=== PATIENT | female | born 1990 | race Caucasian/White ===

== ENCOUNTER 2016-02-13 19:09 | Emergency (ER) | payer OTHER ==
[2016-02-13 19:13] VITALS: BP 135/81; PULSE 93; RESP 18; TEMP 99.1
[2016-02-13] MEDS ORDERED: DIPH,PERTUS(ACELL)TETVAC-LF 0.5 ML VIAL IM ONE (20:47)
--- NOTE | 2016-02-13 20:55 | ED ---
Animal Bite HPI - General Chief Complaint: Animal Bite Stated Complaint: Animal bite/Hand Time Seen by Provider: 02/13/16 20:12 Source: patient, RN notes reviewed Mode of arrival: ambulatory Limitations: no limitations - History of Present Illness Initial Comments: Patient's 25-year-old female presents to the emergency room for evaluation of animal bite. Patient states a few hours ago she was bit by a 10 week old cat. Patient states she was bit in her left hand. Patient states she has been having increasing pain and swelling at the bite carroll. Patient states a previous senior hadoop developer did take the cat to the vet but they are not sure if the cat received immunizations. Patient states it hurts to move her thumb where the bite ashley is. Patient states she's not sure if she is up-to-date on her tetanus vaccine. Patient denies any other injuries during incident. - Related Data Home Medications Medication Instructions Recorded Confirmed Norgestimate-Ethinyl Estradiol 1 tab PO QAM 12/22/13 02/13/16 [Mononessa 28 Tablet] QUEtiapine FUMARATE [SEROquel] 300 mg PO HS 12/22/13 02/13/16 Sertraline [Zoloft] 100 mg PO HS 10/24/14 02/13/16 Levothyroxine Sodium [Synthroid] 50 mcg PO QAM 03/10/15 02/13/16 traZODone HCL 100 mg PO HS 10/04/15 02/13/16 Albuterol Inhaler [Ventolin Hfa 2 puff INHALATION RT-Q6H PRN 10/24/15 02/13/16 Inhaler] OXcarbazepine 600 mg PO QAM 10/24/15 02/13/16 Previous Rx's Medication Instructions Recorded Amoxicillin/Potassium Clav 1 each PO Q12HR #20 tab 02/13/16 [Augmentin 875-125 Tablet] Allergies Allergy/AdvReac Type Severity Reaction Status Date / Time ceftriaxone sodium Allergy Rash/Hives Verified 02/13/16 20:02 [From Rocephin] latex Allergy Rash/Hives Verified 02/13/16 20:02 bupropion HCl AdvReac Hallucinati Verified 02/13/16 20:02 [From Wellbutrin] ons Review of Systems ROS Statement: Those systems with pertinent positive or pertinent negative responses have been documented in the HPI. ROS Other: All systems not noted in ROS Statement are negative. Past Medical History Past Medical History: Asthma, Thyroid Disorder Additional Past Medical History / Comment(s): INSOMNIA; BODERLINE PERSONALITY DISORDER, back pain hx of syncope, MURMUR CHILD,BRONCHITIS,CARPAL TUNNEL, ARHTIRITS,UTI'S, MIGRAINES. History of Any Multi-Drug Resistant Organisms: MRSA Date of last positivie culture/infection: 10/2013, MDRO Source:: HIP/legs/arm/left breast area/ RT INNER GROIN Past Surgical History: Adenoidectomy, Tonsillectomy Additional Past Surgical History / Comment(s): teeth pulled. SEVERAL AREAS ON BODY HAD i&D FROM AREAS WITH MRSA Additional Past Anesthesia/Blood Transfusion Reaction / Comment(s): CLAUSTERPHOBIA Past Psychological History: Bipolar, PTSD Smoking Status: Current every day smoker Past Alcohol Use History: Rare Past Drug Use History: Marijuana - Past Family History Mother Family Medical History: Myocardial Infarction ([place]) Additional Family Medical History / Comment(s): AT AGE 45 FROM [place] Father Additional Family Medical History / Comment(s): WHEN PT WAS 9 MONTHS OLD FROM A BRAIN ANUERYSM General Exam - General Exam Comments Initial Comments: Sitting in exam room in no acute distress. Limitations: no limitations General appearance: alert, in no apparent distress Head exam: Present: atraumatic, normocephalic, normal inspection Eye exam: Present: normal appearance ENT exam: Present: normal exam Neck exam: Present: normal inspection Respiratory exam: Present: normal lung sounds bilaterally. Absent: respiratory distress Cardiovascular Exam: Present: regular rate, normal rhythm, normal heart sounds Left Hand Wrist exam: Present: full ROM, tenderness. Absent: normal inspection (3 puncture wounds over the thenar eminence of the left hand with surrounding mild edema.) Neuro motor exam: Present: wrist extension intact, thumb opposition intact, thumb IP flexion intact, thumb adduction intact, fingers 2-5 abduction intact Vascular: Present: normal capillary refill (Capillary refill less than 2 seconds ), radial pulse (2+), ulnar pulse (2+) Back exam: Present: normal inspection Neurological exam: Present: alert, oriented X3, CN II-XII intact, normal gait Psychiatric exam: Present: normal affect, normal mood Skin exam: Present: warm, dry, intact, normal color. Absent: rash Course Vital Signs 02/13/16 19:11 Temperature 99.1 F Pulse Rate 93 Respiratory 18 Rate Blood Pressure 135/81 O2 Sat by Pulse 99 Oximetry Medical Decision Making - Medical Decision Making Patient is a 25-year-old female since emergency room for evaluation of cat bite. Patient be placed on prophylactic antibiotics and advised to keep the area clean and dry. Patient was updated on her tetanus vaccine. Patient states that she knows the senior hadoop developer of the cat and will keep in contact if there is any abnormal behavior of the cat. Advised patient to return for any worsening symptoms. Patient states she understands everything that was discussed with her. Case discussed with Dr. Xiong. - Radiology Data Radiology results: report reviewed, image reviewed Disposition Clinical Impression: Cat bite Disposition: HOME SELF-CARE Condition: Good Instructions: Animal Bite (ED) Additional Instructions: Tae antibiotics as directed. Soak hand in warm water and antibacterial soap 15 minutes at a time, 3 times a day. Take Tylenol or Motrin as needed for pain. Please follow up with primary care provider in 24-48 hours for reevaluation. If any new symptom arises, symptoms worsen or fever develops, return to ER as soon as possible. Prescriptions: Amoxicillin/Potassium Clav [Augmentin 875-125 Tablet] 1 each PO Q12HR #20 tab Referrals: Jenelle Sherman MD [Primary Care Provider] - 1-2 days Time of Disposition: 21:40
--- NOTE | 2016-02-13 21:15 | XR ---
EXAMINATION TYPE: XR hand complete LT DATE OF EXAM: 02/13/2016 8:56 PM COMPARISON: NONE HISTORY: CAT bite to the base of the thumb today. Pain and swelling. TECHNIQUE: 3 views FINDINGS: There is evidence of soft tissue swelling, but no soft tissue emphysema and no radiopaque f oreign body. The bones and joints have normal appearance. IMPRESSION: Soft tissue swelling apparent.
== END 2016-02-13 21:57 | disposition home or self-care (01) ==
LOC: EC 19:09
DX: S61.052A Open bite of left thumb without damage to nail, initial encounter (principal); W55.01XA Bitten by cat, initial encounter; Z23 Encounter for immunization; E07.9 Disorder of thyroid, unspecified; Z79.899 Other long term (current) drug therapy; Z88.1 Allergy status to other antibiotic agents; Z91.040 Latex allergy status; Z88.8 Allergy status to other drugs, medicaments and biological substances; Z79.3 Long term (current) use of hormonal contraceptives; F60.9 Personality disorder, unspecified; F43.10 Post-traumatic stress disorder, unspecified; F17.200 Nicotine dependence, unspecified, uncomplicated
CPT/HCPCS: 90471; 90715; 99283

== ENCOUNTER 2016-02-20 14:19 | Emergency (ER) | payer OTHER ==
[2016-02-20 14:38] VITALS: BP 149/70; PULSE 88; RESP 20; TEMP 97.8
[2016-02-20] MEDS ORDERED: KETOROLAC 60 MG/2 ML VIAL IM STA (15:41)
[2016-02-20] MEDS ORDERED: methylPREDNISolone SOD SUCCI 125 MG/2 ML VIAL IM STA (15:41)
[2016-02-20] MEDS ORDERED: ORPHENADRINE 30 MG/ML 2 ML VIAL IM STA (15:41)
--- NOTE | 2016-02-20 15:58 | ED ---
Neck Injury/Pain HPI - General Chief Complaint: Neck Pain/Injury Stated Complaint: neck & back pain Time Seen by Provider: 02/20/16 15:34 Source: RN notes reviewed Mode of arrival: ambulatory Limitations: no limitations - History of Present Illness Initial Comments: 25 yo female presents to the ER with cc of left sided neck pain. Patient has been having this pain for about one week. Patient does have a history of herniated disc in the left side of the neck. Patient states that it radiates down the left arm worsening movement of the shoulder the neck and states she has limited movement. Patient denies any fever chills with this. Patient states that she was concerned due to the continued pain she called her doctor and she was referred here. Patient states that she's refinishing an MRI to figure out what is going on. Patient denies any cough cold runny nose with this. Patient states that she is not currently having any recent. Patient states she was placed on Motrin and muscle relaxers did not seem to help. Patient denies any recent fever, chills, shortness of breath, chest pain, back pain, abdominal pain, nausea vomiting, numbness or tingling, dysuria or hematuria, constipation or diarrhea, headaches or visual changes, or any other current symptoms. - Related Data Home Medications Medication Instructions Recorded Confirmed Norgestimate-Ethinyl Estradiol 1 tab PO QAM 12/22/13 02/20/16 [Mononessa 28 Tablet] QUEtiapine FUMARATE [SEROquel] 300 mg PO HS 12/22/13 02/20/16 Sertraline [Zoloft] 100 mg PO HS 10/24/14 02/20/16 Levothyroxine Sodium [Synthroid] 50 mcg PO QAM 03/10/15 02/20/16 traZODone HCL 100 mg PO HS 10/04/15 02/20/16 Albuterol Inhaler [Ventolin Hfa 2 puff INHALATION RT-Q6H PRN 10/24/15 02/20/16 Inhaler] OXcarbazepine 600 mg PO QAM 10/24/15 02/20/16 Cyclobenzaprine [Flexeril] 5 mg PO TID 02/20/16 02/20/16 Previous Rx's Medication Instructions Recorded predniSONE 50 mg PO DAILY #5 tab 02/20/16 traMADol HCl [Ultram] 50 mg PO Q4H PRN #10 tab 02/20/16 Allergies Allergy/AdvReac Type Severity Reaction Status Date / Time ceftriaxone sodium Allergy Rash/Hives Verified 02/20/16 16:00 [From Rocephin] latex Allergy Rash/Hives Verified 02/20/16 16:00 bupropion HCl AdvReac Hallucinati Verified 02/20/16 16:00 [From Wellbutrin] ons Review of Systems ROS Statement: Those systems with pertinent positive or pertinent negative responses have been documented in the HPI. ROS Other: All systems not noted in ROS Statement are negative. Past Medical History Past Medical History: Asthma, Thyroid Disorder Additional Past Medical History / Comment(s): INSOMNIA; BODERLINE PERSONALITY DISORDER, back pain hx of syncope, MURMUR CHILD,BRONCHITIS,CARPAL TUNNEL, ARHTIRITS,UTI'S, MIGRAINES. History of Any Multi-Drug Resistant Organisms: MRSA Date of last positivie culture/infection: 10/2013, MDRO Source:: HIP/legs/arm/left breast area/ RT INNER GROIN Past Surgical History: Adenoidectomy, Tonsillectomy Additional Past Surgical History / Comment(s): teeth pulled. SEVERAL AREAS ON BODY HAD i&D FROM AREAS WITH MRSA Additional Past Anesthesia/Blood Transfusion Reaction / Comment(s): CLAUSTERPHOBIA Past Psychological History: Bipolar, PTSD Smoking Status: Current every day smoker Past Alcohol Use History: Rare Past Drug Use History: Marijuana - Past Family History Mother Family Medical History: Myocardial Infarction ([place]) Additional Family Medical History / Comment(s): AT AGE 45 FROM [place] Father Additional Family Medical History / Comment(s): WHEN PT WAS 9 MONTHS OLD FROM A BRAIN ANUERYSM General Exam Limitations: no limitations General appearance: alert, in no apparent distress Head exam: Present: atraumatic, normocephalic, normal inspection Eye exam: Present: normal appearance, PERRL, EOMI. Absent: scleral icterus, conjunctival injection, periorbital swelling ENT exam: Present: normal exam, mucous membranes moist Neck exam: Present: normal inspection, tenderness (Diffusely), full ROM ( Limited due to pain). Absent: meningismus, lymphadenopathy, thyromegaly Respiratory exam: Present: normal lung sounds bilaterally. Absent: respiratory distress, wheezes, rales, rhonchi, stridor Cardiovascular Exam: Present: regular rate, normal rhythm, normal heart sounds. Absent: systolic murmur, diastolic murmur, rubs, gallop, clicks Extremities exam: Present: normal inspection, full ROM, tenderness (Over the left shoulder), normal capillary refill. Absent: pedal edema, joint swelling, calf tenderness Back exam: Present: normal inspection Skin exam: Present: warm, dry, intact, normal color. Absent: rash Course Vital Signs 02/20/16 14:36 Temperature 97.8 F Pulse Rate 88 Respiratory 20 Rate Blood Pressure 149/70 O2 Sat by Pulse 99 Oximetry Medical Decision Making - Medical Decision Making 25-year-old female presents emergency Department chief complaint of neck pain. At this time patient did undergo an x-ray does not show an acute process. Patient was given injections and was started on steroids for home. Follow-up with Dr. Godinez. We discussed return parameters. We discussed all the patient' s questions. She stated that she understood and is in agreement the plan. Patient will be discharged. - Radiology Data Radiology results: report reviewed, image reviewed Disposition Clinical Impression: Cervical strain Disposition: HOME SELF-CARE Condition: Stable Instructions: Cervical Strain (ED) Additional Instructions: Please use medication as discussed. Please follow up with family doctor if symptoms have not improved over the next two days. Please return to the emergency room if your symptoms increase or worsen or for any other concerns. Prescriptions: predniSONE 50 mg PO DAILY #5 tab traMADol HCl [Ultram] 50 mg PO Q4H PRN #10 tab PRN Reason: Pain Referrals: Jenelle Sherman MD [Primary Care Provider] - 1-2 days Time of Disposition: 16:31
--- NOTE | 2016-02-20 16:28 | XR ---
EXAMINATION TYPE: XR cervical spine comp DATE OF EXAM: 02/20/2016 4:14 PM TECHNIQUE: Frontal, lateral, oblique, and open mouth view of the cervical spine are obtained. HISTORY: Right-sided neck pain. Popping injury. COMPARISON: Complete spine x-ray November 26, 2014 FINDINGS: The cervical spine is visualized in its entirety from C1 thru the top of T1 level, there i s stable and straightened alignment without evidence of acute fracture or dislocation. The pre-verte bral soft tissue appears within normal limits. The C1-C2 articulation is within normal limits on the open mouth view. Vertebral body heights and disc space heights are maintained The oblique images ar e within normal limits. Overlying soft tissue is unremarkable. IMPRESSION: Stable straightening of cervical spine otherwise unremarkable study. No acute fracture or dislocation is noted.
--- NOTE | 2016-02-20 16:32 | ED ---
Disposition Clinical Impression: Cervical strain Disposition: HOME SELF-CARE Condition: Stable Instructions: Cervical Strain (ED) Additional Instructions: Please use medication as discussed. Please follow up with family doctor if symptoms have not improved over the next two days. Please return to the emergency room if your symptoms increase or worsen or for any other concerns. Prescriptions: predniSONE 50 mg PO DAILY #5 tab traMADol HCl [Ultram] 50 mg PO Q4H PRN #10 tab PRN Reason: Pain Referrals: Jenelle Sherman MD [Primary Care Provider] - 1-2 days Luann Perez DO [Doctor of Osteopathic Medicine] - 1-2 days
== END 2016-02-20 16:44 | disposition home or self-care (01) ==
LOC: EC 14:19
DX: S16.1XXA Strain of muscle, fascia and tendon at neck level, initial encounter (principal); X58.XXXA Exposure to other specified factors, initial encounter; E07.9 Disorder of thyroid, unspecified; J45.909 Unspecified asthma, uncomplicated; F60.3 Borderline personality disorder; F31.9 Bipolar disorder, unspecified; F43.10 Post-traumatic stress disorder, unspecified; F17.200 Nicotine dependence, unspecified, uncomplicated; Z79.3 Long term (current) use of hormonal contraceptives; Z79.899 Other long term (current) drug therapy; Z88.1 Allergy status to other antibiotic agents; Z91.040 Latex allergy status
CPT/HCPCS: 99283; 96372 ×3; 72050; J2360; J2930; J1885

== ENCOUNTER → 2016-03-02 | Outpatient (CLI) | payer OTHER ==
--- NOTE | 2016-03-02 22:19 | MR ---
EXAMINATION TYPE: MR cspine/lspine wo con DATE OF EXAM: 03/02/2016 8:24 PM COMPARISON: 01/23/2014 HISTORY: Pain,Numbness,and Tingling upper and lower back Standard multiplanar, multisequence MRI departmental protocol Multiplanar, multisequence images of the cervical and lumbar spine were acquired. FINDINGS: The cervical vertebra have normal alignment. Disc spaces are fairly normal. There are posterior disc herniations at C5-6 and to a lesser extent C6-7. The spinal canal is narrowed to 7.5 mm at C5-6. Cerv ical spinal cord has normal signal pattern. There is no edema. Brainstem is intact. There is no cervi elida paraspinal mass. The lumbar vertebra have normal alignment. Disc spaces are normal. Neural foramina are widely patent. Posterior elements are intact. There is no compression fracture. Lumbar nerve roots appear normal. T here is no evidence of paraspinal mass. IMPRESSION: Cervical spine There is a new C5-6 moderate posterior cervical disc herniation in this relatively young patient comp ared to last exam. There is mild spinal stenosis. There is a small posterior C6-7 disc bulge without any impingement on the cervical spinal cord. Lumbar spine Normal MRI scan of the lumbar spine.
== END | disposition home or self-care (01) ==
LOC: RADMRIMAIN 19:33
PROVIDERS: ATTEND Internal Medicine
DX: M48.02 Spinal stenosis, cervical region (principal); M50.222 Other cervical disc displacement at C5-C6 level
CPT/HCPCS: 72141; 72148

== ENCOUNTER 2016-03-05 16:39 | Emergency (ER) | payer OTHER ==
[2016-03-05] MEDS ORDERED: ACETAMINOPHEN TAB 500 MG TAB PO STA (20:05)
--- NOTE | 2016-03-05 20:05 | ED ---
General Adult HPI - General Chief complaint: Nausea/Vomiting/Diarrhea Stated complaint: Skin Infection Time Seen by Provider: 03/05/16 19:12 Source: patient, RN notes reviewed Mode of arrival: wheelchair Limitations: no limitations - History of Present Illness Initial comments: 25-year-old female presents emergency Department chief complaint of multiple sores throughout her body as well as dysuria. Patient states she does have history of versus she's noticed possible little sores throughout the body she is concerned that her MRSA may be back. Patient states she's also had some burning and stinging with urination. Patient denies any fever or chills. Patient states that she just feels crampy and tired and weak. Patient states that there is no other symptoms at this time. Patient states she hasn't actually having diarrhea with that she has had some nausea but no vomiting. Patient states she was concerned due to just how often she felt so she thought that she should be evaluated. Patient denies any recent fever, chills, shortness of breath, chest pain, back pain, abdominal pain, vomiting, numbness or tingling, dysuria or hematuria, constipation or diarrhea, headaches or visual changes, or any other current symptoms. - Related Data Home Medications Medication Instructions Recorded Confirmed Norgestimate-Ethinyl Estradiol 1 tab PO QAM 12/22/13 03/05/16 [Mononessa 28 Tablet] QUEtiapine FUMARATE [SEROquel] 300 mg PO HS 12/22/13 03/05/16 Sertraline [Zoloft] 100 mg PO HS 10/24/14 03/05/16 Levothyroxine Sodium [Synthroid] 50 mcg PO QAM 03/10/15 03/05/16 traZODone HCL 100 mg PO HS 10/04/15 03/05/16 Albuterol Inhaler [Ventolin Hfa 2 puff INHALATION RT-Q6H PRN 10/24/15 03/05/16 Inhaler] OXcarbazepine 600 mg PO QAM 10/24/15 03/05/16 Cyclobenzaprine [Flexeril] 5 mg PO TID 02/20/16 03/05/16 Previous Rx's Medication Instructions Recorded Phenazopyridine [Pyridium] 100 mg PO TID #9 tablet 03/05/16 Sulfamethox-Tmp 800-160Mg [Bactrim 2 each PO Q12HR #56 tab 03/05/16 DS 800-160 mg] Allergies Allergy/AdvReac Type Severity Reaction Status Date / Time ceftriaxone sodium Allergy Rash/Hives Verified 03/05/16 19:58 [From Rocephin] latex Allergy Rash/Hives Verified 03/05/16 19:58 bupropion HCl AdvReac Hallucinati Verified 03/05/16 19:58 [From Wellbutrin] ons Review of Systems ROS Statement: Those systems with pertinent positive or pertinent negative responses have been documented in the HPI. ROS Other: All systems not noted in ROS Statement are negative. Past Medical History Past Medical History: Asthma, Thyroid Disorder Additional Past Medical History / Comment(s): INSOMNIA; BODERLINE PERSONALITY DISORDER, back pain hx of syncope, MURMUR CHILD,BRONCHITIS,CARPAL TUNNEL, ARHTIRITS,UTI'S, MIGRAINES. History of Any Multi-Drug Resistant Organisms: MRSA Date of last positivie culture/infection: 10/2013, MDRO Source:: HIP/legs/arm/left breast area/ RT INNER GROIN Past Surgical History: Adenoidectomy, Tonsillectomy Additional Past Surgical History / Comment(s): teeth pulled. SEVERAL AREAS ON BODY HAD i&D FROM AREAS WITH MRSA Additional Past Anesthesia/Blood Transfusion Reaction / Comment(s): CLAUSTERPHOBIA Past Psychological History: Bipolar, PTSD Smoking Status: Current every day smoker Past Alcohol Use History: Rare Past Drug Use History: Marijuana - Past Family History Mother Family Medical History: Myocardial Infarction ([place]) Additional Family Medical History / Comment(s): AT AGE 45 FROM [place] Father Additional Family Medical History / Comment(s): WHEN PT WAS 9 MONTHS OLD FROM A BRAIN ANUERYSM General Exam - General Exam Comments Initial Comments: General: The patient is awake and alert, in no distress, and does not appear acutely ill. Eye: Pupils are equal, round and reactive to light, extra-ocular movements are intact; there is normal conjunctiva bilaterally. No signs of icterus. Ears, nose, mouth and throat: There are moist mucous membranes and no oral lesions. Neck: The neck is supple, there is no tenderness. Cardiovascular: There is a regular rate and rhythm. No murmur, rub or gallop is appreciated. Respiratory: Lungs are clear to auscultation, respirations are non-labored, breath sounds are equal. No wheezes, stridor, rales, or rhonchi. Gastrointestinal: Soft, non-distended, non-tender abdomen without masses or organomegaly noted. There is no rebound or guarding present. No CVA tenderness. Bowel sounds are unremarkable. Back: There is no tenderness to palpation in the midline. There is no obvious deformity. No rashes noted. Musculoskeletal: Normal ROM, no tenderness, There is no pedal edema. There is no calf tenderness or swelling. Sensation intact. Pulses equal bilaterally 2+. Neurological: CN II-XII intact, There are no obvious motor or sensory deficits. Coordination appears grossly intact. Speech is normal. Skin: Skin is warm and dry and no rashes, does appear to have indurated area under the bilateral armpits and to the right knee no sign of fluctuation no sign of drainage no drainable obvious abscess noted. Psychiatric: Cooperative, appropriate mood & affect, normal judgment. Limitations: no limitations Course Vital Signs 03/05/16 17:10 Temperature 98.9 F Pulse Rate 88 Respiratory 16 Rate Blood Pressure 134/60 O2 Sat by Pulse 98 Oximetry Medical Decision Making - Medical Decision Making 25-year-old female presents emergency Department chief complaint of sores with a history of MRSA that do not show any obvious drainable abscesses as well as dysuria. At this time we will send a urinalysis. Patient's urinalysis initially appeared of UTI. We will start patient on Bactrim which should cover disorders as well as her UTI. We discussed return parameters and follow-up. We discussed all the patient's questions. She stated that she understood. She will be discharged home. - Lab Data Lab Results 03/05/16 03/05/16 Range/Units 20:29 20:29 Urine Color Yellow Urine Appearance Cloudy H (Clear) Urine pH 6.0 (5.0-8.0) Ur Specific Wendell 1.018 (1.001-1.035) Urine Protein Trace H (Negative) Urine Glucose (UA) Negative (Negative) Urine Ketones Negative (Negative) Urine Blood Negative (Negative) Urine Nitrate Positive H (Negative) Urine Bilirubin Negative (Negative) Urine Urobilinogen <2.0 (<2.0) mg/dL Ur Leukocyte Esterase Trace H (Negative) Urine WBC 7 H (0-5) /hpf Ur Squamous Epith Cells 25 H (0-4) /hpf Urine Bacteria Occasional H (None) /hpf Urine Mucus Occasional H (None) /hpf Urine HCG, Qual Not Detected (Not Detectd) Disposition Clinical Impression: Urinary tract infection, Abscess of axilla, right Disposition: HOME SELF-CARE Condition: Stable Instructions: Abscess (ED), Urinary Tract Infection in Women (ED) Additional Instructions: Please use medication as discussed. Please follow up with family doctor if symptoms have not improved over the next two days. Please return to the emergency room if your symptoms increase or worsen or for any other concerns. Prescriptions: Phenazopyridine [Pyridium] 100 mg PO TID #9 tablet Sulfamethox-Tmp 800-160Mg [Bactrim DS 800-160 mg] 2 each PO Q12HR #56 tab Referrals: Jenelle Sherman MD [Primary Care Provider] - 1-2 days Time of Disposition: 21:03
[2016-03-05 20:42] LABS: Appearance,Urine Cloudy (Clear); Bacteria,Urine Occasional /hpf; Bilirubin,Urine Negative (Negative); Glucose,Urine (UA) Negative (Negative); Ketones,Urine Negative (Negative); Leukocyte Esterase,Urine Trace (Negative); Mucus,Urine Occasional /hpf; Nitrite,Urine Positive (Negative); Particle Count 116093; Protein,Urine Trace (Negative); Specific Gravity,Urine 1.018 (1.001-1.035); Squamous Epithelial Cell,Urine 25 /hpf (0-4); UA Billing (MACRO vs. MICRO) MICRO; Urobilinogen,Urine <2.0 mg/dL (<2.0); WBC,Urine 7 /hpf (0-5)
[2016-03-05 21:11] VITALS: BP 119/66; PULSE 73; RESP 18; TEMP 98.5
== END 2016-03-05 21:11 | disposition home or self-care (01) ==
LOC: EC 16:39
DX: N39.0 Urinary tract infection, site not specified (principal); L02.411 Cutaneous abscess of right axilla; Z86.14 Personal history of Methicillin resistant Staphylococcus aureus infection; E07.9 Disorder of thyroid, unspecified; F60.3 Borderline personality disorder; F31.9 Bipolar disorder, unspecified; F43.10 Post-traumatic stress disorder, unspecified; F17.200 Nicotine dependence, unspecified, uncomplicated; Z79.3 Long term (current) use of hormonal contraceptives; Z79.899 Other long term (current) drug therapy; Z88.1 Allergy status to other antibiotic agents; Z91.040 Latex allergy status
CPT/HCPCS: 81001; 81025; 99284

== ENCOUNTER 2016-04-28 13:02 | Emergency (ER) | payer OTHER ==
[2016-04-28 13:10] VITALS: BP 122/58; PULSE 96; RESP 16; TEMP 98.8
--- NOTE | 2016-04-28 13:45 | ED ---
Skin/Abscess/FB HPI - General Chief complaint: Skin/Abscess/Foreign Body Stated complaint: eye problem Time Seen by Provider: 04/28/16 13:24 Source: patient, RN notes reviewed Mode of arrival: ambulatory Limitations: no limitations - History of Present Illness Initial comments: 25-year-old female presents to the emergency Department chief complaint of redness and swelling of the left upper lip. Patient states that this started about yesterday today she noticed a white head and she did pop and she did get some fluid out. 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 Patient states it is painful. Patient states she hasn't had any fevers or chills with this. Patient states that for the stye left eye that she is currently putting a cream on as well. Patient does admit to a history of multiple abscesses in the past. Patient states he normally in the axilla area. Patient states that she was concerned due to her continued symptoms in pain so she thought that she should be evaluated. Patient denies any recent fever, chills, shortness of breath, chest pain, back pain, abdominal pain, nausea vomiting, numbness or tingling, dysuria or hematuria, constipation or diarrhea, headaches or visual changes, or any other current symptoms. - Related Data Home Medications Medication Instructions Recorded Confirmed Norgestimate-Ethinyl Estradiol 1 tab PO QAM 12/22/13 04/28/16 [Mononessa 28 Tablet] QUEtiapine FUMARATE [SEROquel] 300 mg PO HS 12/22/13 04/28/16 Sertraline [Zoloft] 400 mg PO HS 10/24/14 04/28/16 Levothyroxine Sodium [Synthroid] 50 mcg PO QAM 03/10/15 04/28/16 traZODone HCL 100 mg PO HS 10/04/15 04/28/16 Albuterol Inhaler [Ventolin Hfa 2 puff INHALATION RT-Q6H PRN 10/24/15 04/28/16 Inhaler] OXcarbazepine 600 mg PO QAM 10/24/15 04/28/16 Cyclobenzaprine [Flexeril] 5 mg PO TID 02/20/16 04/28/16 Gabapentin [Neurontin] 100 mg PO TID 04/28/16 04/28/16 Previous Rx's Medication Instructions Recorded Mupirocin 2% Oint [Bactroban Oint] 1 applic TOPICAL TID #22 gm 04/28/16 Sulfamethox-Tmp 800-160Mg [Bactrim 2 each PO Q12HR #56 tab 04/28/16 DS 800-160 mg] Allergies Allergy/AdvReac Type Severity Reaction Status Date / Time ceftriaxone sodium Allergy Rash/Hives Verified 04/28/16 13:10 [From Rocephin] latex Allergy Rash/Hives Verified 04/28/16 13:10 bupropion HCl AdvReac Hallucinati Verified 04/28/16 13:10 [From Wellbutrin] ons Review of Systems ROS Statement: Those systems with pertinent positive or pertinent negative responses have been documented in the HPI. ROS Other: All systems not noted in ROS Statement are negative. Past Medical History Past Medical History: Asthma, Thyroid Disorder Additional Past Medical History / Comment(s): INSOMNIA; BODERLINE PERSONALITY DISORDER, back pain hx of syncope, MURMUR CHILD,BRONCHITIS,CARPAL TUNNEL, ARHTIRITS,UTI'S, MIGRAINES. History of Any Multi-Drug Resistant Organisms: MRSA Date of last positivie culture/infection: 10/2013, MDRO Source:: HIP/legs/arm/left breast area/ RT INNER GROIN Past Surgical History: Adenoidectomy, Tonsillectomy Additional Past Surgical History / Comment(s): teeth pulled. SEVERAL AREAS ON BODY HAD i&D FROM AREAS WITH MRSA Additional Past Anesthesia/Blood Transfusion Reaction / Comment(s): CLAUSTERPHOBIA Past Psychological History: Bipolar, PTSD Smoking Status: Current every day smoker Past Alcohol Use History: Rare Past Drug Use History: Marijuana - Past Family History Mother Family Medical History: Myocardial Infarction ([place]) Additional Family Medical History / Comment(s): AT AGE 45 FROM [place] Father Additional Family Medical History / Comment(s): WHEN PT WAS 9 MONTHS OLD FROM A BRAIN ANUERYSM General Exam Limitations: no limitations General appearance: alert, in no apparent distress Head exam: Present: other Eye exam: Present: normal appearance (Patient does appear to have a small pimple -like structure to the left upper lip that does have associated swelling of the left upper lip), PERRL, EOMI, other (Patient does appear to have stye to the left inner eye). Absent: scleral icterus, conjunctival injection, periorbital swelling Pupils: Present: normal accommodation ENT exam: Present: normal exam, mucous membranes moist Neck exam: Present: normal inspection. Absent: tenderness, meningismus, lymphadenopathy Respiratory exam: Present: normal lung sounds bilaterally. Absent: respiratory distress, wheezes, rales, rhonchi, stridor Cardiovascular Exam: Present: regular rate, normal rhythm, normal heart sounds. Absent: systolic murmur, diastolic murmur, rubs, gallop, clicks Neurological exam: Present: alert, oriented X3, CN II-XII intact. Absent: motor sensory deficit Psychiatric exam: Present: normal affect, normal mood Skin exam: Present: warm, dry, intact, normal color. Absent: rash Course Vital Signs 04/28/16 13:07 Temperature 98.8 F Pulse Rate 96 Respiratory 16 Rate Blood Pressure 122/58 O2 Sat by Pulse 98 Oximetry Medical Decision Making - Medical Decision Making 24-year-old female presents to the emergency Department chief complaint of facial abscess and stye left eye. This time we will start the patient on Bactroban cream. We will also start the patient antibiotics due to her history of MRSA. We discussed warm compresses .we did discuss return parameters and follow-up. We discussed all the patient's family's questions. He stated they understand patient is tender in plan. She'll be discharged. Disposition Clinical Impression: Hordeolum of left lower eyelid, Facial abscess Disposition: HOME SELF-CARE Condition: Stable Instructions: Abscess (ED), Stye (ED) Additional Instructions: Please use medication as discussed. Please follow up with family doctor if symptoms have not improved over the next two days. Please return to the emergency room if your symptoms increase or worsen or for any other concerns. Prescriptions: Mupirocin 2% Oint [Bactroban Oint] 1 applic TOPICAL TID #22 gm Sulfamethox-Tmp 800-160Mg [Bactrim DS 800-160 mg] 2 each PO Q12HR #56 tab Referrals: Jenelle Sherman MD [Primary Care Provider] - 1-2 days Time of Disposition: 13:45
== END 2016-04-28 13:49 | disposition home or self-care (01) ==
LOC: EC 13:02
DX: H00.015 Hordeolum externum left lower eyelid (principal); L02.01 Cutaneous abscess of face; E07.9 Disorder of thyroid, unspecified; F31.9 Bipolar disorder, unspecified; F43.10 Post-traumatic stress disorder, unspecified; F60.3 Borderline personality disorder; G56.00 Carpal tunnel syndrome, unspecified upper limb; F17.200 Nicotine dependence, unspecified, uncomplicated; Z86.14 Personal history of Methicillin resistant Staphylococcus aureus infection; Z98.890 Other specified postprocedural states; Z88.1 Allergy status to other antibiotic agents; Z91.040 Latex allergy status; Z88.8 Allergy status to other drugs, medicaments and biological substances; Z79.899 Other long term (current) drug therapy
CPT/HCPCS: 99283

== ENCOUNTER 2016-04-28 21:50 | Emergency (ER) | payer OTHER ==
[2016-04-28 22:00] VITALS: BP 149/82; PULSE 100; RESP 20; TEMP 100
[2016-04-28] MEDS ORDERED: IBUPROFEN 600 MG TAB PO STA (22:08)
[2016-04-28] MEDS ORDERED: MUPIROCIN 2% OINT 22 GM TUBE TOPICAL STA (22:08)
[2016-04-28] MEDS ORDERED: CLINDAMYCIN 150 MG CAP PO STA (22:08)
--- NOTE | 2016-04-28 22:12 | ED ---
Skin/Abscess/FB HPI - General Chief complaint: Skin/Abscess/Foreign Body Stated complaint: Revist/poss mrsa Time Seen by Provider: 04/28/16 22:01 Source: patient, RN notes reviewed Mode of arrival: ambulatory Limitations: no limitations - History of Present Illness Initial comments: 25-year-old female presents to the emergency Department chief complaint of left- sided facial swelling. Patient states that this started today. Patient states she was seen here she was prescribed and maxillary should not start mention of some increased swelling that is wondering if she can get her first dose of antibiotics. Patient states she hasn't had any nausea or vomiting with this. Patient states she has noticed increased swelling she has been using warm compresses. Patient denies any drainage from the area. Patient states she was concerned due to the continued swelling so she thought that she should be evaluated. Patient states that she is not currently having any other symptoms at this time.Patient denies any recent fever, chills, shortness of breath, chest pain, back pain, abdominal pain, nausea vomiting, numbness or tingling, dysuria or hematuria, constipation or diarrhea, headaches or visual changes, or any other current symptoms. - Related Data Home Medications Medication Instructions Recorded Confirmed Norgestimate-Ethinyl Estradiol 1 tab PO QAM 12/22/13 04/28/16 [Mononessa 28 Tablet] QUEtiapine FUMARATE [SEROquel] 300 mg PO HS 12/22/13 04/28/16 Sertraline [Zoloft] 400 mg PO HS 10/24/14 04/28/16 Levothyroxine Sodium [Synthroid] 50 mcg PO QAM 03/10/15 04/28/16 traZODone HCL 100 mg PO HS 10/04/15 04/28/16 Albuterol Inhaler [Ventolin Hfa 2 puff INHALATION RT-Q6H PRN 10/24/15 04/28/16 Inhaler] OXcarbazepine 600 mg PO QAM 10/24/15 04/28/16 Cyclobenzaprine [Flexeril] 5 mg PO TID 02/20/16 04/28/16 Gabapentin [Neurontin] 100 mg PO TID 04/28/16 04/28/16 Previous Rx's Medication Instructions Recorded Clindamycin [Cleocin] 450 mg PO Q8HR #90 capsule 04/28/16 Mupirocin 2% Oint [Bactroban Oint] 1 applic TOPICAL TID #22 gm 04/28/16 Sulfamethox-Tmp 800-160Mg [Bactrim 2 each PO Q12HR #56 tab 04/28/16 DS 800-160 mg] Allergies Allergy/AdvReac Type Severity Reaction Status Date / Time ceftriaxone sodium Allergy Rash/Hives Verified 04/28/16 13:10 [From Rocephin] latex Allergy Rash/Hives Verified 04/28/16 13:10 bupropion HCl AdvReac Hallucinati Verified 04/28/16 13:10 [From Wellbutrin] ons Review of Systems ROS Statement: Those systems with pertinent positive or pertinent negative responses have been documented in the HPI. ROS Other: All systems not noted in ROS Statement are negative. Past Medical History Past Medical History: Asthma, Thyroid Disorder Additional Past Medical History / Comment(s): INSOMNIA; BODERLINE PERSONALITY DISORDER, back pain hx of syncope, MURMUR CHILD,BRONCHITIS,CARPAL TUNNEL, ARHTIRITS,UTI'S, MIGRAINES. History of Any Multi-Drug Resistant Organisms: MRSA Date of last positivie culture/infection: 10/2013,-2015 MDRO Source:: HIP/legs/arm/left breast area/ RT INNER GROIN Past Surgical History: Adenoidectomy, Tonsillectomy Additional Past Surgical History / Comment(s): teeth pulled. SEVERAL AREAS ON BODY HAD i&D FROM AREAS WITH MRSA Additional Past Anesthesia/Blood Transfusion Reaction / Comment(s): CLAUSTERPHOBIA Past Psychological History: Bipolar, PTSD Smoking Status: Current every day smoker Past Alcohol Use History: Rare Past Drug Use History: Marijuana - Past Family History Mother Family Medical History: Myocardial Infarction ([place]) Additional Family Medical History / Comment(s): AT AGE 45 FROM [place] Father Additional Family Medical History / Comment(s): WHEN PT WAS 9 MONTHS OLD FROM A BRAIN ANUERYSM General Exam Limitations: no limitations General appearance: alert, in no apparent distress Head exam: Present: other (Patient is Swelling of the upper left lip.) Eye exam: Present: normal appearance, PERRL, EOMI. Absent: scleral icterus, conjunctival injection, periorbital swelling Neck exam: Present: normal inspection. Absent: tenderness, meningismus, lymphadenopathy Respiratory exam: Present: normal lung sounds bilaterally. Absent: respiratory distress, wheezes, rales, rhonchi, stridor Cardiovascular Exam: Present: regular rate, normal rhythm, normal heart sounds. Absent: systolic murmur, diastolic murmur, rubs, gallop, clicks Neurological exam: Present: alert, oriented X3, CN II-XII intact. Absent: motor sensory deficit Psychiatric exam: Present: normal affect, normal mood Skin exam: Present: warm, dry, intact, normal color. Absent: rash Course Vital Signs 04/28/16 21:57 Temperature 100 F H Pulse Rate 100 Respiratory 20 Rate Blood Pressure 149/82 O2 Sat by Pulse 98 Oximetry Medical Decision Making - Medical Decision Making 25-year-old female presents emergency Department with what appears to be a cellulitis of the left upper lip. At this time we will patient on clindamycin due to her history of MRSA. We'll give her first dose here as well as the pain. We discussed return parameters and follow-up. Patient stated that she understood all questions have been answered. She will be discharged. Disposition Clinical Impression: Facial abscess Disposition: HOME SELF-CARE Condition: Stable Instructions: Abscess (ED) Additional Instructions: Please use medication as discussed. Please follow up with family doctor if symptoms have not improved over the next two days. Please return to the emergency room if your symptoms increase or worsen or for any other concerns. Prescriptions: Clindamycin [Cleocin] 450 mg PO Q8HR #90 capsule Referrals: Jenelle Sherman MD [Primary Care Provider] - 1-2 days Time of Disposition: 22:11
== END 2016-04-28 22:26 | disposition home or self-care (01) ==
LOC: EC 21:50
DX: K13.0 Diseases of lips (principal); E07.9 Disorder of thyroid, unspecified; F31.9 Bipolar disorder, unspecified; F43.10 Post-traumatic stress disorder, unspecified; F60.3 Borderline personality disorder; M19.90 Unspecified osteoarthritis, unspecified site; F17.200 Nicotine dependence, unspecified, uncomplicated; Z79.3 Long term (current) use of hormonal contraceptives; Z79.899 Other long term (current) drug therapy; Z88.1 Allergy status to other antibiotic agents; Z88.8 Allergy status to other drugs, medicaments and biological substances; Z91.040 Latex allergy status
CPT/HCPCS: 99283

== ENCOUNTER 2016-04-29 12:16 | Inpatient (IN) | payer OTHER ==
[2016-04-29] MEDS ORDERED: IV VANCOMYCIN PER PHARMACY 1 EACH MISC MISCELLANE PRN (12:27)
[2016-04-29] MEDS ORDERED: KETOROLAC 30 MG/ML 1 ML VIAL IVP STA (12:27)
[2016-04-29] MEDS ORDERED: SODIUM CHLORIDE 0.9% 1,000 ML IV STA (12:27)
--- NOTE | 2016-04-29 12:39 | ED ---
Skin/Abscess/FB HPI <Edmar Restrepo - Last Filed: 04/29/16 13:41> - General Source: patient, RN notes reviewed Mode of arrival: ambulatory Limitations: no limitations <Gabby Salvador - Last Filed: 04/29/16 13:44> - General Chief complaint: Skin/Abscess/Foreign Body Stated complaint: LIP ISSUE Time Seen by Provider: 04/29/16 12:25 - History of Present Illness Initial comments: 24-year-old female presents to the emergency department with a chief complaint of left-sided facial swelling. Patient states that this started over the last 3 or 4 days. Patient states she was seen here yesterday starting antibiotics. Patient states continues to be swollen and tender today. Patient states that she was concerned because increased swelling in the low-grade fever so she thought that she should be evaluated. Patient states he tried Motrin with no improvement. Patient states she has been using the antibiotics. Patient states that she does have a history of MRSA. Patient has been here 2 times in this is her third visit in the last 12 hours. Patient denies any recent shortness of breath, chest pain, back pain, abdominal pain, nausea vomiting, numbness or tingling, dysuria or hematuria, constipation or diarrhea, headaches or visual changes, or any other current symptoms. (Gabby Salvador) - Related Data Home Medications Medication Instructions Recorded Confirmed Norgestimate-Ethinyl Estradiol 1 tab PO QAM 12/22/13 04/29/16 [Mononessa 28 Tablet] Sertraline [Zoloft] 100 mg PO HS 10/24/14 04/29/16 Levothyroxine Sodium [Synthroid] 50 mcg PO QAM 03/10/15 04/29/16 traZODone HCL 100 mg PO HS 10/04/15 04/29/16 Albuterol Inhaler [Ventolin Hfa 2 puff INHALATION RT-Q6H PRN 10/24/15 04/29/16 Inhaler] OXcarbazepine 600 mg PO BID 10/24/15 04/29/16 Cyclobenzaprine [Flexeril] 5 mg PO TID 02/20/16 04/29/16 Gabapentin [Neurontin] 100 mg PO TID 04/28/16 04/29/16 QUEtiapine [SEROquel] 400 mg PO HS 04/29/16 04/29/16 Previous Rx's Medication Instructions Recorded Clindamycin [Cleocin] 450 mg PO Q8HR #90 capsule 04/28/16 Mupirocin 2% Oint [Bactroban Oint] 1 applic TOPICAL TID #22 gm 04/28/16 Allergies Allergy/AdvReac Type Severity Reaction Status Date / Time ceftriaxone sodium Allergy Rash/Hives Verified 04/29/16 12:53 [From Rocephin] latex Allergy Rash/Hives Verified 04/29/16 12:53 bupropion HCl AdvReac Hallucinati Verified 04/29/16 12:53 [From Wellbutrin] ons Review of Systems ROS Other: All systems not noted in ROS Statement are negative. <Edmar Restrepo - Last Filed: 04/29/16 13:41> ROS Other: All systems not noted in ROS Statement are negative. <Gabby Salvador - Last Filed: 04/29/16 13:44> ROS Statement: Those systems with pertinent positive or pertinent negative responses have been documented in the HPI. Past Medical History Past Medical History: Asthma, Thyroid Disorder Additional Past Medical History / Comment(s): INSOMNIA; BODERLINE PERSONALITY DISORDER, back pain hx of syncope, MURMUR CHILD,BRONCHITIS,CARPAL TUNNEL, ARHTIRITS,UTI'S, MIGRAINES. History of Any Multi-Drug Resistant Organisms: MRSA Date of last positivie culture/infection: 10/2013,-2015 MDRO Source:: HIP/legs/arm/left breast area/ RT INNER GROIN Past Surgical History: Adenoidectomy, Tonsillectomy Additional Past Surgical History / Comment(s): teeth pulled. SEVERAL AREAS ON BODY HAD i&D FROM AREAS WITH MRSA Additional Past Anesthesia/Blood Transfusion Reaction / Comment(s): CLAUSTERPHOBIA Past Psychological History: Bipolar, PTSD Smoking Status: Current every day smoker Past Alcohol Use History: Rare Past Drug Use History: Marijuana - Past Family History Mother Family Medical History: Myocardial Infarction ([place]) Additional Family Medical History / Comment(s): AT AGE 45 FROM [place] Father Additional Family Medical History / Comment(s): WHEN PT WAS 9 MONTHS OLD FROM A BRAIN ANUERYSM <Gabby Salvador - Last Filed: 04/29/16 13:44> General Exam <Edmar Restrepo - Last Filed: 04/29/16 13:41> Limitations: no limitations <Gabby Salvador - Last Filed: 04/29/16 13:44> - General Exam Comments Initial Comments: General: The patient is awake and alert, in no distress, and does not appear acutely ill. Eye: Pupils are equal, round and reactive to light, extra-ocular movements are intact; there is normal conjunctiva bilaterally. No signs of icterus. Ears, nose, mouth and throat: There are moist mucous membranes and no oral lesions. Going to left upper lip that extends into the cheek, patient has no obvious abscess on oral exam. Neck: The neck is supple, there is no tenderness Cardiovascular: There is a regular rate and rhythm. No murmur, rub or gallop is appreciated. Respiratory: Lungs are clear to auscultation, respirations are non-labored, breath sounds are equal. No wheezes, stridor, rales, or rhonchi. Back: There is no tenderness to palpation in the midline. There is no obvious deformity. No rashes noted. Musculoskeletal: Normal ROM, no tenderness, There is no pedal edema. There is no calf tenderness or swelling. Sensation intact. Pulses equal bilaterally 2+. Neurological: CN II-XII intact, There are no obvious motor or sensory deficits. Coordination appears grossly intact. Speech is normal. Skin: Skin is warm and dry and no rashes or lesions are noted. Psychiatric: Cooperative, appropriate mood & affect, normal judgment. (Gabby Salvador) Course <Edmar Restrepo - Last Filed: 04/29/16 13:41> <Gabby Salvador - Last Filed: 04/29/16 13:44> Vital Signs 04/29/16 12:19 Temperature 100.0 F H Pulse Rate 109 H Respiratory 22 Rate Blood Pressure 139/84 O2 Sat by Pulse 96 Oximetry - Reevaluation(s) Reevaluation #1: 04/29/16 13:41 Patient does meet sepsis criteria. Unasyn will be started in addition to vancomycin. Case discussed in detail with Dr. Yee, who will admit his patient. Patient updated. Patient reevaluated by myself. (Edmar Restrepo) Medical Decision Making - Lab Data Result diagrams: 04/29/16 12:54 04/29/16 12:54 <Edmar Restrepo - Last Filed: 04/29/16 13:41> - Lab Data Result diagrams: 04/29/16 12:54 04/29/16 12:54 <Gabby Salvador - Last Filed: 04/29/16 13:44> - Medical Decision Making 25-year-old female presents for appears to be a facial cellulitis. At this time unless it patient IV antibiotics. She has been here 3 times last 12 hours will admit for IV antibiotics and had a MRSA coverage due to her history. This was discussed the patient and she is in agreement with plan. All questions have been answered. Levaquin was started for the patient for sepsis protocol. At this time we will admit the patient patient agreed with plan. (Gabby Salvador) - Lab Data Lab Results 04/29/16 04/29/16 04/29/16 Range/Units 12:54 12:54 12:54 WBC 12.2 H (3.8-10.6) k/uL RBC 4.36 (3.80-5.40) m/uL Hgb 13.1 (11.4-16.0) gm/dL Hct 39.3 (34.0-46.0) % MCV 90.0 (80.0-100.0) fL MCH 29.9 (25.0-35.0) pg MCHC 33.3 (31.0-37.0) g/dL RDW 12.2 (11.5-15.5) % Plt Count 196 (150-450) k/uL Neutrophils % 70 % Lymphocytes % 19 % Monocytes % 5 % Eosinophils % 1 % Basophils % 1 % Neutrophils # 8.5 H (1.3-7.7) k/uL Lymphocytes # 2.3 (1.0-4.8) k/uL Monocytes # 0.6 (0-1.0) k/uL Eosinophils # 0.1 (0-0.7) k/uL Basophils # 0.2 (0-0.2) k/uL Sodium 140 (137-145) mmol/L Potassium 4.2 (3.5-5.1) mmol/L Chloride 105 (98-107) mmol/L Carbon Dioxide 24 (22-30) mmol/L Anion Gap 11 mmol/L BUN 10 (7-17) mg/dL Creatinine 0.60 (0.52-1.04) mg/dL Est GFR (MDRD) Af Amer >60 (>60 ml/min/1.73 sqM) Est GFR (MDRD) Non-Af >60 (>60 ml/min/1.73 sqM) Glucose 84 (74-99) mg/dL Plasma Lactic Acid Eliu 1.1 (0.7-2.0) mmol/L Calcium 9.7 (8.4-10.2) mg/dL Total Bilirubin 0.4 (0.2-1.3) mg/dL AST 15 (14-36) U/L ALT 27 (9-52) U/L Alkaline Phosphatase 58 (38-126) U/L Total Protein 7.2 (6.3-8.2) g/dL Albumin 4.5 (3.5-5.0) g/dL Disposition <Edmar Restrepo - Last Filed: 04/29/16 13:41> Time of Disposition: 13:44 <Gabby Salvador - Last Filed: 04/29/16 13:44> Clinical Impression: Facial cellulitis, Failure of outpatient treatment, Sepsis Disposition: ADMITTED IP TO THIS HOSP Condition: Stable Referrals: Jenelle Sherman MD [Primary Care Provider] - 1-2 days
[2016-04-29] MEDS ORDERED: VANCOMYCIN 2,000 MG in SODIUM CHLORIDE 0.9% 500 ML IVPB STA (12:43)
[2016-04-29 13:15] LABS: Basophils # (A) 0.2 k/uL (0-0.2); Basophils % (A) 1 %; CH 30.1; CHCM 33.6; Eosinophils # (A) 0.1 k/uL (0-0.7); Eosinophils % (A) 1 %; HCT 39.3 % (34.0-46.0); HGB 13.1 gm/dL (11.4-16.0); Luc # (Auto) 0.47; Luc % (Auto) 4; Lymphocytes # (A) 2.3 k/uL (1.0-4.8); Lymphocytes % (A) 19 %; MCH 29.9 pg (25.0-35.0); MCHC 33.3 g/dL (31.0-37.0); Mean Platelet Volume 9.5; Monocytes # (A) 0.6 k/uL (0-1.0); Monocytes % (A) 5 %; Neutrophils # (A) 8.5 k/uL (1.3-7.7); Neutrophils % (A) 70 %; RBC 4.36 m/uL (3.80-5.40); RDW 12.2 % (11.5-15.5); WBC 12.2 k/uL (3.8-10.6); WBC (Perox) 12.55
[2016-04-29 13:29] LABS: ALT 27 U/L (9-52); AST 15 U/L (14-36); Alkaline Phosphatase 58 U/L (38-126); Anion Gap 11 mmol/L; Blood Urea Nitrogen 10 mg/dL (7-17); Calcium 9.7 mg/dL (8.4-10.2); Carbon Dioxide 24 mmol/L (22-30); Chloride 105 mmol/L (98-107); Glucose 84 mg/dL (74-99); Non-African American GFR(MDRD) >60 (>60 ml/min/1.73 sqM); Potassium 4.2 mmol/L (3.5-5.1); Sodium 140 mmol/L (137-145); Total Bilirubin 0.4 mg/dL (0.2-1.3); Total Protein 7.2 g/dL (6.3-8.2)
[2016-04-29] MEDS ORDERED: AMPICILLIN-SULBACTAM 3 GM in SODIUM CHLORIDE 0.9% 100 ML IVPB STA (13:42)
[2016-04-29] MEDS ORDERED: LEVOFLOXACIN 750MG-D5W PMX 750 MG in DEXTROSE/WATER 1 150ML.BAG IVPB STA (13:42)
[2016-04-29] MEDS ORDERED: ACETAMINOPHEN TAB 325 MG TAB PO PRN (13:45)
[2016-04-29] MEDS ORDERED: NALOXONE 0.4 MG/ML 1 ML VIAL IV PRN (13:45)
[2016-04-29] MEDS ORDERED: ONDANSETRON 4 MG/2 ML VIAL IVP PRN (13:45)
[2016-04-29] MEDS ORDERED: ALBUTEROL NEBULIZED 2.5 MG/3 ML INHALATION PRN (13:47)
[2016-04-29] MEDS: SODIUM CHLORIDE 0.9% 1,000 ML IV SCH (16:12)
[2016-04-29 17:18] VITALS: BMI 42.8
[2016-04-29] MEDS: GABAPENTIN 100 MG CAP PO SCH ×2 (18:41→21:52)
[2016-04-29] MEDS: CYCLOBENZAPRINE 5 MG TAB PO SCH ×2 (18:41→21:52)
[2016-04-29] MEDS: KETOROLAC 30 MG/ML 1 ML VIAL IVP PRN (18:53)
[2016-04-29] MEDS ORDERED: traZODone HCL 100 MG TAB PO SCH (21:00)
[2016-04-29] MEDS ORDERED: OXcarbazepine 300 MG TAB PO SCH (21:00)
[2016-04-29] MEDS ORDERED: QUEtiapine 400 MG TAB PO SCH (21:00)
[2016-04-29] MEDS ORDERED: SERTRALINE 100 MG TAB PO SCH (21:00)
[2016-04-30] MEDS: SODIUM CHLORIDE 0.9% 1,000 ML IV SCH ×2 (01:14→15:24)
[2016-04-30] MEDS: KETOROLAC 30 MG/ML 1 ML VIAL IVP PRN ×4 (01:14→22:17)
[2016-04-30] MEDS ORDERED: VANCOMYCIN 2,000 MG in SODIUM CHLORIDE 0.9% 500 ML IVPB SCH ×2 (02:00→12:00)
[2016-04-30] MEDS ORDERED: LEVOTHYROXINE 50 MCG TAB PO SCH (06:30)
[2016-04-30] MEDS ORDERED: NICOTINE 14MG/24HR PATCH TRANSDERM SCH (09:00)
[2016-04-30] MEDS ORDERED: ALBUTEROL NEBULIZED 2.5 MG/3 ML INHALATION PRN (09:20)
[2016-04-30 09:46] LABS: Basophils # (A) 0.1 k/uL (0-0.2); Basophils % (A) 1 %; CH 29.5; CHCM 31.9; Eosinophils # (A) 0.2 k/uL (0-0.7); Eosinophils % (A) 2 %; HCT 34.8 % (34.0-46.0); HDW 2.26; HGB 11.2 gm/dL (11.4-16.0); Luc # (Auto) 0.35; Luc % (Auto) 4; Lymphocytes # (A) 2.2 k/uL (1.0-4.8); Lymphocytes % (A) 26 %; MCH 29.8 pg (25.0-35.0); MCHC 32.2 g/dL (31.0-37.0); MCV 92.8 fL (80.0-100.0); Mean Platelet Volume 9.8; Monocytes # (A) 0.5 k/uL (0-1.0); Monocytes % (A) 6 %; Neutrophils # (A) 5.1 k/uL (1.3-7.7); Neutrophils % (A) 61 %; RBC 3.75 m/uL (3.80-5.40); RDW 12.4 % (11.5-15.5); WBC 8.3 k/uL (3.8-10.6); WBC (Perox) 9.17
[2016-04-30 10:09] LABS: ALT 24 U/L (9-52); AST 14 U/L (14-36); Alkaline Phosphatase 41 U/L (38-126); Anion Gap 10 mmol/L; Blood Urea Nitrogen 10 mg/dL (7-17); Calcium 8.5 mg/dL (8.4-10.2); Carbon Dioxide 19 mmol/L (22-30); Chloride 111 mmol/L (98-107); Glucose 85 mg/dL (74-99); Non-African American GFR(MDRD) >60 (>60 ml/min/1.73 sqM); Potassium 4.4 mmol/L (3.5-5.1); Sodium 140 mmol/L (137-145); Total Bilirubin 0.4 mg/dL (0.2-1.3); Total Protein 6.1 g/dL (6.3-8.2)
[2016-04-30] MEDS: GABAPENTIN 100 MG CAP PO SCH ×3 (11:00→22:17)
[2016-04-30] MEDS: LEVOTHYROXINE 50 MCG TAB PO SCH (11:00)
[2016-04-30] MEDS: CYCLOBENZAPRINE 5 MG TAB PO SCH ×3 (11:00→22:18)
[2016-04-30] MEDS: NICOTINE 14MG/24HR PATCH TRANSDERM SCH (11:01)
[2016-04-30] MEDS: OXcarbazepine 300 MG TAB PO SCH ×2 (11:01→22:18)
--- NOTE | 2016-04-30 12:53 | P.HPIM ---
History of Present Illness H&P Date: 04/30/16 Chief Complaint: Swelling of the upper lip This is a 25-year-old female with past medical history noted below who is currently admitted to the hospital with swelling of the upper lip. Patient presented to the emergency room 3 or 4 times within the past 24 hours with concern about swelling of her lip. She was given antibiotic and was discharged home that she keeps coming back. She said that it all started with a '' campoverde'' that she picked and tried to clean it on her own at home and eventually the area around it was getting more red and swollen. She said that is painful. She noted some purulent drainage initially that since then there is no significant drainage. She was evaluated in the emergency room and was admitted to the hospital on IV antibiotic. Patient is known to have a history of MRSA skin infection in the past. There was no documented fevers. Blood cultures are pending. Review of Systems Review of system: 14 points review of systems were obtained and were negative except to what were mentioned in the HPI. Past Medical History Past Medical History: Asthma, Thyroid Disorder Additional Past Medical History / Comment(s): INSOMNIA; BODERLINE PERSONALITY DISORDER, back pain hx of syncope, MURMUR CHILD,BRONCHITIS,CARPAL TUNNEL, ARHTIRITS,UTI'S, MIGRAINES. History of Any Multi-Drug Resistant Organisms: MRSA Date of last positivie culture/infection: 05/2015 (per patient) MDRO Source:: RT INNER GROIN Past Surgical History: Adenoidectomy, Tonsillectomy Additional Past Surgical History / Comment(s): teeth pulled. SEVERAL AREAS ON BODY HAD i&D FROM AREAS WITH MRSA Past Anesthesia/Blood Transfusion Reactions: No Reported Reaction Additional Past Anesthesia/Blood Transfusion Reaction / Comment(s): CLAUSTERPHOBIA Past Psychological History: Bipolar, PTSD Smoking Status: Current every day smoker Past Alcohol Use History: Rare Past Drug Use History: Marijuana - Past Family History Mother Family Medical History: Myocardial Infarction ([place]) Additional Family Medical History / Comment(s): AT AGE 45 FROM [place] Father Additional Family Medical History / Comment(s): WHEN PT WAS 9 MONTHS OLD FROM A BRAIN ANUERYSM Medications and Allergies Home Medications Medication Instructions Recorded Confirmed Type Norgestimate-Ethinyl Estradiol 1 tab PO QAM 12/22/13 04/29/16 History [Mononessa 28 Tablet] Sertraline [Zoloft] 100 mg PO HS 10/24/14 04/29/16 History Levothyroxine Sodium [Synthroid] 50 mcg PO QAM 03/10/15 04/29/16 History traZODone HCL 100 mg PO HS 10/04/15 04/29/16 History Albuterol Inhaler [Ventolin Hfa 2 puff INHALATION RT-Q6H PRN 10/24/15 04/29/16 History Inhaler] OXcarbazepine 600 mg PO BID 10/24/15 04/29/16 History Cyclobenzaprine [Flexeril] 5 mg PO TID 02/20/16 04/29/16 History Gabapentin [Neurontin] 100 mg PO TID 04/28/16 04/29/16 History QUEtiapine [SEROquel] 400 mg PO HS 04/29/16 04/29/16 History Allergies Allergy/AdvReac Type Severity Reaction Status Date / Time ceftriaxone sodium Allergy Rash/Hives Verified 04/29/16 12:53 [From Rocephin] latex Allergy Rash/Hives Verified 04/29/16 12:53 bupropion HCl AdvReac Hallucinati Verified 04/29/16 12:53 [From Wellbutrin] ons Physical Exam Vitals: Vital Signs Temp Pulse Pulse Resp BP BP Pulse Ox 04/30/16 07:00 98.5 F 95 18 130/83 97 04/30/16 00:00 16 04/29/16 23:00 98.8 F 92 16 119/76 97 04/29/16 17:29 99 F 95 20 120/67 94 L 04/29/16 17:00 95 20 04/29/16 15:41 100.5 F H 95 18 126/61 96 Intake and Output 04/29/16 04/30/16 04/30/16 22:59 06:59 14:59 Intake Total 760 Balance 760 Intake: Intake, IV Titration 400 Amount Levofloxacin 750Mg-D5w 150 Pmx 750 mg In Dextrose/ Water 1 150ml.bag @ 100 mls/hr IVPB ONCE STA Rx#: [id number] Sodium Chloride 0.9% 1, 250 000 ml @ 100 mls/hr IV . Q10H MICHAEL Rx#:[id number] Oral 360 Other: # Voids 1 1 Weight 113.171 kg General: The patient is awake and alert, in no distress, she is morbidly obese HEENT: Noted significant swelling of the left side of the upper lip with tenderness and no evidence of abscess formation. Cardiovascular: Normal S1-S2, no S3-S4, no murmurs. Respiratory: Lungs clear to auscultation bilaterally with no wheezes rhonchi or rales. Gastrointestinal: Abdomen is soft, nontender, nondistended, with no organomegaly. . Musculoskeletal: Normal ROM, no tenderness, There is no pedal edema. Neurological: There are no obvious motor or sensory deficits. Speech is normal. Skin: Skin is warm and dry and no rashes or lesions are noted. Results CBC & Chem 7: 04/30/16 08:01 04/30/16 08:01 Labs: Abnormal Lab Results - Last 24 Hours (Table) 04/30/16 04/30/16 Range/Units 08:01 08:01 RBC 3.75 L (3.80-5.40) m/uL Hgb 11.2 L (11.4-16.0) gm/dL Chloride 111 H (98-107) mmol/L Carbon Dioxide 19 L (22-30) mmol/L Total Protein 6.1 L (6.3-8.2) g/dL Albumin 3.4 L (3.5-5.0) g/dL Thrombosis Risk Factor Assmnt - Choose All That Apply Any of the Below Risk Factors Present?: Yes Each Factor Represents 1 point: Obesity (BMI >25), Oral contraceptives or hormone replacement therapy Thrombosis Risk Factor Assessment Total Risk Factor Score: 2 Thrombosis Risk Factor Assessment Level: Low Risk Assessment and Plan Plan: 1. Cellulitis of the left upper lip with significant swelling and pain 2. Major depressive disorder 3. Morbid obesity 4. Tobacco abuse, counseled to quit. Discussed different strategies. Patient would like to use a nicotine patch 5. Underlying bipolar disorder Today, I reviewed her medication list and lab work results. Continue current antibiotic regimen. Consult infectious disease. Patient was counseled extensively to avoid manipulating any skin lesion as he would only help spreading the infection. She verbalized understanding.
[2016-04-30] MEDS: VANCOMYCIN 1,750 MG in SODIUM CHLORIDE 0.9% 250 ML IVPB SCH ×2 (15:16→22:21)
[2016-04-30] MEDS: NORGESTIMATE ETHINYL ESTRADIOL PO SCH (15:24)
[2016-04-30] MEDS: traZODone HCL 100 MG TAB PO SCH (22:18)
[2016-04-30] MEDS: SERTRALINE 100 MG TAB PO SCH (22:18)
[2016-04-30] MEDS: QUEtiapine 400 MG TAB PO SCH (22:18)
[2016-04-30] MEDS: HEPARIN SODIUM,PORCINE 5,000 UNIT/ML 1 ML VIAL SQ SCH (22:19)
[2016-05-01] MEDS: SODIUM CHLORIDE 0.9% 1,000 ML IV SCH ×3 (02:17→18:31)
[2016-05-01] MEDS: KETOROLAC 30 MG/ML 1 ML VIAL IVP PRN ×2 (05:10→21:57)
[2016-05-01] MEDS: VANCOMYCIN 1,750 MG in SODIUM CHLORIDE 0.9% 250 ML IVPB SCH ×3 (05:10→21:53)
[2016-05-01] MEDS: HEPARIN SODIUM,PORCINE 5,000 UNIT/ML 1 ML VIAL SQ SCH ×2 (10:04→21:54)
[2016-05-01] MEDS: OXcarbazepine 300 MG TAB PO SCH ×2 (10:05→21:58)
[2016-05-01] MEDS: CYCLOBENZAPRINE 5 MG TAB PO SCH ×3 (10:05→21:57)
[2016-05-01] MEDS: NORGESTIMATE ETHINYL ESTRADIOL PO SCH (10:05)
[2016-05-01] MEDS: LEVOTHYROXINE 50 MCG TAB PO SCH (10:05)
[2016-05-01] MEDS: NICOTINE 14MG/24HR PATCH TRANSDERM SCH (10:05)
[2016-05-01] MEDS: GABAPENTIN 100 MG CAP PO SCH ×3 (10:05→21:54)
[2016-05-01] MEDS ORDERED: VANCOMYCIN TROUGH DUE 1 EACH MISC MISCELLANE ONE (13:00)
--- NOTE | 2016-05-01 13:30 | P.PN ---
Subjective Patient is doing a lot better today. Swelling of the lip is improving significantly compared to yesterday. No fevers documented. Objective - Vital Signs Vital signs: Vital Signs Temp 98.2 F 05/01/16 07:00 Pulse 78 05/01/16 08:00 Resp 20 05/01/16 08:00 BP 126/71 05/01/16 07:00 Pulse Ox 95 05/01/16 07:00 Intake & Output 04/30/16 05/01/16 05/01/16 18:59 06:59 18:59 Intake Total 1530 Balance 1530 Weight 113.171 kg Intake: Intake, IV Titration 450 Amount Sodium Chloride 0.9% 1, 200 000 ml @ 100 mls/hr IV . Q10H MICHAEL Rx#:[id number] Vancomycin 1,750 mg In 250 Sodium Chloride 0.9% 250 ml @ 125 mls/hr IVPB Q8H MICHAEL Rx#:[id number] Oral 1080 Other: # Voids 3 2 - Exam General: The patient is awake and alert, in no distress Eye: there is normal conjunctiva bilaterally. Neck: The neck is supple, there is no JVD. Cardiovascular: Normal S1-S2, no S3-S4, no murmurs. Respiratory: Lungs clear to auscultation bilaterally Gastrointestinal: Abdomen is soft, nontender Musculoskeletal: There is no pedal edema. Neurological:. Speech is normal. Skin: Skin is warm and dry - Labs CBC & Chem 7: 04/30/16 08:01 04/30/16 08:01 Labs: Microbiology - Last 24 Hours (Table) 04/30/16 17:00 Wound Culture - Preliminary Lip 04/30/16 15:00 Gram Stain - Preliminary Lip Wound Culture - Preliminary Assessment and Plan Plan: 1. Cellulitis of the left upper lip with significant swelling and pain 2. Major depressive disorder 3. Morbid obesity 4. Tobacco abuse, counseled to quit. Discussed different strategies. Patient would like to use a nicotine patch 5. Underlying bipolar disorder Today, I reviewed her medication list and lab work results. Continue current antibiotic regimen. Patient has a history of recurrent MRSA skin infection. Awaiting cultures to finalize. Infectious disease following. Appreciate recommendations. Plan to discharge home tomorrow.
--- NOTE | 2016-05-01 13:48 | CONS ---
DATE OF CONSULTATION: 04/30/2016 REASON FOR CONSULTATION: Upper lip abscess and facial cellulitis. HISTORY OF PRESENT ILLNESS: Patient is a 25-year-old female with past medical history is significant for MRSA infection. Started to develop a pimple around the upper lip area on the left side. The patient's symptoms have been going on for about 3 to 4 days and has been previously seen at the [facility] ER x2. He initially was sent on Bactrim DS; however, the patient was unable to fill her prescriptions. Next time she was sent home on clindamycin. However, the patient presented within 24 hours with worsening swelling, redness and pain of the upper lip area with the redness and swelling spreading to the fascial area. The patient described the pain to be throbbing almost 9 to 10/10. The patient has been complaining of some chills but denies any high grade fever. Subsequently, the patient has been evaluated by the ER physician. She has been given Unasyn and Levaquin. Subsequently, Vancomycin was added and I was asked to see the patient for further recommendation regarding antibiotic therapy. Patient currently denies having any other lesions on her body at this point. REVIEW OF SYSTEMS: CONSTITUTIONAL: Positive for weakness and chills. EYES: No complaint. ENT: As per HPI. RESPIRATORY: No complaint. CARDIOVASCULAR: No complaint. GENITOURINARY: No complaint. GASTROINTESTINAL: No complaint. MUSCULOSKELETAL: No complaint. INTEGUMENTARY: No complaint. NEUROLOGIC: No complaint. PAST MEDICAL HISTORY: Asthma, hypothyroidism and MRSA skin and soft tissue infection previous episodes in the right inguinal area. PAST SURGICAL HISTORY: Tonsillectomy, adenoidectomy and I&D of the right groin abscess from MRSA. SOCIAL HISTORY: The patient is a current every day smoker. Did admit to marijuana use. FAMILY HISTORY: Mother with history of [place], at the age of 45. Father when the patient was 9 months old from a brain aneurysm. ALLERGIES: Rocephin, Latex, and bupropion; however, the patient tolerated Unasyn without any problem. Medications currently include the patient is on Tylenol, Ventolin, Flexeril, Neurontin, heparin, Toradol, Synthroid, vancomycin, Nicotine patch, Zofran, Trileptal, Seroquel, Zoloft and Desyrel. On examination, her blood pressure is 128/65 with a pulse of 83. Temperature 98.6, T-max 100.5. She is room air. General description is an elderly female lying in bed in no distress. No tachypnea or accessory muscle of respiration use. HEENT examination shows no pallor. No scleral icterus. Patient did have a swelling of the upper lip area, which was squeezed and slight amount of purulent material came out, which was cultured. NECK: Trachea central. There is no thyromegaly. LUNGS: Unlabored breathing. Clear to auscultation anteriorly. HEART: S1, S2. Regular rate and rhythm. ABDOMEN: Soft, no tenderness. EXTREMITIES: No edema of feet. SKIN: No rash or mass palpable. NEUROLOGICAL: The patient is awake, alert, oriented x3. Mood and affect normal. LABS: Hemoglobin 11.2, and patient's white count was 12.2 with a BUN of 10, creatinine 0.67. Blood culture obtained, currently pending. DIAGNOSTIC IMPRESSION AND PLAN: Patient admitted to hospital with sepsis and patient did have fever of 100.5 degrees Fahrenheit, did have an elevated white count of 11.2 meeting criteria for systemic inflammatory response syndrome with source is upper lip abscess, more likely secondary to methicillin-resistant Staphylococcus aureus as patient does have previous history of methicillin-resistant Staphylococcus aureus infection, failing outpatient clindamycin therapy. PLAN: 1. Vancomycin, pharmacy to dose with a target trough of 15. 2. We did obtain culture from the upper lip area. However, RN has been advised if the area opens up and drains further to get another culture also. 3. Warm compress to the area. 4. Will follow up on the clinical condition and cultures further adjust the medication if needed. Thank you for this consultation. We will follow this patient along with you. CRISTINA
[2016-05-01] MEDS: QUEtiapine 400 MG TAB PO SCH (21:54)
[2016-05-01] MEDS: traZODone HCL 100 MG TAB PO SCH (21:54)
[2016-05-01] MEDS: SERTRALINE 100 MG TAB PO SCH (21:54)
[2016-05-01 22:32] VITALS: RESP 16
[2016-05-02] MEDS: SODIUM CHLORIDE 0.9% 1,000 ML IV SCH ×2 (00:09→06:03)
[2016-05-02] MEDS: VANCOMYCIN 1,750 MG in SODIUM CHLORIDE 0.9% 250 ML IVPB SCH ×3 (06:00→13:48)
[2016-05-02 07:29] VITALS: BP 120/73; PULSE 78; TEMP 98.7
[2016-05-02] MEDS: NICOTINE 14MG/24HR PATCH TRANSDERM SCH (09:08)
[2016-05-02] MEDS: HEPARIN SODIUM,PORCINE 5,000 UNIT/ML 1 ML VIAL SQ SCH (09:08)
[2016-05-02] MEDS: GABAPENTIN 100 MG CAP PO SCH (09:09)
[2016-05-02] MEDS: NORGESTIMATE ETHINYL ESTRADIOL PO SCH (09:09)
[2016-05-02] MEDS: OXcarbazepine 300 MG TAB PO SCH (09:09)
[2016-05-02] MEDS: CYCLOBENZAPRINE 5 MG TAB PO SCH (09:09)
[2016-05-02] MEDS: LEVOTHYROXINE 50 MCG TAB PO SCH (09:09)
[2016-05-02] MEDS: KETOROLAC 30 MG/ML 1 ML VIAL IVP PRN (09:22)
--- NOTE | 2016-05-02 10:20 | PN ---
DATE OF SERVICE: 05/01/2016 REASON FOR FOLLOWUP: Upper lip abscess. INTERVAL HISTORY: The patient is afebrile, still complaining of pain in the upper lip area, but overall swelling has improved. The patient denies having any chest pain or shortness of breath. No abdominal pain or diarrhea. On examination, blood pressure is 139/75 with a pulse of 88, temperature 98.4. She is 98% on room air. General description is a young female lying in bed in no distress. HEENT: The upper lip swelling has slightly improved. No drainage. LUNGS: Unlabored breathing. Clear to auscultation anteriorly. HEART: S1, S2. Regular rate and rhythm. ABDOMEN: Soft, no tenderness. LABS: Blood cultures negative. The wound cultures with presumptive MRSA. DIAGNOSTIC IMPRESSION AND PLAN: Patient with upper lip abscess, likely secondary to methicillin-resistant Staphylococcus aureus. Patient will continue vancomycin. Pharmacy to dose. Awaiting further sensitivities to determine discharge antibiotics. advise warm compresses. Family present at bedside. Their questions have been answered. CRISTINA
--- NOTE | 2016-05-02 13:21 | P.DS ---
Providers Date of admission: 04/29/16 13:46 Expected date of discharge: 05/02/16 Attending physician: Jenelle Sherman Consults: 04/30/16 12:48 Consult Physician Routine Consulting Provider: Lynne Owens Consult Reason/Comments: Cellulitis of the face Do you want consulting provider notified?: Yes [facility]: 1. Cellulitis of the left upper lip with significant swelling and pain. Culture showing presumptive MRSA. We will follow up on sensitivity in the office. Patient will be discharged on Bactrim DS twice daily for 2 weeks per infectious disease recommendation. 2. Major depressive disorder 3. Morbid obesity 4. Tobacco abuse, counseled to quit. Discussed different strategies. Patient would like to use a nicotine patch 5. Underlying bipolar disorder Patient will be discharged home in a stable condition. Please refer to the electronic chart and my H&P for further details about this hospitalization. Patient Condition at Discharge: Stable Plan - Discharge Summary New Discharge Prescriptions: Nicotine 14Mg/24Hr Patch [Habitrol] 1 patch TRANSDERM DAILY@1000 #30 patch Sulfamethox-Tmp 800-160Mg [Bactrim DS 800-160 mg] 1 tab PO Q12HR #28 tab Discharge Medication List Norgestimate-Ethinyl Estradiol [Mononessa 28 Tablet] 1 tab PO QAM 12/22/13 [ History] Sertraline [Zoloft] 100 mg PO HS 10/24/14 [History] Levothyroxine Sodium [Synthroid] 50 mcg PO QAM 03/10/15 [History] traZODone HCL 100 mg PO HS 10/04/15 [History] Albuterol Inhaler [Ventolin Hfa Inhaler] 2 puff INHALATION RT-Q6H PRN 10/24/15 [ History] OXcarbazepine 600 mg PO BID 10/24/15 [History] Cyclobenzaprine [Flexeril] 5 mg PO TID 02/20/16 [History] Gabapentin [Neurontin] 100 mg PO TID 04/28/16 [History] Mupirocin 2% Oint [Bactroban 2% Oint] 1 applic TOPICAL TID #22 gm 04/28/16 [Rx] QUEtiapine [SEROquel] 400 mg PO HS 04/29/16 [History] Nicotine 14Mg/24Hr Patch [Habitrol] 1 patch TRANSDERM DAILY@1000 #30 patch 05/02 [Rx] Sulfamethox-Tmp 800-160Mg [Bactrim DS 800-160 mg] 1 tab PO Q12HR #28 tab [Rx] Follow up Appointment(s)/Referral(s): Jenelle Sherman MD [Primary Care Provider] - 1 Week Lynne Owens MD [STAFF PHYSICIAN] - 10 Days Discharge Disposition: HOME SELF-CARE
--- NOTE | 2016-05-02 16:43 | PN ---
DATE OF SERVICE: 05/02/2016 Reason for follow-up: Methicillin-resistant Staph aureus upper lip abscess. INTERVAL HISTORY: The patient is afebrile. Pain and swelling to the upper lip has improved. Swelling has slightly decreased. No drainage. The patient denies having any chest pain or shortness of breath or cough. She did have a small area of infection over the abdominal wall that has decreased in size and no drainage from it. On examination, blood pressure is 120/73 with a pulse of 78, temperature 98.7. She is 97% on room air. General description is an elderly female up in the room in no distress. HEENT EXAMINATION: The upper lip swelling currently redness has improved. LUNGS: Unlabored breathing. Clear to auscultation anteriorly. HEART: S1, S2. Regular rate and rhythm. ABDOMEN: Soft, abdominal, area of swelling and redness improved. No drainage. LABS: Vanco trough was 14, Blood culture negative. Wound cultures with presumptive MRSA. The sensitivities are pending. DIAGNOSTIC IMPRESSION AND PLAN: Patient with upper lip abscess likely Methicillin-resistant Staph aureus. We will continue the patient on vancomycin pharmacy to dose. We are waiting for the sensitivity to determine her discharge antibiotics. Continue supportive care. MTDD
--- NOTE | 2016-05-07 08:22 | CDI ---
In responding to this query, please exercise your independent professional judgment. The [facility] Coding Staff and Clinical Documentation Specialists appreciate your assistance in clarifying documentation, maintaining compliance with coding guidelines, accurately documenting patients condition and capturing severity of illness. The fact that a question is asked does not imply that any particular answer is desired or expected. Communication forms are a method of clarifying documentation and are not made part of the Legal Health Record. Thank you in advance for your clarification. Last Revision, December 2014 Erica Martinez [address] [facility] [place] [address] Documentation Clarification Form Date: 05/07/2016 8:12:00 AM From: Mabel Haddad, CCS, CCDS Admit Date: 04/29/2016 1:46:00 PM Patient Name: Kiera Fernandez Visit Number: [id number] Discharge Date: 05/02/2016 Dr. Jenelle Sherman: 25 yo fem, admitted via ER with failed outpatient treatment for cellulitis on her lip & the left side of her face with a history of MRSA infections. History/Risk Factors: MRSA skin infection, UTIs, Asthma Clinical Indicators: Low grade fever, no response to Motrin or antibiotics. T 100.0, P 109, R 22. WBC: 12.2, Neut 8.5 Blood cultures: neg @ 144 hrs. Would Cultures x2: MRSA Treatment: IV Vancomycin, IV Toradol, IV fluid bolus, IV Ampicillin, IV Levaquin Consult: Infectious Disease In your professional opinion, can you please clarify if these findings signify one of the following conditions, whether the condition is Present On Admission, and cause, if known? SIRS, without underlying infectious process Sepsis Severe Sepsis Unable to determine Other, please specify * Identify the (suspected) organism Please document in your progress notes and discharge summary in order to capture severity of illness and risk of mortality. Include clinical findings that support your diagnosis. FYI: Press F11 to launch patient chart. Place X here if this finding has no clinical significance, is not applicable or if you are not able to provide any additional documentation. Thank You. CRISTINA
== END 2016-05-02 15:40 | disposition home or self-care (01) | DRG 872 ==
LOC: EC 12:16 → 5MS5E 13:46
PROVIDERS: ADMIT Internal Medicine; ATTEND Internal Medicine
DX: A41.9 Sepsis, unspecified organism (principal); Z68.41 Body mass index [BMI] 40.0-44.9, adult; L03.211 Cellulitis of face; E66.01 Morbid (severe) obesity due to excess calories; K13.0 Diseases of lips; E03.9 Hypothyroidism, unspecified; F12.90 Cannabis use, unspecified, uncomplicated; F17.200 Nicotine dependence, unspecified, uncomplicated; F31.9 Bipolar disorder, unspecified; F43.10 Post-traumatic stress disorder, unspecified; F60.9 Personality disorder, unspecified; J45.909 Unspecified asthma, uncomplicated; Z79.899 Other long term (current) drug therapy; Z82.49 Family history of ischemic heart disease and other diseases of the circulatory system; Z86.14 Personal history of Methicillin resistant Staphylococcus aureus infection; B95.62 Methicillin resistant Staphylococcus aureus infection as the cause of diseases classified elsewhere; Z71.6 Tobacco abuse counseling; G47.00 Insomnia, unspecified; G56.00 Carpal tunnel syndrome, unspecified upper limb; Z88.6 Allergy status to analgesic agent; Z88.1 Allergy status to other antibiotic agents; Z91.040 Latex allergy status
CPT/HCPCS: 36415; 80053; 80202; 83605; 85025; 87040; 87070; 87077; 87186; 87205; 96365; 96366; 96375; 99284

== ENCOUNTER 2016-05-27 18:26 | Emergency (ER) | payer OTHER ==
[2016-05-27 19:03] VITALS: RESP 18
[2016-05-27] MEDS ORDERED: RX INFO: IV CONTRAST WAS GIVEN 1 EACH MISC MISCELLANE PRN (20:31)
[2016-05-27] MEDS ORDERED: SODIUM CHLORIDE 0.9% 1,000 ML IV ONE (20:32)
[2016-05-27] MEDS ORDERED: MORPHINE SULFATE 4 MG/ML SYRINGE IVP STA (20:32)
[2016-05-27 21:07] LABS: Aty Lym Flag Slight; CH 29.8; CHCM 33.3; HCT 36.5 % (34.0-46.0); HDW 2.22; HGB 12.2 gm/dL (11.4-16.0); MCHC 33.5 g/dL (31.0-37.0); MCV 89.6 fL (80.0-100.0); RBC 4.07 m/uL (3.80-5.40); RDW 12.8 % (11.5-15.5); WBC 7.4 k/uL (3.8-10.6); WBC (Perox) 7.31
[2016-05-27 21:14] LABS: Anion Gap 10 mmol/L; Blood Urea Nitrogen 10 mg/dL (7-17); Calcium 9.4 mg/dL (8.4-10.2); Carbon Dioxide 25 mmol/L (22-30); Chloride 105 mmol/L (98-107); Glucose 103 mg/dL (74-99); Non-African American GFR(MDRD) >60 (>60 ml/min/1.73 sqM); Potassium 4.1 mmol/L (3.5-5.1); Sodium 140 mmol/L (137-145)
--- NOTE | 2016-05-27 21:22 | CT ---
History right eye swelling Comparison none. TECHNIQUE: Multiple axial sections were obtained from the mid maxilla to the top of the frontal sinuses with int ravenous contrast. Contrast was Omnipaque 100 mL. FINDINGS: The globes are symmetric. There is no evidence of retro-orbital mass. There is mild soft tissue swell ing anterior to the right orbit. There is normal aeration of the visualized paranasal sinuses. There is no pathologic enhancement. CONCLUSION: There is mild preseptal soft tissue swelling on the right side consistent with cellulitis.
[2016-05-27 21:23] LABS: Add Differential Manual Differential
[2016-05-27 21:26] LABS: Manual Review Performed; Nucleated Red Blood Cells 0 /100 WBC (0-0); Total Cells Counted 100
--- NOTE | 2016-05-27 21:49 | ED ---
General Adult HPI - General Chief complaint: Headache Stated complaint: pain behind right eye, facial swelling Source: patient Mode of arrival: ambulatory Limitations: no limitations - History of Present Illness Initial comments: 25-year-old female with a past medical history of MRSA infections presenting for evaluation of right facial pain and headache. She states that recently she had a left eye infection and a left upper lip MRSA infection which have both since resolved. She started to develop erythema and swelling to the right periorbital soft tissue and states that she further has pain behind the eye. Eyes also become injected and she is concerned that she has a MRSA infection to the eye. She denies any pain with movement of the eye and states she is still able to open and close the eyelid. She denies fevers, chills, nausea, vomiting but does have headache that she states feels like it is behind the eye. - Related Data Home Medications Medication Instructions Recorded Confirmed Norgestimate-Ethinyl Estradiol 1 tab PO QAM 12/22/13 05/27/16 [Mononessa 28 Tablet] Sertraline [Zoloft] 100 mg PO HS 10/24/14 05/27/16 Levothyroxine Sodium [Synthroid] 50 mcg PO QAM 03/10/15 05/27/16 traZODone HCL 100 mg PO HS 10/04/15 05/27/16 Albuterol Inhaler [Ventolin Hfa 2 puff INHALATION RT-Q6H PRN 10/24/15 05/27/16 Inhaler] OXcarbazepine 600 mg PO DAILY 10/24/15 05/27/16 Cyclobenzaprine [Flexeril] 5 mg PO TID PRN 02/20/16 05/27/16 QUEtiapine [SEROquel] 400 mg PO HS 04/29/16 05/27/16 Erythromycin Ophth Oint [Romycin 1 applic RIGHT EYE TID 05/27/16 05/27/16 Ophth Oint] Gabapentin [Neurontin] 300 mg PO BID 05/27/16 05/27/16 Ibuprofen [Motrin] 800 mg PO Q8H PRN 05/27/16 05/27/16 Tobramycin/Dexamethasone [Tobradex 1 drop RIGHT EYE TID 05/27/16 05/27/16 Ophth Susp] diphenhydrAMINE HCL [Benadryl] 25 - 50 mg PO Q6H PRN 05/27/16 05/27/16 Previous Rx's Medication Instructions Recorded Cephalexin [Keflex] 500 mg PO Q12HR #20 cap 05/27/16 HYDROcodone/APAP 5-325MG [Carteret 1 - 2 tab PO Q6HR PRN #14 tab 05/27/16 5-325] Ibuprofen [Motrin] 800 mg PO Q8HR PRN #20 tab 05/27/16 Sulfamethox-Tmp 800-160Mg [Bactrim 1 tab PO Q12HR #20 tab 05/27/16 DS 800-160 mg] Allergies Allergy/AdvReac Type Severity Reaction Status Date / Time ceftriaxone sodium Allergy Rash/Hives Verified 05/27/16 19:27 [From Rocephin] latex Allergy Rash/Hives Verified 05/27/16 19:27 bupropion HCl AdvReac Hallucinati Verified 05/27/16 19:27 [From Wellbutrin] ons Review of Systems ROS Statement: Those systems with pertinent positive or pertinent negative responses have been documented in the HPI. ROS Other: All systems not noted in ROS Statement are negative. Constitutional: Denies: fever, chills, night sweats Eyes: Reports: eye pain, eye discharge, other (Scleral injection). Denies: vision change ENT: Reports: ear pain. Denies: throat pain, epistaxis Respiratory: Denies: cough, dyspnea Cardiovascular: Denies: chest pain, palpitations Endocrine: Denies: fatigue, polydipsia Gastrointestinal: Denies: abdominal pain, nausea, vomiting Genitourinary: Denies: urgency, dysuria Musculoskeletal: Denies: back pain, arthralgia Skin: Reports: change in color, other (Swelling and erythema to the right periorbital region). Denies: rash, lesions Neurological: Denies: headache, weakness, numbness, paresthesias, confusion Psychiatric: Denies: anxiety, depression Past Medical History Past Medical History: Asthma, Thyroid Disorder Additional Past Medical History / Comment(s): INSOMNIA; BODERLINE PERSONALITY DISORDER, back pain hx of syncope, MURMUR CHILD,BRONCHITIS,CARPAL TUNNEL, ARHTIRITS,UTI'S, MIGRAINES. History of Any Multi-Drug Resistant Organisms: MRSA Date of last positivie culture/infection: 04/30/16 MDRO Source:: LIP Past Surgical History: Adenoidectomy, Tonsillectomy Additional Past Surgical History / Comment(s): teeth pulled. SEVERAL AREAS ON BODY HAD i&D FROM AREAS WITH MRSA Past Anesthesia/Blood Transfusion Reactions: No Reported Reaction Additional Past Anesthesia/Blood Transfusion Reaction / Comment(s): CLAUSTERPHOBIA Past Psychological History: Bipolar, PTSD Smoking Status: Current every day smoker Past Alcohol Use History: Rare Past Drug Use History: Marijuana - Past Family History Mother Family Medical History: Myocardial Infarction ([place]) Additional Family Medical History / Comment(s): AT AGE 45 FROM [place] Father Additional Family Medical History / Comment(s): WHEN PT WAS 9 MONTHS OLD FROM A BRAIN ANUERYSM General Exam Limitations: no limitations General appearance: alert, in no apparent distress Head exam: Present: atraumatic, normocephalic, normal inspection Eye exam: Present: PERRL, EOMI, conjunctival injection. Absent: scleral icterus Pupils: Present: normal accommodation. Absent: irregular, unequal, miosis, mydriatic ENT exam: Present: normal exam, mucous membranes moist Neck exam: Present: normal inspection. Absent: tenderness, meningismus, lymphadenopathy Respiratory exam: Present: normal lung sounds bilaterally. Absent: respiratory distress, wheezes, rales, rhonchi, stridor Cardiovascular Exam: Present: regular rate, normal rhythm, normal heart sounds. Absent: systolic murmur, diastolic murmur, rubs, gallop, clicks GI/Abdominal exam: Present: soft, normal bowel sounds. Absent: distended, tenderness, guarding, rebound, rigid Rectal exam: Present: deferred Extremities exam: Present: normal inspection, full ROM, normal capillary refill. Absent: tenderness, pedal edema, joint swelling, calf tenderness Back exam: Present: normal inspection Neurological exam: Present: alert, oriented X3, CN II-XII intact Psychiatric exam: Present: normal affect, normal mood Skin exam: Present: warm, dry, intact, erythema, other (Swelling). Absent: rash Course Vital Signs 05/27/16 05/27/16 05/27/16 18:59 21:00 22:00 Temperature 99.7 F H 98.2 F Pulse Rate 99 66 61 Respiratory 18 18 18 Rate Blood Pressure 124/69 140/66 139/71 O2 Sat by Pulse 97 99 96 Oximetry Medical Decision Making - Medical Decision Making 25-year-old female with past medical history of MRSA infections presented for evaluation of right periorbital swelling erythema and headache. There is also conjunctival injection. On physical examination this is confirmed and she has pupils that are equal round and reactive to light and accommodation, no pain with extraocular movement which is equal bilaterally, and scleral injection is noted. Cranial nerves II through XII are intact without focal deficits. Patient is afebrile. Labs revealed no significant abnormalities and CT orbits shows no signs of orbital cellulitis but does confirmed periorbital cellulitis. The patient was informed she would be given antibiotics for periorbital cellulitis to include Bactrim and Keppra. She was further advised to follow-up with her primary care physician but to return to this facility if her symptoms should worsen or persist. The patient acknowledged an understanding of this information and agreed with this plan of care. - Lab Data Result diagrams: 05/27/16 20:49 05/27/16 20:49 Lab Results 05/27/16 05/27/16 05/27/16 Range/Units 20:49 20:49 20:49 WBC 7.4 (3.8-10.6) k/uL RBC 4.07 (3.80-5.40) m/uL Hgb 12.2 (11.4-16.0) gm/dL Hct 36.5 (34.0-46.0) % MCV 89.6 (80.0-100.0) fL MCH 30.0 (25.0-35.0) pg MCHC 33.5 (31.0-37.0) g/dL RDW 12.8 (11.5-15.5) % Plt Count 209 (150-450) k/uL Neutrophils % (Manual) 31.0 % Band Neutrophils % 1.0 % Lymphocytes % (Manual) 64.0 % Monocytes % (Manual) 2.0 % Eosinophils % (Manual) 2.0 % Neutrophils # (Manual) 2.4 (1.3-7.7) k/uL Lymphocytes # (Manual) 4.7 (1.0-4.8) k/uL Monocytes # (Manual) 0.1 (0-1.0) k/uL Eosinophils # (Manual) 0.1 (0-0.7) k/uL Nucleated RBCs 0 (0-0) /100 WBC Manual Slide Review Performed Sodium 140 (137-145) mmol/L Potassium 4.1 (3.5-5.1) mmol/L Chloride 105 (98-107) mmol/L Carbon Dioxide 25 (22-30) mmol/L Anion Gap 10 mmol/L BUN 10 (7-17) mg/dL Creatinine 0.63 (0.52-1.04) mg/dL Est GFR (MDRD) Af Amer >60 (>60 ml/min/1.73 sqM) Est GFR (MDRD) Non-Af >60 (>60 ml/min/1.73 sqM) Glucose 103 H (74-99) mg/dL Plasma Lactic Acid Eliu 1.4 (0.7-2.0) mmol/L Calcium 9.4 (8.4-10.2) mg/dL Disposition Clinical Impression: Preseptal cellulitis of right eye Disposition: HOME SELF-CARE Condition: Stable Instructions: Periorbital Cellulitis in Adults (ED), Orbital Cellulitis (ED) Additional Instructions: Please use medication as discussed. Please follow up with family doctor if symptoms have not improved over the next two days. Please return to the emergency room if your symptoms increase or worsen or for any other concerns. Prescriptions: Cephalexin [Keflex] 500 mg PO Q12HR #20 cap HYDROcodone/APAP 5-325MG [Carteret 5-325] 1 - 2 tab PO Q6HR PRN #14 tab PRN Reason: Analgesia Ibuprofen [Motrin] 800 mg PO Q8HR PRN #20 tab PRN Reason: Analgesia Sulfamethox-Tmp 800-160Mg [Bactrim DS 800-160 mg] 1 tab PO Q12HR #20 tab Referrals: Jenelle Sherman MD [Primary Care Provider] - 1-2 days Time of Disposition: 21:48
[2016-05-27 22:16] VITALS: BP 139/71; PULSE 61; TEMP 98.2
== END 2016-05-27 22:00 | disposition home or self-care (01) ==
LOC: EC 18:26
DX: L03.213 Periorbital cellulitis (principal); J45.909 Unspecified asthma, uncomplicated; E07.9 Disorder of thyroid, unspecified; F31.9 Bipolar disorder, unspecified; F17.200 Nicotine dependence, unspecified, uncomplicated; Z79.3 Long term (current) use of hormonal contraceptives; Z79.899 Other long term (current) drug therapy; Z91.040 Latex allergy status; Z88.1 Allergy status to other antibiotic agents; Z88.8 Allergy status to other drugs, medicaments and biological substances
CPT/HCPCS: 36415; 80048; 83605; 85025; 87040; 70481; 99284; 96374; 96361; J2270; Q9967

== ENCOUNTER → 2016-05-30 | Outpatient (CLI) | payer OTHER | END | disposition home or self-care (01) | LOC: LABWHC1 10:30 | PROVIDERS: ATTEND Nurse Practitioner | DX: F31.81 Bipolar II disorder (principal); F43.10 Post-traumatic stress disorder, unspecified | CPT/HCPCS: 36415; 80183 ==

== ENCOUNTER 2016-08-31 18:22 | Emergency (ER) | payer OTHER ==
[2016-08-31 18:42] VITALS: PULSE 113; RESP 18
[2016-08-31] MEDS ORDERED: ACETAMINOPHEN TAB 500 MG TAB PO STA (18:53)
[2016-08-31] MEDS ORDERED: ONDANSETRON ODT 4 MG TAB PO STA (18:53)
[2016-08-31] MEDS ORDERED: IBUPROFEN 600 MG TAB PO STA (18:53)
--- NOTE | 2016-08-31 18:56 | ED ---
General Adult HPI - General Chief complaint: Skin/Abscess/Foreign Body Stated complaint: RASH ALL OVER, NAUSEA, CHILLS Time Seen by Provider: 08/31/16 18:48 Source: patient, RN notes reviewed Mode of arrival: ambulatory Limitations: no limitations - History of Present Illness Initial comments: 25-year-old female presents emergency Department chief complaint of infection surrounding blisters to bilateral feet. Patient states these blisters started about a week ago and she noticed the redness to the area last few days. Patient states that today she noticed that she had a fever so she was concerned. Patient states that her feet are sore to touch. Patient states that she has felt nauseous with this. Patient states she has had a vomiting however. Patient denies any Motrin Tylenol for home. Patient does admit to history of MRSA. Patient states that she just feels there were no over. There were concerned due to the fever so they thought they should be seen. Patient denies any recent shortness of breath, chest pain, back pain, abdominal pain, nausea vomiting, numbness or tingling, dysuria or hematuria, constipation or diarrhea, headaches or visual changes, or any other current symptoms. - Related Data Home Medications Medication Instructions Recorded Confirmed Norgestimate-Ethinyl Estradiol 1 tab PO QAM 12/22/13 08/31/16 [Mononessa 28 Tablet] Sertraline [Zoloft] 100 mg PO HS 10/24/14 08/31/16 Levothyroxine Sodium [Synthroid] 50 mcg PO QAM 03/10/15 08/31/16 traZODone HCL 100 mg PO HS 10/04/15 08/31/16 Albuterol Inhaler [Ventolin Hfa 2 puff INHALATION RT-Q6H PRN 10/24/15 08/31/16 Inhaler] OXcarbazepine 600 mg PO DAILY 10/24/15 08/31/16 Gabapentin [Neurontin] 300 mg PO BID 05/27/16 08/31/16 Ibuprofen [Motrin] 800 mg PO Q8H PRN 05/27/16 08/31/16 QUEtiapine FUMARATE [SEROquel] 300 mg PO HS 08/31/16 08/31/16 Previous Rx's Medication Instructions Recorded Clindamycin [Cleocin] 450 mg PO Q8HR #90 capsule 08/31/16 Allergies Allergy/AdvReac Type Severity Reaction Status Date / Time ceftriaxone sodium Allergy Rash/Hives Verified 08/31/16 19:24 [From Rocephin] latex Allergy Rash/Hives Verified 08/31/16 19:24 bupropion HCl AdvReac Hallucinati Verified 08/31/16 19:24 [From Wellbutrin] ons Review of Systems ROS Statement: Those systems with pertinent positive or pertinent negative responses have been documented in the HPI. ROS Other: All systems not noted in ROS Statement are negative. Past Medical History Past Medical History: Asthma, Thyroid Disorder Additional Past Medical History / Comment(s): INSOMNIA; BODERLINE PERSONALITY DISORDER, back pain hx of syncope, MURMUR CHILD,BRONCHITIS,CARPAL TUNNEL, ARHTIRITS,UTI'S, MIGRAINES. History of Any Multi-Drug Resistant Organisms: MRSA Date of last positivie culture/infection: 04/30/16 MDRO Source:: LIP Past Surgical History: Adenoidectomy, Tonsillectomy Additional Past Surgical History / Comment(s): teeth pulled. SEVERAL AREAS ON BODY HAD i&D FROM AREAS WITH MRSA Past Anesthesia/Blood Transfusion Reactions: No Reported Reaction Additional Past Anesthesia/Blood Transfusion Reaction / Comment(s): CLAUSTERPHOBIA Past Psychological History: Bipolar, PTSD Smoking Status: Current every day smoker Past Alcohol Use History: Occasional Past Drug Use History: Marijuana - Past Family History Mother Family Medical History: Myocardial Infarction ([place]) Additional Family Medical History / Comment(s): AT AGE 45 FROM [place] Father Additional Family Medical History / Comment(s): WHEN PT WAS 9 MONTHS OLD FROM A BRAIN ANUERYSM General Exam Limitations: no limitations General appearance: alert, in no apparent distress Head exam: Present: atraumatic, normocephalic, normal inspection Eye exam: Present: normal appearance, PERRL, EOMI. Absent: scleral icterus, conjunctival injection, periorbital swelling ENT exam: Present: normal exam, mucous membranes moist Neck exam: Present: normal inspection. Absent: tenderness, meningismus Respiratory exam: Present: normal lung sounds bilaterally. Absent: respiratory distress, wheezes, rales, rhonchi, stridor Cardiovascular Exam: Present: regular rate, normal rhythm, normal heart sounds. Absent: systolic murmur, diastolic murmur, rubs, gallop, clicks GI/Abdominal exam: Present: soft, normal bowel sounds. Absent: distended, tenderness, guarding, rebound, rigid Neurological exam: Present: alert, oriented X3 Psychiatric exam: Present: normal affect, normal mood Skin exam: Present: warm, dry, other (Patient does appear to have cellulitis to the left toe as well as to the right toe. There is no streaking up the leg. No fluctuance noted.) Course Vital Signs 08/31/16 08/31/16 18:38 20:09 Temperature 102.5 F H 101.8 F H Pulse Rate 113 H 113 H Respiratory 18 18 Rate Blood Pressure 127/70 131/60 O2 Sat by Pulse 98 96 Oximetry Medical Decision Making - Medical Decision Making 25-year-old female appears to be a cellulitis to bilateral pinky toes at this time. At this time patient is feeling better with the Motrin and Tylenol. This and will start patient on clindamycin for home. We did discuss follow-up with her doctor return parameters all questions. She stated that she understood and she is tender in the plan. Patient will be discharged home at this time. Disposition Clinical Impression: Cellulitis of fifth toe of left foot, Cellulitis of fifth toe of right foot Disposition: HOME SELF-CARE Condition: Stable Instructions: Cellulitis (ED) Additional Instructions: Please use medication as discussed. Please follow up with family doctor if symptoms have not improved over the next two days. Please return to the emergency room if your symptoms increase or worsen or for any other concerns. Prescriptions: Clindamycin [Cleocin] 450 mg PO Q8HR #90 capsule Referrals: Jenelle Sherman MD [Primary Care Provider] - 1-2 days Time of Disposition: 20:18
[2016-08-31 20:10] VITALS: BP 131/60; TEMP 101.8
== END 2016-08-31 20:40 | disposition home or self-care (01) ==
LOC: EC 18:22
DX: L03.031 Cellulitis of right toe (principal); L03.032 Cellulitis of left toe; R11.2 Nausea with vomiting, unspecified; E07.9 Disorder of thyroid, unspecified; F31.9 Bipolar disorder, unspecified; F43.10 Post-traumatic stress disorder, unspecified; F17.200 Nicotine dependence, unspecified, uncomplicated; Z79.3 Long term (current) use of hormonal contraceptives; Z79.899 Other long term (current) drug therapy; Z88.1 Allergy status to other antibiotic agents; Z88.8 Allergy status to other drugs, medicaments and biological substances; Z86.14 Personal history of Methicillin resistant Staphylococcus aureus infection
CPT/HCPCS: 99283

== ENCOUNTER 2016-09-01 17:49 | Inpatient (IN) | payer OTHER ==
[2016-09-01] MEDS ORDERED: SODIUM CHLORIDE 0.9% 1,000 ML IV STA (18:30)
[2016-09-01] MEDS ORDERED: LEVOFLOXACIN 750MG-D5W PMX 750 MG in DEXTROSE/WATER 1 150ML.BAG IVPB STA (18:30)
[2016-09-01] MEDS ORDERED: IBUPROFEN 600 MG TAB PO STA (18:31)
[2016-09-01] MEDS ORDERED: IV VANCOMYCIN PER PHARMACY 1 EACH MISC MISCELLANE PRN (18:31)
[2016-09-01] MEDS ORDERED: ACETAMINOPHEN TAB 500 MG TAB PO STA (18:31)
--- NOTE | 2016-09-01 18:34 | ED ---
Extremity Problem HPI - General Chief complaint: Extremity Problem,Nontraumatic Stated complaint: ANKLE INFECTION RT SIDE Time Seen by Provider: 09/01/16 18:24 Source: patient, RN notes reviewed Mode of arrival: wheelchair Limitations: no limitations - History of Present Illness Initial comments: 25-year-old female presents to the emergency department with a chief complaint of fever and right ankle swelling. Patient states that she was seen here yesterday and they were concerned for cellulitis. Patient states she was sent home on clindamycin and she started with clindamycin this morning. Patient states that now her ankle is double in size which was not yesterday she's noticed some increased redness as well she has have an abrasion to the lateral aspect of the right side of the ankle. Patient states this Happened about 5 days ago. Patient states she's continued to have fevers as high as 102 so she was concerned. Patient states just seems to worsen it seems to be 10 times worse than it was yesterday. Patient states she's been having a lot of pain with putting weight onto the right ankle. Patient states she is not currently at this time.Patient denies any recent shortness of breath, chest pain, back pain, abdominal pain, nausea vomiting, numbness or tingling, dysuria or hematuria, constipation or diarrhea, headaches or visual changes, or any other current symptoms. - Related Data Home Medications Medication Instructions Recorded Confirmed Norgestimate-Ethinyl Estradiol 1 tab PO QAM 12/22/13 09/01/16 [Mononessa 28 Tablet] Sertraline [Zoloft] 100 mg PO HS 10/24/14 09/01/16 Levothyroxine Sodium [Synthroid] 50 mcg PO QAM 03/10/15 09/01/16 traZODone HCL 100 mg PO HS 10/04/15 09/01/16 Albuterol Inhaler [Ventolin Hfa 2 puff INHALATION RT-Q6H PRN 10/24/15 09/01/16 Inhaler] OXcarbazepine 600 mg PO DAILY 10/24/15 09/01/16 Gabapentin [Neurontin] 300 mg PO BID 05/27/16 09/01/16 Ibuprofen [Motrin] 800 mg PO Q8H PRN 05/27/16 09/01/16 QUEtiapine FUMARATE [SEROquel] 300 mg PO HS 08/31/16 09/01/16 Acetaminophen [Tylenol] 325 mg PO Q4H PRN 09/01/16 09/01/16 Ibuprofen [Motrin] 200 mg PO Q6HR PRN 09/01/16 09/01/16 Previous Rx's Medication Instructions Recorded Clindamycin [Cleocin] 450 mg PO Q8HR #90 capsule 08/31/16 Allergies Allergy/AdvReac Type Severity Reaction Status Date / Time ceftriaxone sodium Allergy Rash/Hives Verified 09/01/16 18:56 [From Rocephin] latex Allergy Rash/Hives Verified 09/01/16 18:56 bupropion HCl AdvReac Hallucinati Verified 09/01/16 18:56 [From Wellbutrin] ons Review of Systems ROS Statement: Those systems with pertinent positive or pertinent negative responses have been documented in the HPI. ROS Other: All systems not noted in ROS Statement are negative. Past Medical History Past Medical History: Asthma, Thyroid Disorder Additional Past Medical History / Comment(s): INSOMNIA; BODERLINE PERSONALITY DISORDER, back pain hx of syncope, MURMUR CHILD,BRONCHITIS,CARPAL TUNNEL, ARHTIRITS,UTI'S, MIGRAINES. History of Any Multi-Drug Resistant Organisms: MRSA Date of last positivie culture/infection: 04/30/16 MDRO Source:: LIP Past Surgical History: Adenoidectomy, Tonsillectomy Additional Past Surgical History / Comment(s): teeth pulled. SEVERAL AREAS ON BODY HAD i&D FROM AREAS WITH MRSA Past Anesthesia/Blood Transfusion Reactions: No Reported Reaction Additional Past Anesthesia/Blood Transfusion Reaction / Comment(s): CLAUSTERPHOBIA Past Psychological History: Bipolar, PTSD Smoking Status: Current every day smoker Past Alcohol Use History: Occasional Past Drug Use History: Marijuana - Past Family History Mother Family Medical History: Myocardial Infarction ([place]) Additional Family Medical History / Comment(s): AT AGE 45 FROM [place] Father Additional Family Medical History / Comment(s): WHEN PT WAS 9 MONTHS OLD FROM A BRAIN ANUERYSM General Exam - General Exam Comments Initial Comments: General: The patient is awake and alert, in no distress, and does not appear acutely ill. Neck: The neck is supple, there is no tenderness. Cardiovascular: There is a regular rate and rhythm. No murmur, rub or gallop is appreciated. Respiratory: Lungs are clear to auscultation, respirations are non-labored, breath sounds are equal. No wheezes, stridor, rales, or rhonchi. Musculoskeletal: Sensation intact with 2+ pulses. Pressure. Range of motion of right knee. Patient has pain with range of motion of the right ankle this appears swelling and an abrasion noted. Patient does appear to have erythematous tender to touch. Neurological: CN II-XII intact, There are no obvious motor or sensory deficits. Coordination appears grossly intact. Speech is normal. Skin: Skin is warm and dry and no rashes or lesions are noted. Psychiatric: Normal mood and affect. Limitations: no limitations Course Vital Signs 09/01/16 09/01/16 18:18 20:00 Temperature 102.7 F H Pulse Rate 102 H 94 Respiratory 16 18 Rate Blood Pressure 139/68 145/69 O2 Sat by Pulse 96 96 Oximetry Medical Decision Making - Medical Decision Making 25-year-old female presents for appears to be a right ankle cellulitis. This time she has been on outpatient antibiotics she continues to have high fever of 102 and she continues to have worsening redness and swelling to the right ankle. Patient does have a history of MRSA. This time Levaquin was started due to the fact that the patient does meet sepsis criteria as well as we will month ago after this. Patient is in agreement plan all questions have been answered. Laboratory does appear to be stable but due to the patient's continued fever and worsening swelling we will admit the patient at this time. - Lab Data Result diagrams: 09/01/16 19:00 09/01/16 19:00 Lab Results 09/01/16 09/01/16 09/01/16 Range/Units 19:00 19:00 19:00 WBC 7.8 (3.8-10.6) k/uL RBC 4.02 (3.80-5.40) m/uL Hgb 12.5 (11.4-16.0) gm/dL Hct 35.4 (34.0-46.0) % MCV 88.2 (80.0-100.0) fL MCH 31.0 (25.0-35.0) pg MCHC 35.1 (31.0-37.0) g/dL RDW 14.0 (11.5-15.5) % Plt Count 147 L (150-450) k/uL Neutrophils % 75 % Lymphocytes % 17 % Monocytes % 5 % Eosinophils % 0 % Basophils % 0 % Neutrophils # 5.8 (1.3-7.7) k/uL Lymphocytes # 1.3 (1.0-4.8) k/uL Monocytes # 0.4 (0-1.0) k/uL Eosinophils # 0.0 (0-0.7) k/uL Basophils # 0.0 (0-0.2) k/uL Sodium 136 L (137-145) mmol/L Potassium 3.7 (3.5-5.1) mmol/L Chloride 106 (98-107) mmol/L Carbon Dioxide 19 L (22-30) mmol/L Anion Gap 11 mmol/L BUN 7 (7-17) mg/dL Creatinine 0.70 (0.52-1.04) mg/dL Est GFR (MDRD) Af Amer >60 (>60 ml/min/1.73 sqM) Est GFR (MDRD) Non-Af >60 (>60 ml/min/1.73 sqM) Glucose 98 (74-99) mg/dL Plasma Lactic Acid Eliu 1.1 (0.7-2.0) mmol/L Calcium 8.7 (8.4-10.2) mg/dL Total Bilirubin 0.3 (0.2-1.3) mg/dL AST 33 (14-36) U/L ALT 48 (9-52) U/L Alkaline Phosphatase 48 (38-126) U/L Total Protein 6.3 (6.3-8.2) g/dL Albumin 3.9 (3.5-5.0) g/dL Disposition Clinical Impression: Failure of outpatient treatment, Sepsis, Cellulitis of right ankle Disposition: ADMITTED IP TO THIS [facility] Condition: Stable Referrals: Jenelle Sherman MD [Primary Care Provider] - 1-2 days Time of Disposition: 19:58 Decision Date: 09/01/16 Decision Time: 19:58
[2016-09-01 19:21] LABS: Basophils % (A) 0 %; CH 30.4; CHCM 34.6; Eosinophils % (A) 0 %; HCT 35.4 % (34.0-46.0); HDW 2.31; HGB 12.5 gm/dL (11.4-16.0); Luc # (Auto) 0.22; Luc % (Auto) 3; Lymphocytes # (A) 1.3 k/uL (1.0-4.8); Lymphocytes % (A) 17 %; MCHC 35.1 g/dL (31.0-37.0); MCV 88.2 fL (80.0-100.0); Mean Platelet Volume 9.5; Monocytes # (A) 0.4 k/uL (0-1.0); Monocytes % (A) 5 %; Neutrophils # (A) 5.8 k/uL (1.3-7.7); Neutrophils % (A) 75 %; RBC 4.02 m/uL (3.80-5.40); WBC 7.8 k/uL (3.8-10.6)
[2016-09-01 19:32] LABS: ALT 48 U/L (9-52); AST 33 U/L (14-36); Alkaline Phosphatase 48 U/L (38-126); Anion Gap 11 mmol/L; Blood Urea Nitrogen 7 mg/dL (7-17); Calcium 8.7 mg/dL (8.4-10.2); Carbon Dioxide 19 mmol/L (22-30); Chloride 106 mmol/L (98-107); Glucose 98 mg/dL (74-99); Non-African American GFR(MDRD) >60 (>60 ml/min/1.73 sqM); Potassium 3.7 mmol/L (3.5-5.1); Sodium 136 mmol/L (137-145); Total Bilirubin 0.3 mg/dL (0.2-1.3); Total Protein 6.3 g/dL (6.3-8.2)
[2016-09-01] MEDS ORDERED: VANCOMYCIN 2,250 MG in SODIUM CHLORIDE 0.9% 500 ML IVPB STA (19:42)
--- NOTE | 2016-09-01 19:56 | XR ---
EXAMINATION TYPE: XR ankle complete RT DATE OF EXAM: 09/01/2016 COMPARISON: NONE HISTORY: Ankle pain TECHNIQUE: 3 views FINDINGS: There is soft tissue swelling over the lateral malleolus. I see no fracture nor dislocation . There is soft tissue swelling in the forefoot. IMPRESSION: Soft tissue swelling. No fracture. No sign of osteomyelitis.
[2016-09-01] MEDS ORDERED: NALOXONE 0.4 MG/ML 1 ML VIAL IV PRN (20:00)
[2016-09-01] MEDS ORDERED: ALBUTEROL NEBULIZED 2.5 MG/3 ML INHALATION PRN (20:01)
[2016-09-01] MEDS: SODIUM CHLORIDE 0.9% 1,000 ML IV SCH (22:16)
[2016-09-01 23:16] VITALS: BMI 50.7
[2016-09-02] MEDS: traZODone HCL 100 MG TAB PO SCH ×2 (00:01→21:11)
[2016-09-02] MEDS: ONDANSETRON 4 MG/2 ML VIAL IVP PRN (00:01)
[2016-09-02] MEDS: HYDROcodone/APAP 5-325MG 1 EACH TAB PO PRN ×3 (00:01→21:10)
[2016-09-02] MEDS: LEVOTHYROXINE 50 MCG TAB PO SCH (05:20)
[2016-09-02] MEDS: SODIUM CHLORIDE 0.9% 1,000 ML IV SCH ×3 (05:23→17:23)
[2016-09-02] MEDS: IBUPROFEN 400 MG TAB PO PRN ×3 (07:38→21:10)
[2016-09-02] MEDS: NORGESTIMATE-ETHINYL ESTRADIOL 1 EACH TABLET PO SCH (07:43)
[2016-09-02] MEDS: GABAPENTIN 300 MG CAP PO SCH ×3 (07:44→21:10)
[2016-09-02] MEDS: OXcarbazepine 300 MG TAB PO SCH (07:44)
[2016-09-02 07:47] LABS: Basophils % (A) 0 %; CH 29.9; CHCM 33.6; Eosinophils % (A) 0 %; HCT 31.6 % (34.0-46.0); HDW 2.35; HGB 10.9 gm/dL (11.4-16.0); Luc # (Auto) 0.15; Luc % (Auto) 2; Lymphocytes # (A) 0.8 k/uL (1.0-4.8); Lymphocytes % (A) 10 %; MCH 30.8 pg (25.0-35.0); MCHC 34.4 g/dL (31.0-37.0); MCV 89.5 fL (80.0-100.0); Mean Platelet Volume 9.8; Monocytes # (A) 0.3 k/uL (0-1.0); Monocytes % (A) 4 %; Neutrophils % (A) 84 %; RBC 3.53 m/uL (3.80-5.40); RDW 13.5 % (11.5-15.5); WBC 8.3 k/uL (3.8-10.6); WBC (Perox) 8.79
[2016-09-02 07:59] LABS: ALT 38 U/L (9-52); AST 23 U/L (14-36); Alkaline Phosphatase 40 U/L (38-126); Anion Gap 8 mmol/L; Blood Urea Nitrogen 5 mg/dL (7-17); Carbon Dioxide 19 mmol/L (22-30); Chloride 109 mmol/L (98-107); Glucose 126 mg/dL (74-99); Non-African American GFR(MDRD) >60 (>60 ml/min/1.73 sqM); Potassium 3.6 mmol/L (3.5-5.1); Sodium 136 mmol/L (137-145); Total Bilirubin 0.1 mg/dL (0.2-1.3); Total Protein 5.2 g/dL (6.3-8.2)
[2016-09-02] MEDS: ACETAMINOPHEN TAB 325 MG TAB PO PRN ×2 (09:02→15:35)
[2016-09-02] MEDS: VANCOMYCIN 2,000 MG in SODIUM CHLORIDE 0.9% 500 ML IVPB SCH ×2 (10:43→21:11)
--- NOTE | 2016-09-02 15:46 | P.HPIM ---
History of Present Illness H&P Date: 09/02/16 Chief Complaint: Redness and swelling of the right ankle This is a 25-year-old female with past medical history noted below who presented to the emergency room with worsening redness and swelling of the right ankle. Her symptoms started couple of days ago and she presented originally to the emergency room yesterday and was evaluated and discharged on clindamycin. Few hours later patient return to the emergency room claiming that her ankle is double in size and is very painful. She was having high- grade fevers with T-max of 102.0. She was evaluated and C given 1 dose of IV Levaquin and IV vancomycin. She is currently maintained on IV vancomycin. Blood cultures pending. Patient remained hemodynamically stable. She said that her symptoms started all of a sudden overnight. Last week she was swimming in the river and noted a small scab on her right ankle that was not bothersome to her. Few days later she noted the swelling acutely overnight. She is known to have history of MRSA skin infection in the past. Review of Systems Review of system: 14 points review of systems were obtained and were negative except to what were mentioned in the HPI. Past Medical History Past Medical History: Asthma, Thyroid Disorder Additional Past Medical History / Comment(s): INSOMNIA; BODERLINE PERSONALITY DISORDER, back pain hx of syncope, MURMUR CHILD,BRONCHITIS,CARPAL TUNNEL, ARHTIRITS,UTI'S, MIGRAINES. History of Any Multi-Drug Resistant Organisms: MRSA Date of last positivie culture/infection: 04/30/16 MDRO Source:: LIP Past Surgical History: Adenoidectomy, Tonsillectomy Additional Past Surgical History / Comment(s): teeth pulled. SEVERAL AREAS ON BODY HAD i&D FROM AREAS WITH MRSA Past Anesthesia/Blood Transfusion Reactions: No Reported Reaction Additional Past Anesthesia/Blood Transfusion Reaction / Comment(s): CLAUSTERPHOBIA Past Psychological History: Bipolar, PTSD Smoking Status: Current every day smoker Past Alcohol Use History: Occasional Past Drug Use History: Marijuana - Past Family History Mother Family Medical History: Myocardial Infarction ([place]) Additional Family Medical History / Comment(s): AT AGE 45 FROM [place] Father Additional Family Medical History / Comment(s): WHEN PT WAS 9 MONTHS OLD FROM A BRAIN ANUERYSM Medications and Allergies Home Medications Medication Instructions Recorded Confirmed Type Norgestimate-Ethinyl Estradiol 1 tab PO QAM 12/22/13 09/01/16 History [Mononessa 28 Tablet] Sertraline [Zoloft] 100 mg PO HS 10/24/14 09/01/16 History Levothyroxine Sodium [Synthroid] 50 mcg PO QAM 03/10/15 09/01/16 History traZODone HCL 100 mg PO HS 10/04/15 09/01/16 History Albuterol Inhaler [Ventolin Hfa 2 puff INHALATION RT-Q6H PRN 10/24/15 09/01/16 History Inhaler] OXcarbazepine 600 mg PO DAILY 10/24/15 09/01/16 History Gabapentin [Neurontin] 300 mg PO BID 05/27/16 09/01/16 History Ibuprofen [Motrin] 800 mg PO Q8H PRN 05/27/16 09/01/16 History QUEtiapine FUMARATE [SEROquel] 300 mg PO HS 08/31/16 09/01/16 History Acetaminophen [Tylenol] 325 mg PO Q4H PRN 09/01/16 09/01/16 History Ibuprofen [Motrin] 200 mg PO Q6HR PRN 09/01/16 09/01/16 History Allergies Allergy/AdvReac Type Severity Reaction Status Date / Time ceftriaxone sodium Allergy Rash/Hives Verified 09/01/16 18:56 [From Rocephin] latex Allergy Rash/Hives Verified 09/01/16 18:56 bupropion HCl AdvReac Hallucinati Verified 09/01/16 18:56 [From Wellbutrin] ons Physical Exam Vitals: Vital Signs Temp Pulse Pulse Pulse Resp BP BP 09/02/16 15:00 99.4 F 97 20 107/63 09/02/16 08:50 101 F H 09/02/16 08:00 78 09/02/16 07:00 102.4 F H 113 H 20 112/56 09/01/16 23:13 98.3 F 89 18 114/68 09/01/16 22:54 98.7 F 78 16 09/01/16 22:21 99.7 F H 92 18 145/67 09/01/16 20:00 94 18 145/69 09/01/16 18:18 102.7 F H 102 H 16 139/68 BP Pulse Ox 09/02/16 15:00 96 09/02/16 08:50 09/02/16 08:00 09/02/16 07:00 96 09/01/16 23:13 98 09/01/16 22:54 99/66 92 L 09/01/16 22:21 98 09/01/16 20:00 96 09/01/16 18:18 96 Intake and Output 09/02/16 09/02/16 09/02/16 06:59 14:59 22:59 Intake Total 300 1100 Balance 300 1100 Intake: IV 1100 Sodium Chloride 0.9% 1, 600 000 ml @ 120 mls/hr IV . Q8H20M MICHAEL Rx#:[id number] Vancomycin 2,000 mg In 500 Sodium Chloride 0.9% 500 ml @ 167 mls/hr IVPB Q12H MICHAEL Rx#:[id number] Oral 300 Other: Voiding Method Toilet General: The patient is awake and alert, in no distress Eye: there is normal conjunctiva bilaterally. Neck: The neck is supple, there is no JVD. Cardiovascular: Normal S1-S2, no S3-S4, no murmurs. Respiratory: Lungs clear to auscultation bilaterally Gastrointestinal: Abdomen is soft, nontender Musculoskeletal: Right foot and ankle appeared significantly swollen and very tender to touch. There is warmth to touch as well. There is mild redness extending above the ankle. It's hard to assess for possible abscess formation given significant tenderness and pain Neurological:. Speech is normal. Skin: Skin is warm and dry Results CBC & Chem 7: 09/02/16 07:19 09/02/16 07:19 Labs: Abnormal Lab Results - Last 24 Hours (Table) 09/01/16 09/01/16 09/02/16 Range/Units 19:00 19:00 07:19 RBC 3.53 L (3.80-5.40) m/uL Hgb 10.9 L (11.4-16.0) gm/dL Hct 31.6 L (34.0-46.0) % Plt Count 147 L 112 L (150-450) k/uL Lymphocytes # 0.8 L (1.0-4.8) k/uL Sodium 136 L (137-145) mmol/L Chloride (98-107) mmol/L Carbon Dioxide 19 L (22-30) mmol/L BUN (7-17) mg/dL Glucose (74-99) mg/dL Calcium (8.4-10.2) mg/dL Total Bilirubin (0.2-1.3) mg/dL Total Protein (6.3-8.2) g/dL Albumin (3.5-5.0) g/dL 09/02/16 Range/Units 07:19 RBC (3.80-5.40) m/uL Hgb (11.4-16.0) gm/dL Hct (34.0-46.0) % Plt Count (150-450) k/uL Lymphocytes # (1.0-4.8) k/uL Sodium 136 L (137-145) mmol/L Chloride 109 H (98-107) mmol/L Carbon Dioxide 19 L (22-30) mmol/L BUN 5 L (7-17) mg/dL Glucose 126 H (74-99) mg/dL Calcium 8.0 L (8.4-10.2) mg/dL Total Bilirubin 0.1 L (0.2-1.3) mg/dL Total Protein 5.2 L (6.3-8.2) g/dL Albumin 2.9 L (3.5-5.0) g/dL Assessment and Plan Plan: 1. Right ankle cellulitis: With no evidence of osteomyelitis on the x-ray. Hard assess for abscess formation. Soft tissue swelling noted on x-ray. Currently on IV vancomycin. Patient has a history of MRSA skin infection. I will consult infectious disease for further evaluation. If not improving may consider orthopedic consultation. 2. Sepsis on presentation secondary to above 3. Major depressive disorder 4. Tobacco abuse 5. Underlying bipolar disorder Today, I reviewed her medication list" resolved. Continue current regimen. Awaiting blood culture. We will continue to follow closely. Repeat In the morning.
[2016-09-02] MEDS: AMPICILLIN-SULBACTAM 3 GM in SODIUM CHLORIDE 0.9% 100 ML IVPB SCH (18:27)
[2016-09-02] MEDS: QUEtiapine 100 MG TAB PO SCH ×2 (21:11)
[2016-09-02] MEDS: SERTRALINE 100 MG TAB PO SCH ×2 (21:11)
[2016-09-02] MEDS: HEPARIN SODIUM,PORCINE 5,000 UNIT/ML 1 ML VIAL SQ SCH (21:19)
[2016-09-03] MEDS: AMPICILLIN-SULBACTAM 3 GM in SODIUM CHLORIDE 0.9% 100 ML IVPB SCH ×4 (00:12→19:38)
[2016-09-03] MEDS: IBUPROFEN 400 MG TAB PO PRN ×2 (04:53→12:57)
[2016-09-03] MEDS: HYDROcodone/APAP 5-325MG 1 EACH TAB PO PRN ×2 (04:53→09:33)
[2016-09-03] MEDS: SODIUM CHLORIDE 0.9% 1,000 ML IV SCH ×2 (06:04→17:57)
[2016-09-03] MEDS: LEVOTHYROXINE 50 MCG TAB PO SCH (06:05)
[2016-09-03] MEDS ORDERED: VANCOMYCIN TROUGH DUE 1 EACH MISC MISCELLANE ONE (09:00)
[2016-09-03 09:08] LABS: Basophils % (A) 0 %; CH 29.2; CHCM 33.3; Eosinophils # (A) 0.1 k/uL (0-0.7); Eosinophils % (A) 2 %; HCT 30.9 % (34.0-46.0); HDW 2.55; HGB 10.4 gm/dL (11.4-16.0); Luc # (Auto) 0.22; Luc % (Auto) 4; Lymphocytes % (A) 16 %; MCH 29.8 pg (25.0-35.0); MCHC 33.8 g/dL (31.0-37.0); MCV 88.1 fL (80.0-100.0); Mean Platelet Volume 9.1; Monocytes # (A) 0.3 k/uL (0-1.0); Monocytes % (A) 4 %; Neutrophils # (A) 4.7 k/uL (1.3-7.7); Neutrophils % (A) 75 %; RBC 3.51 m/uL (3.80-5.40); WBC 6.4 k/uL (3.8-10.6); WBC (Perox) 6.91
[2016-09-03 09:21] LABS: Anion Gap 6 mmol/L; Blood Urea Nitrogen 4 mg/dL (7-17); Calcium 7.7 mg/dL (8.4-10.2); Carbon Dioxide 21 mmol/L (22-30); Chloride 112 mmol/L (98-107); Glucose 77 mg/dL (74-99); Non-African American GFR(MDRD) >60 (>60 ml/min/1.73 sqM); Potassium 3.3 mmol/L (3.5-5.1); Sodium 139 mmol/L (137-145)
[2016-09-03] MEDS: NORGESTIMATE-ETHINYL ESTRADIOL 1 EACH TABLET PO SCH (09:32)
[2016-09-03] MEDS: HEPARIN SODIUM,PORCINE 5,000 UNIT/ML 1 ML VIAL SQ SCH ×2 (09:32→21:56)
[2016-09-03] MEDS: VANCOMYCIN 2,000 MG in SODIUM CHLORIDE 0.9% 500 ML IVPB SCH ×2 (09:32→15:25)
[2016-09-03] MEDS: OXcarbazepine 300 MG TAB PO SCH (09:32)
[2016-09-03] MEDS: GABAPENTIN 300 MG CAP PO SCH ×2 (09:32→21:56)
--- NOTE | 2016-09-03 10:51 | CONS ---
DATE OF SERVICE: 09/02/2016 Reason for consultation is right ankle and leg cellulitis. HISTORY OF PRESENT ILLNESS: The patient is a 25-year-old female who apparently he was swimming in the river last week and the patient says she may bumped her ankle area with a stone. Patient has a small area of ulceration. Over the next few days, her whole ankle and leg started getting swollen and red and painful. It started throbbing almost 10/10. For the same reason, the patient was evaluated at [facility] yesterday where the patient was treated with diagnosis of cellulitis and discharged home on p.o. clindamycin. The patient noticed her ankle doubled in size in less than 24 hours with increased redness for which the patient came back to the [facility]. The patient apparently did have slight blood stain and drainage from the lacerated area. She did have x-rays of the ankle that showed some soft tissue swelling, but no fracture, no signs of osteomyelitis. Patient had been started on vancomycin; however, the patient did have persistent fever. She did have fever of 101 on arrival, another fever of 102.4 this morning. I was asked to the see the patient for further recommendation regarding antibiotic therapy as the patient did have a history of an MRSA skin and soft tissue infection. REVIEW OF SYSTEM: CONSTITUTIONAL: Positive for weakness along with a fever. EYES: No complaint. ENT: No complaint. RESPIRATORY: No complaint. CARDIOVASCULAR: No complaint. GENITOURINARY: No complaint. GASTROINTESTINAL: No complaint. MUSCULOSKELETAL: As per HPI. INTEGUMENT: As per HPI. PSYCHOLOGICAL: No complaint. ENDOCRINE: No complaint. NEUROLOGIC: No complaint. PAST MEDICAL HISTORY: Significant for hypothyroidism, asthma, insomnia, borderline personality disorder, ( ) syndrome and history of MRSA infection. PAST SURGICAL HISTORY: Adenoidectomy and tonsillectomy. SOCIAL HISTORY: Current every day smoker and occasional alcohol intake and did have history of marijuana use. FAMILY HISTORY: Mother had history of CT, at of [address] Father from a brain aneurysm. Allergy to CEFTRIAXONE with hives; however the patient she has taken amoxicillin , Augmentin afterwards without any problems. Also allergic to LATEX AND BUPROPION. Medications include patient is currently on Tylenol, [place], Ventolin, Neurontin , heparin, Motrin, Synthroid, vancomycin pharmacy to dose, Zofran, Trileptal, Seroquel, Zoloft, Desyrel. On examination, blood pressure is 107/63 with a pulse of 97, respirations 14, temperature 102.4. She is 96% on room air. General description is a middle-aged female, lying in bed, in no distress. No tachypnea or accessory muscle for respiration use. HEENT examination shows pallor, no scleral icterus, oral mucosa is dry. NECK: Trachea central, no thyromegaly. LUNGS: Unlabored breathing, clear to auscultation. No wheeze or crackle. HEART: S1, S2, regular rate and rhythm. ABDOMEN: Soft, no tenderness, no guarding, no rigidity. EXTREMITIES: No edema of the feet. Examination of the right ankle and foot area appears to be swollen and red, tender to touch. No fluctuation, induration and drainage noticed. Neurologically, patient is awake, alert and oriented x3. Mood and affect normal. LABS: Hemoglobin is 10.9, white count of 8.3 with a BUN of 5, creatinine 0.60. Blood cultures obtained which are currently pending. DIAGNOSTIC IMPRESSION AND PLAN: 1. Patient with sepsis in a patient who did have acute swelling and redness of the right ankle and leg area, started after the patient sustained abrasion to the ankle area while swimming in the river. The patient has a history of MRSA infection. Will need to go for the MRSA to be the likely pathogen; however, underlying gram-negative of the ( ) origin could not be entirely excluded. 2. Patient did have a history of ROCEPHIN allergy; however, has taken amoxicillin afterwards. PLAN: 1. Will continue the patient on vancomycin, pharmacy to dose. 2. Add Unasyn 3 gm q.6 hourly. 3. Marked area of the redness. 4. Will follow up on the clinical condition and culture to further adjust medication if needed. Thank you for this consultation. Will follow this patient along with you. CRISTINA
[2016-09-03] MEDS ORDERED: Potassium Replacement Protocol 1 EACH MISC MISCELLANE PRN (12:26)
[2016-09-03] MEDS: POTASSIUM CHLORIDE ER 20 MEQ TAB.ER PO SCH ×2 (12:58→14:59)
--- NOTE | 2016-09-03 13:17 | P.PN ---
Subjective Patient is complaining that her right ankle is not improving since admission. Actually the redness is extending beyond the marker. She started having significant tenderness and swelling. Exam is very limited secondary to pain. Objective - Vital Signs Vital signs: Vital Signs Temp 99.1 F 09/03/16 07:00 Pulse 98 09/03/16 07:00 Resp 18 09/03/16 07:00 BP 111/54 09/03/16 07:00 Pulse Ox 96 09/03/16 07:00 Intake & Output 09/02/16 09/03/16 09/03/16 18:59 06:59 18:59 Intake Total 1100 2020 Balance 1100 2020 Weight 134 kg Intake: IV 1100 1100 Sodium Chloride 0.9% 1, 600 600 000 ml @ 120 mls/hr IV . Q8H20M MICHAEL Rx#:[id number] Vancomycin 2,000 mg In 500 500 Sodium Chloride 0.9% 500 ml @ 167 mls/hr IVPB Q12H MICHAEL Rx#:[id number] Intake, IV Titration 200 Amount Ampicillin-Sulbactam 3 gm 200 In Sodium Chloride 0.9% 100 ml @ 100 mls/hr IVPB Q6HR MICHAEL Rx#:[id number] Oral 720 Other: Voiding Method Toilet Toilet Toilet # Voids 2 - Exam General: The patient is awake and alert, in no distress Eye: there is normal conjunctiva bilaterally. Neck: The neck is supple, there is no JVD. Cardiovascular: Normal S1-S2, no S3-S4, no murmurs. Respiratory: Lungs clear to auscultation bilaterally Gastrointestinal: Abdomen is soft, nontender Neurological:. Speech is normal. Skin: Skin is warm and dry - Labs CBC & Chem 7: 09/03/16 08:35 09/03/16 08:35 Labs: Abnormal Lab Results - Last 24 Hours (Table) 09/03/16 09/03/16 Range/Units 08:35 08:35 RBC 3.51 L (3.80-5.40) m/uL Hgb 10.4 L (11.4-16.0) gm/dL Hct 30.9 L (34.0-46.0) % Plt Count 129 L (150-450) k/uL Potassium 3.3 L (3.5-5.1) mmol/L Chloride 112 H (98-107) mmol/L Carbon Dioxide 21 L (22-30) mmol/L BUN 4 L (7-17) mg/dL Calcium 7.7 L (8.4-10.2) mg/dL Microbiology - Last 24 Hours (Table) 09/02/16 07:19 Blood Culture - Preliminary Blood No Growth after 24 hours 09/01/16 19:00 Blood Culture - Preliminary Blood No Growth after 24 hours Assessment and Plan Plan: 1. Right ankle cellulitis: With no evidence of osteomyelitis on the x-ray. Hard assess for abscess formation. Soft tissue swelling noted on x-ray. Currently on IV vancomycin. Unasyn added by infectious disease. Patient has a history of MRSA skin infection. Given worsening clinical condition I will consult orthopedic to evaluate if IND is needed. 2. Sepsis on presentation secondary to above 3. Major depressive disorder 4. Tobacco abuse 5. Underlying bipolar disorder Today, I reviewed her medication list. Continue current regimen. blood culture negative to date. We will continue to follow closely. Repeat In the morning.
--- NOTE | 2016-09-03 14:49 | P.CNOR ---
History of Present Illness - [facility] Consult date: 09/03/16 Requesting physician: Derrick Hood Consult reason: other (Right ankle cellulitis) History of present illness: Patient is a 25-year-old female seen at bedside this afternoon. Orthopedics was consulted for right ankle pain, swelling and cellulitis that has progressed. Patient states she [place]. She presented to the emergency department on 09/01/2016 after increased redness and pain as well as swelling. She's been on IV vancomycin and has also been put on IV Unasyn. The erythema swelling and pain is not improved much. She has pain with range of motion and is hypersensitive to touch or anyone manipulating her feet. She has no numbness or tingling. She is currently denying fever or chills, calf pain, chest pain, shortness of breath, nausea, vomiting, dizziness, headaches, slurred speech or other. Review of Systems All systems: negative Constitutional: Denies chills, Denies fever Eyes: denies blurred vision, denies pain Ears, nose, mouth and throat: Denies headache, Denies sore throat Cardiovascular: Denies chest pain, Denies shortness of breath Respiratory: Denies cough Gastrointestinal: Denies abdominal pain, Denies diarrhea, Denies nausea, Denies vomiting Genitourinary: Denies dysuria, Denies hematuria Musculoskeletal: Denies myalgias Integumentary: Denies pruritus, Denies rash Neurological: Denies numbness, Denies weakness Psychiatric: Denies anxiety, Denies depression Endocrine: Denies fatigue, Denies weight change Past Medical History Past Medical History: Asthma, Thyroid Disorder Additional Past Medical History / Comment(s): INSOMNIA; BODERLINE PERSONALITY DISORDER, back pain hx of syncope, MURMUR CHILD,BRONCHITIS,CARPAL TUNNEL, ARHTIRITS,UTI'S, MIGRAINES. History of Any Multi-Drug Resistant Organisms: MRSA Year Discovered:: 04/30/16 MDRO Source:: LIP Past Surgical History: Adenoidectomy, Tonsillectomy Additional Past Surgical History / Comment(s): teeth pulled. SEVERAL AREAS ON BODY HAD i&D FROM AREAS WITH MRSA Past Anesthesia/Blood Transfusion Reactions: No Reported Reaction Additional Past Anesthesia/Blood Transfusion Reaction / Comm: CLAUSTERPHOBIA Past Psychological History: Bipolar, PTSD Smoking Status: Current every day smoker Past Alcohol Use History: Occasional Past Drug Use History: Marijuana - Past Family History Mother Family Medical History: Myocardial Infarction ([place]) Additional Family Medical History / Comment(s): AT AGE 45 FROM [place] Father Additional Family Medical History / Comment(s): WHEN PT WAS 9 MONTHS OLD FROM A BRAIN ANUERYSM Medications and Allergies Home Medications Medication Instructions Recorded Confirmed Type Norgestimate-Ethinyl Estradiol 1 tab PO QAM 12/22/13 09/01/16 History [Mononessa 28 Tablet] Sertraline [Zoloft] 100 mg PO HS 10/24/14 09/01/16 History Levothyroxine Sodium [Synthroid] 50 mcg PO QAM 03/10/15 09/01/16 History traZODone HCL 100 mg PO HS 10/04/15 09/01/16 History Albuterol Inhaler [Ventolin Hfa 2 puff INHALATION RT-Q6H PRN 10/24/15 09/01/16 History Inhaler] OXcarbazepine 600 mg PO DAILY 10/24/15 09/01/16 History Gabapentin [Neurontin] 300 mg PO BID 05/27/16 09/01/16 History Ibuprofen [Motrin] 800 mg PO Q8H PRN 05/27/16 09/01/16 History QUEtiapine FUMARATE [SEROquel] 300 mg PO HS 08/31/16 09/01/16 History Acetaminophen [Tylenol] 325 mg PO Q4H PRN 09/01/16 09/01/16 History Ibuprofen [Motrin] 200 mg PO Q6HR PRN 09/01/16 09/01/16 History Allergies Allergy/AdvReac Type Severity Reaction Status Date / Time ceftriaxone sodium Allergy Rash/Hives Verified 09/01/16 18:56 [From Rocephin] latex Allergy Rash/Hives Verified 09/01/16 18:56 bupropion HCl AdvReac Hallucinati Verified 09/01/16 18:56 [From Wellbutrin] ons Physical Examination Inspection of the right lower extremity shows diffuse erythema and edema extending from the distal third of the tibia through the foot and toes. There is a small superficial abscess or wound at the lateral aspect of the right ankle. There is no active bleeding or drainage. There is no evidence of fluctuance or purulent discharge. She is tender to palpation about the foot and ankle. She has pain with dorsiflexion and plantarflexion of the ankle which is generalized and nonspecific. There is no bony abnormality. The ankle is ligamentously stable. There is less than 2 second cap refill. The calf is soft and nontender. Neurovascular status intact throughout the right lower extremity. No fluid collection is appreciated nor any able to be expressed through the lateral ankle wound. Results - Labs Labs: Abnormal Lab Results - Last 24 Hours (Table) 09/03/16 09/03/16 Range/Units 08:35 08:35 RBC 3.51 L (3.80-5.40) m/uL Hgb 10.4 L (11.4-16.0) gm/dL Hct 30.9 L (34.0-46.0) % Plt Count 129 L (150-450) k/uL Potassium 3.3 L (3.5-5.1) mmol/L Chloride 112 H (98-107) mmol/L Carbon Dioxide 21 L (22-30) mmol/L BUN 4 L (7-17) mg/dL Calcium 7.7 L (8.4-10.2) mg/dL Microbiology - Last 24 Hours (Table) 09/02/16 07:19 Blood Culture - Preliminary Blood No Growth after 24 hours 09/01/16 19:00 Blood Culture - Preliminary Blood No Growth after 24 hours H & H 09/01/16 09/02/16 09/03/16 Range/Units 19:00 07:19 08:35 Hgb 12.5 10.9 L 10.4 L (11.4-16.0) gm/dL Hct 35.4 31.6 L 30.9 L (34.0-46.0) % Result Diagrams: 09/03/16 08:35 09/03/16 08:35 - Diagnostic results Ankle/Foot x-ray: report reviewed, image reviewed Assessment and Plan (1) Cellulitis of right ankle Narrative/Plan: Currently I do not believe she is a surgical candidate. I recommended that she maintain elevation of the right lower extremity above her heart. She'll continue with IV antibiotics per infectious disease and primary care team including IV vancomycin and Unasyn. We'll monitor closely and recheck in the a.m. If she does not improve soon we'll consider obtaining MRI versus possible more invasive intervention such as local wound culture and I&D Status: Acute Time with Patient: Less than 30
[2016-09-03] MEDS: CYCLOBENZAPRINE 5 MG TAB PO PRN (14:59)
[2016-09-03] MEDS: ONDANSETRON 4 MG/2 ML VIAL IVP PRN (15:22)
[2016-09-03] MEDS: QUEtiapine 100 MG TAB PO SCH (21:56)
[2016-09-03] MEDS: SERTRALINE 100 MG TAB PO SCH (21:56)
[2016-09-03] MEDS: traZODone HCL 100 MG TAB PO SCH (21:56)
[2016-09-04] MEDS: CYCLOBENZAPRINE 5 MG TAB PO PRN (00:48)
[2016-09-04] MEDS: AMPICILLIN-SULBACTAM 3 GM in SODIUM CHLORIDE 0.9% 100 ML IVPB SCH ×5 (00:48→23:48)
[2016-09-04] MEDS: VANCOMYCIN 2,000 MG in SODIUM CHLORIDE 0.9% 500 ML IVPB SCH ×4 (02:20→23:49)
[2016-09-04] MEDS: ACETAMINOPHEN TAB 325 MG TAB PO PRN (02:31)
[2016-09-04] MEDS: POTASSIUM CHLORIDE ER 20 MEQ TAB.ER PO SCH ×2 (02:41→03:40)
[2016-09-04] MEDS: LEVOTHYROXINE 50 MCG TAB PO SCH (05:44)
[2016-09-04] MEDS: ONDANSETRON 4 MG/2 ML VIAL IVP PRN (05:59)
--- NOTE | 2016-09-04 08:43 | PN ---
DATE OF SERVICE: 09/03/16 REASON FOR FOLLOW UP: Right ankle and leg cellulitis. INTERVAL HISTORY: The patient overall feels better and has improved. Pain to the ankle and the foot is slightly decreased. No skin breakdown. No drainage. Denies significant chest pain, shortness of breath, cough. No nausea or vomiting. No abdominal pain. No diarrhea. On examination, blood pressure 111/54, pulse 98, temperature 99.1, she is 96% on room air. General description revealed a middle age female, lying in the bed , in no distress. Respiratory: Unlabored breathing. Clear to auscultation anteriorly. Heart: S1, S2 regular rate and rhythm. Abdomen soft, no tenderness. Right foot swelling has improved and redness has slightly improved. No skin breakdown. No drainage. Labs: Hemoglobin 10.4, white count 6.4. BUN 4, creatinine 0.54. DIAGNOSTIC IMPRESSION AND PLAN: Patient with right foot ( ) cellulitis in a patient who did sustain an injury while ( ) with question of possible MRSA, ( ) pathogen. Currently covered with Vancomycin and ( ). Continue ( ). Continue supportive care. MTDD
[2016-09-04 08:44] LABS: Basophils % (A) 1 %; CH 29.6; CHCM 32.9; Eosinophils # (A) 0.2 k/uL (0-0.7); Eosinophils % (A) 3 %; HCT 28.8 % (34.0-46.0); HDW 2.57; HGB 9.6 gm/dL (11.4-16.0); Luc # (Auto) 0.25; Luc % (Auto) 4; Lymphocytes # (A) 1.8 k/uL (1.0-4.8); Lymphocytes % (A) 30 %; MCHC 33.2 g/dL (31.0-37.0); MCV 90.5 fL (80.0-100.0); Mean Platelet Volume 9.3; Monocytes # (A) 0.3 k/uL (0-1.0); Monocytes % (A) 4 %; Neutrophils # (A) 3.5 k/uL (1.3-7.7); Neutrophils % (A) 58 %; RBC 3.18 m/uL (3.80-5.40); RDW 13.4 % (11.5-15.5); WBC (Perox) 5.67
[2016-09-04 08:48] LABS: Anion Gap 8 mmol/L; Blood Urea Nitrogen 3 mg/dL (7-17); Calcium 7.8 mg/dL (8.4-10.2); Carbon Dioxide 20 mmol/L (22-30); Chloride 113 mmol/L (98-107); Glucose 72 mg/dL (74-99); Non-African American GFR(MDRD) >60 (>60 ml/min/1.73 sqM); Sodium 141 mmol/L (137-145)
[2016-09-04] MEDS: SODIUM CHLORIDE 0.9% 1,000 ML IV SCH (09:12)
--- NOTE | 2016-09-04 09:14 | P.PN ---
Subjective Principal diagnosis: Right lower extremity cellulitis Patient is 25-year-old female seen at bedside this morning. We were consulted for evaluation and recommendations regarding her cellulitis and possible abscess at the right ankle. She's been on IV Unasyn and vancomycin. She's not improved a great deal. She continues to have pain and swelling along with erythema at the right distal lower extremity. She has no new complaints today. She denies fever, calf pain, chest pain, shortness of breath, chills or other. Objective - Vital Signs Vital signs: Vital Signs Temp 98.4 F 09/04/16 07:00 Pulse 81 09/04/16 07:00 Resp 16 09/04/16 07:00 BP 115/58 09/04/16 07:00 Pulse Ox 96 09/04/16 07:00 Intake & Output 09/03/16 09/04/16 09/04/16 18:59 06:59 18:59 Intake Total 480 Balance 480 Intake: Oral 480 Other: Voiding Method Toilet Bedside Commode # Voids 2 1 - Exam Inspection of the right lower extremity shows diffuse [id number] erythema from the distal third of the lower extremity through the foot. There is mild to moderate edema. She is tender to touch at the ankle and foot. There is a non-draining superficial wound at the lateral ankle. Neurovascular status intact with motor and sensation throughout the lower extremity. 1+ dorsalis pedis pulse and less than 2 second cap refill is present. Calf is soft and nontender. - Constitutional General appearance: Present: no acute distress - Psychiatric Psychiatric: Present: A&O x's 3, appropriate affect, intact judgment & insight - Labs CBC & Chem 7: 09/04/16 08:01 09/04/16 08:01 Labs: Abnormal Lab Results - Last 24 Hours (Table) 09/03/16 09/03/16 09/04/16 Range/Units 08:35 08:35 08:01 RBC 3.51 L (3.80-5.40) m/uL Hgb 10.4 L (11.4-16.0) gm/dL Hct 30.9 L (34.0-46.0) % Plt Count 129 L (150-450) k/uL Potassium 3.3 L (3.5-5.1) mmol/L Chloride 112 H 113 H (98-107) mmol/L Carbon Dioxide 21 L 20 L (22-30) mmol/L BUN 4 L 3 L (7-17) mg/dL Glucose 72 L (74-99) mg/dL Calcium 7.7 L 7.8 L (8.4-10.2) mg/dL 09/04/16 Range/Units 08:01 RBC 3.18 L (3.80-5.40) m/uL Hgb 9.6 L (11.4-16.0) gm/dL Hct 28.8 L (34.0-46.0) % Plt Count (150-450) k/uL Potassium (3.5-5.1) mmol/L Chloride (98-107) mmol/L Carbon Dioxide (22-30) mmol/L BUN (7-17) mg/dL Glucose (74-99) mg/dL Calcium (8.4-10.2) mg/dL Microbiology - Last 24 Hours (Table) 09/01/16 19:00 Blood Culture - Preliminary Blood No Growth after 48 hours 09/02/16 07:19 Blood Culture - Preliminary Blood No Growth after 24 hours Assessment and Plan (1) Cellulitis of right ankle Narrative/Plan: She has not improved much this morning however her white blood cell count has remained normal and she is afebrile. I am going to request Dr. Hood examine and make his recommendations regarding I&D versus continue monitoring or testing. I encouraged to maintain elevation of the right lower extremity above her heart. She'll continue with IV antibiotics per infectious disease and primary care team including IV vancomycin and Unasyn. We'll monitor closely and make further recommendations as appropriate. Status: Acute Time with Patient: Less than 30
[2016-09-04] MEDS: NORGESTIMATE-ETHINYL ESTRADIOL 1 EACH TABLET PO SCH (09:15)
[2016-09-04] MEDS: HEPARIN SODIUM,PORCINE 5,000 UNIT/ML 1 ML VIAL SQ SCH ×2 (09:15→20:04)
[2016-09-04] MEDS: GABAPENTIN 300 MG CAP PO SCH ×2 (09:16→20:05)
[2016-09-04] MEDS: OXcarbazepine 300 MG TAB PO SCH (09:16)
[2016-09-04] MEDS: IBUPROFEN 400 MG TAB PO PRN ×2 (09:30→20:10)
--- NOTE | 2016-09-04 12:10 | P.PN ---
Subjective Patient is still complaining of pain and discomfort in her foot. She does not feel that her foot is improving and her ankle is actually getting worse. She started having high-grade fevers though blood cultures are negative to date. She is on broad-spectrum antibiotic. Objective - Vital Signs Vital signs: Vital Signs Temp 98.4 F 09/04/16 07:00 Pulse 81 09/04/16 07:00 Resp 16 09/04/16 07:00 BP 115/58 09/04/16 07:00 Pulse Ox 96 09/04/16 07:00 Intake & Output 09/03/16 09/04/16 09/04/16 18:59 06:59 18:59 Intake Total 480 Output Total 400 Balance 480 -400 Intake: Oral 480 Output: Urine 400 Other: Voiding Method Toilet Bedside Commode Bedside Commode # Voids 2 1 1 - Exam General: The patient is awake and alert, in no distress Eye: there is normal conjunctiva bilaterally. Neck: The neck is supple, there is no JVD. Cardiovascular: Normal S1-S2, no S3-S4, no murmurs. Respiratory: Lungs clear to auscultation bilaterally Gastrointestinal: Abdomen is soft, nontender Neurological:. Speech is normal. Skin: Skin is warm and dry - Labs CBC & Chem 7: 09/04/16 08:01 09/04/16 08:01 Labs: Abnormal Lab Results - Last 24 Hours (Table) 09/04/16 09/04/16 Range/Units 08:01 08:01 RBC 3.18 L (3.80-5.40) m/uL Hgb 9.6 L (11.4-16.0) gm/dL Hct 28.8 L (34.0-46.0) % Chloride 113 H (98-107) mmol/L Carbon Dioxide 20 L (22-30) mmol/L BUN 3 L (7-17) mg/dL Glucose 72 L (74-99) mg/dL Calcium 7.8 L (8.4-10.2) mg/dL Microbiology - Last 24 Hours (Table) 09/02/16 07:19 Blood Culture - Preliminary Blood No Growth after 48 hours 09/01/16 19:00 Blood Culture - Preliminary Blood No Growth after 48 hours Assessment and Plan Plan: 1. Right ankle cellulitis: With no evidence of osteomyelitis on the x-ray. Soft tissue swelling noted on x-ray. Currently on IV vancomycin and Unasyn managed by infectious disease. Patient has a history of MRSA skin infection. She was also seen and evaluated by orthopedic and MRI of the foot and ankle ordered for today. 2. Sepsis on presentation secondary to above 3. Major depressive disorder 4. Tobacco abuse 5. Underlying bipolar disorder Today, I reviewed her medication list. Continue current regimen. blood culture negative to date. repeat blood culture ordered today. We will continue to follow closely. Repeat In the morning.
[2016-09-04] MEDS: SUMAtriptan SUCCINATE 50 MG TAB PO PRN (12:54)
--- NOTE | 2016-09-04 16:10 | MR ---
EXAMINATION TYPE: MR foot RT wo/w con DATE OF EXAM: 09/04/2016 COMPARISON: NONE HISTORY: Rt foot--Pt has open wound near 5th toe and lateral malleolus CONTRAST: Standard multiplanar, multisequence MRI departmental protocol utilizing 20 mL intravenous MultiHance gadolinium contrast. FINDINGS: Exam is noted suboptimal due to motion on images as patient continued to fall asleep. There is loss of normal subcutaneous fat along plantar surface at level of fifth metatarsal head. Bone mar row signal intensity however is maintained in the fifth toe without suspicious edema or enhancement. Remainder visualized osseous structures show no suspicious edema or enhancement. Flexion in the toes is present. Exam is noted suboptimal due to incomplete fat saturation. There is abnormal skin thickening along do rsal surface. There is moderate to severe diffuse subcutaneous edema along the dorsal surface. There is suggestion of subcutaneous enhancement along dorsal surface could reflect a large area of cellulit is or infection at site of edema. No well-formed fluid collection or drainable abscess is present. No suspicious cortical destruction or periosteal reaction is seen. IMPRESSION: No convincing evidence for acute osteomyelitis with particular attention to the fifth toe at area of clinical concern.
[2016-09-04] MEDS: FAMOTIDINE 20 MG TAB PO SCH (17:55)
--- NOTE | 2016-09-04 18:28 | PN ---
DATE OF SERVICE: 09/04/2016 REASON FOR FOLLOW UP: Right ankle and foot cellulitis. INTERVAL HISTORY: The patient did spike another fever of 101 degrees Fahrenheit last night. The patient is afebrile this morning. She is complaining of feeling nauseous and may throw up. No significant abdominal pain or diarrhea. The right ankle swelling and redness is has improved. Pain is about the same with no worsening. On examination: Blood pressure 115/58 with pulse 81. Temperature 98.4. She is 96% on room air. General description is a young female lying in bed in no distress. RESPIRATORY: Unlabored breathing. Clear to auscultation anteriorly. HEART: S1, S2 regular rate and rhythm. ABDOMEN: Soft, no tenderness. EXTREMITIES: Right foot swelling persists. The redness has improved. No drainage was noticed. LABS: Hemoglobin 10.6, white count 6.0, BUN 30, creatinine 0.56. Blood culture 08/31 and 09/02 negative. DIAGNOSTIC IMPRESSION AND PLAN: Patient with right foot and ankle area cellulitis with question of underlying abscess. The patient did have persistent fever despite being on two antibiotic therapies. MRI has been ordered. Will follow the results and possible drainage and deep cultures to cover antibiotic therapy. continue with the vancomycin and Unasyn at this point. Continue supportive care. REZAD
[2016-09-04] MEDS: traZODone HCL 100 MG TAB PO SCH (20:04)
[2016-09-04] MEDS: QUEtiapine 100 MG TAB PO SCH (20:05)
[2016-09-04] MEDS: SERTRALINE 100 MG TAB PO SCH (20:05)
[2016-09-05] MEDS: AMPICILLIN-SULBACTAM 3 GM in SODIUM CHLORIDE 0.9% 100 ML IVPB SCH ×4 (05:13→23:28)
[2016-09-05] MEDS: IBUPROFEN 400 MG TAB PO PRN ×2 (05:20→21:34)
[2016-09-05] MEDS: LEVOTHYROXINE 50 MCG TAB PO SCH (05:22)
[2016-09-05] MEDS ORDERED: VANCOMYCIN TROUGH DUE 1 EACH MISC MISCELLANE ONE (07:00)
[2016-09-05 07:32] LABS: Basophils % (A) 1 %; CH 29.3; CHCM 33.2; Eosinophils # (A) 0.2 k/uL (0-0.7); Eosinophils % (A) 4 %; HCT 28.6 % (34.0-46.0); HGB 9.6 gm/dL (11.4-16.0); Luc # (Auto) 0.23; Luc % (Auto) 4; Lymphocytes # (A) 2.2 k/uL (1.0-4.8); Lymphocytes % (A) 37 %; MCH 29.8 pg (25.0-35.0); MCHC 33.5 g/dL (31.0-37.0); MCV 88.8 fL (80.0-100.0); Monocytes # (A) 0.3 k/uL (0-1.0); Monocytes % (A) 5 %; Neutrophils # (A) 2.9 k/uL (1.3-7.7); Neutrophils % (A) 50 %; RBC 3.22 m/uL (3.80-5.40); RDW 13.2 % (11.5-15.5); WBC 5.8 k/uL (3.8-10.6); WBC (Perox) 6.14
[2016-09-05 08:10] LABS: Anion Gap 7 mmol/L; Blood Urea Nitrogen 5 mg/dL (7-17); Carbon Dioxide 23 mmol/L (22-30); Chloride 112 mmol/L (98-107); Glucose 76 mg/dL (74-99); Non-African American GFR(MDRD) >60 (>60 ml/min/1.73 sqM); Sodium 142 mmol/L (137-145)
[2016-09-05] MEDS: NORGESTIMATE-ETHINYL ESTRADIOL 1 EACH TABLET PO SCH (08:37)
[2016-09-05] MEDS: HEPARIN SODIUM,PORCINE 5,000 UNIT/ML 1 ML VIAL SQ SCH ×2 (08:37→21:36)
[2016-09-05] MEDS: VANCOMYCIN 2,000 MG in SODIUM CHLORIDE 0.9% 500 ML IVPB SCH (08:38)
[2016-09-05] MEDS: OXcarbazepine 300 MG TAB PO SCH (08:38)
[2016-09-05] MEDS: GABAPENTIN 300 MG CAP PO SCH ×2 (08:38→21:35)
[2016-09-05] MEDS: FAMOTIDINE 20 MG TAB PO SCH ×2 (08:39→21:35)
--- NOTE | 2016-09-05 13:04 | P.PN ---
Subjective Principal diagnosis: Right lower extremity cellulitis Patient is 25-year-old female seen at bedside this afternoon. She had her MRI yesterday for cellulitis and possible abcess at the right ankle. She is much improved today. She's been on IV Unasyn and vancomycin. She has no new complaints today. She denies fever, calf pain, chest pain, shortness of breath , chills or other. Objective - Vital Signs Vital signs: Vital Signs Temp 98.3 F 09/05/16 07:00 Pulse 67 09/05/16 07:00 Resp 16 09/05/16 07:00 BP 133/78 09/05/16 07:00 Pulse Ox 94 L 09/05/16 07:00 Intake & Output 09/04/16 09/05/16 09/05/16 18:59 06:59 18:59 Intake Total 1000 1460 Output Total 400 Balance 600 1460 Intake: Intake, IV Titration 1000 1220 Amount Ampicillin-Sulbactam 3 gm 100 200 In Sodium Chloride 0.9% 100 ml @ 100 mls/hr IVPB Q6HR MICHAEL Rx#:[id number] Sodium Chloride 0.9% 1, 400 520 000 ml @ 75 mls/hr IV . [id number] MICHAEL Rx#:[id number] Vancomycin 2,000 mg In 500 500 Sodium Chloride 0.9% 500 ml @ 167 mls/hr IVPB Q8HR MICHAEL Rx#:[id number] Oral 240 Output: Urine 400 Other: Voiding Method Bedside Commode Bedside Commode Bedside Commode # Voids 3 3 - Exam Inspection of the right lower extremity shows minimal erythema at the right foot. Marked recession from yesterday's exam. There is mild edema. There is improved tenderness to touch at the ankle and foot. There is a non-draining superficial wound at the lateral ankle. Neurovascular status intact with motor and sensation throughout the lower extremity. 1+ dorsalis pedis pulse and less than 2 second cap refill is present. Calf is soft and nontender. - Constitutional General appearance: Present: no acute distress, obese - Psychiatric Psychiatric: Present: A&O x's 3, appropriate affect, intact judgment & insight - Labs CBC & Chem 7: 09/05/16 07:16 09/05/16 07:16 Labs: Abnormal Lab Results - Last 24 Hours (Table) 09/05/16 09/05/16 Range/Units 07:16 07:16 RBC 3.22 L (3.80-5.40) m/uL Hgb 9.6 L (11.4-16.0) gm/dL Hct 28.6 L (34.0-46.0) % Chloride 112 H (98-107) mmol/L BUN 5 L (7-17) mg/dL Calcium 8.0 L (8.4-10.2) mg/dL Microbiology - Last 24 Hours (Table) 09/02/16 07:19 Blood Culture - Preliminary Blood No Growth after 72 hours 09/01/16 19:00 Blood Culture - Preliminary Blood No Growth after 72 hours - Imaging and Cardiology MRI of the right ankle and foot shows no evidence of fluid collection or osteomyelitis Assessment and Plan (1) Cellulitis of right ankle Narrative/Plan: She is much improved clinically. MRI is negative. No plan for orthopedic surgical intervention. She may follow up as an outpatient prn. Thank you Status: Acute Time with Patient: Less than 30
--- NOTE | 2016-09-05 15:56 | P.PN ---
Subjective Patient is doing a lot better today. This has improved significantly. The swelling is coming down as well. Objective - Vital Signs Vital signs: Vital Signs Temp 98.3 F 09/05/16 07:00 Pulse 67 09/05/16 07:00 Resp 16 09/05/16 07:00 BP 133/78 09/05/16 07:00 Pulse Ox 94 L 09/05/16 07:00 Intake & Output 09/04/16 09/05/16 09/05/16 18:59 06:59 18:59 Intake Total 1000 1460 Output Total 400 Balance 600 1460 Intake: Intake, IV Titration 1000 1220 Amount Ampicillin-Sulbactam 3 gm 100 200 In Sodium Chloride 0.9% 100 ml @ 100 mls/hr IVPB Q6HR MICHAEL Rx#:[id number] Sodium Chloride 0.9% 1, 400 520 000 ml @ 75 mls/hr IV . [id number] MICHAEL Rx#:[id number] Vancomycin 2,000 mg In 500 500 Sodium Chloride 0.9% 500 ml @ 167 mls/hr IVPB Q8HR MICHAEL Rx#:[id number] Oral 240 Output: Urine 400 Other: Voiding Method Bedside Commode Bedside Commode Bedside Commode # Voids 3 3 - Exam General: The patient is awake and alert, in no distress Eye: there is normal conjunctiva bilaterally. Neck: The neck is supple, there is no JVD. Cardiovascular: Normal S1-S2, no S3-S4, no murmurs. Respiratory: Lungs clear to auscultation bilaterally Gastrointestinal: Abdomen is soft, nontender Neurological:. Speech is normal. Skin: Skin is warm and dry - Labs CBC & Chem 7: 09/05/16 07:16 09/05/16 07:16 Labs: Abnormal Lab Results - Last 24 Hours (Table) 09/05/16 09/05/16 Range/Units 07:16 07:16 RBC 3.22 L (3.80-5.40) m/uL Hgb 9.6 L (11.4-16.0) gm/dL Hct 28.6 L (34.0-46.0) % Chloride 112 H (98-107) mmol/L BUN 5 L (7-17) mg/dL Calcium 8.0 L (8.4-10.2) mg/dL Microbiology - Last 24 Hours (Table) 09/04/16 12:57 Blood Culture - Preliminary Blood No Growth after 24 hours 09/02/16 07:19 Blood Culture - Preliminary Blood No Growth after 72 hours 09/01/16 19:00 Blood Culture - Preliminary Blood No Growth after 72 hours Assessment and Plan Plan: 1. Right ankle cellulitis: With no evidence of osteomyelitis on the x-ray or MRI of the foot.. Soft tissue swelling noted on x-ray. Currently on IV vancomycin and Unasyn managed by infectious disease. Patient has a history of MRSA skin infection. She was also seen and evaluated by orthopedic. No intervention needed. 2. Sepsis on presentation secondary to above 3. Major depressive disorder 4. Tobacco abuse 5. Underlying bipolar disorder Today, I reviewed her medication list. Patient is improving significantly. May switch antibiotic to oral discharged home tomorrow. Continue current regimen. blood culture negative to date. repeat blood culture ordered today. We will continue to follow closely. Repeat In the morning.
[2016-09-05] MEDS: SUMAtriptan SUCCINATE 50 MG TAB PO PRN (19:15)
--- NOTE | 2016-09-05 19:44 | PN ---
DATE OF SERVICE: 09/05/2016 REASON FOR FOLLOWUP: Right ankle and foot cellulitis. INTERVAL HISTORY: The patient is afebrile. She is feeling better overall. Pain and swelling have improved. There is no drainage. The patient denies significant chest pain, shortness of breath or cough. No abdominal pain or any diarrhea. On examination, blood pressure is 133/78 with a pulse of 67, temperature 98.3. She is 94% on room air. General description is a 25-year-old young female lying in bed in no distress. RESPIRATORY SYSTEM: Unlabored breathing. Clear to auscultation anteriorly. HEART: S1, S2. Regular rate and rhythm. ABDOMEN: Soft. No tenderness. RIGHT ANKLE AND FOOT: Swelling and redness have improved. No drainage. LABS: Hemoglobin 9.6, white count 5.8 with a BUN of 5, creatinine 0.55. Blood culture has been negative. MRI was negative for any abscess. DIAGNOSTIC IMPRESSION AND PLAN: Patient with right ankle foot cellulitis after sustaining a small injury to the lateral ankle area. So far blood cultures are negative. No local cultures were obtained or obtainable. Patient showing overall improvement on vancomycin; plan to finish therapy with p.o. Bactrim DS ( ) for another 10 days with outpatient followup. CRISTINA
[2016-09-05] MEDS: SERTRALINE 100 MG TAB PO SCH (21:35)
[2016-09-05] MEDS: QUEtiapine 100 MG TAB PO SCH (21:35)
[2016-09-05] MEDS: traZODone HCL 100 MG TAB PO SCH (21:35)
[2016-09-05] MEDS: ONDANSETRON 4 MG/2 ML VIAL IVP PRN (22:14)
[2016-09-05] MEDS: CYCLOBENZAPRINE 5 MG TAB PO PRN (22:15)
--- NOTE | 2016-09-05 22:30 | MR ---
MR right ankle HISTORY: Infection, swelling Multiplanar multisequence and postcontrast images obtained through the right ankle following 20 cc Mu ltiHance IV Correlation to plain film 09/01/2016, MR right foot 09/04/2016 Extensive subcutaneous edema changes are present. Bone marrow signal is maintained. Flexor and extens or tendons, peroneal longus and brevis tendons are intact. Achilles tendon, plantar aponeurosis intac t. No sizable ankle joint effusion. There is some enhancement of the skin and subcutaneous fat. No evident abscess. IMPRESSION: Findings suggest cellulitis. No evident osteomyelitis.
[2016-09-06] MEDS: VANCOMYCIN 2,000 MG in SODIUM CHLORIDE 0.9% 500 ML IVPB SCH ×2 (01:12→13:12)
[2016-09-06] MEDS: AMPICILLIN-SULBACTAM 3 GM in SODIUM CHLORIDE 0.9% 100 ML IVPB SCH ×2 (06:28→11:09)
[2016-09-06] MEDS: LEVOTHYROXINE 50 MCG TAB PO SCH (06:28)
[2016-09-06 07:55] VITALS: BP 128/68; PULSE 61; RESP 16; TEMP 98.1
[2016-09-06 08:12] LABS: Anion Gap 8 mmol/L; Blood Urea Nitrogen 5 mg/dL (7-17); Calcium 8.2 mg/dL (8.4-10.2); Carbon Dioxide 23 mmol/L (22-30); Chloride 111 mmol/L (98-107); Glucose 72 mg/dL (74-99); Non-African American GFR(MDRD) >60 (>60 ml/min/1.73 sqM); Potassium 3.9 mmol/L (3.5-5.1); Sodium 142 mmol/L (137-145)
[2016-09-06 08:31] LABS: Basophils # (A) 0.1 k/uL (0-0.2); Basophils % (A) 1 %; CH 29.6; CHCM 33.3; Eosinophils # (A) 0.2 k/uL (0-0.7); Eosinophils % (A) 3 %; HCT 28.2 % (34.0-46.0); HDW 2.64; HGB 9.3 gm/dL (11.4-16.0); Luc # (Auto) 0.18; Luc % (Auto) 4; Lymphocytes # (A) 2.5 k/uL (1.0-4.8); Lymphocytes % (A) 47 %; MCH 29.5 pg (25.0-35.0); MCHC 33.1 g/dL (31.0-37.0); MCV 89.2 fL (80.0-100.0); Mean Platelet Volume 8.6; Monocytes # (A) 0.4 k/uL (0-1.0); Monocytes % (A) 7 %; Neutrophils % (A) 38 %; RBC 3.16 m/uL (3.80-5.40); RDW 13.5 % (11.5-15.5); WBC 5.2 k/uL (3.8-10.6); WBC (Perox) 5.24
[2016-09-06] MEDS: NORGESTIMATE-ETHINYL ESTRADIOL 1 EACH TABLET PO SCH (09:39)
[2016-09-06] MEDS: OXcarbazepine 300 MG TAB PO SCH (09:39)
[2016-09-06] MEDS: FAMOTIDINE 20 MG TAB PO SCH (09:39)
[2016-09-06] MEDS: GABAPENTIN 300 MG CAP PO SCH (09:40)
[2016-09-06] MEDS: HEPARIN SODIUM,PORCINE 5,000 UNIT/ML 1 ML VIAL SQ SCH (09:40)
[2016-09-06] MEDS: IBUPROFEN 400 MG TAB PO PRN (09:45)
[2016-09-06] MEDS ORDERED: POTASSIUM CHLORIDE ER 20 MEQ TAB.ER PO SCH (10:00)
[2016-09-06] MEDS ORDERED: VANCOMYCIN TROUGH DUE 1 EACH MISC MISCELLANE ONE (11:00)
[2016-09-06] MEDS: SUMAtriptan SUCCINATE 50 MG TAB PO PRN (11:14)
--- NOTE | 2016-09-06 12:20 | P.DS ---
Providers Date of admission: 09/01/16 21:12 Expected date of discharge: 09/06/16 Attending physician: Jenelle Sherman Consults: 09/02/16 15:40 Consult Physician Routine Consulting Provider: Lynne Owens Consult Reason/Comments: Cellulitis of the right ankle Do you want consulting provider notified?: Yes 09/03/16 13:15 Consult Physician Routine Consulting Provider: Kj Cardoso Consult Reason/Comments: Right ankle abscess? Do you want consulting provider notified?: Yes Primary care physician: [facility] Course: 1. Right ankle cellulitis: With no evidence of osteomyelitis on the x-ray or MRI of the foot.. Soft tissue swelling noted on x-ray. started on IV vancomycin and Unasyn. Patient has a history of MRSA skin infection. She was seen and evaluated by infectious disease. No culture obtained during this admission. To finish antibiotic course with Bactrim for 10 days. She was also seen and evaluated by orthopedic. No intervention needed. 2. Sepsis on presentation secondary to above 3. Major depressive disorder 4. Tobacco abuse 5. Underlying bipolar disorder Patient Condition at Discharge: Stable Plan - Discharge Summary New Discharge Prescriptions: New Sulfamethox-Tmp 800-160Mg [Bactrim DS 800-160 mg] 1 tab PO Q12HR #14 tab Continue Norgestimate-Ethinyl Estradiol [Mononessa 28 Tablet] 1 tab PO QAM Sertraline [Zoloft] 100 mg PO HS Levothyroxine Sodium [Synthroid] 50 mcg PO QAM traZODone HCL 100 mg PO HS OXcarbazepine 600 mg PO DAILY Albuterol Inhaler [Ventolin Hfa Inhaler] 2 puff INHALATION RT-Q6H PRN PRN Reason: Shortness Of Breath Gabapentin [Neurontin] 300 mg PO BID QUEtiapine FUMARATE [SEROquel] 300 mg PO HS Ibuprofen [Motrin] 200 mg PO Q6HR PRN PRN Reason: Pain Acetaminophen [Tylenol] 325 mg PO Q4H PRN PRN Reason: Pain Discontinued Ibuprofen [Motrin] 800 mg PO Q8H PRN PRN Reason: Pain Clindamycin [Cleocin] 450 mg PO Q8HR #90 capsule Discharge Medication List Norgestimate-Ethinyl Estradiol [Mononessa 28 Tablet] 1 tab PO QAM 12/22/13 [ History] Sertraline [Zoloft] 100 mg PO HS 10/24/14 [History] Levothyroxine Sodium [Synthroid] 50 mcg PO QAM 03/10/15 [History] traZODone HCL 100 mg PO HS 10/04/15 [History] Albuterol Inhaler [Ventolin Hfa Inhaler] 2 puff INHALATION RT-Q6H PRN 10/24/15 [ History] OXcarbazepine 600 mg PO DAILY 10/24/15 [History] Gabapentin [Neurontin] 300 mg PO BID 05/27/16 [History] QUEtiapine FUMARATE [SEROquel] 300 mg PO HS 08/31/16 [History] Acetaminophen [Tylenol] 325 mg PO Q4H PRN 09/01/16 [History] Ibuprofen [Motrin] 200 mg PO Q6HR PRN 09/01/16 [History] Sulfamethox-Tmp 800-160Mg [Bactrim DS 800-160 mg] 1 tab PO Q12HR #14 tab [Rx] Follow up Appointment(s)/Referral(s): Jenelle Sherman MD [Primary Care Provider] - 1-2 days Discharge Disposition: HOME SELF-CARE
--- NOTE | 2016-09-06 15:29 | PN ---
DATE OF SERVICE: 09/06/16 REASON FOR FOLLOW UP: Right ankle cellulitis. INTERVAL HISTORY: The patient is afebrile. She is feeling better. Breathing comfortably today. Denies significant chest pain. No shortness of breath or cough. No abdominal pain. The right ankle swelling and redness has improved. No skin breakdown. No drainage. No diarrhea with antibiotic therapy. On examination, blood pressure 128/60, pulse 61, temperature 98.1, she is 95% on room air. General description is an elderly female up in the bed, in no distress. Respiratory: Unlabored breathing. Clear to auscultation anteriorly. Heart: S1, S2 regular rate and rhythm. Abdomen soft, no tenderness. Right ankle swelling and redness has improved. Labs: Hemoglobin 9.3, white count 5.2. Blood culture negative. DIAGNOSTIC IMPRESSION AND PLAN: Patient acute right ankle and lower leg cellulitis with a small wound to the lateral ankle area. The patient did have previous history of MRSA infection including more likely MRSA cellulitis with an MRA negative for any osteomyelitis or any abscess. Plan at this time is to finish therapy with oral Bactrim DS for another 10 days with close outpatient follow-up. Continue supportive care. MTDD
== END 2016-09-06 15:55 | disposition home or self-care (01) | DRG 872 ==
LOC: EC 17:49 → 5MS5E 21:12
PROVIDERS: ADMIT Internal Medicine; ATTEND Internal Medicine
DX: A41.9 Sepsis, unspecified organism (principal); L03.115 Cellulitis of right lower limb; E03.9 Hypothyroidism, unspecified; F17.200 Nicotine dependence, unspecified, uncomplicated; F31.9 Bipolar disorder, unspecified; F43.10 Post-traumatic stress disorder, unspecified; F60.9 Personality disorder, unspecified; J45.909 Unspecified asthma, uncomplicated; S90.51 Abrasion of ankle; W22.09XS Striking against other stationary object, sequela; Z79.899 Other long term (current) drug therapy; Z82.49 Family history of ischemic heart disease and other diseases of the circulatory system; Z86.14 Personal history of Methicillin resistant Staphylococcus aureus infection; G47.00 Insomnia, unspecified; Z88.8 Allergy status to other drugs, medicaments and biological substances; Z88.1 Allergy status to other antibiotic agents; Z91.040 Latex allergy status; Z79.2 Long term (current) use of antibiotics; M54.9 Dorsalgia, unspecified
CPT/HCPCS: 36415; 80048; 80053; 80202; 83605; 84132; 85025; 87040; 96365; 96366; 96367; 99284

== ENCOUNTER 2016-09-09 21:58 | Emergency (ER) | payer OTHER ==
[2016-09-09 22:18] VITALS: RESP 18
[2016-09-10] MEDS ORDERED: SODIUM CHLORIDE 0.9% 1,000 ML IV ONE (00:13)
[2016-09-10] MEDS ORDERED: MORPHINE SULFATE 4 MG/ML SYRINGE IVP STA (00:13)
--- NOTE | 2016-09-10 00:19 | ED ---
Abdominal Pain HPI - General Chief Complaint: Abdominal Pain Stated Complaint: blood in stool/abdominal pain Time Seen by Provider: 09/09/16 23:06 Source: patient, RN notes reviewed Mode of arrival: wheelchair Limitations: no limitations - History of Present Illness Initial Comments: Patient is a 25-year-old female presents emergency room for evaluation of abdominal pain. Patient states she began having abdominal cramping this morning. She states after dinner she noticed bright red blood in her stools. Patient states having loose stools/diarrhea throughout the day today. Patient states been very nauseous. Patient states she has had blood in her stools in the past. Patient does state she has a history of hemorrhoids. Patient states she has intermittent diffuse cramping/severe pain in her abdomen that comes before she has a bowel movement. Patient denies chest pain or shortness of breath. Patient denies headache or dizziness. Patient denies recent travel outside the country. She does state that she was recently admitted here for right ankle cellulitis. Patient states she was on IV Vanco in the hospital and discharged with oral Bactrim. Patient states been taking Bactrim for the past 2 days. Patient denies history of abdominal surgeries. Patient denies pain or burning during urination, trouble urinating or blood in urine. - Related Data Home Medications Medication Instructions Recorded Confirmed Norgestimate-Ethinyl Estradiol 1 tab PO QAM 12/22/13 09/01/16 [Mononessa 28 Tablet] Sertraline [Zoloft] 100 mg PO HS 10/24/14 09/01/16 Levothyroxine Sodium [Synthroid] 50 mcg PO QAM 03/10/15 09/01/16 traZODone HCL 100 mg PO HS 10/04/15 09/01/16 Albuterol Inhaler [Ventolin Hfa 2 puff INHALATION RT-Q6H PRN 10/24/15 09/01/16 Inhaler] OXcarbazepine 600 mg PO DAILY 10/24/15 09/01/16 Gabapentin [Neurontin] 300 mg PO BID 05/27/16 09/01/16 QUEtiapine FUMARATE [SEROquel] 300 mg PO HS 08/31/16 09/01/16 Acetaminophen [Tylenol] 325 mg PO Q4H PRN 09/01/16 09/01/16 Ibuprofen [Motrin] 200 mg PO Q6HR PRN 09/01/16 09/01/16 Previous Rx's Medication Instructions Recorded Sulfamethox-Tmp 800-160Mg [Bactrim 1 tab PO Q12HR #14 tab 09/06/16 DS 800-160 mg] Ciprofloxacin HCl [Cipro] 500 mg PO Q12HR 10 Days 09/10/16 Dicyclomine [Bentyl] 10 mg PO TID PRN #15 capsule 09/10/16 Ondansetron Odt [Zofran Odt] 4 mg PO Q8HR PRN #12 tab 09/10/16 metroNIDAZOLE [Flagyl] 500 mg PO Q8HR 10 Days 09/10/16 Allergies Allergy/AdvReac Type Severity Reaction Status Date / Time ceftriaxone sodium Allergy Rash/Hives Verified 09/09/16 22:18 [From Rocephin] latex Allergy Rash/Hives Verified 09/09/16 22:18 bupropion HCl AdvReac Hallucinati Verified 09/09/16 22:18 [From Wellbutrin] ons Review of Systems ROS Statement: Those systems with pertinent positive or pertinent negative responses have been documented in the HPI. ROS Other: All systems not noted in ROS Statement are negative. Past Medical History Past Medical History: Asthma, Thyroid Disorder Additional Past Medical History / Comment(s): INSOMNIA; BODERLINE PERSONALITY DISORDER, back pain hx of syncope, MURMUR CHILD,BRONCHITIS,CARPAL TUNNEL, ARHTIRITS,UTI'S, MIGRAINES. History of Any Multi-Drug Resistant Organisms: MRSA Date of last positivie culture/infection: 04/30/16 MDRO Source:: LIP Past Surgical History: Adenoidectomy, Tonsillectomy Additional Past Surgical History / Comment(s): teeth pulled. SEVERAL AREAS ON BODY HAD i&D FROM AREAS WITH MRSA Past Anesthesia/Blood Transfusion Reactions: No Reported Reaction Additional Past Anesthesia/Blood Transfusion Reaction / Comment(s): CLAUSTERPHOBIA Past Psychological History: Bipolar, PTSD Smoking Status: Current every day smoker Past Alcohol Use History: Occasional Past Drug Use History: Marijuana - Past Family History Mother Family Medical History: Myocardial Infarction ([place]) Additional Family Medical History / Comment(s): AT AGE 45 FROM [place] Father Additional Family Medical History / Comment(s): WHEN PT WAS 9 MONTHS OLD FROM A BRAIN ANUERYSM General Exam - General Exam Comments Initial Comments: Sitting in exam room, no acute distress. Limitations: no limitations General appearance: alert, in no apparent distress Head exam: Present: atraumatic, normocephalic, normal inspection Eye exam: Present: normal appearance ENT exam: Present: normal exam Neck exam: Present: normal inspection Respiratory exam: Present: normal lung sounds bilaterally. Absent: respiratory distress Cardiovascular Exam: Present: regular rate, normal rhythm, normal heart sounds GI/Abdominal exam: Present: soft, tenderness (upper midepigastric), normal bowel sounds. Absent: distended, guarding Rectal exam: Present: normal inspection, normal rectal tone Extremities exam: Present: normal inspection Back exam: Present: normal inspection Neurological exam: Present: alert, oriented X3, CN II-XII intact Psychiatric exam: Present: normal affect, normal mood Skin exam: Present: warm, dry, intact, normal color. Absent: rash Course Vital Signs 09/09/16 09/10/16 09/10/16 22:15 02:55 04:09 Temperature 98.4 F 98.0 F Pulse Rate 82 70 70 Respiratory 18 18 18 Rate Blood Pressure 137/78 116/70 117/68 O2 Sat by Pulse 97 96 Oximetry Medical Decision Making - Medical Decision Making patient is a 24-year-old female presents emergency room for evaluation of abdominal pain and diarrhea. Fecal occult positive. Abdominal CT significant for colitis. Will treat patient for colitis and have her return for worsening symptoms. Patient states she understands everything that was discussed. Return parameters discussed. Case discussed with Dr. Ace. - Lab Data Result diagrams: 09/10/16 00:48 09/10/16 00:48 Lab Results 09/10/16 09/10/16 09/10/16 Range/Units 00:40 00:40 00:48 WBC (3.8-10.6) k/uL RBC (3.80-5.40) m/uL Hgb (11.4-16.0) gm/dL Hct (34.0-46.0) % MCV (80.0-100.0) fL MCH (25.0-35.0) pg MCHC (31.0-37.0) g/dL RDW (11.5-15.5) % Plt Count (150-450) k/uL Neutrophils % % Lymphocytes % % Monocytes % % Eosinophils % % Basophils % % Neutrophils # (1.3-7.7) k/uL Lymphocytes # (1.0-4.8) k/uL Monocytes # (0-1.0) k/uL Eosinophils # (0-0.7) k/uL Basophils # (0-0.2) k/uL PT (9.0-12.0) sec INR (<1.2) APTT (22.0-30.0) sec Sodium 138 (137-145) mmol/L Potassium 5.1 (3.5-5.1) mmol/L Chloride 103 (98-107) mmol/L Carbon Dioxide 23 (22-30) mmol/L Anion Gap 12 mmol/L BUN 11 (7-17) mg/dL Creatinine 0.90 (0.52-1.04) mg/dL Est GFR (MDRD) Af Amer >60 (>60 ml/min/1.73 sqM) Est GFR (MDRD) Non-Af >60 (>60 ml/min/1.73 sqM) Glucose 102 H (74-99) mg/dL Calcium 9.6 (8.4-10.2) mg/dL Total Bilirubin 0.4 (0.2-1.3) mg/dL AST 29 (14-36) U/L ALT 55 H (9-52) U/L Alkaline Phosphatase 72 (38-126) U/L Total Protein 7.6 (6.3-8.2) g/dL Albumin 4.3 (3.5-5.0) g/dL Amylase 54 (30-110) U/L Lipase 158 (23-300) U/L Urine Color Urine Appearance (Clear) Urine pH (5.0-8.0) Ur Specific [place] (1.001-1.035) Urine Protein (Negative) Urine Glucose (UA) (Negative) Urine Ketones (Negative) Urine Blood (Negative) Urine Nitrite (Negative) Urine Bilirubin (Negative) Urine Urobilinogen (<2.0) mg/dL Ur Leukocyte Esterase (Negative) Urine HCG, Qual (Not Detectd) Stool Occult Blood Positive H (Negative) C. difficile (EIA) Intrp Negative (Negative) 09/10/16 09/10/16 09/10/16 Range/Units 00:48 00:48 01:26 WBC 13.4 H (3.8-10.6) k/uL RBC 4.29 (3.80-5.40) m/uL Hgb 12.5 D (11.4-16.0) gm/dL Hct 38.0 (34.0-46.0) % MCV 88.5 (80.0-100.0) fL MCH 29.1 (25.0-35.0) pg MCHC 32.9 (31.0-37.0) g/dL RDW 13.9 (11.5-15.5) % Plt Count 431 (150-450) k/uL Neutrophils % 73 % Lymphocytes % 20 % Monocytes % 4 % Eosinophils % 1 % Basophils % 1 % Neutrophils # 9.8 H (1.3-7.7) k/uL Lymphocytes # 2.7 (1.0-4.8) k/uL Monocytes # 0.6 (0-1.0) k/uL Eosinophils # 0.1 (0-0.7) k/uL Basophils # 0.1 (0-0.2) k/uL PT 10.4 (9.0-12.0) sec INR 1.0 (<1.2) APTT 23.0 (22.0-30.0) sec Sodium (137-145) mmol/L Potassium (3.5-5.1) mmol/L Chloride (98-107) mmol/L Carbon Dioxide (22-30) mmol/L Anion Gap mmol/L BUN (7-17) mg/dL Creatinine (0.52-1.04) mg/dL Est GFR (MDRD) Af Amer (>60 ml/min/1.73 sqM) Est GFR (MDRD) Non-Af (>60 ml/min/1.73 sqM) Glucose (74-99) mg/dL Calcium (8.4-10.2) mg/dL Total Bilirubin (0.2-1.3) mg/dL AST (14-36) U/L ALT (9-52) U/L Alkaline Phosphatase (38-126) U/L Total Protein (6.3-8.2) g/dL Albumin (3.5-5.0) g/dL Amylase (30-110) U/L Lipase (23-300) U/L Urine Color Urine Appearance (Clear) Urine pH (5.0-8.0) Ur Specific [place] (1.001-1.035) Urine Protein (Negative) Urine Glucose (UA) (Negative) Urine Ketones (Negative) Urine Blood (Negative) Urine Nitrite (Negative) Urine Bilirubin (Negative) Urine Urobilinogen (<2.0) mg/dL Ur Leukocyte Esterase (Negative) Urine HCG, Qual Not Detected (Not Detectd) Stool Occult Blood (Negative) C. difficile (EIA) Intrp (Negative) 09/10/16 Range/Units 01:26 WBC (3.8-10.6) k/uL RBC (3.80-5.40) m/uL Hgb (11.4-16.0) gm/dL Hct (34.0-46.0) % MCV (80.0-100.0) fL MCH (25.0-35.0) pg MCHC (31.0-37.0) g/dL RDW (11.5-15.5) % Plt Count (150-450) k/uL Neutrophils % % Lymphocytes % % Monocytes % % Eosinophils % % Basophils % % Neutrophils # (1.3-7.7) k/uL Lymphocytes # (1.0-4.8) k/uL Monocytes # (0-1.0) k/uL Eosinophils # (0-0.7) k/uL Basophils # (0-0.2) k/uL PT (9.0-12.0) sec INR (<1.2) APTT (22.0-30.0) sec Sodium (137-145) mmol/L Potassium (3.5-5.1) mmol/L Chloride (98-107) mmol/L Carbon Dioxide (22-30) mmol/L Anion Gap mmol/L BUN (7-17) mg/dL Creatinine (0.52-1.04) mg/dL Est GFR (MDRD) Af Amer (>60 ml/min/1.73 sqM) Est GFR (MDRD) Non-Af (>60 ml/min/1.73 sqM) Glucose (74-99) mg/dL Calcium (8.4-10.2) mg/dL Total Bilirubin (0.2-1.3) mg/dL AST (14-36) U/L ALT (9-52) U/L Alkaline Phosphatase (38-126) U/L Total Protein (6.3-8.2) g/dL Albumin (3.5-5.0) g/dL Amylase (30-110) U/L Lipase (23-300) U/L Urine Color Yellow Urine Appearance Clear (Clear) Urine pH 6.5 (5.0-8.0) Ur Specific [place] 1.013 (1.001-1.035) Urine Protein Negative (Negative) Urine Glucose (UA) Negative (Negative) Urine Ketones Negative (Negative) Urine Blood Negative (Negative) Urine Nitrite Negative (Negative) Urine Bilirubin Negative (Negative) Urine Urobilinogen <2.0 (<2.0) mg/dL Ur Leukocyte Esterase Negative (Negative) Urine HCG, Qual (Not Detectd) Stool Occult Blood (Negative) C. difficile (EIA) Intrp (Negative) - Radiology Data Radiology results: report reviewed, image reviewed Disposition Clinical Impression: Colitis Disposition: HOME SELF-CARE Condition: Good Instructions: Colitis (ED) Additional Instructions: Discontinue Bactrim. Take antibiotics as directed. Clear liquid diet for the next 2-3 days. Please follow up with primary care provider in 1-2 days. If any new symptom arises or symptoms worsen, return to ER as soon as possible. Prescriptions: metroNIDAZOLE [Flagyl] 500 mg PO Q8HR 10 Days Ondansetron Odt [Zofran Odt] 4 mg PO Q8HR PRN #12 tab PRN Reason: Nausea Ciprofloxacin HCl [Cipro] 500 mg PO Q12HR 10 Days Dicyclomine [Bentyl] 10 mg PO TID PRN #15 capsule PRN Reason: Pain Referrals: Jenelle Sherman MD [Primary Care Provider] - 1-2 days Time of Disposition: 03:46
[2016-09-10 01:25] LABS: Basophils # (A) 0.1 k/uL (0-0.2); Basophils % (A) 1 %; CH 30.1; CHCM 34.1; Eosinophils # (A) 0.1 k/uL (0-0.7); Eosinophils % (A) 1 %; HDW 2.65; Luc # (Auto) 0.26; Luc % (Auto) 2; Lymphocytes # (A) 2.7 k/uL (1.0-4.8); Lymphocytes % (A) 20 %; MCH 29.1 pg (25.0-35.0); MCHC 32.9 g/dL (31.0-37.0); MCV 88.5 fL (80.0-100.0); Mean Platelet Volume 8.3; Monocytes # (A) 0.6 k/uL (0-1.0); Monocytes % (A) 4 %; Neutrophils # (A) 9.8 k/uL (1.3-7.7); Neutrophils % (A) 73 %; RBC 4.29 m/uL (3.80-5.40); RDW 13.9 % (11.5-15.5); WBC 13.4 k/uL (3.8-10.6); WBC (Perox) 13.43
[2016-09-10 01:27] LABS: HGB 12.5 gm/dL (11.4-16.0)
[2016-09-10] MEDS ORDERED: ONDANSETRON 4 MG/2 ML VIAL IVP STA (01:31)
[2016-09-10 01:34] LABS: Prothrombin Time 10.4 sec (9.0-12.0)
[2016-09-10 01:37] LABS: Appearance,Urine Clear (Clear); Bilirubin,Urine Negative (Negative); Glucose,Urine (UA) Negative (Negative); Ketones,Urine Negative (Negative); Leukocyte Esterase,Urine Negative (Negative); Nitrite,Urine Negative (Negative); PH, Urine 6.5 (5.0-8.0); Protein,Urine Negative (Negative); Specific Gravity,Urine 1.013 (1.001-1.035); UA Billing (MACRO vs. MICRO) CHEM; Urobilinogen,Urine <2.0 mg/dL (<2.0)
[2016-09-10 01:40] LABS: Amylase 54 U/L (30-110); Anion Gap 12 mmol/L; Calcium 9.6 mg/dL (8.4-10.2); Carbon Dioxide 23 mmol/L (22-30); Chloride 103 mmol/L (98-107); Glucose 102 mg/dL (74-99); Non-African American GFR(MDRD) >60 (>60 ml/min/1.73 sqM); Sodium 138 mmol/L (137-145); Total Bilirubin 0.4 mg/dL (0.2-1.3); Total Protein 7.6 g/dL (6.3-8.2)
[2016-09-10 01:42] LABS: ALT 55 U/L (9-52); AST 29 U/L (14-36); Blood Urea Nitrogen 11 mg/dL (7-17); Potassium 5.1 mmol/L (3.5-5.1)
[2016-09-10 01:43] LABS: Alkaline Phosphatase 72 U/L (38-126)
[2016-09-10] MEDS ORDERED: RX INFO: IV CONTRAST WAS GIVEN 1 EACH MISC MISCELLANE PRN (02:17)
[2016-09-10 02:59] VITALS: PULSE 70
--- NOTE | 2016-09-10 03:29 | CT ---
EXAM: CT Abdomen and Pelvis With Intravenous Contrast CLINICAL HISTORY: Reason: Pain TECHNIQUE: Axial computed tomography images of the abdomen and pelvis with intravenous contrast. CTDI is 34.2 mGy and DLP is 1780.7 mGy-cm. Axial delayed images were obtained. CTDI is 40.1 mGy and DLP is 1273 mGy-cm. This CT exam was performed using one or more of the following dose reduction techniques: automated exposure control, adjustment of the mA and/or kV according to patient size, and/or use of iterative reconstruction technique. Coronal and sagittal reformatted images were created and reviewed. COMPARISON: CT dated 10/04/15 FINDINGS: Lower thorax: No acute findings. ABDOMEN: Liver: Fatty liver. Gallbladder and bile ducts: Unremarkable. No calcified stones. No ductal dilation. Pancreas: Unremarkable. No mass. No ductal dilation. Spleen: Unremarkable. No splenomegaly. Adrenals: Unremarkable. No mass. Kidneys and ureters: Unremarkable. No solid mass. No hydronephrosis. Stomach and bowel: Diffuse thickening of the colon concerning for colitis. Appendix: No findings to suggest acute appendicitis. PELVIS: Bladder: Unremarkable. No mass. Reproductive: Unremarkable as visualized. ABDOMEN and PELVIS: Intraperitoneal space: Unremarkable. No free air. No significant fluid collection. Bones/joints: No acute fracture. No dislocation. Soft tissues: Unremarkable. Vasculature: Unremarkable. No abdominal aortic aneurysm. Lymph nodes: Unremarkable. No enlarged lymph nodes. IMPRESSION: 1. Diffuse thickening of the colon concerning for colitis. 2. Fatty liver.
[2016-09-10] MEDS ORDERED: metroNIDAZOLE 500 MG TAB PO STA (03:53)
[2016-09-10] MEDS ORDERED: CIPROFLOXACIN HCL 500 MG TAB PO STA (03:53)
[2016-09-10 04:15] VITALS: BP 117/68; TEMP 98
== END 2016-09-10 04:16 | disposition home or self-care (01) ==
LOC: EC 21:58
DX: K52.9 Noninfective gastroenteritis and colitis, unspecified (principal); F31.9 Bipolar disorder, unspecified; G47.00 Insomnia, unspecified; F43.10 Post-traumatic stress disorder, unspecified; E07.9 Disorder of thyroid, unspecified; F17.200 Nicotine dependence, unspecified, uncomplicated; Z88.1 Allergy status to other antibiotic agents; Z88.8 Allergy status to other drugs, medicaments and biological substances; Z91.040 Latex allergy status; Z79.899 Other long term (current) drug therapy
CPT/HCPCS: 36415; 80053; 82150; 83690; 85025; 85610; 85730; 82272; 81003; 81025; 87324; 89055; 74177; 99284; 96374; 96375; 96361; J2270; J2405; Q9967

== ENCOUNTER 2016-09-10 12:43 | Inpatient (IN) | payer OTHER ==
[2016-09-10] MEDS ORDERED: ONDANSETRON 4 MG/2 ML VIAL IVP STA (13:34)
[2016-09-10] MEDS ORDERED: SODIUM CHLORIDE 0.9% 1,000 ML IV STA (13:34)
[2016-09-10] MEDS ORDERED: PIPERACILLIN-TAZOBACTAM 3.375 GM in DEXTROSE/WATER 1 50ML.BAG IVPB STA (13:34)
[2016-09-10] MEDS ORDERED: HYDROmorphone 1 MG/ML 1 ML SYRINGE IVP STA (13:34)
[2016-09-10] MEDS ORDERED: metroNIDAZOLE-NS PMX 500 MG in SALINE 1 100ML.BAG IVPB STA (13:38)
[2016-09-10] MEDS: SODIUM CHLORIDE 0.9% 1,000 ML IV STA ×3 (14:06→18:50)
[2016-09-10 14:27] LABS: Basophils % (A) 0 %; CH 29.2; CHCM 33.7; Eosinophils # (A) 0.1 k/uL (0-0.7); Eosinophils % (A) 1 %; HCT 37.1 % (34.0-46.0); HDW 2.66; HGB 12.6 gm/dL (11.4-16.0); Luc # (Auto) 0.23; Luc % (Auto) 2; Lymphocytes # (A) 1.8 k/uL (1.0-4.8); Lymphocytes % (A) 16 %; MCH 29.6 pg (25.0-35.0); Mean Platelet Volume 7.6; Monocytes # (A) 0.5 k/uL (0-1.0); Monocytes % (A) 4 %; Neutrophils # (A) 8.7 k/uL (1.3-7.7); Neutrophils % (A) 77 %; RBC 4.26 m/uL (3.80-5.40); RDW 13.1 % (11.5-15.5); WBC 11.3 k/uL (3.8-10.6); WBC (Perox) 11.51
--- NOTE | 2016-09-10 14:37 | ED ---
Abdominal Pain HPI - General Chief Complaint: Abdominal Pain Stated Complaint: Vomiting, rectal bleeding Time Seen by Provider: 09/10/16 13:08 Source: patient Mode of arrival: ambulatory Limitations: no limitations - History of Present Illness Initial Comments: 25 years old female was seen in ER last night she had quite extensive workup done including CBC, compressive metabolic panel and she gets the CT of the abdomen and pelvis, abdominal CT confirmed colitis. She was given Cipro Flagyl. She comes back pain is worse she hasn't even filled the prescription. She is afebrile blood pressure is bit elevated and she stating pain is 10 over 10. She denies any headaches no migraines no chest pain abdominal pain is diffused no frequency urgency dysuria no sinus symptoms of TIA or CVA - Related Data Home Medications Medication Instructions Recorded Confirmed Norgestimate-Ethinyl Estradiol 1 tab PO QAM 12/22/13 09/10/16 [Mononessa 28 Tablet] Sertraline [Zoloft] 100 mg PO HS 10/24/14 09/10/16 Levothyroxine Sodium [Synthroid] 50 mcg PO QAM 03/10/15 09/10/16 traZODone HCL 100 mg PO HS 10/04/15 09/10/16 Albuterol Inhaler [Ventolin Hfa 2 puff INHALATION RT-Q6H PRN 10/24/15 09/10/16 Inhaler] OXcarbazepine 600 mg PO DAILY 10/24/15 09/10/16 Gabapentin [Neurontin] 300 mg PO BID 05/27/16 09/10/16 QUEtiapine FUMARATE [SEROquel] 300 mg PO HS 08/31/16 09/10/16 Acetaminophen [Tylenol] 325 mg PO Q4H PRN 09/01/16 09/10/16 Ibuprofen [Motrin] 200 mg PO Q6HR PRN 09/01/16 09/10/16 Previous Rx's Medication Instructions Recorded Sulfamethox-Tmp 800-160Mg [Bactrim 1 tab PO Q12HR #14 tab 09/06/16 DS 800-160 mg] Ciprofloxacin HCl [Cipro] 500 mg PO Q12HR 10 Days 09/10/16 Dicyclomine [Bentyl] 10 mg PO TID PRN #15 capsule 09/10/16 Ondansetron Odt [Zofran Odt] 4 mg PO Q8HR PRN #12 tab 09/10/16 metroNIDAZOLE [Flagyl] 500 mg PO Q8HR 10 Days 09/10/16 Allergies Allergy/AdvReac Type Severity Reaction Status Date / Time ceftriaxone sodium Allergy Rash/Hives Verified 09/10/16 15:03 [From Rocephin] latex Allergy Rash/Hives Verified 09/10/16 15:03 bupropion HCl AdvReac Hallucinati Verified 09/10/16 15:03 [From Wellbutrin] ons Review of Systems ROS Statement: Those systems with pertinent positive or pertinent negative responses have been documented in the HPI. ROS Other: All systems not noted in ROS Statement are negative. Past Medical History Past Medical History: Asthma, Thyroid Disorder Additional Past Medical History / Comment(s): INSOMNIA; BODERLINE PERSONALITY DISORDER, back pain hx of syncope, MURMUR CHILD,BRONCHITIS,CARPAL TUNNEL, ARHTIRITS,UTI'S, MIGRAINES. colitis History of Any Multi-Drug Resistant Organisms: MRSA Date of last positivie culture/infection: 04/30/16 MDRO Source:: LIP Past Surgical History: Adenoidectomy, Tonsillectomy Additional Past Surgical History / Comment(s): teeth pulled. SEVERAL AREAS ON BODY HAD i&D FROM AREAS WITH MRSA Past Anesthesia/Blood Transfusion Reactions: No Reported Reaction Additional Past Anesthesia/Blood Transfusion Reaction / Comment(s): CLAUSTERPHOBIA Past Psychological History: Bipolar, PTSD Smoking Status: Current every day smoker Past Alcohol Use History: Occasional Past Drug Use History: Marijuana - Past Family History Mother Family Medical History: Myocardial Infarction ([place]) Additional Family Medical History / Comment(s): AT AGE 45 FROM [place] Father Additional Family Medical History / Comment(s): WHEN PT WAS 9 MONTHS OLD FROM A BRAIN ANUERYSM General Exam - General Exam Comments Initial Comments: General: The patient is awake and alert, in severe distress abdominal pain is 10 over 10 Skin: Skin is warm and dry and no rashes or lesions are noted. Eye: Pupils are equal, round and reactive to light, extra-ocular movements are intact; there is normal conjunctiva bilaterally. Ears, nose, mouth and throat: There are moist mucous membranes and no oral lesions. Neck: The neck is supple, there is no tenderness or JVD. Cardiovascular: There is a regular rate and rhythm. No murmur, rub or gallop is appreciated. Respiratory: To auscultation bilateral, no wheezing no rhonchi no distress respiratory elizabeth noticed Gastrointestinal: Abdomen is diffusely tender, positive bowel sounds no guarding no rebound Back: There is no tenderness to palpation in the midline. There is no obvious deformity. Musculoskeletal: Normal ROM, no tenderness, There is no pedal edema. There is no calf tenderness or swelling. No cords were appreciated. Neurological: CN II-XII intact, Cranial nerves III through XII are intact. There are no obvious motor or sensory deficits. Coordination appears grossly intact. Speech is normal. Psychiatric: Cooperative, appropriate mood & affect, normal judgment. Limitations: no limitations Course Vital Signs 09/10/16 12:49 Temperature 98.3 F Pulse Rate 68 Respiratory 18 Rate Blood Pressure 157/82 O2 Sat by Pulse 98 Oximetry [facility] had a CAT scan of the abdomen yesterday, CBC, CMP. We repeated the hemoglobin hemoglobin yesterday was 12.5 today's record 0.6 considering her pain I discussed with Dr. Sherman he agreed with the admission for the IV antibiotics and pain control considering she was in excruciating pain when she came in - Reevaluation(s) Reevaluation #1: 09/10/16 14:58 she failed the outpatient therapy 09/10/16 15:15 Her labs showed today was unremarkable including CBC, compressive metabolic panel, urinalysis Medical Decision Making - Lab Data Result diagrams: 09/10/16 14:00 09/10/16 14:00 Lab Results 09/10/16 09/10/16 Range/Units 14:00 14:00 WBC 11.3 H (3.8-10.6) k/uL RBC 4.26 (3.80-5.40) m/uL Hgb 12.6 (11.4-16.0) gm/dL Hct 37.1 (34.0-46.0) % MCV 87.0 (80.0-100.0) fL MCH 29.6 (25.0-35.0) pg MCHC 34.0 (31.0-37.0) g/dL RDW 13.1 (11.5-15.5) % Plt Count 378 (150-450) k/uL Neutrophils % 77 % Lymphocytes % 16 % Monocytes % 4 % Eosinophils % 1 % Basophils % 0 % Neutrophils # 8.7 H (1.3-7.7) k/uL Lymphocytes # 1.8 (1.0-4.8) k/uL Monocytes # 0.5 (0-1.0) k/uL Eosinophils # 0.1 (0-0.7) k/uL Basophils # 0.0 (0-0.2) k/uL Sodium 138 (137-145) mmol/L Potassium 4.8 (3.5-5.1) mmol/L Chloride 104 (98-107) mmol/L Carbon Dioxide 23 (22-30) mmol/L Anion Gap 11 mmol/L BUN 9 (7-17) mg/dL Creatinine 0.70 (0.52-1.04) mg/dL Est GFR (MDRD) Af Amer >60 (>60 ml/min/1.73 sqM) Est GFR (MDRD) Non-Af >60 (>60 ml/min/1.73 sqM) Glucose 96 (74-99) mg/dL Calcium 8.8 (8.4-10.2) mg/dL Total Bilirubin 0.4 (0.2-1.3) mg/dL AST 28 (14-36) U/L ALT 49 (9-52) U/L Alkaline Phosphatase 65 (38-126) U/L C-Reactive Protein 21.2 H (<10.0) mg/L Total Protein 7.0 (6.3-8.2) g/dL Albumin 3.9 (3.5-5.0) g/dL Amylase 57 (30-110) U/L Lipase 90 (23-300) U/L Disposition Clinical Impression: Abdominal pain, Colitis Disposition: ADMITTED IP TO THIS HOSP Condition: Good
[2016-09-10 14:43] LABS: ALT 49 U/L (9-52); AST 28 U/L (14-36); Alkaline Phosphatase 65 U/L (38-126); Amylase 57 U/L (30-110); Anion Gap 11 mmol/L; Blood Urea Nitrogen 9 mg/dL (7-17); C Reactive Protein 21.2 mg/L (<10.0); Calcium 8.8 mg/dL (8.4-10.2); Carbon Dioxide 23 mmol/L (22-30); Chloride 104 mmol/L (98-107); Glucose 96 mg/dL (74-99); Non-African American GFR(MDRD) >60 (>60 ml/min/1.73 sqM); Potassium 4.8 mmol/L (3.5-5.1); Sodium 138 mmol/L (137-145); Total Bilirubin 0.4 mg/dL (0.2-1.3)
[2016-09-10] MEDS ORDERED: SODIUM CHLORIDE 0.9% 1,000 ML IV ONE (14:46)
--- NOTE | 2016-09-10 15:01 | XR ---
EXAMINATION TYPE: XR chest 1V portable DATE OF EXAM: 09/10/2016 COMPARISON: Chest x-ray March 24, 2013 HISTORY: Chest and right-sided rib pain after fall injury today TECHNIQUE: Single frontal view of the chest is obtained. FINDINGS: Entire right lower lateral ribs are not included. There is no focal air space opacity, pleu ral effusion, or pneumothorax seen. The cardiac silhouette size is within normal limits. The visua lized osseous structures are intact. IMPRESSION: No acute process.
--- NOTE | 2016-09-10 15:03 | XR ---
EXAMINATION TYPE: XR KUB DATE OF EXAM: 09/10/2016 2:57 PM CLINICAL HISTORY: Lower abdominal and right flank pain TECHNIQUE: Single supine KUB image of the abdomen is obtained. COMPARISON: CT abdomen and pelvis earlier today. FINDINGS: There is some paucity of bowel gas. Visualized gas is noted in nondistended small and large bowel loops. Spleen is upper limits of normal in size. No suspicious calcifications are seen. No pne umoperitoneum is noted. The lung bases are clear and the osseous structures are intact. IMPRESSION: Overall nonspecific but strongly favor nonobstructive bowel gas pattern. A colitis is suspected on re cent CT.
[2016-09-10 15:12] LABS: Appearance,Urine Clear (Clear); Bilirubin,Urine Negative (Negative); Glucose,Urine (UA) Negative (Negative); Ketones,Urine 2+ (Negative); Leukocyte Esterase,Urine Negative (Negative); Nitrite,Urine Negative (Negative); PH, Urine 6.5 (5.0-8.0); Protein,Urine Trace (Negative); Specific Gravity,Urine 1.021 (1.001-1.035); UA Billing (MACRO vs. MICRO) CHEM; Urobilinogen,Urine <2.0 mg/dL (<2.0)
[2016-09-10] MEDS ORDERED: ONDANSETRON 8 MG in SODIUM CHLORIDE 0.9% 50 ML IVPB ONE (15:17)
[2016-09-10] MEDS ORDERED: ACETAMINOPHEN TAB 325 MG TAB PO PRN (15:17)
[2016-09-10] MEDS ORDERED: ALBUTEROL NEBULIZED 2.5 MG/3 ML INHALATION PRN (15:17)
[2016-09-10] MEDS ORDERED: ONDANSETRON 4 MG/2 ML VIAL IVP ONE (15:30)
[2016-09-10] MEDS: DICYCLOMINE 10 MG CAP PO PRN (17:17)
[2016-09-10] MEDS ORDERED: CIPROFLOXACIN/DEXTROSE PMX 400 MG in DEXTROSE/WATER 1 200ML.BAG IVPB SCH (18:00)
[2016-09-10] MEDS: HYDROmorphone 1 MG/ML 1 ML SYRINGE IVP PRN ×2 (18:56→23:00)
[2016-09-10] MEDS: QUEtiapine 100 MG TAB PO SCH (21:11)
[2016-09-10] MEDS: SULFAMETHOX-TMP 800-160MG 1 EACH TAB PO SCH (21:11)
[2016-09-10] MEDS: traZODone HCL 100 MG TAB PO SCH (21:11)
[2016-09-10] MEDS: GABAPENTIN 300 MG CAP PO SCH (21:12)
[2016-09-10] MEDS: SERTRALINE 100 MG TAB PO SCH (21:12)
[2016-09-11] MEDS: metroNIDAZOLE-NS PMX 500 MG in SALINE 1 100ML.BAG IVPB SCH ×3 (00:05→15:37)
[2016-09-11] MEDS: HYDROmorphone 1 MG/ML 1 ML SYRINGE IVP PRN ×5 (02:52→20:11)
[2016-09-11] MEDS: LEVOTHYROXINE 50 MCG TAB PO SCH (06:34)
[2016-09-11] MEDS: SULFAMETHOX-TMP 800-160MG 1 EACH TAB PO SCH ×2 (07:52→20:22)
[2016-09-11] MEDS: GABAPENTIN 300 MG CAP PO SCH ×2 (07:52→20:21)
[2016-09-11] MEDS: OXcarbazepine 300 MG TAB PO SCH (07:53)
[2016-09-11] MEDS: ONDANSETRON 4 MG/2 ML VIAL IVP PRN ×2 (11:00→20:07)
[2016-09-11] MEDS: DICYCLOMINE 10 MG CAP PO PRN (11:32)
[2016-09-11] MEDS ORDERED: Magnesium Replacement Protocol 1 EACH MISC MISCELLANE PRN (13:37)
[2016-09-11] MEDS ORDERED: Potassium Replacement Protocol 1 EACH MISC MISCELLANE PRN (13:37)
--- NOTE | 2016-09-11 13:40 | P.HPIM ---
History of Present Illness H&P Date: 09/11/16 Chief Complaint: Diarrhea This is a 25-year-old female with past medical history noted below who presented to the hospital with worsening abdominal pain and diarrhea. Patient was recently discharged from the hospital after being treated for right ankle cellulitis. She was evaluated in the emergency room and computed tomography scan of the abdomen showed evidence of acute colitis. Patient was started on IV antibiotic and was admitted to the hospital for further evaluation. C. diff screen was positive this morning. Review of Systems Review of system: 14 points review of systems were obtained and were negative except to what were mentioned in the HPI. Past Medical History Past Medical History: Asthma, Thyroid Disorder Additional Past Medical History / Comment(s): INSOMNIA; BODERLINE PERSONALITY DISORDER, back pain hx of syncope, MURMUR CHILD,BRONCHITIS,CARPAL TUNNEL, ARHTIRITS,UTI'S, MIGRAINES."herniated disc neck/back" colitis History of Any Multi-Drug Resistant Organisms: MRSA Date of last positivie culture/infection: 04/30/16 MDRO Source:: LIP Past Surgical History: Adenoidectomy, Tonsillectomy Additional Past Surgical History / Comment(s): teeth pulled. SEVERAL AREAS ON BODY HAD i&D FROM AREAS WITH MRSA Past Anesthesia/Blood Transfusion Reactions: No Reported Reaction Additional Past Anesthesia/Blood Transfusion Reaction / Comment(s): CLAUSTERPHOBIA Smoking Status: Current every day smoker - Past Family History Mother Family Medical History: Myocardial Infarction ([place]) Additional Family Medical History / Comment(s): AT AGE 45 FROM [place] Father Additional Family Medical History / Comment(s): WHEN PT WAS 9 MONTHS OLD FROM A BRAIN ANUERYSM Medications and Allergies Home Medications Medication Instructions Recorded Confirmed Type Norgestimate-Ethinyl Estradiol 1 tab PO QAM 12/22/13 09/10/16 History [Mononessa 28 Tablet] Sertraline [Zoloft] 100 mg PO HS 10/24/14 09/10/16 History Levothyroxine Sodium [Synthroid] 50 mcg PO QAM 03/10/15 09/10/16 History traZODone HCL 100 mg PO HS 10/04/15 09/10/16 History Albuterol Inhaler [Ventolin Hfa 2 puff INHALATION RT-Q6H PRN 10/24/15 09/10/16 History Inhaler] OXcarbazepine 600 mg PO DAILY 10/24/15 09/10/16 History Gabapentin [Neurontin] 300 mg PO BID 05/27/16 09/10/16 History QUEtiapine FUMARATE [SEROquel] 300 mg PO HS 08/31/16 09/10/16 History Acetaminophen [Tylenol] 325 mg PO Q4H PRN 09/01/16 09/10/16 History Ibuprofen [Motrin] 200 mg PO Q6HR PRN 09/01/16 09/10/16 History Allergies Allergy/AdvReac Type Severity Reaction Status Date / Time ceftriaxone sodium Allergy Rash/Hives Verified 09/10/16 17:35 [From Rocephin] latex Allergy Rash/Hives Verified 09/10/16 17:35 bupropion HCl AdvReac Hallucinati Verified 09/10/16 17:35 [From Wellbutrin] ons Physical Exam Vitals: Vital Signs Temp Pulse Pulse Pulse Resp BP BP 09/11/16 11:09 97.6 F 73 24 113/68 09/11/16 08:00 97.7 F 77 16 125/69 09/11/16 00:05 97.7 F 66 16 129/72 09/10/16 17:09 98.0 F 68 16 134/69 09/10/16 17:00 68 09/10/16 15:31 97.9 F 78 16 114/55 Pulse Ox 09/11/16 11:09 97 09/11/16 08:00 95 09/11/16 00:05 98 09/10/16 17:09 98 09/10/16 17:00 09/10/16 15:31 95 Intake and Output 09/10/16 09/11/16 09/11/16 22:59 06:59 14:59 Intake Total 180 960 Output Total 100 Balance 80 960 Intake: Intake, IV Titration 960 Amount Sodium Chloride 0.9% 1, 960 000 ml @ 100 mls/hr IV . Q10H ONE Rx#:[id number] Oral 180 Output: Urine 100 Other: # Voids 2 1 # Bowel Movements 1 3 1 General: The patient is awake and alert, in no distress Eye: there is normal conjunctiva bilaterally. Neck: The neck is supple, there is no JVD. Cardiovascular: Normal S1-S2, no S3-S4, no murmurs. Respiratory: Lungs clear to auscultation bilaterally Gastrointestinal: Abdomen is soft, nontender Musculoskeletal: There is no pedal edema. Neurological:. Speech is normal. Skin: Skin is warm and dry Results CBC & Chem 7: 09/10/16 14:00 09/10/16 14:00 Labs: Abnormal Lab Results - Last 24 Hours (Table) 09/10/16 09/10/16 09/10/16 Range/Units 14:00 14:00 15:06 WBC 11.3 H (3.8-10.6) k/uL Neutrophils # 8.7 H (1.3-7.7) k/uL C-Reactive Protein 21.2 H (<10.0) mg/L Urine Protein Trace H (Negative) Urine Ketones 2+ H (Negative) C. difficile (EIA) Intrp (Negative) 09/10/16 Range/Units 17:45 WBC (3.8-10.6) k/uL Neutrophils # (1.3-7.7) k/uL C-Reactive Protein (<10.0) mg/L Urine Protein (Negative) Urine Ketones (Negative) C. difficile (EIA) Intrp Positive A (Negative) Assessment and Plan Plan: 1. Acute C. diff colitis: Continue IV Flagyl for now. Continue IV fluid hydration. Monitor clinical response closely. 2. Major depressive disorder 3. Underlying bipolar disorder 4. Tobacco abuse: Counseled to quit. Patient is not ready 5. Hypothyroidism Today, I reviewed her medication list and lab work results. Continue IV Flagyl 500 mg 3 times a day for now. If no clinical improvement today May switch antibiotic to oral vancomycin tomorrow. We will continue to count bowel movement for 24 hours. Patient was updated about her current clinical condition.
[2016-09-11 14:23] VITALS: BMI 47.2
[2016-09-11] MEDS: SODIUM CHLORIDE 0.9% 1,000 ML IV SCH (15:37)
[2016-09-11] MEDS: HEPARIN SODIUM,PORCINE 5,000 UNIT/ML 1 ML VIAL SQ SCH (20:21)
[2016-09-11] MEDS: QUEtiapine 100 MG TAB PO SCH (20:21)
[2016-09-11] MEDS: traZODone HCL 100 MG TAB PO SCH (20:22)
[2016-09-11] MEDS: SERTRALINE 100 MG TAB PO SCH (20:22)
[2016-09-12] MEDS: HYDROmorphone 1 MG/ML 1 ML SYRINGE IVP PRN ×3 (00:04→10:43)
[2016-09-12] MEDS: metroNIDAZOLE-NS PMX 500 MG in SALINE 1 100ML.BAG IVPB SCH ×2 (00:04→08:32)
[2016-09-12] MEDS: SODIUM CHLORIDE 0.9% 1,000 ML IV SCH ×2 (03:00→08:15)
[2016-09-12] MEDS: LEVOTHYROXINE 50 MCG TAB PO SCH (06:43)
[2016-09-12 07:50] LABS: Anion Gap 7 mmol/L; Blood Urea Nitrogen 6 mg/dL (7-17); Calcium 8.4 mg/dL (8.4-10.2); Carbon Dioxide 23 mmol/L (22-30); Chloride 109 mmol/L (98-107); Glucose 82 mg/dL (74-99); Magnesium 2.1 mg/dL (1.6-2.3); Non-African American GFR(MDRD) >60 (>60 ml/min/1.73 sqM); Potassium 4.1 mmol/L (3.5-5.1); Sodium 139 mmol/L (137-145)
[2016-09-12] MEDS: GABAPENTIN 300 MG CAP PO SCH (08:34)
[2016-09-12] MEDS: OXcarbazepine 300 MG TAB PO SCH (08:34)
[2016-09-12] MEDS: HEPARIN SODIUM,PORCINE 5,000 UNIT/ML 1 ML VIAL SQ SCH (08:34)
[2016-09-12] MEDS: SULFAMETHOX-TMP 800-160MG 1 EACH TAB PO SCH ×2 (08:35→08:37)
[2016-09-12 09:47] VITALS: BP 122/58; PULSE 72; RESP 16; TEMP 97.6
--- NOTE | 2016-09-12 11:13 | P.DS ---
Providers Date of admission: 09/10/16 14:46 Expected date of discharge: 09/12/16 Attending physician: Jenelle Sherman Primary care physician: Jenelle Sherman [facility] Course: 25-year-old female who presented to the hospital with abdominal pain, diarrhea, and bright red blood with her stool. She was found to have evidence of acute colitis on computed tomography scan. C. diff screen was positive. Patient's overall condition is improved significantly. She had 1 bowel movement over the last 24 hours. No blood noted in stool. She'll be discharged home in a stable condition. 1. Acute C. diff colitis: Continue Flagyl for 10 days. Encouraged oral hydration. 2. Major depressive disorder 3. Underlying bipolar disorder 4. Tobacco abuse: Counseled to quit. Patient is not ready 5. Hypothyroidism Patient Condition at Discharge: Good Plan - Discharge Summary New Discharge Prescriptions: No Action Norgestimate-Ethinyl Estradiol [Mononessa 28 Tablet] 1 tab PO QAM Sertraline [Zoloft] 100 mg PO HS Levothyroxine Sodium [Synthroid] 50 mcg PO QAM traZODone HCL 100 mg PO HS OXcarbazepine 600 mg PO DAILY Albuterol Inhaler [Ventolin Hfa Inhaler] 2 puff INHALATION RT-Q6H PRN PRN Reason: Shortness Of Breath Gabapentin [Neurontin] 300 mg PO BID QUEtiapine FUMARATE [SEROquel] 300 mg PO HS Ibuprofen [Motrin] 200 mg PO Q6HR PRN PRN Reason: Pain Acetaminophen [Tylenol] 325 mg PO Q4H PRN PRN Reason: Pain Sulfamethox-Tmp 800-160Mg [Bactrim DS 800-160 mg] 1 tab PO Q12HR #14 tab metroNIDAZOLE [Flagyl] 500 mg PO Q8HR 10 Days Ciprofloxacin HCl [Cipro] 500 mg PO Q12HR 10 Days Ondansetron Odt [Zofran Odt] 4 mg PO Q8HR PRN #12 tab PRN Reason: Nausea Dicyclomine [Bentyl] 10 mg PO TID PRN #15 capsule PRN Reason: Pain Discharge Medication List Norgestimate-Ethinyl Estradiol [Mononessa 28 Tablet] 1 tab PO QAM 12/22/13 [ History] Sertraline [Zoloft] 100 mg PO HS 10/24/14 [History] Levothyroxine Sodium [Synthroid] 50 mcg PO QAM 03/10/15 [History] traZODone HCL 100 mg PO HS 10/04/15 [History] Albuterol Inhaler [Ventolin Hfa Inhaler] 2 puff INHALATION RT-Q6H PRN 10/24/15 [ History] OXcarbazepine 600 mg PO DAILY 10/24/15 [History] Gabapentin [Neurontin] 300 mg PO BID 05/27/16 [History] QUEtiapine FUMARATE [SEROquel] 300 mg PO HS 08/31/16 [History] Acetaminophen [Tylenol] 325 mg PO Q4H PRN 09/01/16 [History] Ibuprofen [Motrin] 200 mg PO Q6HR PRN 09/01/16 [History] Sulfamethox-Tmp 800-160Mg [Bactrim DS 800-160 mg] 1 tab PO Q12HR #14 tab [Rx] Ciprofloxacin HCl [Cipro] 500 mg PO Q12HR 10 Days 09/10/16 [Rx] Dicyclomine [Bentyl] 10 mg PO TID PRN #15 capsule 09/10/16 [Rx] Ondansetron Odt [Zofran Odt] 4 mg PO Q8HR PRN #12 tab 09/10/16 [Rx] metroNIDAZOLE [Flagyl] 500 mg PO Q8HR 10 Days 09/10/16 [Rx] Follow up Appointment(s)/Referral(s): Jenelle Sherman MD [Primary Care Provider] - 1-2 days
== END 2016-09-12 12:08 | disposition home or self-care (01) | DRG 373 ==
LOC: EC 12:43 → 6PED 14:46
PROVIDERS: ADMIT Internal Medicine; ATTEND Internal Medicine
DX: A04.7 Enterocolitis due to Clostridium difficile (principal); E03.9 Hypothyroidism, unspecified; F31.9 Bipolar disorder, unspecified; J45.909 Unspecified asthma, uncomplicated; G47.00 Insomnia, unspecified; F60.3 Borderline personality disorder; M54.9 Dorsalgia, unspecified; G43.909 Migraine, unspecified, not intractable, without status migrainosus; M19.90 Unspecified osteoarthritis, unspecified site; F43.10 Post-traumatic stress disorder, unspecified; F17.200 Nicotine dependence, unspecified, uncomplicated; Z71.6 Tobacco abuse counseling; Z71.3 Dietary counseling and surveillance; Z86.79 Personal history of other diseases of the circulatory system; Z88.8 Allergy status to other drugs, medicaments and biological substances; Z86.19 Personal history of other infectious and parasitic diseases; Z87.19 Personal history of other diseases of the digestive system; Z86.14 Personal history of Methicillin resistant Staphylococcus aureus infection; Z82.49 Family history of ischemic heart disease and other diseases of the circulatory system; Z79.899 Other long term (current) drug therapy; Z87.440 Personal history of urinary (tract) infections; Z88.1 Allergy status to other antibiotic agents; Z91.040 Latex allergy status; Z82.0 Family history of epilepsy and other diseases of the nervous system; Z87.09 Personal history of other diseases of the respiratory system; Z87.39 Personal history of other diseases of the musculoskeletal system and connective tissue
CPT/HCPCS: 36415; 71010; 74000; 80048; 80053; 81003; 82150; 83690; 83735; 85025; 86140; 87324; 96361; 96365; 96375; 99285

== ENCOUNTER 2016-09-14 16:27 | Emergency (ER) | payer OTHER ==
[2016-09-14] MEDS ORDERED: ONDANSETRON 4 MG/2 ML VIAL IVP STA (18:04)
[2016-09-14] MEDS ORDERED: SODIUM CHLORIDE 0.9% 1,000 ML IV STA (18:04)
[2016-09-14] MEDS ORDERED: HYDROmorphone 1 MG/ML 1 ML SYRINGE IVP STA ×2 (18:05→19:22)
--- NOTE | 2016-09-14 18:14 | ED ---
Nausea/Vomiting/Diarrhea HPI - General Chief complaint: Nausea/Vomiting/Diarrhea Stated complaint: Fever, Nauseated Time Seen by Provider: 09/14/16 17:57 Source: patient Mode of arrival: ambulatory Limitations: no limitations - History of Present Illness Initial comments: 25-year-old female patient presents to emergency department today for complaints of lower abdominal cramping, diarrhea, and worsening cellulitis to her right ankle. Patient states she was discharged on Saturday after being admitted for colitis and testing positive for C. diff on 09/10/2016. Patient states that since Saturday she had been having normal more solid bowel movements, however this morning she started again having liquid stools, and did notice some blood streaking in the stool. Patient states she is also been feeling nauseated and did vomit one time today. Patient states that she is taking Cipro and Flagyl for the C. diff, and is taking Bactrim for treatment of the cellulitis. Patient states that prior to this last admission she was inpatient on 09/01/2016 for cellulitis to the right ankle failed outpatient treatment him a she states she had been taking antibiotics. states that when she was discharged from the hospital the redness to the ankle had resolved and seemed to be getting better. Patient states that today the area is more inflamed, the redness seems to be spreading. She states also that she has had fevers at home highest being 101.3. Patient has taken ibuprofen for this. Patient denies any hematemesis, head, neck, or back pain and she denies any chest pain, cough, shortness of breath, weakness, dizziness, urinary urgency, dysuria, hematuria, or urinary frequency. - Related Data Home Medications Medication Instructions Recorded Confirmed Norgestimate-Ethinyl Estradiol 1 tab PO QA 12/22/13 09/14/16 [Mononessa 28 Tablet] Sertraline [Zoloft] 100 mg PO HS 10/24/14 09/14/16 Levothyroxine Sodium [Synthroid] 50 mcg PO QAM 03/10/15 09/14/16 traZODone HCL 100 mg PO HS 10/04/15 09/14/16 OXcarbazepine 600 mg PO DAILY 10/24/15 09/14/16 Gabapentin [Neurontin] 300 mg PO BID 05/27/16 09/14/16 QUEtiapine FUMARATE [SEROquel] 300 mg PO HS 08/31/16 09/14/16 Acetaminophen [Tylenol] 325 mg PO Q4H PRN 09/01/16 09/14/16 Ibuprofen [Motrin] 200 mg PO Q6HR PRN 09/01/16 09/14/16 Sulfamethox-Tmp 800-160Mg [Bactrim 1 tab PO Q12HR 09/14/16 09/14/16 DS 800-160 mg] Previous Rx's Medication Instructions Recorded Ondansetron Odt [Zofran ODT] 4 mg PO Q8HR PRN #12 tab 09/10/16 metroNIDAZOLE [Flagyl] 500 mg PO TID #30 tab 09/12/16 Metoclopramide [Reglan] 10 mg PO Q8HR PRN #20 tab 09/14/16 Allergies Allergy/AdvReac Type Severity Reaction Status Date / Time ceftriaxone sodium Allergy Rash/Hives Verified 09/14/16 18:59 [From Rocephin] latex Allergy Rash/Hives Verified 09/14/16 18:59 bupropion HCl AdvReac Hallucinati Verified 09/14/16 18:59 [From Wellbutrin] ons Review of Systems ROS Statement: Those systems with pertinent positive or pertinent negative responses have been documented in the HPI. ROS Other: All systems not noted in ROS Statement are negative. Past Medical History Past Medical History: Asthma, Thyroid Disorder Additional Past Medical History / Comment(s): INSOMNIA; BODERLINE PERSONALITY DISORDER, back pain hx of syncope, MURMUR CHILD,BRONCHITIS,CARPAL TUNNEL, ARHTIRITS,UTI'S, MIGRAINES."herniated disc neck/back" colitis History of Any Multi-Drug Resistant Organisms: MRSA Date of last positivie culture/infection: 04/30/16 MDRO Source:: LIP Past Surgical History: Adenoidectomy, Tonsillectomy Additional Past Surgical History / Comment(s): teeth pulled. SEVERAL AREAS ON BODY HAD i&D FROM AREAS WITH MRSA Past Anesthesia/Blood Transfusion Reactions: No Reported Reaction Additional Past Anesthesia/Blood Transfusion Reaction / Comment(s): CLAUSTERPHOBIA Past Psychological History: Bipolar, PTSD Smoking Status: Current every day smoker Past Alcohol Use History: None Reported Past Drug Use History: None Reported - Past Family History Mother Family Medical History: Myocardial Infarction ([place]) Additional Family Medical History / Comment(s): AT AGE 45 FROM [place] Father Additional Family Medical History / Comment(s): WHEN PT WAS 9 MONTHS OLD FROM A BRAIN ANUERYSM General Exam Limitations: no limitations General appearance: alert, in no apparent distress, in distress (Mild distress) Eye exam: Present: normal appearance, PERRL, EOMI. Absent: scleral icterus, conjunctival injection, periorbital swelling ENT exam: Present: normal exam, mucous membranes moist Neck exam: Present: normal inspection. Absent: tenderness, meningismus, lymphadenopathy Respiratory exam: Present: normal lung sounds bilaterally. Absent: respiratory distress, wheezes, rales, rhonchi, stridor Cardiovascular Exam: Present: regular rate, normal rhythm, normal heart sounds. Absent: systolic murmur, diastolic murmur, rubs, gallop, clicks GI/Abdominal exam: Present: soft, tenderness (Lower abdominal tenderness), normal bowel sounds. Absent: distended, guarding, rebound, rigid Extremities exam: Present: normal inspection, full ROM, normal capillary refill. Absent: tenderness, pedal edema, joint swelling, calf tenderness Back exam: Present: normal inspection Neurological exam: Present: alert, oriented X3, CN II-XII intact Psychiatric exam: Present: normal affect, normal mood Skin exam: Present: warm, dry, intact, normal color. Absent: rash Course Vital Signs 09/14/16 09/14/16 09/14/16 16:58 19:02 20:10 Temperature 98.4 F 98.5 F Pulse Rate 83 79 66 Respiratory 16 20 18 Rate Blood Pressure 122/59 136/75 130/58 O2 Sat by Pulse 99 98 100 Oximetry Medical Decision Making - Medical Decision Making 25-year-old female patient presented to emergency department today for evaluation of diarrhea and cellulitis to the right ankle. Patient recently had been admitted and placed on treatment for C. diff colitis and cellulitis of the right ankle. Lab work was performed and was within normal limits. Patient was feeling markedly better after receiving IV fluids and pain medication here in emergency department patient does have Flagyl, Cipro, and Bactrim home for treatment of cellulitis and the C. diff. Patient feels comfortable being discharged home at this time to continue with outpatient care. Discussed the case with Dr. Mcallister who also agreed to this plan. Patient instructed to follow up with her primary care physician as well as infectious disease the next 1-2 days for recheck. Patient instructed to return for any new, worsening , or concerning symptoms. - Lab Data Result diagrams: 09/14/16 18:10 09/14/16 18:10 Lab Results 09/14/16 09/14/16 09/14/16 Range/Units 18:10 18:10 18:10 WBC 8.4 (3.8-10.6) k/uL RBC 4.26 (3.80-5.40) m/uL Hgb 12.6 (11.4-16.0) gm/dL Hct 38.0 (34.0-46.0) % MCV 89.1 (80.0-100.0) fL MCH 29.6 (25.0-35.0) pg MCHC 33.2 (31.0-37.0) g/dL RDW 14.3 (11.5-15.5) % Plt Count 325 (150-450) k/uL Neutrophils % 36 % Lymphocytes % 49 % Monocytes % 6 % Eosinophils % 3 % Basophils % 1 % Neutrophils # 3.0 (1.3-7.7) k/uL Lymphocytes # 4.1 (1.0-4.8) k/uL Monocytes # 0.5 (0-1.0) k/uL Eosinophils # 0.2 (0-0.7) k/uL Basophils # 0.1 (0-0.2) k/uL Manual Slide Review Performed Reactive Lymphocytes Present Large Platelets Present RBC Morphology Normal Sodium 140 (137-145) mmol/L Potassium 4.3 (3.5-5.1) mmol/L Chloride 107 (98-107) mmol/L Carbon Dioxide 21 L (22-30) mmol/L Anion Gap 12 mmol/L BUN 7 (7-17) mg/dL Creatinine 0.69 (0.52-1.04) mg/dL Est GFR (MDRD) Af Amer >60 (>60 ml/min/1.73 sqM) Est GFR (MDRD) Non-Af >60 (>60 ml/min/1.73 sqM) Glucose 75 (74-99) mg/dL Calcium 9.0 (8.4-10.2) mg/dL Total Bilirubin 0.2 (0.2-1.3) mg/dL AST 43 H (14-36) U/L ALT 95 H (9-52) U/L Alkaline Phosphatase 56 (38-126) U/L Total Protein 7.1 (6.3-8.2) g/dL Albumin 4.1 (3.5-5.0) g/dL Amylase 55 (30-110) U/L Lipase 205 (23-300) U/L Urine Color Yellow Urine Appearance Clear (Clear) Urine pH 6.5 (5.0-8.0) Ur Specific [place] 1.015 (1.001-1.035) Urine Protein Negative (Negative) Urine Glucose (UA) Negative (Negative) Urine Ketones Negative (Negative) Urine Blood Small H (Negative) Urine Nitrite Negative (Negative) Urine Bilirubin Negative (Negative) Urine Urobilinogen <2.0 (<2.0) mg/dL Ur Leukocyte Esterase Negative (Negative) Urine RBC 1 (0-5) /hpf Urine WBC 1 (0-5) /hpf Ur Squamous Epith Cells 1 (0-4) /hpf Urine Mucus Rare H (None) /hpf - Radiology Data Radiology results: report reviewed, image reviewed Two-view x-ray of the abdomen reveals normal bowel gas pattern. There is no sign of intestinal obstruction pneumoperitoneum. Fecal pattern is normal. There is no sign of a mass. Impression by Dr. Nuñez reveals non-acute abdomen. No change. Disposition Clinical Impression: Clostridium difficile colitis, Nausea & vomiting, Cellulitis Disposition: HOME SELF-CARE Condition: Good Instructions: Cellulitis (ED), Acute Nausea and Vomiting (ED), Colitis (ED) Additional Instructions: Complete antibiotic prescriptions. Increase fluid intake. Follow up with primary care physician and infectious disease in 1-2 days for recheck. Return for any new, worsening, or concerning symptoms. Prescriptions: Metoclopramide [Reglan] 10 mg PO Q8HR PRN #20 tab PRN Reason: nausea/vomiting Referrals: Jenelle Sherman MD [Primary Care Provider] - 1-2 days Time of Disposition: 20:28
[2016-09-14 18:40] LABS: Aty Lym Flag Slight; Basophils # (A) 0.1 k/uL (0-0.2); Basophils % (A) 1 %; CH 29.8; CHCM 33.6; Eosinophils # (A) 0.2 k/uL (0-0.7); Eosinophils % (A) 3 %; HDW 2.71; HGB 12.6 gm/dL (11.4-16.0); Luc # (Auto) 0.43; Luc % (Auto) 5; Lymphocytes # (A) 4.1 k/uL (1.0-4.8); Lymphocytes % (A) 49 %; MCH 29.6 pg (25.0-35.0); MCHC 33.2 g/dL (31.0-37.0); MCV 89.1 fL (80.0-100.0); Mean Platelet Volume 8.9; Monocytes # (A) 0.5 k/uL (0-1.0); Monocytes % (A) 6 %; Neutrophils % (A) 36 %; RBC 4.26 m/uL (3.80-5.40); RDW 14.3 % (11.5-15.5); WBC 8.4 k/uL (3.8-10.6)
[2016-09-14 18:45] LABS: ALT 95 U/L (9-52); AST 43 U/L (14-36); Alkaline Phosphatase 56 U/L (38-126); Amylase 55 U/L (30-110); Anion Gap 12 mmol/L; Blood Urea Nitrogen 7 mg/dL (7-17); Carbon Dioxide 21 mmol/L (22-30); Chloride 107 mmol/L (98-107); Glucose 75 mg/dL (74-99); Non-African American GFR(MDRD) >60 (>60 ml/min/1.73 sqM); Potassium 4.3 mmol/L (3.5-5.1); Sodium 140 mmol/L (137-145); Total Bilirubin 0.2 mg/dL (0.2-1.3); Total Protein 7.1 g/dL (6.3-8.2)
[2016-09-14 18:51] LABS: Appearance,Urine Clear (Clear); Bilirubin,Urine Negative (Negative); Glucose,Urine (UA) Negative (Negative); Ketones,Urine Negative (Negative); Leukocyte Esterase,Urine Negative (Negative); Mucus,Urine Rare /hpf; Nitrite,Urine Negative (Negative); PH, Urine 6.5 (5.0-8.0); Particle Count 1399; Protein,Urine Negative (Negative); RBC,Urine 1 /hpf (0-5); Specific Gravity,Urine 1.015 (1.001-1.035); Squamous Epithelial Cell,Urine 1 /hpf (0-4); UA Billing (MACRO vs. MICRO) MICRO; Urobilinogen,Urine <2.0 mg/dL (<2.0); WBC,Urine 1 /hpf (0-5)
--- NOTE | 2016-09-14 19:02 | XR ---
EXAMINATION TYPE: XR KUB DATE OF EXAM: 09/14/2016 COMPARISON: 09/10/2016 HISTORY: Fever and nausea TECHNIQUE: 2 views FINDINGS: Bowel gas pattern is normal. There is no sign of intestinal obstruction or pneumoperitoneum . Fecal pattern is normal. There is no sign of a mass. IMPRESSION: Nonacute abdomen. No change.
[2016-09-14 19:18] LABS: Large Platelets Present; Manual Review Performed; Reactive Lymphocytes Present
[2016-09-14 19:19] LABS: RBC Morphology Normal
[2016-09-14 20:11] VITALS: BP 130/58; PULSE 66; RESP 18; TEMP 98.5
== END 2016-09-14 20:42 | disposition home or self-care (01) ==
LOC: EC 16:27
DX: A04.7 Enterocolitis due to Clostridium difficile (principal); R11.2 Nausea with vomiting, unspecified; L03.115 Cellulitis of right lower limb; J45.909 Unspecified asthma, uncomplicated; E07.9 Disorder of thyroid, unspecified; G47.00 Insomnia, unspecified; F31.9 Bipolar disorder, unspecified; F43.10 Post-traumatic stress disorder, unspecified; F60.3 Borderline personality disorder; F17.200 Nicotine dependence, unspecified, uncomplicated; Z79.3 Long term (current) use of hormonal contraceptives; Z79.899 Other long term (current) drug therapy; Z91.040 Latex allergy status; Z88.8 Allergy status to other drugs, medicaments and biological substances; Z88.1 Allergy status to other antibiotic agents
CPT/HCPCS: 99284; 96374; 96375; 96376; 96361; 36415; 80053; 82150; 83690; 85025; 81001; 87040; 74000; J2405; J1170

== ENCOUNTER 2016-09-26 16:19 | Emergency (ER) | payer OTHER ==
[2016-09-26 16:55] VITALS: RESP 18
[2016-09-26] MEDS ORDERED: SODIUM CHLORIDE 0.9% 1,000 ML IV STA (17:07)
[2016-09-26] MEDS ORDERED: diphenhydrAMINE 50 MG/ML 1 ML VIAL IVP STA (17:07)
[2016-09-26] MEDS ORDERED: ONDANSETRON 4 MG/2 ML VIAL IVP STA (17:07)
[2016-09-26] MEDS ORDERED: FAMOTIDINE 20 MG/2 ML VIAL IV STA (17:09)
--- NOTE | 2016-09-26 17:15 | ED ---
Nausea/Vomiting/Diarrhea HPI - General Chief complaint: Nausea/Vomiting/Diarrhea Stated complaint: Infection on Foot/Abd Pain Time Seen by Provider: 09/26/16 17:06 Source: patient, RN notes reviewed Mode of arrival: wheelchair Limitations: no limitations - History of Present Illness Initial comments: Is a 25-year-old female presents emergency Department chief complaint nausea and diarrhea. Patient states her symptoms started yesterday. Patient has had multiple ER visits for similar issues. Patient was diagnosed with colitis and states that she went to a course of treatment for C. diff. Patient states that had resolved. Patient states that she's had no fever no chills she complains of some mild abdominal discomfort denies any hematemesis, coffee-ground emesis, melena or hematochezia. Patient denies fever, chills, chest pain or shortness of breath. Patient states she saw her physician 2 days ago. - Related Data Home Medications Medication Instructions Recorded Confirmed Norgestimate-Ethinyl Estradiol 1 tab PO QAM 12/22/13 09/26/16 [Mononessa 28 Tablet] Sertraline [Zoloft] 100 mg PO HS 10/24/14 09/26/16 Levothyroxine Sodium [Synthroid] 50 mcg PO QAM 03/10/15 09/26/16 traZODone HCL 100 mg PO HS 10/04/15 09/26/16 OXcarbazepine 600 mg PO DAILY 10/24/15 09/26/16 Gabapentin [Neurontin] 300 mg PO BID 05/27/16 09/26/16 QUEtiapine FUMARATE [SEROquel] 300 mg PO HS 08/31/16 09/26/16 Acetaminophen [Tylenol] 325 mg PO Q4H PRN 09/01/16 09/26/16 Ibuprofen [Motrin] 200 mg PO Q6HR PRN 09/01/16 09/26/16 Previous Rx's Medication Instructions Recorded Metoclopramide [Reglan] 10 mg PO Q8HR PRN #20 tab 09/14/16 Dicyclomine [Bentyl] 20 mg PO TID #30 tablet 09/26/16 Ondansetron Odt [Zofran Odt] 4 mg PO Q8HR PRN #10 tab 09/26/16 Ranitidine HCl [Zantac] 150 mg PO BID #28 tab 09/26/16 Allergies Allergy/AdvReac Type Severity Reaction Status Date / Time ceftriaxone sodium Allergy Rash/Hives Verified 09/26/16 17:46 [From Rocephin] latex Allergy Rash/Hives Verified 09/26/16 17:46 bupropion HCl AdvReac Hallucinati Verified 09/26/16 17:46 [From Wellbutrin] ons Review of Systems ROS Statement: Those systems with pertinent positive or pertinent negative responses have been documented in the HPI. ROS Other: All systems not noted in ROS Statement are negative. Past Medical History Past Medical History: Asthma, Thyroid Disorder Additional Past Medical History / Comment(s): INSOMNIA; BODERLINE PERSONALITY DISORDER, back pain hx of syncope, MURMUR CHILD,BRONCHITIS,CARPAL TUNNEL, ARHTIRITS,UTI'S, MIGRAINES."herniated disc neck/back" colitis History of Any Multi-Drug Resistant Organisms: C-DIFF, MRSA Date of last positivie culture/infection: 09/14/2016 MDRO Source:: LIP Past Surgical History: Adenoidectomy, Tonsillectomy Additional Past Surgical History / Comment(s): teeth pulled. SEVERAL AREAS ON BODY HAD i&D FROM AREAS WITH MRSA Past Anesthesia/Blood Transfusion Reactions: No Reported Reaction Additional Past Anesthesia/Blood Transfusion Reaction / Comment(s): CLAUSTERPHOBIA Past Psychological History: Bipolar, PTSD Smoking Status: Current every day smoker Past Alcohol Use History: None Reported Past Drug Use History: None Reported - Past Family History Mother Family Medical History: Myocardial Infarction ([place]) Additional Family Medical History / Comment(s): AT AGE 45 FROM [place] Father Additional Family Medical History / Comment(s): WHEN PT WAS 9 MONTHS OLD FROM A BRAIN ANUERYSM General Exam Limitations: no limitations General appearance: alert, in no apparent distress, obese Head exam: Present: atraumatic, normocephalic, normal inspection Neck exam: Present: normal inspection. Absent: tenderness, meningismus, lymphadenopathy Respiratory exam: Present: normal lung sounds bilaterally. Absent: respiratory distress, wheezes, rales, rhonchi, stridor Cardiovascular Exam: Present: regular rate, normal rhythm, normal heart sounds. Absent: systolic murmur, diastolic murmur, rubs, gallop, clicks GI/Abdominal exam: Present: soft, tenderness (Mild diffuse), normal bowel sounds. Absent: distended, guarding, rebound, rigid Back exam: Absent: CVA tenderness (R), CVA tenderness (L) Skin exam: Present: warm, dry Course Vital Signs 09/26/16 16:52 Temperature 98.4 F Pulse Rate 76 Respiratory 18 Rate Blood Pressure 146/85 O2 Sat by Pulse 96 Oximetry Medical Decision Making - Medical Decision Making 25-year-old female presents emergency department for nausea vomiting in an episode of diarrhea. Patient's lab work within normal limits. Patient has tolerated fluids here. Patient be discharged on Bentyl, Zofran and follow-up with GI. - Lab Data Result diagrams: 09/26/16 17:43 09/26/16 17:43 Lab Results 09/26/16 09/26/16 09/26/16 Range/Units 17:43 17:43 17:43 WBC 6.7 (3.8-10.6) k/uL RBC 4.30 (3.80-5.40) m/uL Hgb 12.5 (11.4-16.0) gm/dL Hct 38.9 (34.0-46.0) % MCV 90.4 (80.0-100.0) fL MCH 29.1 (25.0-35.0) pg MCHC 32.2 (31.0-37.0) g/dL RDW 14.4 (11.5-15.5) % Plt Count 236 (150-450) k/uL Neutrophils % 32 % Lymphocytes % 53 % Monocytes % 6 % Eosinophils % 4 % Basophils % 1 % Neutrophils # 2.2 (1.3-7.7) k/uL Lymphocytes # 3.5 (1.0-4.8) k/uL Monocytes # 0.4 (0-1.0) k/uL Eosinophils # 0.3 (0-0.7) k/uL Basophils # 0.1 (0-0.2) k/uL Sodium 139 (137-145) mmol/L Potassium 4.1 (3.5-5.1) mmol/L Chloride 106 (98-107) mmol/L Carbon Dioxide 24 (22-30) mmol/L Anion Gap 9 mmol/L BUN 10 (7-17) mg/dL Creatinine 0.67 (0.52-1.04) mg/dL Est GFR (MDRD) Af Amer >60 (>60 ml/min/1.73 sqM) Est GFR (MDRD) Non-Af >60 (>60 ml/min/1.73 sqM) Glucose 71 L (74-99) mg/dL Calcium 9.5 (8.4-10.2) mg/dL Total Bilirubin 0.2 (0.2-1.3) mg/dL AST 18 (14-36) U/L ALT 35 (9-52) U/L Alkaline Phosphatase 52 (38-126) U/L Total Protein 7.2 (6.3-8.2) g/dL Albumin 4.2 (3.5-5.0) g/dL Amylase 41 (30-110) U/L Lipase 119 (23-300) U/L Urine Color Yellow Urine Appearance Clear (Clear) Urine pH 5.0 (5.0-8.0) Ur Specific Bazine 1.019 (1.001-1.035) Urine Protein Negative (Negative) Urine Glucose (UA) Negative (Negative) Urine Ketones Negative (Negative) Urine Blood Moderate H (Negative) Urine Nitrite Negative (Negative) Urine Bilirubin Negative (Negative) Urine Urobilinogen <2.0 (<2.0) mg/dL Ur Leukocyte Esterase Negative (Negative) Urine RBC 5 (0-5) /hpf Urine WBC 2 (0-5) /hpf Ur Squamous Epith Cells 2 (0-4) /hpf Amorphous Sediment Rare H (None) /hpf Urine Mucus Rare H (None) /hpf Urine HCG, Qual (Not Detectd) 09/26/16 Range/Units 17:43 WBC (3.8-10.6) k/uL RBC (3.80-5.40) m/uL Hgb (11.4-16.0) gm/dL Hct (34.0-46.0) % MCV (80.0-100.0) fL MCH (25.0-35.0) pg MCHC (31.0-37.0) g/dL RDW (11.5-15.5) % Plt Count (150-450) k/uL Neutrophils % % Lymphocytes % % Monocytes % % Eosinophils % % Basophils % % Neutrophils # (1.3-7.7) k/uL Lymphocytes # (1.0-4.8) k/uL Monocytes # (0-1.0) k/uL Eosinophils # (0-0.7) k/uL Basophils # (0-0.2) k/uL Sodium (137-145) mmol/L Potassium (3.5-5.1) mmol/L Chloride (98-107) mmol/L Carbon Dioxide (22-30) mmol/L Anion Gap mmol/L BUN (7-17) mg/dL Creatinine (0.52-1.04) mg/dL Est GFR (MDRD) Af Amer (>60 ml/min/1.73 sqM) Est GFR (MDRD) Non-Af (>60 ml/min/1.73 sqM) Glucose (74-99) mg/dL Calcium (8.4-10.2) mg/dL Total Bilirubin (0.2-1.3) mg/dL AST (14-36) U/L ALT (9-52) U/L Alkaline Phosphatase (38-126) U/L Total Protein (6.3-8.2) g/dL Albumin (3.5-5.0) g/dL Amylase (30-110) U/L Lipase (23-300) U/L Urine Color Urine Appearance (Clear) Urine pH (5.0-8.0) Ur Specific Bazine (1.001-1.035) Urine Protein (Negative) Urine Glucose (UA) (Negative) Urine Ketones (Negative) Urine Blood (Negative) Urine Nitrite (Negative) Urine Bilirubin (Negative) Urine Urobilinogen (<2.0) mg/dL Ur Leukocyte Esterase (Negative) Urine RBC (0-5) /hpf Urine WBC (0-5) /hpf Ur Squamous Epith Cells (0-4) /hpf Amorphous Sediment (None) /hpf Urine Mucus (None) /hpf Urine HCG, Qual Not Detected (Not Detectd) Disposition Clinical Impression: Nausea & vomiting, Abdominal pain Disposition: HOME SELF-CARE Condition: Stable Instructions: Acute Nausea and Vomiting (ED), Abdominal Pain (ED) Additional Instructions: Please return to the Emergency Department if symptoms worsen or any other concerns. Prescriptions: Dicyclomine [Bentyl] 20 mg PO TID #30 tablet Ondansetron Odt [Zofran Odt] 4 mg PO Q8HR PRN #10 tab PRN Reason: Nausea Ranitidine HCl [Zantac] 150 mg PO BID #28 tab Referrals: Alsayegh,Roofan, MD [Primary Care Provider] - 1-2 days Yocasta Nicole MD [STAFF PHYSICIAN] - 1-2 days Time of Disposition: 18:39
[2016-09-26 18:02] LABS: Amorphous Sediment,Urine Rare /hpf; Appearance,Urine Clear (Clear); Bilirubin,Urine Negative (Negative); Glucose,Urine (UA) Negative (Negative); Ketones,Urine Negative (Negative); Leukocyte Esterase,Urine Negative (Negative); Mucus,Urine Rare /hpf; Nitrite,Urine Negative (Negative); Particle Count 3963; Protein,Urine Negative (Negative); RBC,Urine 5 /hpf (0-5); Specific Gravity,Urine 1.019 (1.001-1.035); Squamous Epithelial Cell,Urine 2 /hpf (0-4); UA Billing (MACRO vs. MICRO) MICRO; Urobilinogen,Urine <2.0 mg/dL (<2.0); WBC,Urine 2 /hpf (0-5)
[2016-09-26 18:08] LABS: ALT 35 U/L (9-52); AST 18 U/L (14-36); Alkaline Phosphatase 52 U/L (38-126); Amylase 41 U/L (30-110); Anion Gap 9 mmol/L; Blood Urea Nitrogen 10 mg/dL (7-17); Calcium 9.5 mg/dL (8.4-10.2); Carbon Dioxide 24 mmol/L (22-30); Chloride 106 mmol/L (98-107); Glucose 71 mg/dL (74-99); Non-African American GFR(MDRD) >60 (>60 ml/min/1.73 sqM); Potassium 4.1 mmol/L (3.5-5.1); Sodium 139 mmol/L (137-145); Total Bilirubin 0.2 mg/dL (0.2-1.3); Total Protein 7.2 g/dL (6.3-8.2)
[2016-09-26 18:17] LABS: Basophils # (A) 0.1 k/uL (0-0.2); Basophils % (A) 1 %; CH 30.2; CHCM 33.6; Eosinophils # (A) 0.3 k/uL (0-0.7); Eosinophils % (A) 4 %; HCT 38.9 % (34.0-46.0); HDW 2.51; HGB 12.5 gm/dL (11.4-16.0); Luc # (Auto) 0.28; Luc % (Auto) 4; Lymphocytes # (A) 3.5 k/uL (1.0-4.8); Lymphocytes % (A) 53 %; MCH 29.1 pg (25.0-35.0); MCHC 32.2 g/dL (31.0-37.0); MCV 90.4 fL (80.0-100.0); Mean Platelet Volume 8.8; Monocytes # (A) 0.4 k/uL (0-1.0); Monocytes % (A) 6 %; Neutrophils # (A) 2.2 k/uL (1.3-7.7); Neutrophils % (A) 32 %; RDW 14.4 % (11.5-15.5); WBC 6.7 k/uL (3.8-10.6); WBC (Perox) 6.71
[2016-09-26] MEDS ORDERED: METOCLOPRAMIDE 5 MG/ML 2 ML VIAL IVP STA (18:34)
[2016-09-26] MEDS ORDERED: KETOROLAC 30 MG/ML 1 ML VIAL IVP STA (18:34)
[2016-09-26] MEDS ORDERED: DICYCLOMINE 20 MG TAB PO STA (18:42)
[2016-09-26 19:22] VITALS: BP 110/61; PULSE 84; TEMP 98.3
== END 2016-09-26 19:22 | disposition home or self-care (01) ==
LOC: EC 16:19
DX: R11.2 Nausea with vomiting, unspecified (principal); R19.7 Diarrhea, unspecified; R10.84 Generalized abdominal pain; F31.9 Bipolar disorder, unspecified; F43.10 Post-traumatic stress disorder, unspecified; E07.9 Disorder of thyroid, unspecified; F17.200 Nicotine dependence, unspecified, uncomplicated; Z88.1 Allergy status to other antibiotic agents; Z88.8 Allergy status to other drugs, medicaments and biological substances; Z91.040 Latex allergy status; Z79.899 Other long term (current) drug therapy
CPT/HCPCS: 99284; 96374; 96375 ×4; 96361; 36415; 80053; 82150; 83690; 85025; 81001; 81025; J1200; J2765; J2405; J1885

== ENCOUNTER 2016-10-17 20:38 | Emergency (ER) | payer OTHER ==
[2016-10-17 20:43] VITALS: BP 140/59; PULSE 119; RESP 18; TEMP 99.5
--- NOTE | 2016-10-17 21:19 | ED ---
General Adult HPI - General Chief complaint: Skin/Abscess/Foreign Body Stated complaint: Abcess Axilla/Leg Time Seen by Provider: 10/17/16 20:58 Source: patient, RN notes reviewed Mode of arrival: ambulatory Limitations: no limitations - History of Present Illness Initial comments: 25-year-old female presents to the emergency department with a chief complaint of abscesses. Patient has a history of MRSA. She states she started to pop up with the small bumps again. Patient states she's had one in her leg but that has drained. Patient denies any fever chills with this. Patient states she does not know if she is or not. Patient denies any nausea vomiting with this. Patient was concerned due to the red raised bumps and her history of abscesses in the past so she thought that she should be seen.Patient denies any recent fever, chills, shortness of breath, chest pain, back pain, abdominal pain, nausea vomiting, numbness or tingling, dysuria or hematuria, constipation or diarrhea, headaches or visual changes, or any other current symptoms. - Related Data Home Medications Medication Instructions Recorded Confirmed Norgestimate-Ethinyl Estradiol 1 tab PO DAILY 12/22/13 10/17/16 [Mononessa 28 Tablet] Sertraline [Zoloft] 100 mg PO HS 10/24/14 10/17/16 Levothyroxine Sodium [Synthroid] 50 mcg PO DAILY 03/10/15 10/17/16 traZODone HCL 100 mg PO HS 10/04/15 10/17/16 OXcarbazepine 600 mg PO DAILY 10/24/15 10/17/16 Gabapentin [Neurontin] 300 mg PO BID 05/27/16 10/17/16 QUEtiapine FUMARATE [SEROquel] 300 mg PO HS 08/31/16 10/17/16 Ibuprofen [Motrin] 200 mg PO Q6HR PRN 09/01/16 10/17/16 Previous Rx's Medication Instructions Recorded Sulfamethox-Tmp 800-160Mg [Bactrim 2 each PO Q12HR #56 tab 10/17/16 DS 800-160 mg] Allergies Allergy/AdvReac Type Severity Reaction Status Date / Time adhesive Allergy Unknown Verified 10/17/16 20:55 ceftriaxone sodium Allergy Rash/Hives Verified 10/17/16 20:55 [From Rocephin] latex Allergy Rash/Hives Verified 10/17/16 20:55 bupropion HCl AdvReac Hallucinati Verified 10/17/16 20:55 [From Wellbutrin] ons Review of Systems ROS Statement: Those systems with pertinent positive or pertinent negative responses have been documented in the HPI. ROS Other: All systems not noted in ROS Statement are negative. Past Medical History Past Medical History: Asthma, Thyroid Disorder Additional Past Medical History / Comment(s): INSOMNIA; BODERLINE PERSONALITY DISORDER, back pain hx of syncope, MURMUR CHILD,BRONCHITIS,CARPAL TUNNEL, ARHTIRITS,UTI'S, MIGRAINES."herniated disc neck/back" colitis History of Any Multi-Drug Resistant Organisms: C-DIFF, MRSA Date of last positivie culture/infection: 09/14/2016 MDRO Source:: LIP Past Surgical History: Adenoidectomy, Tonsillectomy Additional Past Surgical History / Comment(s): teeth pulled. SEVERAL AREAS ON BODY HAD i&D FROM AREAS WITH MRSA Past Anesthesia/Blood Transfusion Reactions: No Reported Reaction Additional Past Anesthesia/Blood Transfusion Reaction / Comment(s): CLAUSTERPHOBIA Past Psychological History: Bipolar, PTSD Smoking Status: Current every day smoker Past Alcohol Use History: Rare Past Drug Use History: Marijuana - Past Family History Mother Family Medical History: Myocardial Infarction ([place]) Additional Family Medical History / Comment(s): AT AGE 45 FROM [place] Father Additional Family Medical History / Comment(s): WHEN PT WAS 9 MONTHS OLD FROM A BRAIN ANUERYSM General Exam Limitations: no limitations General appearance: alert, in no apparent distress Neck exam: Present: normal inspection. Absent: tenderness, meningismus, lymphadenopathy Respiratory exam: Present: normal lung sounds bilaterally. Absent: respiratory distress, wheezes, rales, rhonchi, stridor Cardiovascular Exam: Present: regular rate, normal rhythm, normal heart sounds. Absent: systolic murmur, diastolic murmur, rubs, gallop, clicks Neurological exam: Present: alert, oriented X3 Psychiatric exam: Present: normal affect, normal mood Skin exam: Present: warm, dry, other (Patient appears to have multiple small red inflamed areas to the anderson with one larger one to the front of the anderson that is draining. Patient has 3 to the right upper back area.) Course Vital Signs 10/17/16 20:40 Temperature 99.5 F Pulse Rate 119 H Respiratory 18 Rate Blood Pressure 140/59 O2 Sat by Pulse 99 Oximetry Medical Decision Making - Medical Decision Making 25-year-old female with a history of MRSA presents for abscess is. This time we will start the patient on antibiotics. We did discuss follow-up with . we discussed appropriate. This tenderness the abscess as are drainable. Patient family on agreement plan all questions have been answered. They will be discharged home. - Lab Data Lab Results 10/17/16 Range/Units 21:07 Urine HCG, Qual Not Detected (Not Detectd) Disposition Clinical Impression: Abscess of lower leg, Abscess of right axilla Disposition: HOME SELF-CARE Condition: Stable Instructions: Abscess (ED) Additional Instructions: Please use medication as discussed. Please follow up with family doctor if symptoms have not improved over the next two days. Please return to the emergency room if your symptoms increase or worsen or for any other concerns. Prescriptions: Sulfamethox-Tmp 800-160Mg [Bactrim DS 800-160 mg] 2 each PO Q12HR #56 tab Referrals: Jenelle Sherman MD [Primary Care Provider] - 1-2 days Time of Disposition: 21:23
== END 2016-10-17 21:30 | disposition home or self-care (01) ==
LOC: EC 20:38
DX: L02.411 Cutaneous abscess of right axilla (principal); L02.415 Cutaneous abscess of right lower limb; J45.909 Unspecified asthma, uncomplicated; E07.9 Disorder of thyroid, unspecified; G47.00 Insomnia, unspecified; F31.9 Bipolar disorder, unspecified; F60.3 Borderline personality disorder; F17.200 Nicotine dependence, unspecified, uncomplicated; Z79.3 Long term (current) use of hormonal contraceptives; Z79.899 Other long term (current) drug therapy; Z88.1 Allergy status to other antibiotic agents; Z91.040 Latex allergy status; Z88.8 Allergy status to other drugs, medicaments and biological substances; Z91.048 Other nonmedicinal substance allergy status
CPT/HCPCS: 81025; 99283

== ENCOUNTER 2016-11-10 18:48 | Emergency (ER) | payer MEDICAID, OTHER ==
[2016-11-10 18:53] VITALS: RESP 18
--- NOTE | 2016-11-10 19:15 | ED ---
General Adult HPI - General Source: patient, family, RN notes reviewed Mode of arrival: ambulatory Limitations: no limitations <Lan Xiong - Last Filed: 11/10/16 19:50> <Waldemar Ace - Last Filed: 11/10/16 22:55> - General Chief complaint: Psychiatric Symptoms Stated complaint: SUICIDAL Time Seen by Provider: 11/10/16 18:55 - History of Present Illness Initial comments: Chief complaint history of present illness a 26-year-old female with a history of bipolar disorder and borderline personality. States been hearing voices that tell her pillar self she's useless no good to the family the family better off if she were to kill herself jump into traffic. She denies medications. She did cut her left forearm. This needs to be cleaned and sutured. That happened approximately 3 hours ago. Patient states she was on 3 W. for a week. Was discharged on 2 medications Ativan and Minipress which she was not able to fill because her written by someone who is not on her plan. (Lan Xiong) - Related Data Home Medications Medication Instructions Recorded Confirmed Norgestimate-Ethinyl Estradiol 1 tab PO DAILY 12/22/13 11/10/16 [Mononessa 28 Tablet] QUEtiapine FUMARATE [SEROquel] 300 mg PO HS 08/31/16 11/10/16 Ibuprofen [Motrin] 200 mg PO Q6HR PRN 09/01/16 11/10/16 LORazepam [Ativan] 1 mg PO TID PRN 11/10/16 11/10/16 Levothyroxine Sodium [Synthroid] 50 mcg PO QAM 11/10/16 11/10/16 Previous Rx's Medication Instructions Recorded Gabapentin [Neurontin] 300 mg PO BID #28 11/05/16 OXcarbazepine [Trileptal] 600 mg PO BID #28 tab 11/05/16 Prazosin [Minipress] 1 mg PO HS #14 cap 11/05/16 Sertraline [Zoloft] 100 mg PO HS #14 tab 11/05/16 hydrOXYzine HCL [Atarax] 50 mg PO TID PRN #60 tab 11/05/16 traZODone HCL [Desyrel] 200 mg PO HS #28 tab 11/05/16 Allergies Allergy/AdvReac Type Severity Reaction Status Date / Time adhesive tape Allergy Rash/Hives Verified 11/10/16 19:57 ceftriaxone sodium Allergy Rash/Hives Verified 11/10/16 19:57 [From Rocephin] latex Allergy Rash/Hives Verified 11/10/16 19:57 bupropion HCl AdvReac Hallucinati Verified 11/10/16 19:57 [From Wellbutrin] ons butalbital AdvReac Hallucinati Verified 11/10/16 19:57 ons Review of Systems ROS Other: All systems not noted in ROS Statement are negative. <Lan Xiong - Last Filed: 11/10/16 19:50> ROS Other: All systems not noted in ROS Statement are negative. <Waldemar Ace - Last Filed: 11/10/16 22:55> ROS Statement: Those systems with pertinent positive or pertinent negative responses have been documented in the HPI. Review of systems. Patient denies any pain anywhere. Emotionally she states that she feels worthless and the voices he is hearing are telling her she is worthless and she she would be better off in there were also be better off if she just kill herself. I told her to jump into traffic. Patient's denying any chest pain shortness breath GI/ problems. All systems reviewed. Past medical problems significant for asthma, hypothyroidism. Also insomnia and mental illnesses including bipolar and borderline personality. Surgeries tonsils and adenoids and all teeth were pulled plus surgery on her toe. Patient's ALLERGIES include adhesive, ceftriaxone, latex, appropriate on, be told all. She does smoke strongly encouraged stop drinks alcohol socially. Family history noncontributory. (Lan Xiong) Past Medical History Past Medical History: Asthma, Thyroid Disorder Additional Past Medical History / Comment(s): INSOMNIA; BODERLINE PERSONALITY DISORDER, back pain hx of syncope, MURMUR CHILD,BRONCHITIS,CARPAL TUNNEL, ARHTIRITS,UTI'S, MIGRAINES."herniated disc neck/back" colitis History of Any Multi-Drug Resistant Organisms: C-DIFF, MRSA Date of last positivie culture/infection: 09/14/2016 MDRO Source:: LIP Past Surgical History: Adenoidectomy, Tonsillectomy Additional Past Surgical History / Comment(s): teeth pulled. SEVERAL AREAS ON BODY HAD i&D FROM AREAS WITH MRSA Past Anesthesia/Blood Transfusion Reactions: No Reported Reaction Additional Past Anesthesia/Blood Transfusion Reaction / Comment(s): CLAUSTERPHOBIA Past Psychological History: Bipolar, PTSD Smoking Status: Current every day smoker Past Alcohol Use History: Rare Past Drug Use History: Marijuana - Past Family History Mother Family Medical History: Myocardial Infarction ([place]) Additional Family Medical History / Comment(s): AT AGE 45 FROM [place] Father Additional Family Medical History / Comment(s): WHEN PT WAS 9 MONTHS OLD FROM A BRAIN ANUERYSM <Lan Xiong - Last Filed: 11/10/16 19:50> General Exam Limitations: no limitations <Lan Xiong - Last Filed: 11/10/16 19:50> <Waldemar Ace - Last Filed: 11/10/16 22:55> - General Exam Comments Initial Comments: General: The patient is awake and alert, distressed, depressed states she's hearing voices that tell her to hurt herself. She did cause a significant superficial wound that needs to be sutured on the left forearm 3 hours ago. Vital signs shows temperature 100.2 pulse 101 respiratory rate 18 pulse ox 90% room air blood pressure 134/57 Eye: Pupils are equal, round and reactive to light, extra-ocular movements are intact ; there is normal conjunctiva bilaterally. No signs of icterus. Ears, nose, mouth and throat: There are moist mucous membranes and no oral lesions. Patient has had all her teeth pulled. Neck: The neck is supple, there is no tenderness Cardiovascular: There is a regular rate and rhythm. No murmur, rub or gallop is appreciated. Respiratory: Lungs are clear to auscultation, respirations are non-labored, breath sounds are equal. No wheezes, stridor, rales, or rhonchi. Gastrointestinal: Soft, non-distended, non-tender abdomen without masses or organomegaly noted. There is no rebound or guarding present. No CVA tenderness. Bowel sounds are unremarkable. Back: There is no tenderness to palpation in the midline. There is no obvious deformity. No rashes noted. Musculoskeletal: Self-inflicted long wound left forearm. Full range of motion to the hand and wrist. Neurological: No neuro deficits. Skin: Skin is warm and dry and no rashes or lesions are noted. Psychiatric: Cooperative, flat affect. Suicidal thoughts. Hearing voices. Past history of borderline personality, bipolar disorder. (Lan Xiong) Procedures <Lan Xiong - Last Filed: 11/10/16 19:50> <Waldemar Ace - Last Filed: 11/10/16 22:55> - Procedures Initial comment: Procedure; uses sterile technique. A self-inflicted wound on the left forearm volar surface was prepped anesthetized and draped. This was a wound that is been sutured previously and healed. The patient reopen the same wound this evening. This will be treated as a primary closure. Patient states that the wound she opened was not infected. 1% cares used to numb the area. Sutures and placed in a running mattress style suture pattern approximately 20 sutures placed with good closure, hemostasis obtained. Wound was dressed with a small amount of bacitracin one 4 x 4 and paper tape. The sutures removed will be removed in [address] Xiong (Lan Xiong) Disposition <Lan Xiong - Last Filed: 11/10/16 19:50> <Waldemar Ace - Last Filed: 11/10/16 22:55> Clinical Impression: Mood disorder Disposition: HOME SELF-CARE Condition: Good Instructions: Mood Disorders (ED) Referrals: Jenelle Sherman MD [Primary Care Provider] - 1-2 days
[2016-11-10 19:53] LABS: Acetaminophen <10.0 ug/mL; Salicylate <1.0 mg/dL
[2016-11-10] MEDS ORDERED: ZIPRASIDONE 20 MG VIAL IM STA (20:18)
[2016-11-10] MEDS ORDERED: LORazepam 1 MG TAB PO STA (20:20)
[2016-11-10] MEDS ORDERED: IBUPROFEN 600 MG TAB PO STA (21:27)
[2016-11-10 23:12] VITALS: BP 110/58; PULSE 63; TEMP 97.2
--- NOTE | 2016-12-06 00:34 | CDI ---
Dear Lan Xiong MD: Please do addendum length of the left forearm wound. Thank you, Ravinder Kidd, Extension Service Supervisor. If you have any questions, please contact [employer] at [phone]. [facility]
== END 2016-11-10 23:13 | disposition home or self-care (01) ==
LOC: EC 18:48
DX: F31.9 Bipolar disorder, unspecified (principal); S50.912A Unspecified superficial injury of left forearm, initial encounter; R45.851 Suicidal ideations; R44.0 Auditory hallucinations; E07.9 Disorder of thyroid, unspecified; F17.200 Nicotine dependence, unspecified, uncomplicated; Z79.3 Long term (current) use of hormonal contraceptives; Z79.899 Other long term (current) drug therapy; Z88.1 Allergy status to other antibiotic agents; Z88.8 Allergy status to other drugs, medicaments and biological substances; Z91.040 Latex allergy status; Z91.09 Other allergy status, other than to drugs and biological substances; X78.9XXA Intentional self-harm by unspecified sharp object, initial encounter
CPT/HCPCS: 99284; 12004; 96372; 82075; 36415; 81025; 80306; 83520 ×2; J3486

== ENCOUNTER 2016-12-29 21:04 | Emergency (ER) | payer OTHER ==
[2016-12-29] MEDS ORDERED: diphenhydrAMINE 50 MG CAP PO STA (21:21)
[2016-12-29] MEDS ORDERED: KETOROLAC 60 MG/2 ML VIAL IM STA (21:21)
[2016-12-29] MEDS ORDERED: DIAZEPAM 5 MG TAB PO STA (21:21)
[2016-12-29] MEDS ORDERED: methylPREDNISolone SOD SUCCI 125 MG/2 ML VIAL IM ONE (21:21)
--- NOTE | 2016-12-29 21:31 | ED ---
General Adult HPI - General Chief complaint: Headache Stated complaint: neck pain/blurred vision Time Seen by Provider: 12/29/16 21:10 Source: patient, RN notes reviewed Mode of arrival: ambulatory Limitations: no limitations - History of Present Illness Initial comments: 26-year-old female presents emergency department with chief complaint of right- sided neck muscle spasm. Patient states that she went to turn and all of a sudden she felt this snap and since she's had pain to the neck and causing a headache that wraps around her head. She states movement of the neck and certain directions does cause increased pain. She states that it does extend into the right shoulder as well. The patient was concerned due to the discomfort so she thought that she should be evaluated.Patient denies any recent fever, chills, shortness of breath, chest pain, back pain, abdominal pain , nausea vomiting, numbness or tingling, dysuria or hematuria, constipation or diarrhea, headaches or visual changes, or any other current symptoms. - Related Data Home Medications Medication Instructions Recorded Confirmed Norgestimate-Ethinyl Estradiol 1 tab PO DAILY 12/22/13 11/10/16 [Mononessa 28 Tablet] QUEtiapine FUMARATE [SEROquel] 300 mg PO HS 08/31/16 11/10/16 Ibuprofen [Motrin] 200 mg PO Q6HR PRN 09/01/16 11/10/16 LORazepam [Ativan] 1 mg PO TID PRN 11/10/16 11/10/16 Levothyroxine Sodium [Synthroid] 50 mcg PO QAM 11/10/16 11/10/16 Previous Rx's Medication Instructions Recorded Gabapentin [Neurontin] 300 mg PO BID #28 11/05/16 OXcarbazepine [Trileptal] 600 mg PO BID #28 tab 11/05/16 Prazosin [Minipress] 1 mg PO HS #14 cap 11/05/16 Sertraline [Zoloft] 100 mg PO HS #14 tab 11/05/16 hydrOXYzine HCL [Atarax] 50 mg PO TID PRN #60 tab 11/05/16 traZODone HCL [Desyrel] 200 mg PO HS #28 tab 11/05/16 Orphenadrine [Norflex] 100 mg PO Q12H #10 tablet.er 12/29/16 Allergies Allergy/AdvReac Type Severity Reaction Status Date / Time adhesive tape Allergy Rash/Hives Verified 12/29/16 21:09 ceftriaxone sodium Allergy Rash/Hives Verified 12/29/16 21:09 [From Rocephin] latex Allergy Rash/Hives Verified 12/29/16 21:09 bupropion HCl AdvReac Hallucinati Verified 12/29/16 21:09 [From Wellbutrin] ons butalbital AdvReac Hallucinati Verified 12/29/16 21:09 ons Review of Systems ROS Statement: Those systems with pertinent positive or pertinent negative responses have been documented in the HPI. ROS Other: All systems not noted in ROS Statement are negative. Past Medical History Past Medical History: Asthma, Thyroid Disorder Additional Past Medical History / Comment(s): INSOMNIA; BODERLINE PERSONALITY DISORDER, back pain hx of syncope, MURMUR CHILD,BRONCHITIS,CARPAL TUNNEL, ARHTIRITS,UTI'S, MIGRAINES."herniated disc neck/back" colitis History of Any Multi-Drug Resistant Organisms: C-DIFF, MRSA Date of last positivie culture/infection: 09/14/2016 MDRO Source:: LIP Past Surgical History: Adenoidectomy, Tonsillectomy Additional Past Surgical History / Comment(s): teeth pulled. SEVERAL AREAS ON BODY HAD i&D FROM AREAS WITH MRSA Past Anesthesia/Blood Transfusion Reactions: No Reported Reaction Additional Past Anesthesia/Blood Transfusion Reaction / Comment(s): CLAUSTERPHOBIA Past Psychological History: Bipolar, PTSD Smoking Status: Current every day smoker Past Alcohol Use History: Rare Past Drug Use History: Marijuana - Past Family History Mother Family Medical History: Myocardial Infarction ([place]) Additional Family Medical History / Comment(s): AT AGE 45 FROM [place] Father Additional Family Medical History / Comment(s): WHEN PT WAS 9 MONTHS OLD FROM A BRAIN ANUERYSM General Exam Limitations: no limitations General appearance: alert, in no apparent distress Head exam: Present: atraumatic, normocephalic, normal inspection Eye exam: Present: normal appearance, PERRL, EOMI. Absent: scleral icterus, conjunctival injection, periorbital swelling ENT exam: Present: normal exam, mucous membranes moist Neck exam: Present: normal inspection, tenderness (Right lateral aspect of the neck), full ROM (With pain at extremes). Absent: meningismus, lymphadenopathy Respiratory exam: Present: normal lung sounds bilaterally. Absent: respiratory distress, wheezes, rales, rhonchi, stridor Cardiovascular Exam: Present: regular rate, normal rhythm, normal heart sounds. Absent: systolic murmur, diastolic murmur, rubs, gallop, clicks Course Vital Signs 12/29/16 21:06 Temperature 98.3 F Pulse Rate 94 Respiratory 20 Rate Blood Pressure 141/76 O2 Sat by Pulse 96 Oximetry Medical Decision Making - Medical Decision Making 26-year-old female presents with appears to be cervical spasm. At this time patient was reassessed and is feeling much better. Patient at this time states she is ready go home. We discussed most likely cervical muscle spasm. We discussed return parameters follow-up and all questions. Patient stated she understood she is given plan. She'll be discharged. Disposition Clinical Impression: Cervical paraspinal muscle spasm Disposition: HOME SELF-CARE Condition: Stable Instructions: Cervical Strain (ED) Additional Instructions: Please use medication as discussed. Please follow up with family doctor if symptoms have not improved over the next two days. Please return to the emergency room if your symptoms increase or worsen or for any other concerns. Prescriptions: Orphenadrine [Norflex] 100 mg PO Q12H #10 tablet.er Referrals: Natty Finnegan MD [Primary Care Provider] - 1-2 days Time of Disposition: 22:32
[2016-12-29 22:40] VITALS: BP 118/58; PULSE 78; RESP 18; TEMP 98.1
== END 2016-12-29 22:40 | disposition home or self-care (01) ==
LOC: EC 21:04
DX: M62.838 Other muscle spasm (principal); F31.9 Bipolar disorder, unspecified; E07.9 Disorder of thyroid, unspecified; F17.200 Nicotine dependence, unspecified, uncomplicated; Z86.14 Personal history of Methicillin resistant Staphylococcus aureus infection; Z91.048 Other nonmedicinal substance allergy status; Z88.1 Allergy status to other antibiotic agents; Z91.040 Latex allergy status; Z88.8 Allergy status to other drugs, medicaments and biological substances; Z79.3 Long term (current) use of hormonal contraceptives; Z79.899 Other long term (current) drug therapy
CPT/HCPCS: 99283; 96372 ×2; J2930; J1885

== ENCOUNTER 2017-03-12 15:56 | Emergency (ER) | payer OTHER ==
--- NOTE | 2017-03-12 18:01 | ED ---
Burn/Smoke HPI - General Chief complaint: Burn/Smoke Inhalation Stated complaint: burn on arm Time Seen by Provider: 03/12/17 17:11 Source: patient Mode of arrival: ambulatory Limitations: no limitations - History of Present Illness Initial comments: This is a 26-year-old female who presents to the ED with a chief complaint of a burn located on the right wrist. The patient was cooking and accidentally spilled grease on her arm today. The patient also complains of a bug bite near the site of the burn which has been present for 4 days. The area is non-pruritic , but is becoming increasingly erythematous. While being evaluated for the burn , the patient also mentions several, nonspecific G.I. symptoms that have been ongoing and are not acutely related to the burn. She has presented to the ED several times in the past with these symptoms. - Related Data Home Medications Medication Instructions Recorded Confirmed Norgestimate-Ethinyl Estradiol 1 tab PO DAILY 12/22/13 03/12/17 [Mononessa 28 Tablet] QUEtiapine FUMARATE [SEROquel] 300 mg PO HS 08/31/16 03/12/17 Ibuprofen [Motrin] 200 mg PO Q6HR PRN 09/01/16 03/12/17 LORazepam [Ativan] 1 mg PO TID PRN 11/10/16 03/12/17 Levothyroxine Sodium [Synthroid] 50 mcg PO QAM 11/10/16 03/12/17 Sertraline [Zoloft] 150 mg PO HS 03/12/17 03/12/17 Previous Rx's Medication Instructions Recorded Gabapentin [Neurontin] 300 mg PO BID #28 11/05/16 OXcarbazepine [Trileptal] 600 mg PO BID #28 tab 11/05/16 traZODone HCL [Desyrel] 200 mg PO HS #28 tab 11/05/16 Dicyclomine [Bentyl] 20 mg PO TID #30 tablet 03/12/17 SILVER sulfADIAZINE Cream 1 applic TOPICAL DAILY #1 tube 03/12/17 [Silvadene 1% Cream] Sulfamethox-Tmp 800-160Mg [Bactrim 1 tab PO Q12HR 7 Days #14 tab 03/12/17 DS 800-160 mg] Allergies Allergy/AdvReac Type Severity Reaction Status Date / Time adhesive tape Allergy Rash/Hives Verified 03/12/17 18:19 ceftriaxone sodium Allergy Rash/Hives Verified 03/12/17 18:19 [From Rocephin] latex Allergy Rash/Hives Verified 03/12/17 18:19 bupropion HCl AdvReac Hallucinati Verified 03/12/17 18:19 [From Wellbutrin] ons butalbital AdvReac Hallucinati Verified 03/12/17 18:19 ons Review of Systems ROS Statement: Those systems with pertinent positive or pertinent negative responses have been documented in the HPI. ROS Other: All systems not noted in ROS Statement are negative. Past Medical History Past Medical History: Asthma, Thyroid Disorder Additional Past Medical History / Comment(s): INSOMNIA; BODERLINE PERSONALITY DISORDER, back pain hx of syncope, MURMUR CHILD,BRONCHITIS,CARPAL TUNNEL, ARHTIRITS,UTI'S, MIGRAINES."herniated disc neck/back" colitis History of Any Multi-Drug Resistant Organisms: C-DIFF, MRSA Date of last positivie culture/infection: 09/14/2016 MDRO Source:: LIP Past Surgical History: Adenoidectomy, Tonsillectomy Additional Past Surgical History / Comment(s): teeth pulled. SEVERAL AREAS ON BODY HAD i&D FROM AREAS WITH MRSA Past Anesthesia/Blood Transfusion Reactions: No Reported Reaction Additional Past Anesthesia/Blood Transfusion Reaction / Comment(s): CLAUSTERPHOBIA Past Psychological History: Bipolar, PTSD Smoking Status: Current every day smoker Past Alcohol Use History: Rare Past Drug Use History: Marijuana - Past Family History Mother Family Medical History: Myocardial Infarction ([place]) Additional Family Medical History / Comment(s): AT AGE 45 FROM [place] Father Additional Family Medical History / Comment(s): WHEN PT WAS 9 MONTHS OLD FROM A BRAIN ANUERYSM General Exam Limitations: no limitations Head exam: Present: atraumatic, normocephalic, normal inspection Respiratory exam: Present: normal lung sounds bilaterally. Absent: respiratory distress, wheezes, rales, rhonchi, stridor Cardiovascular Exam: Present: regular rate, normal rhythm, normal heart sounds. Absent: systolic murmur, diastolic murmur, rubs, gallop, clicks GI/Abdominal exam: Present: soft, normal bowel sounds. Absent: distended, tenderness, guarding, rebound, rigid, organomegaly Neurological exam: Present: alert, oriented X3, CN II-XII intact Psychiatric exam: Present: normal affect, normal mood Skin exam: Present: warm, dry, intact, normal color, other (An erythematous, macular eruption is visible on the right wrist where the patient was burned with grease. There is no evidence of vesicle or bullae formation. There is a well circumscribed, erythematous nodule with central scarring located proximally to the burn. Neurovascular remains grossly intact.). Absent: rash Course Vital Signs 03/12/17 16:39 Temperature 99.3 F Pulse Rate 86 Respiratory 18 Rate O2 Sat by Pulse 98 Oximetry Medical Decision Making - Medical Decision Making 26-year-old female presented for multiple complaints. Primarily she is under for burn to her right arm along with an insect bite which isn't infected. Patient was started antibiotics for infected wound, given Silvadene cream for her burn. Patient's tetanus is up-to-date. Patient did complain of multiple GI symptoms which are not consistent with anything concerns today. Abdomen soft nontender. She most likely has underlying IBS will be given Bentyl. - Lab Data Lab Results 03/12/17 03/12/17 Range/Units 18:00 18:00 Urine Color Yellow Urine Appearance Clear (Clear) Urine pH 6.0 (5.0-8.0) Ur Specific [place] 1.022 (1.001-1.035) Urine Protein Trace H (Negative) Urine Glucose (UA) Negative (Negative) Urine Ketones Negative (Negative) Urine Blood Negative (Negative) Urine Nitrite Negative (Negative) Urine Bilirubin Negative (Negative) Urine Urobilinogen <2.0 (<2.0) mg/dL Ur Leukocyte Esterase Negative (Negative) Urine HCG, Qual Not Detected (Not Detectd) Disposition Clinical Impression: First degree burn, Irritable bowel syndrome (IBS), Infected insect bite Disposition: HOME SELF-CARE Condition: Stable Instructions: Superficial Burn (ED) Additional Instructions: Please return to the Emergency Department if symptoms worsen or any other concerns. Prescriptions: Dicyclomine [Bentyl] 20 mg PO TID #30 tablet SILVER sulfADIAZINE Cream [Silvadene 1% Cream] 1 applic TOPICAL DAILY #1 tube Sulfamethox-Tmp 800-160Mg [Bactrim DS 800-160 mg] 1 tab PO Q12HR 7 Days #14 tab Referrals: Natty Finnegan MD [Primary Care Provider] - 1-2 days Time of Disposition: 18:32
[2017-03-12 18:16] LABS: Appearance,Urine Clear (Clear); Bilirubin,Urine Negative (Negative); Blood,Urine Negative (Negative); Color,Urine Yellow; Glucose,Urine (UA) Negative (Negative); Ketones,Urine Negative (Negative); Leukocyte Esterase,Urine Negative (Negative); Nitrite,Urine Negative (Negative); Protein,Urine Trace (Negative); Specific Gravity,Urine 1.022 (1.001-1.035); Urobilinogen,Urine <2.0 mg/dL (<2.0)
[2017-03-12 18:51] VITALS: BP 132/86; PULSE 89; RESP 16; TEMP 98
== END 2017-03-12 18:50 | disposition home or self-care (01) ==
LOC: EC 15:56
DX: T23.171A Burn of first degree of right wrist, initial encounter (principal); S60.861A Insect bite (nonvenomous) of right wrist, initial encounter; L03.113 Cellulitis of right upper limb; K58.9 Irritable bowel syndrome, unspecified; E07.9 Disorder of thyroid, unspecified; F60.3 Borderline personality disorder; G47.00 Insomnia, unspecified; F31.9 Bipolar disorder, unspecified; F43.10 Post-traumatic stress disorder, unspecified; F17.200 Nicotine dependence, unspecified, uncomplicated; Z86.14 Personal history of Methicillin resistant Staphylococcus aureus infection; Z79.3 Long term (current) use of hormonal contraceptives; Z79.899 Other long term (current) drug therapy; Z88.1 Allergy status to other antibiotic agents; Z91.040 Latex allergy status; Z88.8 Allergy status to other drugs, medicaments and biological substances; Z91.048 Other nonmedicinal substance allergy status; X19.XXXA Contact with other heat and hot substances, initial encounter; Y93.G3 Activity, cooking and baking; W57.XXXA Bitten or stung by nonvenomous insect and other nonvenomous arthropods, initial encounter
CPT/HCPCS: 81003; 81025; 99283

== ENCOUNTER → 2017-03-14 | Outpatient (CLI) | payer OTHER ==
--- NOTE | 2017-03-14 22:09 | MR ---
EXAMINATION TYPE: MR cspine/lspine wo con DATE OF EXAM: 03/14/2017 COMPARISON: Prior MRI cervical and lumbar spine March 02, 2016 HISTORY: Cervical and lumbar radiculopathy per order. Headache with neck spasm, pain, numbness and ti ngling since 2013 causing pain or weakness into both arms and fingers per patient. Low back pain and weakness with pain into both lower extremities since 2012 per patient. TECHNIQUE: Multiplanar, multisequence imaging of the cervical and lumbar spine are performed without IV contrast. FINDINGS: C-SPINE: Current exam is suboptimal as is degraded by patient motion artifact. FINDINGS: Coronal images redemonstrate slight levoconvex scoliotic curvature centered in the upper th oracic spine. Sagittal images of the cervical spine show the craniocervical junction to remain within normal limits. The cervical and upper thoracic spinal cord is normal in course, caliber, and signal . Vertebral alignment is stable and straightened. The vertebral body and intravertebral disk height s remain normal. There are persistent small posterior disc herniation C5-C6 and C6-C7 level on sagitt al image 7. The bone marrow signal intensity is within normal limits. No significant spurring is see n. Axial images show the C2-C3, C3-C4, and C4-C5 levels all to remain within normal limits. Axial images at C5-C6 level shows broad-based right paracentral disc protrusion effacing the anterola teral thecal sac, bilateral neural foramina are patent. Axial images at C6-C7 level shows small central disc protrusion mildly effacing anterior thecal sac o n axial image 15, bilateral neural foramina remain patent. Axial images at C7-T1 level are within normal limits. IMPRESSION: Overall stable findings, straightening of cervical spine with stable disc herniations C5- C6 and to lesser degree C6-C7 level redemonstrated. L-SPINE: Sagittal images of the lumbar spine show vertebral body heights and alignment to appear satisfactory. There is mild disc desiccation L5-S1 level redemonstrated otherwise the intervertebral discs demonst rate normal heights and hydration. No suspicious posterior disc herniations are seen on sagittal bridgett ges The conus medullaris is stable in position somewhat high ending mid to inferior T12 level. No ab normal signal is seen. No suspicious clumping of lumbosacral nerve roots is noted. The bone marrow si gnal intensity is within normal limits. No significant spurring is present. Tiny posterior disc herni ation T11-T12 level mildly effaces anterior thecal sac sagittal image 8 not significantly changed fro m prior. Axial images show no focal disc disease, or facet degenerative change at any lumbar level. There is no spinal canal stenosis, neural foraminal narrowing, or evidence of nerve root compromise. No suspic ious retroperitoneal findings are seen. IMPRESSION: No significant change from prior study. No significant new findings seen to account for p atient's symptoms.
== END | disposition home or self-care (01) ==
LOC: RADMRIMAIN 20:05
PROVIDERS: ATTEND Neurological Surgery
DX: M50.122 Cervical disc disorder at C5-C6 level with radiculopathy (principal); M54.16 Radiculopathy, lumbar region
CPT/HCPCS: 72141; 72148

== ENCOUNTER 2017-05-27 17:21 | Emergency (ER) | payer OTHER ==
[2017-05-27 18:46] VITALS: TEMP 99.3
[2017-05-27] MEDS ORDERED: SULFAMETH-TMP DS STARTER PACK 2 TAB BTL PO STA (20:03)
[2017-05-27] MEDS ORDERED: ONDANSETRON 4 MG ODT STARTER PACK 2 TAB BTL PO STA (20:04)
--- NOTE | 2017-05-27 20:06 | ED ---
Skin/Abscess/FB HPI - General Chief complaint: Skin/Abscess/Foreign Body Stated complaint: MRSA on side Time Seen by Provider: 05/27/17 18:52 Source: patient, RN notes reviewed, old records reviewed Mode of arrival: wheelchair Limitations: no limitations - History of Present Illness Initial comments: Patient is a 26 One day of erythema over the right side of her back. She reports that she has a history of abscesses in MRSA. She reports that she started to notice this redness last night into today. Today. She denies any changes in urine or bowel habits. She did vomit once today. Denies any fever chills. No recent antibiotic use. - Related Data Home Medications Medication Instructions Recorded Confirmed Norgestimate-Ethinyl Estradiol 1 tab PO DAILY 12/22/13 05/27/17 [Mononessa 28 Tablet] QUEtiapine FUMARATE [SEROquel] 300 mg PO HS 08/31/16 05/27/17 Ibuprofen [Motrin] 200 mg PO Q6HR PRN 09/01/16 05/27/17 LORazepam [Ativan] 1 mg PO TID PRN 11/10/16 05/27/17 Levothyroxine Sodium [Synthroid] 50 mcg PO QAM 11/10/16 05/27/17 Sertraline [Zoloft] 150 mg PO HS 03/12/17 05/27/17 Previous Rx's Medication Instructions Recorded Gabapentin [Neurontin] 300 mg PO BID #28 11/05/16 OXcarbazepine [Trileptal] 600 mg PO BID #28 tab 11/05/16 traZODone HCL [Desyrel] 200 mg PO HS #28 tab 11/05/16 Ibuprofen [Motrin] 600 mg PO Q8HR PRN #20 tab 05/27/17 Ondansetron Odt [Zofran Odt] 4 mg PO Q8HR PRN #20 tab 05/27/17 Sulfamethox-Tmp 800-160Mg [Bactrim 2 tab PO Q12HR #40 tab 05/27/17 DS 800-160 mg] Allergies Allergy/AdvReac Type Severity Reaction Status Date / Time adhesive tape Allergy Rash/Hives Verified 05/27/17 19:38 ceftriaxone sodium Allergy Rash/Hives Verified 05/27/17 19:38 [From Rocephin] latex Allergy Rash/Hives Verified 05/27/17 19:38 bupropion HCl AdvReac Hallucinati Verified 05/27/17 19:38 [From Wellbutrin] ons butalbital AdvReac Hallucinati Verified 05/27/17 19:38 ons Review of Systems ROS Statement: Those systems with pertinent positive or pertinent negative responses have been documented in the HPI. ROS Other: All systems not noted in ROS Statement are negative. Constitutional: Denies: fever, chills Eyes: Denies: eye pain ENT: Denies: ear pain Respiratory: Denies: cough, dyspnea Cardiovascular: Denies: chest pain Endocrine: Denies: fatigue Gastrointestinal: Reports: vomiting. Denies: abdominal pain, nausea Genitourinary: Denies: urgency, dysuria Musculoskeletal: Denies: back pain Skin: Reports: lesions. Denies: rash Neurological: Denies: weakness Psychiatric: Denies: depression Past Medical History Past Medical History: Asthma, Thyroid Disorder Additional Past Medical History / Comment(s): INSOMNIA; BODERLINE PERSONALITY DISORDER, back pain hx of syncope, MURMUR CHILD,BRONCHITIS,CARPAL TUNNEL, ARHTIRITS,UTI'S, MIGRAINES."herniated disc neck/back" colitis History of Any Multi-Drug Resistant Organisms: C-DIFF, MRSA Date of last positivie culture/infection: 09/14/2016 MDRO Source:: LIP Past Surgical History: Adenoidectomy, Tonsillectomy Additional Past Surgical History / Comment(s): teeth pulled. SEVERAL AREAS ON BODY HAD i&D FROM AREAS WITH MRSA Past Anesthesia/Blood Transfusion Reactions: No Reported Reaction Additional Past Anesthesia/Blood Transfusion Reaction / Comment(s): CLAUSTERPHOBIA Past Psychological History: Bipolar, PTSD Smoking Status: Current every day smoker Past Alcohol Use History: Rare Past Drug Use History: Marijuana - Past Family History Mother Family Medical History: Myocardial Infarction ([place]) Additional Family Medical History / Comment(s): AT AGE 45 FROM [place] Father Additional Family Medical History / Comment(s): WHEN PT WAS 9 MONTHS OLD FROM A BRAIN ANUERYSM General Exam - General Exam Comments Initial Comments: Morbidly obses 26 year old female. Limitations: no limitations General appearance: alert, in no apparent distress Head exam: Present: atraumatic, normocephalic, normal inspection Eye exam: Present: normal appearance, PERRL, EOMI. Absent: scleral icterus, conjunctival injection, periorbital swelling ENT exam: Present: normal exam, mucous membranes moist Neck exam: Present: normal inspection. Absent: tenderness, meningismus, lymphadenopathy Respiratory exam: Present: normal lung sounds bilaterally. Absent: respiratory distress, wheezes, rales, rhonchi, stridor Cardiovascular Exam: Present: regular rate, normal rhythm, normal heart sounds. Absent: systolic murmur, diastolic murmur, rubs, gallop, clicks GI/Abdominal exam: Present: soft, normal bowel sounds. Absent: distended, tenderness, guarding, rebound, rigid Back exam: Present: normal inspection, other (area of cellulitis on right flank and small abscess noted measuring 4cm by 6cm) Neurological exam: Present: alert, oriented X3, CN II-XII intact Psychiatric exam: Present: normal affect, normal mood Skin exam: Present: warm, dry, intact, normal color, erythema. Absent: rash Course Vital Signs 05/27/17 05/27/17 18:42 20:14 Temperature 99.3 F Pulse Rate 99 90 Respiratory 18 20 Rate Blood Pressure 123/57 143/78 O2 Sat by Pulse 99 98 Oximetry Procedures - Incision & Drainage Consent Obtained: verbal consent Indication: abscess and cellulitis Site: back (R flank) Size (cm): 4 Anesthetic Used: lidocaine 1% Amount (mLs): 5 I&D Cleaning Method: Iodine Sterile Field Used?: Yes Scalpel Used: #11 I&D Drainage Obtained: Pus, Blood Culture Obtained?: Yes Patient Tolerated Procedure: well, no complications Medical Decision Making - Medical Decision Making Patient is a 26 year old female with CC of back abscess and cellulitis for one day. Hx of MRSA. Patient recieved Incision and drainage, approximately 3 cc of purulent fluid drained. Started patient on bactrim, and return parameters discussed. Disposition Clinical Impression: Cellulitis of mid back region, Abscess of back, Nausea Disposition: HOME SELF-CARE Condition: Good Instructions: Abscess Incision and Drainage (ED) Additional Instructions: Patient advised to complete the antibiotic prescription. Follow-up with primary care provider. Monitor for areas redness is getting worse return to emergency department. Prescriptions: Ibuprofen [Motrin] 600 mg PO Q8HR PRN #20 tab PRN Reason: Pain Ondansetron Odt [Zofran Odt] 4 mg PO Q8HR PRN #20 tab PRN Reason: Nausea Sulfamethox-Tmp 800-160Mg [Bactrim DS 800-160 mg] 2 tab PO Q12HR #40 tab Is patient prescribed a controlled substance at discharge?: No If prescribed controlled substance>3 days was MAPS reviewed?: No When asked, does pt state using other controlled substances?: No Referrals: Natty Finnegan MD [Primary Care Provider] - 1-2 days Time of Disposition: 20:03
[2017-05-27 20:15] VITALS: BP 143/78; PULSE 90; RESP 20
== END 2017-05-27 20:15 | disposition home or self-care (01) ==
LOC: EC 17:21
DX: L02.212 Cutaneous abscess of back [any part, except buttock and flank] (principal); L03.312 Cellulitis of back [any part except buttock and flank]; R11.0 Nausea; E07.9 Disorder of thyroid, unspecified; F43.10 Post-traumatic stress disorder, unspecified; E66.01 Morbid (severe) obesity due to excess calories; F17.200 Nicotine dependence, unspecified, uncomplicated; Z79.3 Long term (current) use of hormonal contraceptives; Z79.899 Other long term (current) drug therapy; Z88.1 Allergy status to other antibiotic agents; Z88.8 Allergy status to other drugs, medicaments and biological substances; Z91.040 Latex allergy status; Z91.048 Other nonmedicinal substance allergy status; Z86.14 Personal history of Methicillin resistant Staphylococcus aureus infection; Z68.42 Body mass index [BMI] 45.0-49.9, adult
CPT/HCPCS: 87070; 87205; 87077; 87186; 99283; 10060; S0119

== ENCOUNTER 2017-05-29 15:55 | Emergency (ER) | payer OTHER ==
[2017-05-29] MEDS ORDERED: SODIUM CHLORIDE 0.9% 1,000 ML IV ONE (17:42)
[2017-05-29] MEDS ORDERED: KETOROLAC 30 MG/ML 1 ML VIAL IVP STA (17:42)
--- NOTE | 2017-05-29 18:07 | ED ---
Skin/Abscess/FB HPI - General Chief complaint: Skin/Abscess/Foreign Body Stated complaint: poss mrsa Time Seen by Provider: 05/29/17 17:29 Source: patient Mode of arrival: ambulatory Limitations: no limitations - History of Present Illness Initial comments: 26-year-old female patient presents to the emergency department today for evaluation of the abscess to her right flank. Patient states that she noticed the abscess on Saturday. States that she has had frequent abscesses similar to this in the past and has been diagnosed with MRSA. Patient was seen and evaluated here on Saturday and was started on antibiotics after an incision and drainage. Patient states that the area has become more painful, the redness is worsening, and she has had low-grade fevers. She denies any nausea, vomiting, chills, or sweats. Patient states that she is unable to handle the pain. She denies any alcohol or drug use. States that she has been taking her medications as directed. States she's been taking ibuprofen for the pain. States that she has been applying warm compresses. Patient denies any recent rash, shortness breath, chest pain, abdominal pain, nausea, vomiting, diarrhea, constipation, back pain, numbness, tingling, dizziness, weakness, hematuria, dysuria, urinary urgency, urinary frequency, headache, visual changes, or any other complaints. - Related Data Home Medications Medication Instructions Recorded Confirmed Norgestimate-Ethinyl Estradiol 1 tab PO DAILY 12/22/13 05/27/17 [Mononessa 28 Tablet] QUEtiapine FUMARATE [SEROquel] 300 mg PO HS 08/31/16 05/27/17 Ibuprofen [Motrin] 200 mg PO Q6HR PRN 09/01/16 05/27/17 LORazepam [Ativan] 1 mg PO TID PRN 11/10/16 05/27/17 Levothyroxine Sodium [Synthroid] 50 mcg PO QAM 11/10/16 05/27/17 Sertraline [Zoloft] 150 mg PO HS 03/12/17 05/27/17 Previous Rx's Medication Instructions Recorded Gabapentin [Neurontin] 300 mg PO BID #28 11/05/16 OXcarbazepine [Trileptal] 600 mg PO BID #28 tab 11/05/16 traZODone HCL [Desyrel] 200 mg PO HS #28 tab 11/05/16 Ibuprofen [Motrin] 600 mg PO Q8HR PRN #20 tab 05/27/17 Ondansetron Odt [Zofran Odt] 4 mg PO Q8HR PRN #20 tab 05/27/17 Sulfamethox-Tmp 800-160Mg [Bactrim 2 tab PO Q12HR #40 tab 05/27/17 DS 800-160 mg] Acetaminophen-Codeine 300-30mg 1 tab PO Q6H PRN #12 tablet 05/29/17 [Tylenol #3] Allergies Allergy/AdvReac Type Severity Reaction Status Date / Time adhesive tape Allergy Rash/Hives Verified 05/29/17 16:26 ceftriaxone sodium Allergy Rash/Hives Verified 05/29/17 16:26 [From Rocephin] latex Allergy Rash/Hives Verified 05/29/17 16:26 bupropion HCl AdvReac Hallucinati Verified 05/29/17 16:26 [From Wellbutrin] ons butalbital AdvReac Hallucinati Verified 05/29/17 16:26 ons Review of Systems ROS Statement: Those systems with pertinent positive or pertinent negative responses have been documented in the HPI. ROS Other: All systems not noted in ROS Statement are negative. Past Medical History Past Medical History: Asthma, Thyroid Disorder Additional Past Medical History / Comment(s): INSOMNIA; BODERLINE PERSONALITY DISORDER, back pain hx of syncope, MURMUR CHILD,BRONCHITIS,CARPAL TUNNEL, ARHTIRITS,UTI'S, MIGRAINES."herniated disc neck/back" colitis History of Any Multi-Drug Resistant Organisms: MRSA Date of last positivie culture/infection: 05/27/17 MDRO Source:: ABDOMEN Past Surgical History: Adenoidectomy, Tonsillectomy Additional Past Surgical History / Comment(s): teeth pulled. SEVERAL AREAS ON BODY HAD i&D FROM AREAS WITH MRSA Past Anesthesia/Blood Transfusion Reactions: No Reported Reaction Additional Past Anesthesia/Blood Transfusion Reaction / Comment(s): CLAUSTERPHOBIA Past Psychological History: Bipolar, PTSD Smoking Status: Current every day smoker Past Alcohol Use History: Rare Past Drug Use History: Marijuana - Past Family History Mother Family Medical History: Myocardial Infarction ([place]) Additional Family Medical History / Comment(s): AT AGE 45 FROM [place] Father Additional Family Medical History / Comment(s): WHEN PT WAS 9 MONTHS OLD FROM A BRAIN ANUERYSM General Exam Limitations: no limitations General appearance: alert, in no apparent distress, other (This is a well- developed, well-nourished adult female patient in no acute distress. Vital signs upon presentation are temperature 99.9F, pulse 76, respirations 20, blood pressure 168/82, pulse ox 96% on room air.) Eye exam: Present: normal appearance, PERRL, EOMI. Absent: scleral icterus, conjunctival injection, periorbital swelling ENT exam: Present: normal exam, normal oropharynx, mucous membranes moist Respiratory exam: Present: normal lung sounds bilaterally. Absent: respiratory distress, wheezes, rales, rhonchi, stridor Cardiovascular Exam: Present: regular rate, normal rhythm, normal heart sounds. Absent: systolic murmur, diastolic murmur, rubs, gallop, clicks Back exam: Present: other (Right flank exhibits a 4 cm x 1 cm area of induration with surrounding erythema. There was a line drawn in the emergency department on 05/27/2017, the erythema extends approximately 3 centimeters beyond the spine.) Neurological exam: Present: alert, oriented X3, CN II-XII intact Psychiatric exam: Present: normal affect, normal mood Skin exam: Present: warm, dry, intact, normal color. Absent: rash Course Vital Signs 05/29/17 05/29/17 16:23 19:35 Temperature 99.9 F H 98.3 F Pulse Rate 76 70 Respiratory 20 18 Rate Blood Pressure 168/82 135/57 O2 Sat by Pulse 96 98 Oximetry Medical Decision Making - Medical Decision Making 26-year-old male patient presented to the emergency department today for evaluation of abscess to the right flank. Physical examination did reveal a 4 x 1 cm area of induration with surrounding erythema. There is no evidence of fluctuance or drainable abscess at this point. Patient is currently taking Bactrim 2 tablets twice daily. Labs reviewed and showed no elevated white blood cell count or other abnormalities. Patient is afebrile. I did review culture results from couple of days ago which showed presumptive MRSA, Bactrim will cover this. She is instructed to continue taking her antibiotics. Return parameters discussed in detail. She is instructed follow up with her primary care physician for recheck in 1-2 days. She verbalizes understanding and agrees with this plan. - Lab Data Result diagrams: 05/29/17 18:30 05/29/17 18:30 Lab Results 05/29/17 05/29/17 Range/Units 18:30 18:30 WBC 7.9 (3.8-10.6) k/uL RBC 4.08 (3.80-5.40) m/uL Hgb 11.7 (11.4-16.0) gm/dL Hct 35.9 (34.0-46.0) % MCV 88.0 (80.0-100.0) fL MCH 28.7 (25.0-35.0) pg MCHC 32.6 (31.0-37.0) g/dL RDW 13.0 (11.5-15.5) % Plt Count 198 (150-450) k/uL Neutrophils % 52 % Lymphocytes % 37 % Monocytes % 5 % Eosinophils % 3 % Basophils % 1 % Neutrophils # 4.1 (1.3-7.7) k/uL Lymphocytes # 2.9 (1.0-4.8) k/uL Monocytes # 0.4 (0-1.0) k/uL Eosinophils # 0.2 (0-0.7) k/uL Basophils # 0.0 (0-0.2) k/uL Sodium 144 (137-145) mmol/L Potassium 4.2 (3.5-5.1) mmol/L Chloride 110 H (98-107) mmol/L Carbon Dioxide 23 (22-30) mmol/L Anion Gap 11 mmol/L BUN 10 (7-17) mg/dL Creatinine 0.80 (0.52-1.04) mg/dL Est GFR (CKD-EPI)AfAm >90 (>60 ml/min/1.73 sqM) Est GFR (CKD-EPI)NonAf >90 (>60 ml/min/1.73 sqM) Glucose 77 (74-99) mg/dL Calcium 9.1 (8.4-10.2) mg/dL Total Bilirubin <0.1 L (0.2-1.3) mg/dL AST 9 L (14-36) U/L ALT 15 (9-52) U/L Alkaline Phosphatase 43 (38-126) U/L Total Protein 6.2 L (6.3-8.2) g/dL Albumin 3.9 (3.5-5.0) g/dL Disposition Clinical Impression: Abscess Disposition: HOME SELF-CARE Condition: Good Instructions: Abscess (ED) Additional Instructions: Apply warm compresses to the site at least 3 times daily. Take medications as directed. Follow-up with your primary care physician for recheck as soon as possible. Return here immediately for any new, worsening, or concerning symptoms. Prescriptions: Acetaminophen-Codeine 300-30mg [Tylenol #3] 1 tab PO Q6H PRN #12 tablet PRN Reason: Pain Is patient prescribed a controlled substance at discharge?: Yes Referrals: Natty Finnegan MD [Primary Care Provider] - 1-2 days Time of Disposition: 19:24
[2017-05-29 18:46] LABS: Basophils % (A) 1 %; Eosinophils # (A) 0.2 k/uL (0-0.7); Eosinophils % (A) 3 %; HCT 35.9 % (34.0-46.0); HGB 11.7 gm/dL (11.4-16.0); Lymphocytes # (A) 2.9 k/uL (1.0-4.8); Lymphocytes % (A) 37 %; MCH 28.7 pg (25.0-35.0); MCHC 32.6 g/dL (31.0-37.0); Mean Platelet Volume 8.8; Monocytes # (A) 0.4 k/uL (0-1.0); Monocytes % (A) 5 %; Neutrophils # (A) 4.1 k/uL (1.3-7.7); Neutrophils % (A) 52 %; Platelet Count 198 k/uL (150-450); RBC 4.08 m/uL (3.80-5.40); WBC 7.9 k/uL (3.8-10.6)
[2017-05-29 18:50] LABS: ALT 15 U/L (9-52); AST 9 U/L (14-36); Albumin 3.9 g/dL (3.5-5.0); Alkaline Phosphatase 43 U/L (38-126); Anion Gap 11 mmol/L; Blood Urea Nitrogen 10 mg/dL (7-17); Calcium 9.1 mg/dL (8.4-10.2); Carbon Dioxide 23 mmol/L (22-30); Chloride 110 mmol/L (98-107); Glucose 77 mg/dL (74-99); Potassium 4.2 mmol/L (3.5-5.1); Sodium 144 mmol/L (137-145); Total Bilirubin <0.1 mg/dL (0.2-1.3); Total Protein 6.2 g/dL (6.3-8.2)
[2017-05-29 19:36] VITALS: BP 135/57; PULSE 70; RESP 18; TEMP 98.3
== END 2017-05-29 19:35 | disposition home or self-care (01) ==
LOC: EC 15:55
DX: L02.211 Cutaneous abscess of abdominal wall (principal); E07.9 Disorder of thyroid, unspecified; F31.9 Bipolar disorder, unspecified; F43.10 Post-traumatic stress disorder, unspecified; F17.200 Nicotine dependence, unspecified, uncomplicated; Z86.14 Personal history of Methicillin resistant Staphylococcus aureus infection; Z79.3 Long term (current) use of hormonal contraceptives; Z79.899 Other long term (current) drug therapy; Z91.048 Other nonmedicinal substance allergy status; Z88.1 Allergy status to other antibiotic agents; Z91.040 Latex allergy status; Z88.8 Allergy status to other drugs, medicaments and biological substances
CPT/HCPCS: 36415; 80053; 85025; 87040; 99284; 96374; 96361; J1885

== ENCOUNTER → 2017-06-24 | Outpatient (CLI) | payer OTHER ==
[2017-06-24 12:53] LABS: HCT 37.7 % (34.0-46.0); HGB 12.4 gm/dL (11.4-16.0); MCH 29.1 pg (25.0-35.0); MCHC 32.8 g/dL (31.0-37.0); Platelet Count 212 k/uL (150-450); RBC 4.24 m/uL (3.80-5.40); WBC 5.2 k/uL (3.8-10.6)
[2017-06-24 13:16] LABS: ALT 23 U/L (9-52); AST 14 U/L (14-36); Albumin 4.4 g/dL (3.5-5.0); Alkaline Phosphatase 44 U/L (38-126); Anion Gap 12 mmol/L; Blood Urea Nitrogen 9 mg/dL (7-17); Calcium 9.4 mg/dL (8.4-10.2); Carbon Dioxide 26 mmol/L (22-30); Chloride 104 mmol/L (98-107); Creatine Kinase 91 U/L (30-135); Glucose 101 mg/dL (74-99); Potassium 4.4 mmol/L (3.5-5.1); Sodium 142 mmol/L (137-145); Total Bilirubin 0.2 mg/dL (0.2-1.3)
[2017-06-24 13:33] LABS: T4, Free (Free Thyroxine) 0.74 ng/dL (0.78-2.19)
[2017-06-24 19:03] LABS: Iron Saturation 15.47 (12.00-45.00)
[2017-06-24 22:12] LABS: Hemoglobin A1C 5.2 % (4.0-6.0)
== END ==
LOC: LABWHC1 12:15
PROVIDERS: ATTEND Psychiatry & Neurology Pain Medicine
DX: Z01.818 Encounter for other preprocedural examination (principal); R53.83 Other fatigue
CPT/HCPCS: 36415; 80053; 82550; 82728; 83036; 83540; 83550; 84439; 84443; 84466; 84481; 85027; 93005

== ENCOUNTER 2017-07-27 18:13 | Emergency (ER) | payer OTHER ==
[2017-07-27 18:24] VITALS: RESP 16
--- NOTE | 2017-07-27 18:47 | ED ---
General Adult HPI - General Chief complaint: Skin/Abscess/Foreign Body Stated complaint: POSS MRSA RT LEG Time Seen by Provider: 07/27/17 18:32 Source: patient, RN notes reviewed Mode of arrival: ambulatory Limitations: no limitations - History of Present Illness Initial comments: 26-year-old female presents to the emergency department for a chief complaint of infection behind the right upper leg 2 days. Patient noticing yesterday and states the redness started to spread today. Patient states it is painful to touch. Patient denies fevers or chills at home. Patient states she has a history of MRSA. Patient has no other complaints at this time including shortness of breath, chest pain, abdominal pain, nausea or vomiting, headache, or visual changes. - Related Data Home Medications Medication Instructions Recorded Confirmed Norgestimate-Ethinyl Estradiol 1 tab PO DAILY 12/22/13 05/27/17 [Mononessa 28 Tablet] QUEtiapine FUMARATE [SEROquel] 300 mg PO HS 08/31/16 05/27/17 Ibuprofen [Motrin] 200 mg PO Q6HR PRN 09/01/16 05/27/17 LORazepam [Ativan] 1 mg PO TID PRN 11/10/16 05/27/17 Levothyroxine Sodium [Synthroid] 50 mcg PO QAM 11/10/16 05/27/17 Sertraline [Zoloft] 150 mg PO HS 03/12/17 05/27/17 Previous Rx's Medication Instructions Recorded Gabapentin [Neurontin] 300 mg PO BID #28 11/05/16 OXcarbazepine [Trileptal] 600 mg PO BID #28 tab 11/05/16 traZODone HCL [Desyrel] 200 mg PO HS #28 tab 11/05/16 Ibuprofen [Motrin] 600 mg PO Q8HR PRN #20 tab 05/27/17 Ondansetron Odt [Zofran Odt] 4 mg PO Q8HR PRN #20 tab 05/27/17 Sulfamethox-Tmp 800-160Mg [Bactrim 2 tab PO Q12HR #40 tab 05/27/17 DS 800-160 mg] Acetaminophen-Codeine 300-30mg 1 tab PO Q6H PRN #12 tablet 05/29/17 [Tylenol #3] Sulfamethox-Tmp 800-160Mg [Bactrim 2 tab PO Q12HR 10 Days #40 tab 07/27/17 DS 800-160 mg] Allergies Allergy/AdvReac Type Severity Reaction Status Date / Time adhesive tape Allergy Rash/Hives Verified 07/27/17 18:21 ceftriaxone sodium Allergy Rash/Hives Verified 07/27/17 18:21 [From Rocephin] latex Allergy Rash/Hives Verified 07/27/17 18:21 bupropion HCl AdvReac Hallucinati Verified 07/27/17 18:21 [From Wellbutrin] ons butalbital AdvReac Hallucinati Verified 07/27/17 18:21 ons Review of Systems ROS Statement: Those systems with pertinent positive or pertinent negative responses have been documented in the HPI. ROS Other: All systems not noted in ROS Statement are negative. Past Medical History Past Medical History: Asthma, Thyroid Disorder Additional Past Medical History / Comment(s): INSOMNIA; BODERLINE PERSONALITY DISORDER, back pain hx of syncope, MURMUR CHILD,BRONCHITIS,CARPAL TUNNEL, ARHTIRITS,UTI'S, MIGRAINES."herniated disc neck/back" colitis History of Any Multi-Drug Resistant Organisms: MRSA Date of last positivie culture/infection: 05/27/17 MDRO Source:: ABDOMEN Past Surgical History: Adenoidectomy, Tonsillectomy Additional Past Surgical History / Comment(s): teeth pulled. SEVERAL AREAS ON BODY HAD i&D FROM AREAS WITH MRSA Past Anesthesia/Blood Transfusion Reactions: No Reported Reaction Additional Past Anesthesia/Blood Transfusion Reaction / Comment(s): CLAUSTERPHOBIA Past Psychological History: Bipolar, PTSD Smoking Status: Current every day smoker Past Alcohol Use History: Rare Past Drug Use History: Marijuana - Past Family History Mother Family Medical History: Myocardial Infarction ([place]) Additional Family Medical History / Comment(s): AT AGE 45 FROM [place] Father Additional Family Medical History / Comment(s): WHEN PT WAS 9 MONTHS OLD FROM A BRAIN ANUERYSM General Exam Limitations: no limitations General appearance: alert, in no apparent distress Head exam: Present: atraumatic, normocephalic, normal inspection Eye exam: Present: normal appearance ENT exam: Present: normal exam, mucous membranes moist Neck exam: Present: normal inspection. Absent: tenderness, meningismus, lymphadenopathy Respiratory exam: Present: normal lung sounds bilaterally. Absent: respiratory distress, wheezes, rales, rhonchi, stridor Cardiovascular Exam: Present: regular rate, normal rhythm, normal heart sounds. Absent: systolic murmur, diastolic murmur, rubs, gallop, clicks Extremities exam: Present: full ROM (Full range of motion of the right knee including flexion and extension), tenderness (Tenderness to the redness posterior superior to the right knee.), normal capillary refill (Refill less than 2 seconds and pedal pulse 2+ and lower extremities bilaterally.), other ( There is an area of redness posterior superior to the right knee that measures about 9 cm x 4 cm in size. There is a small area of drainage.). Absent: joint swelling (No swelling in the right knee.) Course Vital Signs 07/27/17 07/27/17 18:21 19:32 Temperature 99.2 F 96.5 F L Pulse Rate 100 85 Respiratory 16 16 Rate Blood Pressure 103/62 116/55 O2 Sat by Pulse 97 98 Oximetry Procedures - Procedures Initial comment: Consent: Verbal consent obtained. Risks and benefits: risks, benefits and alternatives were discussed Type: abscess Location details: superior to the posterior right knee Anesthesia: local infiltration Local anesthetic: lidocaine 1% Anesthetic total: 1.5 ml Scalpel size: 11 blade using sterile technique Incision type: single straight Complexity: simple Drainage: none Patient tolerance: Patient tolerated the procedure well with no immediate complications Medical Decision Making - Medical Decision Making 26-year-old female presents to the emergency department for a chief complaint of infection posterior superior to the right knee. Patient states she noticed this 2 days ago and it has gone sightly bigger since then. Patient states she has a history of MRSA. Patient denies fevers. She is afebrile in the emergency department. On exam there is an area of redness superior posterior to the right knee measuring about 9 cm x 4 cm in width which appears to be cellulitis. There is a small area of drainage. Patient states she would still like to try to drain it more because she does not feel like it is draining completely. Wound was I&D. No purulent material was expelled to culture. Patient was given a dose of Bactrim here. She will be given a prescription of Bactrim. She will monitor for spreading redness and return if this occurs or pain in the knee or fever. She will follow up with primary care in 1-2 days. Disposition Clinical Impression: Abscess, Cellulitis Disposition: HOME SELF-CARE Condition: Good Instructions: Cellulitis (ED), Abscess Incision and Drainage (ED), Warm Compress or Soak (ED) Additional Instructions: Take antibiotic as directed. Do warm compresses as often as possible. Follow-up with primary care in 1-2 days. Please monitor for spreading redness, pain in the knee joint, or fever and return if these or any other worsening symptoms occur. Prescriptions: Sulfamethox-Tmp 800-160Mg [Bactrim DS 800-160 mg] 2 tab PO Q12HR 10 Days #40 tab Is patient prescribed a controlled substance at d/c from ED?: No Referrals: Natty Finnegan MD [Primary Care Provider] - 1-2 days Time of Disposition: 19:29
[2017-07-27] MEDS ORDERED: LIDOCAINE 1% INJ 10MG/ML (20 ML MDV) SQ ONE (18:58)
[2017-07-27] MEDS ORDERED: SULFAMETHOX-TMP 800-160MG 1 EACH TAB PO STA (19:17)
[2017-07-27 19:33] VITALS: BP 116/55; PULSE 85; TEMP 96.5
== END 2017-07-27 20:00 | disposition home or self-care (01) ==
LOC: EC 18:13
DX: L02.415 Cutaneous abscess of right lower limb (principal); L03.115 Cellulitis of right lower limb; E07.9 Disorder of thyroid, unspecified; F31.9 Bipolar disorder, unspecified; F43.10 Post-traumatic stress disorder, unspecified; F17.200 Nicotine dependence, unspecified, uncomplicated; Z86.14 Personal history of Methicillin resistant Staphylococcus aureus infection; Z79.3 Long term (current) use of hormonal contraceptives; Z79.899 Other long term (current) drug therapy; Z91.048 Other nonmedicinal substance allergy status; Z88.1 Allergy status to other antibiotic agents; Z91.040 Latex allergy status; Z88.8 Allergy status to other drugs, medicaments and biological substances; Z88.5 Allergy status to narcotic agent
CPT/HCPCS: 99283; 10060; J2001

== ENCOUNTER 2017-07-30 14:39 | Emergency (ER) | payer OTHER ==
[2017-07-30] MEDS ORDERED: diphenhydrAMINE 50 MG/ML 1 ML VIAL IVP STA (15:22)
[2017-07-30] MEDS ORDERED: SODIUM CHLORIDE 0.9% 1,000 ML IV STA ×2 (15:22)
[2017-07-30] MEDS ORDERED: METOCLOPRAMIDE 5 MG/ML 2 ML VIAL IVP STA (15:22)
[2017-07-30] MEDS ORDERED: KETOROLAC 30 MG/ML 1 ML VIAL IVP STA (15:22)
[2017-07-30] MEDS ORDERED: PANTOPRAZOLE 40 MG/10 ML VIAL IVP STA (15:22)
--- NOTE | 2017-07-30 15:27 | ED ---
Abdominal Pain HPI - General Chief Complaint: Abdominal Pain Stated Complaint: Abd Pain Time Seen by Provider: 07/30/17 14:47 Source: patient, EMS, RN notes reviewed, old records reviewed Mode of arrival: EMS Limitations: no limitations - History of Present Illness Initial Comments: 26-year-old female presents today to complain of left upper quadrant abdominal pain, nausea vomiting. She reports the symptoms started today. She is currently on her menstrual cycle. She denies any fever or chills. No diarrhea. Normal urination bowel habits. Denies any concern for STDs or vaginal discharge. Patient relates the pain seems mainly in her abdomen no pain radiating towards her back. - Related Data Home Medications Medication Instructions Recorded Confirmed Levothyroxine Sodium [Synthroid] 50 mcg PO QAM 11/10/16 07/30/17 Sertraline [Zoloft] 150 mg PO HS 03/12/17 07/30/17 Gabapentin [Neurontin] 300 mg PO BID 07/30/17 07/30/17 Norgestimate-Ethinyl Estradiol 1 tab PO DAILY 07/30/17 07/30/17 [Sprintec 28 Day Tablet] OXcarbazepine [Trileptal] 150 mg PO BID 07/30/17 07/30/17 OXcarbazepine [Trileptal] 600 mg PO BID 07/30/17 07/30/17 Phentermine HCl [Adipex-P] 18.75 mg PO BID@0800,1300 07/30/17 07/30/17 QUEtiapine FUMARATE [SEROquel] 400 mg PO HS 07/30/17 07/30/17 Previous Rx's Medication Instructions Recorded traZODone HCL [Desyrel] 200 mg PO HS #28 tab 11/05/16 Sulfamethox-Tmp 800-160Mg [Bactrim 2 tab PO Q12HR 10 Days #40 tab 07/27/17 DS 800-160 mg] Omeprazole 40 mg PO DAILY #20 capsule. 07/30/17 Ondansetron Odt [Zofran Odt] 4 mg PO Q8HR PRN #12 tab 07/30/17 Allergies Allergy/AdvReac Type Severity Reaction Status Date / Time adhesive tape Allergy Rash/Hives Verified 07/30/17 15:04 ceftriaxone sodium Allergy Rash/Hives Verified 07/30/17 15:04 [From Rocephin] latex Allergy Rash/Hives Verified 07/30/17 15:04 bupropion HCl AdvReac Hallucinati Verified 07/30/17 15:04 [From Wellbutrin] ons butalbital AdvReac Hallucinati Verified 07/30/17 15:04 ons Review of Systems ROS Statement: Those systems with pertinent positive or pertinent negative responses have been documented in the HPI. ROS Other: All systems not noted in ROS Statement are negative. Past Medical History Past Medical History: Asthma, Thyroid Disorder Additional Past Medical History / Comment(s): INSOMNIA; BODERLINE PERSONALITY DISORDER, back pain hx of syncope, MURMUR CHILD,BRONCHITIS,CARPAL TUNNEL, ARHTIRITS,UTI'S, MIGRAINES."herniated disc neck/back" colitis History of Any Multi-Drug Resistant Organisms: MRSA Date of last positivie culture/infection: 05/27/17 MDRO Source:: ABDOMEN Past Surgical History: Adenoidectomy, Tonsillectomy Additional Past Surgical History / Comment(s): teeth pulled. SEVERAL AREAS ON BODY HAD i&D FROM AREAS WITH MRSA Past Anesthesia/Blood Transfusion Reactions: No Reported Reaction Additional Past Anesthesia/Blood Transfusion Reaction / Comment(s): CLAUSTERPHOBIA Past Psychological History: Bipolar, PTSD Smoking Status: Current every day smoker Past Alcohol Use History: Rare Past Drug Use History: Marijuana - Past Family History Mother Family Medical History: Myocardial Infarction ([place]) Additional Family Medical History / Comment(s): AT AGE 45 FROM [place] Father Additional Family Medical History / Comment(s): WHEN PT WAS 9 MONTHS OLD FROM A BRAIN ANUERYSM General Exam - General Exam Comments Initial Comments: 26 year old . Female. Alert and oriented. Does appear in moderate discomfort. General: Well appearing, well nourished, in no distress. Oriented x 3, normal mood and affect . Ambulating without difficulty. Skin: Good turgor, no rash, unusual bruising or prominent lesions Hair: Normal texture and distribution. HEENT: Head: Normocephalic, atraumatic, no visible or palpable masses, depressions, or scaring. Neck: Supple, without lesions, bruits, or adenopathy, thyroid non-enlarged and non-tender Heart: No cardiomegaly or thrills; regular rate and rhythm, no murmur or gallop Lungs: Clear to auscultation and percussion Abdomen: Bowel sounds normal, no tenderness, organomegaly, masses, or hernia Back: Spine normal without deformity or tenderness, no CVA tenderness Rectal: Normal sphincter tone, no hemorrhoids or masses palpable Extremities: No amputations or deformities, cyanosis, edema or varicosities, peripheral pulses intact Musculoskeletal: Normal gait and station. No misalignment, asymmetry, crepitation, defects, tenderness, masses, effusions, decreased range of motion, instability, atrophy or abnormal strength or tone in the head, neck, spine, ribs , pelvis or extremities. Neurologic: CN 2-12 normal. Sensation to pain, touch, and proprioception normal. DTRs normal in upper and lower extremities. No pathologic reflexes. Psychiatric: Oriented X3, intact recent and remote memory, judgment and insight , normal mood and affect. Limitations: no limitations Course Vital Signs 07/30/17 07/30/17 14:42 17:11 Temperature 99.4 F 98.8 F Pulse Rate 91 74 Respiratory 22 16 Rate Blood Pressure 137/66 122/57 O2 Sat by Pulse 99 98 Oximetry Medical Decision Making - Medical Decision Making 26 year old female with Left upper quadrant pain, vomiting for one day. She has minimal tenderness on exam. She has normal labs, and was given pepcid, reglan and benadryl. She reports improvement of her symptoms and resting comfortably in bed. Patient likely has gastrtis or peptic ulcer. Discussed starting on protonix and clear liquid diet. Discussed PCP and GI follow up. UA does show blood, however patietn is on menstrual cycle. Culture obtained. - Lab Data Result diagrams: 07/30/17 15:02 07/30/17 15:02 Lab Results 07/30/17 07/30/17 07/30/17 Range/Units 15:02 15:02 15:02 WBC 8.1 (3.8-10.6) k/uL RBC 4.31 (3.80-5.40) m/uL Hgb 12.6 (11.4-16.0) gm/dL Hct 37.3 (34.0-46.0) % MCV 86.5 (80.0-100.0) fL MCH 29.3 (25.0-35.0) pg MCHC 33.8 (31.0-37.0) g/dL RDW 13.1 (11.5-15.5) % Plt Count 211 (150-450) k/uL Neutrophils % 57 % Lymphocytes % 32 % Monocytes % 5 % Eosinophils % 2 % Basophils % 0 % Neutrophils # 4.6 (1.3-7.7) k/uL Lymphocytes # 2.6 (1.0-4.8) k/uL Monocytes # 0.4 (0-1.0) k/uL Eosinophils # 0.2 (0-0.7) k/uL Basophils # 0.0 (0-0.2) k/uL PT 9.5 (9.0-12.0) sec INR 1.0 (<1.2) APTT 20.4 L (22.0-30.0) sec Sodium 139 (137-145) mmol/L Potassium 4.6 (3.5-5.1) mmol/L Chloride 108 H (98-107) mmol/L Carbon Dioxide 19 L (22-30) mmol/L Anion Gap 12 mmol/L BUN 9 (7-17) mg/dL Creatinine 0.78 (0.52-1.04) mg/dL Est GFR (CKD-EPI)AfAm >90 (>60 ml/min/1.73 sqM) Est GFR (CKD-EPI)NonAf >90 (>60 ml/min/1.73 sqM) Glucose 82 (74-99) mg/dL Calcium 9.0 (8.4-10.2) mg/dL Total Bilirubin 0.3 (0.2-1.3) mg/dL AST 22 (14-36) U/L ALT 31 (9-52) U/L Alkaline Phosphatase 49 (38-126) U/L Total Protein 6.9 (6.3-8.2) g/dL Albumin 4.4 (3.5-5.0) g/dL Amylase 45 (30-110) U/L Lipase 106 (23-300) U/L Urine Color Urine Appearance (Clear) Urine pH (5.0-8.0) Ur Specific [place] (1.001-1.035) Urine Protein (Negative) Urine Glucose (UA) (Negative) Urine Ketones (Negative) Urine Blood (Negative) Urine Nitrite (Negative) Urine Bilirubin (Negative) Urine Urobilinogen (<2.0) mg/dL Ur Leukocyte Esterase (Negative) Urine RBC (0-5) /hpf Urine WBC (0-5) /hpf Ur Squamous Epith Cells (0-4) /hpf Urine Bacteria (None) /hpf Urine Mucus (None) /hpf 07/30/17 Range/Units 15:02 WBC (3.8-10.6) k/uL RBC (3.80-5.40) m/uL Hgb (11.4-16.0) gm/dL Hct (34.0-46.0) % MCV (80.0-100.0) fL MCH (25.0-35.0) pg MCHC (31.0-37.0) g/dL RDW (11.5-15.5) % Plt Count (150-450) k/uL Neutrophils % % Lymphocytes % % Monocytes % % Eosinophils % % Basophils % % Neutrophils # (1.3-7.7) k/uL Lymphocytes # (1.0-4.8) k/uL Monocytes # (0-1.0) k/uL Eosinophils # (0-0.7) k/uL Basophils # (0-0.2) k/uL PT (9.0-12.0) sec INR (<1.2) APTT (22.0-30.0) sec Sodium (137-145) mmol/L Potassium (3.5-5.1) mmol/L Chloride (98-107) mmol/L Carbon Dioxide (22-30) mmol/L Anion Gap mmol/L BUN (7-17) mg/dL Creatinine (0.52-1.04) mg/dL Est GFR (CKD-EPI)AfAm (>60 ml/min/1.73 sqM) Est GFR (CKD-EPI)NonAf (>60 ml/min/1.73 sqM) Glucose (74-99) mg/dL Calcium (8.4-10.2) mg/dL Total Bilirubin (0.2-1.3) mg/dL AST (14-36) U/L ALT (9-52) U/L Alkaline Phosphatase (38-126) U/L Total Protein (6.3-8.2) g/dL Albumin (3.5-5.0) g/dL Amylase (30-110) U/L Lipase (23-300) U/L Urine Color Light Red Urine Appearance Clear (Clear) Urine pH 6.0 (5.0-8.0) Ur Specific [place] 1.018 (1.001-1.035) Urine Protein 1+ H (Negative) Urine Glucose (UA) Negative (Negative) Urine Ketones Negative (Negative) Urine Blood Large H (Negative) Urine Nitrite Positive H (Negative) Urine Bilirubin Negative (Negative) Urine Urobilinogen <2.0 (<2.0) mg/dL Ur Leukocyte Esterase Trace H (Negative) Urine RBC >182 H (0-5) /hpf Urine WBC 40 H (0-5) /hpf Ur Squamous Epith Cells 2 (0-4) /hpf Urine Bacteria Moderate H (None) /hpf Urine Mucus Rare H (None) /hpf Disposition Clinical Impression: Gastritis Disposition: HOME SELF-CARE Condition: Good Instructions: Gastritis (ED) Additional Instructions: Patient advised to follow-up with primary care provider. Take the medication as prescribed. Clear liquid diet for the next 1-2 days. Prescriptions: Omeprazole 40 mg PO DAILY #20 capsule. Ondansetron Odt [Zofran Odt] 4 mg PO Q8HR PRN #12 tab PRN Reason: Nausea Is patient prescribed a controlled substance at d/c from ED?: No When asked, does pt state using other controlled substances?: No If prescribed controlled substance>3 days was MAPS reviewed?: No If opioid is for acute pain is fill amount 7 days or less?: No If Rx opioid, was Start Talking consent form obtained?: No Referrals: Natty Finnegan MD [Primary Care Provider] - 1-2 days Time of Disposition: 16:30
[2017-07-30 15:38] LABS: Basophils % (A) 0 %; Eosinophils # (A) 0.2 k/uL (0-0.7); Eosinophils % (A) 2 %; HCT 37.3 % (34.0-46.0); HGB 12.6 gm/dL (11.4-16.0); Lymphocytes # (A) 2.6 k/uL (1.0-4.8); Lymphocytes % (A) 32 %; MCH 29.3 pg (25.0-35.0); MCHC 33.8 g/dL (31.0-37.0); MCV 86.5 fL (80.0-100.0); Mean Platelet Volume 10.1; Monocytes # (A) 0.4 k/uL (0-1.0); Monocytes % (A) 5 %; Neutrophils # (A) 4.6 k/uL (1.3-7.7); Neutrophils % (A) 57 %; Platelet Count 211 k/uL (150-450); RBC 4.31 m/uL (3.80-5.40); RDW 13.1 % (11.5-15.5); WBC 8.1 k/uL (3.8-10.6)
[2017-07-30 15:46] LABS: ALT 31 U/L (9-52); AST 22 U/L (14-36); Albumin 4.4 g/dL (3.5-5.0); Alkaline Phosphatase 49 U/L (38-126); Amylase 45 U/L (30-110); Anion Gap 12 mmol/L; Blood Urea Nitrogen 9 mg/dL (7-17); Carbon Dioxide 19 mmol/L (22-30); Chloride 108 mmol/L (98-107); Glucose 82 mg/dL (74-99); Lipase 106 U/L (23-300); Potassium 4.6 mmol/L (3.5-5.1); Sodium 139 mmol/L (137-145); Total Bilirubin 0.3 mg/dL (0.2-1.3); Total Protein 6.9 g/dL (6.3-8.2)
[2017-07-30 15:49] LABS: Appearance,Urine Clear (Clear); Bacteria,Urine Moderate /hpf; Bilirubin,Urine Negative (Negative); Blood,Urine Large (Negative); Color,Urine Light Red; Glucose,Urine (UA) Negative (Negative); Ketones,Urine Negative (Negative); Leukocyte Esterase,Urine Trace (Negative); Mucus,Urine Rare /hpf; Nitrite,Urine Positive (Negative); Protein,Urine 1+ (Negative); RBC,Urine >182 /hpf (0-5); Specific Gravity,Urine 1.018 (1.001-1.035); Squamous Epithelial Cell,Urine 2 /hpf (0-4); Urobilinogen,Urine <2.0 mg/dL (<2.0); WBC,Urine 40 /hpf (0-5)
--- NOTE | 2017-07-30 15:53 | XR ---
EXAMINATION TYPE: XR chest 2V DATE OF EXAM: 07/30/2017 COMPARISON: 09/10/2016 HISTORY: Left upper quadrant pain for 3 days. History of asthma. TECHNIQUE: Frontal and lateral views of the chest are obtained. FINDINGS: There is no focal air space opacity, pleural effusion, or pneumothorax seen. The cardiac silhouette size is within normal limits. The osseous structures are intact. IMPRESSION: No acute cardiopulmonary process.
--- NOTE | 2017-07-30 15:53 | XR ---
EXAMINATION TYPE: XR KUB DATE OF EXAM: 07/30/2017 3:49 PM CLINICAL HISTORY: Left upper quadrant pain for 3 days worse in severity today. TECHNIQUE: Two Upright KUB images of the abdomen are obtained. COMPARISON: Abdominal x-ray September 14, 2016. FINDINGS: Scattered gas is seen in non-distended small bowel loops. Gas and fecal material is seen in non-distended colon. There is no visceromegaly, pneumoperitoneum, or abnormal calcification apprecia umberto. The lung bases are clear and the osseous structures are intact. IMPRESSION: Overall nonobstructive bowel gas pattern. No significant change from prior.
[2017-07-30 16:04] LABS: Prothrombin Time 9.5 sec (9.0-12.0)
[2017-07-30 16:06] LABS: Partial Thromboplastin Time 20.4 sec (22.0-30.0)
[2017-07-30 17:12] VITALS: BP 122/57; PULSE 74; RESP 16; TEMP 98.8
== END 2017-07-30 17:12 | disposition home or self-care (01) ==
LOC: EC 14:39
DX: K29.70 Gastritis, unspecified, without bleeding (principal); E07.9 Disorder of thyroid, unspecified; F31.9 Bipolar disorder, unspecified; F17.200 Nicotine dependence, unspecified, uncomplicated; Z86.14 Personal history of Methicillin resistant Staphylococcus aureus infection; Z88.1 Allergy status to other antibiotic agents; Z88.8 Allergy status to other drugs, medicaments and biological substances; Z91.040 Latex allergy status; Z91.048 Other nonmedicinal substance allergy status; Z79.3 Long term (current) use of hormonal contraceptives; Z79.899 Other long term (current) drug therapy
CPT/HCPCS: 99285; 96374; 96375 ×3; 96361 ×2; 36415; 80053; 82150; 83690; 85025; 85610; 85730; 81001; 71046; 74018; J1200; J2765; J1885; C9113

== ENCOUNTER 2017-11-17 19:44 | Emergency (ER) | payer OTHER ==
[2017-11-17 19:53] VITALS: RESP 18
--- NOTE | 2017-11-17 20:34 | ED ---
Fall HPI - General Chief Complaint: Fall Stated Complaint: fall of about 6 feet Time Seen by Provider: 11/17/17 19:59 Source: patient, RN notes reviewed Mode of arrival: ambulatory Limitations: no limitations - History of Present Illness Initial Comments: This is a 27-year-old female presents to the emergency department with chief complaint of fall injury. Patient states she was sitting on a scaffolding approximately 5-6 feet up in the air this afternoon. She states that she swung her left leg onto the metal bar in an attempt to get down when the scaffolding began to fall over. Patient states that she fell and landed on her right side. Patient states this incident happened at approximately 1-3 PM this afternoon. Patient complains of right thigh pain, right elbow pain, right shoulder pain and right-sided neck pain. She denies hitting her head. Denies loss of consciousness. Denies nausea or vomiting, fevers or chills, chest pain or shortness of breath, abdominal pain. Denies back pain. - Related Data Home Medications Medication Instructions Recorded Confirmed Levothyroxine Sodium [Synthroid] 50 mcg PO QAM 11/10/16 07/30/17 Sertraline [Zoloft] 150 mg PO HS 03/12/17 07/30/17 Gabapentin [Neurontin] 300 mg PO BID 07/30/17 07/30/17 Norgestimate-Ethinyl Estradiol 1 tab PO DAILY 07/30/17 07/30/17 [Sprintec 28 Day Tablet] OXcarbazepine [Trileptal] 150 mg PO BID 07/30/17 07/30/17 OXcarbazepine [Trileptal] 600 mg PO BID 07/30/17 07/30/17 Phentermine HCl [Adipex-P] 18.75 mg PO BID@0800,1300 07/30/17 07/30/17 QUEtiapine FUMARATE [SEROquel] 400 mg PO HS 07/30/17 07/30/17 Previous Rx's Medication Instructions Recorded traZODone HCL [Desyrel] 200 mg PO HS #28 tab 11/05/16 Sulfamethox-Tmp 800-160Mg [Bactrim 2 tab PO Q12HR 10 Days #40 tab 07/27/17 DS 800-160 mg] Omeprazole 40 mg PO DAILY #20 capsule. 07/30/17 Ondansetron Odt [Zofran Odt] 4 mg PO Q8HR PRN #12 tab 07/30/17 Allergies Allergy/AdvReac Type Severity Reaction Status Date / Time adhesive tape Allergy Rash/Hives Verified 11/17/17 19:53 ceftriaxone sodium Allergy Rash/Hives Verified 11/17/17 19:53 [From Rocephin] latex Allergy Rash/Hives Verified 11/17/17 19:53 bupropion HCl AdvReac Hallucinati Verified 11/17/17 19:53 [From Wellbutrin] ons butalbital AdvReac Hallucinati Verified 11/17/17 19:53 ons Review of Systems ROS Statement: Those systems with pertinent positive or pertinent negative responses have been documented in the HPI. ROS Other: All systems not noted in ROS Statement are negative. Past Medical History Past Medical History: Asthma, Thyroid Disorder Additional Past Medical History / Comment(s): INSOMNIA; BODERLINE PERSONALITY DISORDER, back pain hx of syncope, MURMUR CHILD,BRONCHITIS,CARPAL TUNNEL, ARHTIRITS,UTI'S, MIGRAINES."herniated disc neck/back" colitis History of Any Multi-Drug Resistant Organisms: MRSA Date of last positivie culture/infection: 05/27/17 MDRO Source:: ABDOMEN Past Surgical History: Adenoidectomy, Tonsillectomy Additional Past Surgical History / Comment(s): teeth pulled. SEVERAL AREAS ON BODY HAD i&D FROM AREAS WITH MRSA Past Anesthesia/Blood Transfusion Reactions: No Reported Reaction Additional Past Anesthesia/Blood Transfusion Reaction / Comment(s): CLAUSTERPHOBIA Past Psychological History: Anxiety, Bipolar, Depression, PTSD Smoking Status: Current every day smoker Past Alcohol Use History: Daily Past Drug Use History: Marijuana - Past Family History Mother Family Medical History: Myocardial Infarction ([place]) Additional Family Medical History / Comment(s): AT AGE 45 FROM [place] Father Additional Family Medical History / Comment(s): WHEN PT WAS 9 MONTHS OLD FROM A BRAIN ANUERYSM General Exam - General Exam Comments Initial Comments: General: Awake and alert, well-developed; in no apparent distress. Patient walking about the ED room drinking a large pop from [employer]. HEENT: Head atraumatic, normocephalic. Pupils are equal, round and reactive to light. Extraocular movements intact. Oropharynx moist without erythema or exudate. Neck: Supple. Normal ROM. Tenderness on palpation of right cervical musculature. No bony point tenderness. Cardiovascular: Regular rate and rhythm. No murmurs, rubs or gallops. Chest symmetrical. Respiratory: Lungs clear to auscultation bilaterally. No wheezes, rales or rhonchi. Normal respiratory effort with no use of accessory muscles. Musculoskeletal: Normal range of motion bilateral upper and lower extremities. There is a linear abrasion to the right posterior thigh. Abrasion and contusion proximal to the right elbow. Sensation is intact. Pulses are 2+ equal and palpable bilaterally. Skin: [place], warm and dry without rashes. Neurological: Alert and oriented x3. CN II-XII grossly intact. Speech is fluent and answers are appropriate. No focal neuro deficits. Psychiatric: Normal mood and affect. No overt signs of depression or anxiety noted. Limitations: no limitations Course Vital Signs 11/17/17 19:48 Temperature 98.3 F Pulse Rate 101 H Respiratory 18 Rate Blood Pressure 135/65 O2 Sat by Pulse 98 Oximetry Medical Decision Making - Medical Decision Making This is a 27-year-old female who presents to the emergency department chief complaint of fall injury. Patient reports neck pain, right shoulder pain, right elbow pain and right thigh pain. No loss of consciousness, no head or back pain. No abdominal pain, chest pain or shortness of breath, nausea or vomiting. Patient is bearing weight and ambulating well. She has normal range of motion of all extremities. She is neurovascularly intact. Patient sustained a superficial abrasion to the posterior right thigh, superficial abrasion and contusion to the right elbow. X-ray of the right shoulder was obtained which revealed no abnormalities. Patient does have tenderness on palpation of the right cervical musculature without bony point tenderness. X- ray of the cervical spine reveals no acute abnormalities. Patient will be discharged home at this time. Instructed the patient to use ice, rest and Tylenol or ibuprofen as needed. Instructed patient to follow-up with her primary care provider. She is in agreement with plan and voices understanding. Vital signs are stable and patient is in no acute distress. All questions answered. - Radiology Data Radiology results: report reviewed, image reviewed X-ray right shoulder impression: Negative right shoulder exam. X-ray cervical spine impression: Negative cervical spine exam. Disposition Clinical Impression: Fall, Abrasion, Arm contusion, Neck pain, Shoulder pain Disposition: HOME SELF-CARE Condition: Good Instructions: Abrasion (ED), Acute Neck Pain (ED), Shoulder Pain (ED), Contusion in Adults (ED) Additional Instructions: Please follow up with primary care provider within 1-2 days. Return to emergency department if symptoms should worsen or any concerns arise. Is patient prescribed a controlled substance at d/c from ED?: No Referrals: Natty Finnegan MD [Primary Care Provider] - 1-2 days Time of Disposition: 20:52
--- NOTE | 2017-11-17 20:37 | XR ---
EXAMINATION TYPE: XR cervical spine comp DATE OF EXAM: 11/17/2017 COMPARISON: NONE HISTORY: Pain TECHNIQUE: 5 views FINDINGS: Vertebra have normal spacing and alignment. Posterior elements are intact. Atlantoaxial fac et joint is normal. There are no cervical ribs. Neural foramina appear widely patent. IMPRESSION: Negative cervical spine exam.
--- NOTE | 2017-11-17 20:38 | XR ---
EXAMINATION TYPE: XR shoulder complete RT DATE OF EXAM: 11/17/2017 COMPARISON: NONE HISTORY: Shoulder pain TECHNIQUE: 3 views FINDINGS: I see no fracture nor dislocation. Joint spaces are normal. There are no pathologic calcifi cations. IMPRESSION: Negative right shoulder exam.
[2017-11-17 21:24] VITALS: BP 124/66; PULSE 84; TEMP 97.9
== END 2017-11-17 21:22 | disposition home or self-care (01) ==
LOC: EC 19:44
DX: S50.01XA Contusion of right elbow, initial encounter (principal); S70.311A Abrasion, right thigh, initial encounter; M54.2 Cervicalgia; M25.511 Pain in right shoulder; E07.9 Disorder of thyroid, unspecified; F31.9 Bipolar disorder, unspecified; F41.9 Anxiety disorder, unspecified; F17.200 Nicotine dependence, unspecified, uncomplicated; Z86.14 Personal history of Methicillin resistant Staphylococcus aureus infection; Z88.1 Allergy status to other antibiotic agents; Z88.8 Allergy status to other drugs, medicaments and biological substances; Z91.040 Latex allergy status; Z91.048 Other nonmedicinal substance allergy status; Z79.3 Long term (current) use of hormonal contraceptives; Z79.899 Other long term (current) drug therapy; W17.89XA Other fall from one level to another, initial encounter
CPT/HCPCS: 72050; 99283

== ENCOUNTER → 2017-12-16 | Outpatient (CLI) | payer OTHER | END | disposition home or self-care (01) | LOC: LABWHC1 14:54 | PROVIDERS: ATTEND Nurse Practitioner | DX: F31.81 Bipolar II disorder (principal) | CPT/HCPCS: 36415; 80183 ==

== ENCOUNTER 2018-01-12 17:54 | Emergency (ER) | payer OTHER ==
[2018-01-12 18:10] VITALS: TEMP 99
[2018-01-12 18:56] LABS: Basophils % (A) 0 %; Eosinophils # (A) 0.2 k/uL (0-0.7); Eosinophils % (A) 2 %; HGB 12.8 gm/dL (11.4-16.0); Lymphocytes # (A) 2.5 k/uL (1.0-4.8); Lymphocytes % (A) 31 %; MCHC 33.7 g/dL (31.0-37.0); MCV 88.9 fL (80.0-100.0); Mean Platelet Volume 8.3; Monocytes # (A) 0.4 k/uL (0-1.0); Monocytes % (A) 5 %; Neutrophils # (A) 4.8 k/uL (1.3-7.7); Neutrophils % (A) 59 %; Platelet Count 221 k/uL (150-450); RBC 4.27 m/uL (3.80-5.40); RDW 13.1 % (11.5-15.5); WBC 8.1 k/uL (3.8-10.6)
[2018-01-12 19:16] LABS: ALT 14 U/L (9-52); AST 36 U/L (14-36); Albumin 4.2 g/dL (3.5-5.0); Alkaline Phosphatase 43 U/L (38-126); Anion Gap 9 mmol/L; Blood Urea Nitrogen 10 mg/dL (7-17); Calcium 9.1 mg/dL (8.4-10.2); Carbon Dioxide 22 mmol/L (22-30); Chloride 107 mmol/L (98-107); Glucose 85 mg/dL (74-99); Potassium 3.8 mmol/L (3.5-5.1); Sodium 138 mmol/L (137-145); Total Bilirubin 0.3 mg/dL (0.2-1.3); Total Protein 7.1 g/dL (6.3-8.2)
[2018-01-12 20:02] LABS: HCG,Quantitative Serum 13979.8 mIU/mL
--- NOTE | 2018-01-12 20:11 | ED ---
Abdominal Pain HPI - General Chief Complaint: Abdominal Pain Stated Complaint: ABDOMINAL PAIN, Time Seen by Provider: 01/12/18 18:10 Source: patient Mode of arrival: ambulatory Limitations: no limitations - History of Present Illness Initial Comments: 27 yo female A1 with no significant past ill history presenting today for chief complaint of cramping x few hours. Pt stats she is what she thinks around 5-6 weeks . Pt not certain of LMP, thinks 1st or 2nd week in November. Pt states she has had a positive test, no OBGYN appointment scheduled at this time. Pt states that a few hours ago she began to have pelvic cramping no vaginal bleeding-states feels like period cramping. Pt denies vaginal discharge, abdominal pain. Pt does admit to some nausea and vomiting for to the past 2 weeks, denies fever, chills, diarrhea. She states she experienced these symptoms with last . Remainder of ROS (-), patient denies any recent shortness of breath, chest pain, back pain, abdominal pain, numbness or tingling , dysuria or hematuria, constipation or diarrhea, headaches or visual changes, or any other complaints. Upon arrival pt appears well no acute distress. VS within acceptable limits. - Related Data Home Medications Medication Instructions Recorded Confirmed Levothyroxine Sodium [Synthroid] 50 mcg PO QAM 11/10/16 11/17/17 Sertraline [Zoloft] 150 mg PO HS 03/12/17 11/17/17 Gabapentin [Neurontin] 300 mg PO BID 07/30/17 11/17/17 Norgestimate-Ethinyl Estradiol 1 tab PO DAILY 07/30/17 11/17/17 [Sprintec 28 Day Tablet] OXcarbazepine [Trileptal] 150 mg PO BID 07/30/17 11/17/17 OXcarbazepine [Trileptal] 600 mg PO BID 07/30/17 11/17/17 Phentermine HCl [Adipex-P] 18.75 mg PO BID@0800,1300 07/30/17 11/17/17 QUEtiapine FUMARATE [SEROquel] 400 mg PO HS 07/30/17 11/17/17 Previous Rx's Medication Instructions Recorded traZODone HCL [Desyrel] 200 mg PO HS #28 tab 11/05/16 Sulfamethox-Tmp 800-160Mg [Bactrim 2 tab PO Q12HR 10 Days #40 tab 07/27/17 DS 800-160 mg] Omeprazole 40 mg PO DAILY #20 capsule. 07/30/17 Ondansetron Odt [Zofran Odt] 4 mg PO Q8HR PRN #12 tab 07/30/17 Allergies Allergy/AdvReac Type Severity Reaction Status Date / Time adhesive tape Allergy Rash/Hives Verified 01/12/18 18:10 ceftriaxone sodium Allergy Rash/Hives Verified 01/12/18 18:10 [From Rocephin] latex Allergy Rash/Hives Verified 01/12/18 18:10 bupropion HCl AdvReac Hallucinati Verified 01/12/18 18:10 [From Wellbutrin] ons butalbital AdvReac Hallucinati Verified 01/12/18 18:10 ons Review of Systems ROS Statement: Those systems with pertinent positive or pertinent negative responses have been documented in the HPI. ROS Other: All systems not noted in ROS Statement are negative. Constitutional: Denies: fever, chills ENT: Denies: ear pain, throat pain Respiratory: Denies: cough, dyspnea, wheezes, hemoptysis, stridor Cardiovascular: Denies: chest pain, palpitations Gastrointestinal: Reports: abdominal pain (lower pelvic cramping), nausea, vomiting Genitourinary: Denies: urgency, dysuria, frequency, hematuria Musculoskeletal: Denies: back pain Skin: Denies: rash, lesions Neurological: Denies: headache, weakness, numbness, paresthesias, confusion Past Medical History Past Medical History: Asthma, Thyroid Disorder Additional Past Medical History / Comment(s): INSOMNIA; BODERLINE PERSONALITY DISORDER, back pain hx of syncope, MURMUR CHILD,BRONCHITIS,CARPAL TUNNEL, ARHTIRITS,UTI'S, MIGRAINES."herniated disc neck/back" colitis History of Any Multi-Drug Resistant Organisms: MRSA Date of last positivie culture/infection: 05/27/17 MDRO Source:: ABDOMEN Past Surgical History: Adenoidectomy, Tonsillectomy Additional Past Surgical History / Comment(s): teeth pulled. SEVERAL AREAS ON BODY HAD i&D FROM AREAS WITH MRSA Past Anesthesia/Blood Transfusion Reactions: No Reported Reaction Additional Past Anesthesia/Blood Transfusion Reaction / Comment(s): CLAUSTERPHOBIA Past Psychological History: Anxiety, Bipolar, Depression, PTSD Smoking Status: Current every day smoker Past Alcohol Use History: Daily Past Drug Use History: Marijuana - Past Family History Mother Family Medical History: Myocardial Infarction ([place]) Additional Family Medical History / Comment(s): AT AGE 45 FROM [place] Father Additional Family Medical History / Comment(s): WHEN PT WAS 9 MONTHS OLD FROM A BRAIN ANUERYSM General Exam - General Exam Comments Initial Comments: General: The patient is awake and alert, in no distress, and does not appear acutely ill. Eye: Pupils are equal, round and reactive to light, extra-ocular movements are intact. No nystagmus. There is normal conjunctiva bilaterally. No signs of icterus. Ears, nose, mouth and throat: There are moist mucous membranes and no oral lesions. Neck: The neck is supple, there is no tenderness or JVD. Cardiovascular: There is a regular rate and rhythm. No murmur, rub or gallop is appreciated. Respiratory: Lungs are clear to auscultation, respirations are non-labored, breath sounds are equal. No wheezes, stridor, rales, or rhonchi. Gastrointestinal: No noted diaphoresis, jaundice, pallor, protecting postures or squirming. Symmetrical pigmentation of abdomen without signs of inflammation. Striae noted. Umbilicus mildline, inverted without swelling. No dilated veins. Abdomen contour obese, no noted abdominal distention. No visible masses. No peristalsis , aortic pulsations, or ventral hernia. Bowel sounds audible in all 4 quadrants , unremarkable. No friction rubs or venous hums. No epigastic, hepatic or abdominal bruits. No tenderness to light or deep palpation of abdomen. Liver edge, not palpable. Spleen edge, right and left kidney not palpable. Superior bladder margin non-tender. Mild pelvic tenderness to palpation, no rigidity or guarding, tenderness is midline. Special Testing: Negative [place], [place], [place], Jose F, cutaneous hyperesthesia. Iliopsoas and obturator tests negative bilaterally. Negative Heel Jar test/ son sign. No CVA tenderness. Digital rectal exam deferred. Negative leal turners or cullens sign Musculoskeletal: Normal ROM, no tenderness. Strength 5/5. Sensation intact. Pulses equal bilaterally 2+. Neurological: A&O x 3. CN II-XII intact, There are no obvious motor or sensory deficits. Coordination appears grossly intact. Speech is normal. Skin: Skin is warm and dry and no rashes or lesions are noted. Psychiatric: Cooperative, appropriate mood & affect, normal judgment. : Normal external exam-no lesions, pink moist mucosa, thin clear d/c no vaginal odor. Cervix pink 3x3cm os closed. No d/c from os, no evidence of vaginal bleeding. No blood in vault. No adnexal tenderness. No uterine tenderness. Limitations: no limitations Course Vital Signs 01/12/18 01/12/18 18:07 21:30 Temperature 99.0 F Pulse Rate 92 81 Respiratory 20 16 Rate Blood Pressure 108/71 122/68 O2 Sat by Pulse 98 98 Oximetry Medical Decision Making - Medical Decision Making Lab unremarkable. Pt cramping is explained as mild,abdominal exam minimal tenderness. exam as noted above. No vaginal bleeding. HCG of ~13,900 correlates with early as does US revealing sac and pole intrauterine, no adnexal masses, no free fluid no torsion. Culture pending. UA ( -). Trichomonas (-). At this time i feel cramping is threatened . Pt is stable for discharge with primary care f/u and return for worsening symptoms or vaginal bleeding. Pt agreeable with plan and discharge. Case discussed with Dr. Toro who agreed with impression and plan. Pt discharged in stable condition. Patient verbalized understanding return primary. Denies questions at this time. - Lab Data Result diagrams: 01/12/18 18:38 01/12/18 18:38 Lab Results 01/12/18 01/12/18 01/12/18 Range/Units 18:38 18:38 20:45 WBC 8.1 (3.8-10.6) k/uL RBC 4.27 (3.80-5.40) m/uL Hgb 12.8 (11.4-16.0) gm/dL Hct 38.0 (34.0-46.0) % MCV 88.9 (80.0-100.0) fL MCH 30.0 (25.0-35.0) pg MCHC 33.7 (31.0-37.0) g/dL RDW 13.1 (11.5-15.5) % Plt Count 221 (150-450) k/uL Neutrophils % 59 % Lymphocytes % 31 % Monocytes % 5 % Eosinophils % 2 % Basophils % 0 % Neutrophils # 4.8 (1.3-7.7) k/uL Lymphocytes # 2.5 (1.0-4.8) k/uL Monocytes # 0.4 (0-1.0) k/uL Eosinophils # 0.2 (0-0.7) k/uL Basophils # 0.0 (0-0.2) k/uL Sodium 138 (137-145) mmol/L Potassium 3.8 (3.5-5.1) mmol/L Chloride 107 (98-107) mmol/L Carbon Dioxide 22 (22-30) mmol/L Anion Gap 9 mmol/L BUN 10 (7-17) mg/dL Creatinine 0.59 (0.52-1.04) mg/dL Est GFR (CKD-EPI)AfAm >90 (>60 ml/min/1.73 sqM) Est GFR (CKD-EPI)NonAf >90 (>60 ml/min/1.73 sqM) Glucose 85 (74-99) mg/dL Calcium 9.1 (8.4-10.2) mg/dL Total Bilirubin 0.3 (0.2-1.3) mg/dL AST 36 (14-36) U/L ALT 14 (9-52) U/L Alkaline Phosphatase 43 (38-126) U/L Total Protein 7.1 (6.3-8.2) g/dL Albumin 4.2 (3.5-5.0) g/dL HCG, Quant 85329.8 mIU/mL Urine Color Urine Appearance (Clear) Urine pH (5.0-8.0) Ur Specific [place] (1.001-1.035) Urine Protein (Negative) Urine Glucose (UA) (Negative) Urine Ketones (Negative) Urine Blood (Negative) Urine Nitrite (Negative) Urine Bilirubin (Negative) Urine Urobilinogen (<2.0) mg/dL Ur Leukocyte Esterase (Negative) Urine WBC (0-5) /hpf Ur Squamous Epith Cells (0-4) /hpf Amorphous Sediment (None) /hpf Urine Bacteria (None) /hpf Urine Mucus (None) /hpf Trichomonas Ag (Rapid) Negative (Negative) 01/12/18 Range/Units 21:00 WBC (3.8-10.6) k/uL RBC (3.80-5.40) m/uL Hgb (11.4-16.0) gm/dL Hct (34.0-46.0) % MCV (80.0-100.0) fL MCH (25.0-35.0) pg MCHC (31.0-37.0) g/dL RDW (11.5-15.5) % Plt Count (150-450) k/uL Neutrophils % % Lymphocytes % % Monocytes % % Eosinophils % % Basophils % % Neutrophils # (1.3-7.7) k/uL Lymphocytes # (1.0-4.8) k/uL Monocytes # (0-1.0) k/uL Eosinophils # (0-0.7) k/uL Basophils # (0-0.2) k/uL Sodium (137-145) mmol/L Potassium (3.5-5.1) mmol/L Chloride (98-107) mmol/L Carbon Dioxide (22-30) mmol/L Anion Gap mmol/L BUN (7-17) mg/dL Creatinine (0.52-1.04) mg/dL Est GFR (CKD-EPI)AfAm (>60 ml/min/1.73 sqM) Est GFR (CKD-EPI)NonAf (>60 ml/min/1.73 sqM) Glucose (74-99) mg/dL Calcium (8.4-10.2) mg/dL Total Bilirubin (0.2-1.3) mg/dL AST (14-36) U/L ALT (9-52) U/L Alkaline Phosphatase (38-126) U/L Total Protein (6.3-8.2) g/dL Albumin (3.5-5.0) g/dL HCG, Quant mIU/mL Urine Color Yellow Urine Appearance Cloudy H (Clear) Urine pH 7.0 (5.0-8.0) Ur Specific [place] 1.014 (1.001-1.035) Urine Protein Negative (Negative) Urine Glucose (UA) Negative (Negative) Urine Ketones Negative (Negative) Urine Blood Negative (Negative) Urine Nitrite Negative (Negative) Urine Bilirubin Negative (Negative) Urine Urobilinogen <2.0 (<2.0) mg/dL Ur Leukocyte Esterase Negative (Negative) Urine WBC <1 (0-5) /hpf Ur Squamous Epith Cells 2 (0-4) /hpf Amorphous Sediment Rare H (None) /hpf Urine Bacteria Rare H (None) /hpf Urine Mucus Rare H (None) /hpf Trichomonas Ag (Rapid) (Negative) Disposition Clinical Impression: Pelvic cramping, , Threatened Disposition: HOME SELF-CARE Condition: Good Instructions: Threatened Miscarriage (ED) Additional Instructions: Please use medication as discussed. Please follow-up with OBGYN in the next 7- 10 days. Please return to emergency room if the symptoms increase or worsen or for any other concerns, as discussed. Is patient prescribed a controlled substance at d/c from ED?: No Referrals: Natty Finnegan MD [Primary Care Provider] - 1-2 days Layla Garnett MD [STAFF PHYSICIAN] - 1-2 days Time of Disposition: 21:12
--- NOTE | 2018-01-12 20:28 | US ---
EXAMINATION TYPE: Transabdominal DATE OF EXAM: 05/14/17 COMPARISON: NONE CLINICAL HISTORY: pain. Unsure lmp, cramping EXAM PERFORMED: Transvaginal (TV) and Transabdominal (TA) EXAM MEASUREMENTS: GESTATIONAL AGE / DATING Dates by LMP: ( 7 weeks/4 days) EDC: 08/27/2018 Dates by Current Scan for: Unable to date by today's study MATERNAL ANATOMY Uterus: 9.2 x 4.7 x 4.2 Right Ovary: 2.5 x 1.7 x 1.8 cm Left Ovary: 3.7 x 2.4 x 2.6 cm Post CDS / Adnexa: free fluid Presence of free fluid: no Presence of corpus luteal cyst: left ovarian lesion - 2.2 x 2.0 x 2.1 cm Presence of subchorionic bleed: no GESTATION / SURVEY MSD: seen, unable to determine dates Yolk Sac (normal less than 6mm): Heart Rate: bpm Rhythm: IUP: Nuchal Translucency 10-14wks (normal less than 3mm): 2.3 mm Date of LMP: 11/20/2017. Beta HcG (if available): Not available at this time GS and YS seen. No CRL visualized. IMPRESSION: Intrauterine gestational sac with yolk sac. Follow-up exam is recommended in 14 days to confirm a uli ing fetus. 1.5 cm cyst on the left ovary.
[2018-01-12 21:28] LABS: Amorphous Sediment,Urine Rare /hpf; Appearance,Urine Cloudy (Clear); Bacteria,Urine Rare /hpf; Bilirubin,Urine Negative (Negative); Blood,Urine Negative (Negative); Color,Urine Yellow; Glucose,Urine (UA) Negative (Negative); Ketones,Urine Negative (Negative); Leukocyte Esterase,Urine Negative (Negative); Mucus,Urine Rare /hpf; Nitrite,Urine Negative (Negative); Protein,Urine Negative (Negative); Specific Gravity,Urine 1.014 (1.001-1.035); Squamous Epithelial Cell,Urine 2 /hpf (0-4); Urobilinogen,Urine <2.0 mg/dL (<2.0)
[2018-01-12 21:32] VITALS: BP 122/68; PULSE 81; RESP 16
[2018-01-14 15:55] LABS: C. trachomatis,PCR Negative (Neg,Equiv); Chlamydia trachomatis Source Vagina
[2018-01-14 16:08] LABS: N. gonorrhoeae,PCR Negative (Neg,Equiv); Neisseria Source Vagina
== END 2018-01-12 21:30 | disposition home or self-care (01) ==
LOC: EC 17:54
DX: O20.0 Threatened abortion (principal); E07.9 Disorder of thyroid, unspecified; F41.9 Anxiety disorder, unspecified; F32.9 Major depressive disorder, single episode, unspecified; F43.10 Post-traumatic stress disorder, unspecified; F17.200 Nicotine dependence, unspecified, uncomplicated; Z86.14 Personal history of Methicillin resistant Staphylococcus aureus infection; Z79.3 Long term (current) use of hormonal contraceptives; Z79.899 Other long term (current) drug therapy; Z91.048 Other nonmedicinal substance allergy status; Z88.1 Allergy status to other antibiotic agents; Z91.040 Latex allergy status; Z88.8 Allergy status to other drugs, medicaments and biological substances; Z3A.01 Less than 8 weeks gestation of pregnancy
CPT/HCPCS: 36415; 76801; 76817; 80053; 81001; 84702; 85025; 87491; 87591; 87808; 99284

== ENCOUNTER 2018-01-17 05:41 | Emergency (ER) | payer OTHER ==
[2018-01-17] MEDS ORDERED: ONDANSETRON 4 MG/2 ML VIAL IVP STA (06:01)
[2018-01-17] MEDS ORDERED: SODIUM CHLORIDE 0.9% 1,000 ML IV ONE (06:12)
[2018-01-17 06:15] LABS: Basophils # (A) 0.1 k/uL (0-0.2); Basophils % (A) 1 %; Eosinophils # (A) 0.1 k/uL (0-0.7); Eosinophils % (A) 1 %; HCT 41.3 % (34.0-46.0); HGB 13.7 gm/dL (11.4-16.0); Lymphocytes # (A) 3.1 k/uL (1.0-4.8); Lymphocytes % (A) 32 %; MCH 29.7 pg (25.0-35.0); MCHC 33.1 g/dL (31.0-37.0); MCV 89.7 fL (80.0-100.0); Mean Platelet Volume 8.5; Monocytes # (A) 0.6 k/uL (0-1.0); Monocytes % (A) 6 %; Neutrophils # (A) 5.4 k/uL (1.3-7.7); Neutrophils % (A) 56 %; Platelet Count 224 k/uL (150-450); RDW 12.7 % (11.5-15.5); WBC 9.5 k/uL (3.8-10.6)
[2018-01-17 06:25] LABS: ALT 37 U/L (9-52); AST 22 U/L (14-36); Albumin 4.1 g/dL (3.5-5.0); Alkaline Phosphatase 44 U/L (38-126); Amylase 38 U/L (30-110); Anion Gap 9 mmol/L; Blood Urea Nitrogen 6 mg/dL (7-17); Calcium 9.2 mg/dL (8.4-10.2); Carbon Dioxide 23 mmol/L (22-30); Chloride 107 mmol/L (98-107); Glucose 93 mg/dL (74-99); Lipase 58 U/L (23-300); Potassium 3.4 mmol/L (3.5-5.1); Sodium 139 mmol/L (137-145); Total Bilirubin 0.5 mg/dL (0.2-1.3); Total Protein 6.9 g/dL (6.3-8.2)
--- NOTE | 2018-01-17 06:33 | ED ---
Nausea/Vomiting/Diarrhea HPI - General Chief complaint: Nausea/Vomiting/Diarrhea Stated complaint: NVD Time Seen by Provider: 01/17/18 06:01 Source: patient Mode of arrival: ambulatory Limitations: no limitations - History of Present Illness MD complaint: nausea, vomiting, diarrhea Onset/Timin -: days(s) Description of Vomiting: watery Description of Diarrhea: water Associated Abdominal Pain: Yes Location: diffuse Severity: moderate Quality: cramping Improves with: none Worsens with: none Context: possible food poisoning Associated Symptoms: denies other symptoms - Related Data Home Medications Medication Instructions Recorded Confirmed Levothyroxine Sodium [Synthroid] 50 mcg PO QAM 11/10/16 11/17/17 Allergies Allergy/AdvReac Type Severity Reaction Status Date / Time adhesive tape Allergy Rash/Hives Verified 01/17/18 05:45 ceftriaxone sodium Allergy Rash/Hives Verified 01/17/18 05:45 [From Rocephin] latex Allergy Rash/Hives Verified 01/17/18 05:45 bupropion HCl AdvReac Hallucinati Verified 01/17/18 05:45 [From Wellbutrin] ons butalbital AdvReac Hallucinati Verified 01/17/18 05:45 ons Review of Systems ROS Statement: Those systems with pertinent positive or pertinent negative responses have been documented in the HPI. ROS Other: All systems not noted in ROS Statement are negative. Constitutional: Reports: weakness. Denies: fever, chills Respiratory: Denies: cough, dyspnea Cardiovascular: Denies: chest pain, palpitations, syncope Gastrointestinal: Reports: abdominal pain, nausea, vomiting, diarrhea. Denies: hematemesis, melena, hematochezia Genitourinary: Denies: dysuria, hematuria, abnormal menses Musculoskeletal: Denies: back pain Skin: Denies: rash Neurological: Denies: headache, weakness Past Medical History Past Medical History: Asthma, Thyroid Disorder Additional Past Medical History / Comment(s): INSOMNIA; BODERLINE PERSONALITY DISORDER, back pain hx of syncope, MURMUR CHILD,BRONCHITIS,CARPAL TUNNEL, ARHTIRITS,UTI'S, MIGRAINES."herniated disc neck/back" colitis History of Any Multi-Drug Resistant Organisms: MRSA Date of last positivie culture/infection: 05/27/17 MDRO Source:: ABDOMEN Past Surgical History: Adenoidectomy, Tonsillectomy Additional Past Surgical History / Comment(s): teeth pulled. SEVERAL AREAS ON BODY HAD i&D FROM AREAS WITH MRSA Past Anesthesia/Blood Transfusion Reactions: No Reported Reaction Additional Past Anesthesia/Blood Transfusion Reaction / Comment(s): CLAUSTERPHOBIA Past Psychological History: Anxiety, Bipolar, Depression, PTSD Smoking Status: Current every day smoker Past Alcohol Use History: Daily Past Drug Use History: Marijuana - Past Family History Mother Family Medical History: Myocardial Infarction ([place]) Additional Family Medical History / Comment(s): AT AGE 45 FROM [place] Father Additional Family Medical History / Comment(s): WHEN PT WAS 9 MONTHS OLD FROM A BRAIN ANUERYSM General Exam Limitations: no limitations General appearance: alert, in no apparent distress, obese Head exam: Present: atraumatic, normocephalic Eye exam: Present: normal appearance. Absent: scleral icterus, conjunctival injection ENT exam: Present: mucous membranes dry Respiratory exam: Present: normal lung sounds bilaterally. Absent: respiratory distress, wheezes, rales, rhonchi, stridor Cardiovascular Exam: Present: regular rate, normal rhythm, normal heart sounds. Absent: systolic murmur, diastolic murmur, rubs, gallop GI/Abdominal exam: Present: soft, hypoactive bowel sounds. Absent: distended, tenderness, guarding, rebound Extremities exam: Present: normal inspection, normal capillary refill. Absent: pedal edema, calf tenderness Back exam: Absent: CVA tenderness (R), CVA tenderness (L) Neurological exam: Present: alert Skin exam: Present: warm, dry, intact, normal color. Absent: rash Course Vital Signs 01/17/18 05:42 Temperature 98.9 F Pulse Rate 74 Respiratory 20 Rate Blood Pressure 140/89 O2 Sat by Pulse 100 Oximetry Medical Decision Making - Lab Data Result diagrams: 01/17/18 05:50 01/17/18 05:50 Lab Results 01/17/18 01/17/18 Range/Units 05:50 05:50 WBC 9.5 (3.8-10.6) k/uL RBC 4.60 (3.80-5.40) m/uL Hgb 13.7 (11.4-16.0) gm/dL Hct 41.3 (34.0-46.0) % MCV 89.7 (80.0-100.0) fL MCH 29.7 (25.0-35.0) pg MCHC 33.1 (31.0-37.0) g/dL RDW 12.7 (11.5-15.5) % Plt Count 224 (150-450) k/uL Neutrophils % 56 % Lymphocytes % 32 % Monocytes % 6 % Eosinophils % 1 % Basophils % 1 % Neutrophils # 5.4 (1.3-7.7) k/uL Lymphocytes # 3.1 (1.0-4.8) k/uL Monocytes # 0.6 (0-1.0) k/uL Eosinophils # 0.1 (0-0.7) k/uL Basophils # 0.1 (0-0.2) k/uL Sodium 139 (137-145) mmol/L Potassium 3.4 L (3.5-5.1) mmol/L Chloride 107 (98-107) mmol/L Carbon Dioxide 23 (22-30) mmol/L Anion Gap 9 mmol/L BUN 6 L (7-17) mg/dL Creatinine 0.49 L (0.52-1.04) mg/dL Est GFR (CKD-EPI)AfAm >90 (>60 ml/min/1.73 sqM) Est GFR (CKD-EPI)NonAf >90 (>60 ml/min/1.73 sqM) Glucose 93 (74-99) mg/dL Calcium 9.2 (8.4-10.2) mg/dL Total Bilirubin 0.5 (0.2-1.3) mg/dL AST 22 (14-36) U/L ALT 37 (9-52) U/L Alkaline Phosphatase 44 (38-126) U/L Total Protein 6.9 (6.3-8.2) g/dL Albumin 4.1 (3.5-5.0) g/dL Amylase 38 (30-110) U/L Lipase 58 (23-300) U/L Disposition Referrals: Natty Finnegan MD [Primary Care Provider] - 1-2 days
[2018-01-17 07:20] LABS: Appearance,Urine Cloudy (Clear); Bacteria,Urine Many /hpf; Bilirubin,Urine Negative (Negative); Blood,Urine Negative (Negative); Color,Urine Yellow; Glucose,Urine (UA) Negative (Negative); Ketones,Urine 1+ (Negative); Leukocyte Esterase,Urine Small (Negative); Mucus,Urine Many /hpf; Nitrite,Urine Positive (Negative); PH, Urine 6.5 (5.0-8.0); Protein,Urine 1+ (Negative); Specific Gravity,Urine 1.018 (1.001-1.035); Squamous Epithelial Cell,Urine 1 /hpf (0-4); WBC,Urine 10 /hpf (0-5)
--- NOTE | 2018-01-17 08:11 | ED ---
Medical Decision Making - Medical Decision Making Patient was signed out to me by Dr. Tineo at 7 AM. Patient was no longer nauseated and was willing to be discharged home. - Lab Data Result diagrams: 01/17/18 05:50 01/17/18 05:50 Lab Results 01/17/18 01/17/18 01/17/18 Range/Units 05:50 05:50 07:00 WBC 9.5 (3.8-10.6) k/uL RBC 4.60 (3.80-5.40) m/uL Hgb 13.7 (11.4-16.0) gm/dL Hct 41.3 (34.0-46.0) % MCV 89.7 (80.0-100.0) fL MCH 29.7 (25.0-35.0) pg MCHC 33.1 (31.0-37.0) g/dL RDW 12.7 (11.5-15.5) % Plt Count 224 (150-450) k/uL Neutrophils % 56 % Lymphocytes % 32 % Monocytes % 6 % Eosinophils % 1 % Basophils % 1 % Neutrophils # 5.4 (1.3-7.7) k/uL Lymphocytes # 3.1 (1.0-4.8) k/uL Monocytes # 0.6 (0-1.0) k/uL Eosinophils # 0.1 (0-0.7) k/uL Basophils # 0.1 (0-0.2) k/uL Sodium 139 (137-145) mmol/L Potassium 3.4 L (3.5-5.1) mmol/L Chloride 107 (98-107) mmol/L Carbon Dioxide 23 (22-30) mmol/L Anion Gap 9 mmol/L BUN 6 L (7-17) mg/dL Creatinine 0.49 L (0.52-1.04) mg/dL Est GFR (CKD-EPI)AfAm >90 (>60 ml/min/1.73 sqM) Est GFR (CKD-EPI)NonAf >90 (>60 ml/min/1.73 sqM) Glucose 93 (74-99) mg/dL Calcium 9.2 (8.4-10.2) mg/dL Total Bilirubin 0.5 (0.2-1.3) mg/dL AST 22 (14-36) U/L ALT 37 (9-52) U/L Alkaline Phosphatase 44 (38-126) U/L Total Protein 6.9 (6.3-8.2) g/dL Albumin 4.1 (3.5-5.0) g/dL Amylase 38 (30-110) U/L Lipase 58 (23-300) U/L Urine Color Yellow Urine Appearance Cloudy H (Clear) Urine pH 6.5 (5.0-8.0) Ur Specific [place] 1.018 (1.001-1.035) Urine Protein 1+ H (Negative) Urine Glucose (UA) Negative (Negative) Urine Ketones 1+ H (Negative) Urine Blood Negative (Negative) Urine Nitrite Positive H (Negative) Urine Bilirubin Negative (Negative) Urine Urobilinogen 2.0 (<2.0) mg/dL Ur Leukocyte Esterase Small H (Negative) Urine WBC 10 H (0-5) /hpf Ur Squamous Epith Cells 1 (0-4) /hpf Urine Bacteria Many H (None) /hpf Urine Mucus Many H (None) /hpf Urine HCG, Qual (Not Detectd) 01/17/18 Range/Units 07:00 WBC (3.8-10.6) k/uL RBC (3.80-5.40) m/uL Hgb (11.4-16.0) gm/dL Hct (34.0-46.0) % MCV (80.0-100.0) fL MCH (25.0-35.0) pg MCHC (31.0-37.0) g/dL RDW (11.5-15.5) % Plt Count (150-450) k/uL Neutrophils % % Lymphocytes % % Monocytes % % Eosinophils % % Basophils % % Neutrophils # (1.3-7.7) k/uL Lymphocytes # (1.0-4.8) k/uL Monocytes # (0-1.0) k/uL Eosinophils # (0-0.7) k/uL Basophils # (0-0.2) k/uL Sodium (137-145) mmol/L Potassium (3.5-5.1) mmol/L Chloride (98-107) mmol/L Carbon Dioxide (22-30) mmol/L Anion Gap mmol/L BUN (7-17) mg/dL Creatinine (0.52-1.04) mg/dL Est GFR (CKD-EPI)AfAm (>60 ml/min/1.73 sqM) Est GFR (CKD-EPI)NonAf (>60 ml/min/1.73 sqM) Glucose (74-99) mg/dL Calcium (8.4-10.2) mg/dL Total Bilirubin (0.2-1.3) mg/dL AST (14-36) U/L ALT (9-52) U/L Alkaline Phosphatase (38-126) U/L Total Protein (6.3-8.2) g/dL Albumin (3.5-5.0) g/dL Amylase (30-110) U/L Lipase (23-300) U/L Urine Color Urine Appearance (Clear) Urine pH (5.0-8.0) Ur Specific [place] (1.001-1.035) Urine Protein (Negative) Urine Glucose (UA) (Negative) Urine Ketones (Negative) Urine Blood (Negative) Urine Nitrite (Negative) Urine Bilirubin (Negative) Urine Urobilinogen (<2.0) mg/dL Ur Leukocyte Esterase (Negative) Urine WBC (0-5) /hpf Ur Squamous Epith Cells (0-4) /hpf Urine Bacteria (None) /hpf Urine Mucus (None) /hpf Urine HCG, Qual Detected (Not Detectd) Disposition Clinical Impression: Hyperemesis gravidarum Disposition: HOME SELF-CARE Condition: Good Instructions: Hyperemesis Gravidarum (ED) Additional Instructions: 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
[2018-01-17 08:22] VITALS: BP 124/70; PULSE 70; RESP 18; TEMP 98
== END 2018-01-17 08:30 | disposition home or self-care (01) ==
LOC: EC 05:41
DX: O21.0 Mild hyperemesis gravidarum (principal); O99.211 Obesity complicating pregnancy, first trimester; E07.9 Disorder of thyroid, unspecified; O99.331 Smoking (tobacco) complicating pregnancy, first trimester; F17.200 Nicotine dependence, unspecified, uncomplicated; Z3A.08 8 weeks gestation of pregnancy; Z79.899 Other long term (current) drug therapy; Z88.1 Allergy status to other antibiotic agents; Z91.040 Latex allergy status; Z88.8 Allergy status to other drugs, medicaments and biological substances; Z91.048 Other nonmedicinal substance allergy status
CPT/HCPCS: 36415; 80053; 82150; 83690; 85025; 81001; 81025; 87086; 99284; 96374; 96361; J2405

== ENCOUNTER 2018-02-21 22:19 | Emergency (ER) | payer OTHER ==
[2018-02-21] MEDS ORDERED: diphenhydrAMINE 50 MG/ML 1 ML VIAL IVP STA (22:57)
[2018-02-21] MEDS ORDERED: SODIUM CHLORIDE 0.9% 1,000 ML IV STA (22:57)
[2018-02-21] MEDS ORDERED: METOCLOPRAMIDE 5 MG/ML 2 ML VIAL IVP STA (22:57)
[2018-02-21 23:30] VITALS: TEMP 98.7
[2018-02-21 23:51] LABS: Basophils % (A) 0 %; Eosinophils # (A) 0.2 k/uL (0-0.7); Eosinophils % (A) 2 %; HCT 36.7 % (34.0-46.0); HGB 12.7 gm/dL (11.4-16.0); Lymphocytes # (A) 2.9 k/uL (1.0-4.8); Lymphocytes % (A) 26 %; MCH 30.5 pg (25.0-35.0); MCHC 34.6 g/dL (31.0-37.0); MCV 88.3 fL (80.0-100.0); Mean Platelet Volume 9.4; Monocytes # (A) 0.4 k/uL (0-1.0); Monocytes % (A) 4 %; Neutrophils # (A) 7.2 k/uL (1.3-7.7); Neutrophils % (A) 66 %; Platelet Count 210 k/uL (150-450); RBC 4.16 m/uL (3.80-5.40); RDW 12.7 % (11.5-15.5); WBC 10.9 k/uL (3.8-10.6)
[2018-02-22 00:08] LABS: ALT 31 U/L (9-52); AST 20 U/L (14-36); Albumin 3.9 g/dL (3.5-5.0); Alkaline Phosphatase 38 U/L (38-126); Amylase 49 U/L (30-110); Anion Gap 8 mmol/L; Blood Urea Nitrogen 5 mg/dL (7-17); Calcium 9.5 mg/dL (8.4-10.2); Carbon Dioxide 22 mmol/L (22-30); Chloride 108 mmol/L (98-107); Glucose 80 mg/dL (74-99); Lipase 67 U/L (23-300); Potassium 3.6 mmol/L (3.5-5.1); Sodium 138 mmol/L (137-145); Total Bilirubin 0.3 mg/dL (0.2-1.3); Total Protein 6.4 g/dL (6.3-8.2)
[2018-02-22 00:13] VITALS: RESP 18
[2018-02-22 00:58] LABS: Appearance,Urine Cloudy (Clear); Bacteria,Urine Moderate /hpf; Bilirubin,Urine Negative (Negative); Blood,Urine Negative (Negative); Color,Urine Yellow; Glucose,Urine (UA) Negative (Negative); Ketones,Urine 1+ (Negative); Leukocyte Esterase,Urine Small (Negative); Mucus,Urine Many /hpf; Nitrite,Urine Positive (Negative); PH, Urine 6.5 (5.0-8.0); Protein,Urine 1+ (Negative); Specific Gravity,Urine 1.013 (1.001-1.035); Squamous Epithelial Cell,Urine 12 /hpf (0-4); Urobilinogen,Urine <2.0 mg/dL (<2.0); WBC,Urine 7 /hpf (0-5)
[2018-02-22] MEDS ORDERED: AMOXICILLIN 500MG STARTER PACK 3 CAP BTL PO STA (01:30)
--- NOTE | 2018-02-22 01:33 | ED ---
Nausea/Vomiting/Diarrhea HPI - General Chief complaint: Nausea/Vomiting/Diarrhea Stated complaint: Dehydrated, 12 weeks preg Time Seen by Provider: 02/21/18 22:42 Source: patient Mode of arrival: ambulatory Limitations: no limitations - History of Present Illness Initial comments: 27-year-old female patient presents to the emergency department today for evaluation of nausea and vomiting. Patient states that she has been vomiting since early this morning. Patient denies any constipation or diarrhea with this. States that she is having some mild upper abdominal discomfort but denies any pelvic discomfort. She denies any abnormal vaginal bleeding or discharge. States that she is having some mild low back pain. She denies any fevers or chills with this. Denies any sick contacts or recent travel. She does report being 12 weeks . She has . She has been receiving care. Patient denies any recent rash, shortness breath, chest pain, diarrhea, constipation, back pain, numbness, tingling, dizziness, weakness, hematuria, dysuria, urinary urgency, urinary frequency, headache, visual changes , or any other complaints. - Related Data Home Medications Medication Instructions Recorded Confirmed Levothyroxine Sodium [Synthroid] 50 mcg PO DAILY@1000 11/10/16 02/21/18 Dmk-Ldrd-Nrtwl Acid 1 cap PO DAILY 02/21/18 02/21/18 [-U Capsule (formulary)] Previous Rx's Medication Instructions Recorded Amoxicillin 500 mg PO Q8H #30 capsule 02/22/18 Allergies Allergy/AdvReac Type Severity Reaction Status Date / Time adhesive tape Allergy Rash/Hives Verified 02/21/18 23:14 ceftriaxone sodium Allergy Rash/Hives Verified 02/21/18 23:14 [From Rocephin] latex Allergy Rash/Hives Verified 02/21/18 23:14 bupropion HCl AdvReac Hallucinati Verified 02/21/18 23:14 [From Wellbutrin] ons butalbital AdvReac Hallucinati Verified 02/21/18 23:14 ons Review of Systems ROS Statement: Those systems with pertinent positive or pertinent negative responses have been documented in the HPI. ROS Other: All systems not noted in ROS Statement are negative. Past Medical History Past Medical History: Asthma, Thyroid Disorder Additional Past Medical History / Comment(s): INSOMNIA; BODERLINE PERSONALITY DISORDER, back pain hx of syncope, MURMUR CHILD,BRONCHITIS,CARPAL TUNNEL, ARHTIRITS,UTI'S, MIGRAINES."herniated disc neck/back" colitis History of Any Multi-Drug Resistant Organisms: MRSA Date of last positivie culture/infection: 02/18/18 MDRO Source:: BREAST Past Surgical History: Adenoidectomy, Tonsillectomy Additional Past Surgical History / Comment(s): teeth pulled. SEVERAL AREAS ON BODY HAD i&D FROM AREAS WITH MRSA Past Anesthesia/Blood Transfusion Reactions: No Reported Reaction Additional Past Anesthesia/Blood Transfusion Reaction / Comment(s): CLAUSTERPHOBIA Past Psychological History: Anxiety, Bipolar, Depression, PTSD Smoking Status: Light tobacco smoker Past Alcohol Use History: None Reported Past Drug Use History: Marijuana - Past Family History Mother Family Medical History: Myocardial Infarction ([place]) Additional Family Medical History / Comment(s): AT AGE 45 FROM [place] Father Additional Family Medical History / Comment(s): WHEN PT WAS 9 MONTHS OLD FROM A BRAIN ANUERYSM General Exam Limitations: no limitations General appearance: alert, in no apparent distress, other (Physical well- developed, well-nourished adult female patient in no acute distress. Vital signs upon presentation are temperature 98.6F, pulse 85, respirations 18, blood pressure 136/84, pulse ox 98% on room air.) Eye exam: Present: normal appearance, PERRL, EOMI. Absent: scleral icterus, conjunctival injection, periorbital swelling ENT exam: Present: normal exam, normal oropharynx, mucous membranes moist Respiratory exam: Present: normal lung sounds bilaterally. Absent: respiratory distress, wheezes, rales, rhonchi, stridor Cardiovascular Exam: Present: regular rate, normal rhythm, normal heart sounds. Absent: systolic murmur, diastolic murmur, rubs, gallop, clicks GI/Abdominal exam: Present: soft, normal bowel sounds. Absent: distended, tenderness, guarding, rebound, rigid Back exam: Present: normal inspection. Absent: CVA tenderness (R), CVA tenderness (L) Neurological exam: Present: alert, oriented X3, CN II-XII intact Psychiatric exam: Present: normal affect, normal mood Skin exam: Present: warm, dry, intact, normal color. Absent: rash Course Vital Signs 02/21/18 02/21/18 02/21/18 22:30 23:28 23:29 Temperature 98.6 F 98.7 F Pulse Rate 85 100 Respiratory 18 16 Rate Blood Pressure 136/84 114/61 O2 Sat by Pulse 98 98 97 Oximetry 02/22/18 02/22/18 00:00 01:58 Temperature 98.7 F Pulse Rate 82 85 Respiratory 18 18 Rate Blood Pressure 98/77 108/72 O2 Sat by Pulse 98 98 Oximetry Medical Decision Making - Medical Decision Making 27-year-old female patient presented to the emergency department today for evaluation of nausea and vomiting. Patient is 12 weeks . Physical examination reveals soft nontender abdomen. No CVA tenderness. Labs reviewed and are relatively unremarkable however urine did show a cloudy appearance with 1+ protein, 1+ ketones, positive nitrite, small leukocyte esterase, 7 white blood cells, 12 squamous epithelial cells, moderate bacteria, and many mucus. We will treat patient with amoxicillin for urine results. We'll send this for culture. Upon reevaluation patient is feeling better. We will discharge home at this time to follow-up with her MANAGER OF INFORMATION and primary care physician for recheck. Return parameters were discussed in detail. She verbalizes understanding and agrees with this plan. - Lab Data Result diagrams: 02/21/18 22:49 02/21/18 22:49 Lab Results 02/21/18 02/21/18 02/22/18 Range/Units 22:49 22:49 00:36 WBC 10.9 H (3.8-10.6) k/uL RBC 4.16 (3.80-5.40) m/uL Hgb 12.7 (11.4-16.0) gm/dL Hct 36.7 (34.0-46.0) % MCV 88.3 (80.0-100.0) fL MCH 30.5 (25.0-35.0) pg MCHC 34.6 (31.0-37.0) g/dL RDW 12.7 (11.5-15.5) % Plt Count 210 (150-450) k/uL Neutrophils % 66 % Lymphocytes % 26 % Monocytes % 4 % Eosinophils % 2 % Basophils % 0 % Neutrophils # 7.2 (1.3-7.7) k/uL Lymphocytes # 2.9 (1.0-4.8) k/uL Monocytes # 0.4 (0-1.0) k/uL Eosinophils # 0.2 (0-0.7) k/uL Basophils # 0.0 (0-0.2) k/uL Sodium 138 (137-145) mmol/L Potassium 3.6 (3.5-5.1) mmol/L Chloride 108 H (98-107) mmol/L Carbon Dioxide 22 (22-30) mmol/L Anion Gap 8 mmol/L BUN 5 L (7-17) mg/dL Creatinine 0.49 L (0.52-1.04) mg/dL Est GFR (CKD-EPI)AfAm >90 (>60 ml/min/1.73 sqM) Est GFR (CKD-EPI)NonAf >90 (>60 ml/min/1.73 sqM) Glucose 80 (74-99) mg/dL Calcium 9.5 (8.4-10.2) mg/dL Total Bilirubin 0.3 (0.2-1.3) mg/dL AST 20 (14-36) U/L ALT 31 (9-52) U/L Alkaline Phosphatase 38 (38-126) U/L Total Protein 6.4 (6.3-8.2) g/dL Albumin 3.9 (3.5-5.0) g/dL Amylase 49 (30-110) U/L Lipase 67 (23-300) U/L Urine Color Yellow Urine Appearance Cloudy H (Clear) Urine pH 6.5 (5.0-8.0) Ur Specific [place] 1.013 (1.001-1.035) Urine Protein 1+ H (Negative) Urine Glucose (UA) Negative (Negative) Urine Ketones 1+ H (Negative) Urine Blood Negative (Negative) Urine Nitrite Positive H (Negative) Urine Bilirubin Negative (Negative) Urine Urobilinogen <2.0 (<2.0) mg/dL Ur Leukocyte Esterase Small H (Negative) Urine WBC 7 H (0-5) /hpf Ur Squamous Epith Cells 12 H (0-4) /hpf Urine Bacteria Moderate H (None) /hpf Urine Mucus Many H (None) /hpf Disposition Clinical Impression: Nausea and vomiting during Disposition: HOME SELF-CARE Condition: Good Instructions: Acute Nausea and Vomiting (ED) Additional Instructions: Start with clear liquid diet and advance as tolerated. Complete antibiotic prescription in full. Follow-up with your MANAGER OF INFORMATION for recheck as soon as possible, have repeat urinalysis performed once antibiotics are complete to ensure clearance of infection. Return to the emergency department immediately for any new, worsening, or concerning symptoms. Prescriptions: Amoxicillin 500 mg PO Q8H #30 capsule Is patient prescribed a controlled substance at d/c from ED?: No Referrals: Natty Finnegan MD [Primary Care Provider] - 1-2 days Time of Disposition: 01:33
[2018-02-22 02:00] VITALS: BP 108/72; PULSE 85
== END 2018-02-22 01:58 | disposition home or self-care (01) ==
LOC: EC 22:19
DX: O21.9 Vomiting of pregnancy, unspecified (principal); O99.89 Other specified diseases and conditions complicating pregnancy, childbirth and the puerperium; R19.7 Diarrhea, unspecified; O99.281 Endocrine, nutritional and metabolic diseases complicating pregnancy, first trimester; E86.0 Dehydration; M54.5 Low back pain; O99.331 Smoking (tobacco) complicating pregnancy, first trimester; F17.200 Nicotine dependence, unspecified, uncomplicated; E07.9 Disorder of thyroid, unspecified; Z87.19 Personal history of other diseases of the digestive system; Z86.14 Personal history of Methicillin resistant Staphylococcus aureus infection; Z79.899 Other long term (current) drug therapy; Z91.048 Other nonmedicinal substance allergy status; Z88.1 Allergy status to other antibiotic agents; Z91.040 Latex allergy status; Z88.8 Allergy status to other drugs, medicaments and biological substances; Z79.890 Hormone replacement therapy; Z3A.12 12 weeks gestation of pregnancy
CPT/HCPCS: 99284 ×2; 96374 ×2; 96375 ×2; 96361 ×3; 36415; 80053; 82150; 83690; 85025; 81001; J1200; J2765

== ENCOUNTER → 2018-02-27 | Outpatient (CLI) | payer OTHER ==
--- NOTE | 2018-02-27 11:45 | US ---
EXAMINATION TYPE: Transabdominal DATE OF EXAM: 05/14/17 COMPARISON: 01/12/2018 CLINICAL HISTORY: O46.91 BLEEDING/SPOTTING. spotting EXAM PERFORMED: Transabdominal (TA) EXAM MEASUREMENTS: GESTATIONAL AGE / DATING Dates by LMP: (14 weeks/1 days) EDC: 08/27/2018 Dates by Current Scan for: (12 weeks/4 days) EDC: 09/07/2018 MATERNAL ANATOMY Uterus: 12.7 x 7.9 x 6.9 cm Right Ovary: 2.5 x 1.7 x 1.4 cm Left Ovary: 3.5 x 2.4 x 2.9 cm Post CDS / Adnexa: no free fluid Presence of free fluid: no Presence of corpus luteal cyst: no Presence of subchorionic bleed: no GESTATION / SURVEY CRL: 6.1 cm (12 weeks/4 days) MSD: seen, not measured Yolk Sac (normal less than 6mm): 4.8 mm Heart Rate: 155 bpm Rhythm: Normal IUP: Live IUP Date of LMP: 11/20/2017, Beta HcG (if available): Not available at this time Single live IUP measuring 12 weeks 4 days. Left ovarian possible dominant follicle - 2.2 cm. IMPRESSION: Single live IUP with sonographic age of 12 weeks 4 days and estimated date of delivery of 09/07/2018, discordant with menstrual age.
== END | disposition home or self-care (01) ==
LOC: RADUSWWP 11:05
PROVIDERS: ATTEND Obstetrics & Gynecology
DX: O46.91 Antepartum hemorrhage, unspecified, first trimester (principal); Z3A.12 12 weeks gestation of pregnancy
CPT/HCPCS: 76801

== ENCOUNTER 2018-03-05 21:50 | Emergency (ER) | payer OTHER ==
[2018-03-05 22:15] VITALS: RESP 16; TEMP 98.6
[2018-03-05] MEDS ORDERED: ACETAMINOPHEN TAB 500 MG TAB PO STA (22:55)
[2018-03-05 23:20] LABS: Amorphous Sediment,Urine Rare /hpf; Appearance,Urine Cloudy (Clear); Bacteria,Urine Few /hpf; Bilirubin,Urine Negative (Negative); Blood,Urine Negative (Negative); Color,Urine Yellow; Glucose,Urine (UA) Negative (Negative); Ketones,Urine Negative (Negative); Leukocyte Esterase,Urine Trace (Negative); Mucus,Urine Rare /hpf; Nitrite,Urine Negative (Negative); Protein,Urine Negative (Negative); RBC,Urine 1 /hpf (0-5); Specific Gravity,Urine 1.015 (1.001-1.035); Squamous Epithelial Cell,Urine 15 /hpf (0-4); Urobilinogen,Urine <2.0 mg/dL (<2.0); WBC,Urine 6 /hpf (0-5)
[2018-03-05] MEDS ORDERED: MUPIROCIN 2% OINT 22 GM TUBE TOPICAL STA (23:28)
--- NOTE | 2018-03-05 23:28 | ED ---
Skin/Abscess/FB HPI - General Source: patient Mode of arrival: ambulatory Limitations: no limitations <Vivien Rachel - Last Filed: 03/06/18 03:34> <Pat Toro - Last Filed: 03/06/18 04:30> - General Chief complaint: Skin/Abscess/Foreign Body Stated complaint: poss MRSA Time Seen by Provider: 03/05/18 22:33 - History of Present Illness Initial comments: 27-year-old female patient presents to the emergency department today for evaluation of swelling and tenderness above the left eye. Patient states that she did have a MRSA infection to the left breast that a few weeks ago. States that she developed this earlier today and 5 hours became more painful and swollen so she presented here for further evaluation. Patient denies any fevers or chills this. States that she was unable to get any fluid to come out of the area with squeezing it. States that she is 13 weeks and is currently being treated for urinary tract infection with amoxicillin. She is not currently experiencing any urinary symptoms. Denies any abdominal pain, vaginal bleeding, or vaginal discharge. Patient denies any recent shortness breath, chest pain, abdominal pain, nausea, vomiting, diarrhea, constipation, back pain, numbness, tingling, dizziness, weakness, hematuria, dysuria, urinary urgency, urinary frequency, headache, visual changes, or any other complaints. ( Vivien Rachel) - Related Data Home Medications Medication Instructions Recorded Confirmed Levothyroxine Sodium [Synthroid] 50 mcg PO DAILY@1000 11/10/16 03/05/18 Qqa-Zyez-Eirnw Acid 1 cap PO DAILY 02/21/18 03/05/18 [-U Capsule (formulary)] Acetaminophen Tab [Tylenol] 325 mg PO DAILY 03/05/18 03/05/18 guaiFENesin SYRUP 100MG/5ML 200 mg PO Q12HR 03/05/18 03/05/18 [Robitussin] Previous Rx's Medication Instructions Recorded Amoxicillin 500 mg PO Q8H #30 capsule 02/22/18 Allergies Allergy/AdvReac Type Severity Reaction Status Date / Time adhesive tape Allergy Rash/Hives Verified 03/05/18 22:43 ceftriaxone sodium Allergy Rash/Hives Verified 03/05/18 22:43 [From Rocephin] latex Allergy Rash/Hives Verified 03/05/18 22:43 bupropion HCl AdvReac Hallucinati Verified 03/05/18 22:43 [From Wellbutrin] ons butalbital AdvReac Hallucinati Verified 03/05/18 22:43 ons Review of Systems ROS Other: All systems not noted in ROS Statement are negative. <Vivien Rachel M - Last Filed: 03/06/18 03:34> ROS Other: All systems not noted in ROS Statement are negative. <Pat Toro P - Last Filed: 03/06/18 04:30> ROS Statement: Those systems with pertinent positive or pertinent negative responses have been documented in the HPI. Past Medical History Past Medical History: Asthma, Thyroid Disorder Additional Past Medical History / Comment(s): INSOMNIA; BODERLINE PERSONALITY DISORDER, back pain hx of syncope, MURMUR CHILD,BRONCHITIS,CARPAL TUNNEL, ARHTIRITS,UTI'S, MIGRAINES."herniated disc neck/back" colitis History of Any Multi-Drug Resistant Organisms: MRSA Date of last positivie culture/infection: 02/18/18 MDRO Source:: BREAST Past Surgical History: Adenoidectomy, Tonsillectomy Additional Past Surgical History / Comment(s): teeth pulled. SEVERAL AREAS ON BODY HAD i&D FROM AREAS WITH MRSA Past Anesthesia/Blood Transfusion Reactions: No Reported Reaction Additional Past Anesthesia/Blood Transfusion Reaction / Comment(s): CLAUSTERPHOBIA Past Psychological History: Anxiety, Bipolar, Depression, PTSD Smoking Status: Light tobacco smoker Past Alcohol Use History: None Reported Past Drug Use History: Marijuana - Past Family History Mother Family Medical History: Myocardial Infarction ([place]) Additional Family Medical History / Comment(s): AT AGE 45 FROM [place] Father Additional Family Medical History / Comment(s): WHEN PT WAS 9 MONTHS OLD FROM A BRAIN ANUERYSM <Vivien Rachel - Last Filed: 03/06/18 03:34> General Exam Limitations: no limitations General appearance: alert, in no apparent distress, other (This is a well- developed, well-nourished adult female patient in no acute distress. Vital signs upon presentation are temperature 98.6F, pulse 103, respirations 16, blood pressure 132/74, pulse ox 98% on room air.) Respiratory exam: Present: normal lung sounds bilaterally. Absent: respiratory distress, wheezes, rales, rhonchi, stridor Cardiovascular Exam: Present: regular rate, normal rhythm, normal heart sounds. Absent: systolic murmur, diastolic murmur, rubs, gallop, clicks Neurological exam: Present: alert, oriented X3, CN II-XII intact Psychiatric exam: Present: normal affect, normal mood Skin exam: Present: warm, dry, intact, normal color, other (Patient has tiny 0.5 cm x 0.5 cm abscess to the left forehead. There is surrounding tenderness. No erythema.). Absent: rash <Vivien Rachel - Last Filed: 03/06/18 03:34> Vital Signs 03/05/18 03/05/18 22:09 23:45 Temperature 98.6 F Pulse Rate 103 H 89 Respiratory 16 16 Rate Blood Pressure 132/74 128/83 O2 Sat by Pulse 98 100 Oximetry Medical Decision Making <Vivien Rachel - Last Filed: 03/06/18 03:34> <Pat Toro - Last Filed: 03/06/18 04:30> - Medical Decision Making 27-year-old female patient percents emergency department today for evaluation of swelling and tenderness to the left forehead. Physical examination reveals a tiny abscess consistent with a pimple. Patient did have cloudy urine so we did check this, does appear to be improving, she is currently taking amoxicillin for UTI. Patient is instructed to apply warm compresses to the area. She'll be given Bactroban ointment to apply 3 times a day. She is instructed to purchase Hibiclens [id number] to wash with. She is instructed follow up with her primary care physician for recheck in 1-2 days. Return parameters discussed in detail. She verbalizes understanding and agrees with this plan (Vivien Rachel) I was available for consultation in the emergency department. The history and physical exam were done by the midlevel provider. I was consulted for this patient's care. I reviewed the case with the midlevel provider and based on their presentation of the patient, I agree with the assessment, medical decision making and plan of care as documented. (Pat Toro) - Lab Data Lab Results 03/05/18 Range/Units 23:02 Urine Color Yellow Urine Appearance Cloudy H (Clear) Urine pH 6.0 (5.0-8.0) Ur Specific [place] 1.015 (1.001-1.035) Urine Protein Negative (Negative) Urine Glucose (UA) Negative (Negative) Urine Ketones Negative (Negative) Urine Blood Negative (Negative) Urine Nitrite Negative (Negative) Urine Bilirubin Negative (Negative) Urine Urobilinogen <2.0 (<2.0) mg/dL Ur Leukocyte Esterase Trace H (Negative) Urine RBC 1 (0-5) /hpf Urine WBC 6 H (0-5) /hpf Ur Squamous Epith Cells 15 H (0-4) /hpf Amorphous Sediment Rare H (None) /hpf Urine Bacteria Few H (None) /hpf Urine Mucus Rare H (None) /hpf Disposition Is patient prescribed a controlled substance at d/c from ED?: No Time of Disposition: 23:28 <Vivien Rachel - Last Filed: 03/06/18 03:34> <Pat Toro - Last Filed: 03/06/18 04:30> Clinical Impression: Abscess Disposition: HOME SELF-CARE Condition: Good Instructions (If sedation given, give patient instructions): Mupirocin (On the skin), Abscess (ED) Additional Instructions: Apply warm compresses to the area 20 minutes at a time four times daily. Apply ointment three times daily. Follow up with your primary care physician for recheck in 1-2 days. Return immediately for any new, worsening, or concerning symptoms. Referrals: Natty Finnegan MD [Primary Care Provider] - 1-2 days
[2018-03-05 23:47] VITALS: BP 128/83; PULSE 89
[2018-03-06] MEDS ORDERED: MUPIROCIN 2% OINT 22 GM TUBE TOPICAL SCH (09:00)
== END 2018-03-05 23:48 | disposition home or self-care (01) ==
LOC: EC 21:50
DX: O99.711 Diseases of the skin and subcutaneous tissue complicating pregnancy, first trimester (principal); L02.01 Cutaneous abscess of face; O23.41 Unspecified infection of urinary tract in pregnancy, first trimester; O99.281 Endocrine, nutritional and metabolic diseases complicating pregnancy, first trimester; E07.9 Disorder of thyroid, unspecified; F17.200 Nicotine dependence, unspecified, uncomplicated; Z88.1 Allergy status to other antibiotic agents; Z88.8 Allergy status to other drugs, medicaments and biological substances; Z91.040 Latex allergy status; Z91.09 Other allergy status, other than to drugs and biological substances; Z79.891 Long term (current) use of opiate analgesic; Z79.899 Other long term (current) drug therapy; Z86.14 Personal history of Methicillin resistant Staphylococcus aureus infection; Z87.39 Personal history of other diseases of the musculoskeletal system and connective tissue; Z3A.13 13 weeks gestation of pregnancy
CPT/HCPCS: 81001; 99283

== ENCOUNTER 2018-03-11 19:40 | Emergency (ER) | payer OTHER ==
[2018-03-11 19:51] VITALS: RESP 18
[2018-03-11] MEDS ORDERED: SODIUM CHLORIDE 0.9% 500 ML 500 ML IV STA (20:18)
--- NOTE | 2018-03-11 20:28 | ED ---
General Adult HPI <Waldemar Ace - Last Filed: 03/12/18 02:08> - General Source: patient, RN notes reviewed, old records reviewed Mode of arrival: ambulatory Limitations: no limitations <Gabriel Ann - Last Filed: 03/15/18 11:58> - General Chief complaint: Skin/Abscess/Foreign Body Stated complaint: Abscess under arm Time Seen by Provider: 03/11/18 19:54 - History of Present Illness Initial comments: 27-year-old patient currently 14 weeks and 4 days dated by LMP and ultrasound presents to ED with abscess in the right axilla. Patient reports that she has had this abscess for approximately 3 days and follows up with infectious disease doctor Roman, at this time patient is not on antibiotics. Patient product demonstrator is Dr. Layla Garnett. Patient reports that within the last 24 hours per abscess under her right arm has grown larger and more painful. She has noticed a small amount of purulent drainage from it. Patient states that she has had some chills but no fevers at home. Patient denies any abdominal pain or vaginal bleeding. Patient denies any chest pain or shortness of breath. Patient states that she has had some nausea without emesis. Patient denies all other complaints. Systemic: Pt denies fatigue, myalgia, fever, rash. Pt denies weakness, night sweats, weight loss. Neuro: Pt denies headache, visual disturbances, syncope or pre-syncope. HEENT: Pt denies ocular discharge or irritation, otalgia, rhinorrhea, pharyngitis or notable lymphadenopathy. Cardiopulmonary: Pt denies chest pain, SOB, heart palpitations, dyspnea on exertion. Abdominal/GI: Pt denies abdominal pain, v/d. : Pt denies dysuria, burning w/ urination, frequency/urgency. Denies new onset urinary or bowel incontinence. MSK: Pt denies myalgia, loss of strength or function in extremities. Neuro: Pt denies new onset weakness, paresthesias. Gu: Pt denies vaginal bleeding or discharge. (Gabriel Ann) - Related Data Home Medications Medication Instructions Recorded Confirmed Levothyroxine Sodium [Synthroid] 50 mcg PO DAILY 11/10/16 03/11/18 Zlp-Rovn-Mnjog Acid 1 cap PO DAILY 02/21/18 03/11/18 [-U Capsule (formulary)] Allergies Allergy/AdvReac Type Severity Reaction Status Date / Time adhesive tape Allergy Rash/Hives Verified 03/11/18 23:25 ceftriaxone sodium Allergy Rash/Hives Verified 03/11/18 23:25 [From Rocephin] latex Allergy Rash/Hives Verified 03/11/18 23:25 bupropion HCl AdvReac Hallucinati Verified 03/11/18 23:25 [From Wellbutrin] ons butalbital AdvReac Hallucinati Verified 03/11/18 23:25 ons Review of Systems ROS Other: All systems not noted in ROS Statement are negative. <Waldemar Ace - Last Filed: 03/12/18 02:08> ROS Other: All systems not noted in ROS Statement are negative. <Gabriel Ann - Last Filed: 03/15/18 11:58> ROS Statement: Those systems with pertinent positive or pertinent negative responses have been documented in the HPI. Past Medical History Past Medical History: Asthma, Thyroid Disorder Additional Past Medical History / Comment(s): INSOMNIA; BODERLINE PERSONALITY DISORDER, back pain hx of syncope, MURMUR CHILD,BRONCHITIS,CARPAL TUNNEL, ARHTIRITS,UTI'S, MIGRAINES."herniated disc neck/back" colitis History of Any Multi-Drug Resistant Organisms: MRSA Date of last positivie culture/infection: 02/18/18 MDRO Source:: BREAST Past Surgical History: Adenoidectomy, Tonsillectomy Additional Past Surgical History / Comment(s): teeth pulled. SEVERAL AREAS ON BODY HAD i&D FROM AREAS WITH MRSA Past Anesthesia/Blood Transfusion Reactions: No Reported Reaction Additional Past Anesthesia/Blood Transfusion Reaction / Comment(s): CLAUSTERPHOBIA Past Psychological History: Anxiety, Bipolar, Depression, PTSD Smoking Status: Light tobacco smoker Past Alcohol Use History: None Reported Past Drug Use History: Marijuana - Past Family History Mother Family Medical History: Myocardial Infarction ([place]) Additional Family Medical History / Comment(s): AT AGE 45 FROM [place] Father Additional Family Medical History / Comment(s): WHEN PT WAS 9 MONTHS OLD FROM A BRAIN ANUERYSM <Gabriel Ann - Last Filed: 03/15/18 11:58> General Exam <Waldemar Ace - Last Filed: 03/12/18 02:08> Limitations: no limitations <Gabriel Ann - Last Filed: 03/15/18 11:58> - General Exam Comments Initial Comments: Constitutional: NAD, AOX3, Pt has pleasant affect. HEENT: NC/AT, trachea midline, neck supple, no lymphadenopathy. Posterior pharynx non erythematous, without exudates. External ears appear normal, without discharge. Mucous membranes moist. Eyes PERRLA, EOM intact. There is no scleral icterus. No pallor noted. Cardiopulmonary: RRR, no murmurs, rubs or gallops, no JVD noted. Lungs CTAB in anterior and posterior davison. No peripheral edema. Abdominal exam: Abdomen soft and non-distended. Abdomen non-tender to palpation in all 4 quadrants. Bowel sounds active in LLQ. No hepatosplenomegaly. No ecchymosis Neuro: CN II-XII grossly intact. No nuchal rigidity. MSK: approximately 2cm abscess noted in R axillae. Small amount of purulent drainage noted. No posterior calf tenderness bilaterally, homans sign negative bilaterally. Posterior tibialis and radial pulse +2 bilaterally. Sensation intact in upper and lower extremities. Full active ROM in upper and lower extremities, 5/5 stregnth. (Gabriel Ann) Vital Signs 03/11/18 03/11/18 03/12/18 19:47 22:05 02:03 Temperature 100.3 F H 99 F 98.5 F Pulse Rate 98 89 84 Respiratory 18 18 18 Rate Blood Pressure 137/71 134/59 118/68 O2 Sat by Pulse 99 99 97 Oximetry Procedures - Incision & Drainage Consent Obtained: verbal consent Indication: abscess Site: other (R axilae) Anesthetic Used: lidocaine 1% I&D Cleaning Method: Alcohol Wipe, Betadine Scalpel Used: #11 Irrigation Performed?: Yes I&D Drainage Obtained: Pus Culture Obtained?: Yes Patient Tolerated Procedure: well, no complications <Gabriel Ann - Last Filed: 03/15/18 11:58> Medical Decision Making - Lab Data Result diagrams: 03/11/18 20:31 03/11/18 20:31 <Wlademar Ace - Last Filed: 03/12/18 02:08> - Lab Data Result diagrams: 03/11/18 20:31 03/11/18 20:31 <Gabriel Ann - Last Filed: 03/15/18 11:58> - Medical Decision Making 27-year-old patient currently 14 weeks and 4 days dated by LMP and ultrasound presents to ED with abscess in the right axilla. Patient reports that she has had this abscess for approximately 3 days and follows up with infectious disease Dr Owens, at this time patient is not on antibiotics. Patient product demonstrator is Dr. Layla Garnett. Patient reports that within the last 24 hours per abscess under her right arm has grown larger and more painful. She has noticed a small amount of purulent drainage from it. Patient states that she has had some chills but no fevers at home. Patient denies any abdominal pain or vaginal bleeding. Denies all other complaints. Pt VSS displayed 100.3F, otherwise stable. Physical exam displayed: approximately 2cm abscess noted in R axillae. Small amount of purulent drainage noted. Laboratory investigations revealed 10.9 white blood cell count, CMP noncompressive. HCG Quant 68282, hcg urine positive. UA negative. ultrasound displayed a heart rate of 160. Satisfactory growth compared last exam. Pt was discussed in depth and seen by attending physician Dr. Cruz, Dr. Owens was contacted. Per Dr. Owens reccomendations, administer one dose of IV vanco and I&D the abscess for culture. Pt to f/u with Dr. Owens and volleyball assembler Dr. Garnett tomorrow. Pt to return to ED if new s/sx develop or if condition worsens in anyway. (Gabriel Ann) - Lab Data Lab Results 03/11/18 03/11/18 03/11/18 Range/Units 20:31 20:31 20:31 WBC 10.9 H (3.8-10.6) k/uL RBC 3.80 (3.80-5.40) m/uL Hgb 11.6 (11.4-16.0) gm/dL Hct 33.4 L (34.0-46.0) % MCV 87.9 (80.0-100.0) fL MCH 30.5 (25.0-35.0) pg MCHC 34.7 (31.0-37.0) g/dL RDW 12.9 (11.5-15.5) % Plt Count 202 (150-450) k/uL Neutrophils % 58 % Lymphocytes % 32 % Monocytes % 5 % Eosinophils % 2 % Basophils % 0 % Neutrophils # 6.3 (1.3-7.7) k/uL Lymphocytes # 3.4 (1.0-4.8) k/uL Monocytes # 0.5 (0-1.0) k/uL Eosinophils # 0.3 (0-0.7) k/uL Basophils # 0.0 (0-0.2) k/uL Sodium 137 (137-145) mmol/L Potassium 3.5 (3.5-5.1) mmol/L Chloride 108 H (98-107) mmol/L Carbon Dioxide 23 (22-30) mmol/L Anion Gap 6 mmol/L BUN 6 L (7-17) mg/dL Creatinine 0.46 L (0.52-1.04) mg/dL Est GFR (CKD-EPI)AfAm >90 (>60 ml/min/1.73 sqM) Est GFR (CKD-EPI)NonAf >90 (>60 ml/min/1.73 sqM) Glucose 82 (74-99) mg/dL Plasma Lactic Acid Eliu (0.7-2.0) mmol/L Calcium 9.2 (8.4-10.2) mg/dL Total Bilirubin 0.3 (0.2-1.3) mg/dL AST 16 (14-36) U/L ALT 31 (9-52) U/L Alkaline Phosphatase 28 L (38-126) U/L Total Protein 6.1 L (6.3-8.2) g/dL Albumin 3.6 (3.5-5.0) g/dL HCG, Quant 23835.8 mIU/mL Urine Color Urine Appearance (Clear) Urine pH (5.0-8.0) Ur Specific [place] (1.001-1.035) Urine Protein (Negative) Urine Glucose (UA) (Negative) Urine Ketones (Negative) Urine Blood (Negative) Urine Nitrite (Negative) Urine Bilirubin (Negative) Urine Urobilinogen (<2.0) mg/dL Ur Leukocyte Esterase (Negative) Urine HCG, Qual Detected (Not Detectd) 03/11/18 03/11/18 Range/Units 20:31 20:31 WBC (3.8-10.6) k/uL RBC (3.80-5.40) m/uL Hgb (11.4-16.0) gm/dL Hct (34.0-46.0) % MCV (80.0-100.0) fL MCH (25.0-35.0) pg MCHC (31.0-37.0) g/dL RDW (11.5-15.5) % Plt Count (150-450) k/uL Neutrophils % % Lymphocytes % % Monocytes % % Eosinophils % % Basophils % % Neutrophils # (1.3-7.7) k/uL Lymphocytes # (1.0-4.8) k/uL Monocytes # (0-1.0) k/uL Eosinophils # (0-0.7) k/uL Basophils # (0-0.2) k/uL Sodium (137-145) mmol/L Potassium (3.5-5.1) mmol/L Chloride (98-107) mmol/L Carbon Dioxide (22-30) mmol/L Anion Gap mmol/L BUN (7-17) mg/dL Creatinine (0.52-1.04) mg/dL Est GFR (CKD-EPI)AfAm (>60 ml/min/1.73 sqM) Est GFR (CKD-EPI)NonAf (>60 ml/min/1.73 sqM) Glucose (74-99) mg/dL Plasma Lactic Acid Eliu 1.4 (0.7-2.0) mmol/L Calcium (8.4-10.2) mg/dL Total Bilirubin (0.2-1.3) mg/dL AST (14-36) U/L ALT (9-52) U/L Alkaline Phosphatase (38-126) U/L Total Protein (6.3-8.2) g/dL Albumin (3.5-5.0) g/dL HCG, Quant mIU/mL Urine Color Light Yellow Urine Appearance Clear (Clear) Urine pH 6.0 (5.0-8.0) Ur Specific [place] 1.006 (1.001-1.035) Urine Protein Negative (Negative) Urine Glucose (UA) Negative (Negative) Urine Ketones Negative (Negative) Urine Blood Negative (Negative) Urine Nitrite Negative (Negative) Urine Bilirubin Negative (Negative) Urine Urobilinogen <2.0 (<2.0) mg/dL Ur Leukocyte Esterase Negative (Negative) Urine HCG, Qual (Not Detectd) Disposition Is patient prescribed a controlled substance at d/c from ED?: No <Waldemar Ace - Last Filed: 03/12/18 02:08> <Gabriel Ann - Last Filed: 03/15/18 11:58> Clinical Impression: Abscess Disposition: HOME SELF-CARE Condition: Fair Instructions (If sedation given, give patient instructions): Abscess (ED) Referrals: Natty Finnegan MD [Primary Care Provider] - 1-2 days
[2018-03-11 20:47] LABS: Appearance,Urine Clear (Clear); Basophils % (A) 0 %; Bilirubin,Urine Negative (Negative); Blood,Urine Negative (Negative); Color,Urine Light Yellow; Eosinophils # (A) 0.3 k/uL (0-0.7); Eosinophils % (A) 2 %; Glucose,Urine (UA) Negative (Negative); HCT 33.4 % (34.0-46.0); HGB 11.6 gm/dL (11.4-16.0); Ketones,Urine Negative (Negative); Leukocyte Esterase,Urine Negative (Negative); Lymphocytes # (A) 3.4 k/uL (1.0-4.8); Lymphocytes % (A) 32 %; MCH 30.5 pg (25.0-35.0); MCHC 34.7 g/dL (31.0-37.0); MCV 87.9 fL (80.0-100.0); Mean Platelet Volume 8.7; Monocytes # (A) 0.5 k/uL (0-1.0); Monocytes % (A) 5 %; Neutrophils # (A) 6.3 k/uL (1.3-7.7); Neutrophils % (A) 58 %; Nitrite,Urine Negative (Negative); Platelet Count 202 k/uL (150-450); Protein,Urine Negative (Negative); RDW 12.9 % (11.5-15.5); Specific Gravity,Urine 1.006 (1.001-1.035); Urobilinogen,Urine <2.0 mg/dL (<2.0); WBC 10.9 k/uL (3.8-10.6)
[2018-03-11 20:59] LABS: ALT 31 U/L (9-52); AST 16 U/L (14-36); Albumin 3.6 g/dL (3.5-5.0); Alkaline Phosphatase 28 U/L (38-126); Anion Gap 6 mmol/L; Blood Urea Nitrogen 6 mg/dL (7-17); Calcium 9.2 mg/dL (8.4-10.2); Carbon Dioxide 23 mmol/L (22-30); Chloride 108 mmol/L (98-107); Glucose 82 mg/dL (74-99); Potassium 3.5 mmol/L (3.5-5.1); Sodium 137 mmol/L (137-145); Total Bilirubin 0.3 mg/dL (0.2-1.3); Total Protein 6.1 g/dL (6.3-8.2)
[2018-03-11 21:40] LABS: HCG,Quantitative Serum 39171.8 mIU/mL
[2018-03-11] MEDS ORDERED: VANCOMYCIN IV PER PHARMACY 1 EACH MISC MISCELLANE PRN (21:53)
[2018-03-11] MEDS ORDERED: VANCOMYCIN 2,000 MG in SODIUM CHLORIDE 0.9% 500 ML 500 ML IVPB ONE (22:15)
[2018-03-11] MEDS ORDERED: LIDOCAINE 1% INJ 10MG/ML (20 ML MDV) SQ STA (22:19)
--- NOTE | 2018-03-11 23:37 | US ---
EXAMINATION TYPE: Transabdominal DATE OF EXAM: 05/14/17 COMPARISON: 02/27/2018 CLINICAL HISTORY: Pain. Pain EXAM PERFORMED: Transabdominal (TA) EXAM MEASUREMENTS: GESTATIONAL AGE / DATING Physician Established: (14 weeks/2 days) EDC: 09/07/2018 Dates by LMP: (14 weeks/2 days) EDC: 09/07/2018 Dates by First Scan: (12 weeks/4 days) EDC: 09/07/2018 Dates by Current Scan for: (13 weeks/4 days) EDC: 09/12/2018 MATERNAL ANATOMY Uterus: 13.5 x 8.6 x 9.3cm Post CDS / Adnexa: wnl Presence of free fluid: wnl Presence of corpus luteal cyst: no Presence of subchorionic bleed: no GESTATION / SURVEY CRL: 7.54cm (13 weeks/4 days) Heart Rate: 168 bpm Rhythm: Normal IUP: Viable IUP Beta HcG (if available): Not available at this time IMPRESSION: There is satisfactory growth compared to last exam.
[2018-03-12 02:04] VITALS: BP 118/68; PULSE 84; TEMP 98.5
--- NOTE | 2018-03-12 06:47 | CDI ---
Dear Gabriel CM, PAC Please do addendum to ED report for I&D procedure documentaion. Thank you, Kush Fulton Justowriter Operator If you have any question, Please contact encoding machine operator at [phone] [facility]
[2018-03-12] MEDS ORDERED: VANCOMYCIN 1,500 MG in SODIUM CHLORIDE 0.9% 250 ML IVPB SCH (07:00)
== END 2018-03-12 02:38 | disposition home or self-care (01) ==
LOC: EC 19:40
DX: O99.712 Diseases of the skin and subcutaneous tissue complicating pregnancy, second trimester (principal); L02.411 Cutaneous abscess of right axilla; O99.282 Endocrine, nutritional and metabolic diseases complicating pregnancy, second trimester; E07.9 Disorder of thyroid, unspecified; O99.332 Smoking (tobacco) complicating pregnancy, second trimester; F17.200 Nicotine dependence, unspecified, uncomplicated; Z3A.14 14 weeks gestation of pregnancy; Z79.890 Hormone replacement therapy; Z88.1 Allergy status to other antibiotic agents; Z91.040 Latex allergy status; Z91.048 Other nonmedicinal substance allergy status; Z88.8 Allergy status to other drugs, medicaments and biological substances
CPT/HCPCS: 99284; 10060; 96365; 96366 ×2; 36415; 80053; 83605; 85025; 81003; 81025; 84702; 87040; 87070; 87205; 87077; 87186; 76801; J3370; J2001

== ENCOUNTER 2018-04-09 13:53 | Emergency (ER) | payer OTHER ==
[2018-04-09] MEDS ORDERED: SODIUM CHLORIDE 0.9% 1,000 ML IV STA ×2 (14:02)
--- NOTE | 2018-04-09 14:13 | ED ---
Syncope HPI - General Chief Complaint: Syncope Stated Complaint: 18 weeks preg, syncope Time Seen by Provider: 04/09/18 14:02 Source: patient, RN notes reviewed, old records reviewed Mode of arrival: wheelchair Limitations: no limitations - History of Present Illness Initial Comments: This is a 27-year-old female the ER for evaluation. Patient coming in for evaluation near syncopal versus syncopal event. Patient is positive about 18 weeks . Been going fine she is a . Patient has no abdominal pain, no chest pain. Patient states she felt lightheaded and dizzy experienced some vision went down to one knee does not believe that she completed passed out, she has multiple instances of this. Prior . And had multiple episodes of nausea vomiting earlier with dehydration. Denies dysuria no fevers MD Complaint: felt faint, almost passed out -: minutes(s) Prodromal Symptoms: palpitations -: second(s) Witnessed: no Injuries Sustained Associated with Event: None Current Symptoms: back to baseline, lightheaded History: other () Context: standing up Treatments Prior to Arrival: none - Related Data On Hormonal Control: Yes Home Medications Medication Instructions Recorded Confirmed Levothyroxine Sodium [Synthroid] 50 mcg PO DAILY 11/10/16 04/09/18 Fqa-Endz-Pktyb Acid 1 cap PO DAILY 02/21/18 04/09/18 [-U Capsule (formulary)] QUEtiapine FUMARATE [SEROquel] 400 mg PO HS 04/09/18 04/09/18 Sertraline HCl [Zoloft] 100 mg PO HS 04/09/18 04/09/18 Allergies Allergy/AdvReac Type Severity Reaction Status Date / Time adhesive tape Allergy Rash/Hives Verified 04/09/18 14:25 ceftriaxone sodium Allergy Rash/Hives Verified 04/09/18 14:25 [From Rocephin] latex Allergy Rash/Hives Verified 04/09/18 14:25 bupropion HCl AdvReac Hallucinati Verified 04/09/18 14:25 [From Wellbutrin] ons butalbital AdvReac Hallucinati Verified 04/09/18 14:25 ons Review of Systems ROS Statement: Those systems with pertinent positive or pertinent negative responses have been documented in the HPI. ROS Other: All systems not noted in ROS Statement are negative. Past Medical History Past Medical History: Asthma, Thyroid Disorder Additional Past Medical History / Comment(s): INSOMNIA; BODERLINE PERSONALITY DISORDER, back pain hx of syncope, MURMUR CHILD,BRONCHITIS,CARPAL TUNNEL, ARHTIRITS,UTI'S, MIGRAINES."herniated disc neck/back" colitis History of Any Multi-Drug Resistant Organisms: MRSA Date of last positivie culture/infection: 03/11/18 MDRO Source:: Right Axilla Past Surgical History: Adenoidectomy, Tonsillectomy Additional Past Surgical History / Comment(s): teeth pulled. SEVERAL AREAS ON BODY HAD i&D FROM AREAS WITH MRSA Past Anesthesia/Blood Transfusion Reactions: No Reported Reaction Additional Past Anesthesia/Blood Transfusion Reaction / Comment(s): CLAUSTERPHOBIA Past Psychological History: Anxiety, Bipolar, Depression, PTSD Smoking Status: Light tobacco smoker Past Alcohol Use History: None Reported Past Drug Use History: Marijuana - Past Family History Mother Family Medical History: Myocardial Infarction ([place]) Additional Family Medical History / Comment(s): AT AGE 45 FROM [place] Father Additional Family Medical History / Comment(s): WHEN PT WAS 9 MONTHS OLD FROM A BRAIN ANUERYSM General Exam Limitations: no limitations General appearance: alert, in no apparent distress Head exam: Present: atraumatic, normocephalic, normal inspection Eye exam: Present: normal appearance, PERRL, EOMI. Absent: scleral icterus, conjunctival injection, periorbital swelling ENT exam: Present: normal exam, mucous membranes moist Neck exam: Present: normal inspection. Absent: tenderness, meningismus, lymphadenopathy Respiratory exam: Present: normal lung sounds bilaterally. Absent: respiratory distress, wheezes, rales, rhonchi, stridor Cardiovascular Exam: Present: regular rate, normal rhythm, normal heart sounds. Absent: systolic murmur, diastolic murmur, rubs, gallop, clicks GI/Abdominal exam: Present: soft, normal bowel sounds. Absent: distended, tenderness, guarding, rebound, rigid Extremities exam: Present: normal inspection, full ROM, normal capillary refill. Absent: tenderness, pedal edema, joint swelling, calf tenderness Back exam: Present: normal inspection Neurological exam: Present: alert, oriented X3, CN II-XII intact Psychiatric exam: Present: normal affect, normal mood Skin exam: Present: warm, dry, intact, normal color. Absent: rash Course Vital Signs 04/09/18 04/09/18 13:56 15:23 Temperature 99.1 F Pulse Rate 102 H 93 Respiratory 16 18 Rate Blood Pressure 137/74 127/81 O2 Sat by Pulse 98 98 Oximetry - Reevaluation(s) Reevaluation #1: 04/09/18 15:00 Medical record is reviewed Reevaluation #2: 04/09/18 16:38 No syncope here in the ER EKG Findings - EKG Comments: EKG Findings:: EKG shows sinus rhythm rate of 80, UT 20, QRS 86, QTc 452 Medical Decision Making - Medical Decision Making 27 female the ER status post syncopal event. Near syncopal event. Patient improved with hydration in the ultrasound negative, patient can be discharged home - Lab Data Result diagrams: 04/09/18 14:17 04/09/18 14:17 Lab Results 04/09/18 04/09/18 04/09/18 Range/Units 14:17 14:17 14:17 WBC 9.8 (3.8-10.6) k/uL RBC 3.83 (3.80-5.40) m/uL Hgb 11.6 (11.4-16.0) gm/dL Hct 34.1 (34.0-46.0) % MCV 88.8 (80.0-100.0) fL MCH 30.4 (25.0-35.0) pg MCHC 34.2 (31.0-37.0) g/dL RDW 13.0 (11.5-15.5) % Plt Count 199 (150-450) k/uL Neutrophils % 61 % Lymphocytes % 31 % Monocytes % 4 % Eosinophils % 2 % Basophils % 1 % Neutrophils # 6.0 (1.3-7.7) k/uL Lymphocytes # 3.0 (1.0-4.8) k/uL Monocytes # 0.4 (0-1.0) k/uL Eosinophils # 0.2 (0-0.7) k/uL Basophils # 0.0 (0-0.2) k/uL PT 9.5 (9.0-12.0) sec INR 0.9 (<1.2) APTT 22.7 (22.0-30.0) sec Sodium 137 (137-145) mmol/L Potassium 3.8 (3.5-5.1) mmol/L Chloride 106 (98-107) mmol/L Carbon Dioxide 22 (22-30) mmol/L Anion Gap 9 mmol/L BUN 8 (7-17) mg/dL Creatinine 0.53 (0.52-1.04) mg/dL Est GFR (CKD-EPI)AfAm >90 (>60 ml/min/1.73 sqM) Est GFR (CKD-EPI)NonAf >90 (>60 ml/min/1.73 sqM) Glucose 93 (74-99) mg/dL Calcium 9.3 (8.4-10.2) mg/dL Magnesium 1.5 L (1.6-2.3) mg/dL Total Bilirubin 0.2 (0.2-1.3) mg/dL AST 25 (14-36) U/L ALT 33 (9-52) U/L Alkaline Phosphatase 49 (38-126) U/L Troponin I (0.000-0.034) ng/mL Total Protein 6.4 (6.3-8.2) g/dL Albumin 3.7 (3.5-5.0) g/dL Urine Color Urine Appearance (Clear) Urine pH (5.0-8.0) Ur Specific [place] (1.001-1.035) Urine Protein (Negative) Urine Glucose (UA) (Negative) Urine Ketones (Negative) Urine Blood (Negative) Urine Nitrite (Negative) Urine Bilirubin (Negative) Urine Urobilinogen (<2.0) mg/dL Ur Leukocyte Esterase (Negative) Urine RBC (0-5) /hpf Urine WBC (0-5) /hpf Ur Squamous Epith Cells (0-4) /hpf Urine Bacteria (None) /hpf Urine Mucus (None) /hpf 04/09/18 04/09/18 Range/Units 14:17 14:17 WBC (3.8-10.6) k/uL RBC (3.80-5.40) m/uL Hgb (11.4-16.0) gm/dL Hct (34.0-46.0) % MCV (80.0-100.0) fL MCH (25.0-35.0) pg MCHC (31.0-37.0) g/dL RDW (11.5-15.5) % Plt Count (150-450) k/uL Neutrophils % % Lymphocytes % % Monocytes % % Eosinophils % % Basophils % % Neutrophils # (1.3-7.7) k/uL Lymphocytes # (1.0-4.8) k/uL Monocytes # (0-1.0) k/uL Eosinophils # (0-0.7) k/uL Basophils # (0-0.2) k/uL PT (9.0-12.0) sec INR (<1.2) APTT (22.0-30.0) sec Sodium (137-145) mmol/L Potassium (3.5-5.1) mmol/L Chloride (98-107) mmol/L Carbon Dioxide (22-30) mmol/L Anion Gap mmol/L BUN (7-17) mg/dL Creatinine (0.52-1.04) mg/dL Est GFR (CKD-EPI)AfAm (>60 ml/min/1.73 sqM) Est GFR (CKD-EPI)NonAf (>60 ml/min/1.73 sqM) Glucose (74-99) mg/dL Calcium (8.4-10.2) mg/dL Magnesium (1.6-2.3) mg/dL Total Bilirubin (0.2-1.3) mg/dL AST (14-36) U/L ALT (9-52) U/L Alkaline Phosphatase (38-126) U/L Troponin I <0.012 (0.000-0.034) ng/mL Total Protein (6.3-8.2) g/dL Albumin (3.5-5.0) g/dL Urine Color Yellow Urine Appearance Cloudy H (Clear) Urine pH 6.0 (5.0-8.0) Ur Specific [place] 1.014 (1.001-1.035) Urine Protein Negative (Negative) Urine Glucose (UA) Negative (Negative) Urine Ketones Negative (Negative) Urine Blood Negative (Negative) Urine Nitrite Negative (Negative) Urine Bilirubin Negative (Negative) Urine Urobilinogen <2.0 (<2.0) mg/dL Ur Leukocyte Esterase Trace H (Negative) Urine RBC 1 (0-5) /hpf Urine WBC 3 (0-5) /hpf Ur Squamous Epith Cells 3 (0-4) /hpf Urine Bacteria Few H (None) /hpf Urine Mucus Rare H (None) /hpf - Radiology Data Radiology results: report reviewed (Ultrasound OB positive for IUP), image reviewed Disposition Clinical Impression: Vasovagal syncope Disposition: HOME SELF-CARE Condition: Good Instructions (If sedation given, give patient instructions): Syncope (ED) Is patient prescribed a controlled substance at d/c from ED?: No Referrals: Natty Finnegan MD [Primary Care Provider] - 1-2 days
[2018-04-09 14:44] LABS: Basophils % (A) 1 %; Eosinophils # (A) 0.2 k/uL (0-0.7); Eosinophils % (A) 2 %; HCT 34.1 % (34.0-46.0); HGB 11.6 gm/dL (11.4-16.0); Lymphocytes % (A) 31 %; MCH 30.4 pg (25.0-35.0); MCHC 34.2 g/dL (31.0-37.0); MCV 88.8 fL (80.0-100.0); Mean Platelet Volume 8.7; Monocytes # (A) 0.4 k/uL (0-1.0); Monocytes % (A) 4 %; Neutrophils % (A) 61 %; Platelet Count 199 k/uL (150-450); RBC 3.83 m/uL (3.80-5.40); WBC 9.8 k/uL (3.8-10.6)
[2018-04-09 14:52] LABS: INR 0.9 (<1.2); Partial Thromboplastin Time 22.7 sec (22.0-30.0); Prothrombin Time 9.5 sec (9.0-12.0)
[2018-04-09 14:53] LABS: ALT 33 U/L (9-52); AST 25 U/L (14-36); Albumin 3.7 g/dL (3.5-5.0); Alkaline Phosphatase 49 U/L (38-126); Anion Gap 9 mmol/L; Blood Urea Nitrogen 8 mg/dL (7-17); Calcium 9.3 mg/dL (8.4-10.2); Carbon Dioxide 22 mmol/L (22-30); Chloride 106 mmol/L (98-107); Glucose 93 mg/dL (74-99); Magnesium 1.5 mg/dL (1.6-2.3); Potassium 3.8 mmol/L (3.5-5.1); Sodium 137 mmol/L (137-145); Total Bilirubin 0.2 mg/dL (0.2-1.3); Total Protein 6.4 g/dL (6.3-8.2)
[2018-04-09 14:56] LABS: Appearance,Urine Cloudy (Clear); Bacteria,Urine Few /hpf; Bilirubin,Urine Negative (Negative); Blood,Urine Negative (Negative); Color,Urine Yellow; Glucose,Urine (UA) Negative (Negative); Ketones,Urine Negative (Negative); Leukocyte Esterase,Urine Trace (Negative); Mucus,Urine Rare /hpf; Nitrite,Urine Negative (Negative); Protein,Urine Negative (Negative); RBC,Urine 1 /hpf (0-5); Specific Gravity,Urine 1.014 (1.001-1.035); Squamous Epithelial Cell,Urine 3 /hpf (0-4); Urobilinogen,Urine <2.0 mg/dL (<2.0)
[2018-04-09 15:24] VITALS: RESP 18
[2018-04-09 17:17] VITALS: BP 133/74; PULSE 84; TEMP 99.3
--- NOTE | 2018-04-09 17:31 | US ---
EXAMINATION TYPE: US OB >= 14 wk fetus DATE OF EXAM: 04/09/2018 COMPARISON: US CLINICAL HISTORY: Pain Pt states recent episodes of syncope TECHNIQUE: Transabdominal (TA) GESTATIONAL AGE / DATING Physician Established: (18 weeks/3 days) EDC: 09/07/2018 Dates by LMP: (18 weeks/3 days) EDC: 09/07/2018 Dates by First Scan: (18 weeks/3 days) EDC: 09/07/2018 Dates by Current Scan: (18 weeks/1 days) EDC: 09/09/2018 SURVEY IUP: Single PLACENTA: Posterior PREVIA: No Previa TYRELL: 13.2 cm Normal CERVICAL LENGTH (transabdominal: norm > 3.0cm): 4.1 cm BIOMETRY PRESENTATION: Vertex BPD: 4.0 cm 18 weeks / 2 days HC: 15.2 cm 18 weeks / 2 days AC: 12.8 cm 18 weeks / 2 days FL: 2.7 cm 18 weeks / 2 days ESTIMATED WEIGHT IN GRAMS: 232.7 grams ESTIMATED WEIGHT IN LBS/OZ: 0 lbs. 8 oz. WEIGHT PERCENTAGE BASED ON ESTABLISHED DATES: 36.6% HC/AC: 1.19 Normal FL/AC: 21 Normal HEART RATE: 144 bpm RHYTHM: Normal Single, viable IUP/ No abnormality visualized at time IMPRESSION: No complicating process seen.
== END 2018-04-09 17:16 | disposition home or self-care (01) ==
LOC: EC 13:53
DX: O26.892 Other specified pregnancy related conditions, second trimester (principal); R55 Syncope and collapse; R42 Dizziness and giddiness; R00.2 Palpitations; O99.342 Other mental disorders complicating pregnancy, second trimester; F41.9 Anxiety disorder, unspecified; F31.9 Bipolar disorder, unspecified; F43.10 Post-traumatic stress disorder, unspecified; O99.282 Endocrine, nutritional and metabolic diseases complicating pregnancy, second trimester; E07.9 Disorder of thyroid, unspecified; O99.332 Smoking (tobacco) complicating pregnancy, second trimester; F17.200 Nicotine dependence, unspecified, uncomplicated; Z3A.18 18 weeks gestation of pregnancy; Z79.890 Hormone replacement therapy; Z79.899 Other long term (current) drug therapy; Z91.048 Other nonmedicinal substance allergy status; Z88.1 Allergy status to other antibiotic agents; Z91.040 Latex allergy status; Z88.8 Allergy status to other drugs, medicaments and biological substances
CPT/HCPCS: 36415; 76805; 80053; 81001; 83735; 84484; 85025; 85610; 85730; 93005; 96360; 96361; 99285

== ENCOUNTER 2018-06-21 17:00 | Outpatient (CLI) | payer OTHER ==
[2018-06-21 17:44] VITALS: PULSE 96; RESP 17; TEMP 97.3
[2018-06-21] MEDS ORDERED: ACETAMINOPHEN TAB 325 MG TAB PO STA (17:44)
[2018-06-21 18:05] LABS: Appearance,Urine Clear (Clear); Bacteria,Urine Many /hpf; Bilirubin,Urine Negative (Negative); Blood,Urine Negative (Negative); Color,Urine Light Yellow; Glucose,Urine (UA) Negative (Negative); Ketones,Urine Negative (Negative); Leukocyte Esterase,Urine Trace (Negative); Nitrite,Urine Negative (Negative); Protein,Urine Negative (Negative); Specific Gravity,Urine 1.005 (1.001-1.035); Squamous Epithelial Cell,Urine 1 /hpf (0-4); Urobilinogen,Urine <2.0 mg/dL (<2.0); WBC,Urine 4 /hpf (0-5)
[2018-06-21 18:37] VITALS: BP 132/63
--- NOTE | 2018-08-07 08:04 | P.MSEPDOC ---
Presenting Problems - Arrival Data Date of Arrival on Unit: 06/21/18 Time of Arrival on Unit: 17:00 Mode of Transport: Wheelchair - Complaint OB-Reason for Admission/Chief Complaint: Headache, Visual Disturbances Comment: pt here with c/o fajardo and tunnel vision that occured around 1630 today, pt reports possible issue with increased blood pressures during , pt denies having blood work ups done, reports + fm, denies contractions/lof/vb, reflexes +2, denies r upper quad pain, pt reports not eating since early this morning Medical History - Information : 2 Para: 0 Term: 0 : 0 Abortions: Spontaneous or Elective: 1 Number of Living Children: 0 - Gestational Age Gestational Age by VIKI (wks/days): 29 Weeks and 0 Days Review of Systems - Review of Systems Constitutional: No problems Breast: No problems ENT: No problems Cardiovascular: No problems Respiratory: No problems Gastrointestinal: No problems Genitourinary: No problems Musculoskeletal: No problems Neurological: No problems Skin: No problems Vital Signs - Temperature Temperature: 97.3 F Temperature Source: Temporal Artery Scan - Pulse Right Brachial Pulse Rate: 96 Pulse Assessment Method: Automatic Cuff - Respirations Respiratory Rate: 17 Oxygen Delivery Method: Room Air O2 Sat by Pulse Oximetry: 97 - Blood Pressure Right Arm Blood Pressure: 132/63 Blood Pressure Mean: 86 Blood Pressure Source: Automatic Cuff Medical Screen Scoring (Pre) - Cervical Exam Dilation: Exam Deferred Effacement: Exam Deferred Membranes: Intact - Uterine Contractions Frequency: N/A Duration: N/A Intensity: N/A - Maternal Vital Signs Maternal Temperature: N/A Maternal Blood Pressure: N/A Signs of Preeclampsia: N/A Maternal Respirations: N/A - Total Score - Baby A Total Score - Baby A: 0 - Level of Risk - Baby A Level of Risk - Baby A: Low (0-5) - Pain Assessment Pain Location and Character: Head Pain Scale Used: Numeric (1 - 10) Pain Intensity: 5 Pain Management Goal: 4 Pain Description: *Acute, Aching Pain Radiation Location: none Pain Frequency: Frequent Pain Duration: 30 Pain Duration Units: Minutes Pain Behavior: Decreased Activity, Vocalization Pain Aggravating Factors: None Physician Notification (Pre) - Physician Notified Physician Notified Date: 06/21/18 Physician Notified Time: 17:20 Physician/Practitioner Notifed:: Dr Bailon Spoke With: Dr Bailon New Order Received: Yes (u/a, oral hydrate, give pt snack) Medical Screen Scoring (Post) - Cervical Exam Dilation: Exam Deferred Effacement: Exam Deferred Membranes: Intact - Uterine Contractions Frequency: N/A Duration: N/A Intensity: N/A - Maternal Vital Signs Maternal Temperature: N/A Maternal Blood Pressure: N/A Signs of Preeclampsia: N/A Maternal Respirations: N/A - Total Score Total Score - Baby A: 0 - Post Treatment Level of Risk Post Treatment Level of Risk - Baby A: Low (0-5) Physician Notification (Post) - Physician Notified Physician Notified Date: 06/21/18 Physician Notified Time: 18:28 Physician/Practitioner Notified:: Dr Bailon Spoke With: Dr Bailon New Order Received: Yes (dc home) - Notification Comment Comment: pt ok to dc home at this time and is to follow up at office with dr henry on friday 06/23 for possible blood pressure check, pt verbalizes understanding of instructions Disposition - Disposition OB Disposition: Discharge to home, Written follow up instructions reviewed Discharge Date: 06/21/18 Discharge Time: 18:37 I agree with the RN Medical Screening Exam: No Physician's MSE Comment: Inadequate documentation Risk & Benefit of care provided described in d/c instruction: No Diagnosis: HEADACHE
== END 2018-06-21 18:37 | disposition home or self-care (01) ==
LOC: FBPOP 17:00
PROVIDERS: ATTEND Obstetrics & Gynecology
DX: O99.89 Other specified diseases and conditions complicating pregnancy, childbirth and the puerperium (principal); R51 Headache; Z3A.29 29 weeks gestation of pregnancy
CPT/HCPCS: 59025; 81001; G0463; 99215

== ENCOUNTER 2018-07-29 10:04 | Emergency (ER) | payer OTHER ==
[2018-07-29 10:15] VITALS: RESP 18
--- NOTE | 2018-07-29 11:02 | ED ---
Skin/Abscess/FB HPI - General Chief complaint: Skin/Abscess/Foreign Body Stated complaint: abscess lower abdomen Time Seen by Provider: 07/29/18 10:42 Source: patient Mode of arrival: ambulatory - History of Present Illness Initial comments: Patient is a 27-year-old female since the emergency Department with complaints of an abscess on her lower left abdomen x 2 days. Patient is 33 weeks . Patient denies fever, chills, increasing redness. Patient does admit to a history of MRSA. Patient denies any drainage from the area. Patient came in to the ER yesterday for similar complaint but had to leave to go mushroom picker her boyfriend. No other concerns at this time. Patient denies any complications with . - Related Data Home Medications Medication Instructions Recorded Confirmed Levothyroxine Sodium [Synthroid] 50 mcg PO HS 11/10/16 07/29/18 Vid-Audu-Bnlbs Acid 1 cap PO HS 02/21/18 07/29/18 [-U Capsule (formulary)] QUEtiapine FUMARATE [SEROquel] 400 mg PO HS 04/09/18 07/29/18 Sertraline HCl [Zoloft] 100 mg PO HS 04/09/18 07/29/18 Previous Rx's Medication Instructions Recorded Cephalexin [Keflex] 500 mg PO Q6HR 5 Days #20 cap 07/29/18 Allergies Allergy/AdvReac Type Severity Reaction Status Date / Time adhesive tape Allergy Rash/Hives Verified 07/29/18 10:50 ceftriaxone sodium Allergy Rash/Hives Verified 07/29/18 10:50 [From Rocephin] latex Allergy Rash/Hives Verified 07/29/18 10:50 bupropion HCl AdvReac Hallucinati Verified 07/29/18 10:50 [From Wellbutrin] ons butalbital AdvReac Hallucinati Verified 07/29/18 10:50 ons Review of Systems ROS Statement: Those systems with pertinent positive or pertinent negative responses have been documented in the HPI. ROS Other: All systems not noted in ROS Statement are negative. Past Medical History Past Medical History: Asthma, Thyroid Disorder Additional Past Medical History / Comment(s): INSOMNIA; BODERLINE PERSONALITY DISORDER, back pain hx of syncope, MURMUR CHILD,BRONCHITIS,CARPAL TUNNEL,ARHTIRITS,UTI'S, MIGRAINES."herniated disc neck/back" colitis History of Any Multi-Drug Resistant Organisms: MRSA Date of last positivie culture/infection: 03/11/18 MDRO Source:: Right Axilla Past Surgical History: Adenoidectomy, Tonsillectomy Additional Past Surgical History / Comment(s): teeth pulled. SEVERAL AREAS ON BODY HAD i&D FROM AREAS WITH MRSA Past Anesthesia/Blood Transfusion Reactions: No Reported Reaction Additional Past Anesthesia/Blood Transfusion Reaction / Comment(s): CLAUSTERPHOBIA Past Psychological History: Anxiety, Bipolar, Depression, PTSD Smoking Status: Current every day smoker Past Alcohol Use History: None Reported Past Drug Use History: Marijuana - Past Family History Mother Family Medical History: Myocardial Infarction ([place]) Additional Family Medical History / Comment(s): AT AGE 45 FROM [place] Father Additional Family Medical History / Comment(s): WHEN PT WAS 9 MONTHS OLD FROM A BRAIN ANUERYSM General Exam - General Exam Comments Initial Comments: GENERAL: Well-appearing, well-nourished and in no acute distress. HEAD: Atraumatic, normocephalic. EYES: Pupils equal round and reactive to light, extraocular movements intact, sclera anicteric, conjunctiva are normal. ENT: TMs normal, nares patent, oropharynx clear without exudates. Moist mucous membranes. NECK: Normal range of motion, supple without lymphadenopathy or JVD. LUNGS: Breath sounds clear to auscultation bilaterally and equal. No wheezes rales or rhonchi. HEART: Regular rate and rhythm without murmurs, rubs or gallops. ABDOMEN: Soft, nontender, normoactive bowel sounds. No guarding, no rebound. No masses appreciated. 33 weeks . : Deferred EXTREMITIES: Normal range of motion, no pitting or edema. No clubbing or cyanosis. NEUROLOGICAL: Cranial nerves II through XII grossly intact. Normal speech, n ormal gait. PSYCH: Normal mood, normal affect. SKIN: Small area of induration on the lower left abdomen. Mild erythema. Painful to the touch. No surrounding/spreading erythema. No drainage from the area. Course Vital Signs 07/29/18 10:12 Temperature 98.4 F Pulse Rate 109 H Respiratory 18 Rate Blood Pressure 116/77 O2 Sat by Pulse 99 Oximetry Medical Decision Making - Medical Decision Making Patient is a 27-year-old female presenting to the ER with complaints of abscess on the lower left abdomen area. Patient is currently 33 weeks with no complications. On exam the area is tender to the touch, mild erythema, no drainage from the area. There is small area of induration. Patient will be started on course of Keflex to prevent infection. Patient was counseled on using warm compresses. Patient will be discharged home with follow-up with OB as needed. Disposition Clinical Impression: Abscess of skin or subcutaneous tissue Disposition: HOME SELF-CARE Condition: Stable Instructions (If sedation given, give patient instructions): Abscess (ED) Additional Instructions: Please return to the Emergency Department if symptoms worsen or any other concerns. Use warm compresses throughout the day. Watch for signs of infection. Prescriptions: Cephalexin [Keflex] 500 mg PO Q6HR 5 Days #20 cap Is patient prescribed a controlled substance at d/c from ED?: No Referrals: Natty Finnegan MD [Primary Care Provider] - 1-2 days
[2018-07-29 11:26] VITALS: BP 147/87; PULSE 87; TEMP 97.8
== END 2018-07-29 11:23 | disposition home or self-care (01) ==
LOC: EC 10:04
DX: O99.713 Diseases of the skin and subcutaneous tissue complicating pregnancy, third trimester (principal); L02.211 Cutaneous abscess of abdominal wall; O99.283 Endocrine, nutritional and metabolic diseases complicating pregnancy, third trimester; E07.9 Disorder of thyroid, unspecified; O99.343 Other mental disorders complicating pregnancy, third trimester; F41.9 Anxiety disorder, unspecified; F32.9 Major depressive disorder, single episode, unspecified; F43.10 Post-traumatic stress disorder, unspecified; O99.333 Smoking (tobacco) complicating pregnancy, third trimester; F17.200 Nicotine dependence, unspecified, uncomplicated; Z86.14 Personal history of Methicillin resistant Staphylococcus aureus infection; Z79.890 Hormone replacement therapy; Z79.899 Other long term (current) drug therapy; Z91.048 Other nonmedicinal substance allergy status; Z88.1 Allergy status to other antibiotic agents; Z91.040 Latex allergy status; Z88.8 Allergy status to other drugs, medicaments and biological substances; Z3A.33 33 weeks gestation of pregnancy
CPT/HCPCS: 99282

== ENCOUNTER 2018-07-31 20:57 | Emergency (ER) | payer OTHER ==
[2018-07-31 21:38] VITALS: PULSE 100
[2018-07-31] MEDS ORDERED: LIDOCAINE 1% INJ 10MG/ML (20 ML MDV) SQ ONE (21:56)
[2018-07-31] MEDS ORDERED: ACETAMINOPHEN TAB 500 MG TAB PO STA (21:56)
[2018-07-31] MEDS ORDERED: CEPHALEXIN 500MG STARTER PACK 4 CAP BTL PO STA (22:43)
--- NOTE | 2018-07-31 22:49 | ED ---
General Adult HPI - General Chief complaint: Skin/Abscess/Foreign Body Stated complaint: lower abd abcess, draining/ spreading Time Seen by Provider: 07/31/18 21:51 Source: patient Mode of arrival: wheelchair Limitations: no limitations - History of Present Illness Initial comments: 27-year-old female patient who is 33 weeks presents to the emergency department today for evaluation of a left lower abdominal abscess. Patient states she was seen here a few days ago had this evaluated and was started on Keflex. Patient states she is unable to get her prescription filled due to a recent knee change due to marriage. Patient denies any fevers or chills with this. States that she was able to get a small amount of drainage out. He states the area seems to be more swollen and painful. States that she does have a history of MRSA. She denies any abdominal pain, cramping, vaginal bleeding, or vaginal discharge. States she feels normal movement. Patient denies any recent rash, shortness breath, chest pain, nausea, vomiting, diarrhea, constipation, back pain, numbness, tingling, dizziness, weakness, hematuria, dysuria, urinary urgency, urinary frequency, headache, visual changes, or any other complaints. - Related Data Home Medications Medication Instructions Recorded Confirmed Levothyroxine Sodium [Synthroid] 50 mcg PO HS 11/10/16 07/31/18 [id number]-Ucnm-Otdpm Acid 1 cap PO HS 02/21/18 07/31/18 [-U Capsule (formulary)] QUEtiapine FUMARATE [SEROquel] 400 mg PO HS 04/09/18 07/31/18 Sertraline HCl [Zoloft] 100 mg PO HS 04/09/18 07/31/18 Previous Rx's Medication Instructions Recorded Cephalexin [Keflex] 500 mg PO Q6HR 5 Days #20 cap 07/29/18 Allergies Allergy/AdvReac Type Severity Reaction Status Date / Time adhesive tape Allergy Rash/Hives Verified 07/31/18 22:17 ceftriaxone sodium Allergy Rash/Hives Verified 07/31/18 22:17 [From Rocephin] latex Allergy Rash/Hives Verified 07/31/18 22:17 bupropion HCl AdvReac Hallucinati Verified 07/31/18 22:17 [From Wellbutrin] ons butalbital AdvReac Hallucinati Verified 07/31/18 22:17 ons Review of Systems ROS Statement: Those systems with pertinent positive or pertinent negative responses have been documented in the HPI. ROS Other: All systems not noted in ROS Statement are negative. Past Medical History Past Medical History: Asthma, Thyroid Disorder Additional Past Medical History / Comment(s): INSOMNIA; BODERLINE PERSONALITY DISORDER, back pain hx of syncope, MURMUR CHILD,BRONCHITIS,CARPAL TUNNEL,ARHTIRITS,UTI'S, MIGRAINES."herniated disc neck/back" colitis History of Any Multi-Drug Resistant Organisms: MRSA Date of last positivie culture/infection: 03/11/18 MDRO Source:: Right Axilla Past Surgical History: Adenoidectomy, Tonsillectomy Additional Past Surgical History / Comment(s): teeth pulled. SEVERAL AREAS ON BODY HAD i&D FROM AREAS WITH MRSA Past Anesthesia/Blood Transfusion Reactions: No Reported Reaction Additional Past Anesthesia/Blood Transfusion Reaction / Comment(s): CLAUSTERPHOBIA Past Psychological History: Anxiety, Bipolar, Depression, PTSD Smoking Status: Current every day smoker Past Alcohol Use History: None Reported Past Drug Use History: Marijuana - Past Family History Mother Family Medical History: Myocardial Infarction ([place]) Additional Family Medical History / Comment(s): AT AGE 45 FROM [place] Father Additional Family Medical History / Comment(s): WHEN PT WAS 9 MONTHS OLD FROM A BRAIN ANUERYSM General Exam Limitations: no limitations General appearance: alert, in no apparent distress, other (Physical well- developed, well-nourished adult female patient in no acute distress. Vital signs upon presentation are temperature 98.7F, pulse 100, respirations 19, blood pressure 167/94, pulse ox 98% on room air.) Eye exam: Present: normal appearance, PERRL, EOMI. Absent: scleral icterus, conjunctival injection, periorbital swelling ENT exam: Present: normal exam, normal oropharynx, mucous membranes moist Respiratory exam: Present: normal lung sounds bilaterally. Absent: respiratory distress, wheezes, rales, rhonchi, stridor Cardiovascular Exam: Present: regular rate, normal rhythm, normal heart sounds. Absent: systolic murmur, diastolic murmur, rubs, gallop, clicks GI/Abdominal exam: Present: soft, normal bowel sounds, other (Gravid abdomen. There is a 1 cm x 2 cm fluctuant abscess noted to the left lower abdomen. No surrounding erythema. Area is tender to touch.). Absent: distended, tenderness, guarding, rebound, rigid Neurological exam: Present: alert, oriented X3, CN II-XII intact Psychiatric exam: Present: normal affect, normal mood Skin exam: Present: warm, dry, intact, normal color. Absent: rash Course Vital Signs 07/31/18 07/31/18 21:34 22:57 Temperature 98.7 F 98.9 F Pulse Rate 100 100 Respiratory 19 18 Rate Blood Pressure 167/94 157/88 O2 Sat by Pulse 98 99 Oximetry Procedures - Incision & Drainage Consent Obtained: verbal consent Indication: Abscess Site: abdomen Size (cm): 2 Anesthetic Used: lidocaine 1% Amount (mLs): 2 I&D Cleaning Method: Betadine Scalpel Used: #11 I&D Drainage Obtained: Pus, Blood Culture Obtained?: Yes Patient Tolerated Procedure: well, no complications Medical Decision Making - Medical Decision Making 27-year-old female patient presented to the emergency department today for evaluation of abscess to the left lower abdomen. Physical examination did reveal a 1 cm x 2 cm abscess with fluctuance to the left lower abdomen. No surrounding cellulitis was noted. Area was incised and drained. Culture was obtained. Patient is given prescription for Keflex that she is 33 weeks . She is instructed to follow-up with her primary care physician. She is instructed to apply warm compresses to the site 2-3 times daily. Return parameters were discussed in detail. She verbalizes understanding and agrees with this plan. Disposition Clinical Impression: Cutaneous abscess of abdominal wall Disposition: HOME SELF-CARE Condition: Good Instructions (If sedation given, give patient instructions): Abscess (ED) Additional Instructions: Apply warm compresses to the abscess site 2-3 times daily. Complete antibiotic prescription in full. Follow-up with your primary care physician for recheck as soon as possible. Return to the emergency department immediately for any new, worsening, or concerning symptoms. Is patient prescribed a controlled substance at d/c from ED?: No Referrals: Natty Finnegan MD [Primary Care Provider] - 1-2 days Time of Disposition: 22:49
[2018-07-31 22:59] VITALS: BP 157/88; RESP 18; TEMP 98.9
== END 2018-07-31 22:59 | disposition home or self-care (01) ==
LOC: EC 20:57
DX: O99.713 Diseases of the skin and subcutaneous tissue complicating pregnancy, third trimester (principal); L02.211 Cutaneous abscess of abdominal wall; O99.283 Endocrine, nutritional and metabolic diseases complicating pregnancy, third trimester; E07.9 Disorder of thyroid, unspecified; O99.343 Other mental disorders complicating pregnancy, third trimester; F41.9 Anxiety disorder, unspecified; F31.9 Bipolar disorder, unspecified; O99.333 Smoking (tobacco) complicating pregnancy, third trimester; F17.200 Nicotine dependence, unspecified, uncomplicated; Z3A.33 33 weeks gestation of pregnancy; Z79.890 Hormone replacement therapy; Z79.899 Other long term (current) drug therapy; Z91.048 Other nonmedicinal substance allergy status; Z91.040 Latex allergy status; Z88.1 Allergy status to other antibiotic agents; Z88.8 Allergy status to other drugs, medicaments and biological substances
CPT/HCPCS: 87070; 87205; 99283; 10060; J2001; 87077; 87186

== ENCOUNTER 2018-08-27 17:23 | Outpatient (CLI) | payer OTHER ==
[2018-08-27 18:21] VITALS: BP 116/62; PULSE 104; RESP 20; TEMP 99.5
[2018-08-27] MEDS ORDERED: LACTATED RINGERS 1,000 ML IV SCH (18:30)
[2018-08-27 18:56] LABS: Appearance,Urine Cloudy (Clear); Bacteria,Urine Moderate /hpf; Bilirubin,Urine Negative (Negative); Blood,Urine Negative (Negative); Color,Urine Yellow; Glucose,Urine (UA) Negative (Negative); Ketones,Urine Negative (Negative); Leukocyte Esterase,Urine Small (Negative); Mucus,Urine Occasional /hpf; Nitrite,Urine Positive (Negative); PH, Urine 6.5 (5.0-8.0); Protein,Urine Trace (Negative); RBC,Urine 1 /hpf (0-5); Specific Gravity,Urine 1.018 (1.001-1.035); Squamous Epithelial Cell,Urine <1 /hpf (0-4); Urobilinogen,Urine <2.0 mg/dL (<2.0); WBC,Urine 10 /hpf (0-5)
[2018-08-27] MEDS ORDERED: NITROFURANTOIN MONOHYD/M-CRYST 100 MG CAP PO STA (19:08)
--- NOTE | 2018-09-15 08:30 | P.MSEPDOC ---
Presenting Problems - Arrival Data Date of Arrival on Unit: 08/27/18 Time of Arrival on Unit: 17:23 Mode of Transport: Ambulatory - Complaint OB-Reason for Admission/Chief Complaint: Other Comment: pt here complaining of throwing up all day today, is weak, tired and has no energy Medical History - Information : 1 Para: 0 Term: 0 : 0 Abortions: Spontaneous or Elective: 0 Number of Living Children: 0 - Gestational Age Gestational Age by VIKI (wks/days): 38 Weeks and 4 Days - History Complications: GBS+, Smoker Comment: hx of MRSA groin in july 2018, hx of bipolar disorder, hx marijuana use, hx cutter Review of Systems - Review of Systems Constitutional: Fatigue Breast: No problems ENT: No problems Cardiovascular: No problems Respiratory: No problems Gastrointestinal: No problems Genitourinary: No problems Musculoskeletal: Muscle weakness Neurological: Dizziness Skin: Rash Comment: acid issues the last couple days, muscle weakness brought her in, fell like gravity has changed and everything is heavier, hx of MRSA in her groin in July Vital Signs - Temperature Temperature: 99.5 F Temperature Source: Oral - Pulse Pulse Oximetery Pulse Rate: 104 Pulse Assessment Method: Automatic Cuff - Respirations Respiratory Rate: 20 Oxygen Delivery Method: Room Air O2 Sat by Pulse Oximetry: 97 - Blood Pressure Right Arm Blood Pressure: 116/62 Blood Pressure Mean: 80 Blood Pressure Source: Automatic Cuff Medical Screen Scoring (Pre) - Cervical Exam Dilation: Exam Deferred Effacement: Exam Deferred Membranes: Intact - Uterine Contractions Frequency: N/A - Maternal Vital Signs Maternal Temperature: N/A Maternal Blood Pressure: N/A Signs of Preeclampsia: N/A Maternal Respirations: N/A - Maternal Trauma Maternal Trauma: N/A - Assessment - Baby A Baseline FHR: 140 Heart Rate - NICHD Category: Category I (Normal) = 0 NST: Reactive Position: N/A Station: N/A - Total Score - Baby A Total Score - Baby A: 0 - Total Score - Baby B Total Score - Baby B: 0 - Total Score - Baby C Total Score - Baby C: 0 - Level of Risk - Baby A Level of Risk - Baby A: Low (0-5) - Level of Risk - Baby B Level of Risk - Baby B: Low (0-5) - Level of Risk - Baby C Level of Risk - Baby C: Low (0-5) - Pain Assessment Pain Location and Character: Abdomen Pain Scale Used: Numeric (1 - 10) Pain Intensity: 6 Pain Description: *Acute Pain Radiation Location: none Pain Frequency: Intermittent Pain Duration: 5 Pain Duration Units: Minutes Pain Behavior: Facial Grimacing, Vocalization Pain Aggravating Factors: None Physician Notification (Pre) - Physician Notified Physician Notified Date: 08/27/18 Physician Notified Time: 18:22 Physician/Practitioner Notifed:: Dr Brooke - Notification Comment Comment: orders to give a liter of fluid and get a urinalysis Medical Screen Scoring (Post) - Cervical Exam Dilation: Exam Deferred Effacement: Exam Deferred - Uterine Contractions Frequency: N/A, > 5 minutes apart = 1 Duration: > 40 seconds = 2 Intensity: N/A - Maternal Vital Signs Maternal Temperature: N/A Maternal Blood Pressure: N/A Signs of Preeclampsia: N/A Maternal Respirations: N/A - Maternal Trauma Maternal Trauma: N/A - Assessment - Baby A Heart Rate: 130 Heart Rate - NICHD Category: Category I (Normal) = 0 NST: Reactive Position: N/A - Total Score Total Score - Baby A: 3 Total Score - Baby B: 3 Total Score - Baby C: 3 - Post Treatment Level of Risk Post Treatment Level of Risk - Baby A: Low (0-5) Physician Notification (Post) - Physician Notified Physician Notified Date: 08/27/18 Physician Notified Time: 19:15 Physician/Practitioner Notified:: Dr Brooke - Notification Comment Comment: Reported on VS, fhts, cntrx pattern, UA results. Orders for macrobid po x1 now, and written rx for home. keep scheduled appt in office next week. d/c home with instructions Disposition - Disposition OB Disposition: Discharge to home Discharge Date: 08/27/18 Discharge Time: 19:45 I agree with the RN Medical Screening Exam: Yes Risk & Benefit of care provided described in d/c instruction: Yes Diagnosis: VOMITING OF , UNSPECIFIED
== END 2018-08-27 19:45 | disposition home or self-care (01) ==
LOC: FBPOP 17:23
PROVIDERS: ATTEND Obstetrics & Gynecology Obstetrics
DX: O21.2 Late vomiting of pregnancy (principal); Z3A.38 38 weeks gestation of pregnancy
CPT/HCPCS: 59025; 96360; 81001; 87086; 87077; 87186; G0463; 99214

== ENCOUNTER 2018-09-02 13:28 | Outpatient (CLI) | payer OTHER ==
[2018-09-02 14:51] VITALS: PULSE 100; RESP 16; TEMP 98.9
[2018-09-02 15:41] VITALS: BP 135/83
--- NOTE | 2018-09-16 15:35 | P.MSEPDOC ---
Presenting Problems - Arrival Data Date of Arrival on Unit: 09/02/18 Time of Arrival on Unit: 13:30 Mode of Transport: Stretcher - Complaint OB-Reason for Admission/Chief Complaint: Possible Onset of Labor Medical History - Information : 2 Para: 0 Term: 0 : 0 Abortions: Spontaneous or Elective: 1 Number of Living Children: 0 - Gestational Age Gestational Age by VIKI (wks/days): 39 Weeks and 3 Days - History Complications: GBS+, Smoker Review of Systems - Review of Systems Constitutional: No problems Breast: No problems ENT: No problems Cardiovascular: No problems Respiratory: No problems Gastrointestinal: No problems Genitourinary: No problems Musculoskeletal: No problems Neurological: No problems Skin: Rash Vital Signs - Temperature Temperature: 98.9 F Temperature Source: Oral - Pulse Right Pulse Rate: 100 Pulse Assessment Method: Pulse Oximetry - Respirations Respiratory Rate: 16 Oxygen Delivery Method: Room Air O2 Sat by Pulse Oximetry: 97 - Blood Pressure Right Arm Blood Pressure: 135/83 Blood Pressure Mean: 100 Blood Pressure Source: Automatic Cuff Medical Screen Scoring (Pre) - Cervical Exam Dilation: 1-3 cm = 1 Membranes: Intact - Uterine Contractions Frequency: > or = 36 weeks =2 Duration: > 40 seconds = 2 - Maternal Vital Signs Maternal Temperature: N/A Maternal Blood Pressure: N/A Signs of Preeclampsia: N/A Maternal Respirations: N/A - Maternal Trauma Maternal Trauma: N/A - Assessment - Baby A Baseline FHR: 135 Heart Rate - NICHD Category: Category I (Normal) = 0 NST: Reactive Position: N/A Station: N/A - Total Score - Baby A Total Score - Baby A: 5 - Total Score - Baby B Total Score - Baby B: 5 - Total Score - Baby C Total Score - Baby C: 5 - Level of Risk - Baby A Level of Risk - Baby A: Low (0-5) - Level of Risk - Baby B Level of Risk - Baby B: Low (0-5) - Level of Risk - Baby C Level of Risk - Baby C: Low (0-5) Physician Notification (Pre) - Physician Notified Physician Notified Date: 09/02/18 Physician Notified Time: 14:11 Physician/Practitioner Notifed:: Mariola Spoke With: Dr. Garnett New Order Received: Yes - Notification Comment Comment: Observe pt for 1 hour, complete SVE, and call with results Medical Screen Scoring (Post) - Uterine Contractions Frequency: > 5 minutes apart = 1 Duration: N/A Intensity: N/A - Maternal Vital Signs Maternal Temperature: N/A Maternal Blood Pressure: N/A Signs of Preeclampsia: N/A Maternal Respirations: N/A - Pain Assessment Pain Location and Character: Abdomen, Perineal Pain Scale Used: Numeric (1 - 10) Pain Intensity: 6 Pain Management Goal: 5 Pain Description: Cramping, Pressure Pain Frequency: Intermittent Pain Duration: 3 Pain Duration Units: Hours Pain Behavior: Facial Grimacing, Vocalization Pain Aggravating Factors: Position Non-Pharmacological Interventions: Environmental Control, Position/Reposition - Maternal Trauma Maternal Trauma: N/A - Assessment - Baby A Heart Rate: 135 Heart Rate - NICHD Category: Category I (Normal) = 0 NST: Reactive Position: N/A Station: N/A - Total Score Total Score - Baby A: 1 Total Score - Baby B: 1 Total Score - Baby C: 1 - Post Treatment Level of Risk Post Treatment Level of Risk - Baby A: Low (0-5) Post Treatment Level of Risk - Baby B: N/A Post Treatment Level of Risk - Baby C: N/A Physician Notification (Post) - Physician Notified Physician Notified Date: 09/02/18 Physician Notified Time: 15:10 Physician/Practitioner Notified:: Mariola Spoke With: Dr. Garnett New Order Received: Yes - Notification Comment Comment: PT to discharge home. Prescription of Augmentin 875mg sent to [facility] Disposition - Disposition OB Disposition: Discharge to home, Written follow up instructions reviewed Discharge Date: 09/02/18 Discharge Time: 15:15 I agree with the RN Medical Screening Exam: Yes Risk & Benefit of care provided described in d/c instruction: Yes Diagnosis: FALSE LABOR AT OR AFTER 37 COMPLETED WEEKS OF GESTATION
== END 2018-09-02 15:20 | disposition home or self-care (01) ==
LOC: FBPOP 13:28
PROVIDERS: ATTEND Obstetrics & Gynecology
DX: O47.1 False labor at or after 37 completed weeks of gestation (principal); O99.333 Smoking (tobacco) complicating pregnancy, third trimester; F17.200 Nicotine dependence, unspecified, uncomplicated; Z3A.39 39 weeks gestation of pregnancy
CPT/HCPCS: 59025; G0463; 99213

== ENCOUNTER 2018-09-03 15:01 | Inpatient (IN) | payer OTHER ==
[2018-09-03] MEDS ORDERED: CLINDAMYCIN 900 MG in DEXTROSE 5% IN WATER 50 ML IVPB STA ×2 (15:48)
[2018-09-03] MEDS ORDERED: CARBOPROST TROMETHAMINE 250 MCG/ML 1 ML AMP IM PRN (15:48)
[2018-09-03] MEDS ORDERED: TERBUTALINE 1 MG/ML VIAL SQ PRN (15:48)
[2018-09-03] MEDS ORDERED: OXYTOCIN 10 UNIT/ML 1 ML VIAL IM PRN (15:48)
[2018-09-03] MEDS ORDERED: LIDOCAINE 0.5% (PF) 5 MG/ML (50 ML SDV) SQ PRN (15:48)
[2018-09-03] MEDS ORDERED: METHYLERGONOVINE 0.2 MG/ML 1 ML AMP IM PRN (15:48)
[2018-09-03] MEDS ORDERED: PENICILLIN G POTASSIUM 5,000,000 UNIT in DEXTROSE 5% IN WATER 100 ML IVPB STA ×2 (15:56)
--- NOTE | 2018-09-03 15:59 | P.HPOB ---
History of Present Illness H&P Date: 09/03/18 Chief Complaint: Strong regular uterine contractions This is a 27-year-old white female 2 para 0010 EDC 09/07/2018 at 39-3/7 weeks' gestation. Patient presents with strong regular uterine contraction. Fetus is been active throughout the . She denies fluid leakage or vaginal bleeding. Past medical history is significant for chronic MRSA infection, with active lesion in the left lower anterior abdominal wall. She is on Augmentin at home for this issue, along with an active UTI. She also has a history of asthma, bipolar disorder, borderline personality disorder, bulging disks, hypothyroidism. Past surgical history significant for full extraction of third dentition, bilateral extraction of ingrown toenails, tonsillectomy. Current medications Augmentin 875 mg twice daily, vitamin daily, levothyroxine 50 MCG's daily. ALLERGIES include Rocephin to which reports a full body rash, Wellbutrin to which she reports worsening of her psychiatric symptoms, and latex ALLERGY. Family history significant for heart attack, mental illness, and hypertension. Social history patient smokes marijuana daily, one quarter pack tobacco daily. She is unemployed. She is single, father of the baby is present and involved. She denies alcohol use. history is significant for positive group B strep cultures, positive blood type A positive, rubella status nonimmune. Hepatitis B surface antigen, HIV testing, gonorrhea and chlamydia cultures negative. Pap smear normal. On exam this is a white female who is 5 foot 4 inches, 295 pounds, blood pressure 124/62, 98% O2 saturation. Patient is edentulous. She has a lesion in the left lower abdominal wall consistent with active MRSA infection. Extremities reveal trace edema. Cervix is 4 cm dilated, 80% effaced, -1 station, vertex presentation. Artificial amniorrhexis reveals moderately stained meconium fluid. heart rate is consistent with reactive NST. Uterine contractions are occurring approximately every 2-4 minutes apart spontaneously. Fashion: 39-3/7 weeks intrauterine , active spontaneous labor. Meconium-stained fluid. Active MRSA infection. Positive group B strep cultures. Positive UTI. Plan: Close maternal and surveillance. Penicillin G prophylaxis. Penicillin non-ALLERGY is confirmed with the patient at the bedside. shared services manager consult. Close maternal and surveillance. Anticipate normal spontaneous vaginal delivery. Review of Systems Constitutional: Reports as per HPI Past Medical History Past Medical History: Asthma, Thyroid Disorder Additional Past Medical History / Comment(s): INSOMNIA; BODERLINE PERSONALITY DISORDER, back pain hx of syncope, MURMUR CHILD,BRONCHITIS,CARPAL TUNNEL,ARHTIRITS,UTI'S, MIGRAINES."herniated disc neck/back" colitis History of Any Multi-Drug Resistant Organisms: MRSA Date of last positivie culture/infection: 07/31/18 MDRO Source:: GROIN, abdomen Past Surgical History: Adenoidectomy, Tonsillectomy Additional Past Surgical History / Comment(s): teeth pulled. SEVERAL AREAS ON BODY HAD i&D FROM AREAS WITH MRSA Past Anesthesia/Blood Transfusion Reactions: No Reported Reaction Additional Past Anesthesia/Blood Transfusion Reaction / Comment(s): CLAUSTERPHOBIA Smoking Status: Current every day smoker - Past Family History Mother Family Medical History: Myocardial Infarction ([place]) Additional Family Medical History / Comment(s): AT AGE 45 FROM [place] Father Additional Family Medical History / Comment(s): WHEN PT WAS 9 MONTHS OLD FROM A BRAIN ANUERYSM Medications and Allergies Home Medications Medication Instructions Recorded Confirmed Type Levothyroxine Sodium [Synthroid] 50 mcg PO HS 11/10/16 09/02/18 History Esg-Qikn-Sekpq Acid 1 cap PO HS 02/21/18 09/02/18 History [-U Capsule (formulary)] QUEtiapine FUMARATE [SEROquel] 400 mg PO HS 04/09/18 09/02/18 History Sertraline HCl [Zoloft] 100 mg PO HS 04/09/18 09/02/18 History Nitrofurantoin Monohyd/M-Cryst 09/02/18 History [Macrobid] Allergies Allergy/AdvReac Type Severity Reaction Status Date / Time adhesive tape Allergy Rash/Hives Verified 08/27/18 17:42 ceftriaxone sodium Allergy Rash/Hives Verified 08/27/18 17:42 [From Rocephin] latex Allergy Rash/Hives Verified 08/27/18 17:42 bupropion HCl AdvReac Hallucinati Verified 08/27/18 17:42 [From Wellbutrin] ons butalbital AdvReac Hallucinati Verified 08/27/18 17:42 ons Exam Intake and Output 09/03/18 09/03/18 09/03/18 06:59 14:59 22:59 Other: Weight 131.542 kg See dictation under HPI please Assessment and Plan Assessment: 39-3/7 weeks intrauterine , active labor, bipolar disorder, meconium- stained fluid, active MRSA infection, positive group B strep cultures. Plan: Penicillin G prophylaxis per protocol. Close maternal and surveillance. Band-Aid dressing over the active MRSA sore on the left lower abdominal wall. shared services manager consult. Oxytocin if clinically indicated. Anticipate normal spontaneous vaginal delivery. Time with Patient: Greater than 30
[2018-09-03] MEDS ORDERED: OXYTOCIN 30 UNITS/500 ML NS 30 UNIT in SALINE 1 500ML.BAG IV SCH (16:00)
[2018-09-03] MEDS: LACTATED RINGERS 1,000 ML IV SCH ×3 (16:32→21:36)
[2018-09-03 16:48] VITALS: BMI 49.8
[2018-09-03 17:03] LABS: Anisocytosis Slight; HCT 34.9 % (34.0-46.0); HGB 11.5 gm/dL (11.4-16.0); MCH 28.5 pg (25.0-35.0); MCHC 32.9 g/dL (31.0-37.0); MCV 86.6 fL (80.0-100.0); Mean Platelet Volume 11.7; Platelet Count 157 k/uL (150-450); RBC 4.03 m/uL (3.80-5.40); RDW 16.6 % (11.5-15.5); WBC 9.4 k/uL (3.8-10.6)
[2018-09-03 17:08] LABS: Amphetamine Screen,Urine Not Detected (NotDetected); Barbiturate Screen,Urine Not Detected (NotDetected); Benzodiazepines Screen,Urine Not Detected (NotDetected); Cocaine Screen,Urine Not Detected (NotDetected); Methadone Screen, Urine Not Detected (NotDetected); Opiate Screen,Urine Not Detected (NotDetected); Oxycodone Screen, Urine Not Detected (NotDetected); Phencyclidine Screen,Urine Not Detected (NotDetected); Tricyclic Antidepressant,Urine Not Detected (NotDetected); Urn Cannabinoid Scrn Detected (NotDetected)
[2018-09-03 17:26] LABS: Eosinophils # (M) 0.19 k/uL (0-0.7); Large Platelets Present; Lymphocytes # (M) 2.16 k/uL (1.0-4.8); Monocytes # (M) 0.28 k/uL (0-1.0); Neutrophils % (M) 72 %; Nucleated Red Blood Cells 0 /100 WBC (0-0); Total Cells Counted 100
[2018-09-03] MEDS ORDERED: ROPIVACAINE 100 MG, fentaNYL (PF) 200 MCG in SODIUM CHLORIDE 0.9% 76 ML EPIDURAL ONE (18:06)
[2018-09-03] MEDS: PENICILLIN G POTASSIUM 2,500,000 UNIT in DEXTROSE 5% IN WATER 100 ML IVPB SCH ×4 (19:59→23:46)
[2018-09-04] MEDS ORDERED: CLINDAMYCIN 900 MG in DEXTROSE 5% IN WATER 50 ML IVPB SCH ×2
[2018-09-04] MEDS ORDERED: SIMETHICONE 80 MG CHEWABLE PO PRN (02:44)
[2018-09-04] MEDS ORDERED: ACETAMINOPHEN TAB 325 MG TAB PO PRN (02:44)
[2018-09-04] MEDS ORDERED: ZOLPIDEM 5 MG TAB PO PRN (02:44)
[2018-09-04] MEDS ORDERED: HYDROCORTISONE 2.5% RECTAL CREAM 30 GM TUBE RECTAL PRN (02:44)
[2018-09-04] MEDS ORDERED: WITCH HAZEL 1 EACH MED..PAD TOPICAL PRN (02:44)
[2018-09-04] MEDS ORDERED: diphenhydrAMINE 50 MG/ML 1 ML VIAL IVP PRN ×2 (02:44)
[2018-09-04] MEDS ORDERED: BENZOCAINE/MENTHOL SPRAY 1 GM/SPRAY AEROSOL TOPICAL PRN (02:44)
[2018-09-04] MEDS ORDERED: diphenhydrAMINE 50 MG CAP PO PRN (02:44)
[2018-09-04] MEDS ORDERED: diphenhydrAMINE 25 MG CAP PO PRN (02:44)
[2018-09-04] MEDS ORDERED: HYDROcodone/APAP 7.5-325MG 1 EACH TAB PO PRN (02:44)
[2018-09-04] MEDS ORDERED: LANOLIN CREAM 5 GM TUBE TOPICAL PRN (02:44)
[2018-09-04] MEDS ORDERED: OXYTOCIN 20 UNITS/1000 ML NS 1,000 ML IV SCH (02:45)
--- NOTE | 2018-09-04 02:49 | P.PROBDLV ---
Vaginal Delivery Note - . Vaginal Delivery Note: The patient is a 27-year-old 2 para 0010 admitted at 39-4/7 weeks as established by good dating parameters. She is admitted in early active labor with her cervix dilated to 4 cm. Her has been complicated primarily by multiple recurrent skin infections with MRSA with subsequent antibiotic therapy. There have been no specific complications. She is known to be rubella nonimmune and additionally was found to be group B strep positive. On labor and delivery, all signs reassuring. She underwent artificial rupture of membranes demonstrating moderately meconium-stained fluid. She had antibiotic prophylaxis started for group B strep. She later had an epidural catheter placed for analgesia which worked well until approximately 7-8 cm of dilation at which time it no longer was working in normal fashion and was replaced. The second placement relieved much of her discomfort in that she progressed fairly quickly to complete where after she pushed for approximately 15-20 minutes to a normal spontaneous vaginal delivery of a viable 6 lbs. 14 oz. baby girl with Apgars of 8 at 1 minute and 8 at 5 minutes. The nose and mouth were thoroughly suctioned on the perineum and then again immediately following delivery at which time the infant was immediately pink and vigorous and the certified nurse rn radiation was dismissed without performing direct laryngoscopy. The placenta was delivered spontaneously, intact, and grossly normal although there was a large accessory cotyledon present. There was a grossly normal three-vessel cord inserted approximately 4-5 cm from the margin of the placental disc. There was a small midline second-degree perineal laceration which was repaired in standard fashion using 3-0 chromic catgut without difficulty. Estimated blood loss for the case was approximately 200 mL. There were no complications. All sponge, instrument, and needle counts were correct. Both mother and are resting comfortably in recovery.
[2018-09-04] MEDS ORDERED: MEASLES-MUMPS-RUBELLA VACC/PF 12,500 UNIT/0.5 ML VIAL SQ ONE (02:50)
[2018-09-04] MEDS: IBUPROFEN 600 MG TAB PO PRN ×2 (03:30→14:11)
[2018-09-04] MEDS: PENICILLIN G POTASSIUM 2,500,000 UNIT in DEXTROSE 5% IN WATER 100 ML IVPB SCH ×2 (05:22)
[2018-09-04] MEDS: SENNOSIDES-DOCUSATE SODIUM 1 EACH TAB PO SCH ×2 (08:15→23:51)
[2018-09-04] MEDS: LEVOTHYROXINE 50 MCG TAB PO SCH (08:43)
[2018-09-04] MEDS: HYDROcodone/APAP 5-325MG 1 EACH TAB PO PRN (19:04)
[2018-09-05] MEDS: HYDROcodone/APAP 5-325MG 1 EACH TAB PO PRN (05:44)
[2018-09-05 07:58] VITALS: BP 134/78; PULSE 82; RESP 16; TEMP 98.9
[2018-09-05] MEDS: SENNOSIDES-DOCUSATE SODIUM 1 EACH TAB PO SCH (08:00)
--- NOTE | 2018-09-05 08:00 | P.DS ---
Providers Date of admission: 09/03/18 15:45 Expected date of discharge: 09/05/18 Attending physician: Layla Garnett Primary care physician: Stated None Hospital Course: This is a 27-year-old white female 2 para 0010 EDC 09/06/2018 at 39-4/7 weeks' gestation. Patient presented in active labor. is remarkable for positive group B strep cultures, chronic MRSA infection, positive UTI. Rubella status nonimmune. Please see dictated history and physical for details. Artificial amniorrhexis revealed meconium-stained fluid. Penicillin was started and titrated per hospital protocol. Epidural placed per patient request. She ultimately went on to deliver a liveborn female with scores of 8 and 8 at one and 5 minutes respectively. There was a small second-degree perineal laceration easily repaired, and estimated blood loss of 200 mL's. Penicillin G prophylaxis was instituted upon admission. Please see dictated delivery note for details, 6 lbs. 14 oz. infant, 3120 g. This morning the patient is doing well. She is receiving instruction for breast-feeding, and a breast pump prescription is provided. She is instructed to continue her Augmentin as previously written for the urinary tract infection. She is reminded no intercourse, tampons or douching. She will use [id number] Advil or Aleve, or Motrin products as needed for pain. She will call me with any fevers shakes or chills, foul smelling or copious lochia, with the passage of large blood clots, with any pain not alleviated by [id number] products, or indeed with any concerns. She has an appointment with her psychologist this week, and an appointment with her psychiatrist on September 18, both of which she will keep. I believe her to be in good condition for discharge home. We have reviewed options for contraception, I have stressed to her to not be sexually active at this time, we will discuss contraception further in the office. I've also advised her to not swim in her local pond. Patient Condition at Discharge: Good Plan - Discharge Summary Discharge Rx Participant: No New Discharge Prescriptions: No Action Levothyroxine Sodium [Synthroid] 50 mcg PO HS Mhn-Hxet-Bdlzn Acid [-U Capsule (formulary)] 1 cap PO HS Sertraline HCl [Zoloft] 100 mg PO HS QUEtiapine FUMARATE [SEROquel] 400 mg PO HS Nitrofurantoin Monohyd/M-Cryst [Macrobid] Discharge Medication List Levothyroxine Sodium [Synthroid] 50 mcg PO HS 11/10/16 [History] Mpn-Suwv-Edqry Acid [-U Capsule (formulary)] 1 cap PO HS 02/21/18 [History] QUEtiapine FUMARATE [SEROquel] 400 mg PO HS 04/09/18 [History] Sertraline HCl [Zoloft] 100 mg PO HS 04/09/18 [History] Nitrofurantoin Monohyd/M-Cryst [Macrobid] 09/02/18 [History] Follow up Appointment(s)/Referral(s): Layla Garnett MD [STAFF PHYSICIAN] - 6 Weeks
[2018-09-05] MEDS: LEVOTHYROXINE 50 MCG TAB PO SCH (11:08)
== END 2018-09-05 11:20 | disposition home or self-care (01) | DRG 806 ==
LOC: FBPOP 15:01 → 4FBP 15:45
PROVIDERS: ADMIT Obstetrics & Gynecology; ATTEND Obstetrics & Gynecology
PROC: 10E0XZZ Delivery of Products of Conception, External Approach (ICD-10-PCS; principal; 2018-09-04)
PROC: 0KQM0ZZ Repair Perineum Muscle, Open Approach (ICD-10-PCS; 2018-09-04)
PROC: 00HU33Z Insertion of Infusion Device into Spinal Canal, Percutaneous Approach (ICD-10-PCS; 2018-09-04)
PROC: 3E0R3BZ Introduction of Anesthetic Agent into Spinal Canal, Percutaneous Approach (ICD-10-PCS; 2018-09-04)
DX: O77.0 Labor and delivery complicated by meconium in amniotic fluid (principal); O23.43 Unspecified infection of urinary tract in pregnancy, third trimester; Z37.0 Single live birth; O99.834 Other infection carrier state complicating childbirth; O99.344 Other mental disorders complicating childbirth; O99.334 Smoking (tobacco) complicating childbirth; F17.200 Nicotine dependence, unspecified, uncomplicated; O70.1 Second degree perineal laceration during delivery; O99.284 Endocrine, nutritional and metabolic diseases complicating childbirth; E03.9 Hypothyroidism, unspecified; O99.52 Diseases of the respiratory system complicating childbirth; J45.909 Unspecified asthma, uncomplicated; O99.824 Streptococcus B carrier state complicating childbirth; F60.3 Borderline personality disorder; F31.9 Bipolar disorder, unspecified; B95.62 Methicillin resistant Staphylococcus aureus infection as the cause of diseases classified elsewhere; O99.62 Diseases of the digestive system complicating childbirth; K21.9 Gastro-esophageal reflux disease without esophagitis; O99.72 Diseases of the skin and subcutaneous tissue complicating childbirth; L08.89 Other specified local infections of the skin and subcutaneous tissue; Z3A.39 39 weeks gestation of pregnancy; Z79.890 Hormone replacement therapy; Z79.899 Other long term (current) drug therapy; Z88.1 Allergy status to other antibiotic agents; Z91.040 Latex allergy status; Z88.8 Allergy status to other drugs, medicaments and biological substances; Z82.49 Family history of ischemic heart disease and other diseases of the circulatory system; Z81.8 Family history of other mental and behavioral disorders
CPT/HCPCS: 59025; 80306; 84112; 85025; 86850; 86900; 86901; 90707; 99213

== ENCOUNTER 2018-10-09 21:21 | Emergency (ER) | payer OTHER ==
[2018-10-09 21:39] VITALS: BP 136/71; PULSE 72; RESP 18; TEMP 98.4
[2018-10-09] MEDS ORDERED: KETOROLAC 30 MG/ML 1 ML VIAL IM STA (22:26)
--- NOTE | 2018-10-09 22:55 | XR ---
EXAM: XR Left Hip With Pelvis When Performed, 2 or 3 Views CLINICAL HISTORY: Hip pain. Reason: Pain TECHNIQUE: Two or three views of the left hip, with pelvis when performed. COMPARISON: 10/22/2017. FINDINGS: Bones/joints: No hip fracture or dislocation is noted. Bony pelvis is unremarkable. Sacroiliac joints and lower lumbar spine are unremarkable. Soft tissues: Soft tissues are unremarkable. IMPRESSION: No left hip fracture or dislocation.
--- NOTE | 2018-10-09 23:15 | ED ---
Lower Extremity Injury HPI - General Chief Complaint: Extremity Injury, Lower Stated Complaint: hip pain left Time Seen by Provider: 10/09/18 21:37 Source: patient Mode of arrival: ambulatory Limitations: no limitations - History of Present Illness Initial Comments: 27-year-old female patient presents to the emergency department today for evaluation of left hip pain and discomfort. Patient states this started last night around 0300 when she was attempting to climb into and out of a dumpster. She states when she was going to get and she lifted her leg up high to climb in and she felt a tearing sensation in the left hip. Patient states that the pain has persisted. She is reporting pain to the anterior and left lateral hip. Denies any radiation of the pain down the leg. Denies numbness or tingling to the leg. She is able to ambulate. States she did take Tylenol without relief of symptoms. Denies any falls or other injuries with this. Patient denies any headache, neck pain, back pain, chest pain, shortness of breath, dizziness, weakness, abdominal pain, nausea, vomiting, or difficulties with bowel movements or urination. - Related Data Home Medications Medication Instructions Recorded Confirmed Levothyroxine Sodium [Synthroid] 50 mcg PO HS 11/10/16 09/02/18 Vjh-Akzi-Xkryk Acid 1 cap PO HS 02/21/18 09/02/18 [-U Capsule (formulary)] QUEtiapine FUMARATE [SEROquel] 400 mg PO HS 04/09/18 09/02/18 Sertraline HCl [Zoloft] 100 mg PO HS 04/09/18 09/02/18 Nitrofurantoin Monohyd/M-Cryst 09/02/18 [Macrobid] Previous Rx's Medication Instructions Recorded Ibuprofen [Motrin] 600 mg PO Q8HR PRN #30 tab 10/09/18 Allergies Allergy/AdvReac Type Severity Reaction Status Date / Time adhesive tape Allergy Rash/Hives Verified 10/09/18 21:37 ceftriaxone sodium Allergy Rash/Hives Verified 10/09/18 21:37 [From Rocephin] latex Allergy Rash/Hives Verified 10/09/18 21:37 bupropion HCl AdvReac Hallucinati Verified 10/09/18 21:37 [From Wellbutrin] ons butalbital AdvReac Hallucinati Verified 10/09/18 21:37 ons Review of Systems ROS Statement: Those systems with pertinent positive or pertinent negative responses have been documented in the HPI. ROS Other: All systems not noted in ROS Statement are negative. Past Medical History Past Medical History: Asthma, Thyroid Disorder Additional Past Medical History / Comment(s): INSOMNIA; BODERLINE PERSONALITY DISORDER, back pain hx of syncope, MURMUR CHILD,BRONCHITIS,CARPAL TUNNEL,ARHTIRITS,UTI'S, MIGRAINES."herniated disc neck/back" colitis History of Any Multi-Drug Resistant Organisms: C-DIFF, MRSA Date of last positivie culture/infection: 07/31/182015 MDRO Source:: GROIN, abdomen, cdiff Past Surgical History: Adenoidectomy, Tonsillectomy Additional Past Surgical History / Comment(s): teeth pulled. SEVERAL AREAS ON BODY HAD i&D FROM AREAS WITH MRSA Past Anesthesia/Blood Transfusion Reactions: No Reported Reaction Additional Past Anesthesia/Blood Transfusion Reaction / Comment(s): CLAUSTERPHOBIA Past Psychological History: Anxiety, Bipolar, Depression, PTSD Smoking Status: Current every day smoker Past Alcohol Use History: Rare Past Drug Use History: Marijuana - Past Family History Mother Family Medical History: Myocardial Infarction (MD) Additional Family Medical History / Comment(s): AT AGE 45 FROM [place] Father Additional Family Medical History / Comment(s): WHEN PT WAS 9 MONTHS OLD FROM A BRAIN ANUERYSM General Exam Limitations: no limitations General appearance: alert, in no apparent distress, other (This is a well- developed, well-nourished adult female patient in no acute distress. Vital signs upon presentation are temperature 98.4F, pulse 72, respirations 18, blood pressure 136/71, pulse ox 100% on room air.) Eye exam: Present: normal appearance, PERRL, EOMI. Absent: scleral icterus, conjunctival injection, periorbital swelling ENT exam: Present: normal exam, normal oropharynx, mucous membranes moist Respiratory exam: Present: normal lung sounds bilaterally. Absent: respiratory distress, wheezes, rales, rhonchi, stridor Cardiovascular Exam: Present: regular rate, normal rhythm, normal heart sounds. Absent: systolic murmur, diastolic murmur, rubs, gallop, clicks GI/Abdominal exam: Present: soft, normal bowel sounds. Absent: distended, tenderness, guarding, rebound, rigid Extremities exam: Present: normal inspection, full ROM, normal capillary refill, other (Inspection of the left hip and scan of the left lower trauma he is unre markable. Is warm, pink, dry. Cap refills less than 3 seconds. Pedal and posttibial pulses are 2+ and equal bilaterally. Full range of Motion is intact.). Absent: tenderness, pedal edema, joint swelling, calf tenderness Neurological exam: Present: alert, oriented X3, CN II-XII intact Psychiatric exam: Present: normal affect, normal mood Skin exam: Present: warm, dry, intact, normal color. Absent: rash Course Vital Signs 10/09/18 21:35 Temperature 98.4 F Pulse Rate 72 Respiratory 18 Rate Blood Pressure 136/71 O2 Sat by Pulse 100 Oximetry Medical Decision Making - Medical Decision Making 27-year-old female patient presents to the emergency department today for evaluation of left hip pain after straining yesterday while climbing into a dumpster. Physical examination is unremarkable. She has full range of motion. Neurovascular status is intact. X-ray of the hip is unremarkable. She'll be discharged home with anti-inflammatory medication. Symptoms are likely related to hip strain. She is instructed to follow-up with her primary care physician for recheck in 1-2 days. Return parameters are discussed in detail. She verbalizes understanding and agrees with this plan. Disposition Clinical Impression: Strain of left hip Disposition: HOME SELF-CARE Condition: Good Instructions (If sedation given, give patient instructions): Hip Pain (ED) Additional Instructions: Rest, apply ice to the left hip. Take medication as needed for pain control. Follow-up with your primary care physician for recheck in 1-2 days. Return to the emergency department immediately for any new, worsening, or concerning symptoms. Prescriptions: Ibuprofen [Motrin] 600 mg PO Q8HR PRN #30 tab PRN Reason: Pain Is patient prescribed a controlled substance at d/c from ED?: No Referrals: Natty Finnegan MD [Primary Care Provider] - 1-2 days Time of Disposition: 23:15
== END 2018-10-09 23:35 | disposition home or self-care (01) ==
LOC: EC 21:21
DX: O9A.23 Injury, poisoning and certain other consequences of external causes complicating the puerperium (principal); S76.012A Strain of muscle, fascia and tendon of left hip, initial encounter; O99.285 Endocrine, nutritional and metabolic diseases complicating the puerperium; E07.9 Disorder of thyroid, unspecified; O99.345 Other mental disorders complicating the puerperium; F31.9 Bipolar disorder, unspecified; F43.10 Post-traumatic stress disorder, unspecified; F41.9 Anxiety disorder, unspecified; O99.335 Smoking (tobacco) complicating the puerperium; F17.200 Nicotine dependence, unspecified, uncomplicated; Z86.14 Personal history of Methicillin resistant Staphylococcus aureus infection; Z79.890 Hormone replacement therapy; Z79.899 Other long term (current) drug therapy; Z88.1 Allergy status to other antibiotic agents; Z88.8 Allergy status to other drugs, medicaments and biological substances; Z91.040 Latex allergy status; Z91.048 Other nonmedicinal substance allergy status; X50.9XXA Other and unspecified overexertion or strenuous movements or postures, initial encounter
CPT/HCPCS: 73502; 99283; 96372; J1885

== ENCOUNTER 2018-11-11 10:30 | Emergency (ER) | payer OTHER ==
[2018-11-11 10:41] VITALS: BP 133/82; PULSE 84; RESP 16; TEMP 98.2
--- NOTE | 2018-11-11 11:02 | ED ---
General Adult HPI - General Chief complaint: Skin/Abscess/Foreign Body Stated complaint: Infection Time Seen by Provider: 11/11/18 10:44 Source: patient, RN notes reviewed Mode of arrival: ambulatory Limitations: no limitations - History of Present Illness Initial comments: 28 year old female presents to the emergency department for chief complaint of a bscesses in the armpits. Patient states this has been ongoing for quite some time. States she had bronchitis so her doctor gave her azithromycin to cover both the abscesses and the bronchitis. However patient states she has a history of MRSA and the azithromycin did not help. States she has not seen a surgeon for this. States she has abscesses that chronically tracked through Pro her armpits. Denies any fevers or chills. States she is not here for bronchitis as this has improved.Patient has no other complaints at this time including shortness of breath, chest pain, abdominal pain, nausea or vomiting, headache, or visual changes. - Related Data Home Medications Medication Instructions Recorded Confirmed Cqa-Tthd-Xejyy Acid 1 cap PO HS 02/21/18 09/02/18 [-U Capsule (formulary)] Sertraline HCl [Zoloft] 100 mg PO HS 04/09/18 09/02/18 Norgestimate-Ethinyl Estradiol 1 tab PO DAILY 11/11/18 11/11/18 [Mononessa 28 Tablet] OXcarbazepine [Trileptal] 600 mg PO BID 11/11/18 11/11/18 QUEtiapine [SEROquel] 100 mg PO HS 11/11/18 11/11/18 Allergies Allergy/AdvReac Type Severity Reaction Status Date / Time adhesive tape Allergy Rash/Hives Verified 11/11/18 11:01 ceftriaxone sodium Allergy Rash/Hives Verified 11/11/18 11:01 [From Rocephin] latex Allergy Rash/Hives Verified 11/11/18 11:01 bupropion HCl AdvReac Hallucinati Verified 11/11/18 11:01 [From Wellbutrin] ons butalbital AdvReac Hallucinati Verified 11/11/18 11:01 ons Review of Systems ROS Statement: Those systems with pertinent positive or pertinent negative responses have been documented in the HPI. ROS Other: All systems not noted in ROS Statement are negative. Past Medical History Past Medical History: Asthma, Thyroid Disorder Additional Past Medical History / Comment(s): INSOMNIA; BODERLINE PERSONALITY DISORDER, back pain hx of syncope, MURMUR CHILD,BRONCHITIS,CARPAL TUNNEL,ARHTIRITS,UTI'S, MIGRAINES."herniated disc neck/back" colitis History of Any Multi-Drug Resistant Organisms: C-DIFF, MRSA Date of last positivie culture/infection: 07/31/182015 MDRO Source:: GROIN, abdomen, cdiff Past Surgical History: Adenoidectomy, Tonsillectomy Additional Past Surgical History / Comment(s): teeth pulled. SEVERAL AREAS ON BODY HAD i&D FROM AREAS WITH MRSA Past Anesthesia/Blood Transfusion Reactions: No Reported Reaction Additional Past Anesthesia/Blood Transfusion Reaction / Comment(s): CLAUSTERPHOBIA Past Psychological History: Anxiety, Bipolar, Depression, PTSD Smoking Status: Current every day smoker Past Alcohol Use History: Rare Past Drug Use History: Marijuana - Past Family History Mother Family Medical History: Myocardial Infarction (OR) Additional Family Medical History / Comment(s): AT AGE 45 FROM OR Father Additional Family Medical History / Comment(s): WHEN PT WAS 9 MONTHS OLD FROM A BRAIN ANUERYSM General Exam Limitations: no limitations General appearance: alert, in no apparent distress Head exam: Present: atraumatic, normocephalic, normal inspection Eye exam: Present: normal appearance, PERRL, EOMI. Absent: scleral icterus, conjunctival injection, periorbital swelling ENT exam: Present: normal exam, mucous membranes moist Neck exam: Present: normal inspection, full ROM. Absent: tenderness, meningismus, lymphadenopathy Respiratory exam: Present: normal lung sounds bilaterally. Absent: respiratory distress, wheezes, rales, rhonchi, stridor Cardiovascular Exam: Present: regular rate, normal rhythm, normal heart sounds. Absent: systolic murmur, diastolic murmur, rubs, gallop, clicks Skin exam: Present: other (Patient has indurated small abscesses noted throughout the bilateral armpits. These are not fluctuant and would not benefit from incision and drainage at this time. There is no overlying cellulitis or erythema.) Course Vital Signs 11/11/18 10:39 Temperature 98.2 F Pulse Rate 84 Respiratory 16 Rate Blood Pressure 133/82 O2 Sat by Pulse 95 Oximetry Medical Decision Making - Medical Decision Making 28-year-old presents for bilateral armpit abscesses that have been ongoing for quite some time. States either chronic. States that her doctor gave her a Z- Jose Alberto because she also had bronchitis but it did not help. States they do track. On exam patient has indurated abscesses noted however these will not benefit from incision and drainage at this time as there is no fluctuance whatsoever. Patient states she has a history of MRSA and is concerned she needs an antibiotic that covers this. She denies any fevers at home. Vitals are stable. Patient was given prescription for Bactrim. I recommended patient follow-up with the surgeon as well as this is likely hidradenitis. He does agree with this. She agrees to continue applying warm compresses and take the antibiotic given. She will return if she has any worsening symptoms or develops fevers. I discussed this case with attending Dr. Leblanc who agrees with this assessment and treatment plan. Disposition Clinical Impression: Hidradenitis suppurativa Disposition: HOME SELF-CARE Condition: Good Instructions (If sedation given, give patient instructions): Hidradenitis Suppurativa (ED) Additional Instructions: Take antibiotic as directed. Please follow up with primary care and surgery in 1-2 days. Please return here to the emergency department if you have any worsening symptoms. Is patient prescribed a controlled substance at d/c from ED?: No Referrals: Natty Finnegan MD [Primary Care Provider] - 1-2 days Adrián Clemens MD [STAFF PHYSICIAN] - 1-2 days Time of Disposition: 11:01
== END 2018-11-11 11:07 | disposition home or self-care (01) ==
LOC: EC 10:30
DX: L73.2 Hidradenitis suppurativa (principal); F41.9 Anxiety disorder, unspecified; F43.10 Post-traumatic stress disorder, unspecified; F31.9 Bipolar disorder, unspecified; F17.200 Nicotine dependence, unspecified, uncomplicated; Z79.899 Other long term (current) drug therapy; Z79.3 Long term (current) use of hormonal contraceptives; Z88.1 Allergy status to other antibiotic agents; Z88.8 Allergy status to other drugs, medicaments and biological substances; Z91.040 Latex allergy status; Z91.048 Other nonmedicinal substance allergy status
CPT/HCPCS: 99283

== ENCOUNTER 2019-02-18 00:02 | Emergency (ER) | payer OTHER ==
[2019-02-18 00:09] VITALS: BP 116/73; PULSE 85; RESP 18; TEMP 98.1
[2019-02-18] MEDS ORDERED: KETOROLAC 30 MG/ML 1 ML VIAL IM STA (01:53)
[2019-02-18] MEDS ORDERED: HYDROcodone/APAP 5-325MG 1 EACH TAB PO STA (01:53)
[2019-02-18] MEDS ORDERED: SULFAMETH-TMP DS STARTER PACK 2 TAB BTL PO STA (01:53)
[2019-02-18] MEDS ORDERED: LIDOCAINE 1% INJ 10MG/ML (20 ML MDV) SQ ONE (01:54)
[2019-02-18] MEDS ORDERED: ACET/COD 300 MG/30 MG STARTER PACK 6 TAB BTL PO STA (02:34)
--- NOTE | 2019-02-18 02:34 | ED ---
Skin/Abscess/FB HPI - General Chief complaint: Skin/Abscess/Foreign Body Stated complaint: Abscess under arm Time Seen by Provider: 02/18/19 01:35 Source: patient Mode of arrival: ambulatory Limitations: no limitations - History of Present Illness Initial comments: 28 year-old female patient presents to the emergency department today for evaluation of left axillary abscess. Patient states over the last couple of days she has had increasing pain and swelling to the area. States over the last day the area has doubled in size. States she was getting clear fluid drainage from the area. She denies any fevers but states she has been chilled. States that she has had abscesses in the past which were positive for MRSA. She denies any alcohol or drug use. Denies history of IV drug use. Denies any recent antibiotic use. Patient denies any recent rash, shortness breath, chest pain, abdominal pain, nausea, vomiting, diarrhea, constipation, back pain, numbness, tingling, dizziness, weakness, hematuria, dysuria, urinary urgency, urinary frequency, headache, visual changes, or any other complaints. - Related Data Home Medications Medication Instructions Recorded Confirmed Uxh-Aaxl-Ocxxg Acid 1 cap PO DAILY 02/21/18 11/11/18 [-U Capsule (formulary)] Sertraline HCl [Zoloft] 100 mg PO HS 04/09/18 11/11/18 Norgestimate-Ethinyl Estradiol 1 tab PO DAILY 11/11/18 11/11/18 [Mononessa 28 Tablet] OXcarbazepine [Trileptal] 600 mg PO BID 11/11/18 11/11/18 QUEtiapine [SEROquel] 100 mg PO HS 11/11/18 11/11/18 Allergies Allergy/AdvReac Type Severity Reaction Status Date / Time adhesive tape Allergy Rash/Hives Verified 02/18/19 00:09 ceftriaxone sodium Allergy Rash/Hives Verified 02/18/19 00:09 [From Rocephin] latex Allergy Rash/Hives Verified 02/18/19 00:09 bupropion HCl AdvReac Hallucinati Verified 02/18/19 00:09 [From Wellbutrin] ons butalbital AdvReac Hallucinati Verified 02/18/19 00:09 ons Review of Systems ROS Statement: Those systems with pertinent positive or pertinent negative responses have been documented in the HPI. ROS Other: All systems not noted in ROS Statement are negative. Past Medical History Past Medical History: Asthma, Thyroid Disorder Additional Past Medical History / Comment(s): INSOMNIA; BODERLINE PERSONALITY DISORDER, back pain hx of syncope, MURMUR CHILD,BRONCHITIS,CARPAL TUNNEL,ARHTIRITS,UTI'S, MIGRAINES."herniated disc neck/back" colitis History of Any Multi-Drug Resistant Organisms: C-DIFF, MRSA Date of last positivie culture/infection: 07/31/182015 MDRO Source:: GROIN, abdomen, cdiff Past Surgical History: Adenoidectomy, Tonsillectomy Additional Past Surgical History / Comment(s): teeth pulled. SEVERAL AREAS ON BODY HAD i&D FROM AREAS WITH MRSA Past Anesthesia/Blood Transfusion Reactions: No Reported Reaction Additional Past Anesthesia/Blood Transfusion Reaction / Comment(s): CLAUSTERPHOBIA Past Psychological History: Anxiety, Bipolar, Depression, PTSD Smoking Status: Current every day smoker Past Alcohol Use History: Rare Past Drug Use History: Marijuana - Past Family History Mother Family Medical History: Myocardial Infarction ([place]) Additional Family Medical History / Comment(s): AT AGE 45 FROM [place] Father Additional Family Medical History / Comment(s): WHEN PT WAS 9 MONTHS OLD FROM A BRAIN ANUERYSM General Exam Limitations: no limitations General appearance: alert, in no apparent distress, other (This is a well- developed, well-nourished adult female patient in no acute distress. Vital signs upon presentation are temperature 98.1F, pulse 85, respirations 18, blood pressure 116/73, pulse ox 99% on room air.) Respiratory exam: Present: normal lung sounds bilaterally. Absent: respiratory distress, wheezes, rales, rhonchi, stridor Cardiovascular Exam: Present: regular rate, normal rhythm, normal heart sounds. Absent: systolic murmur, diastolic murmur, rubs, gallop, clicks Extremities exam: Present: full ROM, normal capillary refill, other (There is a 2 cm abscess with surrounding erythema noted to the left axillary region. There is some induration but essential area of fluctuance. Skin is otherwise pink, warm, dry. Cap refills less than 3 seconds. Radial pulses 2+ and equal bilaterally.). Absent: normal inspection, tenderness, pedal edema, joint swelling, calf tenderness Neurological exam: Present: alert, oriented X3, CN II-XII intact Psychiatric exam: Present: normal affect, normal mood Skin exam: Present: warm, dry, intact, normal color. Absent: rash Course Vital Signs 02/18/19 00:06 Temperature 98.1 F Pulse Rate 85 Respiratory 18 Rate Blood Pressure 116/73 O2 Sat by Pulse 99 Oximetry Procedures - Incision & Drainage Consent Obtained: verbal consent Indication: abscess Site: upper extremity (Left axilla) Size (cm): 2 Anesthetic Used: lidocaine 1% Amount (mLs): 5 I&D Cleaning Method: Betadine Sterile Field Used?: Yes Scalpel Used: #11 I&D Drainage Obtained: Pus, Blood Packing: Plain Culture Obtained?: Yes Patient Tolerated Procedure: well, no complications Medical Decision Making - Medical Decision Making 28 year-old female patient presented to the emergency department today for evaluation of left axillary abscess. Physical examination did reveal 2 cm abscess with surrounding erythema. Did perform incision and drainage, culture was obtained. Did pack the wound with plain gauze. She'll be discharged to follow up with her primary care physician for recheck in 1-2 days. She is given a prescription for Bactrim. Return parameters discussed in detail. They verbalize understanding and agrees with this plan. Disposition Clinical Impression: Abscess of left axilla Disposition: HOME SELF-CARE Condition: Good Instructions (If sedation given, give patient instructions): Abscess Incision and Drainage (ED), Abscess (ED) Additional Instructions: Apply warm compresses 20 minutes at a time at least 4-5 times daily. Complete a ntibiotic prescription and full. Take pain medication as directed. Follow-up with your primary care physician for recheck of the area and removal of packing in 3 days. Return to the emergency department immediately for any new, worsening, or concerning symptoms. Is patient prescribed a controlled substance at d/c from ED?: No Referrals: None,Stated [Primary Care Provider] - 1-2 days Time of Disposition: 02:34
== END 2019-02-18 03:10 | disposition home or self-care (01) ==
LOC: EC 00:02
DX: L02.412 Cutaneous abscess of left axilla (principal); F41.9 Anxiety disorder, unspecified; F31.9 Bipolar disorder, unspecified; F17.200 Nicotine dependence, unspecified, uncomplicated; Z79.899 Other long term (current) drug therapy; Z91.048 Other nonmedicinal substance allergy status; Z91.040 Latex allergy status; Z88.1 Allergy status to other antibiotic agents; Z88.8 Allergy status to other drugs, medicaments and biological substances
CPT/HCPCS: 87070; 87205; 87077; 87186; 99283; 10060; 96372; J2001; J1885

== ENCOUNTER 2019-02-20 11:45 | Emergency (ER) | payer OTHER ==
[2019-02-20] MEDS ORDERED: LIDOCAINE 5% PATCH TOPICAL STA (12:23)
[2019-02-20] MEDS ORDERED: KETOROLAC 30 MG/ML 1 ML VIAL IVP STA (12:24)
[2019-02-20] MEDS ORDERED: CYCLOBENZAPRINE 10 MG TAB PO STA (12:24)
--- NOTE | 2019-02-20 13:09 | ED ---
Back Pain HPI - General Chief Complaint: Back Pain/Injury Stated Complaint: Back injury Time Seen by Provider: 02/20/19 12:08 Source: patient, EMS Limitations: no limitations - History of Present Illness Initial Comments: Patient is a 28-year-old female with history of chronic back pain, degenerative disc disease and disc herniation presenting to emergency Department with a chief complaint of back pain. Patient states she was attempting to change the diapers on her baby when she bent over and felt a sudden pop in the lower thoracic upper lumbar region causing a sudden onset of pain. She reports the pain is localized to that region with some radiation to the left side. She reports the pain is exacerbated with left and right rotation. Denies any chest pain. She states she cannot take a full breath because the pain is so high. Denies any focal neural deficits. Denies taking any medication to alleviate the symptoms. She reports smoking marijuana to alleviate her symptoms. Denies saddle anesthesia, urinary or bowel incontinence. Denies any abdominal pain. - Related Data Home Medications Medication Instructions Recorded Confirmed Sertraline HCl [Zoloft] 100 mg PO HS 04/09/18 02/20/19 Norgestimate-Ethinyl Estradiol 1 tab PO DAILY 11/11/18 02/20/19 [Mononessa 28 Tablet] OXcarbazepine [Trileptal] 600 mg PO BID 11/11/18 02/20/19 QUEtiapine [SEROquel] 100 mg PO HS 11/11/18 02/20/19 Previous Rx's Medication Instructions Recorded Cyclobenzaprine [Flexeril] 10 mg PO TID PRN #15 tab 02/20/19 Allergies Allergy/AdvReac Type Severity Reaction Status Date / Time adhesive tape Allergy Rash/Hives Verified 02/20/19 14:39 ceftriaxone sodium Allergy Rash/Hives Verified 02/20/19 14:39 [From Rocephin] latex Allergy Rash/Hives Verified 02/20/19 14:39 bupropion HCl AdvReac Hallucinati Verified 02/20/19 14:39 [From Wellbutrin] ons butalbital AdvReac Hallucinati Verified 02/20/19 14:39 ons Review of Systems ROS Statement: Those systems with pertinent positive or pertinent negative responses have been documented in the HPI. ROS Other: All systems not noted in ROS Statement are negative. Past Medical History Past Medical History: Asthma, Thyroid Disorder Additional Past Medical History / Comment(s): INSOMNIA; BODERLINE PERSONALITY DISORDER, back pain hx of syncope, MURMUR CHILD,BRONCHITIS,CARPAL TUNNEL,ARHTIRITS,UTI'S, MIGRAINES."herniated disc neck/back" colitis History of Any Multi-Drug Resistant Organisms: C-DIFF, MRSA Date of last positivie culture/infection: 07/31/182015 MDRO Source:: GROIN, abdomen, cdiff Past Surgical History: Adenoidectomy, Tonsillectomy Additional Past Surgical History / Comment(s): teeth pulled. SEVERAL AREAS ON BODY HAD i&D FROM AREAS WITH MRSA Past Anesthesia/Blood Transfusion Reactions: No Reported Reaction Additional Past Anesthesia/Blood Transfusion Reaction / Comment(s): CLAUSTERPHOBIA Past Psychological History: Anxiety, Bipolar, Depression, PTSD Smoking Status: Current every day smoker Past Alcohol Use History: Rare Past Drug Use History: Marijuana - Past Family History Mother Family Medical History: Myocardial Infarction ([place]) Additional Family Medical History / Comment(s): AT AGE 45 FROM [place] Father Additional Family Medical History / Comment(s): WHEN PT WAS 9 MONTHS OLD FROM A BRAIN ANUERYSM General Exam Limitations: no limitations General appearance: alert, in no apparent distress, obese Head exam: Present: atraumatic, normocephalic, normal inspection Eye exam: Present: normal appearance, PERRL, EOMI Pupils: Present: normal accommodation ENT exam: Present: normal exam Neck exam: Present: normal inspection, full ROM. Absent: tenderness (No cervical tenderness) Respiratory exam: Present: normal lung sounds bilaterally. Absent: respiratory distress, wheezes, rales Cardiovascular Exam: Present: regular rate, normal rhythm, normal heart sounds GI/Abdominal exam: Present: soft. Absent: distended, tenderness, guarding Extremities exam: Present: normal inspection, full ROM, normal capillary refill, other (+2 ulnar and radial pulses bilaterally. +2 dorsalis pedis and posterior tibialis bilaterally.) Back exam: Present: normal inspection, full ROM, tenderness, paraspinal tenderness (Left paraspinal tenderness in the lower thoracic upper lumbar region.), vertebral tenderness (Tenderness in the lower thoracic and upper lumbar region. ) Neurological exam: Present: alert, oriented X3, CN II-XII intact Psychiatric exam: Present: normal affect, normal mood Skin exam: Present: warm, dry, intact, normal color Course Vital Signs 02/20/19 02/20/19 11:47 14:58 Temperature 98 F Pulse Rate 67 65 Respiratory 20 18 Rate Blood Pressure 136/77 134/80 O2 Sat by Pulse 100 98 Oximetry Medical Decision Making - Medical Decision Making Patient is 28-year-old male fever history of chronic back pain, degenerative disc disease and herniated disks presenting to the emergency department with a chief complaint of back pain. This was a sudden onset of pain that she attempted to bend over to change a diaper. The physical examination she does have some left paraspinal tenderness and vertebral tenderness in the upper lumbar lower thoracic region. No cauda equina. No red flags. No focal deficits. Strength is 5/5 in upper and lower extremities. I have low suspicion for an aortic dissection. No abdominal pain or chest pain. Patient was given Flexeril, Toradol and a Lidoderm patch. Reevaluation patient reports improvement in symptoms although the pain is still persistent. She reports there is some spasming at this moment. Patient was given 3 mg of Valium. Reevaluation patient reports the pain has almost completely resolved. She is able to rotate without much difficulty. Patient advised to follow-up with an finish specialist. Patient will be discharged with Flexeril advised about the possible side effects of medication. Patient advised not to drive or operate heavy machinery when taking the medication. Strict return parameters were thoroughly discussed with patient was understanding and agreeable. Case discussed with physician. Disposition Clinical Impression: Mechanical back pain Disposition: HOME SELF-CARE Instructions (If sedation given, give patient instructions): Acute Low Back Pain (ED) Additional Instructions: Please follow up with an finish specialist. Alternate between Tylenol and ibuprofen for pain control. Take prescribed medication as directed. Return to emergency department if symptoms worsen. Prescriptions: Cyclobenzaprine [Flexeril] 10 mg PO TID PRN #15 tab PRN Reason: Muscle Spasm Is patient prescribed a controlled substance at d/c from ED?: No Referrals: Reinaldo Donaldson MD [Primary Care Provider] - 1-2 days Luann Perez DO [Doctor of Osteopathic Medicine] - 1-2 days Time of Disposition: 15:29
[2019-02-20] MEDS ORDERED: DIAZEPAM 5 MG/ML 2 ML INJ IVP STA (14:20)
[2019-02-20 14:59] VITALS: RESP 18
[2019-02-20 15:55] VITALS: BP 135/77; PULSE 70; TEMP 98.8
== END 2019-02-20 16:03 | disposition home or self-care (01) ==
LOC: EC 11:45
DX: M54.9 Dorsalgia, unspecified (principal); F41.9 Anxiety disorder, unspecified; F31.9 Bipolar disorder, unspecified; F43.10 Post-traumatic stress disorder, unspecified; F17.200 Nicotine dependence, unspecified, uncomplicated; Z79.899 Other long term (current) drug therapy; Z91.048 Other nonmedicinal substance allergy status; Z88.1 Allergy status to other antibiotic agents; Z91.040 Latex allergy status; Z88.8 Allergy status to other drugs, medicaments and biological substances
CPT/HCPCS: 93005; 99284; 96374; 96375; J3360; J1885

== ENCOUNTER 2019-03-17 19:23 | Emergency (ER) | payer OTHER ==
[2019-03-17] MEDS ORDERED: CYCLOBENZAPRINE 10 MG TAB PO STA (19:35)
[2019-03-17] MEDS ORDERED: LIDOCAINE 5% PATCH TOPICAL STA (19:35)
[2019-03-17] MEDS ORDERED: KETOROLAC 30 MG/ML 1 ML VIAL IM STA (19:35)
[2019-03-17] MEDS ORDERED: CYCLOBENZAPRINE 10MG STARTER 3 TAB BTL PO STA (19:44)
--- NOTE | 2019-03-17 19:46 | ED ---
Back Pain HPI - General Chief Complaint: Back Pain/Injury Stated Complaint: back pain Time Seen by Provider: 03/17/19 19:33 Source: patient Limitations: no limitations - History of Present Illness Initial Comments: Patient is a 28-year-old female with history of chronic back pain presenting to emergency Department with a chief complaint of back pain. Patient reports that she bent over to vegetable picker her daughter and she pulled a muscle in the right thoracic back region without any radiation of the pain. States she is had similar pain like this and this feels same. States she tried taking Aleve at home with minimal improvement. Denies any chest pain, nausea vomiting diarrhea. Denies any saddle anesthesia, urinary bowel incontinence. No focal neuro deficits - Related Data Home Medications Medication Instructions Recorded Confirmed Sertraline HCl [Zoloft] 100 mg PO HS 04/09/18 02/20/19 Norgestimate-Ethinyl Estradiol 1 tab PO DAILY 11/11/18 02/20/19 [Mononessa 28 Tablet] OXcarbazepine [Trileptal] 600 mg PO BID 11/11/18 02/20/19 QUEtiapine [SEROquel] 100 mg PO HS 11/11/18 02/20/19 Previous Rx's Medication Instructions Recorded Cyclobenzaprine [Flexeril] 10 mg PO TID PRN #15 tab 02/20/19 Cyclobenzaprine [Flexeril] 10 mg PO TID PRN #15 tab 03/17/19 Allergies Allergy/AdvReac Type Severity Reaction Status Date / Time adhesive tape Allergy Rash/Hives Verified 03/17/19 19:30 ceftriaxone sodium Allergy Rash/Hives Verified 03/17/19 19:30 [From Rocephin] latex Allergy Rash/Hives Verified 03/17/19 19:30 bupropion HCl AdvReac Hallucinati Verified 03/17/19 19:30 [From Wellbutrin] ons butalbital AdvReac Hallucinati Verified 03/17/19 19:30 ons Review of Systems ROS Statement: Those systems with pertinent positive or pertinent negative responses have been documented in the HPI. ROS Other: All systems not noted in ROS Statement are negative. Past Medical History Past Medical History: Asthma, Thyroid Disorder Additional Past Medical History / Comment(s): INSOMNIA; BODERLINE PERSONALITY DISORDER, back pain hx of syncope, MURMUR CHILD,BRONCHITIS,CARPAL TUNNEL,ARHTIRITS,UTI'S, MIGRAINES."herniated disc neck/back" colitis History of Any Multi-Drug Resistant Organisms: MRSA Date of last positivie culture/infection: 02/18/19 MDRO Source:: Axilla Past Surgical History: Adenoidectomy, Tonsillectomy Additional Past Surgical History / Comment(s): teeth pulled. SEVERAL AREAS ON BODY HAD i&D FROM AREAS WITH MRSA Past Anesthesia/Blood Transfusion Reactions: No Reported Reaction Additional Past Anesthesia/Blood Transfusion Reaction / Comment(s): CLAUSTERPHOBIA Past Psychological History: Anxiety, Bipolar, Depression, PTSD Smoking Status: Current every day smoker Past Alcohol Use History: Rare Past Drug Use History: Marijuana - Past Family History Mother Family Medical History: Myocardial Infarction ([place]) Additional Family Medical History / Comment(s): AT AGE 45 FROM [place] Father Additional Family Medical History / Comment(s): WHEN PT WAS 9 MONTHS OLD FROM A BRAIN ANUERYSM General Exam Limitations: no limitations General appearance: alert, in no apparent distress Head exam: Present: atraumatic, normocephalic, normal inspection Eye exam: Present: normal appearance Pupils: Present: normal accommodation ENT exam: Present: normal exam, mucous membranes moist Neck exam: Present: normal inspection, full ROM Respiratory exam: Present: normal lung sounds bilaterally Cardiovascular Exam: Present: regular rate, normal rhythm, normal heart sounds Extremities exam: Present: normal inspection, full ROM, normal capillary refill Back exam: Present: normal inspection, full ROM, tenderness, paraspinal tenderness (Paraspinal tenderness in the right thoracic region). Absent: vertebral tenderness Neurological exam: Present: alert, oriented X3 Psychiatric exam: Present: normal affect, normal mood Skin exam: Present: warm, dry, intact, normal color Course Vital Signs 03/17/19 03/17/19 19:25 20:08 Temperature 97.9 F 98.0 F Pulse Rate 80 76 Respiratory 18 16 Rate Blood Pressure 116/78 118/76 O2 Sat by Pulse 100 98 Oximetry Medical Decision Making - Medical Decision Making Patient is a 28-year-old female with chronic back pain presenting to emergency department with a chief complaint of back pain. States she's had back pain like this and this will feels very much the same. States this one was initiated after she bent over to vegetable picker her daughter. States she was in the ED last time with similar type pain and was given Toradol and a muscle relaxer. Physical examination patient does have tenderness in the right paraspinal thoracic region. No radiation the pain appears to be exacerbated with right rotation. Patient was given Toradol, Lidoderm patch and Flexeril starter pack. She was advised not to drive or operate heavy machinery when taking the medication. Patient will also get a prescription of Flexeril. No cauda equina. Return parameters were thoroughly discussed the patient was understanding and agreeable. Case discussed with physician. Disposition Clinical Impression: Strain of thoracic back region, Thoracic back pain, Mid back pain Disposition: HOME SELF-CARE Condition: Stable Instructions (If sedation given, give patient instructions): Acute Low Back Pain (ED) Additional Instructions: Take prescribed medication as directed. Do not drive or operate heavy machinery when taking the medication. Follow-up with primary care return to emergency department if symptoms worsen. Prescriptions: Cyclobenzaprine [Flexeril] 10 mg PO TID PRN #15 tab PRN Reason: Muscle Spasm Is patient prescribed a controlled substance at d/c from ED?: No Referrals: None,Stated [Primary Care Provider] - 1-2 days Time of Disposition: 19:46
[2019-03-17 20:09] VITALS: BP 118/76; PULSE 76; RESP 16; TEMP 98
== END 2019-03-17 20:08 | disposition home or self-care (01) ==
LOC: EC 19:23
DX: S29.012A Strain of muscle and tendon of back wall of thorax, initial encounter (principal); F31.9 Bipolar disorder, unspecified; F41.9 Anxiety disorder, unspecified; F43.10 Post-traumatic stress disorder, unspecified; F17.200 Nicotine dependence, unspecified, uncomplicated; Z88.1 Allergy status to other antibiotic agents; Z88.8 Allergy status to other drugs, medicaments and biological substances; Z91.040 Latex allergy status; Z91.048 Other nonmedicinal substance allergy status; Z79.3 Long term (current) use of hormonal contraceptives; Z79.899 Other long term (current) drug therapy; Z86.14 Personal history of Methicillin resistant Staphylococcus aureus infection; Z87.39 Personal history of other diseases of the musculoskeletal system and connective tissue; X50.1XXA Overexertion from prolonged static or awkward postures, initial encounter; Y93.89 Activity, other specified; Y92.009 Unspecified place in unspecified non-institutional (private) residence as the place of occurrence of the external cause
CPT/HCPCS: 99283; 96372; J1885

== ENCOUNTER 2019-03-23 15:10 | Emergency (ER) | payer OTHER ==
[2019-03-23 15:24] VITALS: BP 137/78; TEMP 98.1
--- NOTE | 2019-03-23 17:00 | ED ---
General Adult HPI - General Chief complaint: Nausea/Vomiting/Diarrhea Stated complaint: fever, vomitting Time Seen by Provider: 03/23/19 16:29 Source: patient, RN notes reviewed Mode of arrival: ambulatory Limitations: no limitations - History of Present Illness Initial comments: 28-year-old female with a past medical or history of asthma, back pain, evelyn rderline personality disorder, herniated disks in back presents to the emergency department for a chief complaint of back pain. Patient states her chronic pain is usually in her upper back. Patient states that 2 days ago she started to have pain in her lower back. patient states she wouldnt have thought anything of it and thought it was related to her normal back pain but she went to her chiropractor and was told since it is lower back it could be a urinary tract infection and sent her to the emergency department. Denies any bladder or bowel changes. Denies any dysuria. Denies any numbness or tingling in the lower extremities. Denies fevers chills. Denies difficulty walking. Denies history of IV drug abuse. Patient has no other complaints at this time including shortness of breath, chest pain, abdominal pain, nausea or vomiting, headache, or visual changes. - Related Data Home Medications Medication Instructions Recorded Confirmed Sertraline HCl [Zoloft] 100 mg PO HS 04/09/18 03/23/19 Norgestimate-Ethinyl Estradiol 1 tab PO DAILY 11/11/18 03/23/19 [Mononessa 28 Tablet] OXcarbazepine [Trileptal] 600 mg PO BID 11/11/18 03/23/19 QUEtiapine [SEROquel] 100 mg PO HS 11/11/18 03/23/19 Albuterol Inhaler [Ventolin Hfa 2 puff INHALATION RT-Q8H PRN 03/23/19 03/23/19 Inhaler] Cyclobenzaprine [Flexeril] 5 - 10 mg PO BID PRN 03/23/19 03/23/19 Allergies Allergy/AdvReac Type Severity Reaction Status Date / Time adhesive tape Allergy Rash/Hives Verified 03/23/19 15:21 ceftriaxone sodium Allergy Rash/Hives Verified 03/23/19 15:21 [From Rocephin] latex Allergy Rash/Hives Verified 03/23/19 15:21 bupropion HCl AdvReac Hallucinati Verified 03/23/19 15:21 [From Wellbutrin] ons butalbital AdvReac Hallucinati Verified 03/23/19 15:21 ons Review of Systems ROS Statement: Those systems with pertinent positive or pertinent negative responses have been documented in the HPI. ROS Other: All systems not noted in ROS Statement are negative. Past Medical History Past Medical History: Asthma, Thyroid Disorder Additional Past Medical History / Comment(s): INSOMNIA; BODERLINE PERSONALITY DISORDER, back pain hx of syncope, MURMUR CHILD,BRONCHITIS,CARPAL TUNNEL,ARHTIRITS,UTI'S, MIGRAINES."herniated disc neck/back" colitis History of Any Multi-Drug Resistant Organisms: MRSA Date of last positivie culture/infection: 02/18/19 MDRO Source:: Ax[place] Past Surgical History: Adenoidectomy, Tonsillectomy Additional Past Surgical History / Comment(s): teeth pulled. SEVERAL AREAS ON BODY HAD i&D FROM AREAS WITH MRSA Past Anesthesia/Blood Transfusion Reactions: No Reported Reaction Additional Past Anesthesia/Blood Transfusion Reaction / Comment(s): CLAUSTERPHOBIA Past Psychological History: Anxiety, Bipolar, Depression, PTSD Smoking Status: Current every day smoker Past Alcohol Use History: Rare Past Drug Use History: Marijuana - Past Family History Mother Family Medical History: Myocardial Infarction ([place]) Additional Family Medical History / Comment(s): AT AGE 45 FROM [place] Father Additional Family Medical History / Comment(s): WHEN PT WAS 9 MONTHS OLD FROM A BRAIN ANUERYSM General Exam Limitations: no limitations General appearance: alert, in no apparent distress Head exam: Present: atraumatic, normocephalic, normal inspection Eye exam: Present: normal appearance, PERRL, EOMI. Absent: scleral icterus, conjunctival injection, periorbital swelling ENT exam: Present: normal exam, mucous membranes moist Neck exam: Present: normal inspection, full ROM. Absent: tenderness, meningismus, lymphadenopathy Respiratory exam: Present: normal lung sounds bilaterally. Absent: respiratory distress, wheezes, rales, rhonchi, stridor Cardiovascular Exam: Present: regular rate, normal rhythm, normal heart sounds. Absent: systolic murmur, diastolic murmur, rubs, gallop, clicks GI/Abdominal exam: Present: soft, normal bowel sounds. Absent: distended, tenderness, guarding, rebound, rigid Back exam: Present: paraspinal tenderness (paraspinal lumbar tenderness). Absent: CVA tenderness (R), CVA tenderness (L) Neurological exam: Present: alert Course Vital Signs 03/23/19 03/23/19 15:21 17:46 Temperature 98.1 F Pulse Rate 82 72 Respiratory 18 16 Rate Blood Pressure 137/78 O2 Sat by Pulse 96 Oximetry Medical Decision Making - Medical Decision Making Vitals are stable. Patient is afebrile. Patient is ambulatory. No vomiting or nausea here in the ER. Abdominal exam is unremarkable. Urinalysis does not show any evidence of infection. Pain is likely related to patient's chronic back pain. I did recommend she monitor for any fevers and return if these do occur. This would be greater than 100.4. Patient will also return if she has any bladder or bowel changes or numbness or tingling of the lower extremities. Victor Manuel mckay eevaluated, feeling much better after Toradol. I discussed this case with attending Dr. Langley who agrees with this assessment and treatment plan. - Lab Data Lab Results 03/23/19 03/23/19 Range/Units 16:51 16:51 Urine Color Yellow Urine Appearance Cloudy H (Clear) Urine pH 6.0 (5.0-8.0) Ur Specific [place] 1.014 (1.001-1.035) Urine Protein Negative (Negative) Urine Glucose (UA) Negative (Negative) Urine Ketones Negative (Negative) Urine Blood Negative (Negative) Urine Nitrite Negative (Negative) Urine Bilirubin Negative (Negative) Urine Urobilinogen <2.0 (<2.0) mg/dL Ur Leukocyte Esterase Negative (Negative) Urine RBC <1 (0-5) /hpf Urine WBC 3 (0-5) /hpf Ur Squamous Epith Cells 20 H (0-4) /hpf Urine Bacteria Rare H (None) /hpf Urine Mucus Occasional H (None) /hpf Urine HCG, Qual Not Detected (Not Detectd) Disposition Clinical Impression: Back pain Disposition: HOME SELF-CARE Condition: Good Instructions (If sedation given, give patient instructions): Acute Low Back Pain (ED) Additional Instructions: Please do gentle stretching. Follow up with primary care in 1-2 days. If you have any worsening symptoms such as fevers, bladder or bowel changes, numbness/tingling/weakness of lower extremities return immediately to the emergency department. Is patient prescribed a controlled substance at d/c from ED?: No Referrals: Natty Finnegan MD [Primary Care Provider] - 1-2 days Time of Disposition: 17:58
[2019-03-23 17:11] LABS: Appearance,Urine Cloudy (Clear); Bacteria,Urine Rare /hpf; Bilirubin,Urine Negative (Negative); Blood,Urine Negative (Negative); Color,Urine Yellow; Glucose,Urine (UA) Negative (Negative); Ketones,Urine Negative (Negative); Leukocyte Esterase,Urine Negative (Negative); Mucus,Urine Occasional /hpf; Nitrite,Urine Negative (Negative); Protein,Urine Negative (Negative); RBC,Urine <1 /hpf (0-5); Specific Gravity,Urine 1.014 (1.001-1.035); Squamous Epithelial Cell,Urine 20 /hpf (0-4); Urobilinogen,Urine <2.0 mg/dL (<2.0); WBC,Urine 3 /hpf (0-5)
[2019-03-23] MEDS ORDERED: KETOROLAC 30 MG/ML 1 ML VIAL IM STA (17:26)
[2019-03-23 17:48] VITALS: PULSE 72; RESP 16
== END 2019-03-23 18:18 | disposition home or self-care (01) ==
LOC: EC 15:10
DX: G89.29 Other chronic pain (principal); M54.5 Low back pain; R50.9 Fever, unspecified; F31.9 Bipolar disorder, unspecified; F43.10 Post-traumatic stress disorder, unspecified; F41.9 Anxiety disorder, unspecified; F60.3 Borderline personality disorder; G47.00 Insomnia, unspecified; J45.909 Unspecified asthma, uncomplicated; F17.200 Nicotine dependence, unspecified, uncomplicated; Z79.899 Other long term (current) drug therapy; Z91.048 Other nonmedicinal substance allergy status; Z88.1 Allergy status to other antibiotic agents; Z91.040 Latex allergy status; Z88.8 Allergy status to other drugs, medicaments and biological substances; Z86.14 Personal history of Methicillin resistant Staphylococcus aureus infection
CPT/HCPCS: 81001; 81025; 99284; 96372; J1885

== ENCOUNTER 2019-04-02 16:03 | Emergency (ER) | payer OTHER ==
[2019-04-02] MEDS ORDERED: KETOROLAC 30 MG/ML 1 ML VIAL IM STA (16:48)
[2019-04-02] MEDS ORDERED: LIDOCAINE 5% PATCH TOPICAL STA (16:48)
[2019-04-02] MEDS ORDERED: CYCLOBENZAPRINE 10 MG TAB PO STA (16:49)
--- NOTE | 2019-04-02 16:53 | ED ---
Back Pain HPI - General Chief Complaint: Back Pain/Injury Stated Complaint: Painful to breath Time Seen by Provider: 04/02/19 16:41 Source: patient Limitations: no limitations - History of Present Illness Initial Comments: Patient is a 28-year-old female with history of chronic back pain presenting to emergency Department with chief complaint back pain. States her symptoms began earlier today and she was attempting to nut picker her daughter. States pain is located in the same region as always which is near the inferior angle of the left scapula. States the pain is exacerbated whenever she has left and right rotation and with abduction above 90. Denies any shoulder pain or shoulder injury. Denies any previous injuries to her back. 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 Does report taking Flexeril on the morning with minimal improvement. Denies any radiation of the pain. Denies any numbness or tingling. Denies urinary or bowel incontinence. Denies abdominal pain, chest pain, shortness of breath. - Related Data Home Medications Medication Instructions Recorded Confirmed Sertraline HCl [Zoloft] 100 mg PO HS 04/09/18 03/23/19 Norgestimate-Ethinyl Estradiol 1 tab PO DAILY 11/11/18 03/23/19 [Mononessa 28 Tablet] OXcarbazepine [Trileptal] 600 mg PO BID 11/11/18 03/23/19 QUEtiapine [SEROquel] 100 mg PO HS 11/11/18 03/23/19 Albuterol Inhaler [Ventolin Hfa 2 puff INHALATION RT-Q8H PRN 03/23/19 03/23/19 Inhaler] Cyclobenzaprine [Flexeril] 5 - 10 mg PO BID PRN 03/23/19 03/23/19 Previous Rx's Medication Instructions Recorded Lidocaine 5% Patch [Lidoderm] 1 patch TOPICAL DAILY #6 patch 04/02/19 Allergies Allergy/AdvReac Type Severity Reaction Status Date / Time adhesive tape Allergy Rash/Hives Verified 03/23/19 15:21 ceftriaxone sodium Allergy Rash/Hives Verified 03/23/19 15:21 [From Rocephin] latex Allergy Rash/Hives Verified 03/23/19 15:21 bupropion HCl AdvReac Hallucinati Verified 03/23/19 15:21 [From Wellbutrin] ons butalbital AdvReac Hallucinati Verified 03/23/19 15:21 ons Review of Systems ROS Statement: Those systems with pertinent positive or pertinent negative responses have been documented in the HPI. ROS Other: All systems not noted in ROS Statement are negative. Past Medical History Past Medical History: Asthma, Thyroid Disorder Additional Past Medical History / Comment(s): INSOMNIA; BODERLINE PERSONALITY DISORDER, back pain hx of syncope, MURMUR CHILD,BRONCHITIS,CARPAL TUNNEL,ARHTIRITS,UTI'S, MIGRAINES."herniated disc neck/back" colitis History of Any Multi-Drug Resistant Organisms: MRSA Date of last positivie culture/infection: 02/18/19 MDRO Source:: Axilla Past Surgical History: Adenoidectomy, Tonsillectomy Additional Past Surgical History / Comment(s): teeth pulled. SEVERAL AREAS ON BODY HAD i&D FROM AREAS WITH MRSA Past Anesthesia/Blood Transfusion Reactions: No Reported Reaction Additional Past Anesthesia/Blood Transfusion Reaction / Comment(s): CLAUSTERPHOBIA Past Psychological History: Anxiety, Bipolar, Depression, PTSD Smoking Status: Current every day smoker Past Alcohol Use History: Occasional, Rare Past Drug Use History: Marijuana - Past Family History Mother Family Medical History: Myocardial Infarction ([place]) Additional Family Medical History / Comment(s): AT AGE 45 FROM [place] Father Additional Family Medical History / Comment(s): WHEN PT WAS 9 MONTHS OLD FROM A BRAIN ANUERYSM General Exam Limitations: no limitations General appearance: alert, in no apparent distress, obese Head exam: Present: atraumatic, normocephalic, normal inspection Eye exam: Present: normal appearance Pupils: Present: normal accommodation ENT exam: Present: normal oropharynx Neck exam: Present: normal inspection, full ROM Respiratory exam: Present: normal lung sounds bilaterally Cardiovascular Exam: Present: regular rate, normal rhythm, normal heart sounds Extremities exam: Present: normal inspection, full ROM Back exam: Present: normal inspection, full ROM, tenderness (Tenderness near the inferior angle of the left scapula.), paraspinal tenderness. Absent: CVA tenderness (R), CVA tenderness (L) Neurological exam: Present: alert, oriented X3 Psychiatric exam: Present: normal affect, normal mood Skin exam: Present: warm, dry, intact, normal color Course Vital Signs 04/02/19 04/02/19 16:21 18:02 Temperature 98.3 F 98.0 F Pulse Rate 80 79 Respiratory 18 19 Rate Blood Pressure 114/66 118/79 O2 Sat by Pulse 100 98 Oximetry Medical Decision Making - Medical Decision Making Patient is a 28-year-old female with history of chronic back pain presenting to the emergency Department with a chief complaint of back pain. Pain started after she was time to nut picker her daughter. She has had pain in that region previously. 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 On exam patient does have tenderness at the inferior angle of the left scapula. Pain is exacerbated with palpation in the region. No numbness or tingling or any radiation the pain. No cauda equina. No chest or shortness of breath or abdominal pain. Patient was given Flexeril and Lidoderm patch and Toradol. On reevaluation patient reports improvement in symptoms and feels comfortable to go home. Patient was advised to follow-up with center specialists. Patient already has Flexeril at home. She was discharged with a Lidoderm patch. Return parameters were thoroughly discussed the patient was understanding and agreeable. Case discussed with physician. Disposition Clinical Impression: Mechanical back pain Disposition: HOME SELF-CARE Condition: Stable Instructions (If sedation given, give patient instructions): Acute Low Back Pain (ED) Additional Instructions: Take prescribed medication as directed. Please follow-up primary care. Return to emergency department if symptoms worsen. Prescriptions: Lidocaine 5% Patch [Lidoderm] 1 patch TOPICAL DAILY #6 patch Is patient prescribed a controlled substance at d/c from ED?: No Referrals: None,Stated [Primary Care Provider] - 1-2 days Time of Disposition: 17:40
[2019-04-02 18:03] VITALS: BP 118/79; PULSE 79; RESP 19; TEMP 98
== END 2019-04-02 18:03 | disposition home or self-care (01) ==
LOC: EC 16:03
DX: M54.9 Dorsalgia, unspecified (principal); J45.909 Unspecified asthma, uncomplicated; F31.9 Bipolar disorder, unspecified; F41.9 Anxiety disorder, unspecified; F43.10 Post-traumatic stress disorder, unspecified; F17.200 Nicotine dependence, unspecified, uncomplicated; Z88.1 Allergy status to other antibiotic agents; Z88.8 Allergy status to other drugs, medicaments and biological substances; Z91.040 Latex allergy status; Z91.048 Other nonmedicinal substance allergy status; Z79.3 Long term (current) use of hormonal contraceptives; Z79.899 Other long term (current) drug therapy; Z86.14 Personal history of Methicillin resistant Staphylococcus aureus infection
CPT/HCPCS: 99283; 96372; J1885

== ENCOUNTER 2019-04-13 16:43 | Emergency (ER) | payer OTHER ==
[2019-04-13 17:19] VITALS: RESP 18; TEMP 99.1
[2019-04-13] MEDS ORDERED: MORPHINE SULFATE 4 MG/ML SYRINGE IM STA (17:22)
[2019-04-13] MEDS ORDERED: LIDOCAINE 1% INJ 10MG/ML (20 ML MDV) SQ ONE (17:22)
--- NOTE | 2019-04-13 19:00 | ED ---
Skin/Abscess/FB HPI - General Chief complaint: Skin/Abscess/Foreign Body Stated complaint: abcess groin Time Seen by Provider: 04/13/19 17:03 Source: patient Mode of arrival: ambulatory Limitations: no limitations - History of Present Illness Initial comments: 28-year-old female presenting today for chief complaint of left-sided labial pain. Patient states that she recently shaved then developed left labial pain today she states it feels swollen. Patient's concerned she is an abscess. Patient denies fever or malaise constitutional symptoms. Patient denies any chills nausea vomiting, vaginal discharge dysuria urgency frequency hematuria. Patient denies any other complaints upon arrival patient appears well signs of acute distress - Related Data Home Medications Medication Instructions Recorded Confirmed Sertraline HCl [Zoloft] 100 mg PO HS 04/09/18 03/23/19 Norgestimate-Ethinyl Estradiol 1 tab PO DAILY 11/11/18 03/23/19 [Mononessa 28 Tablet] OXcarbazepine [Trileptal] 600 mg PO BID 11/11/18 03/23/19 QUEtiapine [SEROquel] 100 mg PO HS 11/11/18 03/23/19 Albuterol Inhaler [Ventolin Hfa 2 puff INHALATION RT-Q8H PRN 03/23/19 03/23/19 Inhaler] Cyclobenzaprine [Flexeril] 5 - 10 mg PO BID PRN 03/23/19 03/23/19 Previous Rx's Medication Instructions Recorded Lidocaine 5% Patch [Lidoderm] 1 patch TOPICAL DAILY #6 patch 04/02/19 Clindamycin [Cleocin] 450 mg PO Q8H 7 Days #63 capsule 04/13/19 Allergies Allergy/AdvReac Type Severity Reaction Status Date / Time adhesive tape Allergy Rash/Hives Verified 03/23/19 15:21 ceftriaxone sodium Allergy Rash/Hives Verified 03/23/19 15:21 [From Rocephin] latex Allergy Rash/Hives Verified 03/23/19 15:21 bupropion HCl AdvReac Hallucinati Verified 03/23/19 15:21 [From Wellbutrin] ons butalbital AdvReac Hallucinati Verified 03/23/19 15:21 ons Review of Systems ROS Statement: Those systems with pertinent positive or pertinent negative responses have been documented in the HPI. ROS Other: All systems not noted in ROS Statement are negative. Past Medical History Past Medical History: Asthma, Thyroid Disorder Additional Past Medical History / Comment(s): INSOMNIA; BODERLINE PERSONALITY DISORDER, back pain hx of syncope, MURMUR CHILD,BRONCHITIS,CARPAL TUNNEL,ARHTIRITS,UTI'S, MIGRAINES."herniated disc neck/back" colitis History of Any Multi-Drug Resistant Organisms: MRSA Date of last positivie culture/infection: 02/18/19 MDRO Source:: [place] Past Surgical History: Adenoidectomy, Tonsillectomy Additional Past Surgical History / Comment(s): teeth pulled. SEVERAL AREAS ON BODY HAD i&D FROM AREAS WITH MRSA Past Anesthesia/Blood Transfusion Reactions: No Reported Reaction Additional Past Anesthesia/Blood Transfusion Reaction / Comment(s): CLAUSTERPHOBIA Past Psychological History: Anxiety, Bipolar, Depression, PTSD Smoking Status: Current every day smoker Past Alcohol Use History: Occasional, Rare Past Drug Use History: Marijuana - Past Family History Mother Family Medical History: Myocardial Infarction ([place]) Additional Family Medical History / Comment(s): AT AGE 45 FROM [place] Father Additional Family Medical History / Comment(s): WHEN PT WAS 9 MONTHS OLD FROM A BRAIN ANUERYSM General Exam - General Exam Comments Initial Comments: General: The patient is awake and alert, in no distress, and does not appear acutely ill. Eye: +3 mm pupils are equal, round and reactive to light, extra-ocular movements are intact. No nystagmus. There is normal conjunctiva bilaterally. No signs of icterus. Cardiovascular: There is a regular rate and rhythm. No murmur, rub or gallop is appreciated. Respiratory: Lungs are clear to auscultation, respirations are non-labored, breath sounds are equal. No wheezes, stridor, rales, or rhonchi. Gastrointestinal: Soft, non-distended, non-tender abdomen without masses or organomegaly noted. There is no rebound or guarding present. Pelvic: no obvious internal evidence in the introitus of Bartholin gland enlargement, there is no vaginal discharge. No external obvious lesions. However there is an area of palpable induration at the 5 o'clock position of the labia major. Musculoskeletal: Normal ROM, no tenderness. Strength 5/5. Sensation intact. Radial pulses equal bilaterally 2+. Neurological: A&O x 3. CN II-XII intact grossly, There are no obvious motor or sensory deficits. Coordination appears grossly intact. Speech is normal. Skin: Skin is warm and dry and no rashes or lesions are noted. Psychiatric: Cooperative, appropriate mood & affect, normal judgment. Limitations: no limitations Course Vital Signs 04/13/19 04/13/19 17:16 19:12 Temperature 99.1 F Pulse Rate 110 H 73 Respiratory 18 18 Rate Blood Pressure 118/74 149/70 O2 Sat by Pulse 98 97 Oximetry Procedures - Incision & Drainage Consent Obtained: verbal consent Indication: abscess Site: vulva/vagina Size (cm): 2 Anesthetic Used: lidocaine 1% Amount (mLs): 2 I&D Cleaning Method: Iodine Scalpel Used: #11 Needle Aspiration Performed?: Yes Irrigation Performed?: No I&D Drainage Obtained: Pus (very small amount), Blood (mostly) Culture Obtained?: No Patient Tolerated Procedure: well, no complications Medical Decision Making - Medical Decision Making 28yo female presenting to the ER today for cc of abscess. significant induration, but no significant cellulitis. Patient has no obvious bartholin abscess from vaginal abscess. Attempted incision and drainage however there is minimal purulent drainage. More induration. My colleague Derrick attempted drainage however this was unsuccessful. At this time place patient on antibiotics have her follow up with [facility] if symptoms are increasing worsening patient develops fever or flulike symptoms she is immediately to return to the emergency department. Patient verbalizes understanding was discharged appearing well to discuss the case by attending provider Dr. Langley Disposition Clinical Impression: Abscess Disposition: HOME SELF-CARE Condition: Good Instructions (If sedation given, give patient instructions): Abscess Incision and Drainage (ED), Bartholin Cyst (ED) Additional Instructions: Please use medication as discussed. Please follow-up with family doctor in the next 2 days. Please return to emergency room if the symptoms increase or worsen or for any other concerns. Prescriptions: Clindamycin [Cleocin] 450 mg PO Q8H 7 Days #63 capsule Is patient prescribed a controlled substance at d/c from ED?: No Referrals: None,Stated [Primary Care Provider] - 1-[address] [facility]2 days Time of Disposition: 19:00
[2019-04-13 19:13] VITALS: BP 149/70; PULSE 73
== END 2019-04-13 19:12 | disposition home or self-care (01) ==
LOC: EC 16:43
DX: N76.4 Abscess of vulva (principal); J45.909 Unspecified asthma, uncomplicated; F41.9 Anxiety disorder, unspecified; F32.9 Major depressive disorder, single episode, unspecified; F43.10 Post-traumatic stress disorder, unspecified; F17.200 Nicotine dependence, unspecified, uncomplicated; Z86.14 Personal history of Methicillin resistant Staphylococcus aureus infection; Z79.3 Long term (current) use of hormonal contraceptives; Z79.899 Other long term (current) drug therapy; Z91.048 Other nonmedicinal substance allergy status; Z88.1 Allergy status to other antibiotic agents; Z91.040 Latex allergy status; Z88.8 Allergy status to other drugs, medicaments and biological substances
CPT/HCPCS: 99283; 10160; 96372; J2270; J2001

== ENCOUNTER 2019-09-21 | Emergency (ER) | payer OTHER ==
--- NOTE | 2019-09-21 19:30 | ED ---
Skin/Abscess/FB HPI - General Chief complaint: Skin/Abscess/Foreign Body Stated complaint: multiple abscesses Time Seen by Provider: 09/21/19 19:18 Source: patient, RN notes reviewed Mode of arrival: ambulatory Limitations: no limitations - History of Present Illness Initial comments: This a 28-year-old female presents emergency Department chief complaint of abscesses. Patient has recurrent infections or skin. Patient has been diagnosed with MRSA in the past. Patient denies any. Chills. Patient states someone healing at this point. Patient denies any significant drainage. Patient states her on her chin, right leg, left axilla region - Related Data Home Medications Medication Instructions Recorded Confirmed Sertraline HCl [Zoloft] 100 mg PO HS 04/09/18 03/23/19 Norgestimate-Ethinyl Estradiol 1 tab PO DAILY 11/11/18 03/23/19 [Mononessa 28 Tablet] OXcarbazepine [Trileptal] 600 mg PO BID 11/11/18 03/23/19 QUEtiapine [SEROquel] 100 mg PO HS 11/11/18 03/23/19 Albuterol Inhaler (Mhu) [Ventolin 2 puff INHALATION RT-Q8H PRN 03/23/19 03/23/19 Hfa Inhaler] Cyclobenzaprine [Flexeril] 5 - 10 mg PO BID PRN 03/23/19 03/23/19 Previous Rx's Medication Instructions Recorded Lidocaine 5% Patch [Lidoderm] 1 patch TOPICAL DAILY #6 patch 04/02/19 Clindamycin [Cleocin] 450 mg PO Q8H 7 Days #63 capsule 04/13/19 Clindamycin HCl 300 mg PO Q6HR #40 cap 09/21/19 Allergies Allergy/AdvReac Type Severity Reaction Status Date / Time adhesive tape Allergy Rash/Hives Verified 09/21/19 19:13 ceftriaxone sodium Allergy Rash/Hives Verified 09/21/19 19:13 [From Rocephin] latex Allergy Rash/Hives Verified 09/21/19 19:13 bupropion HCl AdvReac Hallucinati Verified 09/21/19 19:13 [From Wellbutrin] ons butalbital AdvReac Hallucinati Verified 09/21/19 19:13 ons Review of Systems ROS Statement: Those systems with pertinent positive or pertinent negative responses have been documented in the HPI. ROS Other: All systems not noted in ROS Statement are negative. Past Medical History Past Medical History: Asthma, Thyroid Disorder Additional Past Medical History / Comment(s): INSOMNIA; BODERLINE PERSONALITY DISORDER, back pain hx of syncope, MURMUR CHILD,BRONCHITIS,CARPAL TUNNEL,ARHTIRITS,UTI'S, MIGRAINES."herniated disc neck/back" colitis History of Any Multi-Drug Resistant Organisms: MRSA Date of last positivie culture/infection: 02/18/19 MDRO Source:: Axilla Past Surgical History: Adenoidectomy, Tonsillectomy Additional Past Surgical History / Comment(s): teeth pulled. SEVERAL AREAS ON BODY HAD i&D FROM AREAS WITH MRSA Past Anesthesia/Blood Transfusion Reactions: No Reported Reaction Additional Past Anesthesia/Blood Transfusion Reaction / Comment(s): CLAUSTERPHOBIA Past Psychological History: Anxiety, Bipolar, Depression, PTSD Smoking Status: Current every day smoker Past Alcohol Use History: Occasional, Rare Past Drug Use History: Marijuana - Past Family History Mother Family Medical History: Myocardial Infarction ([place]) Additional Family Medical History / Comment(s): AT AGE 45 FROM [place] Father Additional Family Medical History / Comment(s): WHEN PT WAS 9 MONTHS OLD FROM A BRAIN ANUERYSM General Exam Limitations: no limitations General appearance: alert, in no apparent distress Head exam: Present: atraumatic, normocephalic, normal inspection Eye exam: Present: normal appearance, PERRL, EOMI. Absent: scleral icterus, conjunctival injection, periorbital swelling ENT exam: Present: normal exam, normal oropharynx, mucous membranes moist Neck exam: Present: normal inspection, full ROM. Absent: tenderness, meningismus, lymphadenopathy Respiratory exam: Present: normal lung sounds bilaterally. Absent: respiratory distress, wheezes, rales, rhonchi, stridor Cardiovascular Exam: Present: regular rate, normal rhythm, normal heart sounds. Absent: systolic murmur, diastolic murmur, rubs, gallop, clicks Skin exam: Present: warm, dry, other (Erythematous nonfluctuant sores noted on the left side of the chin, right lower extremity and left axilla) Course Vital Signs 09/21/19 19:08 Temperature 98.3 F Pulse Rate 86 Respiratory 20 Rate Blood Pressure 135/78 O2 Sat by Pulse 98 Oximetry Medical Decision Making - Medical Decision Making Patient has multiple areas of infection concern for possible MRSA infection patient has a history. Patient has no function abscess needing I&D at this point. Patient was started on clindamycin as she states that she does not tolerate Bactrim well. Patient advised to follow-up in 2 days for recheck return for any worsening symptoms. Disposition Clinical Impression: Folliculitis, Facial cellulitis Disposition: HOME SELF-CARE Condition: Stable Instructions (If sedation given, give patient instructions): Abscess (ED) Additional Instructions: Please return to the Emergency Department if symptoms worsen or any other concerns. Prescriptions: Clindamycin HCl 300 mg PO Q6HR #40 cap Is patient prescribed a controlled substance at d/c from ED?: No Referrals: Reinaldo Donaldson MD [Primary Care Provider] - 1-2 days Time of Disposition: 19:30
== END 2019-09-21 19:50 | disposition home or self-care (01) ==
CPT/HCPCS: 99283

== ENCOUNTER 2020-06-14 12:56 | Emergency (ER) | payer OTHER ==
[2020-06-14 13:03] VITALS: PULSE 87; RESP 20; TEMP 98.3
[2020-06-14] MEDS ORDERED: LIDOCAINE 1% INJ 10MG/ML (20 ML MDV) SQ ONE (13:10)
[2020-06-14] MEDS ORDERED: CLINDAMYCIN 150 MG CAP PO STA (14:09)
--- NOTE | 2020-06-14 14:18 | ED ---
General Adult HPI - General Chief complaint: Skin/Abscess/Foreign Body Stated complaint: abscess under arm, Covid exposure Time Seen by Provider: 06/14/20 13:10 Source: patient Mode of arrival: ambulatory Limitations: no limitations - History of Present Illness Initial comments: 29-year-old female with a past history of asthma, MRSA presents to the emergency room for a chief complaint of abscess in the left axilla. Patient states she notices a couple days ago. States she has been applying warm compresses. Patient states she believes it is an abscess. States she has had MRSA in the past in a similar area. Patient denies any constitutional symptoms. Denies fevers. Denies any other complaints.Patient has no other complaints at this time including shortness of breath, chest pain, abdominal pain, nausea or vomiting, headache, or visual changes. - Related Data Home Medications Medication Instructions Recorded Confirmed Sertraline HCl [Zoloft] 100 mg PO HS 04/09/18 03/23/19 OXcarbazepine [Trileptal] 600 mg PO BID 11/11/18 03/23/19 QUEtiapine [SEROquel] 100 mg PO HS 11/11/18 03/23/19 traZODone HCL 50 mg PO HS 06/14/20 06/14/20 Previous Rx's Medication Instructions Recorded Clindamycin [Cleocin] 450 mg PO Q8H 7 Days #90 cap 06/14/20 Allergies Allergy/AdvReac Type Severity Reaction Status Date / Time adhesive tape Allergy Rash/Hives Verified 06/14/20 14:08 ceftriaxone sodium Allergy Rash/Hives Verified 06/14/20 14:08 [From Rocephin] latex Allergy Rash/Hives Verified 06/14/20 14:08 bupropion HCl AdvReac Hallucinati Verified 06/14/20 14:08 [From Wellbutrin] ons butalbital AdvReac Hallucinati Verified 06/14/20 14:08 ons Review of Systems ROS Statement: Those systems with pertinent positive or pertinent negative responses have been documented in the HPI. ROS Other: All systems not noted in ROS Statement are negative. Past Medical History Past Medical History: Asthma, Thyroid Disorder Additional Past Medical History / Comment(s): INSOMNIA; BODERLINE PERSONALITY DISORDER, back pain hx of syncope, MURMUR CHILD,BRONCHITIS,CARPAL TUNNEL,ARHTIRITS,UTI'S, MIGRAINES."herniated disc neck/back" colitis History of Any Multi-Drug Resistant Organisms: MRSA Date of last positivie culture/infection: 02/18/19 MDRO Source:: Axilla Past Surgical History: Adenoidectomy, Tonsillectomy Additional Past Surgical History / Comment(s): teeth pulled. SEVERAL AREAS ON BODY HAD i&D FROM AREAS WITH MRSA Past Anesthesia/Blood Transfusion Reactions: No Reported Reaction Additional Past Anesthesia/Blood Transfusion Reaction / Comment(s): CLAUSTERPHOBIA Past Psychological History: Anxiety, Bipolar, Depression, PTSD Smoking Status: Current every day smoker Past Alcohol Use History: Occasional, Rare Past Drug Use History: Marijuana - Past Family History Mother Family Medical History: Myocardial Infarction ([place]) Additional Family Medical History / Comment(s): AT AGE 45 FROM [place] Father Additional Family Medical History / Comment(s): WHEN PT WAS 9 MONTHS OLD FROM A BRAIN ANUERYSM General Exam Limitations: no limitations General appearance: alert, in no apparent distress Head exam: Present: atraumatic, normocephalic, normal inspection Eye exam: Present: normal appearance, PERRL, EOMI. Absent: scleral icterus, conjunctival injection, periorbital swelling ENT exam: Present: normal exam, mucous membranes moist Neck exam: Present: normal inspection. Absent: tenderness, meningismus, lymphadenopathy Respiratory exam: Present: normal lung sounds bilaterally. Absent: respiratory distress, wheezes, rales, rhonchi, stridor Cardiovascular Exam: Present: regular rate, normal rhythm, normal heart sounds. Absent: systolic murmur, diastolic murmur, rubs, gallop, clicks GI/Abdominal exam: Present: soft, normal bowel sounds. Absent: distended, tenderness, guarding, rebound, rigid Extremities exam: Present: other (Patient has a 1 x 2 cm area of induration noted to the left axilla. There is no spreading or streaking redness.) Course Vital Signs 06/14/20 12:59 Temperature 98.3 F Pulse Rate 87 Respiratory 20 Rate Blood Pressure 161/74 O2 Sat by Pulse 99 Oximetry Procedures - Incision & Drainage Consent Obtained: verbal consent Site: upper extremity Anesthetic Used: lidocaine 1% Amount (mLs): 2 I&D Cleaning Method: Alcohol Wipe Sterile Field Used?: Yes Scalpel Used: #11 I&D Drainage Obtained: Blood Patient Tolerated Procedure: well, no complications Medical Decision Making - Medical Decision Making I did attempt incision and drainage, no purulent material expelled. We will start patient on clindamycin as this will cover for MRSA as well as for a possible early cellulitis given her cephalosporin ALLERGY. Discussed continuing warm compresses. She will follow up with primary care. If symptoms worsen she will return here to the emergency room. Patient also requesting coronavirus testing given recent exposure, no symptoms, we will call her with results. Disposition Clinical Impression: Abscess Disposition: HOME SELF-CARE Condition: Good Instructions (If sedation given, give patient instructions): Abscess Incision and Drainage (ED) Additional Instructions: Please take antibiotic as directed. Apply warm compresses. Follow-up with your doctor in one to 2 days. Return to the emergency room for any worsening symptoms. Prescriptions: Clindamycin [Cleocin] 450 mg PO Q8H 7 Days #90 cap Is patient prescribed a controlled substance at d/c from ED?: No Referrals: Reinaldo Donaldson MD [Primary Care Provider] - 1-2 days Time of Disposition: 14:16
[2020-06-14 14:31] VITALS: BP 160/87
== END 2020-06-14 14:31 | disposition home or self-care (01) ==
LOC: EC 12:56
DX: L02.412 Cutaneous abscess of left axilla (principal); J45.909 Unspecified asthma, uncomplicated; Z90.09 Acquired absence of other part of head and neck; F17.200 Nicotine dependence, unspecified, uncomplicated; F12.90 Cannabis use, unspecified, uncomplicated; Z86.14 Personal history of Methicillin resistant Staphylococcus aureus infection; Z20.822 Contact with and (suspected) exposure to COVID-19; F41.9 Anxiety disorder, unspecified; F32.9 Major depressive disorder, single episode, unspecified
CPT/HCPCS: 87636; 99283; 10060; 96372; J2001

== ENCOUNTER 2020-06-30 16:44 | Emergency (ER) | payer OTHER ==
[2020-06-30 20:01] VITALS: BP 114/50; PULSE 70; RESP 22; TEMP 97.6
--- NOTE | 2020-06-30 20:04 | ED ---
General Adult HPI - General Chief complaint: Upper Respiratory Infection Stated complaint: Flu Symptoms Time Seen by Provider: 06/30/20 18:43 Source: patient Mode of arrival: ambulatory Limitations: no limitations - History of Present Illness Initial comments: 29-year-old female presents to the emergency room for a chief complaint of cough. Patient reports that she hasn't felt well for the past 2 days. States she has a cough that is productive. States she is somewhat nauseous as well, no vomiting. She has had a few episodes of diarrhea. Patient also has a sore throat and runny nose. Denies chest pain or shortness of breath. Denies abdominal pain.Patient has no other complaints at this time including shortness of breath, chest pain, abdominal pain, nausea or vomiting, headache, or visual changes. - Related Data Home Medications Medication Instructions Recorded Confirmed Sertraline HCl [Zoloft] 100 mg PO HS 04/09/18 06/14/20 OXcarbazepine [Trileptal] 600 mg PO BID 11/11/18 06/14/20 QUEtiapine [SEROquel] 100 mg PO HS 11/11/18 06/14/20 traZODone HCL 50 mg PO HS 06/14/20 06/14/20 Previous Rx's Medication Instructions Recorded Clindamycin [Cleocin] 450 mg PO Q8H 7 Days #90 cap 06/14/20 Allergies Allergy/AdvReac Type Severity Reaction Status Date / Time adhesive tape Allergy Rash/Hives Verified 06/30/20 16:51 ceftriaxone sodium Allergy Rash/Hives Verified 06/30/20 16:51 [From Rocephin] latex Allergy Rash/Hives Verified 06/30/20 16:51 bupropion HCl AdvReac Hallucinati Verified 06/30/20 16:51 [From Wellbutrin] ons butalbital AdvReac Hallucinati Verified 06/30/20 16:51 ons Review of Systems ROS Statement: Those systems with pertinent positive or pertinent negative responses have been documented in the HPI. ROS Other: All systems not noted in ROS Statement are negative. Past Medical History Past Medical History: Asthma, Thyroid Disorder Additional Past Medical History / Comment(s): INSOMNIA; BODERLINE PERSONALITY DISORDER, back pain hx of syncope, MURMUR CHILD,BRONCHITIS,CARPAL TUNNEL,ARHTIRITS,UTI'S, MIGRAINES."herniated disc neck/back" colitis History of Any Multi-Drug Resistant Organisms: MRSA Date of last positivie culture/infection: 02/18/19 MDRO Source:: Axilla Past Surgical History: Adenoidectomy, Tonsillectomy Additional Past Surgical History / Comment(s): teeth pulled. SEVERAL AREAS ON BODY HAD i&D FROM AREAS WITH MRSA Past Anesthesia/Blood Transfusion Reactions: No Reported Reaction Additional Past Anesthesia/Blood Transfusion Reaction / Comment(s): C LAUSTERPHOBIA Past Psychological History: Anxiety, Bipolar, Depression, PTSD Smoking Status: Current every day smoker Past Alcohol Use History: Occasional, Rare Past Drug Use History: Marijuana - Past Family History Mother Family Medical History: Myocardial Infarction ([place]) Additional Family Medical History / Comment(s): AT AGE 45 FROM [place] Father Additional Family Medical History / Comment(s): WHEN PT WAS 9 MONTHS OLD FROM A BRAIN ANUERYSM General Exam Limitations: no limitations General appearance: alert, in no apparent distress Head exam: Present: atraumatic, normocephalic, normal inspection Eye exam: Present: normal appearance, PERRL, EOMI. Absent: scleral icterus, conjunctival injection, periorbital swelling ENT exam: Present: normal exam, normal oropharynx (Uvula midline, no tonsillar exudates.), mucous membranes moist, TM's normal bilaterally, normal external ear exam Neck exam: Present: normal inspection, full ROM. Absent: tenderness, meningismus, lymphadenopathy Respiratory exam: Present: normal lung sounds bilaterally. Absent: respiratory distress, wheezes, rales, rhonchi, stridor Cardiovascular Exam: Present: regular rate, normal rhythm, normal heart sounds. Absent: systolic murmur, diastolic murmur, rubs, gallop, clicks GI/Abdominal exam: Present: soft, normal bowel sounds. Absent: distended, tenderness, guarding, rebound, rigid Course Vital Signs 06/30/20 06/30/20 16:52 19:56 Temperature 98.2 F 97.6 F Pulse Rate 88 70 Respiratory 18 22 Rate Blood Pressure 122/72 114/50 O2 Sat by Pulse 98 100 Oximetry Medical Decision Making - Medical Decision Making vitals are stable. Patient is well appearing. Coronavirus is negative. Chest x-ray shows no acute cardiopulmonary process. She likely has a viral upper respiratory infection. She will take [id number] cold and flu medications. She will follow-up with her doctor. She will return for any worsening symptoms. - Lab Data Lab Results 06/30/20 Range/Units 16:57 Coronavirus (PCR) Not Detected (Not Detectd) Disposition Clinical Impression: Upper respiratory infection Disposition: HOME SELF-CARE Condition: Good Instructions (If sedation given, give patient instructions): Upper Respiratory Infection (ED) Additional Instructions: please follow-up with your doctor in one to 2 days. Take [id number] cold and flu medications. Return to the emergency room for any worsening symptoms. Is patient prescribed a controlled substance at d/c from ED?: No Referrals: Reinaldo Donaldson MD [Primary Care Provider] - 1-2 days Time of Disposition: 20:43
--- NOTE | 2020-06-30 20:33 | XR ---
EXAMINATION TYPE: XR chest 2V DATE OF EXAM: 06/30/2020 COMPARISON: 07/30/2017 HISTORY: Chest pain TECHNIQUE: Frontal and lateral views of the chest are obtained. FINDINGS: There is no focal air space opacity. No evidence for pneumothorax. No pleural effusion. The cardiac silhouette size is within normal limits. The osseous structures are grossly intact. IMPRESSION: 1. No acute cardiopulmonary process.
== END 2020-06-30 20:53 | disposition home or self-care (01) ==
LOC: EC 16:44
DX: J06.9 Acute upper respiratory infection, unspecified (principal); R19.7 Diarrhea, unspecified; R11.0 Nausea; B97.89 Other viral agents as the cause of diseases classified elsewhere; J45.909 Unspecified asthma, uncomplicated; G43.909 Migraine, unspecified, not intractable, without status migrainosus; F41.9 Anxiety disorder, unspecified; F32.9 Major depressive disorder, single episode, unspecified; F17.200 Nicotine dependence, unspecified, uncomplicated; F12.90 Cannabis use, unspecified, uncomplicated; Z20.822 Contact with and (suspected) exposure to COVID-19
CPT/HCPCS: 71046; 87635; 99284

== ENCOUNTER 2020-07-24 13:32 | Emergency (ER) | payer OTHER ==
--- NOTE | 2020-07-24 14:26 | ED ---
Skin/Abscess/FB HPI - General Chief complaint: Skin/Abscess/Foreign Body Stated complaint: dizziness,weakness Time Seen by Provider: 07/24/20 14:12 Source: patient, RN notes reviewed, old records reviewed Mode of arrival: ambulatory Limitations: no limitations - History of Present Illness Initial comments: 29-year-old female patient, alert and oriented 4, presents to the emergency room with multiple small lesions in a history of MRSA. Patient states that she has had multiple abscesses in the past and had Bactrim and mupirocin provided however is out of medications at this time. Patient states that she developed an abscess on the right gluteal fold and her attempted to drain it with significant relief. Patient also has another abscess forming in her left axilla which is tender but no redness or drainage. Patient denies any fevers, nausea vomiting or diarrhea. Patient does state she smokes pack a day and also uses marijuana. Denies alcohol history. MD complaint: abscess/boil Onset/Timin -: days(s) Location: LUE (Axilla), buttocks (Gluteal fold right side) Severity scale (1-10): 7 Consistency: constant Improves with: other (Drainage) Worsens with: palpation Context: other (MRSA) Associated symptoms: denies other symptoms Treatments Prior to Arrival: attempted to drain pus at home - Related Data Home Medications Medication Instructions Recorded Confirmed Sertraline HCl [Zoloft] 100 mg PO HS 04/09/18 06/14/20 OXcarbazepine [Trileptal] 600 mg PO BID 11/11/18 06/14/20 QUEtiapine [SEROquel] 100 mg PO HS 11/11/18 06/14/20 traZODone HCL 50 mg PO HS 06/14/20 06/14/20 Previous Rx's Medication Instructions Recorded Clindamycin [Cleocin] 450 mg PO Q8H 7 Days #90 cap 06/14/20 Mupirocin Calcium [Bactroban 2% 1 applic NASAL BID 5 Days #1 gm 07/24/20 Nasal Ointment] Sulfamethox-Tmp 800-160Mg [Bactrim 1 each PO Q12HR 7 Days #14 tab 07/24/20 Ds] Allergies Allergy/AdvReac Type Severity Reaction Status Date / Time adhesive tape Allergy Rash/Hives Verified 07/24/20 13:50 ceftriaxone sodium Allergy Rash/Hives Verified 07/24/20 13:50 [From Rocephin] latex Allergy Rash/Hives Verified 07/24/20 13:50 bupropion HCl AdvReac Hallucinati Verified 07/24/20 13:50 [From Wellbutrin] ons butalbital AdvReac Hallucinati Verified 07/24/20 13:50 ons Review of Systems ROS Statement: Those systems with pertinent positive or pertinent negative responses have been documented in the HPI. ROS Other: All systems not noted in ROS Statement are negative. Past Medical History Past Medical History: Asthma, Thyroid Disorder Additional Past Medical History / Comment(s): INSOMNIA; BODERLINE PERSONALITY DISORDER, back pain hx of syncope, MURMUR CHILD,BRONCHITIS,CARPAL TUNNEL,ARHTIRITS,UTI'S, MIGRAINES."herniated disc neck/back" colitis History of Any Multi-Drug Resistant Organisms: MRSA Date of last positivie culture/infection: 02/18/19 MDRO Source:: Axilla Past Surgical History: Adenoidectomy, Tonsillectomy Additional Past Surgical History / Comment(s): teeth pulled. SEVERAL AREAS ON BODY HAD i&D FROM AREAS WITH MRSA Past Anesthesia/Blood Transfusion Reactions: No Reported Reaction Additional Past Anesthesia/Blood Transfusion Reaction / Comment(s): CLAUSTERPHOBIA Past Psychological History: Anxiety, Bipolar, Depression, PTSD Smoking Status: Current every day smoker Past Alcohol Use History: Occasional, Rare Past Drug Use History: Marijuana - Past Family History Mother Family Medical History: Myocardial Infarction ([place]) Additional Family Medical History / Comment(s): AT AGE 45 FROM [place] Father Additional Family Medical History / Comment(s): WHEN PT WAS 9 MONTHS OLD FR OM A BRAIN ANUERYSM General Exam Limitations: no limitations General appearance: alert, in no apparent distress Head exam: Present: atraumatic, normocephalic, normal inspection Eye exam: Present: normal appearance, PERRL, EOMI. Absent: scleral icterus, conjunctival injection, periorbital swelling ENT exam: Present: normal exam, normal oropharynx, mucous membranes moist Neck exam: Present: normal inspection, full ROM. Absent: tenderness, meningismus, lymphadenopathy Respiratory exam: Present: normal lung sounds bilaterally. Absent: respiratory distress, wheezes, rales, rhonchi, stridor, chest wall tenderness, accessory muscle use, decreased breath sounds Cardiovascular Exam: Present: regular rate, normal rhythm, normal heart sounds. Absent: systolic murmur, diastolic murmur, rubs, gallop, clicks GI/Abdominal exam: Present: soft, normal bowel sounds. Absent: distended, tenderness, guarding, rebound, rigid, mass, pulsatile mass, hernia Extremities exam: Present: full ROM, normal capillary refill Back exam: Present: normal inspection, full ROM. Absent: tenderness, CVA tenderness (R), CVA tenderness (L), muscle spasm, paraspinal tenderness, vertebral tenderness, rash noted Neurological exam: Present: alert, oriented X3, CN II-XII intact Psychiatric exam: Present: normal affect, normal mood Skin exam: Present: warm, dry, intact, normal color. Absent: rash Course Vital Signs 07/24/20 13:47 Temperature 98 F Pulse Rate 92 Respiratory 18 Rate Blood Pressure 108/75 O2 Sat by Pulse 96 Oximetry Medical Decision Making - Medical Decision Making Patient has been seen multiple times for abscesses and was told she had MRSA. Patient has been treated with Bactrim with success in the past. 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 Patient is afebrile denies any systemic signs of infection. The abscess noted to the right gluteal fold has been draining and there is no induration or fluctuance noted. Left axillary with a 1 cm nonfluctuant abscess that is tender to touch and not erythematous. Patient will be treated with Bactrim twice a day for 7 days and also prescribed Bactroban nasally for 5 days. Case discussed with Dr. Pérez who is agreeable Disposition Clinical Impression: Axillary abscess Disposition: HOME SELF-CARE Condition: Good Instructions (If sedation given, give patient instructions): Abscess (ED) Additional Instructions: Warm soaks to the abscess areas, take medication as prescribed. Follow-up with primary care doctor or dermatology this week. Prescriptions: Sulfamethox-Tmp 800-160Mg [Bactrim Ds] 1 each PO Q12HR 7 Days #14 tab Mupirocin Calcium [Bactroban 2% Nasal Ointment] 1 applic NASAL BID 5 Days #1 gm Is patient prescribed a controlled substance at d/c from ED?: No Referrals: Reinaldo Donaldson MD [Primary Care Provider] - 1-2 days Time of Disposition: 14:36
[2020-07-24 14:49] VITALS: BP 106/78; PULSE 18; RESP 20; TEMP 98.1
== END 2020-07-24 14:48 | disposition home or self-care (01) ==
LOC: EC 13:32
DX: L02.411 Cutaneous abscess of right axilla (principal); J45.909 Unspecified asthma, uncomplicated; F17.200 Nicotine dependence, unspecified, uncomplicated; Z91.040 Latex allergy status; Z91.09 Other allergy status, other than to drugs and biological substances; Z88.8 Allergy status to other drugs, medicaments and biological substances; Z88.1 Allergy status to other antibiotic agents; Z86.14 Personal history of Methicillin resistant Staphylococcus aureus infection
CPT/HCPCS: 99283

== ENCOUNTER 2021-01-03 16:01 | Emergency (ER) | payer OTHER ==
[2021-01-03 17:06] VITALS: BP 134/80; PULSE 87; RESP 19; TEMP 98.5
[2021-01-03] MEDS ORDERED: LIDOCAINE 1% INJ 10MG/ML (20 ML MDV) SQ ONE (20:12)
--- NOTE | 2021-01-03 22:30 | ED ---
Skin/Abscess/FB HPI - General Chief complaint: Skin/Abscess/Foreign Body Stated complaint: L leg sore Source: patient, RN notes reviewed Mode of arrival: ambulatory Limitations: no limitations - History of Present Illness Initial comments: Patient is a 30-year-old female that presents to the emergency room with a left posterior thigh abscess patient notes she does have a history of MRSA and is prone to these abscesses. She notes that it is mildly uncomfortable. She was otherwise well-appearing in no apparent distress. She notes she has tried to keep the area clean. She denied chest pain first breath headache nausea vomiting diarrhea constipation fever fatigue chills. - Related Data Home Medications Medication Instructions Recorded Confirmed Sertraline HCl [Zoloft] 100 mg PO HS 04/09/18 06/14/20 OXcarbazepine [Trileptal] 600 mg PO BID 11/11/18 06/14/20 QUEtiapine [SEROquel] 100 mg PO HS 11/11/18 06/14/20 traZODone HCL 50 mg PO HS 06/14/20 06/14/20 Previous Rx's Medication Instructions Recorded Clindamycin [Cleocin] 450 mg PO Q8H 7 Days #90 cap 06/14/20 Mupirocin Calcium [Bactroban 2% 1 applic NASAL BID 5 Days #1 gm 07/24/20 Nasal Ointment] Sulfamethox-Tmp 800-160Mg [Bactrim 1 each PO Q12HR 7 Days #14 tab 07/24/20 Ds] Sulfamethox-Tmp 800-160Mg [Bactrim 1 each PO Q12HR #20 tab 01/03/21 Ds] Allergies Allergy/AdvReac Type Severity Reaction Status Date / Time adhesive tape Allergy Rash/Hives Verified 01/03/21 17:06 ceftriaxone sodium Allergy Rash/Hives Verified 01/03/21 17:06 [From Rocephin] latex Allergy Rash/Hives Verified 01/03/21 17:06 bupropion HCl AdvReac Hallucinati Verified 01/03/21 17:06 [From Wellbutrin] ons butalbital AdvReac Hallucinati Verified 01/03/21 17:06 ons Review of Systems ROS Statement: Those systems with pertinent positive or pertinent negative responses have been documented in the HPI. ROS Other: All systems not noted in ROS Statement are negative. Past Medical History Past Medical History: Asthma, Thyroid Disorder Additional Past Medical History / Comment(s): INSOMNIA; BODERLINE PERSONALITY DISORDER, back pain hx of syncope, MURMUR CHILD,BRONCHITIS,CARPAL TUNNEL,ARHTIRITS,UTI'S, MIGRAINES."herniated disc neck/back" colitis History of Any Multi-Drug Resistant Organisms: MRSA Date of last positivie culture/infection: 02/18/19 MDRO Source:: Axilla Past Surgical History: Adenoidectomy, Tonsillectomy Additional Past Surgical History / Comment(s): teeth pulled. SEVERAL AREAS ON BODY HAD i&D FROM AREAS WITH MRSA Past Anesthesia/Blood Transfusion Reactions: No Reported Reaction Additional Past Anesthesia/Blood Transfusion Reaction / Comment(s): CLAUSTERPHOBIA Past Psychological History: Anxiety, Bipolar, Depression, PTSD Smoking Status: Current every day smoker Past Alcohol Use History: Occasional, Rare Past Drug Use History: Marijuana - Past Family History Mother Family Medical History: Myocardial Infarction ([place]) Additional Family Medical History / Comment(s): AT AGE 45 FROM [place] Father Additional Family Medical History / Comment(s): WHEN PT WAS 9 MONTHS OLD FROM A BRAIN ANUERYSM General Exam Limitations: no limitations General appearance: alert, in no apparent distress, obese Head exam: Present: atraumatic, normocephalic, normal inspection Eye exam: Present: normal appearance, PERRL, EOMI. Absent: scleral icterus, conjunctival injection, periorbital swelling ENT exam: Present: normal exam, mucous membranes moist Neck exam: Present: normal inspection Respiratory exam: Present: normal lung sounds bilaterally. Absent: respiratory distress, wheezes, rales, rhonchi, stridor Cardiovascular Exam: Present: regular rate, normal rhythm, normal heart sounds. Absent: systolic murmur, diastolic murmur, rubs, gallop, clicks GI/Abdominal exam: Present: soft, normal bowel sounds. Absent: distended, tenderness, guarding, rebound, rigid Extremities exam: Present: normal inspection, full ROM, normal capillary refill. Absent: tenderness, pedal edema, joint swelling, calf tenderness Neurological exam: Present: alert, oriented X3 Psychiatric exam: Present: normal affect, normal mood Skin exam: Present: warm, dry, intact, normal color. Absent: rash Expanded Type of lesion: Present: abscess (Posterior left thigh approximately 2 cm.) Course Vital Signs 01/03/21 17:04 Temperature 98.5 F Pulse Rate 87 Respiratory 19 Rate Blood Pressure 134/80 O2 Sat by Pulse 100 Oximetry Procedures - [place] Protocol (Time Out) Procedure Performed:: Insicion and drainage of left thigh ascess. 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 Lidocaine, aerobic wound culture ordered. Patient tolerated incision and drainage well. Small amount of pus and blood expressed from the abscess. Antibiotics sent to pharmacy. Case discussed with Dr. Toro, patient can discharge home. Disposition Clinical Impression: Abscess Disposition: HOME SELF-CARE Condition: Stable Instructions (If sedation given, give patient instructions): Abscess Incision and Drainage (ED) Additional Instructions: Please return to the Emergency Department if symptoms worsen or any other concerns. Follow-up with primary care in 1-2 days. Take antibiotics as prescribed until complete. Warm compresses to keep abscess draining. Is patient prescribed a controlled substance at d/c from ED?: No Referrals: Reinaldo Donaldson MD [Primary Care Provider] - 1-2 days Time of Disposition: 22:29
== END 2021-01-03 22:49 | disposition home or self-care (01) ==
LOC: EC 16:01
DX: L02.416 Cutaneous abscess of left lower limb (principal); E66.9 Obesity, unspecified; J45.909 Unspecified asthma, uncomplicated; F31.9 Bipolar disorder, unspecified; F41.9 Anxiety disorder, unspecified; F17.200 Nicotine dependence, unspecified, uncomplicated; F12.90 Cannabis use, unspecified, uncomplicated; Z79.899 Other long term (current) drug therapy; Z68.42 Body mass index [BMI] 45.0-49.9, adult
CPT/HCPCS: 87070; 87205; 87077; 87186; 10060; 99283; J2001

== ENCOUNTER 2021-02-21 09:00 | Emergency (ER) | payer OTHER ==
[2021-02-21 09:15] VITALS: BP 131/81; PULSE 85; RESP 18; TEMP 98.3
[2021-02-21] MEDS ORDERED: ACET/COD 300 MG/30 MG STARTER PACK 6 TAB BTL PO STA (09:50)
--- NOTE | 2021-02-21 09:51 | ED ---
ENT HPI - General Chief complaint: ENT Stated complaint: head & ear pain Time Seen by Provider: 02/21/21 09:16 Source: patient, RN notes reviewed Mode of arrival: ambulatory Limitations: no limitations - History of Present Illness Initial comments: 30-year-old female presents emergency Department chief complaint abscess left side of her scalp. Patient states started a few days she has pain rating down around her ear. Patient has no internal ear pain patient has a fistula she has a long history of MRSA, skin infections. Patient states this feels very similar. No other complaints noted. - Related Data Home Medications Medication Instructions Recorded Confirmed Sertraline HCl [Zoloft] 100 mg PO HS 04/09/18 06/14/20 OXcarbazepine [Trileptal] 600 mg PO BID 11/11/18 06/14/20 QUEtiapine [SEROquel] 100 mg PO HS 11/11/18 06/14/20 traZODone HCL 50 mg PO HS 06/14/20 06/14/20 Previous Rx's Medication Instructions Recorded Clindamycin [Cleocin] 450 mg PO Q8H 7 Days #90 cap 06/14/20 Mupirocin Calcium [Bactroban 2% 1 applic NASAL BID 5 Days #1 gm 07/24/20 Nasal Ointment] Sulfamethox-Tmp 800-160Mg [Bactrim 1 each PO Q12HR 7 Days #14 tab 07/24/20 Ds] Sulfamethox-Tmp 800-160Mg [Bactrim 1 each PO Q12HR #20 tab 01/03/21 Ds] Sulfamethox-Tmp 800-160Mg [Bactrim 1 each PO Q12HR #20 tab 02/21/21 Ds] Allergies Allergy/AdvReac Type Severity Reaction Status Date / Time adhesive tape Allergy Rash/Hives Verified 02/21/21 09:14 ceftriaxone sodium Allergy Rash/Hives Verified 02/21/21 09:14 [From Rocephin] latex Allergy Rash/Hives Verified 02/21/21 09:14 bupropion HCl AdvReac Hallucinati Verified 02/21/21 09:14 [From Wellbutrin] ons butalbital AdvReac Hallucinati Verified 02/21/21 09:14 ons Review of Systems ROS Statement: Those systems with pertinent positive or pertinent negative responses have been documented in the HPI. ROS Other: All systems not noted in ROS Statement are negative. Past Medical History Past Medical History: Asthma, Thyroid Disorder Additional Past Medical History / Comment(s): INSOMNIA; BODERLINE PERSONALITY DISORDER, back pain hx of syncope, MURMUR CHILD,BRONCHITIS,CARPAL TUNNEL,ARHTIRITS,UTI'S, MIGRAINES."herniated disc neck/back" colitis History of Any Multi-Drug Resistant Organisms: MRSA Date of last positivie culture/infection: 01/03/21 MDRO Source:: THIGH Past Surgical History: Adenoidectomy, Tonsillectomy Additional Past Surgical History / Comment(s): teeth pulled. SEVERAL AREAS ON BODY HAD i&D FROM AREAS WITH MRSA Past Anesthesia/Blood Transfusion Reactions: No Reported Reaction Additional Past Anesthesia/Blood Transfusion Reaction / Comment(s): CLAUSTERPHOBIA Past Psychological History: Anxiety, Bipolar, Depression, PTSD Smoking Status: Current every day smoker Past Alcohol Use History: Occasional, Rare Past Drug Use History: Marijuana - Past Family History Mother Family Medical History: Myocardial Infarction ([place]) Additional Family Medical History / Comment(s): AT AGE 45 FROM [place] Father Additional Family Medical History / Comment(s): WHEN PT WAS 9 MONTHS OLD FROM A BRAIN ANUERYSM General Exam Limitations: no limitations General appearance: alert, in no apparent distress Head exam: Present: atraumatic, normocephalic. Absent: normal inspection (Left sided scalp there is a small bump like structure early abscess with surrounding tenderness and erythema.) Eye exam: Present: normal appearance, PERRL, EOMI. Absent: scleral icterus, conjunctival injection, periorbital swelling ENT exam: Present: normal exam, mucous membranes moist Respiratory exam: Present: normal lung sounds bilaterally. Absent: respiratory distress, wheezes, rales, rhonchi, stridor Cardiovascular Exam: Present: regular rate, normal rhythm, normal heart sounds. Absent: systolic murmur, diastolic murmur, rubs, gallop, clicks Course Vital Signs 02/21/21 09:12 Temperature 98.3 F Pulse Rate 85 Respiratory 18 Rate Blood Pressure 131/81 O2 Sat by Pulse 99 Oximetry Medical Decision Making - Medical Decision Making Patient was started on oral antibiotics for cellulitis early abscess. Return parameters were discussed. Disposition Clinical Impression: Cellulitis of scalp, Abscess, scalp Disposition: HOME SELF-CARE Condition: Stable Instructions (If sedation given, give patient instructions): Abscess (ED) Additional Instructions: Please return to the Emergency Department if symptoms worsen or any other concerns. Prescriptions: Sulfamethox-Tmp 800-160Mg [Bactrim Ds] 1 each PO Q12HR #20 tab Is patient prescribed a controlled substance at d/c from ED?: No Referrals: Reinaldo Donaldson MD [Primary Care Provider] - 1-2 days Time of Disposition: 09:50
== END 2021-02-21 10:06 | disposition home or self-care (01) ==
LOC: EC 09:00
DX: L03.811 Cellulitis of head [any part, except face] (principal); J45.909 Unspecified asthma, uncomplicated; E07.9 Disorder of thyroid, unspecified; F41.9 Anxiety disorder, unspecified; F31.9 Bipolar disorder, unspecified; F43.12 Post-traumatic stress disorder, chronic; F17.200 Nicotine dependence, unspecified, uncomplicated; F12.90 Cannabis use, unspecified, uncomplicated; Z88.1 Allergy status to other antibiotic agents; Z91.040 Latex allergy status
CPT/HCPCS: 99282

== ENCOUNTER 2021-03-01 23:26 | Emergency (ER) | payer OTHER ==
[2021-03-01 23:32] VITALS: BP 131/79; PULSE 102; RESP 18; TEMP 98.3
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
--- NOTE | 2021-03-02 00:03 | XR ---
EXAMINATION TYPE: XR lumbar spine 2 or 3V DATE OF EXAM: 03/01/2021 COMPARISON: 11/26/2014 HISTORY: Pain. TECHNIQUE: 3 views FINDINGS: Lumbar Normal spacing and alignment. Posterior elements are intact. There is no compression fracture. Sacroi liac joints are normal. IMPRESSION: Normal lumbar spine. No change.
[2021-03-02] MEDS ORDERED: KETOROLAC 15 MG/ML 1 ML VIAL IM STA (00:56)
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
== END 2021-03-02 01:10 | disposition home or self-care (01) ==
LOC: EC 23:26
DX: M54.9 Dorsalgia, unspecified (principal); F17.200 Nicotine dependence, unspecified, uncomplicated; J45.909 Unspecified asthma, uncomplicated; Z91.09 Other allergy status, other than to drugs and biological substances; Z88.1 Allergy status to other antibiotic agents; Z91.040 Latex allergy status; Z88.8 Allergy status to other drugs, medicaments and biological substances; V43.52XA Car driver injured in collision with other type car in traffic accident, initial encounter; Y92.410 Unspecified street and highway as the place of occurrence of the external cause
CPT/HCPCS: 72070; 72100; 99284; 96372; J1885

== ENCOUNTER 2021-03-13 11:21 | Emergency (ER) | payer OTHER ==
[2021-03-13] MEDS ORDERED: ACETAMINOPHEN TAB 325 MG TAB PO STA (12:04)
--- NOTE | 2021-03-13 12:12 | ED ---
General Adult HPI - General Chief complaint: Skin/Abscess/Foreign Body Stated complaint: Left Breast issues Time Seen by Provider: 03/13/21 12:00 Source: patient, RN notes reviewed, old records reviewed Mode of arrival: ambulatory Limitations: no limitations - History of Present Illness Initial comments: 30-year-old female presents to the emergency room with complaints of left breast pain and a lump behind her nipple with some drainage that is expressible and green in color. She does have a history of multiple abscesses in the past. She does have a 3 mm lesion to the left breast that she states is from a hair follicle. Patient states that she has had this breast drainage for the past 2 years but normally clear in color. Patient states she seen her primary care doctor 2 weeks ago but did not discuss this with him at that time. She did call the office today and they told her due to staffing she could not get an appointment which is why she came to the ER today. She denies any fevers. She denies . -: year(s) (2) Location: left (breast) Severity scale (1-10): 3 Consistency: intermittent Improves with: none Worsens with: other (palpation) Associated Symptoms: other (nipple drainage and tenderness) Treatments Prior to Arrival: none - Related Data Home Medications Medication Instructions Recorded Confirmed Naproxen Sodium [Aleve] 440 mg PO DAILY PRN 02/21/21 03/13/21 Cyclobenzaprine [Flexeril] 10 mg PO TID PRN 03/13/21 03/13/21 predniSONE 50 mg PO DAILY 03/13/21 03/13/21 Previous Rx's Medication Instructions Recorded Sulfamethox-Tmp 800-160Mg [Bactrim 1 each PO Q12HR 7 Days #14 tab 03/13/21 Ds] Allergies Allergy/AdvReac Type Severity Reaction Status Date / Time adhesive tape Allergy Rash/Hives Verified 03/13/21 13:57 ceftriaxone sodium Allergy Rash/Hives Verified 03/13/21 13:57 [From Rocephin] FULL BODY latex Allergy Rash/Hives Verified 03/13/21 13:57 bupropion HCl AdvReac Hallucinati Verified 03/13/21 13:57 [From Wellbutrin] ons butalbital AdvReac Hallucinati Verified 03/13/21 13:57 ons Review of Systems ROS Statement: Those systems with pertinent positive or pertinent negative responses have been documented in the HPI. ROS Other: All systems not noted in ROS Statement are negative. Past Medical History Past Medical History: Asthma, Thyroid Disorder Additional Past Medical History / Comment(s): INSOMNIA; BODERLINE PERSONALITY DISORDER, back pain hx of syncope, MURMUR CHILD,BRONCHITIS,CARPAL TUNNEL,ARHTIRITS,UTI'S, MIGRAINES."herniated disc neck/back" colitis History of Any Multi-Drug Resistant Organisms: MRSA Date of last positivie culture/infection: 01/30/2021 MDRO Source:: head Past Surgical History: Adenoidectomy, Tonsillectomy Additional Past Surgical History / Comment(s): teeth pulled. SEVERAL AREAS ON BODY HAD i&D FROM AREAS WITH MRSA Past Anesthesia/Blood Transfusion Reactions: No Reported Reaction Additional Past Anesthesia/Blood Transfusion Reaction / Comment(s): CLAUSTERPHOBIA Past Psychological History: Anxiety, Bipolar, Depression, PTSD Smoking Status: Current every day smoker Past Alcohol Use History: Occasional, Rare Past Drug Use History: Marijuana - Past Family History Mother Family Medical History: Myocardial Infarction ([place]) Additional Family Medical History / Comment(s): AT AGE 45 FROM [place] Father Additional Family Medical History / Comment(s): WHEN PT WAS 9 MONTHS OLD FROM A BRAIN ANUERYSM General Exam Limitations: no limitations General appearance: alert, in no apparent distress Eye exam: Present: normal appearance Respiratory exam: Present: normal lung sounds bilaterally. Absent: respiratory distress, wheezes, rales, rhonchi, stridor Cardiovascular Exam: Present: tachycardia, normal heart sounds Extremities exam: Present: normal inspection, full ROM, normal capillary refill. Absent: tenderness, pedal edema, joint swelling, calf tenderness Neurological exam: Present: alert, oriented X3 Psychiatric exam: Present: normal affect, normal mood Skin exam: Present: warm, dry, other (cysts within the left breast with a 3mm nondraining lesion at left breast at 4 o'clock) Course Vital Signs 03/13/21 03/13/21 11:23 14:21 Temperature 98.1 F 98.2 F Pulse Rate 102 H 98 Respiratory 18 20 Rate Blood Pressure 116/83 120/76 O2 Sat by Pulse 96 97 Oximetry Medical Decision Making - Medical Decision Making 30-year-old female presents with complaints of left breast lump behind her nipple with some green drainage. Patient states breast drainage has been present for the past 2 years but normally clear in color. Pt is afebrile and there is no leukocytosis. Urine is negative. On physical examination there is a 3 mm lesion at 4:00 o'clock that is not draining, no errythema, no induration or fluctuance . There is expressible clear liquid coming from the left nipple. There is no erythema, induration or fluctuance noted to the surrounding areola. Ultrasound of the left breast shows nipple appearing slightly thickened with some hyperemia and associated duct ectasia. Patient has been complaining of this nipple discharge yellow in color for the past 2 years. She'll be referred to a breast surgeon Dr. Dmitriy Montenegro and given bactrim. Case discussed with Dr. Saxena. - Lab Data Result diagrams: 03/13/21 12:45 Lab Results 03/13/21 03/13/21 03/13/21 Range/Units 12:45 12:51 12:51 WBC 6.3 (3.8-10.6) k/uL RBC 4.70 (3.80-5.40) m/uL Hgb 14.2 (11.4-16.0) gm/dL Hct 43.2 (34.0-46.0) % MCV 91.7 (80.0-100.0) fL MCH 30.2 (25.0-35.0) pg MCHC 32.9 (31.0-37.0) g/dL RDW 12.5 (11.5-15.5) % Plt Count 245 (150-450) k/uL MPV 9.7 Neutrophils % 43 % Lymphocytes % 42 % Monocytes % 6 % Eosinophils % 4 % Basophils % 1 % Neutrophils # 2.7 (1.3-7.7) k/uL Lymphocytes # 2.7 (1.0-4.8) k/uL Monocytes # 0.4 (0-1.0) k/uL Eosinophils # 0.3 (0-0.7) k/uL Basophils # 0.1 (0-0.2) k/uL Urine Color Light Yellow Urine Appearance Cloudy H (Clear) Urine pH 6.0 (5.0-8.0) Ur Specific [place] 1.006 (1.001-1.035) Urine Protein Negative (Negative) Urine Glucose (UA) Negative (Negative) Urine Ketones Negative (Negative) Urine Blood Negative (Negative) Urine Nitrite Negative (Negative) Urine Bilirubin Negative (Negative) Urine Urobilinogen <2.0 (<2.0) mg/dL Ur Leukocyte Esterase Negative (Negative) Urine RBC <1 (0-5) /hpf Urine WBC 1 (0-5) /hpf Ur Squamous Epith Cells 12 H (0-4) /hpf Urine Bacteria Rare H (None) /hpf Urine Mucus Rare H (None) /hpf Urine HCG, Qual Not Detected (Not Detectd) Disposition Clinical Impression: Discharge from nipple Disposition: HOME SELF-CARE Condition: Good Instructions (If sedation given, give patient instructions): Nipple Discharge (ED) Additional Instructions: Take antibiotics as prescribed and follow-up with the breast surgeon Dr. Dmitriy Montenegro as referred, or your primary care doctor this week. Return to the emergency room with any new or concerning symptoms. Prescriptions: Sulfamethox-Tmp 800-160Mg [Bactrim Ds] 1 each PO Q12HR 7 Days #14 tab Is patient prescribed a controlled substance at d/c from ED?: No Referrals: Reinaldo Donaldson MD [Primary Care Provider] - 1-2 days Chary Graves MD [STAFF PHYSICIAN] - 1-2 days Time of Disposition: 14:01
--- NOTE | 2021-03-13 13:26 | USB ---
Reason for exam: clinical finding. US Breast Limited LT Left limited breast ultrasound including focal area of concern, retroareolar and axilla demonstrates no cystic or solid lesion seen. Scanned 12-5 o'clock. Nipple discharge, yellow x 2 years. Nipple on ultrasound appears slightly thickened with some hyperemia and associated duct ectasia. ASSESSMENT: Benign, BI-RAD 2 RECOMMENDATION: Routine screening mammogram of both breasts at age 42. (unless clinical indication to start sooner) Manage on a clinical basis with regard to yellow discharge pus, consider referral to a breast surgeon for further managment.
[2021-03-13 13:36] LABS: Basophils # (A) 0.1 k/uL (0-0.2); Basophils % (A) 1 %; Eosinophils # (A) 0.3 k/uL (0-0.7); Eosinophils % (A) 4 %; HCT 43.2 % (34.0-46.0); HGB 14.2 gm/dL (11.4-16.0); Lymphocytes # (A) 2.7 k/uL (1.0-4.8); Lymphocytes % (A) 42 %; MCH 30.2 pg (25.0-35.0); MCHC 32.9 g/dL (31.0-37.0); MCV 91.7 fL (80.0-100.0); Mean Platelet Volume 9.7; Monocytes # (A) 0.4 k/uL (0-1.0); Monocytes % (A) 6 %; Neutrophils # (A) 2.7 k/uL (1.3-7.7); Neutrophils % (A) 43 %; Platelet Count 245 k/uL (150-450); RDW 12.5 % (11.5-15.5); WBC 6.3 k/uL (3.8-10.6)
[2021-03-13 13:39] LABS: Appearance,Urine Cloudy (Clear); Bacteria,Urine Rare /hpf; Bilirubin,Urine Negative (Negative); Blood,Urine Negative (Negative); Color,Urine Light Yellow; Glucose,Urine (UA) Negative (Negative); Ketones,Urine Negative (Negative); Leukocyte Esterase,Urine Negative (Negative); Mucus,Urine Rare /hpf; Nitrite,Urine Negative (Negative); Protein,Urine Negative (Negative); RBC,Urine <1 /hpf (0-5); Specific Gravity,Urine 1.006 (1.001-1.035); Squamous Epithelial Cell,Urine 12 /hpf (0-4); Urobilinogen,Urine <2.0 mg/dL (<2.0); WBC,Urine 1 /hpf (0-5)
[2021-03-13 14:22] VITALS: BP 120/76; PULSE 98; RESP 20; TEMP 98.2
== END 2021-03-13 14:22 | disposition home or self-care (01) ==
LOC: EC 11:21
DX: N64.52 Nipple discharge (principal); J45.909 Unspecified asthma, uncomplicated; E07.9 Disorder of thyroid, unspecified; F41.9 Anxiety disorder, unspecified; F31.9 Bipolar disorder, unspecified; F43.12 Post-traumatic stress disorder, chronic; F17.200 Nicotine dependence, unspecified, uncomplicated; F12.90 Cannabis use, unspecified, uncomplicated; Z88.1 Allergy status to other antibiotic agents; Z91.040 Latex allergy status
CPT/HCPCS: 36415; 81001; 81025; 85025; 87040; 87070; 87205; 99284

== ENCOUNTER → 2021-04-07 | Outpatient (CLI) | payer OTHER ==
[2021-04-07 12:44] VITALS: BP 154/77; PULSE 90; RESP 18; TEMP 98.5
--- NOTE | 2021-04-07 13:14 | P.GSHP ---
History of Present Illness H&P Date: 04/07/21 Chief Complaint: ? breast absecss Kiera is a 30 year old white female seen in consultation for Dr. Donaldson. The patient states that after the of her 3-year-old child she continued to have nipple discharge. She did not have enough discharge to breast feed however the discharge continued bilaterally. This was not a problem until approximately 3 weeks ago when she developed a firmness under the nipple on the left side. The swelling has decreased but it remains tender. She does have any fever or chills. Discharge was fighting creamy but has decreased. She had an ultrasound of the left breast and 130 122. This revealed no cystic or solid lesions of concern. The discharge, yellow for 2 years which then became slightly thickened with a discharge and on the ultrasound the nipple appeared slightly thickened with some duct ectasia. Caffiene: all day nicotine: 1 PPD/ 15 years chocolate: occasional BCP: 2 years, not used now Family History: maternal grandmother: skin cancer, lung cancer maternal aunt: ovarian cancer 2 paternal aunts: breast, cervical or ovarian cancer told people in her family have had genetic DNA deletion Hormonal History: menarche: 11 M1, age at first : 27, breast fed: no periods regular Surgical history: all teeth removed tonsil/adenoids toe nail removal Medical History: hypothyroid asthma Bronchitis Frequent MRSA outbreaks ? Hidradenitis suprapubic tube Social History: nicotine: 1PPD/ 15 years alcohol: rare drugs: Marijuana daily for pain management/back pain - Constitutional Constitutional: Denies chills, Denies fever - EENT Eyes: denies blurred vision, denies pain Ears: deny: decreased hearing, tinnitus Ears, nose, mouth and throat: Denies headache, Denies sore throat - Breasts Breasts: bilateral: as per HPI - Cardiovascular Cardiovascular: Reports shortness of breath, Denies chest pain - Respiratory Comment: smoker Respiratory: Reports as per HPI - Gastrointestinal Gastrointestinal: Denies abdominal pain, Denies diarrhea, Denies nausea, Denies vomiting - Genitourinary (Female) Comment: UTI Genitourinary: Denies dysuria, Denies hematuria - Menstruation Menstruation: Reports period normal - Musculoskeletal Comment: back pain - Integumentary Integumentary: Denies pruritus, Denies rash - Neurological Comment: numbness in hands - Psychiatric Psychiatric: Reports anxiety, Reports depression - Endocrine Endocrine: Reports weight change - Hematologic/Lymphatic Comment: none - Allergic/Immunologic Allergic/Immunologic: Reports seasonal allergies Past Medical History Past Medical History: Asthma, Thyroid Disorder Additional Past Medical History / Comment(s): INSOMNIA; BODERLINE PERSONALITY DISORDER, back pain hx of syncope, MURMUR CHILD,BRONCHITIS,CARPAL TUNNEL,ARHTIRITS,UTI'S, MIGRAINES."herniated disc neck/back" colitis History of Any Multi-Drug Resistant Organisms: MRSA Date of last positivie culture/infection: 01/30/2021 MDRO Source:: head Past Surgical History: Adenoidectomy, Tonsillectomy Additional Past Surgical History / Comment(s): teeth pulled. SEVERAL AREAS ON BODY HAD i&D FROM AREAS WITH MRSA Past Anesthesia/Blood Transfusion Reactions: No Reported Reaction Additional Past Anesthesia/Blood Transfusion Reaction / Comment(s): CLAUSTERPHOBIA Past Psychological History: Anxiety, Bipolar, Depression, PTSD Additional Psychological History / Comment(s): pt lives with dora lakhani. pt uses a cane when up. pt stated" i have balance issues-uses a cane" Smoking Status: Current every day smoker Past Alcohol Use History: Occasional, Rare Additional Past Alcohol Use History / Comment(s): started smoking at age 14 - smokes less than 1 ppd. Past Drug Use History: Marijuana - Past Family History Mother Family Medical History: Myocardial Infarction ([place]) Additional Family Medical History / Comment(s): AT AGE 45 FROM [place] Father Additional Family Medical History / Comment(s): WHEN PT WAS 9 MONTHS OLD FROM A BRAIN ANUERYSM Medications and Allergies Home Medications Medication Instructions Recorded Confirmed Type Naproxen Sodium [Aleve] 440 mg PO DAILY PRN 02/21/21 04/07/21 History Cyclobenzaprine [Flexeril] 10 mg PO TID PRN 03/13/21 04/07/21 History Allergies Allergy/AdvReac Type Severity Reaction Status Date / Time adhesive tape Allergy Rash/Hives Verified 04/07/21 12:39 ceftriaxone sodium Allergy Rash/Hives Verified 04/07/21 12:39 [From Rocephin] FULL BODY latex Allergy Rash/Hives Verified 04/07/21 12:39 bupropion HCl AdvReac Hallucinati Verified 04/07/21 12:39 [From Wellbutrin] ons butalbital AdvReac Hallucinati Verified 04/07/21 12:39 ons Surgical - Exam Vital Signs Temp Pulse Resp BP Pulse Ox 98.5 F 90 18 154/77 99 04/07/21 12:40 04/07/21 12:40 04/07/21 12:40 04/07/21 12:40 04/07/21 12:40 BMI 50.6 - General no distress - Eyes normal ocular movement - Neck trachea midline - Respiratory normal respiratory effort, clear to auscultation - Cardiovascular Rhythm: regular Heart Sounds: normal: S1, S2 - Abdomen Abdomen: soft - Integumentary normal turgor - Neurologic no disoriented, no combative - Musculoskeletal normal gait, normal posture - Psychiatric oriented to time, oriented to person, oriented to place, speech is normal, memory intact Breast Exam: BRA: 38D inspection: right breast maller than left breast, grade 3 ptosis bilaterally, multiple punctate skin lesions over the left breast Palpation: Right breast: Positional exam fibrocystic changes no dominant masses or nodules of concern Right axilla: No adenopathy of concern Left breast: Multi-positional exam fibrocystic changes no discrete dominant masses or nodules of concern Left axilla: No adenopathy of concern Bilateral nipple discharge with palpation which is yellow and some ducts have some more creamy discharge this does not appear to be infected but may be some of bilateral milky discharge Results Ultrasound left breast reviewed personally 02-23-21 Assessment and Plan Assessment: Impression: Bilateral nipple discharge may be fibrocystic in nature may have some milky discharge with it Skin changes as noted Possible hidradenitis Smoker Family history of cancer She has seen a non destructive testing technician and was treated with Bactrim without results therefore she was hospitalized given vancomycin and developed C. diff. This was for MRSA. Plan: genetic testing dermatology stop smoking encouraged prolactin level given pre-op kit (hibicleans) no abcess needing drainage at this time CC: Dr. Donaldson
== END ==
LOC: WWCWWP 11:42
PROVIDERS: ATTEND Surgery
DX: N64.52 Nipple discharge (principal); E03.9 Hypothyroidism, unspecified; J45.909 Unspecified asthma, uncomplicated; F17.210 Nicotine dependence, cigarettes, uncomplicated; Z80.3 Family history of malignant neoplasm of breast; F41.9 Anxiety disorder, unspecified; F31.9 Bipolar disorder, unspecified; F43.10 Post-traumatic stress disorder, unspecified; Z91.048 Other nonmedicinal substance allergy status; Z91.040 Latex allergy status; Z88.1 Allergy status to other antibiotic agents; Z88.8 Allergy status to other drugs, medicaments and biological substances
CPT/HCPCS: 36415; 84146

== ENCOUNTER 2021-10-16 14:34 | Emergency (ER) | payer OTHER ==
[2021-10-16 16:17] VITALS: BP 124/67; PULSE 88; RESP 18; TEMP 98.6
--- NOTE | 2021-10-16 17:35 | ED ---
Skin/Abscess/FB HPI - General Chief complaint: Skin/Abscess/Foreign Body Stated complaint: Sore on R hip/R arm Source: patient Mode of arrival: ambulatory Limitations: no limitations - History of Present Illness Initial comments: This 30-year-old female presents with a complaint of an abscess to her right mid humeral region medially. She states that it is been present over the last several days. She states that she lanced it with a razor blade and it did drain a fair amount. There is still been some mild erythema as well as some mild pain. She denies any fevers or chills but states that she has felt exhausted at times. She does have a history of multiple previous similar incidents in the past and has been diagnosed with MRSA. She is unsure if this could be related to an insect bite but denies knowing of any insect bites. No other complaints or modifying factors. - Related Data Home Medications Medication Instructions Recorded Confirmed Naproxen Sodium [Aleve] 440 mg PO DAILY PRN 02/21/21 04/07/21 Cyclobenzaprine [Flexeril] 10 mg PO TID PRN 03/13/21 04/07/21 Previous Rx's Medication Instructions Recorded Sulfamethox-Tmp 800-160Mg [Bactrim 1 tab PO Q12HR #20 tab 10/16/21 DS 800-160 mg] Allergies Allergy/AdvReac Type Severity Reaction Status Date / Time adhesive tape Allergy Rash/Hives Verified 10/16/21 16:17 ceftriaxone sodium Allergy Rash/Hives Verified 10/16/21 16:17 [From Rocephin] FULL BODY latex Allergy Rash/Hives Verified 10/16/21 16:17 bupropion HCl AdvReac Hallucinati Verified 10/16/21 16:17 [From Wellbutrin] ons butalbital AdvReac Hallucinati Verified 10/16/21 16:17 ons Review of Systems ROS Statement: Those systems with pertinent positive or pertinent negative responses have been documented in the HPI. ROS Other: All systems not noted in ROS Statement are negative. Past Medical History Past Medical History: Asthma, Thyroid Disorder Additional Past Medical History / Comment(s): INSOMNIA; BODERLINE PERSONALITY DISORDER, back pain hx of syncope, MURMUR CHILD,BRONCHITIS,CARPAL TUNNEL,ARHTIRITS,UTI'S, MIGRAINES."herniated disc neck/back" colitis History of Any Multi-Drug Resistant Organisms: MRSA Date of last positivie culture/infection: 01/30/2021 MDRO Source:: head Past Surgical History: Adenoidectomy, Tonsillectomy Additional Past Surgical History / Comment(s): teeth pulled. SEVERAL AREAS ON BODY HAD i&D FROM AREAS WITH MRSA Past Anesthesia/Blood Transfusion Reactions: No Reported Reaction Additional Past Anesthesia/Blood Transfusion Reaction / Comment(s): CLAUSTERPHOB IA Past Psychological History: Anxiety, Bipolar, Depression, PTSD Smoking Status: Current every day smoker Past Alcohol Use History: Occasional, Rare Past Drug Use History: Marijuana - Past Family History Mother Family Medical History: Myocardial Infarction ([place]) Additional Family Medical History / Comment(s): AT AGE 45 FROM [place] Father Additional Family Medical History / Comment(s): WHEN PT WAS 9 MONTHS OLD FROM A BRAIN ANUERYSM General Exam Limitations: no limitations General appearance: alert, in no apparent distress Extremities exam: Present: normal inspection, full ROM Psychiatric exam: Present: normal affect, normal mood Skin exam: Present: rash (There is a small area of slight erythema noted to the right mid humeral region medially. There is no current drainage identified. There is no fluctuance. It is felt as though symptoms are consistent with a drained abscess.) Course Vital Signs 10/16/21 16:14 Temperature 98.6 F Pulse Rate 88 Respiratory 18 Rate Blood Pressure 124/67 O2 Sat by Pulse 99 Oximetry Medical Decision Making - Medical Decision Making The patient was seen and examined. She appears to have a skin infection. She likely drained the abscess or so. It appears as though she may benefit from antibiotic treatment. She relates that she has been on Bactrim in the past and this seemed to work well. She will be prescribed Bactrim for 10 days. Close follow-up recommended. Return parameters are discussed. Disposition Clinical Impression: Abscess Disposition: HOME SELF-CARE Condition: Good Instructions (If sedation given, give patient instructions): Abscess (ED) Additional Instructions: Please use Tylenol and/or Motrin if needed for pain or fever. Prescriptions: Sulfamethox-Tmp 800-160Mg [Bactrim DS 800-160 mg] 1 tab PO Q12HR #20 tab Is patient prescribed a controlled substance at d/c from ED?: No Referrals: Reinaldo Donaldson MD [Primary Care Provider] - 1-2 days Time of Disposition: 17:35
== END 2021-10-16 18:10 | disposition home or self-care (01) ==
LOC: EC 14:34
DX: L02.413 Cutaneous abscess of right upper limb (principal); J45.909 Unspecified asthma, uncomplicated; F17.209 Nicotine dependence, unspecified, with unspecified nicotine-induced disorders; Z91.040 Latex allergy status; Z88.8 Allergy status to other drugs, medicaments and biological substances; Z88.6 Allergy status to analgesic agent
CPT/HCPCS: 99282

== ENCOUNTER 2021-11-16 21:46 | Emergency (ER) | payer OTHER ==
[2021-11-16] MEDS ORDERED: SULFAMETHOX-TMP 800-160MG 1 EACH TAB PO STA (22:12)
[2021-11-16] MEDS ORDERED: LIDOCAINE 1% INJ 10MG/ML (20 ML MDV) SQ ONE (22:12)
[2021-11-16 22:15] VITALS: BP 133/82; PULSE 96; RESP 16; TEMP 98.6
--- NOTE | 2021-11-16 22:27 | ED ---
Skin/Abscess/FB HPI - General Chief complaint: Skin/Abscess/Foreign Body Stated complaint: Sore on L armpit Time Seen by Provider: 11/16/21 22:10 Source: patient, RN notes reviewed Mode of arrival: ambulatory Limitations: no limitations - History of Present Illness Initial comments: This is a 31 year old female who presents to the emergency department for a cyst in the left armpit. She has a PMHx of HS and MRSA infections and has these cysts very frequently. This started yesterday and tripled in size. She tried draining it at home and did get out some discharge, however she does not believe that she went deep enough. States that yesterday she also had an elevated temperature. Denies any fevers, chills, sore throat, cough, dyspnea, chest pain, palpitations, abdominal pain, nausea, vomiting, diarrhea, back pain, or headaches. MD complaint: abscess/boil Location: LUE - Related Data Home Medications Medication Instructions Recorded Confirmed Naproxen Sodium [Aleve] 440 mg PO DAILY PRN 02/21/21 04/07/21 Cyclobenzaprine [Flexeril] 10 mg PO TID PRN 03/13/21 04/07/21 Previous Rx's Medication Instructions Recorded Sulfamethox-Tmp 800-160Mg [Bactrim 1 tab PO Q12HR #20 tab 11/16/21 DS 800-160 mg] Allergies Allergy/AdvReac Type Severity Reaction Status Date / Time adhesive tape Allergy Rash/Hives Verified 11/16/21 22:15 ceftriaxone sodium Allergy Rash/Hives Verified 11/16/21 22:15 [From Rocephin] FULL BODY latex Allergy Rash/Hives Verified 11/16/21 22:15 bupropion HCl AdvReac Hallucinati Verified 11/16/21 22:15 [From Wellbutrin] ons butalbital AdvReac Hallucinati Verified 11/16/21 22:15 ons Review of Systems ROS Statement: Those systems with pertinent positive or pertinent negative responses have been documented in the HPI. ROS Other: All systems not noted in ROS Statement are negative. Past Medical History Past Medical History: Asthma, Thyroid Disorder Additional Past Medical History / Comment(s): INSOMNIA; BODERLINE PERSONALITY DISORDER, back pain hx of syncope, MURMUR CHILD,BRONCHITIS,CARPAL TUNNEL,ARHTIRITS,UTI'S, MIGRAINES."herniated disc neck/back" colitis History of Any Multi-Drug Resistant Organisms: MRSA Date of last positivie culture/infection: 01/30/2021 MDRO Source:: head Past Surgical History: Adenoidectomy, Tonsillectomy Additional Past Surgical History / Comment(s): teeth pulled. SEVERAL AREAS ON BODY HAD i&D FROM AREAS WITH MRSA Past Anesthesia/Blood Transfusion Reactions: No Reported Reaction Additional Past Anesthesia/Blood Transfusion Reaction / Comment(s): CLAUSTERPHOBIA Past Psychological History: Anxiety, Bipolar, Depression, PTSD Smoking Status: Current every day smoker Past Alcohol Use History: Occasional, Rare Past Drug Use History: Marijuana - Past Family History Mother Family Medical History: Myocardial Infarction ([place]) Additional Family Medical History / Comment(s): AT AGE 45 FROM [place] Father Additional Family Medical History / Comment(s): WHEN PT WAS 9 MONTHS OLD FROM A BRAIN ANUERYSM General Exam Limitations: no limitations General appearance: alert, in no apparent distress Head exam: Present: atraumatic, normocephalic, normal inspection Respiratory exam: Present: normal lung sounds bilaterally. Absent: respiratory distress, wheezes, rales, rhonchi, stridor Cardiovascular Exam: Present: regular rate, normal rhythm, normal heart sounds. Absent: systolic murmur, diastolic murmur, rubs, gallop, clicks Neurological exam: Present: alert, oriented X3, CN II-XII intact Psychiatric exam: Present: normal affect, normal mood Skin exam: Present: other (3cm fluctuant abscess with surrounding induration in the left axilla. Overlying erythema, increased heat, and tenderness. ) Course Vital Signs 11/16/21 22:12 Temperature 98.6 F Pulse Rate 96 Respiratory 16 Rate Blood Pressure 133/82 O2 Sat by Pulse 99 Oximetry Procedures - Incision & Drainage Consent Obtained: verbal consent Indication: abscess Site: upper extremity Size (cm): 3 Anesthetic Used: lidocaine 1% Amount (mLs): 3 I&D Cleaning Method: Alcohol Wipe Sterile Field Used?: Yes Scalpel Used: #11 Needle Aspiration Performed?: No Irrigation Performed?: Yes I&D Drainage Obtained: Pus, Blood Culture Obtained?: Yes Medical Decision Making - Medical Decision Making This is a 31 year old female who presents to the emergency department for an abscess. I&D was performed which largely produced sanguinous material with minor purulence. No packing was required. Rx for Bactrim provided to be taken for 10 days and the first dose was administered in the emergency department. Advised she continue with warm compresses and alternate with Ibuprofen and Tylenol as needed for pain relief. Return precautions reviewed in depth, the patient is instructed to return to the emergency department with any new, worsening, or concerning symptoms. Patient verbalized understanding. This case was discussed in detail with the attending ED physician. Presentation, findings, and treatment plan discussed in detail as well. Disposition Clinical Impression: Abscess of axilla, left Disposition: HOME SELF-CARE Instructions (If sedation given, give patient instructions): Abscess Incision and Drainage (ED), Abscess (ED) Additional Instructions: Return to the emergency department with any new, worsening, or concerning symptoms. Take the antibiotic as prescribed for 10 days. Continue to apply warm compresses. Alternate with Ibuprofen and Tylenol as needed for pain relief. Follow up with your primary care provider in 1-2 days. Prescriptions: Sulfamethox-Tmp 800-160Mg [Bactrim DS 800-160 mg] 1 tab PO Q12HR #20 tab Is patient prescribed a controlled substance at d/c from ED?: No Referrals: Reinaldo Donaldson MD [Primary Care Provider] - 1-2 days
[2021-11-16] MEDS ORDERED: ACET/COD 300 MG/30 MG STARTER PACK 6 TAB BTL PO STA (23:35)
[2021-11-16] MEDS ORDERED: IBUPROFEN 600 MG STARTER PACK 4 TAB BTL PO STA (23:35)
[2021-11-16] MEDS ORDERED: KETOROLAC 15 MG/ML 1 ML VIAL IM STA (23:59)
== END 2021-11-17 00:57 | disposition home or self-care (01) ==
LOC: EC 21:46
DX: L02.412 Cutaneous abscess of left axilla (principal); J45.909 Unspecified asthma, uncomplicated; E07.9 Disorder of thyroid, unspecified; F17.200 Nicotine dependence, unspecified, uncomplicated; Z91.048 Other nonmedicinal substance allergy status; Z88.1 Allergy status to other antibiotic agents; Z91.040 Latex allergy status; Z88.8 Allergy status to other drugs, medicaments and biological substances; Z88.5 Allergy status to narcotic agent
CPT/HCPCS: 87070; 87205; 99282; 10060; 96372; J1885; 87077; 87186

== ENCOUNTER 2021-12-07 03:33 | Emergency (ER) | payer OTHER ==
[2021-12-07 03:40] VITALS: TEMP 98.2
[2021-12-07] MEDS ORDERED: MORPHINE SULFATE 4 MG/ML SYRINGE IM STA (04:57)
--- NOTE | 2021-12-07 05:32 | CT ---
EXAMINATION TYPE: CT lumbar spine wo con DATE OF EXAM: 12/07/2021 COMPARISON: 09/10/2016 HISTORY: mutiple falls. low back pain CT DLP: 2866.1 mGycm Automated exposure control for dose reduction was used. Images obtained from T12 to S3 vertebra with no contrast. Normal alignment. There is anterior hypertrophic spurring at T11-12. Disc spaces are fairly normal. N o compression fracture. The posterior elements are intact. There is no lumbar paraspinal mass. There is some mild sclerosis on both sides of the sacroiliac joints. No erosions seen. IMPRESSION: No fracture. Lumbar spine is not changed compared to old exam. There is development of bilateral scle rosis at the sacroiliac joints which could be benign since the joint spaces are preserved. The possib ility of sacroiliitis is not entirely excluded.
--- NOTE | 2021-12-07 05:55 | ED ---
Fall HPI - General Chief Complaint: Fall Stated Complaint: Back Pain Time Seen by Provider: 12/07/21 03:45 Source: patient Mode of arrival: EMS - History of Present Illness Initial Comments: 41-year-old female presents emergency room with back pain. Patient reports that she had 3 falls last week which caused her to have lower lumbar back pain. She has been able to ambulate. Has been taking gabapentin and muscle relaxers at home without improvement in her symptoms. Denies saddle anesthesia. No bowel or bladder incontinence. No concern for . No changes in her bowel or bladder habits. No abnormal vaginal bleeding or discharge. No other alleviating, precipitating or modifying factors - Related Data Home Medications Medication Instructions Recorded Confirmed Naproxen Sodium [Aleve] 440 mg PO DAILY PRN 02/21/21 04/07/21 Cyclobenzaprine [Flexeril] 10 mg PO TID PRN 03/13/21 04/07/21 Previous Rx's Medication Instructions Recorded Sulfamethox-Tmp 800-160Mg [Bactrim 1 tab PO Q12HR #20 tab 11/16/21 DS 800-160 mg] HYDROcodone/APAP 7.5-325MG [[place] 1 tab PO Q6HR PRN 3 Days #12 tab 12/07/21 7.5-325] Allergies Allergy/AdvReac Type Severity Reaction Status Date / Time adhesive tape Allergy Rash/Hives Verified 11/16/21 22:15 ceftriaxone sodium Allergy Rash/Hives Verified 11/16/21 22:15 [From Rocephin] FULL BODY latex Allergy Rash/Hives Verified 11/16/21 22:15 bupropion HCl AdvReac Hallucinati Verified 11/16/21 22:15 [From Wellbutrin] ons butalbital AdvReac Hallucinati Verified 11/16/21 22:15 ons Review of Systems ROS Statement: Those systems with pertinent positive or pertinent negative responses have been documented in the HPI. ROS Other: All systems not noted in ROS Statement are negative. Past Medical History Past Medical History: Asthma, Thyroid Disorder Additional Past Medical History / Comment(s): INSOMNIA; BODERLINE PERSONALITY DISORDER, back pain hx of syncope, MURMUR CHILD,BRONCHITIS,CARPAL TUNNEL,ARHTIRITS,UTI'S, MIGRAINES."herniated disc neck/back" colitis; Degenerative Disc Disease History of Any Multi-Drug Resistant Organisms: None Reported, MRSA Date of last positivie culture/infection: 11/17/21 MDRO Source:: Left Axilla Past Surgical History: Adenoidectomy, Tonsillectomy Additional Past Surgical History / Comment(s): teeth pulled. SEVERAL AREAS ON BODY HAD i&D FROM AREAS WITH MRSA Past Anesthesia/Blood Transfusion Reactions: No Reported Reaction Additional Past Anesthesia/Blood Transfusion Reaction / Comment(s): CLAUSTERPHOBIA Past Psychological History: Anxiety, Bipolar, Depression, PTSD Smoking Status: Current every day smoker Past Alcohol Use History: Occasional, Rare Past Drug Use History: Marijuana - Past Family History Mother Family Medical History: Myocardial Infarction ([place]) Additional Family Medical History / Comment(s): AT AGE 45 FROM [place] Father Additional Family Medical History / Comment(s): WHEN PT WAS 9 MONTHS OLD FROM A BRAIN ANUERYSM General Exam Limitations: no limitations General appearance: alert, in no apparent distress Head exam: Present: atraumatic, normocephalic, normal inspection Eye exam: Present: normal appearance, PERRL, EOMI. Absent: scleral icterus, conjunctival injection, periorbital swelling ENT exam: Present: normal exam, mucous membranes moist Neck exam: Present: normal inspection. Absent: tenderness, meningismus, lymphadenopathy Respiratory exam: Present: normal lung sounds bilaterally. Absent: respiratory distress, wheezes, rales, rhonchi, stridor Cardiovascular Exam: Present: regular rate, normal rhythm, normal heart sounds. Absent: systolic murmur, diastolic murmur, rubs, gallop, clicks GI/Abdominal exam: Present: soft, normal bowel sounds. Absent: distended, tenderness, guarding, rebound, rigid Extremities exam: Present: normal inspection, full ROM, normal capillary refill. Absent: tenderness, pedal edema, joint swelling, calf tenderness Back exam: Present: paraspinal tenderness (l2-l5 paraspinal. no midline tenderness. bilateral s1 tenderness. Patient ambulatory without difficulty) Neurological exam: Present: alert, oriented X3, CN II-XII intact Psychiatric exam: Present: normal affect, normal mood Skin exam: Present: warm, dry, intact, normal color. Absent: rash Course Vital Signs 12/07/21 12/07/21 03:37 06:11 Temperature 98.2 F Pulse Rate 89 75 Respiratory 14 16 Rate Blood Pressure 126/91 112/53 O2 Sat by Pulse 100 98 Oximetry Medical Decision Making - Medical Decision Making Arrival patient was placed into room 5. Thorough history and physical exam was performed. Given morphine for pain control. Urinalysis is obtained. Does demonstrate positive nitrites however only a few bacteria. Patient has no symptoms and therefore we will await urine culture. CT of the lumbar spine is performed without acute findings. Possible sacroiliitis. Discuss results with the patient. She will be given a short course of pain medications. She does follow with Dr. Reddy. Instructed to call and ensure that she is not a pain contract. Please form compresses to the site. Limit physical activity. Return for any new or worsening symptoms. Patient has no signs of cauda equina. Patient agreeable and discharged home ambulatory in stable condition - Lab Data Lab Results 12/07/21 Range/Units 04:25 Urine Color Light Yellow Urine Appearance Clear (Clear) Urine pH 6.5 (5.0-8.0) Ur Specific [place] 1.008 (1.001-1.035) Urine Protein Negative (Negative) Urine Glucose (UA) Negative (Negative) Urine Ketones Negative (Negative) Urine Blood Negative (Negative) Urine Nitrite Positive H (Negative) Urine Bilirubin Negative (Negative) Urine Urobilinogen <2.0 (<2.0) mg/dL Ur Leukocyte Esterase Negative (Negative) Urine WBC 1 (0-5) /hpf Ur Squamous Epith Cells 2 (0-4) /hpf Urine Bacteria Few H (None) /hpf Disposition Clinical Impression: Fall, Back pain Disposition: HOME SELF-CARE Condition: Stable Instructions (If sedation given, give patient instructions): Acute Low Back Pain (ED) Additional Instructions: Please take the pain medication if you verify that you are not in a pain contract. Follow up with your neurologist. Return for any new or worsening symptoms. Prescriptions: HYDROcodone/APAP 7.5-325MG [[place] 7.5-325] 1 tab PO Q6HR PRN 3 Days #12 tab PRN Reason: Pain Is patient prescribed a controlled substance at d/c from ED?: Yes When asked, does pt state using other controlled substances?: No If prescribed controlled substance>3 days was MAPS reviewed?: Prescribed <3 Days Referrals: Reinaldo Donaldson MD [Primary Care Provider] - 1-2 days Malia Reddy MD [Medical Doctor] - 1-2 days Time of Disposition: 05:54
[2021-12-07 06:02] LABS: Appearance,Urine Clear (Clear); Bacteria,Urine Few /hpf; Bilirubin,Urine Negative (Negative); Blood,Urine Negative (Negative); Color,Urine Light Yellow; Glucose,Urine (UA) Negative (Negative); Ketones,Urine Negative (Negative); Leukocyte Esterase,Urine Negative (Negative); Nitrite,Urine Positive (Negative); PH, Urine 6.5 (5.0-8.0); Protein,Urine Negative (Negative); Specific Gravity,Urine 1.008 (1.001-1.035); Squamous Epithelial Cell,Urine 2 /hpf (0-4); Urobilinogen,Urine <2.0 mg/dL (<2.0); WBC,Urine 1 /hpf (0-5)
[2021-12-07 06:13] VITALS: BP 112/53; PULSE 75; RESP 16
== END 2021-12-07 06:13 | disposition home or self-care (01) ==
LOC: EC 03:33
DX: M54.50 Low back pain, unspecified (principal); J45.909 Unspecified asthma, uncomplicated; E07.9 Disorder of thyroid, unspecified; F41.9 Anxiety disorder, unspecified; F31.9 Bipolar disorder, unspecified; F17.200 Nicotine dependence, unspecified, uncomplicated; F12.90 Cannabis use, unspecified, uncomplicated; Z88.8 Allergy status to other drugs, medicaments and biological substances; Z91.040 Latex allergy status; Z79.899 Other long term (current) drug therapy; W19.XXXA Unspecified fall, initial encounter
CPT/HCPCS: 81001; 72131; 99284; 96372; J2270

== ENCOUNTER 2021-12-30 11:05 | Emergency (ER) | payer OTHER ==
[2021-12-30 11:32] VITALS: BP 101/63; PULSE 78; RESP 20; TEMP 98.3
[2021-12-30] MEDS ORDERED: TOBRAMYCIN 0.3% OPHTH OINT 3.5 GM TUBE RIGHT EYE STA ×2 (12:05→12:19)
--- NOTE | 2021-12-30 12:08 | ED ---
Skin/Abscess/FB HPI - General Chief complaint: Skin/Abscess/Foreign Body Stated complaint: rt eye swelling Time Seen by Provider: 12/30/21 11:20 Source: patient, RN notes reviewed Mode of arrival: ambulatory Limitations: no limitations - History of Present Illness Initial comments: 31-year-old female presents emergency department with chief complaint of stye. Patient states started last few days she's been doing cold, warm compresses. Patient states she is currently on Bactrim for MRSA sores on her body. Patient states that she has some drainage from the site. Patient states it sort of the touch no complaints no visual disturbances no headache fevers chills Neck stiffness. Denies any pain with ocular movement. - Related Data Home Medications Medication Instructions Recorded Confirmed Naproxen Sodium [Aleve] 440 mg PO DAILY PRN 02/21/21 04/07/21 Cyclobenzaprine [Flexeril] 10 mg PO TID PRN 03/13/21 04/07/21 Previous Rx's Medication Instructions Recorded Sulfamethox-Tmp 800-160Mg [Bactrim 1 tab PO Q12HR #20 tab 11/16/21 DS 800-160 mg] HYDROcodone/APAP 7.5-325MG [[place] 1 tab PO Q6HR PRN 3 Days #12 tab 12/07/21 7.5-325] Allergies Allergy/AdvReac Type Severity Reaction Status Date / Time adhesive tape Allergy Rash/Hives Verified 12/30/21 11:32 ceftriaxone sodium Allergy Rash/Hives Verified 12/30/21 11:32 [From Rocephin] FULL BODY latex Allergy Rash/Hives Verified 12/30/21 11:32 bupropion HCl AdvReac Hallucinati Verified 12/30/21 11:32 [From Wellbutrin] ons butalbital AdvReac Hallucinati Verified 12/30/21 11:32 ons Review of Systems ROS Statement: Those systems with pertinent positive or pertinent negative responses have been documented in the HPI. ROS Other: All systems not noted in ROS Statement are negative. Past Medical History Past Medical History: Asthma, Thyroid Disorder Additional Past Medical History / Comment(s): INSOMNIA; BODERLINE PERSONALITY DISORDER, back pain hx of syncope, MURMUR CHILD,BRONCHITIS,CARPAL TUNNEL,ARHTIRITS,UTI'S, MIGRAINES."herniated disc neck/back" colitis; Degenerative Disc Disease History of Any Multi-Drug Resistant Organisms: None Reported, MRSA Date of last positivie culture/infection: 11/17/21 MDRO Source:: Left Axilla Past Surgical History: Adenoidectomy, Tonsillectomy Additional Past Surgical History / Comment(s): teeth pulled. SEVERAL AREAS ON BODY HAD i&D FROM AREAS WITH MRSA Past Anesthesia/Blood Transfusion Reactions: No Reported Reaction Additional Past Anesthesia/Blood Transfusion Reaction / Comment(s): CLAUSTER PHOBIA Past Psychological History: Anxiety, Bipolar, Depression, PTSD Smoking Status: Current every day smoker Past Alcohol Use History: Occasional, Rare Past Drug Use History: Marijuana - Past Family History Mother Family Medical History: Myocardial Infarction ([place]) Additional Family Medical History / Comment(s): AT AGE 45 FROM [place] Father Additional Family Medical History / Comment(s): WHEN PT WAS 9 MONTHS OLD FROM A BRAIN ANUERYSM General Exam Limitations: no limitations General appearance: alert, in no apparent distress Head exam: Present: atraumatic, normocephalic, normal inspection Eye exam: Present: PERRL, EOMI, periorbital swelling (Right lower eyelid swelling, mild erythema). Absent: normal appearance, scleral icterus, conjunctival injection ENT exam: Present: normal exam, normal oropharynx, mucous membranes moist Neck exam: Present: normal inspection, full ROM. Absent: tenderness, meningismus, lymphadenopathy Respiratory exam: Present: normal lung sounds bilaterally. Absent: respiratory distress, wheezes, rales, rhonchi, stridor Cardiovascular Exam: Present: regular rate, normal rhythm, normal heart sounds. Absent: systolic murmur, diastolic murmur, rubs, gallop, clicks Course Vital Signs 12/30/21 11:27 Temperature 98.3 F Pulse Rate 78 Respiratory 20 Rate Blood Pressure 101/63 O2 Sat by Pulse 99 Oximetry Medical Decision Making - Medical Decision Making Patient has right lower eyelid stye warm compresses will be continued, Tobrex eyedrops patient is currently on oral antibiotics for possible MRSA. Patient will be discharged in stable condition she has no ocular Disposition Clinical Impression: Hordeolum externum right lower eyelid Disposition: HOME SELF-CARE Condition: Stable Instructions (If sedation given, give patient instructions): Shanae (ED) Additional Instructions: Appointment every 4 hours as directed. Please return to the Emergency Department if symptoms worsen or any other concerns. Is patient prescribed a controlled substance at d/c from ED?: No Referrals: Reinaldo Donaldson MD [Primary Care Provider] - 1-2 days Time of Disposition: 12:06
== END 2021-12-30 12:44 | disposition home or self-care (01) ==
LOC: EC 11:05
DX: H00.012 Hordeolum externum right lower eyelid (principal); J45.909 Unspecified asthma, uncomplicated; E07.9 Disorder of thyroid, unspecified; F41.9 Anxiety disorder, unspecified; F32.A Depression, unspecified; F17.200 Nicotine dependence, unspecified, uncomplicated; F12.90 Cannabis use, unspecified, uncomplicated; Z79.899 Other long term (current) drug therapy; Z91.041 Radiographic dye allergy status; Z91.040 Latex allergy status; Z88.1 Allergy status to other antibiotic agents; Z88.5 Allergy status to narcotic agent; Z88.8 Allergy status to other drugs, medicaments and biological substances
CPT/HCPCS: 99283

== ENCOUNTER 2023-01-11 17:19 | Emergency (ER) | payer OTHER ==
--- NOTE | 2023-01-11 17:36 | ED ---
General Adult HPI - General Source: patient, RN notes reviewed <Melba Montes De Oca - Last Filed: 01/11/23 17:34> <Micah Ross - Last Filed: 01/11/23 22:19> - General Stated complaint: MRSA in L Thigh Time Seen by Provider: 01/11/23 17:34 - History of Present Illness Initial comments: 32-year-old female presents emergency department chief complaint of an abscess on posterior left leg. She states that this been there for 2 days. She states that she has taken 3 doses of Bactrim thus far. She does have a history of MRSA. She does admit to fever. (Melba Montes De Oca) 32 old female with a past medical history significant for MRSA presenting to the ED with a chief complaint of abscess. Patient states for the past few weeks has had some pain to the back of her leg. Once her PCP and was found to have an abscess on the back of her leg and was placed on Bactrim 3 days ago. This was not incised and drained. States that she has been taking Bactrim as prescribed however seems to be worsening possibly presentation to the ED for further evaluation. Associated chills no fever. No other complaints. Tetanus status up-to-date. (Micah Ross) - Related Data Home Medications Medication Instructions Recorded Confirmed Naproxen Sodium [Aleve] 440 mg PO DAILY PRN 02/21/21 04/07/21 Cyclobenzaprine [Flexeril] 10 mg PO TID PRN 03/13/21 04/07/21 Previous Rx's Medication Instructions Recorded Sulfamethox-Tmp 800-160Mg [Bactrim 1 tab PO Q12HR #20 tab 11/16/21 DS 800-160 mg] HYDROcodone/APAP 7.5-325MG [[place] 1 tab PO Q6HR PRN 3 Days #12 tab 12/07/21 7.5-325] Cephalexin [Keflex] 500 mg PO Q6HR 7 Days #28 cap 01/11/23 Allergies Allergy/AdvReac Type Severity Reaction Status Date / Time adhesive tape Allergy Rash/Hives Verified 12/30/21 11:32 ceftriaxone sodium Allergy Rash/Hives Verified 12/30/21 11:32 [From Rocephin] FULL BODY latex Allergy Rash/Hives Verified 12/30/21 11:32 bupropion HCl AdvReac Hallucinati Verified 12/30/21 11:32 [From Wellbutrin] ons butalbital AdvReac Hallucinati Verified 12/30/21 11:32 ons Review of Systems ROS Other: All systems not noted in ROS Statement are negative. <Melba Montes De Oca - Last Filed: 01/11/23 17:34> ROS Other: All systems not noted in ROS Statement are negative. <Micah Ross - Last Filed: 01/11/23 22:19> ROS Statement: Those systems with pertinent positive or pertinent negative responses have been documented in the HPI. Past Medical History Past Medical History: Asthma, Thyroid Disorder Additional Past Medical History / Comment(s): INSOMNIA; BODERLINE PERSONALITY DISORDER, back pain hx of syncope, MURMUR CHILD,BRONCHITIS,CARPAL TUNNEL,ARHTIRITS,UTI'S, MIGRAINES."herniated disc neck/back" colitis; Degenerative Disc Disease History of Any Multi-Drug Resistant Organisms: None Reported, MRSA Date of last positivie culture/infection: 11/17/21 MDRO Source:: Left Axilla Past Surgical History: Adenoidectomy, Tonsillectomy Additional Past Surgical History / Comment(s): teeth pulled. SEVERAL AREAS ON BODY HAD i&D FROM AREAS WITH MRSA Past Anesthesia/Blood Transfusion Reactions: No Reported Reaction Additional Past Anesthesia/Blood Transfusion Reaction / Comment(s): CLAUSTERPHOBIA Past Psychological History: Anxiety, Bipolar, Depression, PTSD Smoking Status: Current every day smoker Past Alcohol Use History: Occasional, Rare Past Drug Use History: Marijuana - Past Family History Mother Family Medical History: Myocardial Infarction ([place]) Additional Family Medical History / Comment(s): AT AGE 45 FROM [place] Father Additional Family Medical History / Comment(s): WHEN PT WAS 9 MONTHS OLD FROM A BRAIN ANUERYSM <Melba Montes De Oca - Last Filed: 01/11/23 17:34> General Exam <Melba Montes De Oca - Last Filed: 01/11/23 17:34> General appearance: alert, in no apparent distress Eye exam: Present: normal appearance Neck exam: Present: normal inspection Respiratory exam: Present: normal lung sounds bilaterally Cardiovascular Exam: Present: regular rate, normal rhythm GI/Abdominal exam: Present: soft Extremities exam: Present: other (Abscess with approximately 3 x 3 area of induration on the posterior left thigh. With surrounding warmth, erythema and tenderness palpation.) Back exam: Present: normal inspection Neurological exam: Present: alert, oriented X3 Skin exam: Present: warm, dry <Micah Ross - Last Filed: 01/11/23 22:19> - General Exam Comments Initial Comments: Visual Physical Exam Vital signs reviewed General: Well-appearing, nontoxic, no acute distress. Head: Normocephalic, atraumatic Eyes: PERRLA, EOMI ENT: Airway patent Chest: Nonlabored breathing Skin: No visual rash, normal skin tone Neuro: Alert and oriented 3 Musculoskeletal: No gross abnormalities (Melba Montes De Oca) Course Vital Signs 01/11/23 17:33 Temperature 98.4 F Pulse Rate 107 H Respiratory 20 Rate Blood Pressure 136/80 O2 Sat by Pulse 97 Oximetry Procedures - Incision & Drainage Site: lower extremity Size (cm): 3 Anesthetic Used: lidocaine 2%, with epi Amount (mLs): 7 I&D Cleaning Method: Chloroprep Sterile Field Used?: Yes Scalpel Used: #11 Ultrasound used: No Needle Aspiration Performed?: No Irrigation Performed?: Yes I&D Drainage Obtained: Pus, Blood Loculation Noted: probing needed to break Packing: Iodoform Culture Obtained?: Yes Patient Tolerated Procedure: well, no complications <Micah Ross - Last Filed: 01/11/23 22:19> Medical Decision Making <Melba Montes De Oca - Last Filed: 01/11/23 17:34> <Micah Ross - Last Filed: 01/11/23 22:19> - Medical Decision Making Quick note preformed by Mleba Montes De Oca PA-C (Melba Montes De Oca) Was pt. sent in by a medical professional or institution ([facility] Mason, HOSTING ENGINEER, urgent care, hospital, or fci...) When possible be specific @ -No Did you speak to anyone other than the patient for history (EMS, parent, family, police, friend...)? What history was obtained from this source @ -No Did you review nursing and triage notes (agree or disagree)? Why? @ -I reviewed and agree with nursing and triage notes Were old charts reviewed (outside hosp., previous admission, EMS record, old EKG, old radiological studies, urgent care reports/EKG's, fci records)? Report findings @ -No old charts were reviewed Differential Diagnosis (chest pain, altered mental status, abdominal pain women, abdominal pain men, vaginal bleeding, weakness, fever, dyspnea, syncope, headache, dizziness, GI bleed, back pain, seizure, CVA, palpatations, mental health, musculoskeletal)? @ -Differential Fever: Pneumonia, viral URI, endocarditis, myocarditis, pericarditis, otitis, sinusitis, peritonsillar Abscess, retropharyngeal Abscess, epiglottitis, peritonitis, appendicitis, Tracy cystitis, diverticulitis, hepatitis, colitis, UTI, PID, TOA, pyelonephritis, prostatitis, epididymitis, meningitis, encephalitis, pulmonary embolism, CVA, thyroid storm, pancreatitis, adrenal crisis, cavernous sinus thrombosis, this is not meant to be an all-inclusive list. EKG interpreted by me (3pts min.). @ -None X-rays interpreted by me (1pt min.). @ -None done CT interpreted by me (1pt min.). @ -None done U/S interpreted by me (1pt. min.). @ -None done What testing was considered but not performed or refused? (CT, X-rays, U/S, labs)? Why? @ -None What meds were considered but not given or refused? Why? @ -None Did you discuss the management of the patient with other professionals (professionals i.e. , PA, HOSTING ENGINEER, lab, RT, psych nurse, social media community manager, assistant store manager trainee, teacher, complaint evaluation officer, rn case management)? Give summary @ -No Was smoking cessation discussed for >3mins.? @ -No Was critical care preformed (if so, how long)? @ -No Were there social determinants of health that impacted care today? How? (Homelessness, low income, unemployed, alcoholism, drug addiction, transportati on, low edu. Level, literacy, decrease access to med. care, fdc, rehab)? @ -No Was there de-escalation of care discussed even if they declined (Discuss DNR or withdrawal of care, Hospice)? DNR status @ -No What co-morbidities impacted this encounter? (DM, HTN, Smoking, COPD, CAD, Cancer, CVA, ARF, Chemo, Hep., AIDS, mental health diagnosis, sleep apnea, morbid obesity)? @ -None Was patient admitted / discharged? Hospital course, mention meds given and route, prescriptions, significant lab abnormalities, going to OR and other pertinent info. @ -Discharge 32-year-old female presenting to the ED with a chief complaint of abscess to her left posterior thigh. This was incised and drained. Culture obtained. With history of MRSA, patient was offered observation stay however patient at this time declined. At this time vital signs stable afebrile. Added prescription of Keflex. Advised to take in addition to her Bactrim. Discharged home in stable condition. Discussed strict return precautions with patient who verbalizes agreement. Undiagnosed new problem with uncertain prognosis? @ -No Drug Therapy requiring intensive monitoring for toxicity (Heparin, Nitro, Insulin, Cardizem)? @ -No Were any procedures done? @ -No Diagnosis/symptom? @ -Abscess, left posterior thigh Acute, or Chronic, or Acute on Chronic? @ -Acute Uncomplicated (without systemic symptoms) or Complicated (systemic symptoms)? @ -Uncomplicated Side effects of treatment? @ -No Exacerbation, Progression, or Severe Exacerbation? @ -No Poses a threat to life or bodily function? How? (Chest pain, [place], [place], pneumonia, PE, COPD, DKA, ARF, appy, cholecystitis, CVA, Diverticulitis, Homicidal, Suicidal, threat to staff... and all critical care pts) @ -No (Micah Ross) Disposition <Melba Montes De Oca - Last Filed: 01/11/23 17:34> Is patient prescribed a controlled substance at d/c from ED?: No Time of Disposition: 22:19 <Micah Ross - Last Filed: 01/11/23 22:19> Clinical Impression: Abscess Disposition: HOME SELF-CARE Condition: Good Instructions (If sedation given, give patient instructions): Abscess Incision and Drainage (ED) Additional Instructions: Please return to the Emergency Department if symptoms worsen or any other concerns. Please follow-up with your primary care provider for wound recheck/wound packing. Prescriptions: Cephalexin [Keflex] 500 mg PO Q6HR 7 Days #28 cap Referrals: Reinaldo Donaldson [Primary Care Provider] - 1-2 days
[2023-01-11 17:52] VITALS: RESP 20; TEMP 98.4
[2023-01-11] MEDS ORDERED: VANCOMYCIN IV PER PHARMACY 1 EACH MISC MISCELLANE PRN (21:07)
[2023-01-11] MEDS ORDERED: LIDOCAINE 2%-EPI 1:100,000 20 ML VIAL SQ STA (21:14)
[2023-01-11] MEDS ORDERED: VANCOMYCIN 2,000 MG in SODIUM CHLORIDE 0.9% 500 ML 500 ML IVPB SCH (21:30)
[2023-01-11] MEDS ORDERED: CEPHALEXIN 500MG STARTER PACK 4 CAP BTL PO STA (22:19)
[2023-01-11 22:57] VITALS: BP 114/75; PULSE 94
[2023-01-12] MEDS ORDERED: VANCOMYCIN 2,000 MG in SODIUM CHLORIDE 0.9% 500 ML 500 ML IVPB SCH (11:00)
== END 2023-01-11 22:37 | disposition home or self-care (01) ==
LOC: EC 17:19
DX: L02.416 Cutaneous abscess of left lower limb (principal); J45.909 Unspecified asthma, uncomplicated; F17.200 Nicotine dependence, unspecified, uncomplicated; F12.90 Cannabis use, unspecified, uncomplicated; Z86.59 Personal history of other mental and behavioral disorders; Z91.040 Latex allergy status; Z88.8 Allergy status to other drugs, medicaments and biological substances; Z88.1 Allergy status to other antibiotic agents; Z91.09 Other allergy status, other than to drugs and biological substances
CPT/HCPCS: 10060; 87070; 87077; 87186; 87205; 99282

== ENCOUNTER 2023-01-13 17:18 | Emergency (ER) | payer OTHER ==
--- NOTE | 2023-01-13 17:45 | ED ---
General Adult HPI - General Source: patient Mode of arrival: ambulatory Limitations: no limitations <Miriam Iraheta - Last Filed: 01/13/23 17:45> <Heaven Kan - Last Filed: 01/13/23 20:56> - General Chief complaint: Recheck/Abnormal Lab/Rx Stated complaint: vomiting-revisit Time Seen by Provider: 01/13/23 17:44 - History of Present Illness Initial comments: 32-year-old female presenting with chief complaint of worsening infection to the left thigh. Patient was here recently and had an abscess incised and drained. She states that she has been experiencing worsening redness swelling and pain. She admits to nausea and vomiting. She is currently on Bactrim and Keflex. (Miriam Iraheta) Patient is a 32-year-old female with a history of MRSA presents to the emergency room with complaints of worsening abscess. Patient had an abscess I&D 2 days ago. Was started on Bactrim and Keflex. She states that the areas gotten more red. It continues to drain. She has been using warm compresses and sitz baths with minimal improvement. She denies nausea vomiting or fever. (Heaven Kan) - Related Data Home Medications Medication Instructions Recorded Confirmed Naproxen Sodium [Aleve] 440 mg PO DAILY PRN 02/21/21 04/07/21 Cyclobenzaprine [Flexeril] 10 mg PO TID PRN 03/13/21 04/07/21 Previous Rx's Medication Instructions Recorded Sulfamethox-Tmp 800-160Mg [Bactrim 1 tab PO Q12HR #20 tab 11/16/21 DS 800-160 mg] HYDROcodone/APAP 7.5-325MG [[place] 1 tab PO Q6HR PRN 3 Days #12 tab 12/07/21 7.5-325] Cephalexin [Keflex] 500 mg PO Q6HR 7 Days #28 cap 01/11/23 Allergies Allergy/AdvReac Type Severity Reaction Status Date / Time adhesive tape Allergy Rash/Hives Verified 01/13/23 17:35 ceftriaxone sodium Allergy Rash/Hives Verified 01/13/23 17:35 [From Rocephin] FULL BODY latex Allergy Rash/Hives Verified 01/13/23 17:35 bupropion HCl AdvReac Hallucinati Verified 01/13/23 17:35 [From Wellbutrin] ons butalbital AdvReac Hallucinati Verified 01/13/23 17:35 ons Review of Systems ROS Other: All systems not noted in ROS Statement are negative. <Miriam Iraheta - Last Filed: 01/13/23 17:45> ROS Other: All systems not noted in ROS Statement are negative. <Heaven Kan - Last Filed: 01/13/23 20:56> ROS Statement: Those systems with pertinent positive or pertinent negative responses have been documented in the HPI. Past Medical History Past Medical History: Asthma, Thyroid Disorder Additional Past Medical History / Comment(s): INSOMNIA; BODERLINE PERSONALITY DISORDER, back pain hx of syncope, MURMUR CHILD,BRONCHITIS,CARPAL TUNNEL,ARHTIRITS,UTI'S, MIGRAINES."herniated disc neck/back" colitis; Degenerative Disc Disease History of Any Multi-Drug Resistant Organisms: None Reported, MRSA Date of last positivie culture/infection: 11/17/21 MDRO Source:: Left Axilla Past Surgical History: Adenoidectomy, Tonsillectomy Additional Past Surgical History / Comment(s): teeth pulled. SEVERAL AREAS ON BODY HAD i&D FROM AREAS WITH MRSA Past Anesthesia/Blood Transfusion Reactions: No Reported Reaction Additional Past Anesthesia/Blood Transfusion Reaction / Comment(s): CLAUSTERPHOBIA Past Psychological History: Anxiety, Bipolar, Depression, PTSD Smoking Status: Current every day smoker Past Alcohol Use History: Occasional, Rare Past Drug Use History: Marijuana - Past Family History Mother Family Medical History: Myocardial Infarction ([place]) Additional Family Medical History / Comment(s): AT AGE 45 FROM [place] Father Additional Family Medical History / Comment(s): WHEN PT WAS 9 MONTHS OLD FROM A BRAIN ANUERYSM <Miriam Iraheta - Last Filed: 01/13/23 17:45> General Exam Limitations: no limitations <Miriam Iraheta - Last Filed: 01/13/23 17:45> Limitations: no limitations General appearance: alert Head exam: Present: atraumatic Eye exam: Present: normal appearance ENT exam: Present: normal exam Cardiovascular Exam: Present: tachycardia Extremities exam: Present: full ROM. Absent: other (4cm area of induration, erythema and warmth with surrounding erythema that extends about 6cm. minima purulent drainage. abscess still open) Back exam: Present: full ROM Neurological exam: Present: alert, oriented X3, CN II-XII intact Psychiatric exam: Present: normal affect, normal mood Skin exam: Present: warm (abscess posterior left upper leg with surrounding eryt rock ) <Heaven Kan - Last Filed: 01/13/23 20:56> - General Exam Comments Initial Comments: Visual Physical Exam Vital signs reviewed General: Well-appearing, nontoxic, no acute distress. Head: Normocephalic, atraumatic Eyes: PERRLA, EOMI ENT: Airway patent Chest: Nonlabored breathing Skin: No visual rash, normal skin tone Neuro: Alert and oriented 3 Musculoskeletal: No gross abnormalities (Miriam Iraheta) Course <Heaven Kan - Last Filed: 01/13/23 20:56> Vital Signs 01/13/23 01/13/23 17:30 20:36 Temperature 98.7 F 98.2 F Pulse Rate 108 H 70 Respiratory 18 18 Rate Blood Pressure 131/90 121/77 O2 Sat by Pulse 96 98 Oximetry - Reevaluation(s) Reevaluation #1: 01/13/231956 Wound was repacked by myself. There are no new loculations to I&D at this time. We will continue to use warm compresses and antibiotics and give this at this time. The erythematous area was outlined in the emergency room and the wound was re-bandaged. I discussed signs return to the emergency room. Discussed following up in 2 days to have the wound reevaluated. She understands she is to return earlier if she starts to develop fevers while on antibiotics or significa ntly worsening redness. Discussed patient's workup and evaluation with today. (Heaven Kan) Medical Decision Making - Lab Data Result diagrams: 01/13/23 17:46 01/13/23 17:46 <Heaven Kan - Last Filed: 01/13/23 20:56> - Medical Decision Making Was pt. sent in by a medical professional or institution (, PA, HAT SIZER, urgent care, hospital, or longterm...) When possible be specific @ -[No] Did you speak to anyone other than the patient for history (EMS, parent, family, police, friend...)? What history was obtained from this source @ -[No] Did you review nursing and triage notes (agree or disagree)? Why? @ -[I reviewed and agree with nursing and triage notes] Were old charts reviewed (outside hosp., previous admission, EMS record, old EKG, old radiological studies, urgent care reports/EKG's, longterm records)? Report findings @ -Yes old charts were reviewed Differential Diagnosis (chest pain, altered mental status, abdominal pain women, abdominal pain men, vaginal bleeding, weakness, fever, dyspnea, syncope, headache, dizziness, GI bleed, back pain, seizure, CVA, palpatations, mental health, musculoskeletal)? @ -Abscess of the left leg, cellulitis EKG interpreted by me (3pts min.). @ -[As above] X-rays interpreted by me (1pt min.). @ -[None done] CT interpreted by me (1pt min.). @ -[None done] U/S interpreted by me (1pt. min.). @ -[None done] What testing was considered but not performed or refused? (CT, X-rays, U/S, labs)? Why? @ -[None] What meds were considered but not given or refused? Why? @ -[None] Did you discuss the management of the patient with other professionals (professionals i.e. , PA, HAT SIZER, lab, RT, psych nurse, group social worker, meat grading machine operator, teacher, special weapons and tactics officer, child support case officer)? Give summary @ -[No] Was smoking cessation discussed for >3mins.? @ -[No] Was critical care preformed (if so, how long)? @ -[No] Were there social determinants of health that impacted care today? How? (Homelessness, low income, unemployed, alcoholism, drug addiction, transportation, low edu. Level, literacy, decrease access to med. care, correction, rehab)? @ -[No] Was there de-escalation of care discussed even if they declined (Discuss DNR or withdrawal of care, Hospice)? DNR status @ -[No] What co-morbidities impacted this encounter? (DM, HTN, Smoking, COPD, CAD, Cancer, CVA, ARF, Chemo, Hep., AIDS, mental health diagnosis, sleep apnea, morbid obesity)? @ -[None] Was patient admitted / discharged? Hospital course, mention meds given and route, prescriptions, significant lab abnormalities, going to OR and other pertinent info. @ -Patient is stable to follow up as an outpatient. May continue the Keflex and Bactrim and warm compresses. Is to follow-up in 2 days to have the wound reevaluated and rechecked patient was seen signs return to the emergency room. Does not require hospitalization at this time. Undiagnosed new problem with uncertain prognosis? @ -[No] Drug Therapy requiring intensive monitoring for toxicity (Heparin, Nitro, Insulin, Cardizem)? @ -[No] Were any procedures done? @ -[No] Diagnosis/symptom? @ -[Abscess of the posterior left upper leg Acute, or Chronic, or Acute on Chronic? @ -[Acute Uncomplicated (without systemic symptoms) or Complicated (systemic symptoms)? @ -[default] Side effects of treatment? @ -[No] Exacerbation, Progression, or Severe Exacerbation? @ -[Exacerbation Poses a threat to life or bodily function? How? (Chest pain, USA, ME, pneumonia, PE, COPD, DKA, ARF, appy, cholecystitis, CVA, Diverticulitis, Homicidal, Suicidal, threat to staff... and all critical care pts) @ -[No] (Heaven Kan) - Lab Data Lab Results 01/13/23 01/13/23 01/13/23 Range/Units 17:46 17:46 17:46 WBC 8.3 (3.8-10.6) k/uL RBC 4.58 (3.80-5.40) m/uL Hgb 13.9 (11.4-16.0) gm/dL Hct 41.5 (34.0-46.0) % MCV 90.6 (80.0-100.0) fL MCH 30.4 (25.0-35.0) pg MCHC 33.5 (31.0-37.0) g/dL RDW 12.0 (11.5-15.5) % Plt Count 236 (150-450) k/uL MPV 9.0 Neutrophils % 54 % Lymphocytes % 33 % Monocytes % 6 % Eosinophils % 3 % Basophils % 1 % Neutrophils # 4.4 (1.3-7.7) k/uL Lymphocytes # 2.7 (1.0-4.8) k/uL Monocytes # 0.5 (0-1.0) k/uL Eosinophils # 0.3 (0-0.7) k/uL Basophils # 0.1 (0-0.2) k/uL Sodium 137 (137-145) mmol/L Potassium 4.6 (3.5-5.1) mmol/L Chloride 105 (98-107) mmol/L Carbon Dioxide 22 (22-30) mmol/L Anion Gap 10 mmol/L BUN 12 (7-17) mg/dL Creatinine 0.65 (0.52-1.04) mg/dL Est GFR (CKD-EPI)AfAm >90 (>60 ml/min/1.73 sqM) Est GFR (CKD-EPI)NonAf >90 (>60 ml/min/1.73 sqM) Glucose 83 (74-99) mg/dL Plasma Lactic Acid Eliu 0.8 (0.7-2.0) mmol/L Calcium 9.2 (8.4-10.2) mg/dL Total Bilirubin 0.5 (0.2-1.3) mg/dL AST 22 (14-36) U/L ALT 24 (4-34) U/L Alkaline Phosphatase 43 (38-126) U/L Total Protein 6.9 (6.3-8.2) g/dL Albumin 4.3 (3.5-5.0) g/dL Disposition <Miriam Iraheta - Last Filed: 01/13/23 17:45> Is patient prescribed a controlled substance at d/c from ED?: No When asked, does pt state using other controlled substances?: No Time of Disposition: 20:17 <Heaven Kan - Last Filed: 01/13/23 20:56> Clinical Impression: Abscess of leg, left Disposition: HOME SELF-CARE Condition: Fair Instructions (If sedation given, give patient instructions): Abscess Incision and Drainage (ED), Abscess (ED) Additional Instructions: APPLY WARM COMPRESSES FREQUENTLY DO SITZ BATHS RETURN IF THE REDNESS SPREADS FURTHER, DEVELOPMENT OF FEVERS, OR NEW CONCERNING SYMPTOMS HAVE THE ABSCESS RECHECKED IN 2 DAYS Referrals: Reinaldo Donaldson [Primary Care Provider] - 1-2 days
[2023-01-13 17:52] VITALS: RESP 18
[2023-01-13 18:35] LABS: Basophils # (A) 0.1 k/uL (0-0.2); Basophils % (A) 1 %; Eosinophils # (A) 0.3 k/uL (0-0.7); Eosinophils % (A) 3 %; HCT 41.5 % (34.0-46.0); HGB 13.9 gm/dL (11.4-16.0); Lymphocytes # (A) 2.7 k/uL (1.0-4.8); Lymphocytes % (A) 33 %; MCH 30.4 pg (25.0-35.0); MCHC 33.5 g/dL (31.0-37.0); MCV 90.6 fL (80.0-100.0); Monocytes # (A) 0.5 k/uL (0-1.0); Monocytes % (A) 6 %; Neutrophils # (A) 4.4 k/uL (1.3-7.7); Neutrophils % (A) 54 %; Platelet Count 236 k/uL (150-450); RBC 4.58 m/uL (3.80-5.40); WBC 8.3 k/uL (3.8-10.6)
[2023-01-13 19:33] LABS: ALT 24 U/L (4-34); AST 22 U/L (14-36); African American GFR (CKD) >90 (>60 ml/min/1.73 sqM); Albumin 4.3 g/dL (3.5-5.0); Alkaline Phosphatase 43 U/L (38-126); Anion Gap 10 mmol/L; Blood Urea Nitrogen 12 mg/dL (7-17); Calcium 9.2 mg/dL (8.4-10.2); Carbon Dioxide 22 mmol/L (22-30); Chloride 105 mmol/L (98-107); Glucose 83 mg/dL (74-99); Non-African American GFR(CKD) >90 (>60 ml/min/1.73 sqM); Potassium 4.6 mmol/L (3.5-5.1); Sodium 137 mmol/L (137-145); Total Bilirubin 0.5 mg/dL (0.2-1.3); Total Protein 6.9 g/dL (6.3-8.2)
[2023-01-13 20:52] VITALS: BP 121/77; PULSE 70; TEMP 98.2
== END 2023-01-13 20:38 | disposition home or self-care (01) ==
LOC: EC 17:18
DX: L02.416 Cutaneous abscess of left lower limb (principal); J45.909 Unspecified asthma, uncomplicated; F17.200 Nicotine dependence, unspecified, uncomplicated; F12.90 Cannabis use, unspecified, uncomplicated; Z86.59 Personal history of other mental and behavioral disorders; Z91.09 Other allergy status, other than to drugs and biological substances; Z91.040 Latex allergy status; Z88.8 Allergy status to other drugs, medicaments and biological substances; Z88.1 Allergy status to other antibiotic agents
CPT/HCPCS: 36415; 80053; 83605; 85025; 99284

== ENCOUNTER 2023-01-16 16:40 | Inpatient (IN) | payer OTHER ==
--- NOTE | 2023-01-16 17:37 | ED ---
General Adult HPI - General Chief complaint: Skin/Abscess/Foreign Body Stated complaint: L Thigh MRSA,sent by pcp Time Seen by Provider: 01/16/23 17:36 Source: patient Mode of arrival: ambulatory Limitations: no limitations - History of Present Illness Initial comments: 32-year-old female with a PMH significant for MRSA presenting to the ED with a chief complaint of skin problem. Patient seen by myself on 01/11/23. She had an abscess to her posterior thigh which I performed an incision and drainage on. Cultures were obtained. Patient was already on Bactrim. Discharged home with Keflex. At this time patient was offered observation however patient wanted to go home. Returns again 2 days ago and had this reevaluated. Looks stable at that time and was discharged however was at her PCPs office today and her PCP noted increasing erythema and induration and advised her to present to the ED for further evaluation. He reports increasing pain of the area and is now starting to have pain of the middle portion of her thigh and groin. Denies f karina but did note some chills. No chest or shortness of breath. No other complaints. - Related Data Home Medications Medication Instructions Recorded Confirmed Naproxen Sodium [Aleve] 440 mg PO DAILY PRN 02/21/21 04/07/21 Cyclobenzaprine [Flexeril] 10 mg PO TID PRN 03/13/21 04/07/21 Previous Rx's Medication Instructions Recorded Sulfamethox-Tmp 800-160Mg [Bactrim 1 tab PO Q12HR #20 tab 11/16/21 DS 800-160 mg] HYDROcodone/APAP 7.5-325MG [[place] 1 tab PO Q6HR PRN 3 Days #12 tab 12/07/21 7.5-325] Cephalexin [Keflex] 500 mg PO Q6HR 7 Days #28 cap 01/11/23 Allergies Allergy/AdvReac Type Severity Reaction Status Date / Time adhesive tape Allergy Rash/Hives Verified 01/13/23 17:35 ceftriaxone sodium Allergy Rash/Hives Verified 01/13/23 17:35 [From Rocephin] FULL BODY latex Allergy Rash/Hives Verified 01/13/23 17:35 bupropion HCl AdvReac Hallucinati Verified 01/13/23 17:35 [From Wellbutrin] ons butalbital AdvReac Hallucinati Verified 01/13/23 17:35 ons Review of Systems ROS Statement: Those systems with pertinent positive or pertinent negative responses have been documented in the HPI. ROS Other: All systems not noted in ROS Statement are negative. Past Medical History Past Medical History: Asthma, Thyroid Disorder Additional Past Medical History / Comment(s): INSOMNIA; BODERLINE PERSONALITY DISORDER, back pain hx of syncope, MURMUR CHILD,BRONCHITIS,CARPAL TUNNEL,ARHTIRITS,UTI'S, MIGRAINES."herniated disc neck/back" colitis; Degenerative Disc Disease History of Any Multi-Drug Resistant Organisms: None Reported, MRSA Date of last positivie culture/infection: 11/17/21 MDRO Source:: Left Axilla Past Surgical History: Adenoidectomy, Tonsillectomy Additional Past Surgical History / Comment(s): teeth pulled. SEVERAL AREAS ON BODY HAD i&D FROM AREAS WITH MRSA Past Anesthesia/Blood Transfusion Reactions: No Reported Reaction Additional Past Anesthesia/Blood Transfusion Reaction / Comment(s): CLAUSTERPHOBIA Past Psychological History: Anxiety, Bipolar, Depression, PTSD Smoking Status: Current every day smoker Past Alcohol Use History: Occasional, Rare Past Drug Use History: Marijuana - Past Family History Mother Family Medical History: Myocardial Infarction ([place]) Additional Family Medical History / Comment(s): AT AGE 45 FROM [place] Father Additional Family Medical History / Comment(s): WHEN PT WAS 9 MONTHS OLD FROM A BRAIN ANUERYSM General Exam Limitations: no limitations General appearance: alert, in no apparent distress Eye exam: Present: normal appearance Neck exam: Present: normal inspection Respiratory exam: Present: normal lung sounds bilaterally Cardiovascular Exam: Present: regular rate, normal rhythm Extremities exam: Present: other (Treatment and sensation equal and intact of bilateral lower extremities. Left posterior thigh has warmth erythema and induration. Area of induration increased since prior visit. At prior visit patient did not have erythema of her medial thigh.) Back exam: Present: normal inspection Neurological exam: Present: alert, oriented X3 Skin exam: Present: warm, dry Course Vital Signs 01/16/23 16:41 Temperature 98.2 F Pulse Rate 89 Respiratory 16 Rate Blood Pressure 140/85 O2 Sat by Pulse 100 Oximetry Medical Decision Making - Medical Decision Making Was pt. sent in by a medical professional or institution (, PA, CONSTRUCTION SECRETARY, urgent care, hospital, or prison...) When possible be specific @ -Patient sent in by her primary care office. Did you speak to anyone other than the patient for history (EMS, parent, family, police, friend...)? What history was obtained from this source @ -No Did you review nursing and triage notes (agree or disagree)? Why? @ -I reviewed and agree with nursing and triage notes Were old charts reviewed (outside hosp., previous admission, EMS record, old EKG, old radiological studies, urgent care reports/EKG's, prison records)? Report findings @ -No old charts were reviewed Differential Diagnosis (chest pain, altered mental status, abdominal pain women, abdominal pain men, vaginal bleeding, weakness, fever, dyspnea, syncope, headache, dizziness, GI bleed, back pain, seizure, CVA, palpatations, mental health, musculoskeletal)? @ -Differential Musculoskeletal Muscular strain, contusion, ligament sprain, fracture, arthritis, septic arth ritis, bursitis, cellulitis, muscle spasm, nerve compression, DVT, arterial occlusion, herpes zoster, electrolyte abnormality, tumor.... This is not meant to be in all inclusive list EKG interpreted by me (3pts min.). @ -None X-rays interpreted by me (1pt min.). @ -None done CT interpreted by me (1pt min.). @ -None done U/S interpreted by me (1pt. min.). @ -None done What testing was considered but not performed or refused? (CT, X-rays, U/S, labs)? Why? @ -None What meds were considered but not given or refused? Why? @ -None Did you discuss the management of the patient with other professionals (professionals i.e. , PA, CONSTRUCTION SECRETARY, lab, RT, psych nurse, social work faculty member, fluoroscope operator, teacher, third officer, pillowcase cutter)? Give summary @ -Case discussed with [facility], who accepts admission. Was smoking cessation discussed for >3mins.? @ -No Was critical care preformed (if so, how long)? @ -No Were there social determinants of health that impacted care today? How? (Homelessness, low income, unemployed, alcoholism, drug addiction, transportati on, low edu. Level, literacy, decrease access to med. care, prison, rehab)? @ -No Was there de-escalation of care discussed even if they declined (Discuss DNR or withdrawal of care, Hospice)? DNR status @ -No What co-morbidities impacted this encounter? (DM, HTN, Smoking, COPD, CAD, Cancer, CVA, ARF, Chemo, Hep., AIDS, mental health diagnosis, sleep apnea, morbid obesity)? @ -None Was patient admitted / discharged? Hospital course, mention meds given and route, prescriptions, significant lab abnormalities, going to OR and other pertinent info. @ -Admission 32-year-old female with a past medical history significant for MRSA presenting to the ED with worsening erythema, induration, and pain. Patient initially seen here on the first of this month. Had incision and drainage performed. Was offered observation stay due to exam findings and history of MRSA however at this time patient declined. Patient was then placed on Keflex in addition to the Bactrim she was already taking. Upon reevaluation at her PCPs office, appeared worse today and advised to present to the ED for further evaluation. Cultures were obtained on the first. This was reviewed and cultures grew methicillin resistant staph aureus. Patient will be admitted to observation with consult to infectious disease. She started on vancomycin in the ED. Undiagnosed new problem with uncertain prognosis? @ -No Drug Therapy requiring intensive monitoring for toxicity (Heparin, Nitro, Insulin, Cardizem)? @ -No Were any procedures done? @ -No Diagnosis/symptom? @ -MRSA Acute, or Chronic, or Acute on Chronic? @ -Acute Uncomplicated (without systemic symptoms) or Complicated (systemic symptoms)? @ -Complicated Side effects of treatment? @ -No Exacerbation, Progression, or Severe Exacerbation? @ -No Poses a threat to life or bodily function? How? (Chest pain, [place], [place], pneumonia, PE, COPD, DKA, ARF, appy, cholecystitis, CVA, Diverticulitis, Homicidal, Suicidal, threat to staff... and all critical care pts) @ -Possibly - Lab Data Result diagrams: 01/16/23 18:39 01/16/23 18:39 Lab Results 01/16/23 01/16/23 Range/Units 18:39 18:39 WBC 7.1 (3.8-10.6) k/uL RBC 4.26 (3.80-5.40) m/uL Hgb 13.1 (11.4-16.0) gm/dL Hct 38.5 (34.0-46.0) % MCV 90.5 (80.0-100.0) fL MCH 30.8 (25.0-35.0) pg MCHC 34.0 (31.0-37.0) g/dL RDW 12.0 (11.5-15.5) % Plt Count 270 (150-450) k/uL MPV 8.6 Neutrophils % 42 % Lymphocytes % 47 % Monocytes % 4 % Eosinophils % 3 % Basophils % 1 % Neutrophils # 3.0 (1.3-7.7) k/uL Lymphocytes # 3.3 (1.0-4.8) k/uL Monocytes # 0.3 (0-1.0) k/uL Eosinophils # 0.2 (0-0.7) k/uL Basophils # 0.1 (0-0.2) k/uL Sodium 138 (137-145) mmol/L Potassium 3.8 (3.5-5.1) mmol/L Chloride 105 (98-107) mmol/L Carbon Dioxide 25 (22-30) mmol/L Anion Gap 8 mmol/L BUN 9 (7-17) mg/dL Creatinine 0.70 (0.52-1.04) mg/dL Est GFR (CKD-EPI)AfAm >90 (>60 ml/min/1.73 sqM) Est GFR (CKD-EPI)NonAf >90 (>60 ml/min/1.73 sqM) Glucose 98 (74-99) mg/dL Calcium 9.2 (8.4-10.2) mg/dL Total Bilirubin 0.3 (0.2-1.3) mg/dL AST 19 (14-36) U/L ALT 23 (4-34) U/L Alkaline Phosphatase 44 (38-126) U/L Total Protein 6.5 (6.3-8.2) g/dL Albumin 3.9 (3.5-5.0) g/dL Disposition Clinical Impression: MRSA (methicillin resistant staph aureus) culture positive, Failure of outpatient treatment, Cellulitis Disposition: ADMITTED IP TO THIS HOSP Condition: Good Referrals: Reinaldo Donaldson [Primary Care Provider] - 1-2 days Time of Disposition: 16:45
[2023-01-16 18:58] LABS: Basophils # (A) 0.1 k/uL (0-0.2); Basophils % (A) 1 %; Eosinophils # (A) 0.2 k/uL (0-0.7); Eosinophils % (A) 3 %; HCT 38.5 % (34.0-46.0); HGB 13.1 gm/dL (11.4-16.0); Lymphocytes # (A) 3.3 k/uL (1.0-4.8); Lymphocytes % (A) 47 %; MCH 30.8 pg (25.0-35.0); MCV 90.5 fL (80.0-100.0); Mean Platelet Volume 8.6; Monocytes # (A) 0.3 k/uL (0-1.0); Monocytes % (A) 4 %; Neutrophils % (A) 42 %; Platelet Count 270 k/uL (150-450); RBC 4.26 m/uL (3.80-5.40); WBC 7.1 k/uL (3.8-10.6)
[2023-01-16 19:21] LABS: ALT 23 U/L (4-34); AST 19 U/L (14-36); African American GFR (CKD) >90 (>60 ml/min/1.73 sqM); Albumin 3.9 g/dL (3.5-5.0); Alkaline Phosphatase 44 U/L (38-126); Anion Gap 8 mmol/L; Blood Urea Nitrogen 9 mg/dL (7-17); Calcium 9.2 mg/dL (8.4-10.2); Carbon Dioxide 25 mmol/L (22-30); Chloride 105 mmol/L (98-107); Glucose 98 mg/dL (74-99); Non-African American GFR(CKD) >90 (>60 ml/min/1.73 sqM); Potassium 3.8 mmol/L (3.5-5.1); Sodium 138 mmol/L (137-145); Total Bilirubin 0.3 mg/dL (0.2-1.3); Total Protein 6.5 g/dL (6.3-8.2)
[2023-01-16] MEDS ORDERED: NALOXONE 0.4 MG/ML 1 ML VIAL IV PRN (19:31)
[2023-01-16] MEDS ORDERED: ONDANSETRON 4 MG/2 ML VIAL IVP PRN (19:31)
[2023-01-16] MEDS ORDERED: VANCOMYCIN IV PER PHARMACY 1 EACH MISC MISCELLANE PRN (19:31)
[2023-01-16] MEDS ORDERED: VANCOMYCIN 2,000 MG in SODIUM CHLORIDE 0.9% 500 ML 500 ML IVPB ONE (19:45)
[2023-01-16] MEDS: SODIUM CHLORIDE 0.9% 1,000 ML IV SCH (20:03)
[2023-01-16] MEDS: HYDROmorphone 0.5 MG/0.5 ML SYRINGE IVP PRN (20:03)
[2023-01-16 20:33] LABS: Appearance,Urine Clear (Clear); Bilirubin,Urine Negative (Negative); Blood,Urine Negative (Negative); Color,Urine Yellow; Glucose,Urine (UA) Negative (Negative); Ketones,Urine Negative (Negative); Protein,Urine Negative (Negative); Specific Gravity,Urine 1.015 (1.001-1.035)
[2023-01-16 20:34] LABS: Leukocyte Esterase,Urine Negative (Negative); Nitrite,Urine Negative (Negative); Urobilinogen,Urine <2.0 mg/dL (<2.0)
[2023-01-17] MEDS ORDERED: ALBUTEROL NEBULIZED 2.5 MG/3 ML INHALATION PRN (04:37)
[2023-01-17] MEDS ORDERED: ACETAMINOPHEN TAB 325 MG TAB PO PRN (06:21)
[2023-01-17] MEDS ORDERED: traMADol 50 MG TAB PO PRN (06:21)
[2023-01-17] MEDS: SODIUM CHLORIDE 0.9% 1,000 ML IV SCH ×2 (06:52→18:30)
[2023-01-17] MEDS: HYDROmorphone 1 MG/ML 1 ML SYRINGE IVP PRN ×3 (08:57→22:10)
[2023-01-17] MEDS: ENOXAPARIN 40 MG/0.4 ML SYRINGE SQ SCH (08:59)
[2023-01-17] MEDS: VANCOMYCIN 2,000 MG in SODIUM CHLORIDE 0.9% 500 ML 500 ML IVPB SCH ×2 (11:36→20:04)
--- NOTE | 2023-01-17 12:13 | P.HPIM ---
History of Present Illness H&P Date: 01/17/23 Chief Complaint: Failed outpatient treatment * 32-year-old patient with recent presentation to ER with left leg abscess, patient was seen in the emergency department for left thigh improvement abscess on 01/11/2023. * Patient had incision and drainage done and was seen in the emergency department multiple times. * Workup in ER showed WBC count within normal limits 7.1 hemoglobin 13.1 platelet count 270 * Serum chemistry obtained showed sodium 138 potassium 3.8, dissected 25 BUNs and creatinine 0.7 * Urinalysis obtained was within normal limits * Patient had incision and drainage initially done on 01/11/23 and cultures obtained which came back positive for MRSA. Previously patient was on Bactrim and was discharged on Keflex * Patient went to primary care office on 01/16/23 and was sent in for worsening erythema and further evaluation REVIEW OF SYSTEMS: Skin infection, erythema CONSTITUTIONAL: No fever, no malaise, no fatigue. HEENT: No recent visual problems or hearing problems. Denied any sore throat. CARDIOVASCULAR: No chest pain, orthopnea, PND, no palpitations, no syncope. PULMONARY: No shortness of breath, no cough, no hemoptysis. GASTROINTESTINAL: No diarrhea, no nausea, no vomiting, no abdominal pain. NEUROLOGICAL: No headaches, no weakness, no numbness. HEMATOLOGICAL: Denies any bleeding or petechiae. GENITOURINARY: Denies any burning micturition, frequency, or urgency. MUSCULOSKELETAL/RHEUMATOLOGICAL: Denies any joint pain, swelling, or any muscle pain. ENDOCRINE: Denies any polyuria or polydipsia. PHYSICAL EXAMINATION: GENERAL: The patient is alert and oriented x3, not in any acute distress. Well developed, well nourished. HEENT: Pupils are round and equally reacting to light. EOMI. CARDIOVASCULAR: S1 and S2 present. No murmurs, rubs, or gallops. PULMONARY: Chest is clear to auscultation, no wheezing or crackles. ABDOMEN: Soft, nontender, nondistended, normoactive bowel sounds. No palpable organomegaly. MUSCULOSKELETAL: No joint swelling or deformity. EXTREMITIES: No cyanosis, clubbing, or pedal edema. NEUROLOGICAL: Gross neurological examination did not reveal any focal deficits. SKIN: Erythema, induration, noted associated aspect of left thigh Past Medical History Past Medical History: Asthma, Thyroid Disorder Additional Past Medical History / Comment(s): INSOMNIA; BODERLINE PERSONALITY DISORDER, back pain hx of syncope, MURMUR CHILD,BRONCHITIS,CARPAL TUNNEL,ARHTIRITS,UTI'S, MIGRAINES."herniated disc neck/back" colitis; Degenerative Disc Disease History of Any Multi-Drug Resistant Organisms: None Reported, MRSA Date of last positivie culture/infection: 11/17/21 MDRO Source:: Left Axilla Past Surgical History: Adenoidectomy, Tonsillectomy Additional Past Surgical History / Comment(s): teeth pulled. SEVERAL AREAS ON BODY HAD i&D FROM AREAS WITH MRSA Past Anesthesia/Blood Transfusion Reactions: No Reported Reaction Additional Past Anesthesia/Blood Transfusion Reaction / Comment(s): CLAUSTERPHOBIA Past Psychological History: Anxiety, Bipolar, Depression, PTSD Smoking Status: Current every day smoker Past Alcohol Use History: Occasional, Rare Past Drug Use History: Marijuana - Past Family History Mother Family Medical History: Myocardial Infarction ([place]) Additional Family Medical History / Comment(s): AT AGE 45 FROM [place] Father Additional Family Medical History / Comment(s): WHEN PT WAS 9 MONTHS OLD FROM A BRAIN ANUERYSM Medications and Allergies Home Medications Medication Instructions Recorded Confirmed Type Sulfamethox-Tmp 800-160Mg [Bactrim 1 tab PO Q12HR #20 tab 11/16/21 01/16/23 Rx DS 800-160 mg] Cephalexin [Keflex] 500 mg PO Q6HR 7 Days #28 cap 01/11/23 01/16/23 Rx Albuterol Inhaler [Ventolin Hfa 2 puff INHALATION RT-Q8H PRN 01/16/23 01/16/23 History Inhaler] Cariprazine HCl [Vraylar] 1.5 mg PO HS 01/16/23 01/16/23 History Allergies Allergy/AdvReac Type Severity Reaction Status Date / Time adhesive tape Allergy Rash/Hives Verified 01/16/23 20:06 ceftriaxone sodium Allergy Rash/Hives Verified 01/16/23 20:06 [From Rocephin] FULL BODY latex Allergy Rash/Hives Verified 01/16/23 20:06 bupropion HCl AdvReac Hallucinati Verified 01/16/23 20:06 [From Wellbutrin] ons butalbital AdvReac Hallucinati Verified 01/16/23 20:06 ons Physical Exam Vitals: Vital Signs Temp Pulse Pulse Resp BP BP Pulse Ox 01/17/23 08:04 83 18 134/87 97 01/17/23 07:00 97.9 F 89 15 106/72 100 01/17/23 02:00 85 18 120/73 97 01/16/23 22:00 89 18 138/105 96 01/16/23 20:04 73 18 134/91 97 01/16/23 16:41 98.2 F 89 16 140/85 100 Intake and Output 01/16/23 01/17/23 01/17/23 22:59 06:59 14:59 Other: Weight 124.738 kg Results CBC & Chem 7: 01/16/23 18:39 01/16/23 18:39 Thrombosis Risk Factor Assmnt - DVT/VTE Prophylaxis DVT/VTE Prophylaxis: Pharmacologic Prophylaxis ordered, Mechanical Prophylaxis ordered Assessment and Plan Assessment: Assessment and plan * Left thigh purulent cellulitis * History of MRSA infection * Patient has failed outpatient treatment, was on Bactrim for a few days then Keflex, started on IV vancomycin with consultation from infectious disease * Continue IV vancomycin pharmacy to dose, continue with fluid resuscitation * Tylenol as needed for pain and fever * Lovenox for DVT prophylaxis * CODE STATUS is full code Time with Patient: Greater than 30
[2023-01-17] MEDS: PATIENT'S OWN (Cariprazine Hcl [Vraylar] 1.5 MG Capsule) PO SCH (20:05)
[2023-01-17] MEDS ORDERED: NON FORMULARY DRUG (Cariprazine Hcl [Vraylar] 1.5 MG Capsule) PO SCH (21:00)
--- NOTE | 2023-01-17 22:00 | P.CONS ---
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 patient apparently recently evaluated in the ER on 01/11/2023 and the patient did have left posterior thigh abscess patient did have a bedside I&D and the patient was discharged home on oral Keflex and Bactrim DS the patient mention she was taking at home regularly patient subsequently did have a fall with her primary care physician who has examined the area and thought it needs to be drained further for the patient was advised to go back to the hospital patient mention initially she did have a fever however after starting the antibiotic her fever went away patient complaining of pain to the left posterior thigh to be throbbing moderate intensity without any radiation with associated swelling, patient did have some drainage patient denies any nausea vomiting and no diarrhea with antibiotic therapy, patient on presentation to the hospital was afebrile and no fever was recorded subsequently patient was not tachycardic hypotensive or hypothermic white count of 7.1 creatinine was normal urine was negative urine hCG was negative patient was started on vancomycin infectious disease was consulted for further management of antibiotic therapy Review of Systems Positive point and negatives has been mentioned in the HPI, complete review of systems was performed and all other systems are negative Past Medical History Past Medical History: Asthma, Thyroid Disorder Additional Past Medical History / Comment(s): INSOMNIA; BODERLINE PERSONALITY D ISORDER, back pain hx of syncope, MURMUR CHILD,BRONCHITIS,CARPAL TUNNEL,ARHTIRITS,UTI'S, MIGRAINES."herniated disc neck/back" colitis; Degenerative Disc Disease History of Any Multi-Drug Resistant Organisms: None Reported, MRSA Year Discovered:: 11/17/21 MDRO Source:: Left Axilla Past Surgical History: Adenoidectomy, Tonsillectomy Additional Past Surgical History / Comment(s): teeth pulled. SEVERAL AREAS ON BODY HAD i&D FROM AREAS WITH MRSA Past Anesthesia/Blood Transfusion Reactions: No Reported Reaction Additional Past Anesthesia/Blood Transfusion Reaction / Comm: CLAUSTERPHOBIA Past Psychological History: Anxiety, Bipolar, Depression, PTSD Smoking Status: Current every day smoker Past Alcohol Use History: Occasional, Rare Past Drug Use History: Marijuana - Past Family History Mother Family Medical History: Myocardial Infarction ([place]) Additional Family Medical History / Comment(s): AT AGE 45 FROM [place] Father Additional Family Medical History / Comment(s): WHEN PT WAS 9 MONTHS OLD FROM A BRAIN ANUERYSM Medications and Allergies Home Medications Medication Instructions Recorded Confirmed Type Sulfamethox-Tmp 800-160Mg [Bactrim 1 tab PO Q12HR #20 tab 11/16/21 01/16/23 Rx DS 800-160 mg] Cephalexin [Keflex] 500 mg PO Q6HR 7 Days #28 cap 01/11/23 01/16/23 Rx Albuterol Inhaler [Ventolin Hfa 2 puff INHALATION RT-Q8H PRN 01/16/23 01/16/23 History Inhaler] Cariprazine HCl [Vraylar] 1.5 mg PO HS 01/16/23 01/16/23 History Allergies Allergy/AdvReac Type Severity Reaction Status Date / Time adhesive tape Allergy Rash/Hives Verified 01/16/23 20:06 ceftriaxone sodium Allergy Rash/Hives Verified 01/16/23 20:06 [From Rocephin] FULL BODY latex Allergy Rash/Hives Verified 01/16/23 20:06 bupropion HCl AdvReac Hallucinati Verified 01/16/23 20:06 [From Wellbutrin] ons butalbital AdvReac Hallucinati Verified 01/16/23 20:06 ons Physical Exam Vitals: Vital Signs Temp Pulse Pulse Resp BP BP Pulse Ox 01/17/23 08:04 83 18 134/87 97 01/17/23 07:00 97.9 F 89 15 106/72 100 01/17/23 02:00 85 18 120/73 97 01/16/23 22:00 89 18 138/105 96 01/16/23 20:04 73 18 134/91 97 01/16/23 16:41 98.2 F 89 16 140/85 100 Intake and Output 01/16/23 01/17/23 01/17/23 22:59 06:59 14:59 Other: Voiding Method Toilet Weight 124.738 kg GENERAL DESCRIPTION: Middle-aged female lying in bed, no distress. No tachypnea or accessory muscle of respiration use. HEENT: Shows Pallor , no scleral icterus. Oral mucous membrane is dry. No pharyngeal erythema or thrush NECK: Trachea central, no thyromegaly. LUNGS: Unlabored breathing. Clear to auscultation anteriorly. No wheeze or crackle. HEART: S1, S2, regular rate and rhythm. No loud murmur ABDOMEN: Soft, no tenderness , guarding or rigidity, no organomegaly EXTREMITIES: Left posterior thigh did have an area of induration tenderness no drainage was noticed SKIN: No rash, no masses palpable. NEUROLOGICAL: The patient is awake, alert, oriented x3, mood and affect normal. Results CBC & Chem 7: 01/16/23 18:39 01/16/23 18:39 Assessment and Plan (1) Abscess of left thigh Current Visit: Yes Status: Acute Code(s): L02.416 - CUTANEOUS ABSCESS OF LEFT LOWER LIMB SNOMED Code(s): 31729448953354512 (2) MRSA (methicillin resistant staph aureus) culture positive Current Visit: Yes Status: Acute Code(s): Z22.322 - CARRIER OR SUSPECTED CARRIER OF METHICILLIN RESIS STAPH SNOMED Code(s): 331214641 Plan: 1patient presented hospital with left posterior thigh pain swelling and did have some drainage in this patient who recently did have I&D of the area and culture subsequently grew MRSA that was sensitive to Bactrim DS now presented to hospital per direction of PCP concerning for need for further drainage however the patient mostly having induration to the area and no fluctuance 2-patient has been advised warm compression to the area 3-vancomycin pharmacy to dose with a target trough of 15 while watching kidney function and Vanco trough closely. 4-marked area of induration we will follow on clinical condition and cultures to further adjust medication if needed Thank you for this consultation we will follow the patient along with you Dictation was produced using [employer] dictation software. please excuse any grammatical, word or spelling errors. Time with Patient: Greater than 30
[2023-01-18] MEDS: SODIUM CHLORIDE 0.9% 1,000 ML IV SCH ×4 (08:28→23:27)
[2023-01-18] MEDS: VANCOMYCIN 2,000 MG in SODIUM CHLORIDE 0.9% 500 ML 500 ML IVPB SCH ×2 (08:28→20:16)
[2023-01-18] MEDS: ENOXAPARIN 40 MG/0.4 ML SYRINGE SQ SCH (08:32)
[2023-01-18 08:44] LABS: Basophils # (A) 0.08 X 10*3/uL (0.00-0.10); Basophils % (A) 1.3 %; Eosinophils # (A) 0.24 X 10*3/uL (0.04-0.35); Lymphocytes # (A) 3.39 X 10*3/uL (0.90-5.00); MCH 29.7 pg (27.0-32.0); MCHC 33.3 g/dL (32.0-37.0); MCV 89.1 FL (80.0-97.0); Mean Platelet Volume 10.8 FL (9.5-12.2); Monocytes # (A) 0.43 X 10*3/uL (0.20-1.00); Monocytes % (A) 7.1 %; NRBC Per 100 WBC 0 X 10*3/uL (0.00-0.01); Neutrophils % (A) 31.4 %; Platelet Count 255 X 10*3/uL (140-440); RBC 4.04 X 10*6/uL (4.10-5.20); RDW 12.1 % (11.5-14.5); WBC 6.05 X 10*3/uL (4.50-10.00)
[2023-01-18 09:11] LABS: BUN/Creat Ratio 12.67 Ratio (12.00-20.00); Blood Urea Nitrogen 7.6 mg/dL (9.0-27.0); Calcium 8.6 mg/dL (8.7-10.3); Carbon Dioxide 23.4 mmol/L (21.6-31.8); Chloride 108 mmol/L (96-109); Glucose 91 mg/dL (70-110); Potassium 4.2 mmol/L (3.5-5.5); Sodium 140 mmol/L (135-145)
--- NOTE | 2023-01-18 12:25 | P.PN ---
Subjective Progress Note Date: 01/18/23 * 32-year-old patient with recent presentation to ER with left leg abscess, patient was seen in the emergency department for left thigh improvement abscess on 01/11/2023. * Patient had incision and drainage done and was seen in the emergency department multiple times. * Workup in ER showed WBC count within normal limits 7.1 hemoglobin 13.1 platelet count 270 * Serum chemistry obtained showed sodium 138 potassium 3.8, dissected 25 BUNs and creatinine 0.7 * Urinalysis obtained was within normal limits * Patient had incision and drainage initially done on 01/11/23 and cultures obtained which came back positive for MRSA. Previously patient was on Bactrim and was discharged on Keflex * Patient went to primary care office on 01/16/23 and was sent in for worsening erythema and further evaluation * 01/18/2023 : Patient seen and evaluated bedside, patient to use to complain of left thigh discomfort, CT left leg obtained, general surgery consulted as well continue IV antibiotic on vancomycin. We'll appreciate input from general surgery. REVIEW OF SYSTEMS: Skin infection, erythema CONSTITUTIONAL: No fever, no malaise, no fatigue. HEENT: No recent visual problems or hearing problems. Denied any sore throat. CARDIOVASCULAR: No chest pain, orthopnea, PND, no palpitations, no syncope. PULMONARY: No shortness of breath, no cough, no hemoptysis. GASTROINTESTINAL: No diarrhea, no nausea, no vomiting, no abdominal pain. NEUROLOGICAL: No headaches, no weakness, no numbness. HEMATOLOGICAL: Denies any bleeding or petechiae. GENITOURINARY: Denies any burning micturition, frequency, or urgency. MUSCULOSKELETAL/RHEUMATOLOGICAL: Denies any joint pain, swelling, or any muscle pain. ENDOCRINE: Denies any polyuria or polydipsia. PHYSICAL EXAMINATION: GENERAL: The patient is alert and oriented x3, not in any acute distress. Well developed, well nourished. HEENT: Pupils are round and equally reacting to light. EOMI. CARDIOVASCULAR: S1 and S2 present. No murmurs, rubs, or gallops. PULMONARY: Chest is clear to auscultation, no wheezing or crackles. ABDOMEN: Soft, nontender, nondistended, normoactive bowel sounds. No palpable organomegaly. MUSCULOSKELETAL: No joint swelling or deformity. EXTREMITIES: No cyanosis, clubbing, or pedal edema. NEUROLOGICAL: Gross neurological examination did not reveal any focal deficits. SKIN: Erythema, induration, posterior aspect of left thigh Objective - Vital Signs Vital signs: Vital Signs Temp 98.2 F 01/18/23 07:00 Pulse 77 01/18/23 07:00 Resp 16 01/18/23 08:00 BP 122/77 01/18/23 07:00 Pulse Ox 94 L 01/18/23 07:00 FiO2 Intake & Output 01/17/23 01/18/23 01/18/23 18:59 06:59 18:59 Intake Total 118 236 Balance 118 236 Weight 124.738 kg Intake: Oral 118 236 Other: Voiding Method Toilet Toilet # Voids 2 2 # Bowel Movements 1 - Labs CBC & Chem 7: 01/18/23 05:57 01/18/23 05:57 Labs: Abnormal Lab Results - Last 24 Hours (Table) 01/18/23 01/18/23 Range/Units 05:57 05:57 RBC 4.04 L (4.10-5.20) X 10*6/uL Hct 36.0 L (37.2-46.3) % BUN 7.6 L (9.0-27.0) mg/dL Calcium 8.6 L (8.7-10.3) mg/dL Microbiology - Last 24 Hours (Table) 01/16/23 18:35 Blood Culture - Preliminary Blood 01/16/23 18:20 Blood Culture - Preliminary Blood Assessment and Plan Assessment: Assessment and plan * Left thigh purulent cellulitis * History of MRSA infection * Patient has failed outpatient treatment, was on Bactrim for a few days then Keflex, started on IV vancomycin with consultation from infectious disease CT left leg ordered * Continue IV vancomycin pharmacy to dose, continue with fluid resuscitation * Tylenol as needed for pain and fever * Urine test negative * Lovenox for DVT prophylaxis * Barrier to discharge continued to have pain/discharge from site of induration * CODE STATUS is full code Time with Patient: Greater than 30
[2023-01-18] MEDS: LACTOBACILLUS ACIDOPHILUS/PECT 1 EACH CAPSULE PO SCH ×3 (13:21→20:21)
--- NOTE | 2023-01-18 14:10 | P.GSCN ---
History of Present Illness Consult date: 01/18/23 History of present illness: CHIEF COMPLAINT: Left thigh abscess HISTORY OF PRESENT ILLNESS: This is a 32-year-old female who presented with complaints of a possible left posterior thigh abscess. Patient had noted increased pain, swelling and redness of the posterior left thigh. She did come into the ER on 01/11/2023 and had an I&D by the ER physician and discharged with oral antibiotics. Patient reports that the abscess had been draining she had been packing it. And then she noted that there was increased redness and swelling and came back into the ER for further evaluation and treatment. Patient reports feeling feverish and chilled. She her cultures did grow MRSA. She does have prior history of abscesses and hydradenitis suppurativa. 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 She denies any history of diabetes. PAST MEDICAL HISTORY: Asthma, Thyroid Disorder, INSOMNIA; BODERLINE PERSONALITY DISORDER, back pain hx of syncope, MURMUR CHILD,BRONCHITIS,CARPAL TUNNEL,ARHTIRITS,UTI'S, MIGRAINES."herniated disc neck/back" colitis; Degenerative Disc Disease PAST SURGICAL HISTORY: Adenoidectomy, Tonsillectomy MEDICATIONS: See below ALLERGIES: See below SOCIAL HISTORY: No illicit drug use. REVIEW OF SYSTEMS: CONSTITUTIONAL: Denies fever or chills. HEENT: Denies blurred vision, vision changes, or eye pain. Denies hemoptysis CARDIOVASCULAR: Denies chest pain or pressure. RESPIRATORY: No shortness of breath. GASTROINTESTINAL: See HPI for pertinent findings HEMATOLOGIC: Denies bleeding disorders. GENITOURINARY: Denies any blood in urine or increased urinary frequency. SKIN: Denies pruitis. Denies rash. PHYSICAL EXAM: VITAL SIGNS: Reviewed GENERAL: Well-developed in no acute distress. ABDOMEN: Soft. Nontender nondistended. NEUROLOGIC: Alert and oriented. Cranial nerves II through XII grossly intact. SKIN: Posterior left thigh with area 2-3 cm of induration, erythema and tenderness with palpation. There is some mild serosanguineous drainage noted. LABORATORY DATA: WBC 6.05 Hgb 12.0 platelets 255 Sodium is 140 potassium is 4.2 creatinine 0.6 Urinalysis negative for infection Glucose 124 IMAGING: Computed tomography scan of left femur pending ASSESSMENT: 1. Left posterior thigh abscess status post prior incision and drainage by ER physician PLAN: -No surgical intervention planned -Continue antibiotics per infectious disease -Continue warm compresses -Shower daily -Check hemoglobin A1c Thank you for this consultation Physician Dialysis Registered Nurse note has been reviewed by physician. Signing provider agrees with the documented findings, assessment, and plan of care. Past Medical History Past Medical History: Asthma, Thyroid Disorder Additional Past Medical History / Comment(s): INSOMNIA; BODERLINE PERSONALITY DISORDER, back pain hx of syncope, MURMUR CHILD,BRONCHITIS,CARPAL TUNNEL,ARHTIRITS,UTI'S, MIGRAINES."herniated disc neck/back" colitis; Degenerative Disc Disease History of Any Multi-Drug Resistant Organisms: MRSA Year Discovered:: 01/11/23 MDRO Source:: Left Leg Past Surgical History: Adenoidectomy, Tonsillectomy Additional Past Surgical History / Comment(s): teeth pulled. SEVERAL AREAS ON BODY HAD i&D FROM AREAS WITH MRSA Past Anesthesia/Blood Transfusion Reactions: No Reported Reaction Additional Past Anesthesia/Blood Transfusion Reaction / Comm: CLAUSTERPHOBIA Past Psychological History: Anxiety, Bipolar, Depression, PTSD Smoking Status: Current every day smoker Past Alcohol Use History: Occasional, Rare Past Drug Use History: Marijuana - Past Family History Mother Family Medical History: Myocardial Infarction ([place]) Additional Family Medical History / Comment(s): AT AGE 45 FROM [place] Father Additional Family Medical History / Comment(s): WHEN PT WAS 9 MONTHS OLD FROM A BRAIN ANUERYSM Medications and Allergies Home Medications Medication Instructions Recorded Confirmed Type Sulfamethox-Tmp 800-160Mg [Bactrim 1 tab PO Q12HR #20 tab 11/16/21 01/16/23 Rx DS 800-160 mg] Cephalexin [Keflex] 500 mg PO Q6HR 7 Days #28 cap 01/11/23 01/16/23 Rx Albuterol Inhaler [Ventolin Hfa 2 puff INHALATION RT-Q8H PRN 01/16/23 01/16/23 History Inhaler] Cariprazine HCl [Vraylar] 1.5 mg PO HS 01/16/23 01/16/23 History Allergies Allergy/AdvReac Type Severity Reaction Status Date / Time adhesive tape Allergy Rash/Hives Verified 01/16/23 20:06 ceftriaxone sodium Allergy Rash/Hives Verified 01/16/23 20:06 [From Rocephin] FULL BODY latex Allergy Rash/Hives Verified 01/16/23 20:06 bupropion HCl AdvReac Hallucinati Verified 01/16/23 20:06 [From Wellbutrin] ons butalbital AdvReac Hallucinati Verified 01/16/23 20:06 ons Surgical - Exam Vital Signs Temp Pulse Resp BP Pulse Ox 98.2 F 89 16 140/85 100 01/16/23 16:41 01/16/23 16:41 01/16/23 16:41 01/16/23 16:41 01/16/23 16:41 Results - Labs 01/18/23 05:57 01/18/23 05:57 Abnormal Lab Results - Last 24 Hours (Table) 01/18/23 01/18/23 Range/Units 05:57 05:57 RBC 4.04 L (4.10-5.20) X 10*6/uL Hct 36.0 L (37.2-46.3) % BUN 7.6 L (9.0-27.0) mg/dL Calcium 8.6 L (8.7-10.3) mg/dL Microbiology - Last 24 Hours (Table) 01/16/23 18:35 Blood Culture - Preliminary Blood 01/16/23 18:20 Blood Culture - Preliminary Blood Diabetes panel 01/18/23 Range/Units 05:57 Sodium 140 (135-145) mmol/L Potassium 4.2 (3.5-5.5) mmol/L Chloride 108 (96-109) mmol/L Carbon Dioxide 23.4 (21.6-31.8) mmol/L BUN 7.6 L (9.0-27.0) mg/dL Creatinine 0.6 (0.6-1.5) mg/dL Glucose 91 (70-110) mg/dL Calcium 8.6 L (8.7-10.3) mg/dL Calcium panel 01/18/23 Range/Units 05:57 Calcium 8.6 L (8.7-10.3) mg/dL Pituitary panel 01/18/23 Range/Units 05:57 Sodium 140 (135-145) mmol/L Potassium 4.2 (3.5-5.5) mmol/L Chloride 108 (96-109) mmol/L Carbon Dioxide 23.4 (21.6-31.8) mmol/L BUN 7.6 L (9.0-27.0) mg/dL Creatinine 0.6 (0.6-1.5) mg/dL Glucose 91 (70-110) mg/dL Calcium 8.6 L (8.7-10.3) mg/dL Adrenal panel 01/18/23 Range/Units 05:57 Sodium 140 (135-145) mmol/L Potassium 4.2 (3.5-5.5) mmol/L Chloride 108 (96-109) mmol/L Carbon Dioxide 23.4 (21.6-31.8) mmol/L BUN 7.6 L (9.0-27.0) mg/dL Creatinine 0.6 (0.6-1.5) mg/dL Glucose 91 (70-110) mg/dL Calcium 8.6 L (8.7-10.3) mg/dL
[2023-01-18] MEDS: HYDROmorphone 0.5 MG/0.5 ML SYRINGE IVP PRN (15:01)
--- NOTE | 2023-01-18 19:53 | CT ---
EXAMINATION TYPE: CT femur LT w con DATE OF EXAM: 01/18/2023 COMPARISON: None HISTORY: 32-year-old female with pain, LT thigh abscess, posterior. TECHNIQUE: Contiguous axial scanning of the left femur performed with IV Contrast, patient injected w ith 100 mL of Isovue 300. Coronal and sagittal reconstructions performed. 3-D reconstructions generat ed on a dedicated independent workstation. CT DLP: 1053.50 mGycm Automated exposure control for dose reduction was used. FINDINGS: Uterus anteverted. Both ovaries are visualized. Bladder urine distended. There is mild degenerative change in both hips. There is focal soft tissue reticulation within the subcutaneous fat of the posterior mid left thigh. Overlying skin thickening. No abnormal fluid collection is seen. No periostitis or osteomyelitis or acute fracture is seen. IMPRESSION: FOCAL CELLULITIS POSTERIOR MID LEFT THIGH WITHOUT DISCRETE ABSCESS. RECOMMEND CLINICAL MANAGEMENT. IF THERE IS WORSENING DESPITE TREATMENT, CONSIDER TARGETED ULTRASOUND FOLLOW-UP. THERE IS NO ABNORMALIT Y OF THE UNDERLYING MUSCULATURE OR DEEPER STRUCTURES.
[2023-01-18] MEDS: PATIENT'S OWN (Cariprazine Hcl [Vraylar] 1.5 MG Capsule) PO SCH (20:20)
[2023-01-18 22:25] VITALS: RESP 16
[2023-01-19] MEDS: HYDROmorphone 0.5 MG/0.5 ML SYRINGE IVP PRN (00:37)
[2023-01-19 06:50] LABS: African American GFR (CKD) >90 (>60 ml/min/1.73 sqM); Non-African American GFR(CKD) >90 (>60 ml/min/1.73 sqM)
[2023-01-19] MEDS ORDERED: VANCOMYCIN TROUGH DUE 1 EACH MISC MISCELLANE ONE (07:00)
[2023-01-19] MEDS: ENOXAPARIN 40 MG/0.4 ML SYRINGE SQ SCH (09:01)
[2023-01-19] MEDS: LACTOBACILLUS ACIDOPHILUS/PECT 1 EACH CAPSULE PO SCH ×3 (09:01→21:03)
[2023-01-19] MEDS: VANCOMYCIN 2,000 MG in SODIUM CHLORIDE 0.9% 500 ML 500 ML IVPB SCH ×3 (09:02→23:51)
[2023-01-19 09:11] LABS: Blood Urea Nitrogen 9.3 mg/dL (9.0-27.0); Calcium 8.6 mg/dL (8.7-10.3); Carbon Dioxide 24.3 mmol/L (21.6-31.8); Chloride 106 mmol/L (96-109); Glucose 85 mg/dL (70-110); Potassium 4.4 mmol/L (3.5-5.5); Sodium 140 mmol/L (135-145)
[2023-01-19 10:18] LABS: HCT 37.1 % (37.2-46.3); HGB 12.2 g/dL (12.0-15.0); MCH 29.9 pg (27.0-32.0); MCHC 32.9 g/dL (32.0-37.0); MCV 90.9 FL (80.0-97.0); Mean Platelet Volume 11.1 FL (9.5-12.2); NRBC Per 100 WBC 0 X 10*3/uL (0.00-0.01); Platelet Count 273 X 10*3/uL (140-440); RBC 4.08 X 10*6/uL (4.10-5.20); WBC 5.98 X 10*3/uL (4.50-10.00)
--- NOTE | 2023-01-19 11:29 | P.PN ---
Subjective Progress Note Date: 01/19/23 NAEON. No F/C. No worsening LLE pain or swelling. No SOB or CP. Ambulatory and voiding, Admits to flatus and BM. Tolerating diet. Objective - Vital Signs Vital signs: Vital Signs Temp 97.8 F 01/19/23 07:00 Pulse 64 01/19/23 07:00 Resp 16 01/19/23 07:00 BP 126/73 01/19/23 07:00 Pulse Ox 96 01/19/23 07:00 FiO2 Intake & Output 01/18/23 01/19/23 01/19/23 18:59 06:59 18:59 Intake Total 354 280 Balance 354 280 Intake: Oral 354 280 Other: Voiding Method Toilet Toilet Toilet # Voids 1 2 - Exam Gen: AxO, NAD Pulm: non-labored respirations Abd: soft, non-tender, non distended, no guarding/rebound/rigidityd Extrem: Mild erythema or Left posterior thigh. No fluctuence or drainage seen. Minimally tender to palpation. +2 DP/PT of LLE. Full motor and sensation intact in B/L LE - Labs CBC & Chem 7: 01/19/23 06:03 01/19/23 06:03 Labs: Abnormal Lab Results - Last 24 Hours (Table) 01/19/23 01/19/23 Range/Units 06:03 06:03 RBC 4.08 L (4.10-5.20) X 10*6/uL Hct 37.1 L (37.2-46.3) % Calcium 8.6 L (8.7-10.3) mg/dL Microbiology - Last 24 Hours (Table) 01/16/23 18:35 Blood Culture - Preliminary Blood 01/16/23 18:20 Blood Culture - Preliminary Blood Assessment and Plan Assessment: Patient is a 32 year old female who presents for LLE cellulitis without abscess seen on CT Plan: -Diet as tolerated -Abx per primary -PRN pain control -No acute surgical intervention Jovany Howard MD General Surgery
[2023-01-19] MEDS: SODIUM CHLORIDE 0.9% 1,000 ML IV SCH (16:55)
[2023-01-19] MEDS: HYDROmorphone 1 MG/ML 1 ML SYRINGE IVP PRN (17:02)
[2023-01-19] MEDS: PATIENT'S OWN (Cariprazine Hcl [Vraylar] 1.5 MG Capsule) PO SCH (21:03)
--- NOTE | 2023-01-19 22:35 | P.PN ---
Subjective Progress Note Date: 01/18/23 Principal diagnosis: Reason for follow-up is left posterior thigh MRSA abscess patient is a 32-year-old female with past medical history significant for recurrent MRSA infection presented to the hospital with left posterior thigh pain swelling redness with recent I&D in the ER culture positive for MRSA On today's evaluation that is 01/18/2023, the patient denies having any fever or any chills patient is breathing comfortably on room air still complaining of pain to the left posterior thigh slightly decreased in intensity no chest pain shortness of breath or cough no abdominal pain or diarrhea wbc 6.05 , Cr 0.6 Objective - Vital Signs Vital signs: Vital Signs Temp 98.2 F 01/18/23 07:00 Pulse 77 01/18/23 07:00 Resp 16 01/18/23 07:00 BP 122/77 01/18/23 07:00 Pulse Ox 94 L 01/18/23 07:00 FiO2 Intake & Output 01/17/23 01/18/23 01/18/23 18:59 06:59 18:59 Intake Total 118 Balance 118 Weight 124.738 kg Intake: Oral 118 Other: Voiding Method Toilet # Voids 2 2 # Bowel Movements 1 - Exam GENERAL DESCRIPTION: Middle-age female lying in bed in no distress RESPIRATORY SYSTEM: Unlabored breathing , clear to auscultation anteriorly HEART: S1 S2 regular rate and rhythm , ABDOMEN: Soft , no tenderness EXTREMITIES: Left posterior areas of induration about the same slightly tender to touch - Labs CBC & Chem 7: 01/19/23 06:03 01/19/23 06:03 Labs: Abnormal Lab Results - Last 24 Hours (Table) 01/18/23 01/18/23 Range/Units 05:57 05:57 RBC 4.04 L (4.10-5.20) X 10*6/uL Hct 36.0 L (37.2-46.3) % BUN 7.6 L (9.0-27.0) mg/dL Calcium 8.6 L (8.7-10.3) mg/dL Microbiology - Last 24 Hours (Table) 01/16/23 18:35 Blood Culture - Preliminary Blood 01/16/23 18:20 Blood Culture - Preliminary Blood Assessment and Plan (1) Abscess of left thigh Current Visit: Yes Status: Acute Code(s): L02.416 - CUTANEOUS ABSCESS OF LEFT LOWER LIMB SNOMED Code(s): 74615322735454301 (2) MRSA (methicillin resistant staph aureus) culture positive Current Visit: Yes Status: Acute Code(s): Z22.322 - CARRIER OR SUSPECTED CARRIER OF METHICILLIN RESIS STAPH SNOMED Code(s): 158242388 Plan: 1patient presented hospital with left posterior thigh pain swelling and did have some drainage in this patient who recently did have I&D of the area and culture subsequently grew MRSA that was sensitive to Bactrim DS now presented to hospital per direction of PCP concerning for need for further drainage however the patient mostly having induration to the area and no fluctuance 2-patient has been advised warm compression to the area, CT has been ordered 3-Pt to contiue with vancomycin pharmacy to dose with a target trough of 15 while watching kidney function and Vanco trough closely. Dictation was produced using [employer] dictation software. please excuse any grammatical, word or spelling errors. Time with Patient: Less than 30
--- NOTE | 2023-01-19 22:38 | P.PN ---
Subjective Progress Note Date: 01/19/23 Principal diagnosis: Reason for follow-up is left posterior thigh MRSA abscess This is a telehealth visit patient is a 32-year-old female with past medical history significant for recurrent MRSA infection presented to the hospital with left posterior thigh pain swelling redness with recent I&D in the ER culture positive for MRSA On today's evaluation that is 01/19/2023, the patient is afebrile , patient is breathing comfortably on room air , the Pt pain to the left posterior thigh has decreased in intensity , the pt denies chest pain shortness of breath or cough no abdominal pain or diarrhea wbc is 5.98 , Cr 0.57 Objective - Vital Signs Vital signs: Vital Signs Temp 97.8 F 01/19/23 07:00 Pulse 64 01/19/23 07:00 Resp 16 01/19/23 07:00 BP 126/73 01/19/23 07:00 Pulse Ox 96 01/19/23 07:00 FiO2 Intake & Output 01/18/23 01/19/23 01/19/23 18:59 06:59 18:59 Intake Total 354 Balance 354 Intake: Oral 354 Other: Voiding Method Toilet Toilet # Voids 1 2 - Exam GENERAL DESCRIPTION: Middle-age female lying in bed in no distress RESPIRATORY SYSTEM: Unlabored breathing , clear to auscultation anteriorly HEART: S1 S2 regular rate and rhythm , ABDOMEN: Soft , no tenderness EXTREMITIES: Left posterior areas of induration has decreased in intensity , less tender to touch exam completed with help of [employer] - Labs CBC & Chem 7: 01/19/23 06:03 01/19/23 06:03 Labs: Abnormal Lab Results - Last 24 Hours (Table) 01/19/23 Range/Units 06:03 Calcium 8.6 L (8.7-10.3) mg/dL Microbiology - Last 24 Hours (Table) 01/16/23 18:35 Blood Culture - Preliminary Blood 01/16/23 18:20 Blood Culture - Preliminary Blood Assessment and Plan (1) Abscess of left thigh Current Visit: Yes Status: Acute Code(s): L02.416 - CUTANEOUS ABSCESS OF LEFT LOWER LIMB SNOMED Code(s): 60609549906915071 (2) MRSA (methicillin resistant staph aureus) culture positive Current Visit: Yes Status: Acute Code(s): Z22.322 - CARRIER OR SUSPECTED CARRIER OF METHICILLIN RESIS STAPH SNOMED Code(s): 369730629 Plan: 1patient presented hospital with left posterior thigh pain swelling and did have some drainage in this patient who recently did have I&D of the area and culture subsequently grew MRSA that was sensitive to Bactrim DS now presented to hospital per direction of PCP concerning for need for further drainage however the patient mostly having induration to the area and no fluctuance 2-patient has been advised warm compression to the area, CT didnot show any abscess 3-Pt to contiue with vancomycin pharmacy to dose with a plan to finish therapy with oral bactrim DS Dictation was produced using [employer] dictation software. please excuse any grammatical, word or spelling errors. Time with Patient: Less than 30
[2023-01-20] MEDS: SODIUM CHLORIDE 0.9% 1,000 ML IV SCH ×2 (03:20→14:17)
[2023-01-20 04:43] LABS: African American GFR (CKD) >90 (>60 ml/min/1.73 sqM); Non-African American GFR(CKD) >90 (>60 ml/min/1.73 sqM)
[2023-01-20] MEDS: VANCOMYCIN 2,000 MG in SODIUM CHLORIDE 0.9% 500 ML 500 ML IVPB SCH ×3 (08:48→21:12)
[2023-01-20] MEDS: LACTOBACILLUS ACIDOPHILUS/PECT 1 EACH CAPSULE PO SCH ×3 (08:48→21:13)
[2023-01-20] MEDS: ENOXAPARIN 40 MG/0.4 ML SYRINGE SQ SCH (08:48)
--- NOTE | 2023-01-20 12:16 | P.PN ---
Progress Note - Text Progress Note Date: 01/20/23 Patient feels better. She has less pain over her left posterior thigh abscess area. There is been no significant drainage. The redness has improved. The patient is stable for discharge from general surgery standpoint. She'll follow-up as an outpatient.
[2023-01-20] MEDS ORDERED: VANCOMYCIN TROUGH DUE 1 EACH MISC MISCELLANE ONE (15:00)
[2023-01-20] MEDS: PATIENT'S OWN (Cariprazine Hcl [Vraylar] 1.5 MG Capsule) PO SCH (21:13)
[2023-01-21] MEDS: SODIUM CHLORIDE 0.9% 1,000 ML IV SCH ×2 (05:54→09:20)
--- NOTE | 2023-01-21 06:40 | P.PN ---
Subjective 32-year-old patient with recent presentation to ER with left leg abscess, patient was seen in the emergency department for left thigh improvement abscess on 01/11/2023. Patient had incision and drainage done and was seen in the emergency departme nt multiple times. Workup in ER showed WBC count within normal limits 7.1 hemoglobin 13.1 platelet count 270 Serum chemistry obtained showed sodium 138 potassium 3.8, dissected 25 BUNs and creatinine 0.7 Urinalysis obtained was within normal limits Patient had incision and drainage initially done on 01/11/23 and cultures obtained which came back positive for MRSA. Previously patient was on Bactrim and was discharged on Keflex Patient went to primary care office on 01/16/23 and was sent in for worsening erythema and further evaluation 01/18/2023 : Patient seen and evaluated bedside, patient to use to complain of left thigh discomfort, CT left leg obtained, general surgery consulted as well continue IV antibiotic on vancomycin. We'll appreciate input from general surgery. 01/19/2023 Patient line bed comfortable She has small opening on the back of the thigh with no surrounding cellulitis significantly [incontinent exam done in the process of the bedside nurse after verbal consent obtained from the patient] She has some vomiting but it is better now. No abdominal pain. Continue with IV vancomycin and normal saline at 100 mL/h Objective - Vital Signs Vital signs: Vital Signs Temp 97.8 F 01/19/23 07:00 Pulse 64 01/19/23 07:00 Resp 16 01/19/23 07:00 BP 126/73 01/19/23 07:00 Pulse Ox 96 01/19/23 07:00 FiO2 Intake & Output 01/18/23 01/19/23 01/19/23 18:59 06:59 18:59 Intake Total 354 280 Balance 354 280 Intake: Oral 354 280 Other: Voiding Method Toilet Toilet Toilet # Voids 1 2 - Exam GENERAL: The patient is alert and oriented x3, not in any acute distress. Well developed, well nourished. HEENT: Pupils are round and equally reacting to light. EOMI. No scleral icterus. No conjunctival pallor. Normocephalic, atraumatic. No pharyngeal erythema. No thyromegaly. CARDIOVASCULAR: S1 and S2 present. No murmurs, rubs, or gallops. PULMONARY: Chest is clear to auscultation, no wheezing , no crackles. ABDOMEN: Soft, nontender, nondistended, normoactive bowel sounds. No palpable organomegaly. MUSCULOSKELETAL: No joint swelling or deformity. -EXTREMITIES: No cyanosis, clubbing, or pedal edema. Left thigh: Small opening posteriorly with no significant drainage, mild swelling with no significant redness NEUROLOGICAL: Gross neurological examination did not reveal any focal deficits. SKIN: No rashes. no petechiae. - Labs CBC & Chem 7: 01/19/23 06:03 01/20/23 03:50 Labs: Abnormal Lab Results - Last 24 Hours (Table) 01/19/23 01/19/23 Range/Units 06:03 06:03 RBC 4.08 L (4.10-5.20) X 10*6/uL Hct 37.1 L (37.2-46.3) % Calcium 8.6 L (8.7-10.3) mg/dL Microbiology - Last 24 Hours (Table) 01/16/23 18:35 Blood Culture - Preliminary Blood 01/16/23 18:20 Blood Culture - Preliminary Blood Assessment and Plan Assessment: Left thigh cellulitis with no evidence of abscess Morbid obesity with BMI of 47.2 History of MRSA infection Plan: Continue with IV vancomycin ID and Gen. surgery service team are following closely Continue with parenteral hydration Labs and medication were reviewed.. Continue same treatment. Continue with symptomatic treatment. Resume home medication. Monitor labs and vitals. DVT and GI prophylaxis. Further recommendations as per clinical course of the patient DVT prophylaxis: Subcutaneous heparin GI Prophylaxis: Prognosis is guarded
--- NOTE | 2023-01-21 06:41 | P.PN ---
Subjective 32-year-old patient with recent presentation to ER with left leg abscess, patient was seen in the emergency department for left thigh improvement abscess on 01/11/2023. Patient had incision and drainage done and was seen in the emergency departme multiple times. Workup in ER showed WBC count within normal limits 7.1 hemoglobin 13.1 platelet count 270 Serum chemistry obtained showed sodium 138 potassium 3.8, dissected 25 BUNs and creatinine 0.7 Urinalysis obtained was within normal limits Patient had incision and drainage initially done on 01/11/23 and cultures obtained which came back positive for MRSA. Previously patient was on Bactrim and was discharged on Keflex Patient went to primary care office on 01/16/23 and was sent in for worsening erythema and further evaluation 01/18/2023 : Patient seen and evaluated bedside, patient to use to complain of left thigh discomfort, CT left leg obtained, general surgery consulted as well continue IV antibiotic on vancomycin. We'll appreciate input from general surgery. 01/19/2023 Patient line bed comfortable She has small opening on the back of the thigh with no surrounding cellulitis significantly [incontinent exam done in the process of the bedside nurse after verbal consent obtained from the patient] She has some vomiting but it is better now. No abdominal pain. Continue with IV vancomycin and normal saline at 100 mL/h 01/20/2023 Patient cellulitis of the left side posteriorly continue to improve slowly and gradually No evidence of abscess and surgery team site of the case Continue with IV vancomycin with plan to switch to oral Bactrim upon discharge Continue with normal saline 100 mL per hour Possible discharge in 24-48 hours if she keeps improvement Objective - Vital Signs Vital signs: Vital Signs Temp 97.8 F 01/20/23 13:57 Pulse 105 H 01/20/23 13:57 Resp 16 01/20/23 13:57 BP 138/81 01/20/23 13:57 Pulse Ox 99 01/20/23 13:57 FiO2 Intake & Output 01/20/23 01/20/23 01/21/23 06:59 18:59 06:59 Intake Total 118 Balance 118 Intake: Oral 118 Other: Voiding Method Toilet Toilet # Voids 2 1 - Exam GENERAL: The patient is alert and oriented x3, not in any acute distress. Well developed, well nourished. HEENT: Pupils are round and equally reacting to light. EOMI. No scleral icterus. No conjunctival pallor. Normocephalic, atraumatic. No pharyngeal erythema. No thyromegaly. CARDIOVASCULAR: S1 and S2 present. No murmurs, rubs, or gallops. PULMONARY: Chest is clear to auscultation, no wheezing , no crackles. ABDOMEN: Soft, nontender, nondistended, normoactive bowel sounds. No palpable organomegaly. MUSCULOSKELETAL: No joint swelling or deformity. -EXTREMITIES: No cyanosis, clubbing, or pedal edema. Left thigh: Small opening posteriorly with no significant drainage, mild swelling with no significant redness NEUROLOGICAL: Gross neurological examination did not reveal any focal deficits. SKIN: No rashes. no petechiae. - Labs CBC & Chem 7: 01/19/23 06:03 01/20/23 03:50 Labs: Microbiology - Last 24 Hours (Table) 01/16/23 18:35 Blood Culture - Preliminary Blood 01/16/23 18:20 Blood Culture - Preliminary Blood Assessment and Plan Assessment: Left thigh cellulitis with no evidence of abscess Morbid obesity with BMI of 47.2 History of MRSA infection Plan: Continue with IV vancomycin ID and Gen. surgery service team are following closely Continue with parenteral hydration Labs and medication were reviewed.. Continue same treatment. Continue with symptomatic treatment. Resume home medication. Monitor labs and vitals. DVT and GI prophylaxis. Further recommendations as per clinical course of the patient DVT prophylaxis: Subcutaneous heparin GI Prophylaxis: Prognosis is guarded
[2023-01-21 07:43] VITALS: BP 100/65; PULSE 59; TEMP 98.6
[2023-01-21 09:13] LABS: African American GFR (CKD) >90 (>60 ml/min/1.73 sqM); Non-African American GFR(CKD) >90 (>60 ml/min/1.73 sqM)
[2023-01-21] MEDS: LACTOBACILLUS ACIDOPHILUS/PECT 1 EACH CAPSULE PO SCH (09:19)
[2023-01-21] MEDS: ENOXAPARIN 40 MG/0.4 ML SYRINGE SQ SCH (09:19)
[2023-01-21] MEDS: VANCOMYCIN 2,000 MG in SODIUM CHLORIDE 0.9% 500 ML 500 ML IVPB SCH (09:21)
--- NOTE | 2023-01-21 14:48 | P.PN ---
Subjective Progress Note Date: 01/21/23 CHIEF COMPLAINT: Left posterior thigh abscess HISTORY OF PRESENT ILLNESS: Patient reports improvement in her pain. Thigh abscess area decreased in size swelling and pain. No drainage at this time. Afebrile. Last WBC normal at 5.98. A1c 5.4 PHYSICAL EXAM: VITAL SIGNS: Reviewed. GENERAL: Well-developed in no acute distress. HEENT: No sclera icterus. Extraocular movements grossly intact. Moist buccal mucosa. Head is atraumatic, normocephalic. ABDOMEN: Soft. Nondistended. Nontender. NEUROLOGIC: Alert and oriented. Cranial nerves II through XII grossly intact. ASSESSMENT: 1. Left posterior thigh abscess status post prior incision and drainage by ER physician PLAN: -No surgical intervention planned -Continue antibiotics per ID service -Patient can be discharged surgical standpoint Physician Carbon Printer note has been reviewed by physician. Signing provider agrees with the documented findings, assessment, and plan of care. Objective - Vital Signs Vital signs: Vital Signs Temp 98.6 F 01/21/23 07:00 Pulse 59 L 01/21/23 07:00 Resp 16 01/21/23 07:00 BP 100/65 01/21/23 07:00 Pulse Ox 95 01/21/23 07:00 FiO2 Intake & Output 01/20/23 01/21/23 01/21/23 18:59 06:59 18:59 Intake Total 118 3400 180 Balance 118 3400 180 Intake: Intake, IV Titration 3400 Amount Sodium Chloride 0.9% 1, 2400 000 ml @ 100 mls/hr IV . Q10H MICHAEL Rx#:[id number] Vancomycin 2,000 mg In 1000 Sodium Chloride 0.9% 500 ml 500 ml @ 167 mls/hr IVPB Q12HR MICHAEL Rx#: [id number] Oral 118 180 Other: Voiding Method Toilet # Voids 1 - Labs CBC & Chem 7: 01/19/23 06:03 01/21/23 08:05
[2023-01-21] MEDS ORDERED: VANCOMYCIN 2,000 MG in SODIUM CHLORIDE 0.9% 500 ML 500 ML IVPB SCH (16:00)
--- NOTE | 2023-01-22 07:26 | P.DS ---
Providers Date of admission: 01/16/23 19:49 Attending physician: Reza Marie Consults: 01/16/23 19:31 Consult Physician Urgent Consulting Provider: Lynne Owens Consult Reason/Comments: MRSA Do you want consulting provider notified?: Yes 01/18/23 09:00 Consult Physician Routine Consulting Provider: Adrián Clemens Consult Reason/Comments: left thigh abcess, eval for I & D Do you want consulting provider notified?: Yes Primary care physician: Reinaldo Donaldson Hospital Course: Diagnoses: Left thigh cellulitis with no evidence of abscess Morbid obesity with BMI of 47.2 History of MRSA infection Hospital course: 32-year-old patient with recent presentation to ER with left leg abscess, patient was seen in the emergency department for left thigh improvement abscess on 01/11/2023. Patient had incision and drainage done and was seen in the emergency department multiple times. Patient had incision and drainage initially done on 01/11/23 and cultures obtained which came back positive for MRSA. P reviously patient was on Bactrim and was discharged on Keflex . Patient went to primary care office on 01/16/23 and was sent in for worsening erythema and further evaluation. Patient admitted to the hospital and treated with IV vancomycin and normal saline, infectious disease team and general surgery team are following closely, patient symptoms and cellulitis was significantly improved, she has small opening in the back of her thigh and the underlying induration the swelling was significantly improved compared to previous. No need for further surgical procedure per Gen. surgery team. Patient denies any other new complaints Patient was cleared for discharge by ID team and general surgery team Patient will be discharged on short course of oral Bactrim per ID team recommendation, prescription was sent to the pharmacy. Problems and management plan were discussed with the patient and he verbalized understanding and acceptance Patient was found stable and can be discharged home in guarded prognosis however he needs follow-up as an outpatient. Patient was instructed to follow up with PCP Dr. Donaldson within one week and patient agrees Patient was instructed to follow up with Dr. Owens in 1 week after discharge and she agrees to call and make her own appointment Physical exam Gen: patient is a AAOx3, no distress CVS: S1-S2, RRR, no murmur Lungs: B/L CTA, no wheezing Abdomen: soft, no distention, no tenderness, positive bowel sounds -Extremity: no leg edema or induration. Small incision about half centimeter in the back of the left thigh with minimal surrounding swelling and no erythema tenderness or purulent discharge, improving Time spent more than 35 minutes Patient Condition at Discharge: Good Plan - Discharge Summary New Discharge Prescriptions: New Acetaminophen Tab [Tylenol] 650 mg PO Q6HR PRN tab PRN Reason: Mild Pain Or Fever > 100.5 Sulfamethox-Tmp 800-160Mg [Bactrim DS 800-160 mg] 1 tab PO Q12HR #20 tab Continue Albuterol Inhaler [Ventolin Hfa Inhaler] 2 puff INHALATION RT-Q8H PRN PRN Reason: Shortness Of Breath Cariprazine HCl [Vraylar] 1.5 mg PO HS Discontinued Cephalexin [Keflex] 500 mg PO Q6HR 7 Days #28 cap No Action Sulfamethox-Tmp 800-160Mg [Bactrim DS 800-160 mg] 1 tab PO Q12HR #20 tab Discharge Medication List Sulfamethox-Tmp 800-160Mg [Bactrim DS 800-160 mg] 1 tab PO Q12HR #20 tab 11/16/21 [Rx] Albuterol Inhaler [Ventolin Hfa Inhaler] 2 puff INHALATION RT-Q8H PRN 01/16/23 [History] Cariprazine HCl [Vraylar] 1.5 mg PO HS 01/16/23 [History] Acetaminophen Tab [Tylenol] 650 mg PO Q6HR PRN tab 01/21/23 [Rx] Sulfamethox-Tmp 800-160Mg [Bactrim DS 800-160 mg] 1 tab PO Q12HR #20 tab 01/21/23 [Rx] Follow up Appointment(s)/Referral(s): Reinaldo Donaldson [Primary Care Provider] - 1-2 days Lynne Owens MD [STAFF PHYSICIAN] - 1 Week Activity/Diet/Wound Care/Special Instructions: heart healthy diet activity is restricted till you see your doctor Discharge Disposition: HOME SELF-CARE
== END 2023-01-21 14:27 | disposition home or self-care (01) | DRG 383 ==
LOC: EC 16:40 → 6NMEDSUR 19:48 → OBSVTOIN 19:49 → 6NMEDSUR 01-17 06:38
PROVIDERS: ADMIT Hospitalist; ATTEND Hospitalist
DX: L03.116 Cellulitis of left lower limb (principal); E66.01 Morbid (severe) obesity due to excess calories; Z68.42 Body mass index [BMI] 45.0-49.9, adult; E03.9 Hypothyroidism, unspecified; K52.9 Noninfective gastroenteritis and colitis, unspecified; F17.210 Nicotine dependence, cigarettes, uncomplicated; L02.416 Cutaneous abscess of left lower limb; Z86.14 Personal history of Methicillin resistant Staphylococcus aureus infection; Z91.048 Other nonmedicinal substance allergy status; Z88.1 Allergy status to other antibiotic agents; Z91.040 Latex allergy status; Z88.8 Allergy status to other drugs, medicaments and biological substances; Z79.899 Other long term (current) drug therapy
CPT/HCPCS: 36415; 80048; 80053; 80202; 81003; 81025; 82565; 83036; 85025; 85027; 87040; 96361; 96365; 96366; 96375; 99284

== ENCOUNTER 2023-05-24 09:34 | Emergency (ER) | payer OTHER ==
--- NOTE | 2023-05-24 09:57 | ED ---
URI HPI - General Chief Complaint: Upper Respiratory Infection Stated Complaint: Cough Time Seen by Provider: 05/24/23 09:40 Source: patient, RN notes reviewed Mode of arrival: ambulatory Limitations: no limitations - History of Present Illness Initial Comments: 32-year-old female presents emergency department complaint of fever chills cough congestion. Patient presents with close 2 days daughter has similar symptoms. Patient denies any shortness of breath no GI symptoms does support fever initial symptoms. No ear pain mild headache. - Related Data Home Medications Medication Instructions Recorded Confirmed Albuterol Inhaler [Ventolin Hfa 2 puff INHALATION RT-Q8H PRN 01/16/23 01/16/23 Inhaler] Cariprazine HCl [Vraylar] 1.5 mg PO HS 01/16/23 01/16/23 Previous Rx's Medication Instructions Recorded Sulfamethox-Tmp 800-160Mg [Bactrim 1 tab PO Q12HR #20 tab 11/16/21 DS 800-160 mg] Acetaminophen Tab [Tylenol] 650 mg PO Q6HR PRN tab 01/21/23 Sulfamethox-Tmp 800-160Mg [Bactrim 1 tab PO Q12HR #20 tab 01/21/23 DS 800-160 mg] Allergies Allergy/AdvReac Type Severity Reaction Status Date / Time adhesive tape Allergy Rash/Hives Verified 05/24/23 09:43 ceftriaxone sodium Allergy Rash/Hives Verified 05/24/23 09:43 [From Rocephin] FULL BODY latex Allergy Rash/Hives Verified 05/24/23 09:43 bupropion HCl AdvReac Hallucinati Verified 05/24/23 09:43 [From Wellbutrin] ons butalbital AdvReac Hallucinati Verified 05/24/23 09:43 ons Review of Systems ROS Statement: Those systems with pertinent positive or pertinent negative responses have been documented in the HPI. ROS Other: All systems not noted in ROS Statement are negative. Past Medical History Past Medical History: Asthma, Thyroid Disorder Additional Past Medical History / Comment(s): INSOMNIA; BODERLINE PERSONALITY DISORDER, back pain hx of syncope, MURMUR CHILD,BRONCHITIS,CARPAL TUNNEL,ARHTIRITS,UTI'S, MIGRAINES."herniated disc neck/back" colitis; Degenerative Disc Disease History of Any Multi-Drug Resistant Organisms: MRSA Date of last positivie culture/infection: 01/11/23 MDRO Source:: Left Leg Past Surgical History: Adenoidectomy, Tonsillectomy Additional Past Surgical History / Comment(s): teeth pulled. SEVERAL AREAS ON BODY HAD i&D FROM AREAS WITH MRSA Past Anesthesia/Blood Transfusion Reactions: No Reported Reaction Additional Past Anesthesia/Blood Transfusion Reaction / Comment(s): CLAUSTERPHOBIA Past Psychological History: Anxiety, Bipolar, Depression, PTSD Smoking Status: Current every day smoker, Vaper Past Alcohol Use History: Occasional, Rare Past Drug Use History: Marijuana - Past Family History Mother Family Medical History: Myocardial Infarction ([place]) Additional Family Medical History / Comment(s): AT AGE 45 FROM [place] Father Additional Family Medical History / Comment(s): WHEN PT WAS 9 MONTHS OLD FROM A BRAIN ANUERYSM General Exam Limitations: no limitations General appearance: alert, in no apparent distress Head exam: Present: atraumatic, normocephalic, normal inspection Eye exam: Present: normal appearance, PERRL, EOMI. Absent: scleral icterus, conjunctival injection, periorbital swelling ENT exam: Present: normal exam, normal oropharynx, mucous membranes moist Neck exam: Present: normal inspection, full ROM. Absent: tenderness, meningismus, lymphadenopathy Respiratory exam: Present: normal lung sounds bilaterally. Absent: respiratory distress, wheezes, rales, rhonchi, stridor Cardiovascular Exam: Present: regular rate, normal rhythm, normal heart sounds. Absent: systolic murmur, diastolic murmur, rubs, gallop, clicks Course Vital Signs 05/24/23 05/24/23 09:40 11:34 Temperature 98.5 F 98.8 F Pulse Rate 81 67 Respiratory 20 16 Rate Blood Pressure 119/66 125/67 O2 Sat by Pulse 96 98 Oximetry Medical Decision Making - Medical Decision Making Was pt. sent in by a medical professional or institution (, PA, PLASTICS DESIGN ENGINEER, urgent care, hospital, or fpc...) When possible be specific @ -No Did you speak to anyone other than the patient for history (EMS, parent, family, police, friend...)? What history was obtained from this source @ -No Did you review nursing and triage notes (agree or disagree)? Why? @ -I reviewed and agree with nursing and triage notes Were old charts reviewed (outside hosp., previous admission, EMS record, old EKG, old radiological studies, urgent care reports/EKG's, fpc records)? Report findings @ -No old charts were reviewed Differential Diagnosis (chest pain, altered mental status, abdominal pain women, abdominal pain men, vaginal bleeding, weakness, fever, dyspnea, syncope, headache, dizziness, GI bleed, back pain, seizure, CVA, palpatations, mental health, musculoskeletal)? @ -COVID 19, RSV, influenza, pneumonia, acute bronchitis, URI, this list is not all inclusive EKG interpreted by me (3pts min.). @ -None X-rays interpreted by me (1pt min.). @ -Chest x-ray shows no acute cardiopulmonary process CT interpreted by me (1pt min.). @ -None done U/S interpreted by me (1pt. min.). @ -None done What testing was considered but not performed or refused? (CT, X-rays, U/S, labs)? Why? @ -None What meds were considered but not given or refused? Why? @ -None Did you discuss the management of the patient with other professionals (professionals i.e. , PA, PLASTICS DESIGN ENGINEER, lab, RT, psych nurse, 7th grade social studies teacher, analytics developer, teacher, engineering officer, medical case manager)? Give summary @ -No Was smoking cessation discussed for >3mins.? @ -No Was critical care preformed (if so, how long)? @ -No Were there social determinants of health that impacted care today? How? (Homelessness, low income, unemployed, alcoholism, drug addiction, transportation, low edu. Level, literacy, decrease access to med. care, residential, rehab)? @ -No Was there de-escalation of care discussed even if they declined (Discuss DNR or withdrawal of care, Hospice)? DNR status @ -No What co-morbidities impacted this encounter? (DM, HTN, Smoking, COPD, CAD, Cancer, CVA, ARF, Chemo, Hep., AIDS, mental health diagnosis, sleep apnea, morbid obesity)? @ -None Was patient admitted / discharged? Hospital course, mention meds given and route, prescriptions, significant lab abnormalities, going to OR and other pertinent info. @Dischargepatient's viral swab, x-ray is unremarkable discharged with viral sinusitis viral URI Undiagnosed new problem with uncertain prognosis? @ -No Drug Therapy requiring intensive monitoring for toxicity (Heparin, Nitro, Insulin, Cardizem)? @ -No Were any procedures done? @ -No Diagnosis/symptom? @ -Viral sinusitis, URI Acute, or Chronic, or Acute on Chronic? @ -Acute Uncomplicated (without systemic symptoms) or Complicated (systemic symptoms)? @ -Uncomplicated Side effects of treatment? @ -No Exacerbation, Progression, or Severe Exacerbation? @ -No Poses a threat to life or bodily function? How? (Chest pain, [place], [place], pneumonia, PE, COPD, DKA, ARF, appy, cholecystitis, CVA, Diverticulitis, Homicidal, Suicidal, threat to staff... and all critical care pts) @ -No - Lab Data Lab Results 05/24/23 Range/Units 09:46 Influenza Type A (PCR) Not Detected (Not Detectd) Influenza Type B (PCR) Not Detected (Not Detectd) RSV (PCR) Not Detected (Not Detectd) SARS-CoV-2 (PCR) Not Detected (Not Detectd) Disposition Clinical Impression: Acute upper respiratory infection, Acute viral sinusitis Disposition: HOME SELF-CARE Condition: Stable Instructions (If sedation given, give patient instructions): Upper Respiratory Infection (ED) Additional Instructions: Please return to the Emergency Department if symptoms worsen or any other concerns. Is patient prescribed a controlled substance at d/c from ED?: No Referrals: Christi Tony NPC [REFERRING] - 1-2 days Time of Disposition: 11:10
--- NOTE | 2023-05-24 10:52 | XR ---
EXAMINATION TYPE: XR chest 2V DATE OF EXAM: 05/24/2023 COMPARISON: 06/30/2020 HISTORY: Chest pain TECHNIQUE: Frontal and lateral views of the chest are obtained. FINDINGS: There is no focal air space opacity. No evidence for pneumothorax. No pleural effusion. The cardiac silhouette size is within normal limits. The osseous structures are grossly intact. IMPRESSION: 1. No acute cardiopulmonary process.
[2023-05-24 12:15] VITALS: BP 125/67; PULSE 67; RESP 16; TEMP 98.8
== END 2023-05-24 11:35 | disposition home or self-care (01) ==
LOC: EC 09:34
DX: J06.9 Acute upper respiratory infection, unspecified (principal); J01.90 Acute sinusitis, unspecified; F17.290 Nicotine dependence, other tobacco product, uncomplicated; F12.90 Cannabis use, unspecified, uncomplicated; Z91.09 Other allergy status, other than to drugs and biological substances; Z91.040 Latex allergy status; Z88.8 Allergy status to other drugs, medicaments and biological substances
CPT/HCPCS: 71046; 87636; 99283

== ENCOUNTER 2023-05-30 15:29 | Emergency (ER) | payer OTHER ==
[2023-05-30 16:37] VITALS: RESP 18
--- NOTE | 2023-05-30 17:00 | ED ---
General Adult HPI - General Chief complaint: Upper Respiratory Infection Stated complaint: Nasal infection Time Seen by Provider: 05/30/23 16:21 Source: patient, RN notes reviewed, old records reviewed Mode of arrival: ambulatory Limitations: no limitations - History of Present Illness Initial comments: Patient is a 32-year-old female who presents emergency department complaining of possible facial infection. Was started on Bactrim as she does have a history of MRSA. Patient was sent in by PCP to be evaluated for possible intranasal MRSA. Patient has had upper respiratory infection. Has had dry nasal passages and had a injury to the inside of her nare. Now she has tenderness over the left side of her face and sinuses. Some mild pain with movement of the left eye. No blurry vision. No fevers or chills. Presents for further evaluation at this time. Is currently on Bactrim. - Related Data Home Medications Medication Instructions Recorded Confirmed Albuterol Inhaler [Ventolin Hfa 2 puff INHALATION RT-Q8H PRN 01/16/23 01/16/23 Inhaler] Cariprazine HCl [Vraylar] 1.5 mg PO HS 01/16/23 01/16/23 Previous Rx's Medication Instructions Recorded Sulfamethox-Tmp 800-160Mg [Bactrim 1 tab PO Q12HR #20 tab 11/16/21 DS 800-160 mg] Acetaminophen Tab [Tylenol] 650 mg PO Q6HR PRN tab 01/21/23 Sulfamethox-Tmp 800-160Mg [Bactrim 1 tab PO Q12HR #20 tab 01/21/23 DS 800-160 mg] clindamycin HCL [Cleocin] 450 mg PO TID 5 Days #45 cap 05/30/23 Allergies Allergy/AdvReac Type Severity Reaction Status Date / Time adhesive tape Allergy Rash/Hives Verified 05/24/23 09:43 ceftriaxone sodium Allergy Rash/Hives Verified 05/24/23 09:43 [From Rocephin] FULL BODY latex Allergy Rash/Hives Verified 05/24/23 09:43 bupropion HCl AdvReac Hallucinati Verified 05/24/23 09:43 [From Wellbutrin] ons butalbital AdvReac Hallucinati Verified 05/24/23 09:43 ons Review of Systems ROS Statement: Those systems with pertinent positive or pertinent negative responses have been documented in the HPI. Review of Systems: CONST: Denies fever EYES: Denies blurry vision ENT: Endorses nasal congestion, sinus pain. C/V: Denies Chest pain RESP: Denies shortness of breath GI: Denies abdominal pain : Denies dysuria SKIN: Denies rash. MSK: Denies joint pain. NEURO: Denies headache ROS Other: All systems not noted in ROS Statement are negative. Past Medical History Past Medical History: Asthma, Thyroid Disorder Additional Past Medical History / Comment(s): INSOMNIA; BODERLINE PERSONALITY DISORDER, back pain hx of syncope, MURMUR CHILD,BRONCHITIS,CARPAL TUNNEL,ARHTIRITS,UTI'S, MIGRAINES."herniated disc neck/back" colitis; Degenerat isacc Disc Disease History of Any Multi-Drug Resistant Organisms: MRSA Date of last positivie culture/infection: 01/11/23 MDRO Source:: Left Leg Past Surgical History: Adenoidectomy, Tonsillectomy Additional Past Surgical History / Comment(s): teeth pulled. SEVERAL AREAS ON BODY HAD i&D FROM AREAS WITH MRSA Past Anesthesia/Blood Transfusion Reactions: No Reported Reaction Additional Past Anesthesia/Blood Transfusion Reaction / Comment(s): CLAUSTERPHOBIA Past Psychological History: Anxiety, Bipolar, Depression, PTSD Smoking Status: Current every day smoker, Vaper Past Alcohol Use History: Occasional, Rare Past Drug Use History: Marijuana - Past Family History Mother Family Medical History: Myocardial Infarction ([place]) Additional Family Medical History / Comment(s): AT AGE 45 FROM [place] Father Additional Family Medical History / Comment(s): WHEN PT WAS 9 MONTHS OLD FROM A BRAIN ANUERYSM General Exam - General Exam Comments Initial Comments: General: Appears in no acute distress. HEAD: Normal with no signs of head trauma. EYES: PERRLA, EOMI, conjunctiva normal, no discharge. Pulls are 3 mm and equal bilaterally. ENT: Hearing grossly intact, normal oropharynx. Tenderness to palpation over the left maxillary sinus. No significant edema or erythema present. RESPIRATORY: Clear breath sounds bilaterally. No wheezes, rales, or rhonchi. C/V: Regular rate and rhythm. S1 and S2 auscultated, no edema, peripheral pulses 2+ and intact throughout ABD: Abd is soft, nontender, nondistended EXT: Normal range of motion, no obvious deformity SKIN: No rashes or lesions observed on exposed skin. NEURO: Alert and oriented x 4. Cranial nerves II-XII intact. No focal sensory or strength deficits. Limitations: no limitations Course Vital Signs 05/30/23 05/30/23 15:58 18:49 Temperature 98.0 F 98.7 F Pulse Rate 86 94 Respiratory 18 18 Rate Blood Pressure 127/83 133/65 O2 Sat by Pulse 97 93 L Oximetry Medical Decision Making - Medical Decision Making Was pt. sent in by a medical professional or institution (GENEVIEVE Mason, MARKET RISK SPECIALIST, urgent care, hospital, or half-way...) When possible be specific @ -Sent by PCP for evaluation for facial infection Did you speak to anyone other than the patient for history (EMS, parent, family, police, friend...)? What history was obtained from this source @ -No Did you review nursing and triage notes (agree or disagree)? Why? @ -I reviewed and agree with nursing and triage notes Were old charts reviewed (outside hosp., previous admission, EMS record, old EKG, old radiological studies, urgent care reports/EKG's, half-way records)? Report findings @ -Old charts reviewed Differential Diagnosis (chest pain, altered mental status, abdominal pain women, abdominal pain men, vaginal bleeding, weakness, fever, dyspnea, syncope, headache, dizziness, GI bleed, back pain, seizure, CVA, palpatations, mental health, musculoskeletal)? @ -Orbital cellulitis, periorbital cellulitis, MRSA infection, sinusitis this list is not all inclusive. EKG interpreted by me (3pts min.). @ -None done X-rays interpreted by me (1pt min.). @ -None done CT interpreted by me (1pt min.). @ -CT imaging shows soft tissue swelling over the left maxilla near the lip but no other obvious acute process. U/S interpreted by me (1pt. min.). @ -None done What testing was considered but not performed or refused? (CT, X-rays, U/S, la bs)? Why? @ -None What meds were considered but not given or refused? Why? @ -None Did you discuss the management of the patient with other professionals (professionals i.e. GENEVIEVE Mason, MARKET RISK SPECIALIST, lab, RT, psych nurse, licensed master social worker, customer loyalty representative, teacher, department of natural resources officer, oil field caser)? Give summary @ -No Was smoking cessation discussed for >3mins.? @ -No Was critical care preformed (if so, how long)? @ -No Were there social determinants of health that impacted care today? How? (Homelessness, low income, unemployed, alcoholism, drug addiction, transportation, low edu. Level, literacy, decrease access to med. care, snf, rehab)? @ -No Was there de-escalation of care discussed even if they declined (Discuss DNR or withdrawal of care, Hospice)? DNR status @ -No What co-morbidities impacted this encounter? (DM, HTN, Smoking, COPD, CAD, Cancer, CVA, ARF, Chemo, Hep., AIDS, mental health diagnosis, sleep apnea, morbid obesity)? @ -None Was patient admitted / discharged? Hospital course, mention meds given and route, prescriptions, significant lab abnormalities, going to OR and other pertinent info. @ -Based on patient's presentation and physical exam, we will obtain basic labs, as well as CT imaging of the face to evaluate for orbital cellulitis. Patient was in agreement this plan. Vital signs are within acceptable limits. She will be given Toradol as well as a dose of IV Decadron and IV fluids. Vital signs are within acceptable limits. Patient was in agreement this plan Patient's laboratory studies unremarkable. CT imaging unremarkable, possibly mild cellulitis. I discussed results with patient. She will be given a dose of clindamycin and a prescription to take clindamycin with her Bactrim. She was in agreement this plan. Recommended follow-up with her PCP. No indications for admission at this point. She was in agreement this plan. I will provide the patient with a prescription for clindamycin. I instructed the patient to follow up with their PCP in the next 1-3 days.. I explained that the patient should return to the emergency department if they experience any worsening symptoms. Strict return precautions were discussed with the patient. The patient expressed understanding of these instructions. I answered all questions that the patient had. The patient was discharged home in good condition with their prescriptions and follow up information. Undiagnosed new problem with uncertain prognosis? @ -No Drug Therapy requiring intensive monitoring for toxicity (Heparin, Nitro, Insulin, Cardizem)? @ -No Were any procedures done? @ -No Diagnosis/symptom? @ -Cellulitis Acute, or Chronic, or Acute on Chronic? @ -Acute Uncomplicated (without systemic symptoms) or Complicated (systemic symptoms)? @ -uncomplicated Side effects of treatment? @ -None Exacerbation, Progression, or Severe Exacerbation] @ -No Poses a threat to life or bodily function? @ -Unlikely - Lab Data Result diagrams: 05/30/23 16:48 05/30/23 16:48 Lab Results 05/30/23 05/30/23 05/30/23 Range/Units 16:48 16:48 16:48 WBC 9.1 (3.8-10.6) k/uL RBC 4.30 (3.80-5.40) m/uL Hgb 12.8 (11.4-16.0) gm/dL Hct 38.9 (34.0-46.0) % MCV 90.5 (80.0-100.0) fL MCH 29.7 (25.0-35.0) pg MCHC 32.8 (31.0-37.0) g/dL RDW 12.1 (11.5-15.5) % Plt Count 234 (150-450) k/uL MPV 9.0 Neutrophils % 54 % Lymphocytes % 34 % Monocytes % 5 % Eosinophils % 2 % Basophils % 1 % Neutrophils # 4.9 (1.3-7.7) k/uL Lymphocytes # 3.1 (1.0-4.8) k/uL Monocytes # 0.5 (0-1.0) k/uL Eosinophils # 0.2 (0-0.7) k/uL Basophils # 0.1 (0-0.2) k/uL Sodium 135 L (137-145) mmol/L Potassium 4.1 (3.5-5.1) mmol/L Chloride 107 (98-107) mmol/L Carbon Dioxide 21 L (22-30) mmol/L Anion Gap 7 mmol/L BUN 7 (7-17) mg/dL Creatinine 0.65 (0.52-1.04) mg/dL Est GFR (CKD-EPI)AfAm >90 (>60 ml/min/1.73 sqM) Est GFR (CKD-EPI)NonAf >90 (>60 ml/min/1.73 sqM) Glucose 105 H (74-99) mg/dL Plasma Lactic Acid Eliu 1.2 (0.7-2.0) mmol/L Calcium 9.0 (8.4-10.2) mg/dL Disposition Clinical Impression: Cellulitis Disposition: HOME SELF-CARE Condition: Good Instructions (If sedation given, give patient instructions): Cellulitis (ED) Prescriptions: clindamycin HCL [Cleocin] 450 mg PO TID 5 Days #45 cap Is patient prescribed a controlled substance at d/c from ED?: No Referrals: Reinaldo Donaldson [Primary Care Provider] - 1-2 days Time of Disposition: 18:39
[2023-05-30] MEDS: DEXAMETHASONE SOD PHOSPHATE 10 MG/ML 1 ML VIAL IVP STA (17:18)
[2023-05-30] MEDS: KETOROLAC 15 MG/ML 1 ML VIAL IVP STA (17:19)
[2023-05-30] MEDS: SODIUM CHLORIDE 0.9% 1,000 ML IV STA (17:20)
[2023-05-30 17:37] LABS: Basophils # (A) 0.1 k/uL (0-0.2); Basophils % (A) 1 %; Eosinophils # (A) 0.2 k/uL (0-0.7); Eosinophils % (A) 2 %; HCT 38.9 % (34.0-46.0); HGB 12.8 gm/dL (11.4-16.0); Lymphocytes # (A) 3.1 k/uL (1.0-4.8); Lymphocytes % (A) 34 %; MCH 29.7 pg (25.0-35.0); MCHC 32.8 g/dL (31.0-37.0); MCV 90.5 fL (80.0-100.0); Monocytes # (A) 0.5 k/uL (0-1.0); Monocytes % (A) 5 %; Neutrophils # (A) 4.9 k/uL (1.3-7.7); Neutrophils % (A) 54 %; Platelet Count 234 k/uL (150-450); RDW 12.1 % (11.5-15.5); WBC 9.1 k/uL (3.8-10.6)
[2023-05-30 17:57] LABS: African American GFR (CKD) >90 (>60 ml/min/1.73 sqM); Anion Gap 7 mmol/L; Blood Urea Nitrogen 7 mg/dL (7-17); Carbon Dioxide 21 mmol/L (22-30); Chloride 107 mmol/L (98-107); Glucose 105 mg/dL (74-99); Non-African American GFR(CKD) >90 (>60 ml/min/1.73 sqM); Potassium 4.1 mmol/L (3.5-5.1); Sodium 135 mmol/L (137-145)
--- NOTE | 2023-05-30 18:04 | CT ---
EXAMINATION TYPE: CT facial bones w con DATE OF EXAM: 05/30/2023 COMPARISON: HISTORY: facial swelling CT DLP: 800.8 mGycm Automated exposure control for dose reduction was used. CONTRAST: CT scan of the facial bones is performed with IV Contrast, patient injected with 100 ml mL of Isovue 300. TECHNIQUE: CT scan of the sinuses is performed without contrast, axial images are obtained, coronal r eformatted images are also reviewed. FINDINGS: The paranasal sinuses including the frontal, ethmoid, sphenoid, and maxillary sinuses bila terally are well-aerated without abnormal opacification. The ostiomeatal complex is patent bilateral ly on the coronal images. Visualized portion of mastoid air cells show no abnormal opacification The intraorbital contents are normal and symmetric. There is no preseptal or retro-orbital soft tissu e swelling. There is increased density within the soft tissues overlying the head involving the upper lip. IMPRESSION: 1. No abnormality of the orbits are preseptal soft tissues. 2. Well aerated paranasal sinuses without inflammation. 3. Soft tissue edema overlying the anterior midline maxilla, and upper lip.
[2023-05-30] MEDS: CLINDAMYCIN 150 MG CAP PO STA (18:48)
[2023-05-30 19:13] VITALS: BP 133/65; PULSE 94; TEMP 98.7
== END 2023-05-30 18:52 | disposition home or self-care (01) ==
LOC: EC 15:29
DX: J34.0 Abscess, furuncle and carbuncle of nose (principal); F17.290 Nicotine dependence, other tobacco product, uncomplicated; Z88.1 Allergy status to other antibiotic agents; Z88.8 Allergy status to other drugs, medicaments and biological substances; Z91.09 Other allergy status, other than to drugs and biological substances; Z91.040 Latex allergy status
CPT/HCPCS: 36415; 80048; 83605; 85025; 70487; 99284; 96374; 96375; 96361 ×2; J1100; J1885; Q9967

== ENCOUNTER 2023-08-15 09:21 | Emergency (ER) | payer OTHER ==
[2023-08-15 09:27] VITALS: RESP 18; TEMP 97.7
[2023-08-15] MEDS: METOCLOPRAMIDE 5 MG/ML 2 ML VIAL IVP STA (09:45)
[2023-08-15] MEDS: KETOROLAC 15 MG/ML 1 ML VIAL IVP STA (09:46)
[2023-08-15] MEDS: diphenhydrAMINE 50 MG/ML 1 ML VIAL IVP STA (09:46)
[2023-08-15] MEDS: SODIUM CHLORIDE 0.9% 2,000 ML IV STA (09:47)
--- NOTE | 2023-08-15 09:55 | ED ---
Abdominal Pain HPI - General Chief Complaint: Abdominal Pain Stated Complaint: Abd Pain, Vomiting Time Seen by Provider: 08/15/23 09:27 Source: patient, RN notes reviewed Mode of arrival: ambulatory Limitations: no limitations - History of Present Illness Initial Comments: 32-year-old female presents emergency department complaint of abdominal bloating, nausea and vomiting. Patient states that she woke up this morning to get ready for work and became nauseous and started vomiting states that she feels very gassy. Patient denies any diarrhea constipation no dysuria denies any chance of . Patient states that she felt fine yesterday no reports of fevers or chills. No sick contacts - Related Data Home Medications Medication Instructions Recorded Confirmed Albuterol Inhaler [Ventolin Hfa 2 puff INHALATION RT-Q8H PRN 01/16/23 01/16/23 Inhaler] Cariprazine HCl [Vraylar] 1.5 mg PO HS 01/16/23 01/16/23 Previous Rx's Medication Instructions Recorded Sulfamethox-Tmp 800-160Mg [Bactrim 1 tab PO Q12HR #20 tab 11/16/21 DS 800-160 mg] Acetaminophen Tab [Tylenol] 650 mg PO Q6HR PRN tab 01/21/23 Sulfamethox-Tmp 800-160Mg [Bactrim 1 tab PO Q12HR #20 tab 01/21/23 DS 800-160 mg] clindamycin HCL [Cleocin] 450 mg PO TID 5 Days #45 cap 05/30/23 Famotidine [Pepcid] 20 mg PO BID #14 tablet 08/15/23 Nitrofurantoin Monohyd/M-Cryst 100 mg PO Q12HR #14 cap 08/15/23 [Macrobid] Ondansetron Odt [Zofran Odt] 4 mg PO Q8HR PRN #10 tab 08/15/23 Allergies Allergy/AdvReac Type Severity Reaction Status Date / Time adhesive tape Allergy Rash/Hives Verified 08/15/23 09:27 ceftriaxone sodium Allergy Rash/Hives Verified 08/15/23 09:27 [From Rocephin] FULL BODY latex Allergy Rash/Hives Verified 08/15/23 09:27 bupropion HCl AdvReac Hallucinati Verified 08/15/23 09:27 [From Wellbutrin] ons butalbital AdvReac Hallucinati Verified 08/15/23 09:27 ons Review of Systems ROS Statement: Those systems with pertinent positive or pertinent negative responses have been documented in the HPI. ROS Other: All systems not noted in ROS Statement are negative. Past Medical History Past Medical History: Asthma, Thyroid Disorder Additional Past Medical History / Comment(s): INSOMNIA; BODERLINE PERSONALITY DISORDER, back pain hx of syncope, MURMUR CHILD,BRONCHITIS,CARPAL TUNNEL,ARHTIRITS,UTI'S, MIGRAINES."herniated disc neck/back" colitis; Degenerative Disc Disease History of Any Multi-Drug Resistant Organisms: MRSA Date of last positivie culture/infection: 01/11/23 MDRO Source:: Left Leg Past Surgical History: Adenoidectomy, Tonsillectomy Additional Past Surgical History / Comment(s): teeth pulled. SEVERAL AREAS ON BODY HAD i&D FROM AREAS WITH MRSA Past Anesthesia/Blood Transfusion Reactions: No Reported Reaction Additional Past Anesthesia/Blood Transfusion Reaction / Comment(s): CLAUSTERPHOBIA Past Psychological History: Anxiety, Bipolar, Depression, PTSD Smoking Status: Current every day smoker, Vaper Past Alcohol Use History: Occasional, Rare Past Drug Use History: Marijuana - Past Family History Mother Family Medical History: Myocardial Infarction ([place]) Additional Family Medical History / Comment(s): AT AGE 45 FROM [place] Father Additional Family Medical History / Comment(s): WHEN PT WAS 9 MONTHS OLD FROM A BRAIN ANUERYSM General Exam Limitations: no limitations General appearance: alert, in no apparent distress Head exam: Present: atraumatic, normocephalic, normal inspection Eye exam: Present: normal appearance, PERRL, EOMI. Absent: scleral icterus, conjunctival injection, periorbital swelling ENT exam: Present: normal exam, normal oropharynx, mucous membranes moist Neck exam: Present: normal inspection, full ROM. Absent: tenderness, meningismus, lymphadenopathy Respiratory exam: Present: normal lung sounds bilaterally. Absent: respiratory distress, wheezes, rales, rhonchi, stridor Cardiovascular Exam: Present: regular rate, normal rhythm, normal heart sounds. Absent: systolic murmur, diastolic murmur, rubs, gallop, clicks GI/Abdominal exam: Present: soft, tenderness (Minimal diffuse), normal bowel sounds. Absent: distended, guarding, rebound, rigid Neurological exam: Present: alert, oriented X3, CN II-XII intact, reflexes normal. Absent: motor sensory deficit Psychiatric exam: Present: normal affect, normal mood Course Vital Signs 08/15/23 09:23 Temperature 97.7 F Pulse Rate 76 Respiratory 18 Rate Blood Pressure 127/84 O2 Sat by Pulse 96 Oximetry Medical Decision Making - Medical Decision Making Was pt. sent in by a medical professional or institution (, PA, DIRECTOR OF RESEARCH CENTER, urgent care, hospital, or fci...) When possible be specific @ -No Did you speak to anyone other than the patient for history (EMS, parent, family, police, friend...)? What history was obtained from this source @ -No Did you review nursing and triage notes (agree or disagree)? Why? @ -I reviewed and agree with nursing and triage notes Were old charts reviewed (outside hosp., previous admission, EMS record, old EKG, old radiological studies, urgent care reports/EKG's, fci records)? Report findings @ -No old charts were reviewed Differential Diagnosis (chest pain, altered mental status, abdominal pain women, abdominal pain men, vaginal bleeding, weakness, fever, dyspnea, syncope, headache, dizziness, GI bleed, back pain, seizure, CVA, palpatations, mental health, musculoskeletal)? @ -Differential Abdominal Pain Women: Appendicitis, Cholecystitis, diverticulosis, ischemic bowel, pancreatitis, hepatitis, UTI, gastroenteritis, AAA, incarcerated hernia, bowel obstruction, constipation, inflammatory bowel, hepatitis, peptic ulcer disease, splenic infarction, perforated viscus, vulvitis, ovarian torsion, PID, kidney stone, placenta abruption, this is not meant to be an all-inclusive list EKG interpreted by me (3pts min.). @ -None X-rays interpreted by me (1pt min.). @ -None done CT interpreted by me (1pt min.). @ -None done U/S interpreted by me (1pt. min.). @ -None done What testing was considered but not performed or refused? (CT, X-rays, U/S, labs)? Why? @ -None What meds were considered but not given or refused? Why? @ -None Did you discuss the management of the patient with other professionals (pr ofessionals i.e. , GENEVIEVE, DIRECTOR OF [facility] C[facility], lab, RT, psych nurse, socially responsible investment adviser, mechanic/welder, teacher, hearing officer, case investigator)? Give summary @ -No Was smoking cessation discussed for >3mins.? @ -No Was critical care preformed (if so, how long)? @ -No Were there social determinants of health that impacted care today? How? (Homelessness, low income, unemployed, alcoholism, drug addiction, transportation, low edu. Level, literacy, decrease access to med. care, penitentiary, rehab)? @ -No Was there de-escalation of care discussed even if they declined (Discuss DNR or withdrawal of care, Hospice)? DNR status @ -No What co-morbidities impacted this encounter? (DM, HTN, Smoking, COPD, CAD, Cancer, CVA, ARF, Chemo, Hep., AIDS, mental health diagnosis, sleep apnea, morbid obesity)? @ -None Was patient admitted / discharged? Hospital course, mention meds given and route, prescriptions, significant lab abnormalities, going to OR and other pertinent info. @ -[Charge patient presented for nausea vomiting. Patient vomiting has improved, nausea resolved patient does have evidence of UTI nitrite positive urine discharged on oral antibiotics with antibiotics and antiacids. Return parameters luis. Undiagnosed new problem with uncertain prognosis? @ -No Drug Therapy requiring intensive monitoring for toxicity (Heparin, Nitro, Insulin, Cardizem)? @ -No Were any procedures done? @ -No Diagnosis/symptom? @ -Gastroenteritis, UTI Acute, or Chronic, or Acute on Chronic? @ -Acute Uncomplicated (without systemic symptoms) or Complicated (systemic symptoms)? @ -Uncomplicated Side effects of treatment? @ -No Exacerbation, Progression, or Severe Exacerbation? @ -No Poses a threat to life or bodily function? How? (Chest pain, USA, NH, pneumonia, PE, COPD, DKA, ARF, appy, cholecystitis, CVA, Diverticulitis, Homicidal, S uicidal, threat to staff... and all critical care pts) @ -No - Lab Data Result diagrams: 08/15/23 09:44 08/15/23 09:44 Lab Results 08/15/23 08/15/23 08/15/23 Range/Units 09:44 09:44 09:44 WBC 4.5 (3.8-10.6) k/uL RBC 4.38 (3.80-5.40) m/uL Hgb 13.5 (11.4-16.0) gm/dL Hct 38.7 (34.0-46.0) % MCV 88.5 (80.0-100.0) fL MCH 30.9 (25.0-35.0) pg MCHC 35.0 (31.0-37.0) g/dL RDW 12.1 (11.5-15.5) % Plt Count 220 (150-450) k/uL MPV 9.9 Neutrophils % 43 % Lymphocytes % 43 % Monocytes % 6 % Eosinophils % 3 % Basophils % 1 % Neutrophils # 2.0 (1.3-7.7) k/uL Lymphocytes # 1.9 (1.0-4.8) k/uL Monocytes # 0.3 (0-1.0) k/uL Eosinophils # 0.2 (0-0.7) k/uL Basophils # 0.1 (0-0.2) k/uL Sodium (137-145) mmol/L Potassium (3.5-5.1) mmol/L Chloride (98-107) mmol/L Carbon Dioxide (22-30) mmol/L Anion Gap mmol/L BUN (7-17) mg/dL Creatinine (0.52-1.04) mg/dL Est GFR (CKD-EPI)AfAm (>60 ml/min/1.73 sqM) Est GFR (CKD-EPI)NonAf (>60 ml/min/1.73 sqM) Glucose (74-99) mg/dL Calcium (8.4-10.2) mg/dL Total Bilirubin (0.2-1.3) mg/dL AST (14-36) U/L ALT (4-34) U/L Alkaline Phosphatase (38-126) U/L Total Protein (6.3-8.2) g/dL Albumin (3.5-5.0) g/dL Lipase (23-300) U/L Urine Color Yellow Urine Appearance Cloudy H (Clear) Urine pH 6.0 (5.0-8.0) Ur Specific [place] 1.021 (1.001-1.035) Urine Protein Trace H (Negative) Urine Glucose (UA) Negative (Negative) Urine Ketones Negative (Negative) Urine Blood Negative (Negative) Urine Nitrite Positive H (Negative) Urine Bilirubin Negative (Negative) Urine Urobilinogen <2.0 (<2.0) mg/dL Ur Leukocyte Esterase Moderate H (Negative) Urine RBC 2 (0-5) /hpf Urine WBC 18 H (0-5) /hpf Ur Squamous Epith Cells 8 H (0-4) /hpf Urine Bacteria Rare H (None) /hpf Urine Mucus Occasional H (None) /hpf Urine HCG, Qual Not Detected (Not Detectd) 08/15/23 Range/Units 09:44 WBC (3.8-10.6) k/uL RBC (3.80-5.40) m/uL Hgb (11.4-16.0) gm/dL Hct (34.0-46.0) % MCV (80.0-100.0) fL MCH (25.0-35.0) pg MCHC (31.0-37.0) g/dL RDW (11.5-15.5) % Plt Count (150-450) k/uL MPV Neutrophils % % Lymphocytes % % Monocytes % % Eosinophils % % Basophils % % Neutrophils # (1.3-7.7) k/uL Lymphocytes # (1.0-4.8) k/uL Monocytes # (0-1.0) k/uL Eosinophils # (0-0.7) k/uL Basophils # (0-0.2) k/uL Sodium 139 (137-145) mmol/L Potassium 4.1 (3.5-5.1) mmol/L Chloride 109 H (98-107) mmol/L Carbon Dioxide 25 (22-30) mmol/L Anion Gap 5 mmol/L BUN 13 (7-17) mg/dL Creatinine 0.68 (0.52-1.04) mg/dL Est GFR (CKD-EPI)AfAm >90 (>60 ml/min/1.73 sqM) Est GFR (CKD-EPI)NonAf >90 (>60 ml/min/1.73 sqM) Glucose 101 H (74-99) mg/dL Calcium 9.0 (8.4-10.2) mg/dL Total Bilirubin 0.3 (0.2-1.3) mg/dL AST 27 (14-36) U/L ALT 42 H (4-34) U/L Alkaline Phosphatase 44 (38-126) U/L Total Protein 6.1 L (6.3-8.2) g/dL Albumin 4.0 (3.5-5.0) g/dL Lipase 153 (23-300) U/L Urine Color Urine Appearance (Clear) Urine pH (5.0-8.0) Ur Specific [place] (1.001-1.035) Urine Protein (Negative) Urine Glucose (UA) (Negative) Urine Ketones (Negative) Urine Blood (Negative) Urine Nitrite (Negative) Urine Bilirubin (Negative) Urine Urobilinogen (<2.0) mg/dL Ur Leukocyte Esterase (Negative) Urine RBC (0-5) /hpf Urine WBC (0-5) /hpf Ur Squamous Epith Cells (0-4) /hpf Urine Bacteria (None) /hpf Urine Mucus (None) /hpf Urine HCG, Qual (Not Detectd) Disposition Clinical Impression: UTI (urinary tract infection), Gastroenteritis Disposition: HOME SELF-CARE Condition: Stable Instructions (If sedation given, give patient instructions): Gastroenteritis (ED) Additional Instructions: Please return to the Emergency Department if symptoms worsen or any other concerns. Prescriptions: Nitrofurantoin Monohyd/M-Cryst [Macrobid] 100 mg PO Q12HR #14 cap Famotidine [Pepcid] 20 mg PO BID #14 tablet Ondansetron Odt [Zofran Odt] 4 mg PO Q8HR PRN #10 tab PRN Reason: Nausea Is patient prescribed a controlled substance at d/c from ED?: No Referrals: Reinaldo Donaldson [Primary Care Provider] - 1-2 days Time of Disposition: 10:21
[2023-08-15 09:57] LABS: Basophils # (A) 0.1 k/uL (0-0.2); Basophils % (A) 1 %; Eosinophils # (A) 0.2 k/uL (0-0.7); Eosinophils % (A) 3 %; HCT 38.7 % (34.0-46.0); HGB 13.5 gm/dL (11.4-16.0); Lymphocytes # (A) 1.9 k/uL (1.0-4.8); Lymphocytes % (A) 43 %; MCH 30.9 pg (25.0-35.0); MCV 88.5 fL (80.0-100.0); Mean Platelet Volume 9.9; Monocytes # (A) 0.3 k/uL (0-1.0); Monocytes % (A) 6 %; Neutrophils % (A) 43 %; Platelet Count 220 k/uL (150-450); RBC 4.38 m/uL (3.80-5.40); RDW 12.1 % (11.5-15.5); WBC 4.5 k/uL (3.8-10.6)
[2023-08-15 10:12] LABS: ALT 42 U/L (4-34); AST 27 U/L (14-36); African American GFR (CKD) >90 (>60 ml/min/1.73 sqM); Alkaline Phosphatase 44 U/L (38-126); Anion Gap 5 mmol/L; Appearance,Urine Cloudy (Clear); Bacteria,Urine Rare /hpf; Bilirubin,Urine Negative (Negative); Blood Urea Nitrogen 13 mg/dL (7-17); Blood,Urine Negative (Negative); Carbon Dioxide 25 mmol/L (22-30); Chloride 109 mmol/L (98-107); Color,Urine Yellow; Glucose 101 mg/dL (74-99); Glucose,Urine (UA) Negative (Negative); Ketones,Urine Negative (Negative); Leukocyte Esterase,Urine Moderate (Negative); Lipase 153 U/L (23-300); Mucus,Urine Occasional /hpf; Nitrite,Urine Positive (Negative); Non-African American GFR(CKD) >90 (>60 ml/min/1.73 sqM); Potassium 4.1 mmol/L (3.5-5.1); Protein,Urine Trace (Negative); RBC,Urine 2 /hpf (0-5); Sodium 139 mmol/L (137-145); Specific Gravity,Urine 1.021 (1.001-1.035); Squamous Epithelial Cell,Urine 8 /hpf (0-4); Total Bilirubin 0.3 mg/dL (0.2-1.3); Total Protein 6.1 g/dL (6.3-8.2); Urobilinogen,Urine <2.0 mg/dL (<2.0); WBC,Urine 18 /hpf (0-5)
[2023-08-15] MEDS: FAMOTIDINE 20 MG/2 ML VIAL IV STA (10:35)
[2023-08-15] MEDS: MAG HYDROX/AL HYDROX/SIMETH 30 ML, HYOSCYAMINE ELIXIR 10 ML, LIDOCAINE VISCOUS 2% 10 ML PO STA (10:36)
[2023-08-15 11:12] VITALS: BP 118/64; PULSE 62
== END 2023-08-15 11:11 | disposition home or self-care (01) ==
LOC: EC 09:21
DX: K52.9 Noninfective gastroenteritis and colitis, unspecified (principal); N39.0 Urinary tract infection, site not specified; F17.290 Nicotine dependence, other tobacco product, uncomplicated; Z91.09 Other allergy status, other than to drugs and biological substances; Z88.1 Allergy status to other antibiotic agents; Z91.040 Latex allergy status; Z88.8 Allergy status to other drugs, medicaments and biological substances
CPT/HCPCS: 36415; 80053; 83690; 85025; 81001; 81025; 99284; 96374; 96375 ×3; 96361; J1200; J2765; J3490; J1885

== ENCOUNTER 2023-10-08 14:48 | Emergency (ER) | payer OTHER ==
[2023-10-08 14:56] VITALS: TEMP 98.2
--- NOTE | 2023-10-08 16:48 | ED ---
General Adult HPI - General Chief complaint: Headache Stated complaint: headaches Time Seen by Provider: 10/08/23 15:54 Source: patient, RN notes reviewed, old records reviewed Mode of arrival: ambulatory Limitations: no limitations - History of Present Illness Initial comments: 32 -year-old female presenting for evaluation of headache. Patient's headache is located on the top of her head. Has been present for the past 3 days. She has previous history of migraine headache. Headache was gradual in onset. She does admit that she has not been drinking much water. She has light sensitivity. No significant vomiting. No focal numbness or weakness. - Related Data Home Medications Medication Instructions Recorded Confirmed Albuterol Inhaler [Ventolin Hfa 2 puff INHALATION RT-Q8H PRN 01/16/23 01/16/23 Inhaler] Cariprazine HCl [Vraylar] 1.5 mg PO HS 01/16/23 01/16/23 Previous Rx's Medication Instructions Recorded Sulfamethox-Tmp 800-160Mg [Bactrim 1 tab PO Q12HR #20 tab 11/16/21 DS 800-160 mg] Acetaminophen Tab [Tylenol] 650 mg PO Q6HR PRN tab 01/21/23 Sulfamethox-Tmp 800-160Mg [Bactrim 1 tab PO Q12HR #20 tab 01/21/23 DS 800-160 mg] clindamycin HCL [Cleocin] 450 mg PO TID 5 Days #45 cap 05/30/23 Famotidine [Pepcid] 20 mg PO BID #14 tablet 08/15/23 Nitrofurantoin Monohyd/M-Cryst 100 mg PO Q12HR #14 cap 08/15/23 [Macrobid] Ondansetron Odt [Zofran Odt] 4 mg PO Q8HR PRN #10 tab 08/15/23 Allergies Allergy/AdvReac Type Severity Reaction Status Date / Time adhesive tape Allergy Rash/Hives Verified 10/08/23 14:56 ceftriaxone sodium Allergy Rash/Hives Verified 10/08/23 14:56 [From Rocephin] FULL BODY latex Allergy Rash/Hives Verified 10/08/23 14:56 bupropion HCl AdvReac Hallucinati Verified 10/08/23 14:56 [From Wellbutrin] ons butalbital AdvReac Hallucinati Verified 10/08/23 14:56 ons Review of Systems ROS Statement: Those systems with pertinent positive or pertinent negative responses have been documented in the HPI. ROS Other: All systems not noted in ROS Statement are negative. Past Medical History Past Medical History: Asthma, Thyroid Disorder Additional Past Medical History / Comment(s): INSOMNIA; BODERLINE PERSONALITY DISORDER, back pain hx of syncope, MURMUR CHILD,BRONCHITIS,CARPAL TUNNEL,ARHTIRITS,UTI'S, MIGRAINES."herniated disc neck/back" colitis; Degenerative Disc Disease History of Any Multi-Drug Resistant Organisms: MRSA Date of last positivie culture/infection: 01/11/23 MDRO Source:: Left Leg Past Surgical History: Adenoidectomy, Tonsillectomy Additional Past Surgical History / Comment(s): teeth pulled. SEVERAL AREAS ON BODY HAD i&D FROM AREAS WITH MRSA Past Anesthesia/Blood Transfusion Reactions: No Reported Reaction Additional Past Anesthesia/Blood Transfusion Reaction / Comment(s): CLAUSTERPHOBIA Past Psychological History: Anxiety, Bipolar, Depression, PTSD Smoking Status: Current every day smoker, Vaper Past Alcohol Use History: Occasional, Rare Past Drug Use History: Marijuana - Past Family History Mother Family Medical History: Myocardial Infarction ([place]) Additional Family Medical History / Comment(s): AT AGE 45 FROM [place] Father Additional Family Medical History / Comment(s): WHEN PT WAS 9 MONTHS OLD FROM A BRAIN ANUERYSM General Exam Limitations: no limitations General appearance: alert, in no apparent distress Head exam: Present: atraumatic, normocephalic Eye exam: Present: normal appearance, PERRL ENT exam: Present: mucous membranes dry Neck exam: Present: normal inspection. Absent: tenderness, meningismus Respiratory exam: Present: normal lung sounds bilaterally. Absent: respiratory distress, wheezes Cardiovascular Exam: Present: regular rate, normal rhythm GI/Abdominal exam: Present: soft. Absent: distended, tenderness Extremities exam: Present: normal inspection Neurological exam: Present: alert, oriented X3, CN II-XII intact. Absent: motor sensory deficit Psychiatric exam: Present: normal affect, normal mood Skin exam: Present: warm, dry, intact Course Vital Signs 10/08/23 14:53 Temperature 98.2 F Pulse Rate 83 Respiratory 18 Rate Blood Pressure 124/78 O2 Sat by Pulse 99 Oximetry - Reevaluation(s) Reevaluation #1: 10/08/23 18:51 Patient reevaluated, significantly improved. Patient eager for discharge. Medical Decision Making - Medical Decision Making Was pt. sent in by a medical professional or institution (GENEVIEVE Mason, CAMERA MECHANIC, urgent care, hospital, or usp...) When possible be specific @ -No Did you speak to anyone other than the patient for history (EMS, parent, family, police, friend...)? What history was obtained from this source @ -No Did you review nursing and triage notes (agree or disagree)? Why? @ -I reviewed and agree with nursing and triage notes Were old charts reviewed (outside hosp., previous admission, EMS record, old EKG, old radiological studies, urgent care reports/EKG's, usp records)? Report findings @ -No old charts were reviewed Differential Headache: Migraine, tension, cluster, carbon monoxide, central venous thrombosis, pension karma temporal arteritis, acute closure glaucoma, intercranial hemorrhage, m astoiditis, sinusitis, head injury, this is not meant to be an all-inclusive list. EKG interpreted by me (3pts min.). @ -As above X-rays interpreted by me (1pt min.). @ -None done CT interpreted by me (1pt min.). @ -None done U/S interpreted by me (1pt. min.). @ -None done What testing was considered but not performed or refused? (CT, X-rays, U/S, labs)? Why? @ -None What meds were considered but not given or refused? Why? @ -None Did you discuss the management of the patient with other professionals (professionals i.e. GENEVIEVE Mason, CAMERA MECHANIC, lab, RT, psych nurse, social professionals, equal opportunity director, teacher, electoral officer, family independence case manager)? Give summary @ -No Was smoking cessation discussed for >3mins.? @ -No Was critical care preformed (if so, how long)? @ -No Were there social determinants of health that impacted care today? How? (Homelessness, low income, unemployed, alcoholism, drug addiction, [place]ussell sportation, low edu. Level, literacy, decrease access to med. care, snf, rehab)? @ -No Was there de-escalation of care discussed even if they declined (Discuss DNR or withdrawal of care, Hospice)? DNR status @ -No What co-morbidities impacted this encounter? (DM, HTN, Smoking, COPD, CAD, Cancer, CVA, ARF, Chemo, Hep., AIDS, mental health diagnosis, sleep apnea, morbid obesity)? @ -History of headache. Was patient admitted / discharged? Hospital course, mention meds given and route, prescriptions, significant lab abnormalities, going to OR and other pertinent info. @32-year-old presenting with gradual onset headache. Patient is hemodynamically stable with normal neurologic exam. Patient given medications with significant improvement in headache, resolution and headache. Laboratory testing is unremarkable. Patient will maintain hydration at home she will monitor symptoms closely and return as needed. Undiagnosed new problem with uncertain prognosis? @ -No Drug Therapy requiring intensive monitoring for toxicity (Heparin, Nitro, Insulin, Cardizem)? @ -No Were any procedures done? @ -No Diagnosis/symptom? @ -Headache Acute, or Chronic, or Acute on Chronic? @ -[Acute Uncomplicated (without systemic symptoms) or Complicated (systemic symptoms)? @ -Default Side effects of treatment? @ -No Exacerbation, Progression, or Severe Exacerbation? @ -No Poses a threat to life or bodily function? How? (Chest pain, USA, DC, pneumonia, PE, COPD, DKA, ARF, appy, cholecystitis, CVA, Diverticulitis, Homicidal, Suicidal, threat to staff... and all critical care pts) @ -[Low risk at this time - Lab Data Result diagrams: 10/08/23 17:28 10/08/23 17:19 Lab Results 10/08/23 10/08/23 10/08/23 Range/Units 17:19 17:19 17:19 WBC (3.8-10.6) k/uL RBC (3.80-5.40) m/uL Hgb (11.4-16.0) gm/dL Hct (34.0-46.0) % MCV (80.0-100.0) fL MCH (25.0-35.0) pg MCHC (31.0-37.0) g/dL RDW (11.5-15.5) % Plt Count (150-450) k/uL MPV Neutrophils % % Lymphocytes % % Monocytes % % Eosinophils % % Basophils % % Neutrophils # (1.3-7.7) k/uL Lymphocytes # (1.0-4.8) k/uL Monocytes # (0-1.0) k/uL Eosinophils # (0-0.7) k/uL Basophils # (0-0.2) k/uL Sodium 138 (137-145) mmol/L Potassium 4.1 (3.5-5.1) mmol/L Chloride 110 H (98-107) mmol/L Carbon Dioxide 24 (22-30) mmol/L Anion Gap 4 mmol/L BUN 11 (7-17) mg/dL Creatinine 0.79 (0.52-1.04) mg/dL Est GFR (CKD-EPI)AfAm >90 (>60 ml/min/1.73 sqM) Est GFR (CKD-EPI)NonAf >90 (>60 ml/min/1.73 sqM) Glucose 86 (74-99) mg/dL Calcium 8.9 (8.4-10.2) mg/dL Total Bilirubin 0.4 (0.2-1.3) mg/dL AST 27 (14-36) U/L ALT 43 H (4-34) U/L Alkaline Phosphatase 38 (38-126) U/L Total Protein 6.1 L (6.3-8.2) g/dL Albumin 4.0 (3.5-5.0) g/dL Urine Color Colorless Urine Appearance Cloudy H (Clear) Urine pH 7.5 (5.0-8.0) Ur Specific [place] 1.014 (1.001-1.035) Urine Protein Negative (Negative) Urine Glucose (UA) Negative (Negative) Urine Ketones Negative (Negative) Urine Blood Negative (Negative) Urine Nitrite Negative (Negative) Urine Bilirubin Negative (Negative) Urine Urobilinogen <2.0 (<2.0) mg/dL Ur Leukocyte Esterase Negative (Negative) Urine RBC <1 (0-5) /hpf Urine WBC 1 (0-5) /hpf Ur Squamous Epith Cells <1 (0-4) /hpf Amorphous Sediment Occasional H (None) /hpf Urine Bacteria Occasional H (None) /hpf Influenza Type A (PCR) Not Detected (Not Detectd) Influenza Type B (PCR) Not Detected (Not Detectd) RSV (PCR) Not Detected (Not Detectd) SARS-CoV-2 (PCR) Not Detected (Not Detectd) 10/08/23 Range/Units 17:28 WBC 4.1 (3.8-10.6) k/uL RBC 4.17 (3.80-5.40) m/uL Hgb 12.7 (11.4-16.0) gm/dL Hct 37.2 (34.0-46.0) % MCV 89.3 (80.0-100.0) fL MCH 30.5 (25.0-35.0) pg MCHC 34.2 (31.0-37.0) g/dL RDW 12.2 (11.5-15.5) % Plt Count 182 (150-450) k/uL MPV 9.1 Neutrophils % 32 % Lymphocytes % 54 % Monocytes % 8 % Eosinophils % 3 % Basophils % 1 % Neutrophils # 1.3 (1.3-7.7) k/uL Lymphocytes # 2.2 (1.0-4.8) k/uL Monocytes # 0.3 (0-1.0) k/uL Eosinophils # 0.1 (0-0.7) k/uL Basophils # 0.0 (0-0.2) k/uL Sodium (137-145) mmol/L Potassium (3.5-5.1) mmol/L Chloride (98-107) mmol/L Carbon Dioxide (22-30) mmol/L Anion Gap mmol/L BUN (7-17) mg/dL Creatinine (0.52-1.04) mg/dL Est GFR (CKD-EPI)AfAm (>60 ml/min/1.73 sqM) Est GFR (CKD-EPI)NonAf (>60 ml/min/1.73 sqM) Glucose (74-99) mg/dL Calcium (8.4-10.2) mg/dL Total Bilirubin (0.2-1.3) mg/dL AST (14-36) U/L ALT (4-34) U/L Alkaline Phosphatase (38-126) U/L Total Protein (6.3-8.2) g/dL Albumin (3.5-5.0) g/dL Urine Color Urine Appearance (Clear) Urine pH (5.0-8.0) Ur Specific [place] (1.001-1.035) Urine Protein (Negative) Urine Glucose (UA) (Negative) Urine Ketones (Negative) Urine Blood (Negative) Urine Nitrite (Negative) Urine Bilirubin (Negative) Urine Urobilinogen (<2.0) mg/dL Ur Leukocyte Esterase (Negative) Urine RBC (0-5) /hpf Urine WBC (0-5) /hpf Ur Squamous Epith Cells (0-4) /hpf Amorphous Sediment (None) /hpf Urine Bacteria (None) /hpf Influenza Type A (PCR) (Not Detectd) Influenza Type B (PCR) (Not Detectd) RSV (PCR) (Not Detectd) SARS-CoV-2 (PCR) (Not Detectd) Disposition Clinical Impression: Headache Disposition: HOME SELF-CARE Condition: Fair Instructions (If sedation given, give patient instructions): Acute Headache (ED) Is patient prescribed a controlled substance at d/c from ED?: No Referrals: Reinaldo Donaldson [Primary Care Provider] - 1-2 days Time of Disposition: 18:54
[2023-10-08 17:32] LABS: Basophils % (A) 1 %; Eosinophils # (A) 0.1 k/uL (0-0.7); Eosinophils % (A) 3 %; HCT 37.2 % (34.0-46.0); HGB 12.7 gm/dL (11.4-16.0); Lymphocytes # (A) 2.2 k/uL (1.0-4.8); Lymphocytes % (A) 54 %; MCH 30.5 pg (25.0-35.0); MCHC 34.2 g/dL (31.0-37.0); MCV 89.3 fL (80.0-100.0); Mean Platelet Volume 9.1; Monocytes # (A) 0.3 k/uL (0-1.0); Monocytes % (A) 8 %; Neutrophils # (A) 1.3 k/uL (1.3-7.7); Neutrophils % (A) 32 %; Platelet Count 182 k/uL (150-450); RBC 4.17 m/uL (3.80-5.40); RDW 12.2 % (11.5-15.5); WBC 4.1 k/uL (3.8-10.6)
[2023-10-08] MEDS: METOCLOPRAMIDE 5 MG/ML 2 ML VIAL IVP STA (17:40)
[2023-10-08] MEDS: KETOROLAC 15 MG/ML 1 ML VIAL IVP STA (17:41)
[2023-10-08] MEDS: SODIUM CHLORIDE 0.9% 1,000 ML IV ONE (17:42)
[2023-10-08] MEDS: ACETAMINOPHEN TAB 500 MG TAB PO STA (17:42)
[2023-10-08 17:43] LABS: ALT 43 U/L (4-34); AST 27 U/L (14-36); African American GFR (CKD) >90 (>60 ml/min/1.73 sqM); Alkaline Phosphatase 38 U/L (38-126); Anion Gap 4 mmol/L; Blood Urea Nitrogen 11 mg/dL (7-17); Calcium 8.9 mg/dL (8.4-10.2); Carbon Dioxide 24 mmol/L (22-30); Chloride 110 mmol/L (98-107); Glucose 86 mg/dL (74-99); Non-African American GFR(CKD) >90 (>60 ml/min/1.73 sqM); Potassium 4.1 mmol/L (3.5-5.1); Sodium 138 mmol/L (137-145); Total Bilirubin 0.4 mg/dL (0.2-1.3); Total Protein 6.1 g/dL (6.3-8.2)
[2023-10-08 18:06] LABS: Amorphous Sediment,Urine Occasional /hpf; Appearance,Urine Cloudy (Clear); Bacteria,Urine Occasional /hpf; Bilirubin,Urine Negative (Negative); Blood,Urine Negative (Negative); Color,Urine Colorless; Glucose,Urine (UA) Negative (Negative); Ketones,Urine Negative (Negative); Leukocyte Esterase,Urine Negative (Negative); Nitrite,Urine Negative (Negative); PH, Urine 7.5 (5.0-8.0); Protein,Urine Negative (Negative); RBC,Urine <1 /hpf (0-5); Specific Gravity,Urine 1.014 (1.001-1.035); Squamous Epithelial Cell,Urine <1 /hpf (0-4); Urobilinogen,Urine <2.0 mg/dL (<2.0); WBC,Urine 1 /hpf (0-5)
[2023-10-08 20:07] VITALS: BP 125/84; PULSE 64; RESP 16
== END 2023-10-08 20:07 | disposition home or self-care (01) ==
LOC: EC 14:48
DX: R51.9 Headache, unspecified
CPT/HCPCS: 36415; 80053; 81001; 85025; 87636; 96361; 96374; 96375; 99284

== ENCOUNTER 2023-10-10 00:03 | Emergency (ER) | payer OTHER ==
[2023-10-10 05:43] VITALS: BP 131/84; PULSE 78; RESP 18; TEMP 97.1
[2023-10-10 08:52] LABS: ALT 49 U/L (4-34); AST 28 U/L (14-36); African American GFR (CKD) >90 (>60 ml/min/1.73 sqM); Albumin 4.4 g/dL (3.5-5.0); Alkaline Phosphatase 42 U/L (38-126); Anion Gap 5 mmol/L; Blood Urea Nitrogen 12 mg/dL (7-17); Calcium 9.9 mg/dL (8.4-10.2); Carbon Dioxide 25 mmol/L (22-30); Chloride 106 mmol/L (98-107); Glucose 81 mg/dL (74-99); Non-African American GFR(CKD) >90 (>60 ml/min/1.73 sqM); Potassium 4.1 mmol/L (3.5-5.1); Sodium 136 mmol/L (137-145); Total Bilirubin 0.4 mg/dL (0.2-1.3); Total Protein 6.7 g/dL (6.3-8.2)
[2023-10-10 09:28] LABS: Basophils # (A) 0.1 k/uL (0-0.2); Basophils % (A) 1 %; Eosinophils # (A) 0.1 k/uL (0-0.7); Eosinophils % (A) 2 %; HCT 40.3 % (34.0-46.0); HGB 13.8 gm/dL (11.4-16.0); Lymphocytes # (A) 3.1 k/uL (1.0-4.8); Lymphocytes % (A) 53 %; MCH 30.5 pg (25.0-35.0); MCHC 34.3 g/dL (31.0-37.0); MCV 89.1 fL (80.0-100.0); Monocytes # (A) 0.3 k/uL (0-1.0); Monocytes % (A) 5 %; Neutrophils # (A) 2.1 k/uL (1.3-7.7); Neutrophils % (A) 36 %; Platelet Count 205 k/uL (150-450); RBC 4.52 m/uL (3.80-5.40); RDW 12.4 % (11.5-15.5); WBC 5.8 k/uL (3.8-10.6)
--- NOTE | 2023-12-05 06:10 | ED ---
Syncope HPI - General Chief Complaint: Syncope Time Seen by Provider: 10/10/23 05:55 Source: patient Mode of arrival: ambulatory Limitations: no limitations - History of Present Illness Initial Comments: This patient is 33-year-old woman who presents to have evaluation after she had passed out at work tonight. The patient states that she had been having which she described as a usual migraine earlier through the day. She went to work and then while working she felt lightheaded and passed out. Patient denies injury. There was no reported seizure activity. Patient feels back at baseline MD Complaint: loss of consciousness Onset/Timin -: hour(s) Prodromal Symptoms: lightheaded -: second(s) Witnessed: yes - by bystander Injuries Sustained Associated with Event: None Current Symptoms: back to baseline Context: at rest Treatments Prior to Arrival: none - Related Data Home Medications Medication Instructions Recorded Confirmed Albuterol Inhaler [Ventolin Hfa 2 puff INHALATION RT-Q8H PRN 01/16/23 01/16/23 Inhaler] Cariprazine HCl [Vraylar] 1.5 mg PO HS 01/16/23 01/16/23 Previous Rx's Medication Instructions Recorded Sulfamethox-Tmp 800-160Mg [Bactrim 1 tab PO Q12HR #20 tab 11/16/21 DS 800-160 mg] Acetaminophen Tab [Tylenol] 650 mg PO Q6HR PRN tab 01/21/23 Sulfamethox-Tmp 800-160Mg [Bactrim 1 tab PO Q12HR #20 tab 01/21/23 DS 800-160 mg] clindamycin HCL [Cleocin] 450 mg PO TID 5 Days #45 cap 05/30/23 Famotidine [Pepcid] 20 mg PO BID #14 tablet 08/15/23 Nitrofurantoin Monohyd/M-Cryst 100 mg PO Q12HR #14 cap 08/15/23 [Macrobid] Ondansetron Odt [Zofran Odt] 4 mg PO Q8HR PRN #10 tab 08/15/23 Allergies Allergy/AdvReac Type Severity Reaction Status Date / Time adhesive tape Allergy Rash/Hives Verified 10/08/23 14:56 ceftriaxone sodium Allergy Rash/Hives Verified 10/08/23 14:56 [From Rocephin] FULL BODY latex Allergy Rash/Hives Verified 10/08/23 14:56 bupropion HCl AdvReac Hallucinati Verified 10/08/23 14:56 [From Wellbutrin] ons butalbital AdvReac Hallucinati Verified 10/08/23 14:56 ons Review of Systems ROS Statement: Those systems with pertinent positive or pertinent negative responses have been documented in the HPI. ROS Other: All systems not noted in ROS Statement are negative. Constitutional: Denies: fever, chills, weakness Eyes: Denies: vision change ENT: Denies: ear pain Respiratory: Denies: cough, dyspnea, hemoptysis Cardiovascular: Reports: syncope. Denies: chest pain, palpitations, orthopnea, edema Gastrointestinal: Denies: abdominal pain, nausea, vomiting, diarrhea Genitourinary: Denies: dysuria, hematuria, abnormal menses Musculoskeletal: Denies: back pain Skin: Denies: rash Neurological: Reports: headache (States like her usual migraine). 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 SEVERAL AREAS ON BODY HAD i&D FROM AREAS WITH MRSA Past Anesthesia/Blood Transfusion Reactions: No Reported Reaction Additional Past Anesthesia/Blood Transfusion Reaction / Comment(s): CLAUSTERPHOBIA Past Psychological History: Anxiety, Bipolar, Depression, PTSD Smoking Status: Current every day smoker, Vaper Past Alcohol Use History: Occasional, Rare Past Drug Use History: Marijuana - Past Family History Mother Family Medical History: Myocardial Infarction ([place]) Additional Family Medical History / Comment(s): AT AGE 45 FROM [place] Father Additional Family Medical History / Comment(s): WHEN PT WAS 9 MONTHS OLD FROM A BRAIN ANUERYSM General Exam Limitations: no limitations General appearance: alert, in no apparent distress Head exam: Present: atraumatic, normocephalic Eye exam: Present: normal appearance, PERRL, EOMI. Absent: scleral icterus, conjunctival injection, nystagmus ENT exam: Present: normal oropharynx Neck exam: Present: normal inspection, full ROM. Absent: tenderness, meningismus Respiratory exam: Present: normal lung sounds bilaterally. Absent: respiratory distress, wheezes, rales, rhonchi, stridor, accessory muscle use Cardiovascular Exam: Present: regular rate, normal rhythm, normal heart sounds. Absent: systolic murmur, diastolic murmur, rubs, gallop GI/Abdominal exam: Present: soft. Absent: distended, tenderness, guarding, rebound, rigid, mass Extremities exam: Present: normal inspection, normal capillary refill. Absent: pedal edema, calf tenderness Back exam: Present: normal inspection. Absent: CVA tenderness (R), CVA tenderness (L) Neurological exam: Present: alert, oriented X3, CN II-XII intact. Absent: motor sensory deficit Skin exam: Present: warm, dry, intact, normal color. Absent: rash Course Vital Signs 10/10/23 00:29 Temperature 97.1 F L Pulse Rate 78 Respiratory 18 Rate Blood Pressure 131/84 O2 Sat by Pulse 100 Oximetry EKG Findings - EKG Results: EKG: interpreted by ERMD, sinus rhythm (With sinus arrhythmia, rate 82 bpm), normal axis, normal QRS, normal ST/T - Blocks, [place], Hypertrophy, ST Abn: AV and intraventricular conduction: 1 AV block Medical Decision Making - Medical Decision Making Was pt. sent in by a medical professional or institution (, PA, SPACER TYPE BAR AND SEGMENT, urgent care, hospital, or care home...) When possible be specific @ -[No] Did you speak to anyone other than the patient for history (EMS, parent, family, police, friend...)? What history was obtained from this source @ -[No] Did you review nursing and triage notes (agree or disagree)? Why? @ -[I reviewed and agree with nursing and triage notes] Were old charts reviewed (outside hosp., previous admission, EMS record, old EKG, old radiological studies, urgent care reports/EKG's, care home records)? Report findings @ -[No old charts were reviewed] Differential Diagnosis (chest pain, altered mental status, abdominal pain women, abdominal pain men, vaginal bleeding, weakness, fever, dyspnea, syncope, headache, dizziness, GI bleed, back pain, seizure, CVA, palpatations, mental health, musculoskeletal)? @ -[Differential Syncope: Valvular disease, hypertrophic cardiomyopathy, pulmonary embolism, tamponade, tachycardia, bradycardia, [place], hypovolemia, hemorrhage, dissection, anemia, i ntracranial hemorrhage, seizure, hypoglycemia, carbon monoxide poisoning, this is not meant to be an all-inclusive list. EKG interpreted by me (3pts min.). @ -I interpreted as above X-rays interpreted by me (1pt min.). @ -[None done] CT interpreted by me (1pt min.). @ -[None done] U/S interpreted by me (1pt. min.). @ -[None done] What testing was considered but not performed or refused? (CT, X-rays, U/S, labs)? Why? @ -[None] What meds were considered but not given or refused? Why? @ -[None] Did you discuss the management of the patient with other professionals (professionals i.e. , PA, SPACER TYPE BAR AND SEGMENT, lab, RT, psych nurse, social sciences lecturer, concession cashier, teacher, geographic area intelligence officer, director case management)? Give summary @ -[No] Was smoking cessation discussed for >3mins.? @ -[No] Was critical care preformed (if so, how long)? @ -[No] Were there social determinants of health that impacted care today? How? (Ho melessness, low income, unemployed, alcoholism, drug addiction, transportation, low edu. Level, literacy, decrease access to med. care, prison, rehab)? @ -[No] Was there de-escalation of care discussed even if they declined (Discuss DNR or withdrawal of care, Hospice)? DNR status @ -[No] What co-morbidities impacted this encounter? (DM, HTN, Smoking, COPD, CAD, Cancer, CVA, ARF, Chemo, Hep., AIDS, mental health diagnosis, sleep apnea, morbid obesity)? @ -[None] Was patient admitted / discharged? Hospital course, mention meds given and route, prescriptions, significant lab abnormalities, going to OR and other pertinent info. @ -[Patient is a 33-year-old woman who had syncopal episode at work. Patient has been having what she describes as a typical migraine, no thunderclap type headache. She is back at baseline, feeling better and would like to go home. Discussed appropriate further care and follow-up as well as return parameters Undiagnosed new problem with uncertain prognosis? @ -[No] Drug Therapy requiring intensive monitoring for toxicity (Heparin, Nitro, Insulin, Cardizem)? @ -[No] Were any procedures done? @ -[No] Diagnosis/symptom? @ -[Acute syncopal episode Acute, or Chronic, or Acute on Chronic? @ -Acute Uncomplicated (without systemic symptoms) or Complicated (systemic symptoms)? @ -[Uncomplicated Side effects of treatment? @ -[No] Exacerbation, Progression, or Severe Exacerbation? @ -[No] Poses a threat to life or bodily function? How? (Chest pain, [place], [place], pneumonia, PE, COPD, DKA, ARF, appy, cholecystitis, CVA, Diverticulitis, Homicidal, Suicidal, threat to staff... and all critical care pts) @ -[No] - Lab Data Result diagrams: 10/10/23 01:20 10/10/23 01:20 Lab Results 10/10/23 10/10/23 Range/Units 01:20 01:20 WBC 5.8 (3.8-10.6) k/uL RBC 4.52 (3.80-5.40) m/uL Hgb 13.8 (11.4-16.0) gm/dL Hct 40.3 (34.0-46.0) % MCV 89.1 (80.0-100.0) fL MCH 30.5 (25.0-35.0) pg MCHC 34.3 (31.0-37.0) g/dL RDW 12.4 (11.5-15.5) % Plt Count 205 (150-450) k/uL MPV 10.0 Neutrophils % 36 % Lymphocytes % 53 % Monocytes % 5 % Eosinophils % 2 % Basophils % 1 % Neutrophils # 2.1 (1.3-7.7) k/uL Lymphocytes # 3.1 (1.0-4.8) k/uL Monocytes # 0.3 (0-1.0) k/uL Eosinophils # 0.1 (0-0.7) k/uL Basophils # 0.1 (0-0.2) k/uL Sodium 136 L (137-145) mmol/L Potassium 4.1 (3.5-5.1) mmol/L Chloride 106 (98-107) mmol/L Carbon Dioxide 25 (22-30) mmol/L Anion Gap 5 mmol/L BUN 12 (7-17) mg/dL Creatinine 0.78 (0.52-1.04) mg/dL Est GFR (CKD-EPI)AfAm >90 (>60 ml/min/1.73 sqM) Est GFR (CKD-EPI)NonAf >90 (>60 ml/min/1.73 sqM) Glucose 81 (74-99) mg/dL Calcium 9.9 (8.4-10.2) mg/dL Total Bilirubin 0.4 (0.2-1.3) mg/dL AST 28 (14-36) U/L ALT 49 H (4-34) U/L Alkaline Phosphatase 42 (38-126) U/L Total Protein 6.7 (6.3-8.2) g/dL Albumin 4.4 (3.5-5.0) g/dL Disposition Clinical Impression: Syncope Disposition: HOME SELF-CARE Condition: Good Is patient prescribed a controlled substance at d/c from ED?: No Referrals: Reinaldo Donaldson [Primary Care Provider] - 1-2 days
== END 2023-10-10 06:28 | disposition home or self-care (01) ==
LOC: EC 00:03
DX: R55 Syncope and collapse
CPT/HCPCS: 36415; 80053; 85025; 93005; 99284

== ENCOUNTER 2024-04-18 13:13 | Emergency (ER) | payer OTHER ==
[2024-04-18 13:19] VITALS: TEMP 98.4
--- NOTE | 2024-04-18 13:31 | ED ---
Nausea/Vomiting/Diarrhea HPI - General Chief complaint: Nausea/Vomiting/Diarrhea Stated complaint: vomiting Time Seen by Provider: 04/18/24 13:19 Source: patient, RN notes reviewed Mode of arrival: ambulatory Limitations: no limitations - History of Present Illness Initial comments: 33-year-old female presents emergency department with chief complaint of abdominal pain, nausea vomiting. Patient states started last night headache body aches nausea vomiting diarrhea symptoms have persisted she states she feels dehydrated complaining of diffuse abdominal pain. Patient denies any chest pain shortness of breath denies take any medications for symptoms. No sick contacts. - Related Data Home Medications Medication Instructions Recorded Confirmed Albuterol Inhaler [Ventolin Hfa 2 puff INHALATION RT-Q8H PRN 01/16/23 01/16/23 Inhaler] Cariprazine HCl [Vraylar] 1.5 mg PO HS 01/16/23 01/16/23 Previous Rx's Medication Instructions Recorded Sulfamethox-Tmp 800-160Mg [Bactrim 1 tab PO Q12HR #20 tab 11/16/21 DS 800-160 mg] Acetaminophen Tab [Tylenol] 650 mg PO Q6HR PRN tab 01/21/23 Sulfamethox-Tmp 800-160Mg [Bactrim 1 tab PO Q12HR #20 tab 01/21/23 DS 800-160 mg] clindamycin HCL [Cleocin] 450 mg PO TID 5 Days #45 cap 05/30/23 Famotidine [Pepcid] 20 mg PO BID #14 tablet 08/15/23 Nitrofurantoin Monohyd/M-Cryst 100 mg PO Q12HR #14 cap 08/15/23 [Macrobid] Ondansetron Odt [Zofran Odt] 4 mg PO Q8HR PRN #10 tab 08/15/23 Ondansetron Odt [Zofran Odt] 4 mg PO Q8HR PRN #10 tab 04/18/24 Allergies Allergy/AdvReac Type Severity Reaction Status Date / Time adhesive tape Allergy Rash/Hives Verified 04/18/24 13:19 ceftriaxone sodium Allergy Rash/Hives Verified 04/18/24 13:19 [From Rocephin] FULL BODY latex Allergy Rash/Hives Verified 04/18/24 13:19 bupropion HCl AdvReac Hallucinati Verified 04/18/24 13:19 [From Wellbutrin] ons butalbital AdvReac Hallucinati Verified 04/18/24 13:19 ons Review of Systems ROS Statement: Those systems with pertinent positive or pertinent negative responses have been documented in the HPI. ROS Other: All systems not noted in ROS Statement are negative. Past Medical History Past Medical History: Asthma, Thyroid Disorder Additional Past Medical History / Comment(s): INSOMNIA; BODERLINE PERSONALITY DISORDER, back pain hx of syncope, MURMUR CHILD,BRONCHITIS,CARPAL TUNNEL,ARHTIRITS,UTI'S, MIGRAINES."herniated disc neck/back" colitis; Degenerative Disc Disease History of Any Multi-Drug Resistant Organisms: MRSA Date of last positivie culture/infection: 01/11/23 MDRO Source:: Left Leg Past Surgical History: Adenoidectomy, Tonsillectomy Additional Past Surgical History / Comment(s): teeth pulled. SEVERAL AREAS ON BODY HAD i&D FROM AREAS WITH MRSA Past Anesthesia/Blood Transfusion Reactions: No Reported Reaction Additional Past Anesthesia/Blood Transfusion Reaction / Comment(s): CLAUSTERPHOBIA Past Psychological History: Anxiety, Bipolar, Depression, PTSD Smoking Status: Current every day smoker, Vaper Past Alcohol Use History: Occasional, Rare Past Drug Use History: Marijuana - Past Family History Mother Family Medical History: [place]ocardial Infarction ([place]) Additional Family Medical History / Comment(s): AT AGE 45 [place] Father Additional Family Medical History / Comment(s): WHEN PT WAS 9 MONTHS OLD FROM A BRAIN ANUERYSM General Exam Limitations: no limitations General appearance: alert, in no apparent distress Head exam: Present: atraumatic, normocephalic, normal inspection Eye exam: Present: normal appearance, PERRL, EOMI. Absent: scleral icterus, conjunctival injection, periorbital swelling ENT exam: Present: normal exam, mucous membranes moist Neck exam: Present: normal inspection, full ROM. Absent: tenderness, meningismus, lymphadenopathy Respiratory exam: Present: normal lung sounds bilaterally. Absent: respiratory distress, wheezes, rales, rhonchi, stridor Cardiovascular Exam: Present: normal rhythm, tachycardia, normal heart sounds. Absent: systolic murmur, diastolic murmur, rubs, gallop, clicks GI/Abdominal exam: Present: soft, tenderness (Minimal diffuse), normal bowel sounds. Absent: distended, guarding, rebound, rigid Neurological exam: Present: alert Course Vital Signs 04/18/24 13:16 Temperature 98.4 F Pulse Rate 112 H Respiratory 15 Rate Blood Pressure 121/78 O2 Sat by Pulse 97 Oximetry Medical Decision Making - Medical Decision Making Was pt. sent in by a medical professional or institution (, GENEVIEVE, LABOR/EXCAVATOR, urgent care, hospital, or skilled nursing...) When possible be specific @ -No Did you speak to anyone other than the patient for history (EMS, parent, family, police, friend...)? What history was obtained from this source @ -No Did you review nursing and triage notes (agree or disagree)? Why? @ -I reviewed and agree with nursing and triage notes Were old charts reviewed (outside hosp., previous admission, EMS record, old EKG, old radiological studies, urgent care reports/EKG's, skilled nursing records)? Report findings @ -No old charts were reviewed Differential Diagnosis (chest pain, altered mental status, abdominal pain women, abdominal pain men, vaginal bleeding, weakness, fever, dyspnea, syncope, headache, dizziness, GI bleed, back pain, seizure, CVA, palpatations, mental health, musculoskeletal)? @ -Differential Abdominal Pain Women: Appendicitis, Cholecystitis, diverticulosis, ischemic bowel, pancreatitis, hepatitis, UTI, gastroenteritis, AAA, incarcerated hernia, bowel obstruction, constipation, inflammatory bowel, hepatitis, peptic ulcer disease, splenic infarction, perforated viscus, vulvitis, ovarian torsion, PID, kidney stone, placenta abruption, this is not meant to be an all-inclusive list EKG interpreted by me (3pts min.). @ -[None X-rays interpreted by me (1pt min.). @ -None done CT interpreted by me (1pt min.). @ -None done U/S interpreted by me (1pt. min.). @ -None done What testing was considered but not performed or refused? (CT, X-rays, U/S, labs)? Why? @ -None What meds were considered but not given or refused? Why? @ -None Did you discuss the management of the patient with other professionals (professionals i.e. GENEVIEVE Mason, LABOR/EXCAVATOR, lab, RT, psych nurse, social media manager, placement specialist, teacher, chief operations officer, case fitter)? Give summary @ -No Was smoking cessation discussed for >3mins.? @ -No Was critical care preformed (if so, how long)? @ -No Were there social determinants of health that impacted care today? How? (Homelessness, low income, unemployed, alcoholism, drug addiction, transportation, low edu. Level, literacy, decrease access to med. care, [facility]ci, rehab)? @ -No Was there de-escalation of care discussed even if they declined (Discuss DNR or withdrawal of care, Hospice)? DNR status @ -No What co-morbidities impacted this encounter? (DM, HTN, Smoking, COPD, CAD, Cancer, CVA, ARF, Chemo, Hep., AIDS, mental health diagnosis, sleep apnea, morbid obesity)? @ -None Was patient admitted / discharged? Hospital course, mention meds given and route, prescriptions, significant lab abnormalities, going to OR and other pertinent info. @ -Discharge patient feels great improved with IV fluids antibiotics laboratory studies and viral swab are negative for acute process. Patient feels comfortable discharge with antibiotics and close follow-up return parameters Undiagnosed new problem with uncertain prognosis? @ -No Drug Therapy requiring intensive monitoring for toxicity (Heparin, Nitro, Insulin, Cardizem)? @ -No Were any procedures done? @ -No Diagnosis/symptom? @ -Nausea vomiting diarrhea Acute, or Chronic, or Acute on Chronic? @ -Acute Uncomplicated (without systemic symptoms) or Complicated (systemic symptoms)? @ -Uncomplicated Side effects of treatment? @ -No Exacerbation, Progression, or Severe Exacerbation? @ -No Poses a threat to life or bodily function? How? (Chest pain, [place], [place], pneumonia, PE, COPD, DKA, ARF, appy, cholecystitis, CVA, Diverticulitis, Homicidal, Suicidal, threat to staff... and all critical care pts) @ -No - Lab Data Result diagrams: 04/18/24 13:50 04/18/24 13:50 Lab Results 04/18/24 04/18/24 04/18/24 Range/Units 13:50 13:50 13:50 WBC 6.7 (3.8-10.6) k/uL RBC 4.76 (3.80-5.40) m/uL Hgb 14.3 (11.4-16.0) gm/dL Hct 43.4 (34.0-46.0) % MCV 91.1 (80.0-100.0) fL MCH 30.0 (25.0-35.0) pg MCHC 32.9 (31.0-37.0) g/dL RDW 11.8 (11.5-15.5) % Plt Count 210 (150-450) k/uL MPV 9.3 Neutrophils % 86 % Lymphocytes % 8 % Monocytes % 4 % Eosinophils % 1 % Basophils % 0 % Neutrophils # 5.7 (1.3-7.7) k/uL Lymphocytes # 0.6 L (1.0-4.8) k/uL Monocytes # 0.3 (0-1.0) k/uL Eosinophils # 0.0 (0-0.7) k/uL Basophils # 0.0 (0-0.2) k/uL Sodium 134 L (137-145) mmol/L Potassium 4.2 (3.5-5.1) mmol/L Chloride 104 (98-107) mmol/L Carbon Dioxide 22 (22-30) mmol/L Anion Gap 8 mmol/L BUN 14 (7-17) mg/dL Creatinine 0.55 (0.52-1.04) mg/dL Est GFR (CKD-EPI)AfAm >90 (>60 ml/min/1.73 sqM) Est GFR (CKD-EPI)NonAf >90 (>60 ml/min/1.73 sqM) Glucose 96 (74-99) mg/dL Calcium 8.5 (8.4-10.2) mg/dL Total Bilirubin 0.9 (0.2-1.3) mg/dL AST 27 (14-36) U/L ALT 44 H (4-34) U/L Alkaline Phosphatase 35 L (38-126) U/L Total Protein 6.3 (6.3-8.2) g/dL Albumin 3.9 (3.5-5.0) g/dL Lipase 63 (23-300) U/L Urine Color Urine Appearance (Clear) Urine pH (5.0-8.0) Ur Specific Hart (1.001-1.035) Urine Protein (Negative) Urine Glucose (UA) (Negative) Urine Ketones (Negative) Urine Blood (Negative) Urine Nitrite (Negative) Urine Bilirubin (Negative) Urine Urobilinogen (<2.0) mg/dL Ur Leukocyte Esterase (Negative) Urine HCG, Qual (Not Detectd) Influenza Type A (PCR) Not Detected (Not Detectd) Influenza Type B (PCR) Not Detected (Not Detectd) RSV (PCR) Not Detected (Not Detectd) SARS-CoV-2 (PCR) Not Detected (Not Detectd) 04/18/24 04/18/24 Range/Units 14:43 14:43 WBC (3.8-10.6) k/uL RBC (3.80-5.40) m/uL Hgb (11.4-16.0) gm/dL Hct (34.0-46.0) % MCV (80.0-100.0) fL MCH (25.0-35.0) pg MCHC (31.0-37.0) g/dL RDW (11.5-15.5) % Plt Count (150-450) k/uL MPV Neutrophils % % Lymphocytes % % Monocytes % % Eosinophils % % Basophils % % Neutrophils # (1.3-7.7) k/uL Lymphocytes # (1.0-4.8) k/uL Monocytes # (0-1.0) k/uL Eosinophils # (0-0.7) k/uL Basophils # (0-0.2) k/uL Sodium (137-145) mmol/L Potassium (3.5-5.1) mmol/L Chloride (98-107) mmol/L Carbon Dioxide (22-30) mmol/L Anion Gap mmol/L BUN (7-17) mg/dL Creatinine (0.52-1.04) mg/dL Est GFR (CKD-EPI)AfAm (>60 ml/min/1.73 sqM) Est GFR (CKD-EPI)NonAf (>60 ml/min/1.73 sqM) Glucose (74-99) mg/dL Calcium (8.4-10.2) mg/dL Total Bilirubin (0.2-1.3) mg/dL AST (14-36) U/L ALT (4-34) U/L Alkaline Phosphatase (38-126) U/L Total Protein (6.3-8.2) g/dL Albumin (3.5-5.0) g/dL Lipase (23-300) U/L Urine Color Yellow Urine Appearance Clear (Clear) Urine pH 7.5 (5.0-8.0) Ur Specific Hart 1.029 (1.001-1.035) Urine Protein Trace H (Negative) Urine Glucose (UA) Negative (Negative) Urine Ketones Negative (Negative) Urine Blood Negative (Negative) Urine Nitrite Negative (Negative) Urine Bilirubin Negative (Negative) Urine Urobilinogen <2.0 (<2.0) mg/dL Ur Leukocyte Esterase Negative (Negative) Urine HCG, Qual Not Detected (Not Detectd) Influenza Type A (PCR) (Not Detectd) Influenza Type B (PCR) (Not Detectd) RSV (PCR) (Not Detectd) SARS-CoV-2 (PCR) (Not Detectd) Disposition Clinical Impression: Gastroenteritis Disposition: HOME SELF-CARE Condition: Stable Instructions (If sedation given, give patient instructions): Acute Nausea and Vomiting (ED) Additional Instructions: Please return to the Emergency Department if symptoms worsen or any other concerns. Prescriptions: Ondansetron Odt [Zofran Odt] 4 mg PO Q8HR PRN #10 tab PRN Reason: Nausea Is patient prescribed a controlled substance at d/c from ED?: No Referrals: Reinaldo Donaldson [Primary Care Provider] - 1-2 days Time of Disposition: 15:22
[2024-04-18] MEDS: SODIUM CHLORIDE 0.9% 1,000 ML IV SCH (13:45)
[2024-04-18] MEDS: PANTOPRAZOLE 40 MG/10 ML VIAL IVP STA (13:52)
[2024-04-18] MEDS: ONDANSETRON 4 MG/2 ML VIAL IVP STA (13:52)
[2024-04-18] MEDS: diphenhydrAMINE 50 MG/ML 1 ML VIAL IVP STA (13:53)
[2024-04-18] MEDS: KETOROLAC 15 MG/ML 1 ML VIAL IVP STA (13:53)
[2024-04-18 14:06] LABS: Basophils % (A) 0 %; Eosinophils % (A) 1 %; HCT 43.4 % (34.0-46.0); HGB 14.3 gm/dL (11.4-16.0); Lymphocytes # (A) 0.6 k/uL (1.0-4.8); Lymphocytes % (A) 8 %; MCHC 32.9 g/dL (31.0-37.0); MCV 91.1 fL (80.0-100.0); Mean Platelet Volume 9.3; Monocytes # (A) 0.3 k/uL (0-1.0); Monocytes % (A) 4 %; Neutrophils # (A) 5.7 k/uL (1.3-7.7); Neutrophils % (A) 86 %; Platelet Count 210 k/uL (150-450); RBC 4.76 m/uL (3.80-5.40); RDW 11.8 % (11.5-15.5); WBC 6.7 k/uL (3.8-10.6)
[2024-04-18 14:19] LABS: ALT 44 U/L (4-34); African American GFR (CKD) >90 (>60 ml/min/1.73 sqM); Albumin 3.9 g/dL (3.5-5.0); Anion Gap 8 mmol/L; Blood Urea Nitrogen 14 mg/dL (7-17); Calcium 8.5 mg/dL (8.4-10.2); Carbon Dioxide 22 mmol/L (22-30); Chloride 104 mmol/L (98-107); Glucose 96 mg/dL (74-99); Lipase 63 U/L (23-300); Non-African American GFR(CKD) >90 (>60 ml/min/1.73 sqM); Sodium 134 mmol/L (137-145); Total Bilirubin 0.9 mg/dL (0.2-1.3); Total Protein 6.3 g/dL (6.3-8.2)
[2024-04-18 14:20] LABS: AST 27 U/L (14-36); Alkaline Phosphatase 35 U/L (38-126); Potassium 4.2 mmol/L (3.5-5.1)
[2024-04-18 14:44] LABS: Influenza A Not Detected (Not Detectd); Influenza B Not Detected (Not Detectd); RSV Not Detected (Not Detectd)
[2024-04-18 15:07] LABS: Appearance,Urine Clear (Clear); Bilirubin,Urine Negative (Negative); Blood,Urine Negative (Negative); Color,Urine Yellow; Glucose,Urine (UA) Negative (Negative); Ketones,Urine Negative (Negative); Leukocyte Esterase,Urine Negative (Negative); Nitrite,Urine Negative (Negative); PH, Urine 7.5 (5.0-8.0); Protein,Urine Trace (Negative); Specific Gravity,Urine 1.029 (1.001-1.035); Urobilinogen,Urine <2.0 mg/dL (<2.0)
[2024-04-18 15:31] VITALS: BP 101/52; PULSE 85; RESP 18
== END 2024-04-18 15:37 | disposition home or self-care (01) ==
LOC: EC 13:13
DX: K52.9 Noninfective gastroenteritis and colitis, unspecified (principal); F17.290 Nicotine dependence, other tobacco product, uncomplicated
CPT/HCPCS: 36415; 80053; 83690; 85025; 81003; 81025; 87636; 99284; 96374; 96375; 96361; J1200; J2405; J1885; J2470

== ENCOUNTER 2024-05-17 20:26 | Emergency (ER) | payer OTHER ==
[2024-05-17 20:30] VITALS: BP 104/73; PULSE 96; RESP 18; TEMP 98
--- NOTE | 2024-05-17 21:11 | ED ---
General Adult HPI - General Chief complaint: Skin/Abscess/Foreign Body Stated complaint: Abscess on stomach Time Seen by Provider: 05/17/24 20:31 Source: patient Mode of arrival: ambulatory Limitations: no limitations - History of Present Illness Initial comments: 33-year-old female with history of high vaginitis suppurativa presenting with chief complaint of abscess. Abscess is located on the right lower abdomen. States that it started yesterday but was very small and throughout the day increased in size. She went to urgent care earlier today and was started on Bactrim. She states that at home she was able to express some pus from the area. She came in because she was having increasing soreness surrounding the area and some increasing redness. No fever. No vomiting. She states that she is having diffuse muscle aches. - Related Data Home Medications Medication Instructions Recorded Confirmed Albuterol Inhaler [Ventolin Hfa 2 puff INHALATION RT-Q8H PRN 01/16/23 01/16/23 Inhaler] Cariprazine HCl [Vraylar] 1.5 mg PO HS 01/16/23 01/16/23 Previous Rx's Medication Instructions Recorded Sulfamethox-Tmp 800-160Mg [Bactrim 1 tab PO Q12HR #20 tab 11/16/21 DS 800-160 mg] Acetaminophen Tab [Tylenol] 650 mg PO Q6HR PRN tab 01/21/23 Sulfamethox-Tmp 800-160Mg [Bactrim 1 tab PO Q12HR #20 tab 01/21/23 DS 800-160 mg] clindamycin HCL [Cleocin] 450 mg PO TID 5 Days #45 cap 05/30/23 Famotidine [Pepcid] 20 mg PO BID #14 tablet 08/15/23 Nitrofurantoin Monohyd/M-Cryst 100 mg PO Q12HR #14 cap 08/15/23 [Macrobid] Ondansetron Odt [Zofran Odt] 4 mg PO Q8HR PRN #10 tab 08/15/23 Ondansetron Odt [Zofran Odt] 4 mg PO Q8HR PRN #10 tab 04/18/24 Cephalexin [Keflex] 500 mg PO Q6HR 7 Days #28 cap 05/17/24 Allergies Allergy/AdvReac Type Severity Reaction Status Date / Time adhesive tape Allergy Rash/Hives Verified 05/17/24 20:30 ceftriaxone sodium Allergy Rash/Hives Verified 05/17/24 20:30 [From Rocephin] FULL BODY latex Allergy Rash/Hives Verified 05/17/24 20:30 bupropion HCl AdvReac Hallucinati Verified 05/17/24 20:30 [From Wellbutrin] ons butalbital AdvReac Hallucinati Verified 05/17/24 20:30 ons Review of Systems ROS Statement: Those systems with pertinent positive or pertinent negative responses have been documented in the HPI. ROS Other: All systems not noted in ROS Statement are negative. Past Medical History Past Medical History: Asthma, Thyroid Disorder Additional Past Medical History / Comment(s): INSOMNIA; BODERLINE PERSONALITY DISORDER, back pain hx of syncope, MURMUR CHILD,BRONCHITIS,CARPAL TUNNEL,ARHTIRITS,UTI'S, MIGRAINES."herniated disc neck/back" colitis; Degenerative Disc Disease; Hidradenitis Suppurativa History of Any Multi-Drug Resistant Organisms: MRSA Date of last positivie culture/infection: 01/11/23 MDRO Source:: Left Leg Past Surgical History: Adenoidectomy, Tonsillectomy Additional Past Surgical History / Comment(s): teeth pulled. SEVERAL AREAS ON BODY HAD i&D FROM AREAS WITH MRSA Past Anesthesia/Blood Transfusion Reactions: No Reported Reaction Additional Past Anesthesia/Blood Transfusion Reaction / Comment(s): CLAUSTERPHOBIA Past Psychological History: Anxiety, Bipolar, Depression, PTSD Smoking Status: Current every day smoker, Vaper Past Alcohol Use History: Occasional, Rare Past Drug Use History: Marijuana - Past Family History Mother Family Medical History: Myocardial Infarction ([place]) Additional Family Medical History / Comment(s): AT AGE 45 FROM [place] Father Additional Family Medical History / Comment(s): WHEN PT WAS 9 MONTHS OLD FROM A BRAIN ANUERYSM General Exam Limitations: no limitations General appearance: alert, in no apparent distress Head exam: Present: atraumatic, normocephalic, normal inspection Eye exam: Present: normal appearance, EOMI Neck exam: Present: normal inspection. Absent: meningismus Respiratory exam: Absent: respiratory distress Cardiovascular Exam: Present: regular rate Neurological exam: Present: alert, oriented X3 Psychiatric exam: Present: normal affect, normal mood Expanded Type of lesion: Present: abscess (Indurated abscess to the right lower abdomen) Course Vital Signs 05/17/24 20:28 Temperature 98 F Pulse Rate 96 Respiratory 18 Rate Blood Pressure 104/73 O2 Sat by Pulse 97 Oximetry Medical Decision Making - Medical Decision Making Was pt. sent in by a medical professional or institution (, GENEVIEVE, AUTOMATIC PRESSER, urgent care, hospital, or long term...) When possible be specific @ -No Did you speak to anyone other than the patient for history (EMS, parent, family, police, friend...)? What history was obtained from this source @ -No Did you review nursing and triage notes (agree or disagree)? Why? @ -I reviewed and agree with nursing and triage notes Were old charts reviewed (outside hosp., previous admission, EMS record, old EKG, old radiological studies, urgent care reports/EKG's, long term records)? Report findings @ -No old charts were reviewed Differential Diagnosis (chest pain, altered mental status, abdominal pain women, abdominal pain men, vaginal bleeding, weakness, fever, dyspnea, syncope, headache, dizziness, GI bleed, back pain, seizure, CVA, palpatations, mental health, musculoskeletal)? @ -Differential includes cellulitis, abscess, allergic reaction, not an all- inclusive list EKG interpreted by me (3pts min.). @ -As above X-rays interpreted by me (1pt min.). @ -None done CT interpreted by me (1pt min.). @ -None done U/S interpreted by me (1pt. min.). @ -None done What testing was considered but not performed or refused? (CT, X-rays, U/S, labs)? Why? @ -None What meds were considered but not given or refused? Why? @ -None Did you discuss the management of the patient with other professionals (professionals i.e. GENEVIEVE Mason, AUTOMATIC PRESSER, lab, RT, psych nurse, social work case manager, production drilling machine operator, teacher, audit officer, nurse case manager)? Give summary @ -No Was smoking cessation discussed for >3mins.? @ -No Was critical care preformed (if so, how long)? @ -No Were there social determinants of health that impacted care today? How? (Homelessness, low income, unemployed, alcoholism, drug addiction, transporta tion, low edu. Level, literacy, decrease access to med. care, custodial, rehab)? @ -No Was there de-escalation of care discussed even if they declined (Discuss DNR or withdrawal of care, Hospice)? DNR status @ -No What co-morbidities impacted this encounter? (DM, HTN, Smoking, COPD, CAD, Cancer, CVA, ARF, Chemo, Hep., AIDS, mental health diagnosis, sleep apnea, morbid obesity)? @ -None Was patient admitted / discharged? Hospital course, mention meds given and route, prescriptions, significant lab abnormalities, going to OR and other pertinent info. @ -33-year-old female presenting with chief complaint of abscess to the right lower abdomen wall. On exam there is erythema and induration present, there is no fluctuant area to drain. She states that she did get some drainage out earlier today. She was also started on Bactrim earlier today, she has taken 1 dose so far. Educated the patient on wound care. I informed her that we need to give the medication 24 to 48 hours to take effect. We will also add Keflex. Educated on signs of worsening infection that should prompt reevaluation. Follow-up with PCP. Report back to ER with any new or worsening symptoms. Discussed return parameters and answered all questions. Patient conveyed verbal understanding and agreed to the plan. I discussed this case in detail with my attending Dr. Campbell Undiagnosed new problem with uncertain prognosis? @ -No Drug Therapy requiring intensive monitoring for toxicity (Heparin, Nitro, Insulin, Cardizem)? @ -No Were any procedures done? @ -No Diagnosis/symptom? @ -Abscess Acute, or Chronic, or Acute on Chronic? @ -Acute Uncomplicated (without systemic symptoms) or Complicated (systemic symptoms)? @ -Uncomplicated Side effects of treatment? @ -No Exacerbation, Progression, or Severe Exacerbation? @ -No Poses a threat to life or bodily function? How? (Chest pain, [place], [place], pneumonia, PE, COPD, DKA, ARF, appy, cholecystitis, CVA, Diverticulitis, Homicidal, Suicidal, threat to staff... and all critical care pts) @ -Potential with any infection, low likelihood at this time Disposition Clinical Impression: Abscess Disposition: HOME SELF-CARE Condition: Good Instructions (If sedation given, give patient instructions): Abscess (ED) Additional Instructions: Follow-up with PCP. Report back to ER with any new or worsening symptoms. Continue Bactrim as prescribed by urgent care. Apply warm compresses for 15 minutes often throughout the day to help express any remaining pus. Prescriptions: Cephalexin [Keflex] 500 mg PO Q6HR 7 Days #28 cap Is patient prescribed a controlled substance at d/c from ED?: No Referrals: Reinaldo Donaldson [Primary Care Provider] - 1-2 days Time of Disposition: 21:10
[2024-05-17] MEDS: KETOROLAC 15 MG/ML 1 ML VIAL IM STA (21:29)
== END 2024-05-17 21:24 | disposition home or self-care (01) ==
LOC: EC 20:26
DX: L02.211 Cutaneous abscess of abdominal wall (principal); F17.290 Nicotine dependence, other tobacco product, uncomplicated; Z91.040 Latex allergy status; Z88.8 Allergy status to other drugs, medicaments and biological substances; Z88.1 Allergy status to other antibiotic agents
CPT/HCPCS: 99283; 96372; J1885

== ENCOUNTER 2024-05-18 18:08 | Emergency (ER) | payer OTHER ==
[2024-05-18] MEDS ORDERED: CLINDAMYCIN 600 MG in DEXTROSE 5% IN WATER 50 ML IVPB SCH (19:00)
--- NOTE | 2024-05-18 19:01 | ED ---
General Adult HPI - General Chief complaint: Skin/Abscess/Foreign Body Stated complaint: Recheck-Sore on stomach Time Seen by Provider: 05/18/24 18:15 Source: patient, family, RN notes reviewed Mode of arrival: ambulatory Limitations: no limitations - History of Present Illness Initial comments: Patient is a 33-year-old female present to the emergency department with concerns for abscess to her abdomen. Patient states she was here yesterday and prescribed antibiotics. Patient states no improvement of symptoms, has actually worsened. Patient has increased discomfort. Patient also has some mild congestion and cough. Area of involvement is slightly extended from line written yesterday. - Related Data Home Medications Medication Instructions Recorded Confirmed Cariprazine HCl [Vraylar] 4.5 mg PO HS 05/18/24 05/18/24 Levothyroxine Sodium [Synthroid] 25 mcg PO DAILY 05/18/24 05/18/24 Previous Rx's Medication Instructions Recorded Sulfamethox-Tmp 800-160Mg [Bactrim 1 tab PO Q12HR #20 tab 11/16/21 DS 800-160 mg] Cephalexin [Keflex] 500 mg PO Q6HR 7 Days #28 cap 05/17/24 Ondansetron Odt [Zofran Odt] 4 mg PO Q8HR PRN #10 tab 05/18/24 Allergies Allergy/AdvReac Type Severity Reaction Status Date / Time adhesive tape Allergy Rash/Hives Verified 05/18/24 18:47 ceftriaxone sodium Allergy Rash/Hives Verified 05/18/24 18:47 [From Rocephin] FULL BODY latex Allergy Rash/Hives Verified 05/18/24 18:47 bupropion HCl AdvReac Hallucinati Verified 05/18/24 18:47 [From Wellbutrin] ons butalbital AdvReac Hallucinati Verified 05/18/24 18:47 ons Review of Systems ROS Statement: Those systems with pertinent positive or pertinent negative responses have been documented in the HPI. ROS Other: All systems not noted in ROS Statement are negative. Constitutional: Denies: chills Eyes: Denies: eye pain ENT: Reports: congestion Respiratory: Reports: cough. Denies: dyspnea Cardiovascular: Denies: chest pain Endocrine: Denies: fatigue Gastrointestinal: Reports: as per HPI Skin: Reports: rash Past Medical History Past Medical History: Asthma, Thyroid Disorder Additional Past Medical History / Comment(s): INSOMNIA; BODERLINE PERSONALITY DISORDER, back pain hx of syncope, MURMUR CHILD,BRONCHITIS,CARPAL TUNNEL,ARHTIRITS,UTI'S, MIGRAINES."herniated disc neck/back" colitis; Degenerative Disc Disease; Hidradenitis Suppurativa History of Any Multi-Drug Resistant Organisms: MRSA Date of last positivie culture/infection: 01/11/23 MDRO Source:: Left Leg Past Surgical History: Adenoidectomy, Tonsillectomy Additional Past Surgical History / Comment(s): teeth pulled. SEVERAL AREAS ON BODY HAD i&D FROM AREAS WITH MRSA Past Anesthesia/Blood Transfusion Reactions: No Reported Reaction Additional Past Anesthesia/Blood Transfusion Reaction / Comment(s): CLAUSTERPHOBIA Past Psychological History: Anxiety, Bipolar, Depression, PTSD Smoking Status: Current every day smoker, Vaper Past Alcohol Use History: Occasional, Rare Past Drug Use History: Marijuana - Past Family History Mother Family Medical History: Myocardial Infarction ([place]) Additional Family Medical History / Comment(s): AT AGE 45 FROM [place] Father Additional Family Medical History / Comment(s): WHEN PT WAS 9 MONTHS OLD FROM A BRAIN ANUERYSM General Exam Limitations: no limitations General appearance: alert, in no apparent distress Head exam: Present: normocephalic Eye exam: Present: normal appearance Neck exam: Present: normal inspection Respiratory exam: Present: normal lung sounds bilaterally Cardiovascular Exam: Present: regular rate, normal rhythm GI/Abdominal exam: Present: soft, other (Lower right abdominal cellulitic area with tenderness and warmth). Absent: tenderness Extremities exam: Present: normal inspection Neurological exam: Present: alert Psychiatric exam: Present: normal affect, normal mood Skin exam: Present: erythema (Right lower abdomen, approximately size of a hand with cellulitis appearance, tenderness and warmth) Course Vital Signs 05/18/24 18:10 Temperature 99.2 F Pulse Rate 116 H Respiratory 20 Rate Blood Pressure 138/79 O2 Sat by Pulse 98 Oximetry Medical Decision Making - Medical Decision Making Was pt. sent in by a medical professional or institution (, PA, STUDIO DESIGNER, urgent care, hospital, or half-way...) When possible be specific @ -No Did you speak to anyone other than the patient for history (EMS, parent, family, police, friend...)? What history was obtained from this source @ -No Did you review nursing and triage notes (agree or disagree)? Why? @ -I reviewed and agree with nursing and triage notes Were old charts reviewed (outside hosp., previous admission, EMS record, old EKG, old radiological studies, urgent care reports/EKG's, half-way records)? Report findings @ -No old charts were reviewed Differential Diagnosis (chest pain, altered mental status, abdominal pain women, abdominal pain men, vaginal bleeding, weakness, fever, dyspnea, syncope, headache, dizziness, GI bleed, back pain, seizure, CVA, palpatations, mental health, musculoskeletal)? @ -Differential Fever: Pneumonia, viral URI, endocarditis, myocarditis, pericarditis, otitis, sinusitis, peritonsillar Abscess, retropharyngeal Abscess, epiglottitis, peritonitis, appendicitis, Trayc cystitis, diverticulitis, hepatitis, colitis, UTI, PID, TOA, pyelonephritis, prostatitis, epididymitis, meningitis, encephalitis, pulmonary embolism, CVA, thyroid storm, pancreatitis, adrenal crisis, cavernous sinus thrombosis, this is not meant to be an all-inclusive list. EKG interpreted by me (3pts min.). @ -As above X-rays interpreted by me (1pt min.). @ -None done CT interpreted by me (1pt min.). @ -None done U/S interpreted by me (1pt. min.). @ -None done What testing was considered but not performed or refused? (CT, X-rays, U/S, labs)? Why? @ -None What meds were considered but not given or refused? Why? @ -None Did you discuss the management of the patient with other professionals (professionals i.e. , PA, STUDIO DESIGNER, lab, RT, psych nurse, psychotherapist social worker, timber treatment plant operator, teacher, parking regulation enforcement officer, transplant case manager)? Give summary @ -No Was smoking cessation discussed for >3mins.? @ -No Was critical care preformed (if so, how long)? @ -No Were there social determinants of health that impacted care today? How? (Homelessness, low income, unemployed, alcoholism, drug addiction, transportation, low edu. Level, literacy, decrease access to med. care, correction, rehab)? @ -No Was there de-escalation of care discussed even if they declined (Discuss DNR or withdrawal of care, Hospice)? DNR status @ -No What co-morbidities impacted this encounter? (DM, HTN, Smoking, COPD, CAD, Cancer, CVA, ARF, Chemo, Hep., AIDS, mental health diagnosis, sleep apnea, morbid obesity)? @ -None Was patient admitted / discharged? Hospital course, mention meds given and route, prescriptions, significant lab abnormalities, going to OR and other pertinent info. @ -Patient presents with abdominal wall cellulitis. Since area outlined is only slightly worse than yesterday. Patient has 99 6 temperature. Patient given Ofirmev. Discussion with patient regarding admission or discharge and patient is comfortable with discharge. Patient does have follow-up appointment with her doctor on Saturday. Patient will keep an eye on the area and return for worsening symptoms or fevers or other concerns. Undiagnosed new problem with uncertain prognosis? @ -No Drug Therapy requiring intensive monitoring for toxicity (Heparin, Nitro, Insulin, Cardizem)? @ -No Were any procedures done? @ -No Diagnosis/symptom? @ -Abdominal wall cellulitis Acute, or Chronic, or Acute on Chronic? @ -Acute Uncomplicated (without systemic symptoms) or Complicated (systemic symptoms)? @ -Default Side effects of treatment? @ -No Exacerbation, Progression, or Severe Exacerbation? @ -No Poses a threat to life or bodily function? How? (Chest pain, [place], [place], pneumonia, PE, COPD, DKA, ARF, appy, cholecystitis, CVA, Diverticulitis, Homicidal, Suicidal, threat to staff... and all critical care pts) @ -No - Lab Data Result diagrams: 05/18/24 19:25 05/18/24 19:25 Lab Results 05/18/24 05/18/24 05/18/24 Range/Units 19:25 19:25 19:25 WBC 7.52 (4.50-10.00) 10*3/uL RBC 4.08 L (4.10-5.20) 10*6/uL Hgb 12.3 (12.0-15.0) g/dL Hct 36.0 L (37.2-46.3) % MCV 88.2 (80.0-97.0) fL MCH 30.1 (27.0-32.0) pg MCHC 34.2 (32.0-37.0) g/dL Plt Count 232 (140-440) 10*3/uL MPV 11.0 (9.5-12.2) fL Immature Gran % (Auto) 0.1 % Neutrophils % 60.8 % Lymphocytes % 28.2 % Monocytes % 8.0 % Eosinophils % 2.1 % Basophils % 0.8 % Immature Gran # 0.01 (0.00-0.04) 10*3/uL Neutrophils # 4.57 (1.80-7.70) 10*3/uL Lymphocytes # 2.12 (0.90-5.00) 10*3/uL Monocytes # 0.60 (0.20-1.00) 10*3/uL Eosinophils # 0.16 (0.04-0.35) 10*3/uL Basophils # 0.06 (0.00-0.10) 10*3/uL Sodium 136 L (137-145) mmol/L Potassium 3.9 (3.5-5.1) mmol/L Chloride 104 (98-107) mmol/L Carbon Dioxide 27 (22-30) mmol/L Anion Gap 5 mmol/L BUN 12 (7-17) mg/dL Creatinine 0.77 (0.52-1.04) mg/dL Est GFR (CKD-EPI)AfAm >90 (>60 ml/min/1.73 sqM) Est GFR (CKD-EPI)NonAf >90 (>60 ml/min/1.73 sqM) Glucose 93 (74-99) mg/dL Plasma Lactic Acid Eliu 1.3 (0.7-2.0) mmol/L Calcium 9.0 (8.4-10.2) mg/dL Total Bilirubin 0.6 (0.2-1.3) mg/dL AST 20 (14-36) U/L ALT 38 H (4-34) U/L Alkaline Phosphatase 41 (38-126) U/L Total Protein 6.3 (6.3-8.2) g/dL Albumin 3.8 (3.5-5.0) g/dL Influenza Type A (PCR) (Not Detectd) Influenza Type B (PCR) (Not Detectd) RSV (PCR) (Not Detectd) SARS-CoV-2 (PCR) (Not Detectd) 05/18/24 Range/Units 19:25 WBC (4.50-10.00) 10*3/uL RBC (4.10-5.20) 10*6/uL Hgb (12.0-15.0) g/dL Hct (37.2-46.3) % MCV (80.0-97.0) fL MCH (27.0-32.0) pg MCHC (32.0-37.0) g/dL Plt Count (140-440) 10*3/uL MPV (9.5-12.2) fL Immature Gran % (Auto) % Neutrophils % % Lymphocytes % % Monocytes % % Eosinophils % % Basophils % % Immature Gran # (0.00-0.04) 10*3/uL Neutrophils # (1.80-7.70) 10*3/uL Lymphocytes # (0.90-5.00) 10*3/uL Monocytes # (0.20-1.00) 10*3/uL Eosinophils # (0.04-0.35) 10*3/uL Basophils # (0.00-0.10) 10*3/uL Sodium (137-145) mmol/L Potassium (3.5-5.1) mmol/L Chloride (98-107) mmol/L Carbon Dioxide (22-30) mmol/L Anion Gap mmol/L BUN (7-17) mg/dL Creatinine (0.52-1.04) mg/dL Est GFR (CKD-EPI)AfAm (>60 ml/min/1.73 sqM) Est GFR (CKD-EPI)NonAf (>60 ml/min/1.73 sqM) Glucose (74-99) mg/dL Plasma Lactic Acid Eliu (0.7-2.0) mmol/L Calcium (8.4-10.2) mg/dL Total Bilirubin (0.2-1.3) mg/dL AST (14-36) U/L ALT (4-34) U/L Alkaline Phosphatase (38-126) U/L Total Protein (6.3-8.2) g/dL Albumin (3.5-5.0) g/dL Influenza Type A (PCR) Not Detected (Not Detectd) Influenza Type B (PCR) Not Detected (Not Detectd) RSV (PCR) Not Detected (Not Detectd) SARS-CoV-2 (PCR) Not Detected (Not Detectd) Disposition Clinical Impression: Abdominal wall cellulitis Disposition: HOME SELF-CARE Condition: Stable Instructions (If sedation given, give patient instructions): Cellulitis (ED) Additional Instructions: Please do follow-up with your doctor Saturday as planned. Please return for fevers, increased pain, increased redness, worsening or changing symptoms or other concerns. Prescription for nausea medication sent to pharmacy. Prescriptions: Ondansetron Odt [Zofran Odt] 4 mg PO Q8HR PRN #10 tab PRN Reason: Nausea Is patient prescribed a controlled substance at d/c from ED?: No Referrals: Reinaldo Donaldson [Primary Care Provider] - 1-2 days
[2024-05-18 19:30] LABS: Basophils # (A) 0.06 10*3/uL (0.00-0.10); Basophils % (A) 0.8 %; Eosinophils # (A) 0.16 10*3/uL (0.04-0.35); Eosinophils % (A) 2.1 %; HGB 12.3 g/dL (12.0-15.0); Lymphocytes # (A) 2.12 10*3/uL (0.90-5.00); Lymphocytes % (A) 28.2 %; MCH 30.1 pg (27.0-32.0); MCHC 34.2 g/dL (32.0-37.0); MCV 88.2 fL (80.0-97.0); Neutrophils # (A) 4.57 10*3/uL (1.80-7.70); Neutrophils % (A) 60.8 %; Platelet Count 232 10*3/uL (140-440); RBC 4.08 10*6/uL (4.10-5.20); RDW 12.2 % (11.5-14.5); WBC 7.52 10*3/uL (4.50-10.00)
[2024-05-18 19:59] LABS: ALT 38 U/L (4-34); AST 20 U/L (14-36); African American GFR (CKD) >90 (>60 ml/min/1.73 sqM); Albumin 3.8 g/dL (3.5-5.0); Alkaline Phosphatase 41 U/L (38-126); Anion Gap 5 mmol/L; Blood Urea Nitrogen 12 mg/dL (7-17); Carbon Dioxide 27 mmol/L (22-30); Chloride 104 mmol/L (98-107); Glucose 93 mg/dL (74-99); Non-African American GFR(CKD) >90 (>60 ml/min/1.73 sqM); Potassium 3.9 mmol/L (3.5-5.1); Sodium 136 mmol/L (137-145); Total Bilirubin 0.6 mg/dL (0.2-1.3); Total Protein 6.3 g/dL (6.3-8.2)
[2024-05-18] MEDS: ACETAMINOPHEN IV (For NPO) 1,000 MG in EMPTY BAG 1 BAG IVPB STA (20:02)
[2024-05-18] MEDS: LACTATED RINGERS 1,000 ML IV SCH (20:02)
[2024-05-18 20:09] LABS: Influenza A Not Detected (Not Detectd); Influenza B Not Detected (Not Detectd); RSV Not Detected (Not Detectd)
[2024-05-18] MEDS: CLINDAMYCIN 600 MG in DEXTROSE 5% IN WATER 50 ML IVPB ONE (20:59)
[2024-05-18] MEDS: MORPHINE SULFATE 4 MG/ML SYRINGE IVP STA (21:09)
[2024-05-18] MEDS: ACET/COD 300 MG/30 MG STARTER PACK 6 TAB BTL PO STA (21:16)
[2024-05-18] MEDS: ONDANSETRON 4 MG ODT STARTER PACK 2 TAB BTL PO STA (21:16)
[2024-05-18 22:47] VITALS: BP 115/75; PULSE 87; RESP 16; TEMP 99
[2024-05-19] MEDS ORDERED: CLINDAMYCIN 600 MG in DEXTROSE 5% IN WATER 50 ML IVPB SCH (03:00)
== END 2024-05-18 22:19 | disposition home or self-care (01) ==
LOC: EC 18:08
DX: L03.311 Cellulitis of abdominal wall (principal); F17.290 Nicotine dependence, other tobacco product, uncomplicated; Z91.040 Latex allergy status; Z88.8 Allergy status to other drugs, medicaments and biological substances; Z88.1 Allergy status to other antibiotic agents
CPT/HCPCS: 36415; 80053; 83605; 85025; 87040; 87070; 87205; 87636; 99283; 96365; 96367; 96375; J2270; J0131; S0119; J0736